=== PATIENT | male | born 1950 | race Caucasian/White ===

== ENCOUNTER 2017-11-13 10:04 | Day surgery (SDC) | payer OTHER ==
[2017-11-13 10:20] LABS: Protime INR 0.98
[2017-11-13 10:23] LABS: Absolute Lymphocytes (CBC) 0.8 K/uL (0.7-4.9); Absolute Monocytes 0.5 K/uL (0.1-1.3); Basophils % 0.8 % (0-1.3); Eosinophils % 3.2 % (0-4.4); Hematocrit 32.7 % (39.6-49.0); Lymphocytes % 12.8 % (15.3-44.8); MCH 30.3 pg (27.0-35.0); MCV 91.4 fL (80-100); Monocytes % 7.4 % (3.3-12.3); RBC Red Blood Cell Count 3.58 M/uL (4.33-5.43)
[2017-11-13] MEDS ORDERED: NA CHLORIDE 0.9% 1,000 ML ONE (10:32)
--- NOTE | 2017-11-13 10:47 | RAD REPORT ---
EXAM DESCRIPTION: RAD - Chest Pa And Lat (2 Views) - 11/13/2017 10:03 am CLINICAL HISTORY: Preop chest, pending toe amputation, history of diabetes COMPARISON: January 2017 TECHNIQUE: PA and lateral views of the chest were obtained. FINDINGS: The lungs are mildly fibrotic as a baseline. No peripheral mass, infiltrate or failure fin ding. Heart size is normal and central vasculature is within normal limits. No pleural effusion or pneumothorax seen. Scattered bony degenerative changes are present. No acute or destructive bone pr ocess seen. No acute aortic finding seen. No free air under the diaphragm. Patient has a normal varia nt bowel interposition between the liver and right hemidiaphragm. IMPRESSION: Mild fibrotic pattern not substantially different from comparison imaging. No acute card iopulmonary process.
--- NOTE | 2017-11-13 12:27 | EKG ---
Test Date: 2017-11-13 Test Time: 09:40:21 Business Architect: SARAH MEASUREMENT RESULTS: Intervals: Rate: 74 IA: 156 QRSD: 74 QT: 390 QTc: 432 [place]: P: 33 IA: 156 QRS: 41 T: 45 INTERPRETIVE STATEMENTS: Normal sinus rhythm Normal ECG Compared to ECG 12/10/2015 06:52:06 No significant changes Electronically Signed On 11-13-17 12:25:50 CDT by Boni Frost
[2017-11-13] MEDS ORDERED: MIDAZOLAM HCL 2 MG/2 ML INJ ONE (12:37)
[2017-11-13] MEDS ORDERED: PROPOFOL 200 MG/20 ML VIAL IV ONE (12:37)
[2017-11-13] MEDS ORDERED: FENTANYL CITR 100 MCG/2 ML ONE (12:37)
[2017-11-13] MEDS ORDERED: BUPIVACAINE 0.5% PF 10 ML VIAL ONE (12:51)
[2017-11-13] MEDS ORDERED: LIDOCAINE 1% 20 ML MDV ONE (12:52)
[2017-11-13] MEDS ORDERED: NS 0.9% VIAL 10 ML ONE (13:13)
[2017-11-13] MEDS ORDERED: CEFAZOLIN SODIUM 1 GM/VIAL ONE (13:13)
[2017-11-13] MEDS ORDERED: ONDANSETRON HCL 40 MG/20 ML VIAL ONE (13:30)
[2017-11-13] MEDS ORDERED: EPHEDRINE SULF 50 MG/ML SYR ONE (13:30)
--- NOTE | 2017-11-13 13:31 | P.OP ---
Preoperative diagnosis: left second digit osteomyelitis Primary procedure: Left second digit amputation Anesthesia: mac with 7cc 1:1 1% lidocaine/ 0.5% marcaine plain Estimated blood loss: <20cc Specimen: toe Findings: open wound left second digit with exposure of the proximal phalanx Operative Technique: amputation of the left second digit at the 2nd mpj Complications: None Transferred to: Recovery Room Condition: Good
[2017-11-13] MEDS ORDERED: TRAMADOL HCL 50 MG TAB ONE (14:49)
[2017-11-13 15:19] VITALS: BP 155/77; TEMP 98; O2SAT 97
== END 2017-11-13 14:50 | disposition home or self-care (01) ==
LOC: OR 10:04
PROVIDERS: ATTEND Podiatrist Foot & Ankle Surgery
PROC: 0Y6S0Z0 Detachment at Left 2nd Toe, Complete, Open Approach (ICD-10-PCS; principal; 2017-11-13 12:00)
DX: E11.69 Type 2 diabetes mellitus with other specified complication (principal); M86.8X7 Other osteomyelitis, ankle and foot; E11.52 Type 2 diabetes mellitus with diabetic peripheral angiopathy with gangrene; I96 Gangrene, not elsewhere classified; I10 Essential (primary) hypertension
CPT/HCPCS: 28820; 36415; 71046; 82947; 82962 ×2; 85025; 85610; 85730; 88305; 88311; 93005; J0690; J2250; J2405; J3010; J7030

== ENCOUNTER 2019-04-28 03:26 | Inpatient (IN) | payer OTHER ==
[2019-04-28] MEDS ORDERED: NA CHLORIDE 0.9% 1,000 ML ONE ×2 (03:45→04:46)
[2019-04-28] MEDS ORDERED: INSULIN -REGULAR HUMAN 50 UNIT/0.5 ML ML ONE ×2 (03:45→04:45)
[2019-04-28 03:56] LABS: Absolute Lymphocytes (CBC) 0.6 K/uL (0.7-4.9); Basophils % 0.5 % (0-1.3); Hematocrit 28.6 % (39.6-49.0); Lymphocytes % 4.3 % (15.3-44.8); MPV 8.8 fL (7.6-11.3); RBC Red Blood Cell Count 2.78 M/uL (4.33-5.43)
[2019-04-28] MEDS ORDERED: ONDANSETRON 4 MG/2 ML VIAL ONE (04:04)
[2019-04-28 04:12] LABS: Albumin 3.5 g/dL (3.4-5.0); Bilirubin Direct 0.3 mg/dL (0-0.2); Bilirubin Total 0.8 mg/dL (0.2-1.0); Potassium 4.8 mmol/L (3.5-5.1)
[2019-04-28] MEDS ORDERED: PROMETHAZINE 25 MG/ML VIAL ONE (04:30)
[2019-04-28 04:40] LABS: Blood Morphology Comment NOT SEEN (NOT SEEN); Platelet Estimate ADEQ; Urine White Blood Cell Casts OK
[2019-04-28 04:40] LABS: Arterial Blood Carboxyhemoglob 1.9 % (0-1.5); Blood Gas Oxyhemoglobin 92.5 % (94-97); Blood O2 Saturation 95.3 % (92-98.5)
[2019-04-28] MEDS ORDERED: NA CHLORIDE 0.9% 100 ML IV ONE (04:46)
--- NOTE | 2019-04-28 05:05 | ER ---
Nurse's Notes [facility] Name: Scott Mederos Age: 69 yrs Sex: Male : 1950 Arrival Date: 04/28/2019 Time: 03:29 Bed 6 Private MD: Diagnosis: Other specified diabetes mellitus with ketoacidosis Presentation: 04/28 03:36 Presenting complaint: EMS states: pt found on floor at front door due to N/V. Blood ak1 sugar for EMS reads HIGH on the glucometer. pt awake and alert. EMS administered 4mg zofran IV and 400mL NS. pt stated he has shingles right now. Transition of care: patient was not received from another setting of care. Onset of symptoms was April 28, 2019. Risk Assessment: Do you want to hurt yourself or someone else? Patient reports no desire to harm self or others. Initial Sepsis Screen: Does the patient meet any 2 criteria? No. Patient's initial sepsis screen is negative. Does the patient have a suspected source of infection? No. Patient's initial sepsis screen is negative. Care prior to arrival: None. 03:36 Method Of Arrival: EMS: [facility] ak1 03:36 Acuity: LUIS 3 ak1 Triage Assessment: 03:40 General: Appears uncomfortable, slender, Behavior is calm, agitated. Pain: Denies pain. ak1 EENT: pt c/o he has shingles . Neuro: Level of Consciousness is awake, alert, obeys commands, Oriented to person, place, situation, Moves all extremities. Speech is normal. Cardiovascular: No deficits noted. Respiratory: Airway is patent Respiratory effort is even, unlabored, Respiratory pattern is regular. GI: Abdomen is flat, non-distended, Reports nausea, vomiting. : No signs and/or symptoms were reported regarding the genitourinary system. Derm: Reports shingles. Musculoskeletal: Range of motion: intact in all extremities. Musculoskeletal: Amputation of left first toe and left second toe. Historical: - Allergies: 03:40 Acyclovir; ak1 03:40 Demerol; ak1 03:40 meperidine; ak1 03:40 vancomycin; ak1 - Home Meds: 03:40 rosuvastatin Oral [Active]; Protonix Oral [Active]; Plavix Oral [Active]; midodrine ak1 Oral [Active]; levothyroxine oral [Active]; Colace Oral [Active]; Benadryl Oral [Active]; Novolog Sub-Q [Active]; - PMHx: 03:40 Diabetes - IDDM; GERD; High Cholesterol; Hypertension; Hypothyroidism; Neck/Throat ak1 Cancer; Renal Disease; - PSHx: 03:40 left great toe amputation; left first toe amputation; ak1 - Immunization history:: Adult Immunizations unknown. - Social history:: Smoking status: unknown. - Ebola Screening: : No symptoms or risks identified at this time. Screenin:46 Abuse screen: Denies threats or abuse. Denies injuries from another. Nutritional ak1 screening: No deficits noted. Tuberculosis screening: No symptoms or risk factors identified. Fall Risk None identified. Assessment: 03:46 Reassessment: Patient appears in no apparent distress at this time. No changes from ak1 previously documented assessment. no vomiting noted in ER6. Patient states symptoms have improved. 03:49 Reassessment: CBG result. HI mg/Dl ED provider aware. BMP specimen sent to laboratory.. rr5 04:04 Reassessment: left a message for Mrs. Ijeoma Mederos at [phone]. will attempt to [facility] contact again. 05:30 Reassessment: Dr. Alexis at bedside. ak1 06:23 Reassessment: Patient appears in no apparent distress at this time. No changes from ak1 previously documented assessment. Patient and/or family updated on plan of care and expected duration. Pain level reassessed. no vomiting noted while in ER6. pt informed of need to go to ICU. pt contacted and informed of pt ER visit and hospitalization . Patient states symptoms have improved. Vital Signs: 03:40 BP 116 / 69; Pulse 91; Resp 16; Temp 97.9; Pulse Ox 95% on R/A; Weight 74.84 kg (R); ak1 Height 6 ft. 0 in. (182.88 cm) (R); Pain 0/10; 05:03 BP 131 / 70; Pulse 88; Resp 16; Temp 97.9; Pulse Ox 95% on R/A; ak1 05:52 BP 123 / 63; Pulse 80; Resp 16; Pulse Ox 99% on R/A; ak1 06:24 BP 114 / 53; Pulse 81; Resp 16; Temp 98.1; Pulse Ox 99% on R/A; Pain 0/10; ak1 07:25 BP 118 / 60; Pulse 80; Resp 16; Pulse Ox 99% on R/A; sg 03:40 Body Mass Index 22.38 (74.84 kg, 182.88 cm) ak1 ED Course: 03:29 Patient arrived in ED. tw4 03:31 Delmer Jamison MD is Attending Physician. tw4 03:36 Marifer Wilhelm, RN is Primary Nurse. ak1 03:38 Triage completed. ak1 03:40 Arm band placed on Patient placed in an exam room, on a stretcher, on pulse oximetry, ak1 Patient notified of wait time. 03:46 Patient has correct armband on for positive identification. Placed in gown. Bed in low ak1 position. Call light in reach. Side rails up X2. Pulse ox on. NIBP on. Lights dimmed. Warm blanket given. 03:46 Maintain EMS IV. Dressing intact. Good blood return noted. Site clean \T\ dry. Gauge \T\ ak 1 site: 20g right AC. 04:15 Notified ED physician of a critical lab result(s). CO2 11, Glucose 692. ak1 05:02 Shannan Alexis MD is Hospitalizing Provider. tw4 05:03 No provider procedures requiring assistance completed. Patient admitted, IV remains in ak1 place. 07:28 Primary Nurse role handed off by Marifer Wilhelm, RN bd Administered Medications: 03:50 Drug: Insulin Regular Human 10 units {Co-Signature: ak1 (Marifer Wilhelm RN).} Route: IVP; rr5 Site: right antecubital; 05:01 Follow up: Response: No adverse reaction ak1 03:52 Drug: NS 0.9% 1000 ml Route: IV; Rate: 125 ml/hr; Site: right antecubital; rr5 04:31 Follow up: Rate change 1000 bolus ak1 05:42 Follow up: IV Status: Completed infusion ak1 04:06 Drug: Zofran 4 mg Route: IVP; Site: right antecubital; rr5 04:32 Follow up: Response: Nausea unchanged ak1 04:31 Drug: Phenergan 12.5 mg Route: IVP; Site: right antecubital; ak1 05:00 Follow up: Response: No adverse reaction; Nausea is decreased ak1 05:00 Drug: NS 0.9% 1000 ml Route: IV; Rate: 125 ml/hr; Site: right antecubital; ak1 05:01 Drug: Insulin Drip - (Insulin Regular Human 100 units, NS 0.9% 100 ml) {Co-Signature: ak1 rr5 (Liam Poe RN).} Route: IV; Rate: calculated rate; Site: right antecubital; Point of Care Testing: Blood Glucose: 03:40 Blood Glucose: High (>450 mg/dL); ak1 07:25 Blood Glucose: 360 mg/dL; hb Ranges: Outcome: 05:03 Decision to Hospitalize by Provider. 4 05:04 critical ak1 05:04 Instructed on the need for admit. 08:43 Admitted to ICU accompanied by nurse, accompanied by tech, via stretcher, room 7, with sg chart, Report called to ROSANNA Brown 08:59 Patient left the ED. bd Signatures: Cortney Barba Steven RN Marifer Parham RN RN ak1 Rosemary Parsons RN RN Delmer Jamison MD MD tw4 Liam Poe RN RN rr5 Marifer Wilhelm RN ak1 Liam Poe RN rr5
--- NOTE | 2019-04-28 05:05 | EDPHYS ---
Physician Documentation [facility] Name: Scott Mederos Age: 69 yrs Sex: Male : 1950 Arrival Date: 04/28/2019 Time: 03:29 Bed 6 Private MD: ED Physician Delmer Jamison HPI: 04/28 03:29 This 69 yrs old Male presents to ER via Unassigned with complaints of tw4 vomiting. 03:29 The patient presents to the emergency department with nausea, vomiting. Onset: The tw4 symptoms/episode began/occurred just prior to arrival. Possible causes: unknown. The symptoms are aggravated by nothing. The symptoms are alleviated by nothing. Associated signs and symptoms: The patient has no apparent associated signs or symptoms. Severity of symptoms: At their worst the symptoms were moderate in the emergency department the symptoms are unchanged. The patient has not experienced similar symptoms in the past. Historical: - Allergies: 03:40 Acyclovir; ak1 03:40 Demerol; ak1 03:40 meperidine; ak1 03:40 vancomycin; ak1 - Home Meds: 03:40 rosuvastatin Oral [Active]; Protonix Oral [Active]; Plavix Oral [Active]; midodrine ak1 Oral [Active]; levothyroxine oral [Active]; Colace Oral [Active]; Benadryl Oral [Active]; Novolog Sub-Q [Active]; - PMHx: 03:40 Diabetes - IDDM; GERD; High Cholesterol; Hypertension; Hypothyroidism; Neck/Throat ak1 Cancer; Renal Disease; - PSHx: 03:40 left great toe amputation; left first toe amputation; ak1 - Immunization history:: Adult Immunizations unknown. - Social history:: Smoking status: unknown. - Ebola Screening: : No symptoms or risks identified at this time. ROS: 03:29 Constitutional: Negative for fever, chills, and weight loss, Eyes: Negative for injury, tw4 pain, redness, and discharge, Cardiovascular: Negative for chest pain, palpitations, and edema, Respiratory: Negative for shortness of breath, cough, wheezing, and pleuritic chest pain. 03:29 Abdomen/GI: Positive for nausea and vomiting, nausea, vomiting, Negative for abdominal pain, diarrhea, constipation, abdominal cramps, abdominal distension, anorexia, black/tarry stool, rectal pain, rectal bleeding. Exam: 03:29 Constitutional: This is a well developed, well nourished patient who is awake, alert, tw4 and in no acute distress. Head/Face: Normocephalic, atraumatic. Chest/axilla: Normal chest wall appearance and motion. Nontender with no deformity. No lesions are appreciated. Cardiovascular: Regular rate and rhythm with a normal S1 and S2. No gallops, murmurs, or rubs. Normal PMI, no JVD. No pulse deficits. Respiratory: Lungs have equal breath sounds bilaterally, clear to auscultation and percussion. No rales, rhonchi or wheezes noted. No increased work of breathing, no retractions or nasal flaring. Abdomen/GI: Soft, non-tender, with normal bowel sounds. No distension or tympany. No guarding or rebound. No evidence of tenderness throughout. Back: No spinal tenderness. No costovertebral tenderness. Full range of motion. MS/ Extremity: Pulses equal, no cyanosis. Neurovascular intact. Full, normal range of motion. Neuro: Awake and alert, GCS 15, oriented to person, place, time, and situation. Cranial nerves II-XII grossly intact. Motor strength 5/5 in all extremities. Sensory grossly intact. Cerebellar exam normal. Normal gait. Vital Signs: 03:40 BP 116 / 69; Pulse 91; Resp 16; Temp 97.9; Pulse Ox 95% on R/A; Weight 74.84 kg (R); ak1 Height 6 ft. 0 in. (182.88 cm) (R); Pain 0/10; 05:03 BP 131 / 70; Pulse 88; Resp 16; Temp 97.9; Pulse Ox 95% on R/A; ak1 05:52 BP 123 / 63; Pulse 80; Resp 16; Pulse Ox 99% on R/A; ak1 06:24 BP 114 / 53; Pulse 81; Resp 16; Temp 98.1; Pulse Ox 99% on R/A; Pain 0/10; ak1 07:25 BP 118 / 60; Pulse 80; Resp 16; Pulse Ox 99% on R/A; sg 03:40 Body Mass Index 22.38 (74.84 kg, 182.88 cm) ak1 MDM: 03:31 Patient medically screened. tw 05:04 Differential diagnosis: Nonspecific abd pain, gastritis, cholecystitis, pancreatitis. tw4 Data reviewed: vital signs, nurses notes, old medical records, lab test result(s), CBC, white blood cell count, hemoglobin, hematocrit, platelets, electrolytes, sodium, potassium, chloride, serum bicarbonate, BUN, creatinine, hepatic panel. Data interpreted: Pulse oximetry: Interpretation: normal. Counseling: I had a detailed discussion with the patient and/or guardian regarding: the historical points, exam findings, and any diagnostic results supporting the discharge/admit diagnosis, the presence of at least one elevated blood pressure reading (>120/80) during this emergency department visit. Medication response: insulin bolus not improved will place on insulin drip. Physician consultation: Shannan Alexis MD regarding admission, and will see patient in ED. 04/28 03:33 Order name: Basic Metabolic Panel; Complete Time: 04:21 tw4 04/28 05:01 Interpretation: Normal except: NA 130; CL 89; CO2 11; GLUC 692; BUN 42; CRE 2.41. tw04/28 03:33 Order name: CBC with Diff; Complete Time: 05:01 tw4 04/28 05:01 Interpretation: Normal except: WBC 12.9; HGB 9.2; HCT 28.6; RBC 2.78; MCV 103.0; MCH tw4 33.3; LYM% 4.3; MARY% 90.3; NEUT A 11.7; LYMA 0.6. 04/28 03:33 Order name: Creatinine for Radiology; Complete Time: 04:21 tw4 04/28 05:02 Interpretation: Normal except: CRE 2.42; GFR 27. tw4 04/28 03:33 Order name: Hepatic Function; Complete Time: 04:21 tw4 04/28 05:02 Interpretation: Normal except: ALK 223; BILID 0.3; A/G 1.0. 4 04/28 03:33 Order name: Lipase; Complete Time: 04:21 tw4 04/28 05:02 Interpretation: Within normal limits: LIP 55. 04/28 03:39 Order name: Acetone, Serum 04/28 03:40 Order name: Acetone Level; Complete Time: 04:21 EDMA 04/28 05:02 Interpretation: Abnormal: ACET LARGE. 04/28 03:47 Order name: Glucose, Ancillary Testing; Complete Time: 04:21 EDMS 04/28 04:25 Order name: ABG; Complete Time: 05:01 rr5 04/28 04:41 Order name: CBC Smear Scan; Complete Time: 05:01 EDMS 04/28 04:55 Order name: Glucose rr5 04/28 05:10 Order name: Glucose, Ancillary Testing EDMS 04/28 06:13 Order name: Glucose, Ancillary Testing EDMS 04/28 06:26 Order name: Chem 7: at 0730. ak1 04/28 06:37 Order name: Acetone Level EDMS 04/28 06:37 Order name: Acetone Level EDMS 04/28 06:37 Order name: Acetone Level EDMS 04/28 06:37 Order name: Basic Metabolic Panel EDMS 04/28 06:37 Order name: Basic Metabolic Panel EDMS 04/28 06:37 Order name: Basic Metabolic Panel EDMS 04/28 06:38 Order name: Calcium Level EDMS 04/28 06:38 Order name: Calcium Level EDMS 04/28 06:38 Order name: Calcium Level EDMS 04/28 06:38 Order name: Calcium Level EDMS 04/28 06:38 Order name: CBC with Automated Diff EDMS 04/28 06:38 Order name: CBC with Automated Diff EDMS 04/28 06:38 Order name: CBC with Automated Diff EDMS 04/28 06:38 Order name: CBC with Automated Diff EDMS 04/28 06:38 Order name: Lipid Profile EDMS 04/28 06:38 Order name: Lipid Profile EDMS 04/28 03:33 Order name: IV Saline Lock; Complete Time: 03:40 tw4 04/28 03:33 Order name: Labs collected and sent; Complete Time: 03:40 tw4 04/28 06:37 Order name: CONS Pharmacy Consult EDMS 04/28 06:38 Order name: Magnesium EDMS 04/28 06:38 Order name: Magnesium EDMS 04/28 06:38 Order name: Magnesium EDMS 04/28 06:38 Order name: Magnesium EDMS 04/28 06:38 Order name: Phosphorus EDMS 04/28 06:38 Order name: Phosphorus EDMS 04/28 06:38 Order name: Phosphorus EDMS 04/28 06:38 Order name: Phosphorus EDMS 04/28 07:35 Order name: Glucose, Ancillary Testing EDMS Administered Medications: 03:50 Drug: Insulin Regular Human 10 units {Co-Signature: ak1 (Marifer Wilhelm RN).} Route: IVP; rr5 Site: right antecubital; 05:01 Follow up: Response: No adverse reaction ak1 03:52 Drug: NS 0.9% 1000 ml Route: IV; Rate: 125 ml/hr; Site: right antecubital; rr5 04:31 Follow up: Rate change 1000 bolus ak1 05:42 Follow up: IV Status: Completed infusion ak1 04:06 Drug: Zofran 4 mg Route: IVP; Site: right antecubital; rr5 04:32 Follow up: Response: Nausea unchanged ak1 04:31 Drug: Phenergan 12.5 mg Route: IVP; Site: right antecubital; ak1 05:00 Follow up: Response: No adverse reaction; Nausea is decreased ak1 05:00 Drug: NS 0.9% 1000 ml Route: IV; Rate: 125 ml/hr; Site: right antecubital; ak1 05:01 Drug: Insulin Drip - (Insulin Regular Human 100 units, NS 0.9% 100 ml) {Co-Signature: ak1 rr5 (Liam Poe RN).} Route: IV; Rate: calculated rate; Site: right antecubital; Point of Care Testing: Blood Glucose: 03:40 Blood Glucose: High (>450 mg/dL); ak1 07:25 Blood Glucose: 360 mg/dL; hb Ranges: Critical Glucose Levels:Adult <50 mg/dl or >400 mg/dl <40 mg/dl or >180 mg/dl Disposition: 04/28/19 05:03 Hospitalization ordered by Shannan Alexis for Inpatient Admission. Preliminary diagnosis is Other specified diabetes mellitus with ketoacidosis. - Bed requested for Intensive Care Unit. - Status is Inpatient Admission. bd - Condition is Stable. - Problem is new. - Symptoms have improved. UTI on Admission? No Critical care time excluding procedures: 05:02 Critical care time: Bedside Care: 20 minutes, Consultation: 5 minutes, 5 mintues: 5 tw4 minutes. Total time: 30 minutes Signatures: Dispatcher [employer] EDMS Cortney Barba Amber RN RN ak1 Marvin Johnson PA PA cp Wadley, Terrence MD MD tw4 Liam Poe, RN RN rr5 Marifer Wilhelm RN ak1 Liam Poe RN rr5 Corrections: (The following items were deleted from the chart) 05:04 05:03 Hospitalization Ordered by Shannan Alexis MD for Inpatient Admission. Preliminary tw4 diagnosis is Other specified diabetes mellitus with ketoacidosis. Bed requested for Telemetry/MedSurg (Inpatient). Status is Inpatient Admission. Condition is Stable. Problem is new. Symptoms have improved. UTI on Admission? No. tw4 07:16 05:04 04/28/2019 05:03 Hospitalization Ordered by Shannan Alexis MD for Inpatient bd Admission. Preliminary diagnosis is Other specified diabetes mellitus with ketoacidosis. Bed requested for Intensive Care Unit. Status is Inpatient Admission. Condition is Stable. Problem is new. Symptoms have improved. UTI on Admission? No. tw4 08:59 07:16 04/28/2019 05:03 Hospitalization Ordered by Shannan Alexis MD for Inpatient bd Admission. Preliminary diagnosis is Other specified diabetes mellitus with ketoacidosis. Bed requested for Intensive Care Unit. Status is Inpatient Admission. Condition is Stable. Problem is new. Symptoms have improved. UTI on Admission? No. bd
[2019-04-28] MEDS ORDERED: INSULIN -REGULAR HUMAN 100 UNIT in NA CHLORIDE 0.9% 100 ML IV SCH (06:45)
--- NOTE | 2019-04-28 07:24 | P.HP ---
Certification for Inpatient Patient admitted to: Inpatient With expected LOS: >2 Midnights Patient will require the following post-hospital care: None Practitioner: I am a practitioner with admitting privileges, knowledge of patient current condition, hospital course, and medical plan of care. Services: Services provided to patient in accordance with Admission requirements found in Title 42 Section 412.3 of the Code of Federal Regulations Patient History Date of Service: 04/28/19 Reason for admission: Diabetic ketoacidosis History of Present Illness: Patient is a 69-year-old gentleman who came to the hospital with intractable nausea and vomiting. Patient is a diabetic and he states he has been taking his insulin as scheduled. He came in with diabetic ketoacidosis. Patient was started on insulin drip. He was given IV fluids. Patient also appears to be very cachectic and he looks to have lost a lot of weight. He will be admitted to the hospital for treatment of his diabetic ketoacidosis. Allergies meperidine [From Demerol] Allergy (Unverified 11/13/17 09:16) Unknown acyclovir Adverse Reaction (Verified 11/13/17 09:16) acute renal injury vancomycin Adverse Reaction (Verified 11/13/17 09:16) acute kidney injury Home Medications: Acetaminophen [Tylenol] 325 mg PO DAILYPRN PRN 11/13/17 Clopidogrel Bisulfate [Plavix] 75 mg PO DAILY 11/13/17 Docusate [Colace Cap] 100 mg PO DAILY 11/13/17 Insulin Aspart [Novolog] 0 unit SQ DAILY 11/13/17 Insulin Degludec [Tresiba Flextouch U-100] 30 unit SQ DAILY 11/13/17 Lactulose [Cephulac] 20 gm PO BEDTIME 11/13/17 Linagliptin [Tradjenta] 5 mg PO DAILY 11/13/17 Mirtazapine 45 mg PO BEDTIME 11/13/17 Pantoprazole [Protonix Tab] 40 mg PO DAILY 11/13/17 Rosuvastatin [Crestor] 5 mg PO BEDTIME 11/13/17 Trazodone [Desyrel] 150 mg PO BEDTIME 11/13/17 - Past Medical/Surgical History Diabetic: Yes -: Hx Throat CA -: HTN -: Diabetes- IDDM -: GERD -: Hypothyroidism -: Hyperlipidemia -: Shingles -: shingles -: renal disease -: bilateral cataract removal -: amputation of left great toe Psychosocial/ Personal History: ; patient apparently struck gold on some land that he has between [place] and [place]. - Family History Father Medical History: Heart disease Mother Medical History: Hypertension Brother Medical History: Hypertension Sister Medical History: Hypertension, Stroke - Social History Smoking Status: Former smoker Alcohol use: No CD- Drugs: No Review of Systems 10-point ROS is otherwise unremarkable Physical Examination - Vital Signs Temperature: 98 F Blood Pressure: 140/80 Pulse: 80 Respirations: 18 Pulse Ox (%): 96 - Physical Exam General: Alert, In no apparent distress, Oriented x3, Cachectic HEENT: Atraumatic, PERRLA, Mucous membr. moist/pink, EOMI, Sclerae nonicteric Neck: Supple, 2+ carotid pulse no bruit, No LAD, Without JVD or thyroid abnormality Respiratory: Clear to auscultation bilaterally, Normal air movement Cardiovascular: Regular rate/rhythm, Normal S1 S2, No murmurs Gastrointestinal: Normal bowel sounds, Soft and benign, Non-distended, No tenderness Musculoskeletal: No clubbing, No swelling, No tenderness Integumentary: No rashes Neurological: Normal gait, Normal speech, Normal strength at 5/5 x4 extr, Normal tone, Sensation intact, Cranial nerves 3-12 intact, Normal affect Lymphatics: No axilla or inguinal lymphadenopathy - Studies Laboratory Data (last 24 hrs) 04/28/19 04:55: Glucose 520 H* 04/28/19 03:35: Creatinine 2.42 H 04/28/19 03:35: WBC 12.9 H, Hgb 9.2 L, Hct 28.6 L, Plt Count 283 04/28/19 03:35: Sodium 130 L, Potassium 4.8, BUN 42 H, Creatinine 2.41 H, Glucose 692 H*, Total Bilirubin 0.8, AST 17, ALT 31, Alkaline Phosphatase 223 H , Lipase 55 L Assessment & Plan - Problems (Diagnosis) (1) DKA (diabetic ketoacidoses) Current Visit: Yes Status: Acute - Plan 1. IV hydration 2. Insulin drip 3. Accu-Cheks q1h 4. Measure anion gap every 4 hrs 5. Resume diet once anion gap is closed and will resume long-acting insulin 6. Diabetic education 7. Long-acting insulin once patient able to tolerate diet and at that time will discontinue insulin drip after 1hr of starting long acting insulin Discharge Plan: Home Plan to discharge in: Greater than 2 days - Advance Directives Does patient have a Living Will: No Does patient have a Durable POA for Healthcare: No - Code Status/Comfort Care Code Status Assessed: Yes Code Status: Full Code Critical Care: No Time Spent Managing PTS Care (In Minutes): 50
[2019-04-28 08:00] LABS: BUN Blood Urea Nitrogen 39 mg/dL (7-18); Bicarbonate 21 mmol/L (21-32); Glucose Level 336 mg/dL (74-106); Potassium 4.1 mmol/L (3.5-5.1); Sodium Level 138 mmol/L (136-145)
[2019-04-28] MEDS: ONDANSETRON 4 MG/2 ML VIAL IV PRN (09:50)
[2019-04-28] MEDS: NACHLORIDE 0.45% 1,000 ML IV SCH ×3 (10:38→21:09)
[2019-04-28] MEDS: PANTOPRAZOLE 40MG TABLET PO SCH (10:39)
[2019-04-28] MEDS: CLOPIDOGREL 75 MG TABLET PO SCH (10:39)
[2019-04-28] MEDS: ENOXAPARIN 40 MG/0.4 ML SQ SCH (10:39)
[2019-04-28 11:20] VITALS: BMI 20.5
[2019-04-28 11:24] LABS: Urine Appearance CLEAR; Urine Blood TRACE (NEG); Urine Color YELLOW; Urine Glucose 3+ (NEG); Urine Protein TRACE (NEG); Urine Specific Gravity 1.025 (1.005-1.030); Urine Urobilinogen 0.2 mg/dL (0.2-1.0); Urine pH 5.5 (5.0-7.0)
[2019-04-28 11:34] LABS: Urine Bilirubin NEGATIVE (NEG); Urine Microscopic Reflex ORDER UMIC
[2019-04-28 12:36] LABS: Urine Amorphous Sediment 1+ /HPF (NONE SEEN); Urine Bacteria <20 /HPF (NONE SEEN); Urine Culture Reflex Order REFLEXED; Urine RBC <5 /HPF (NONE SEEN)
[2019-04-28 12:51] LABS: BUN Blood Urea Nitrogen 36 mg/dL (7-18); Bicarbonate 28 mmol/L (21-32); Glucose Level 201 mg/dL (74-106); Potassium 4.5 mmol/L (3.5-5.1); Sodium Level 140 mmol/L (136-145)
[2019-04-28] MEDS ORDERED: GLUCAGON 1 MG/VIAL IM PRN ×2 (13:08→16:26)
[2019-04-28] MEDS ORDERED: D50W 25 GM/50 ML SYRINGE IV PRN ×2 (13:08→16:26)
[2019-04-28] MEDS: GABAPENTIN 300 MG CAP PO SCH ×2 (13:27→21:00)
--- NOTE | 2019-04-28 15:33 | PN ---
Date of Progress Note: 04/28/2019 Subjective: The patient seen and examined. Chart reviewed and case discussed with RN. The patient still appears somewhat lethargic and dehydrated. Medications: List reviewed. Physical Examination: Vital Signs: Temperature 98, heart rate 80, blood pressure 140/80, respirations 18, O2 of 96% on katy m air. General: Awake, alert, oriented x2. Elderly male. CV: S1, S2. Regular rate and rhythm. Peripheral pulses present. Respiratory: Moving air well bilaterally. No wheezing or stridor. No use of accessory muscles. Gastrointestinal: Abdomen is soft, nontender, nondistended. Positive bowel sounds. Extremities: No clubbing, cyanosis, or edema. Neurologic: Nonfocal. Skin: No rashes. Normal skin turgor. Laboratory Data: Sodium 138, potassium 4.1, chloride 101, CO2 of 21, BUN 39, creatinine 2.14, glucos e 336, calcium 8.9. WBC 12.9, H and H 9.2 and 28.6, platelets 283, neutrophils 90%. Assessment: A 69-year-old male with: 1.Diabetic ketoacidosis. We will continue with IV insulin. Monitor serial BMPs q.4 hours. Anion g ap is still elevated at 16. Repeat BMP check at noon. Once gap is closed, we will switch to subcuta neous insulin and start on diabetic diet. 2.Acute on chronic kidney injury, stage 3. Creatinine is above baseline of 1.3. Patient will olivia nue with IV fluids and monitor. Slightly improved on repeat BMP. 3.Mixed hyperlipidemia. Continue statin. 4.History of cerebrovascular accident, on Plavix. 5.Essential hypertension, stable. 6.History of throat cancer. 7.Hypothyroidism. Continue Synthroid. 8.Anemia, likely anemia of chronic disease, has elevated MCV. We will check vitamin B12 and folate level. Plan: Continue monitoring in ICU setting. Likely discharge in the next 24-48 hours. /JERONIMO Voice ID: [id number] Report ID: [id number]
[2019-04-28] MEDS: INSULIN -REGULAR HUMAN 50 UNIT/0.5 ML ML SQ SCH ×2 (16:19→22:34)
[2019-04-28] MEDS ORDERED: INSULIN GLARGINE 100 UNITS/ML SQ ONE (16:26)
[2019-04-28] MEDS: ROSUVASTATIN 10 MG TAB PO SCH (21:00)
[2019-04-28] MEDS: TRAZODONE 150 MG TAB PO SCH (21:00)
[2019-04-28] MEDS: MIRTAZAPINE 15 MG TAB PO SCH (21:00)
[2019-04-28] MEDS ORDERED: FENTANYL CITR 100 MCG/2 ML IV PRN (21:50)
[2019-04-29] MEDS: NACHLORIDE 0.45% 1,000 ML IV SCH ×3 (05:34→21:20)
[2019-04-29 05:42] LABS: Absolute Lymphocytes (CBC) 0.6 K/uL (0.7-4.9); Basophils % 0.7 % (0-1.3); Hematocrit 28.7 % (39.6-49.0)
[2019-04-29 06:06] LABS: Folic Acid, (Folate) 3.1 ng/mL (3.1-17.5); Magnesium 2.3 mg/dL (1.8-2.4); Phosphorus 1.3 mg/dL (2.5-4.9)
[2019-04-29] MEDS: INSULIN -REGULAR HUMAN 50 UNIT/0.5 ML ML SQ SCH ×4 (07:30→21:00)
[2019-04-29] MEDS: TRESIBA FLEX TOUCH PEN SQ SCH (07:57)
[2019-04-29] MEDS: GABAPENTIN 300 MG CAP PO SCH ×3 (07:57→21:00)
[2019-04-29] MEDS ORDERED: HOME MED 1 EA UNK SQ SCH (09:00)
[2019-04-29] MEDS: CLOPIDOGREL 75 MG TABLET PO SCH (09:00)
[2019-04-29] MEDS: ENOXAPARIN 40 MG/0.4 ML SQ SCH (09:00)
[2019-04-29] MEDS: PANTOPRAZOLE 40MG TABLET PO SCH (09:00)
--- NOTE | 2019-04-29 11:28 | RAD REPORT ---
EXAM DESCRIPTION: RAD - Barium Swallow Modified - 04/29/2019 10:57 am CLINICAL HISTORY: Dysphagia COMPARISON: None. TECHNIQUE: The patient was given liquid, semi-solid and solid forms of barium. Lateral view fluorosc opic imaging was performed in conjunction with speech pathology service. FINDINGS: Cineloop acquisitions: 21 Fluoro time: 5 minutes 2 seconds laryngeal pentration : not cleared witl all consistencies aspiration: no cough with thin pharyngeal residue : vallecular , pyriform, posterior wall other: 1 sec swallow delay, osteophyte c6-c7 causing significant esophageal narrowing at ues , esopha geal stasis IMPRESSION: Modified barium swallow as summarized above and fully detailed on speech pathology repor t.
[2019-04-29 11:32] LABS: Potassium 4.3 mmol/L (3.5-5.1)
--- NOTE | 2019-04-29 13:19 | P.PN ---
Subjective Date of Service: 04/29/19 Chief Complaint: Diabetic ketoacidosis The patient reports no new complaint. States he is thirsty and wants to drink. Anion gap has closed. Patient has been transitioned from insulin drip to subcutaneous insulin. He failed bedside swallow evaluation yesterday. MBS was performed this morning and patient noted to have significant dysphagia. Noted history of throat cancer treated with radiation therapy. Speech therapy preliminary results severe dysphagia, and alternate form of feeding recommended. Physical Examination - Vital Signs Temperature: 97.6 F Blood Pressure: 144/64 Pulse: 75 Respirations: 13 Pulse Ox (%): 96 - Physical Exam General: Alert, In no apparent distress, Oriented x3 HEENT: Atraumatic, Mucous membr. moist/pink Neck: Supple Respiratory: Clear to auscultation bilaterally, Normal air movement Cardiovascular: No edema, Regular rate/rhythm, Normal S1 S2 Gastrointestinal: Normal bowel sounds, Hypoactive, Soft and benign, Non- distended, No tenderness Musculoskeletal: No erythema Integumentary: No rashes, No erythema Neurological: Normal speech, Normal strength at 5/5 x4 extr, Cranial nerves 3- 12 intact Assessment And Plan - Current Problems (Diagnosis) (1) DKA (diabetic ketoacidoses) Current Visit: Yes Status: Acute (2) Dysphagia Current Visit: Yes Status: Acute (3) Acute worsening of stage 3 chronic kidney disease Current Visit: Yes Status: Acute (4) History of CVA (cerebrovascular accident) Current Visit: Yes Status: Acute (5) History of throat cancer Current Visit: Yes Status: Acute (6) Anemia Onset Date: 11/19/15 Current Visit: No Status: Acute (7) Rapid atrial fibrillation Current Visit: Yes Status: Acute - Plan Insert NG tube for feeding and medications. Continue insulin sliding scale GI consult for alternate form of feeding pending speech therapy report. Cardiology input appreciated. Patient transition from amiodarone drip to oral amiodarone to be given via NGT. A K. I. resolved. Creatinine is now at baseline. Transfer to the medical floor Continue to monitor hemoglobin daily Hold Plavix for impending procedure.
[2019-04-29] MEDS: ONDANSETRON 4 MG/2 ML VIAL IV PRN ×2 (14:39→21:20)
[2019-04-29] MEDS: TRAZODONE 150 MG TAB PO SCH (21:00)
[2019-04-29] MEDS: MIRTAZAPINE 15 MG TAB PO SCH (21:00)
[2019-04-29] MEDS: ROSUVASTATIN 10 MG TAB PO SCH (21:00)
[2019-04-29] MEDS ORDERED: PANTOPRAZOLE 40 MG INJ IVP ONE (23:55)
[2019-04-29] MEDS ORDERED: SODIUM CHLORIDE 0.9% 10ML INJ IV PRN (23:56)
[2019-04-30] MEDS ORDERED: FLUCONAZOLE 200mg IVPB 200 MG/100 ML BAG IV ONE (02:44)
[2019-04-30] MEDS: FLUCONAZOLE 200mg IVPB 200 MG/100 ML BAG IV SCH ×2 (02:45→22:17)
[2019-04-30] MEDS: NACHLORIDE 0.45% 1,000 ML IV SCH ×4 (05:40→18:38)
[2019-04-30] MEDS: INSULIN -REGULAR HUMAN 50 UNIT/0.5 ML ML SQ SCH ×5 (05:41→22:18)
[2019-04-30 06:01] LABS: Absolute Lymphocytes (CBC) 0.7 K/uL (0.7-4.9); Basophils % 1.2 % (0-1.3); Hematocrit 33.3 % (39.6-49.0); Lymphocytes % 9.3 % (15.3-44.8); MPV 8.8 fL (7.6-11.3); RBC Red Blood Cell Count 3.48 M/uL (4.33-5.43)
[2019-04-30 06:07] LABS: Magnesium 1.9 mg/dL (1.8-2.4); Potassium 3.9 mmol/L (3.5-5.1)
[2019-04-30 07:03] LABS: Blood Morphology Comment NOT SEEN (NOT SEEN); Platelet Estimate ADEQ
[2019-04-30] MEDS ORDERED: GLUCERNA 1.5 CAL 1,000 ML BOT FT SCH (08:00)
[2019-04-30] MEDS: ENOXAPARIN 40 MG/0.4 ML SQ SCH (09:00)
[2019-04-30] MEDS: TRESIBA FLEX TOUCH PEN SQ SCH (09:00)
[2019-04-30] MEDS: PANTOPRAZOLE 40MG TABLET PO SCH (09:00)
[2019-04-30] MEDS: GABAPENTIN 300 MG CAP PO SCH ×3 (09:00→22:16)
[2019-04-30] MEDS ORDERED: LORazepam 2 MG/ML VIAL IV ONE (09:47)
[2019-04-30] MEDS: PANTOPRAZOLE 40 MG INJ IVP SCH ×2 (09:49→22:13)
[2019-04-30] MEDS ORDERED: GLUCERNA 1.5 CAL 1,000 ML BOT RTH SCH (10:00)
--- NOTE | 2019-04-30 14:49 | RAD REPORT ---
EXAM DESCRIPTION: MRI - Brain Wo Cont - 04/30/2019 2:25 pm CLINICAL HISTORY: dysphagia, transient alteration of awareness COMPARISON: MR brain November 2015 TECHNIQUE: Sagittal T1-weighted images were obtained along with axial PD, heavily T2-weighted and T2 -FLAIR images. Axial DWI and ADC mapping sequences were also obtained along with coronal heavily T2-w eighted images. FINDINGS: No intracranial hemorrhage, mass or acute infarction. There is no edema or shift of midlin e structures. No extra-axial fluid collections. Marquez-matter/white matter junction is preserved. Signa l voids are seen as a normal finding in the major intracranial vessels. Minimal diffusion signal in t he posterior left nacho midbrain junction not felt to be sufficient for CVA diagnosis. Patient does joya ve mild to moderate atrophy. Scattered chronic ischemic change seen in the cerebral white matter. No globe or orbital content abnormality. No sella or supra sella abnormality. No tonsillar ectopia. Mastoid air cells and paranasal sinuses are clear. Motion degradation is present on multiple sequences. IMPRESSION: No intracranial hemorrhage or mass. No acute infarction changes confirmed. Mild to moderate atrophy and scattered chronic ischemic changes noted in the cerebral white matter.
--- NOTE | 2019-04-30 16:36 | RAD REPORT ---
EXAM DESCRIPTION: Lanny Single View04/30/2019 4:05 pm CLINICAL HISTORY: cough COMPARISON: 2018 FINDINGS: The lungs appear clear of acute infiltrate. The heart is normal size IMPRESSION: No acute abnormalities displayed
--- NOTE | 2019-04-30 18:30 | P.PN ---
Subjective Date of Service: 04/30/19 Chief Complaint: Diabetic ketoacidosis Patient has no complaints today. His blood sugar readings have been within acceptable range. Patient noted to have severe dysphagia. Family reports this is a new finding and he was swallowing fine the day before hospitalization. He stated that not noted any aspiration or coughing with drinking or eating. Physical Examination - Vital Signs Temperature: 97.7 F Blood Pressure: 143/75 Pulse: 75 Respirations: 18 Pulse Ox (%): 99 - Physical Exam General: Alert, In no apparent distress, Oriented x3 HEENT: Mucous membr. moist/pink Neck: Supple, JVD not distended Respiratory: Clear to auscultation bilaterally, Normal air movement Cardiovascular: No edema, Normal pulses, Regular rate/rhythm, Normal S1 S2 Capillary refill: <2 Seconds Gastrointestinal: Normal bowel sounds, Soft and benign, Non-distended, No tenderness Musculoskeletal: No swelling, No erythema Integumentary: No rashes Neurological: Normal speech, Normal strength at 5/5 x4 extr, Cranial nerves 3- 12 intact Assessment And Plan - Current Problems (Diagnosis) (1) DKA (diabetic ketoacidoses) Current Visit: Yes Status: Acute (2) Dysphagia Current Visit: Yes Status: Acute (3) Acute worsening of stage 3 chronic kidney disease Current Visit: Yes Status: Acute (4) History of CVA (cerebrovascular accident) Current Visit: Yes Status: Acute (5) History of throat cancer Current Visit: Yes Status: Acute (6) Anemia Onset Date: 11/19/15 Current Visit: No Status: Acute - Plan Patient declined NG tube insertion today and requested swallow re-evaluation Case discussed with speech therapy. Chest x-ray obtained reports no acute disease, no aspiration pneumonitis. Trial of pureed diet with a plan to repeat MBS tomorrow. Hold GI consult for now. IV Diflucan A K. I. resolved. Creatinine is now at baseline. Continue to monitor hemoglobin daily Continue Plavix for now. Continue insulin sliding scale for glucose management. Hold insulin degludec.
[2019-04-30] MEDS: MIRTAZAPINE 15 MG TAB PO SCH (22:13)
[2019-04-30] MEDS: TRAZODONE 150 MG TAB PO SCH (22:16)
[2019-04-30] MEDS: ROSUVASTATIN 10 MG TAB PO SCH (22:16)
[2019-05-01] MEDS: NACHLORIDE 0.45% 1,000 ML IV SCH ×2 (02:31→08:20)
[2019-05-01 06:07] LABS: Basophils % 1.2 % (0-1.3); Hematocrit 31.3 % (39.6-49.0); Lymphocytes % 17.3 % (15.3-44.8); MPV 7.9 fL (7.6-11.3); RBC Red Blood Cell Count 3.29 M/uL (4.33-5.43)
[2019-05-01 06:13] LABS: Magnesium 2.1 mg/dL (1.8-2.4); Phosphorus 1.8 mg/dL (2.5-4.9); Potassium 3.6 mmol/L (3.5-5.1)
[2019-05-01] MEDS: INSULIN -REGULAR HUMAN 50 UNIT/0.5 ML ML SQ SCH ×2 (07:30→12:06)
[2019-05-01] MEDS ORDERED: POTASSIUM PHOS IN 0.9 % NACL 15 MMOL/250 ML BAG IV ONE (08:00)
[2019-05-01] MEDS: PANTOPRAZOLE 40 MG INJ IVP SCH (08:43)
[2019-05-01] MEDS: ENOXAPARIN 40 MG/0.4 ML SQ SCH (08:43)
[2019-05-01] MEDS: TRESIBA FLEX TOUCH PEN SQ SCH (08:43)
[2019-05-01] MEDS: GABAPENTIN 300 MG CAP PO SCH ×2 (08:44→14:00)
--- NOTE | 2019-05-01 11:19 | P.PN ---
Subjective Date of Service: 05/01/19 Chief Complaint: Diabetic ketoacidosis Patient is doing much better today. His blood sugar readings have been within acceptable range. He has tolerated pureed diet with known aspiration. Physical Examination - Vital Signs Temperature: 97.9 F Blood Pressure: 148/67 Pulse: 76 Respirations: 18 Pulse Ox (%): 98 - Physical Exam General: Alert, In no apparent distress, Oriented x3 HEENT: Mucous membr. moist/pink Neck: Supple, JVD not distended Respiratory: Clear to auscultation bilaterally, Normal air movement Cardiovascular: No edema, Regular rate/rhythm, Normal S1 S2 Capillary refill: <2 Seconds Gastrointestinal: Normal bowel sounds, Soft and benign, Non-distended, No ascites Musculoskeletal: No swelling, No erythema Integumentary: No rashes Neurological: Normal speech, Normal strength at 5/5 x4 extr, Cranial nerves 3- 12 intact Assessment And Plan - Current Problems (Diagnosis) (1) DKA (diabetic ketoacidoses) Current Visit: Yes Status: Acute (2) Dysphagia Current Visit: Yes Status: Acute (3) Acute worsening of stage 3 chronic kidney disease Current Visit: Yes Status: Acute (4) History of CVA (cerebrovascular accident) Current Visit: Yes Status: Acute (5) History of throat cancer Current Visit: Yes Status: Acute (6) Anemia Onset Date: 11/19/15 Current Visit: No Status: Acute - Plan Given the patient is not tolerating pureed diet easily and chest x-ray demonstrated no acute disease, no aspiration event, I recommended repeat MBS and diet advancement per advancement per MBS result. Hold GI consult for now. Continue IV Diflucan LORA resolved. Creatinine is now at baseline. Hemoglobin has been stable Continue Plavix for now. Continue insulin sliding scale for glucose management. Hold insulin degludec.
[2019-05-01 12:45] VITALS: O2SAT 97
[2019-05-01 14:12] VITALS: BP 133/63; TEMP 98
--- NOTE | 2019-05-01 14:42 | P.DS ---
Admission Date: 04/28/19 Discharge Date: 05/01/19 Disposition: ROUTINE DISCHARGE Discharge Condition: FAIR Reason for Admission: Diabetic ketoacidosis - Problems (1) DKA (diabetic ketoacidoses) Current Visit: Yes Status: Acute (2) Dysphagia Current Visit: Yes Status: Acute (3) Acute worsening of stage 3 chronic kidney disease Current Visit: Yes Status: Acute (4) History of CVA (cerebrovascular accident) Current Visit: Yes Status: Acute (5) History of throat cancer Current Visit: Yes Status: Acute (6) Anemia Onset Date: 11/19/15 Current Visit: No Status: Acute Brief History of Present Illness: 69-year-old gentleman with a history of diabetes [id number] presented to the emergency department with a complaint of intractable nausea and vomiting. In the ED patient blood sugar was elevated to 692, his blood was acidotic indicating DKA. Patient was started on insulin drip and admitted for further management. Hospital Course: Patient admitted to the ICU on insulin drip and IV hydration per DKA protocol. DKA resolved within 24 hrs, patient was transitioned to insulin sliding scale. His blood sugar readings were within acceptable range with the insulin sliding scale. He was subsequently transferred to the general medical floor where patient was noted to have dysphagia. He was seen by speech therapy, bedside swallow evaluation and MBS were done which reported severe oral pharyngeal dysphagia. It was difficult for patient and family to accept the diagnosis of dysphagia and requested for evaluation. Speech therapy re-evaluate it patient and placed on pureed diet and honey thickened liquids. Patient tolerated this diet modification. Speech therapy recommended follow up as an outpatient for repeat MBS as soon as possible. Patient's is deemed clinically stable for discharge. He has been counseled on this diet modification and advised to be compliant. Also discussed risk of aspiration if he is not compliant with his recommended diet modification. His home insulin regimen has been resumed on discharge. Vital Signs/Physical Exam: Temp Pulse Resp BP Pulse Ox 98 F 84 18 133/63 97 05/01/19 12:00 05/01/19 12:00 05/01/19 12:00 05/01/19 12:00 05/01/19 12:00 General: Alert, In no apparent distress, Oriented x3 HEENT: Mucous membr. moist/pink Neck: Supple Respiratory: Clear to auscultation bilaterally, Normal air movement Cardiovascular: No edema, Regular rate/rhythm, Normal S1 S2 Gastrointestinal: Normal bowel sounds, Soft and benign, Non-distended, No tenderness Musculoskeletal: No swelling Integumentary: No rashes Neurological: Normal speech Laboratory Data at Discharge: WBC 6.0 K/uL (4.3-10.9) D 05/01/19 05:15 Hgb 11.1 g/dL (13.6-17.9) L 05/01/19 05:15 Hct 31.3 % (39.6-49.0) L 05/01/19 05:15 Plt Count 212 K/uL (152-406) D 05/01/19 05:15 Sodium 135 mmol/L (136-145) L 05/01/19 05:15 Potassium 3.6 mmol/L (3.5-5.1) 05/01/19 05:15 BUN 17 mg/dL (7-18) 05/01/19 05:15 Creatinine 1.12 mg/dL (0.55-1.3) 05/01/19 05:15 Glucose 161 mg/dL (74-106) H 05/01/19 05:15 Phosphorus 1.8 mg/dL (2.5-4.9) L 05/01/19 05:15 Magnesium 2.1 mg/dL (1.8-2.4) 05/01/19 05:15 Total Bilirubin 0.8 mg/dL (0.2-1.0) 04/28/19 03:35 AST 17 U/L (15-37) 04/28/19 03:35 ALT 31 U/L (12-78) 04/28/19 03:35 Alkaline Phosphatase 223 U/L (45-117) H 04/28/19 03:35 Triglycerides 102 mg/dL (<150) 04/29/19 05:05 Cholesterol 165 mg/dL (<200) 04/29/19 05:05 HDL Cholesterol 69 mg/dL (40-60) H 04/29/19 05:05 Cholesterol/HDL Ratio 2.39 04/29/19 05:05 Lipase 55 U/L (73-393) L 04/28/19 03:35 Home Medications: Clopidogrel Bisulfate [Plavix*] 75 mg PO DAILY 11/13/17 Insulin Aspart [Novolog] 0 unit SQ DAILY 11/13/17 Insulin Degludec [Tresiba Flextouch U-100] 24 unit SQ DAILY 11/13/17 Linagliptin [Tradjenta] 5 mg PO DAILY 11/13/17 Mirtazapine 45 mg PO BEDTIME 11/13/17 Pantoprazole [Protonix Tab*] 40 mg PO DAILY 11/13/17 Trazodone [Desyrel*] 150 mg PO BEDTIME 11/13/17 Gabapentin 300 mg PO TID 04/28/19 Rosuvastatin [Crestor*] 5 mg PO BEDTIME #30 tab 05/01/19 New Medications: Rosuvastatin [Crestor*] 5 mg PO BEDTIME #30 tab Patient Discharge Instructions: Follow up with Speech Therapy within 2-3 days Diet: ADA, honey thickened liquids and pureed diet Activity: Ad sandi Time spent managing pt's care (in minutes): 42
--- OUTSIDE RECORDS SUMMARY | 2019-05-04 20:29 | XMS REPORT ---
:1950 [facility] Address [address] [place] [address] Dr. [address] [place] [id number] Care Team Providers Name Role Phone Unavailable Unavailable Unavailable Problems This patient has no known problems. Allergies, Adverse Reactions, Alerts This patient has no known allergies or adverse reactions. Medications This patient has no known medications.
== END 2019-05-01 17:03 | disposition home or self-care (01) | DRG 638 ==
LOC: ER 03:26 → ERHOLD 06:37 → 3RD-ICU 08:44 → 2ND 04-29 14:40
PROVIDERS: ADMIT Hospitalist; ATTEND Hospitalist
DX: E11.10 Type 2 diabetes mellitus with ketoacidosis without coma (principal); N17.9 Acute kidney failure, unspecified; I12.9 Hypertensive chronic kidney disease with stage 1 through stage 4 chronic kidney disease, or unspecified chronic kidney disease; E11.22 Type 2 diabetes mellitus with diabetic chronic kidney disease; E11.65 Type 2 diabetes mellitus with hyperglycemia; N18.3 Chronic kidney disease, stage 3 (moderate); E78.2 Mixed hyperlipidemia; Z86.73 Personal history of transient ischemic attack (TIA), and cerebral infarction without residual deficits; Z85.819 Personal history of malignant neoplasm of unspecified site of lip, oral cavity, and pharynx; E03.9 Hypothyroidism, unspecified; D63.1 Anemia in chronic kidney disease; R13.10 Dysphagia, unspecified; I48.91 Unspecified atrial fibrillation
CPT/HCPCS: 36415; 70551; 71045; 74230; 80048; 80061; 80076; 81003; 81015; 82010; 82310; 82607; 82746; 82805; 82947; 83690; 83735; 84100; 85025; 87086; 87088; 92526; 92610; 92611; 96361; 96374; 96375; 97110; 97112; 97116; 97161; 97530; 99285; C9113; J1450; J1650; J1815; J2405; J2550; J3010; J7030

== ENCOUNTER 2019-08-23 10:29 | Inpatient (IN) | payer OTHER ==
--- OUTSIDE RECORDS SUMMARY | 2019-08-23 10:31 | XMS REPORT ---
:1950 [facility] Address [address] [place] [address] Dr. Phillips [address] [place] [id number] Care Team Providers Name Role Phone Unavailable Unavailable Unavailable Problems This patient has no known problems. Allergies, Adverse Reactions, Alerts This patient has no known allergies or adverse reactions. Medications This patient has no known medications.
--- NOTE | 2019-08-23 11:04 | ER ---
Nurse's Notes [facility] Name: Scott Mederos Age: 69 yrs Sex: Male : 1950 Arrival Date: 08/23/2019 Time: 10:31 Bed 23 Private MD: Luz Cortez Diagnosis: Type 1 diabetes mellitus;Cellulitis and acute lymphangitis of other parts of limb-ascending lymphangitis;Fever, unspecified;Hypo-osmolality and hyponatremia Presentation: 10:40 Chief complaint: Patient states: "My toe is going to , its turning black like the aj1 one next to it did" State that he first noted his toe turning black "a couple months ago" States that he has an appointment with his underground roof bolter on August 31, states the toe started looking worse in the past could of weeks. Reports small amount of serosanguinous drainage from the toe, denies fever, but states that he has been feeling weaker than normal the past couple days. Coronavirus screen: The patient has NOT traveled to [place] in the past 14 days. Ebola Screen: Patient denies travel to an Ebola-affected area in the 21 days before illness onset. Initial Sepsis Screen: Does the patient meet any 2 criteria? No. Patient's initial sepsis screen is negative. Does the patient have a suspected source of infection? Yes: Skin breakdown/wound. Risk Assessment: Do you want to hurt yourself or someone else? Patient reports no desire to harm self or others. 10:40 Method Of Arrival: Wheelchair aj1 10:40 Acuity: LUIS 3 aj1 Triage Assessment: 10:46 General: Appears in no apparent distress. comfortable, Behavior is calm, cooperative, aj1 appropriate for age. Pain: Denies pain. Historical: - Allergies: 10:46 Acyclovir; aj1 10:46 Demerol; aj1 10:46 Meperidine; aj1 10:46 Vancomycin; aj1 - Home Meds: 10:46 Benadryl Oral [Active]; Colace Oral [Active]; levothyroxine oral [Active]; midodrine aj1 Oral [Active]; Novolog Sub-Q [Active]; Plavix Oral [Active]; Protonix Oral [Active]; rosuvastatin Oral [Active]; - PMHx: 10:46 Diabetes - IDDM; GERD; High Cholesterol; Hypertension; Hypothyroidism; Neck/Throat aj1 Cancer; Renal Disease; - Immunization history:: Adult Immunizations up to date. - Family history:: not pertinent. Screenin:47 Abuse screen: Denies threats or abuse. Denies injuries from another. Nutritional aj1 screening: No deficits noted. Tuberculosis screening: No symptoms or risk factors identified. 14:38 Fall Risk Fall in past 12 months (25 points). Secondary diagnosis (15 points) impaired aj1 mobility, IV access (20 points). Ambulatory Aid- None/Bed Rest/Nurse Assist (0 pts). Gait- Impaired (20 pts.). Mental Status- Overestimates/Forgets Limitations (15 pts.). Total Phoenix Fall Scale indicates High Risk Score (45 or more points). Fall prevention measures have been instituted. Side Rails Up X 2 Placed Close to Nursing Station Frequent Obs/Assessments Occuring Family Present and informed to notify staff if the need to leave the bedside As available patient and family educated on Fall Prevention Program and Strategies. Assessment: 10:47 General: Appears in no apparent distress. comfortable, Behavior is calm, cooperative, aj1 appropriate for age. Pain: Denies pain. Neuro: Level of Consciousness is awake, alert, obeys commands, Oriented to person, place, time, situation. Cardiovascular: Patient's skin is warm and dry. Respiratory: Airway is patent Respiratory effort is even, unlabored, Respiratory pattern is regular, symmetrical. GI: No signs and/or symptoms were reported involving the gastrointestinal system. : No signs and/or symptoms were reported regarding the genitourinary system. EENT: No signs and/or symptoms were reported regarding the EENT system. Derm: Wound noted left third toe. Musculoskeletal: No signs and/or symptoms reported regarding the musculoskeletal system. 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 Circulation, motion, and sensation intact. 11:56 Reassessment: Patient appears in no apparent distress at this time. No changes from aj1 previously documented assessment. Patient and/or family updated on plan of care and expected duration. Pain level reassessed. Patient is alert, oriented x 3, equal unlabored respirations, skin warm/dry/pink. 12:35 Reassessment: Patient appears in no apparent distress at this time. No changes from aj1 previously documented assessment. Patient and/or family updated on plan of care and expected duration. Pain level reassessed. Patient is alert, oriented x 3, equal unlabored respirations, skin warm/dry/pink. 13:35 Reassessment: Patient and/or family updated on plan of care and expected duration. Pain aj1 level reassessed. General: Appears in no apparent distress. comfortable, Behavior is calm, cooperative, appropriate for age. Pain: Denies pain. Neuro: Level of Consciousness is awake, alert, obeys commands, Oriented to person, place, time, situation. Cardiovascular: Patient's skin is warm and dry. Respiratory: Airway is patent Respiratory effort is even, unlabored, Respiratory pattern is regular, symmetrical. Derm: Skin is pale. Musculoskeletal: Circulation, motion, and sensation intact. 13:59 Reassessment: Attempted to call report to 2nd floor, receiving nurse Al is unable to aj1 take report at this time, will call back. 14:18 Reassessment: Patient appears in no apparent distress at this time. No changes from aj1 previously documented assessment. Patient and/or family updated on plan of care and expected duration. Pain level reassessed. Patient is alert, oriented x 3, equal unlabored respirations, skin warm/dry/pink. Vital Signs: 10:40 BP 148 / 82; Pulse 95; Resp 18; Temp 99.2; Pulse Ox 95% on R/A; Weight 72.57 kg (R); aj1 Height 6 ft. 0 in. (182.88 cm) (R); Pain 0/10; 11:56 BP 146 / 59; Pulse 87; Resp 18; Pulse Ox 96% on R/A; aj1 12:36 BP 159 / 61; Pulse 90; Resp 18; Pulse Ox 96% on R/A; aj1 13:30 BP 126 / 66; Pulse 79; Resp 18; Pulse Ox 97% on R/A; aj1 14:18 BP 143 / 75; Pulse 77; Resp 18; Pulse Ox 96% on R/A; aj1 14:37 BP 120 / 63; Pulse 75; Resp 18; Temp 99.6; Pulse Ox 94% on R/A; aj1 10:40 Body Mass Index 21.70 (72.57 kg, 182.88 cm) aj1 ED Course: 10:31 Patient arrived in ED. mr 10:32 Luz Cortez MD is Private Physician. mr 10:34 Marvin Ramos MD is Attending Physician. frankie 10:40 Amanda Ruiz RN is Primary Nurse. aj1 10:43 Triage completed. aj1 10:46 Arm band placed on. aj1 10:47 Patient has correct armband on for positive identification. Bed in low position. Call aj1 light in reach. Side rails up X 1. 10:49 No provider procedures requiring assistance completed. aj1 11:02 Ronak Nava DO is Hospitalizing Provider. frankie 11:53 Initial lab(s) drawn, by ga, sent to lab. Inserted saline lock: 22 gauge in right aj1 antecubital area, using aseptic technique. Blood collected. 11:59 XRAY Chest (1 view) In Process Unspecified. EDMS 11:59 Foot Left 3 View XRAY In Process Unspecified. EDMS 14:37 Report given to ROSANNA Melendez on 2nd floor. aj1 14:37 Patient admitted, IV remains in place. aj1 Administered Medications: 11:50 Drug: Zosyn 3.375 grams Route: IVPB; Infused Over: 60 mins; Site: right antecubital; aj1 12:45 Follow up: IV Status: Completed infusion; IV Intake: 100ml aj1 11:50 Drug: NS 0.9% 1000 ml Route: IV; Rate: 1 bolus; Site: right antecubital; aj1 14:40 Follow up: IV Status: Completed infusion; IV Intake: 1000ml aj1 12:00 Drug: Tetanus-Diphtheria Toxoid Adult 0.5 ml {Rural Route Carrier: [employer]. Exp: aj1 11/28/2020. Lot #: [id number]. } Route: IM; Site: right deltoid; 12:55 Follow up: Response: No adverse reaction aj1 12:55 Drug: Insulin Regular Human 10 units {Co-Signature: ginger (Arely Engle RN).} Route: aj1 Sub-Q; Site: right upper arm; 14:39 Follow up: Response: No adverse reaction aj1 12:56 Drug: Insulin Regular Human 10 units {Co-Signature: ginger (Arely Engle RN).} Route: aj1 IVP; Site: right antecubital; 14:39 Follow up: Response: No adverse reaction aj1 Intake: 12:45 IV: 100ml; Total: 100ml. aj1 14:40 IV: 1000ml; Total: 1100ml. aj1 Outcome: 11:03 Decision to Hospitalize by Provider. frankie 14:39 Admitted to Med/surg accompanied by tech. aj1 14:39 Condition: stable 14:39 Discharge instructions given to patient, family, Instructed on the need for admit, Demonstrated understanding of instructions. 15:09 Patient left the ED. aj1 Signatures: Dispatcher [employer] Amanda Weber RN RN aj1 Marvin Ramos MD MD cha Rivera, Mary mr Irene Williams RN iw Corrections: (The following items were deleted from the chart) 10: 10:40 Chief complaint: Patient states: "My toe is going to , its turning black like aj1 the one next to it did" State that he first noted his toe turning black "a couple months ago" States that he has an appointment with his underground roof bolter on August 31, states the toe started looking worse in the past could of weeks. Reports small amount of serosanguinous drainage from the toe, denies fever, but states that he has been feeling weaker than normal the past couple days aj1 10:49 10:47 Derm: Wound noted left second toe aj1 aj1 10:49 10:47 Musculoskeletal: No signs and/or symptoms reported regarding the musculoskeletal aj1 system. Circulation, motion, and sensation intact. aj1
--- NOTE | 2019-08-23 11:04 | EDPHYS ---
Physician Documentation [facility] Name: Scott Mederos Age: 69 yrs Sex: Male : 1950 Arrival Date: 08/23/2019 Time: 10:31 Bed 23 Private MD: Luz Cortez ED Physician Marvin Ramos HPI: 10:59 This 69 yrs old Male presents to ER via Wheelchair with complaints of frankie Infected Toe. 10:59 The patient presents with decreased range of motion, pain, swelling, tenderness. The frankie complaints affect the lateral aspect of left foot and dorsum of left foot. Context: The problem was sustained at home. Onset: The symptoms/episode began/occurred 1 week(s) ago. Modifying factors: The symptoms are alleviated by nothing. the symptoms are aggravated by movement. Associated signs and symptoms: Pertinent positives: fever, nausea, swelling, warmth. Severity of symptoms: At their worst the symptoms were mild, moderate, in the emergency department the symptoms. Historical: - Allergies: 10:46 Acyclovir; aj1 10:46 Demerol; aj1 10:46 Meperidine; aj1 10:46 Vancomycin; aj1 - Home Meds: 10:46 Benadryl Oral [Active]; Colace Oral [Active]; levothyroxine oral [Active]; midodrine aj1 Oral [Active]; Novolog Sub-Q [Active]; Plavix Oral [Active]; Protonix Oral [Active]; rosuvastatin Oral [Active]; - PMHx: 10:46 Diabetes - IDDM; GERD; High Cholesterol; Hypertension; Hypothyroidism; Neck/Throat aj1 Cancer; Renal Disease; - Immunization history:: Adult Immunizations up to date. - Family history:: not pertinent. ROS: 10:59 Constitutional: Negative for fever, chills, and weight loss, Eyes: Negative for injury, frankie pain, redness, and discharge, ENT: Negative for injury, pain, and discharge, Neck: Negative for injury, pain, and swelling, Cardiovascular: Negative for chest pain, palpitations, and edema, Respiratory: Negative for shortness of breath, cough, wheezing, and pleuritic chest pain, Abdomen/GI: Negative for abdominal pain, nausea, vomiting, diarrhea, and constipation, Back: Negative for injury and pain, : Negative for injury, bleeding, discharge, and swelling, Skin: Negative for injury, rash, and discoloration, Neuro: Negative for headache, weakness, numbness, tingling, and seizure, Psych: Negative for depression, anxiety, suicide ideation, homicidal ideation, and hallucinations, Allergy/Immunology: Negative for hives, rash, and allergies, Endocrine: Negative for neck swelling, polydipsia, polyuria, polyphagia, and marked weight changes, Hematologic/Lymphatic: Negative for swollen nodes, abnormal bleeding, and unusual bruising. 10:59 MS/extremity: Positive for decreased range of motion, pain, swelling, tenderness, of the lateral aspect of left toes, dorsum of left foot and left second toe. Exam: 10:59 Constitutional: This is a well developed, well nourished patient who is awake, alert, frankie and in no acute distress. Head/Face: Normocephalic, atraumatic. Eyes: Pupils equal round and reactive to light, extra-ocular motions intact. Lids and lashes normal. Conjunctiva and sclera are non-icteric and not injected. Cornea within normal limits. Periorbital areas with no swelling, redness, or edema. ENT: Nares patent. No nasal discharge, no septal abnormalities noted. Tympanic membranes are normal and external auditory canals are clear. Oropharynx with no redness, swelling, or masses, exudates, or evidence of obstruction, uvula midline. Mucous membranes moist. Neck: Trachea midline, no thyromegaly or masses palpated, and no cervical lymphadenopathy. Supple, full range of motion without nuchal rigidity, or vertebral point tenderness. No Meningismus. Chest/axilla: Normal chest wall appearance and motion. Nontender with no deformity. No lesions are appreciated. Cardiovascular: Regular rate and rhythm with a normal S1 and S2. No gallops, murmurs, or rubs. Normal PMI, no JVD. No pulse deficits. Respiratory: Lungs have equal breath sounds bilaterally, clear to auscultation and percussion. No rales, rhonchi or wheezes noted. No increased work of breathing, no retractions or nasal flaring. Abdomen/GI: Soft, non-tender, with normal bowel sounds. No distension or tympany. No guarding or rebound. No evidence of tenderness throughout. Back: No spinal tenderness. No costovertebral tenderness. Full range of motion. Male : Normal genitalia with no discharge or lesions. Neuro: Awake and alert, GCS 15, oriented to person, place, time, and situation. Cranial nerves II-XII grossly intact. Motor strength 5/5 in all extremities. Sensory grossly intact. Cerebellar exam normal. Normal gait. Psych: Awake, alert, with orientation to person, place and time. Behavior, mood, and affect are within normal limits. 10:59 Musculoskeletal/extremity: Extremities: ROM: no acute changes, Circulation is intact in all extremities. Sensation intact. DVT Exam: negative Homans' sign noted on exam, no appreciated bluish discoloration, pain, swelling, tenderness, erythema, increased warmth, that is moderate. Vital Signs: 10:40 BP 148 / 82; Pulse 95; Resp 18; Temp 99.2; Pulse Ox 95% on R/A; Weight 72.57 kg (R); aj1 Height 6 ft. 0 in. (182.88 cm) (R); Pain 0/10; 11:56 BP 146 / 59; Pulse 87; Resp 18; Pulse Ox 96% on R/A; aj1 12:36 BP 159 / 61; Pulse 90; Resp 18; Pulse Ox 96% on R/A; aj1 13:30 BP 126 / 66; Pulse 79; Resp 18; Pulse Ox 97% on R/A; aj1 14:18 BP 143 / 75; Pulse 77; Resp 18; Pulse Ox 96% on R/A; aj1 14:37 BP 120 / 63; Pulse 75; Resp 18; Temp 99.6; Pulse Ox 94% on R/A; aj1 10:40 Body Mass Index 21.70 (72.57 kg, 182.88 cm) aj1 MDM: 10:34 Patient medically screened. [facility] 11:02 Data reviewed: vital signs, nurses notes, lab test result(s), EKG, radiologic studies, frankie plain films. 10:58 Order name: Basic Metabolic Panel; Complete Time: 12:25 [facility] 10:58 Order name: CBC with Diff [facility] 10:58 Order name: LFT's; Complete Time: 12:25 [facility] 10:58 Order name: Magnesium; Complete Time: 12:25 [facility] 10:58 Order name: NT PRO-BNP; Complete Time: 12:25 [facility] 10:58 Order name: PT-INR; Complete Time: 12:25 [facility] 10:58 Order name: Troponin (emerg Dept Use Only); Complete Time: 12:25 [facility] 10:58 Order name: Sed Rate [facility] 10:58 Order name: Lactate; Complete Time: 12:25 [facility] 12:05 Order name: Procalcitonin [facility] 12:05 Order name: Blood Culture [facility] 12:49 Order name: CBC Smear Scan [facility] 13:35 Order name: Glucose [facility] 13:45 Order name: Glucose, Ancillary Testing [facility] 10:58 Order name: XRAY Chest (1 view); Complete Time: 12:25 [facility] 10:58 Order name: EKG; Complete Time: 10:59 [facility] 10:58 Order name: Cardiac monitoring; Complete Time: 11:52 [facility] 10:58 Order name: EKG - Nurse/Tech; Complete Time: 12:55 [facility] 10:58 Order name: IV Saline Lock; Complete Time: 11:53 [facility] 10:58 Order name: Labs collected and sent; Complete Time: 11:53 [facility] 10:58 Order name: O2 Per Protocol; Complete Time: 11:03 [facility] 10:58 Order name: O2 Sat Monitoring; Complete Time: 11:03 [facility] 10:58 Order name: Foot Left 3 View XRAY; Complete Time: 12:25 [facility] 10:58 Order name: Wound Care; Complete Time: 12:42 [facility] 14:29 Order name: Glucose Level EDSC Administered Medications: 11:50 Drug: Zosyn 3.375 grams Route: IVPB; Infused Over: 60 mins; Site: right antecubital; aj1 12:45 Follow up: IV Status: Completed infusion; IV Intake: 100ml aj1 11:50 Drug: NS 0.9% 1000 ml Route: IV; Rate: 1 bolus; Site: right antecubital; aj1 14:40 Follow up: IV Status: Completed infusion; IV Intake: 1000ml aj1 12:00 Drug: Tetanus-Diphtheria Toxoid Adult 0.5 ml {Cell Lead: [employer]. Exp: aj11/28/2020. Lot #: [id number]. } Route: IM; Site: right deltoid; 12:55 Follow up: Response: No adverse reaction aj 12:55 Drug: Insulin Regular Human 10 units {Co-Signature: ginger (Arely Engle RN).} Route: aj1 Sub-Q; Site: right upper arm; 14:39 Follow up: Response: No adverse reaction aj 12:56 Drug: Insulin Regular Human 10 units {Co-Signature: ginger (Arely Engle RN).} Route: aj1 IVP; Site: right antecubital; 14:39 Follow up: Response: No adverse reaction aj Disposition: 08/23/19 11:03 Hospitalization ordered by Ronak Nava for Inpatient Admission. Preliminary diagnosis are Type 1 diabetes mellitus, Cellulitis and acute lymphangitis of other parts of limb - ascending lymphangitis, Fever, unspecified, Hypo-osmolality and hyponatremia. - Bed requested for Telemetry/MedSurg (Inpatient). - Status is Inpatient Admission. aj1 - Condition is Stable. - Problem is new. - Symptoms have improved. Signatures: Dispatcher [employer] EDMS Amanda Ruiz RN RN aj1 Marvin Ramos MD MD cha Botello, Elizabeth eb Irene Williams RN iw Corrections: (The following items were deleted from the chart) 12:32 11:03 Hospitalization Ordered by Ronak Nava DO for Inpatient Admission. Preliminary [facility] diagnosis is Type 1 diabetes mellitus; Cellulitis and acute lymphangitis of other parts of limb - ascending lymphangitis; Fever, unspecified. Bed requested for Telemetry/MedSurg (Inpatient). Status is Inpatient Admission. Condition is Stable. Problem is new. Symptoms have improved. [facility] 12:43 12:32 08/23/2019 11:03 Hospitalization Ordered by Ronak Nava DO for Inpatient eb Admission. Preliminary diagnosis is Type 1 diabetes mellitus; Cellulitis and acute lymphangitis of other parts of limb - ascending lymphangitis; Fever, unspecified; Hypo-osmolality and hyponatremia. Bed requested for Telemetry/MedSurg (Inpatient). Status is Inpatient Admission. Condition is Stable. Problem is new. Symptoms have improved. [facility] 15:09 12:43 08/23/2019 11:03 Hospitalization Ordered by Ronak Nava DO for Inpatient aj1 Admission. Preliminary diagnosis is Type 1 diabetes mellitus; Cellulitis and acute lymphangitis of other parts of limb - ascending lymphangitis; Fever, unspecified; Hypo-osmolality and hyponatremia. Bed requested for Telemetry/MedSurg (Inpatient). Status is Inpatient Admission. Condition is Stable. Problem is new. Symptoms have improved. eb
[2019-08-23 12:00] LABS: Absolute Lymphocytes (CBC) 0.2 K/uL (0.7-4.9); Basophils % 1.2 % (0-1.3); Hematocrit 32.4 % (39.6-49.0); Lymphocytes % 2.1 % (15.3-44.8); MPV 8.1 fL (7.6-11.3)
[2019-08-23 12:01] LABS: Protime INR 0.98
--- NOTE | 2019-08-23 12:10 | P.HP ---
Certification for Inpatient Patient admitted to: Inpatient With expected LOS: >2 Midnights Patient will require the following post-hospital care: Senior Care Practitioner: I am a practitioner with admitting privileges, knowledge of patient current condition, hospital course, and medical plan of care. Services: Services provided to patient in accordance with Admission requirements found in Title 42 Section 412.3 of the Code of Federal Regulations Patient History Date of Service: 08/23/19 Primary Care Provider: Dr. Cortez Reason for admission: Left 3rd toe infection History of Present Illness: 69-year-old male with history of diabetes mellitus type 2, peripheral vascular disease, orthostatic hypotension on midodrine, hypothyroidism, and prior history of fall osteomyelitis. Patient presented to the hospital due to worsening left 3rd toe infection. Patient denies fever, chills. Patient has been doctoring with topical antibiotic. Patient usually sees Podiatry but it is been quite sometime since the last visit. Patient denies any fever, chills. patient denies any chest pain or shortness of breath. In the ER patient was evaluated. In the ER patient vital signs stable. CBC BMP pending at this time. On evaluation patient had dry necrotic inflammation to the left 3rd toe. This was very suspicious of osteomyelitis. X-ray pending. Patient admitted for further treatment. When I saw the patient ER, he appeared stable. Patient appears malnourished. at bedside. Patient with prior history of left 1st and 2nd amputation from osteomyelitis. Patient with peripheral vascular disease. reports he has had a stent to the left lower extremity. Allergies acyclovir Adverse Reaction (Verified 11/13/17 09:16) acute renal injury vancomycin Adverse Reaction (Verified 11/13/17 09:16) acute kidney injury Home medications list reviewed: Yes Home Medications: Clopidogrel Bisulfate [Plavix*] 75 mg PO DAILY 11/13/17 Insulin Aspart [Novolog] 0 unit SQ DAILY 11/13/17 Insulin Degludec [Tresiba Flextouch U-100] 24 unit SQ DAILY 11/13/17 Linagliptin [Tradjenta] 5 mg PO DAILY 11/13/17 Mirtazapine 45 mg PO BEDTIME 11/13/17 Pantoprazole [Protonix Tab*] 40 mg PO DAILY 11/13/17 Trazodone [Desyrel*] 150 mg PO BEDTIME 05/22/18 Gabapentin 300 mg PO TID 04/28/19 Rosuvastatin [Crestor*] 5 mg PO BEDTIME #30 tab 05/01/19 - Past Medical/Surgical History Diabetic: Yes -: Hx Throat CA -: HTN -: Diabetes mellitus type 2 [id number] -: GERD -: Hypothyroidism -: Hyperlipidemia -: Peripheral vascular disease -: History of osteomyelitis with amputation -: Chronic renal disease -: Former tobacco use -: bilateral cataract removal -: 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, 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 -: Arterial Stent to the left lower extremity Psychosocial/ Personal History: ; - Family History Father -: Heart disease Mother -: Hypertension Brother -: Hypertension Sister -: Hypertension, Stroke - Social History Smoking Status: Former smoker Alcohol use: No CD- Drugs: No Caffeine use: Yes Place of Residence: Home Review of Systems General: As per HPI Eyes: Unremarkable ENT: Unremarkable Respiratory: Unremarkable Cardiovascular: Unremarkable Gastrointestinal: Unremarkable Genitourinary: Unremarkable Musculoskeletal: As per HPI Integumentary: As per HPI (Patient also has erythema and chronic ulcer to the left 3rd digit of the hand. Left 3rd toe with necrosis and inflammation.) Neurological: Unremarkable Lymphatics: Unremarkable Physical Examination - Physical Exam General: Alert, In no apparent distress, Oriented x3, Cooperative HEENT: Atraumatic, Normocephalic, Other (Dry mucous membranes), EOMI Neck: Supple Respiratory: Clear to auscultation bilaterally, Normal air movement Cardiovascular: Normal pulses, Regular rate/rhythm Gastrointestinal: Normal bowel sounds, Soft and benign, Non-distended, No masses , No rebound, No guarding Musculoskeletal: Other (Necrosis, erythema and inflammation noted to the left 3rd toe. Suspicious for osteomyelitis/dry gangrene. Previous surgical amputation changes noted to the left 1st and 2nd digit.) Assessment and Plan - Advance Directives Does patient have a Living Will: No Does patient have a Durable POA for Healthcare: No
[2019-08-23] MEDS ORDERED: NA CHLORIDE 0.9% 1,000 ML ONE (12:12)
[2019-08-23] MEDS ORDERED: TETANUS & DIPHTHERIA TOX,ADULT 0.5 ML VIAL ONE (12:13)
[2019-08-23] MEDS ORDERED: PIPER/TAZO/NS 3.375gm 3.375 GM/100 ML BAG ONE (12:13)
--- NOTE | 2019-08-23 12:17 | RAD REPORT ---
EXAM DESCRIPTION: RAD - Foot Left 3 View - 08/23/2019 11:59 am CLINICAL HISTORY: PAIN COMPARISON: Foot Left 2 View dated 02/15/2017; Foot Left 3 View dated 01/08/2017 FINDINGS: Evidence of prior amputation of the first and second toe noted. Mild soft tissue swelling affects the third toe. Vascular calcification evident. There is no radiographic finding of osteomyeli tis seen at this time.
--- NOTE | 2019-08-23 12:17 | RAD REPORT ---
EXAM DESCRIPTION: RAD - Chest Single View - 08/23/2019 11:59 am CLINICAL HISTORY: COUGH Chest pain. COMPARISON: <Comparisons> FINDINGS: Portable technique limits examination quality. The lungs are grossly clear. The heart is normal in size. No displaced fractures. IMPRESSION: No acute intrathoracic process suspected.
[2019-08-23 12:18] LABS: ALT/SGPT 18 U/L (12-78); AST/SGOT 20 U/L (15-37); Albumin 3.1 g/dL (3.4-5.0); Alkaline Phosphatase 122 U/L (45-117); BUN Blood Urea Nitrogen 25 mg/dL (7-18); Bicarbonate 27 mmol/L (21-32); Bilirubin Direct 0.3 mg/dL (0-0.2); Bilirubin Total 0.6 mg/dL (0.2-1.0); Potassium 4.7 mmol/L (3.5-5.1); Sodium Level 124 mmol/L (136-145)
[2019-08-23 12:19] LABS: Glucose Level 532 mg/dL (74-106); Magnesium 1.8 mg/dL (1.8-2.4); NT PRO-BNP 2700 pg/mL (<125); Troponin (Emerg Dept Use Only) < 0.02 ng/mL (0.0-0.045)
--- NOTE | 2019-08-23 12:23 | P.HP ---
Certification for Inpatient Patient admitted to: Inpatient With expected LOS: >2 Midnights Patient will require the following post-hospital care: None Practitioner: I am a practitioner with admitting privileges, knowledge of patient current condition, hospital course, and medical plan of care. Services: Services provided to patient in accordance with Admission requirements found in Title 42 Section 412.3 of the Code of Federal Regulations Patient History Date of Service: 08/23/19 Primary Care Provider: Dr. Cortez Reason for admission: Left toe infection History of Present Illness: 69-year-old male with history of peripheral vascular disease, prior osteomyelitis, diabetes, orthostatics hypotension on midodrine and hypothyroidism. Patient presented to the emergency room with worsening left 3rd toe infection. Patient has been taking care of it by himself. He has been applying topical medication. It is not improved. Patient denies any fever, chills. No significant exudate noted to the area. Patient denies any chest pain, shortness of breath. 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 Patient with history of amputation of the 1st and 2nd digit on the left foot. In the ER vital signs stable. CBC, BMP pending. X-ray pain in his time. Evidence of severe left 3rd toe infection likely dry gangrene/osteomyelitis suspected. Patient admitted for admission and treatment. When I saw the patient ER, there was significant evidence of infection to the left 3rd toe. Suspect dry gangrene with osteomyelitis. Patient with history of diabetes and prior amputation. Patient stable at this time. Allergies acyclovir Adverse Reaction (Verified 11/13/17 09:16) acute renal injury vancomycin Adverse Reaction (Verified 11/13/17 09:16) acute kidney injury Home medications list reviewed: Yes Home Medications: Clopidogrel Bisulfate [Plavix*] 75 mg PO DAILY 11/13/17 Insulin Aspart [Novolog] 0 unit SQ DAILY 11/13/17 Insulin Degludec [Tresiba Flextouch U-100] 24 unit SQ DAILY 11/13/17 Linagliptin [Tradjenta] 5 mg PO DAILY 11/13/17 Mirtazapine 45 mg PO BEDTIME 11/13/17 Pantoprazole [Protonix Tab*] 40 mg PO DAILY 11/13/17 Trazodone [Desyrel*] 150 mg PO BEDTIME 05/22/18 Gabapentin 300 mg PO TID 04/28/19 Rosuvastatin [Crestor*] 5 mg PO BEDTIME #30 tab 05/01/19 - Past Medical/Surgical History Diabetic: Yes -: Hx Throat CA -: HTN -: Diabetes mellitus type 2 non-insulin dependent -: GERD -: Hypothyroidism -: Hyperlipidemia -: Peripheral vascular disease, prior arterial stent -: Former tobacco use -: Chronic renal disease -: bilateral cataract removal -: amputation of left great toe -: Arterial stent to the left lower extremity Psychosocial/ Personal History: - Family History Father -: Heart disease Mother -: Hypertension Brother -: Hypertension Sister -: Hypertension, Stroke - Social History Smoking Status: Former smoker Alcohol use: No CD- Drugs: No Caffeine use: Yes Place of Residence: Home Review of Systems General: As per HPI Eyes: Unremarkable ENT: Unremarkable Respiratory: Unremarkable Cardiovascular: Unremarkable Gastrointestinal: Unremarkable Genitourinary: Unremarkable Musculoskeletal: As per HPI Integumentary: As per HPI Neurological: Unremarkable Lymphatics: Unremarkable Physical Examination - Physical Exam General: Alert, In no apparent distress, Oriented x3, Cooperative HEENT: Atraumatic, Other (Dry mucous membranes), EOMI Neck: Supple Respiratory: Clear to auscultation bilaterally, Normal air movement Cardiovascular: Normal pulses, Regular rate/rhythm Gastrointestinal: Normal bowel sounds, Soft and benign, Non-distended, No tenderness, No masses, No rebound, No guarding Musculoskeletal: Other (Erythema, necrosis to the left 3rd toe. Suspect osteomyelitis/dry gangrene. Patient with prior history of left 1st and 2nd digits on the left foot.) Integumentary: Other (Paronychia noted to the left 3rd finger. Inflammation and chronic ulcer noted) Neurological: Normal speech, Normal strength at 5/5 x4 extr, Normal tone, Normal affect Lymphatics: No axilla or inguinal lymphadenopathy - Studies Laboratory Data (last 24 hrs) 08/23/19 11:50: PT 11.6, INR 0.98 08/23/19 11:50: WBC 10.9, Hgb 10.9 L, Hct 32.4 L, Plt Count 209 Assessment and Plan - Plan Impression: Left 3rd toe cellulitis suspect osteomyelitis/dry gangrene Peripheral vascular disease Diabetes mellitus type 2 non-insulin dependent Orthostatic hypotension on midodrine Chronic renal disease Hypothyroidism Plan: Left 3rd toe cellulitis suspect osteomyelitis/dry gangrene: Patient will be admitted for further evaluation and treatment. Await CBC, BMP, pro calcitonin. Will start IV cefepime as the patient is allergic to vancomycin. Will discuss with surgery. Anticipate need for amputation. Will keep the patient NPO up at midnight. Pharmacy to monitor adjust medication. Continue medication for pain. Will provide DVT prophylaxis. Case discussed with his recyclable products sorter and he is okay to have surgery further address and treat this. Patient with prior history of peripheral vascular disease and stent placement. Anticipate improvement over the next 3-5 days. Patient may require skilled placement. Peripheral vascular disease: Will hold Plavix in preparation for surgery. Will provide DVT prophylaxis. Diabetes mellitus type 2 non-insulin dependent: Will monitor Accu-Cheks. Will provide sliding scale. Will need to obtain home medication. Orthostatic hypotension on midodrine: Continue with midodrine to maintain blood pressure. Will start IV fluids. Chronic renal disease: Await lab findings. Patient appears dehydrated. Will start IV fluids per electrolyte protocol in place. Will consider nephrology consultation. Hypothyroidism: Need to obtain and restart home medication. Will check tsh. Discharge Plan: Other (retirement placement) Plan to discharge in: Greater than 2 days - Advance Directives Does patient have a Living Will: No Does patient have a Durable POA for Healthcare: No - Code Status/Comfort Care Code Status Assessed: Yes (Patient is full code) Time Spent Managing Pts Care (In Minutes): 55
[2019-08-23 12:48] LABS: Blood Morphology Comment NOT SEEN (NOT SEEN); Platelet Estimate ADEQ; Urine White Blood Cell Casts OK
[2019-08-23] MEDS ORDERED: INSULIN -REGULAR HUMAN 50 UNIT/0.5 ML ML ONE (12:52)
[2019-08-23] MEDS ORDERED: GABAPENTIN 300 MG CAP PO PRN (14:56)
[2019-08-23] MEDS ORDERED: GLUCAGON 1 MG/VIAL IM PRN (14:56)
[2019-08-23] MEDS ORDERED: ONDANSETRON 4 MG/2 ML VIAL IV PRN (14:56)
[2019-08-23] MEDS ORDERED: TRAMADOL HCL 50 MG TAB PO PRN (14:56)
[2019-08-23] MEDS ORDERED: D50W 25 GM/50 ML SYRINGE/VIAL IV PRN (14:56)
[2019-08-23] MEDS ORDERED: ACETAMINOPHEN 500 MG TAB PO PRN (14:56)
[2019-08-23] MEDS ORDERED: HYDROCODONE/APAP 7.5/325 MG TAB PO PRN (14:56)
[2019-08-23] MEDS ORDERED: TRAZODONE 50 MG TABLET PO PRN (14:56)
[2019-08-23 15:07] VITALS: BMI 22.3
[2019-08-23] MEDS: NA CHLORIDE 0.9% 1,000 ML IV SCH (15:36)
[2019-08-23] MEDS: INSULIN GLARGINE 100 UNITS/ML SQ SCH ×2 (15:37→20:48)
[2019-08-23] MEDS: ENOXAPARIN 40 MG/0.4 ML SQ SCH (15:37)
[2019-08-23] MEDS: MIDODRINE HCL 5 MG TABLET PO SCH ×2 (15:37→20:58)
--- NOTE | 2019-08-23 16:44 | CON ---
Date of Consultation: 08/23/2019 Brief History Of Present Illness: Patient is a 69-year-old male with a history of peripher al vascular disease; prior osteomyelitis; diabetes; orthostatic hypotension, on midodrine; with a his tory of hypothyroidism, who presents to the emergency room with worsening redness and discoloration o f the 3rd toe of the left foot. He has been taking care by Dr. Marti, who has been managing him and done previous amputations of the prior 2 toes of the same foot 1st toe and 2nd toe. Dr. Marti unfort unately is unavailable and [place] and as such, they have been con sulted to see the patient with the above-stated complaints. Past Medical History: Significant for throat cancer; hypertension; diabetes; GERD; hypothyroidism; h yperlipidemia; peripheral vascular disease, status post arterial stent; chronic renal disease; bilate ral cataract surgery. Past Surgical History: Includes arterial stent to the left lower extremity, amputation of left great toe, bilateral cataract surgery. Social History: He is a former smoker. Denies recreational drug use. Home Medications: Include Plavix, Tresiba, NovoLog, Tradjenta, mirtazapine, Protonix, Desyrel, gabap entin, Crestor. Family History: Reviewed and noncontributory. Allergies: TO ACYCLOVIR AND VANCOMYCIN. Review of Systems: Ten-point review of systems other than HPI, denies. Physical Examination: General: At the time of my examination, he is awake, alert, and oriented. Psychiatric: Appropriately conversive. HEENT: Normocephalic. Sclerae icteric. Mucous membranes are moist. Oropharynx clear. Neck: Supple. No JVD. Chest: Normal expansion and excursion. Cardiovascular: Regular rate and rhythm. Pulmonary: Clear to auscultation bilaterally. Abdomen: Soft. Extremities: Focused examination of the left lower extremity has 2 missing toes, #1 and 2 on the lef t foot and a 3rd dry gangrenous toe with cellulitic changes extending to the foot. This toe has open wounds and is weeping. Laboratory Exam: Currently, his laboratory exam reveals a white blood cell count 10.9, hemoglobin 10 .9, hematocrit 32.4, platelet count is 209, neutrophils are 92%. His PT 11.6, INR 0.98. Sodium is 1 24, potassium 4.7, chloride is 85, carbon dioxide 27, BUN 25, creatinine 1.8, glucose is 532. Lactic acid 1.6, total bilirubin 0.6, direct component 0.3, AST 20, ALT 18, alkaline phosphatase 122. ProB UNDERCOVER OPERATOR 2700. Procalcitonin is currently pending. He had imaging performed, which included a foot x-ray and a chest x-ray. Foot x-ray was officially read as evidence of prior amputation of the 1st and 2nd toes, mild soft tissue swelling affects the 3rd toe. Vascular calcifications evident. There are no radiographic findings of osteomyelitis seen at this time. Chest x-ray was officially read as no acu te intrathoracic process. Assessment And Plan: This is a 69-year-old male, who comes in with multiple medical problems as desc ribed and necrotic 3rd toe of the left foot. 1.IV fluid hydration. 2.Medical management. 3.Antibiotic coverage. 4.Electrolyte correction/correction of hyperglycemia prior to surgical intervention as such. 5.I have explained the risks, benefits, and alternatives of an amputation of the 3rd toe of this lef t foot including but not limited to bleeding, infection, damage to surrounding tissue, need further o peration and procedure. Patient agrees to proceed as indicated. Thank you for this interesting consult. TANESHA/JERONIMO Voice ID: [id number] Report ID: [id number]
[2019-08-23] MEDS: INSULIN -REGULAR HUMAN 50 UNIT/0.5 ML ML SQ SCH ×2 (16:57→20:48)
[2019-08-23] MEDS ORDERED: MAGNESIUM SULFATE 1 gm IVPB 1 GM/100 ML BAG IV ONE (18:00)
[2019-08-23 22:47] LABS: Potassium 3.7 mmol/L (3.5-5.1)
--- NOTE | 2019-08-24 00:21 | CON ---
Date of Consultation: 08/23/2019 Chief Complaint: Acute on chronic kidney injury. The patient has multiple medical problems including history of diabetes mellitus , peripheral vascular disease, hypertension, and chronic kidney disease stage 3. Patient presented to the hospital because of diabetic foot infection and gangrene. Patient has history of chronic kidney disease stage 3. On previous occasion, a routine blood work done showed elevated BUN, creatinine. Back in April 2019, BUN was up to 39 and creatinine level was 2.14. Subsequently, renal function has improved to baseline. Patient did not require dialysis. He has history of acute kidney injury back in April and subsequently a creatinine level improved to 1.12. On admission to the hospital today, creatinine is 1.89 and BUN is 25. The patient was found to have hyponatremia, sodium level 124, although blood glucose was up to 532. Patient has uncontrolled diabetes and was started on insulin. Hemoglobin A1c was checked serially in June was up to 10.9. Patient likely has diabetic kidney disease and stage 3 chronic kidney disease. Patient is a 69-year-old man with peripheral vascular disease, prior history of osteomyelitis, diabetes mellitus, diabetic foot infection, orthostatic hypotension on midodrine, hypothyroid. He presented to emergency room because of worsening of the left third toe infection. Patient was applying topical medication in area without any improvement. He denies fever, chills, and he denies significant discharge from the toe. Review of Systems: Constitutional: Denies fever, chills. Eyes: Denies vision changes. Ears, Nose, mouth and Throat: Denies sore throat, earache. Respiratory: Denies PND, orthopnea. Cardiovascular: Denies chest pain, palpitation. GI: Denies nausea, vomiting. : Denies dysuria, hematuria. Musculoskeletal: Denies muscle aches or joint swelling. All other systems reviewed and all are negative. Past Medical History: Diabetes mellitus, hypertension, hyperlipidemia, history of throat cancer, GERD, hypothyroidism, former tobacco usage, chronic renal disease stage 3, diabetic kidney disease, amputation of the left great toe, arterial stent to left lower extremity. Family History: Father with heart disease. Mother, hypertension. Brother, hypertension. Sister, hypertension and stroke. Social History: Denies tobacco, alcohol, or illicit drugs. Physical Examination: General: The patient is awake, alert, follows commands. Eyes: Anicteric sclerae, EOMI. Ears, Nose, mouth and Throat: Oral mucosa moist. No pallor. Neck: Supple. No bruits. Lungs: Diminished breath sounds at bases. Heart: S1, S2. No pericardial friction rub. Abdomen: Soft, benign, nontender. Extremities: Slight edema. No oozing Neurologic: no tremor CN intact Impression And Plan: 1. Acute kidney injury secondary to uncontrolled diabetes and mild volume depletion. Continue IV fluids for hydration. 2. Hyponatremia. Continue normal saline. The patient has volume depletion and uncontrolled diabetes. 3. Monitor potassium level closely. Adjust fluids accordingly. 4. Hypertension. Patient currently is on midodrine for blood pressure support. Monitor blood pressure and at this point, cannot take an inhibitor for diabetic kidney disease due to fact that there is ongoing acute kidney injury. 5. Gangrene. Patient will have a toe amputation if scheduled to have surgery tomorrow. JULIO CESAR/JERONIMO Voice ID: [id number] Report ID: [id number] MTDD
[2019-08-24 05:56] LABS: Absolute Lymphocytes (CBC) 0.7 K/uL (0.7-4.9); Basophils % 0.5 % (0-1.3); Hematocrit 28.2 % (39.6-49.0); Lymphocytes % 6.1 % (15.3-44.8); MPV 7.8 fL (7.6-11.3); RBC Red Blood Cell Count 3.03 M/uL (4.33-5.43)
--- NOTE | 2019-08-24 05:58 | EKG ---
Test Date: 2019-08-23 Test Time: 12:20:25 Negative Notcher: ELMAT MEASUREMENT RESULTS: Intervals: Rate: 84 ND: QRSD: 76 QT: 366 QTc: 432 [place]: P: 49 ND: QRS: 30 T: 24 INTERPRETIVE STATEMENTS: nsr...normal ecg Compared to ECG 11/13/2017 09:40:21 no chg Electronically Signed On 08-24-19 05:57:27 ROTATING EQUIPMENT SPECIALIST by Scout Arrieta
[2019-08-24 06:22] LABS: Magnesium 2.2 mg/dL (1.8-2.4); Potassium 3.5 mmol/L (3.5-5.1)
[2019-08-24 06:23] LABS: Thyroid Stimulating Hormone 7.11 uIU/mL (0.360-3.740)
[2019-08-24 06:46] LABS: Urine Appearance CLEAR; Urine Bilirubin NEGATIVE (NEG); Urine Blood NEGATIVE (NEG); Urine Color YELLOW; Urine Glucose 2+ (NEG); Urine Protein 1+ (NEG)
[2019-08-24] MEDS: INSULIN -REGULAR HUMAN 50 UNIT/0.5 ML ML SQ SCH ×4 (07:30→21:52)
[2019-08-24] MEDS: PANTOPRAZOLE 40MG TABLET PO SCH (07:30)
[2019-08-24 08:16] LABS: Urine Microscopic Reflex ORDER UMIC
[2019-08-24] MEDS: ENOXAPARIN 40 MG/0.4 ML SQ SCH (09:00)
[2019-08-24] MEDS: GABAPENTIN 300 MG CAP PO SCH ×3 (09:00→20:55)
[2019-08-24] MEDS: MIDODRINE HCL 5 MG TABLET PO SCH ×3 (09:00→20:56)
[2019-08-24 09:10] LABS: Urine Bacteria <20 /HPF (NONE SEEN); Urine RBC <5 /HPF (NONE SEEN)
[2019-08-24 09:11] LABS: Urine Culture Reflex Order NOT NEEDED
[2019-08-24] MEDS: ASPIRIN EC 81 MG TAB PO SCH (09:35)
[2019-08-24] MEDS: NA CHLORIDE 0.9% 1,000 ML IV SCH ×2 (10:15→21:51)
[2019-08-24] MEDS ORDERED: FENTANYL CITR 100 MCG/2 ML ONE (11:14)
[2019-08-24] MEDS ORDERED: propofoL 200 MG/20 ML VIAL IV ONE (11:14)
[2019-08-24] MEDS: BUPIVACA 0.5%/EPI 0.0005%/PF 30 ML VIAL ONE ×2 (11:35→11:37)
--- NOTE | 2019-08-24 12:02 | P.OP ---
Preoperative diagnosis: LEFT foot 3rd Toe Gangrene Postoperative diagnosis: LEFT foot 3rd Toe Gangrene Primary procedure: Amputation of LEFT foot 3rd Toe Anesthesia: MAC + Local Estimated blood loss: <3cc Specimen: Toe and tissue Findings: LEFT foot 3rd Toe Gangrene Complications: None Transferred to: Recovery Room Condition: Good
--- NOTE | 2019-08-24 14:05 | P.PN ---
Subjective Date of Service: 08/24/19 Primary Care Provider: Dr. Cortez Chief Complaint: Left toe infection Subjective: Other (Patient did well Overnite. Patient to have amputation today. ) Physical Examination - Vital Signs Temperature: 99 F Blood Pressure: 131/67 Pulse: 81 Respirations: 16 Pulse Ox (%): 91 - Physical Exam General: Alert, Cooperative HEENT: Atraumatic Neck: Supple Respiratory: Clear to auscultation bilaterally, Normal air movement Cardiovascular: Normal pulses, Regular rate/rhythm Gastrointestinal: Normal bowel sounds, Non-distended, No masses, No rebound, No guarding Integumentary: Other (No changes to left foot) Neurological: Normal speech, Normal strength at 5/5 x4 extr, Normal tone - Studies Medications List Reviewed: Yes Assessment & Plan Discharge Plan: Home Plan to discharge in: 48 Hours Physician Review Additional Text: Impression: Left 3rd toe cellulitis suspect osteomyelitis/dry gangrene Peripheral vascular disease Diabetes mellitus type 2 non-insulin dependent Orthostatic hypotension on midodrine Acute on Chronic renal disease Hypothyroidism Diabetic neuropathy Depression Plan: Left 3rd toe cellulitis suspect osteomyelitis/dry gangrene: Patient continues on IV cefepime. Case discussed with surgery. Amputation is planned today. Will provide medication for pain. Will continue with DVT prophylaxis after surgery. Patient with history of peripheral vascular disease and stent placement. Patient will require cardiology evaluation as an outpatient to further address. Anticipate discharge in the next 48 hr pending clinical improvement and surgical recommendations. Peripheral vascular disease: Will restart Plavix tomorrow. Continue DVT prophylaxis Diabetes mellitus type 2 non-insulin dependent: Will monitor Accu-Cheks. Will provide sliding scale. Will start basal insulin Orthostatic hypotension on midodrine: Continue with midodrine to maintain blood pressure. Continue IV fluids Acute on Chronic renal disease: Continue IV fluids. Renal function improved. Nephrology consulted. Hypothyroidism: Tsh and free T4 abnormal. Will increase thyroid medication. Diabetic neuropathy: Continue medication Depression: Continue medication Time Spent Managing Pts Care (In Minutes): 55
[2019-08-24] MEDS ORDERED: POTASSIUM CL SA 10 MEQ TAB PO ONE (15:00)
[2019-08-24] MEDS ORDERED: CEFEPIME/SWI 1gm 10 ML IVP SCH (15:30)
[2019-08-24] MEDS: CEFEPIME/SWI 1gm 10 ML IVP SCH ×2 (16:35→21:04)
--- NOTE | 2019-08-24 18:58 | OP ---
Date of Procedure: 08/24/2019 Surgeon: Arron Harris MD, Postoperative Diagnosis: Left foot third toe gangrene. Postoperative Diagnosis: Left foot third toe gangrene. Procedure Performed: Amputation of the third toe of the left foot. Anesthesia: MAC plus local with 0.5% Marcaine with epinephrine. Estimated Blood Loss: Less than 3 cc. Specimen: Toe and tissue. Findings: Third toe of the left foot gangrenous changes. Complications: None. Transferred to recovery room in good condition. Procedure In Detail: After informed consent was obtained, patient was brought to the operating room, prepped and draped in the usual sterile fashion. After adequate anesthesia achieved, a block was pe rformed in the area of the third toe of the left foot. I then created a flap based on the plantar ti ssue circumferentially cutting through the soft tissue of the third toe of the left foot with a 15-bl yasmin. At this point, I dissected down using electrocautery down to the level of the bone and pushing the tissues back with a periosteal elevator to the metatarsophalangeal joint. I then amputated the t hird toe to the metatarsophalangeal joint and removed additional debridement tissue, was sent off at this point to allow for a closure over the bone. I then irrigated the area copiously multiple times to completely clear. Electrocautery was used to achieve hemostasis easily in the area and the incisi on was closed using an interrupted 3-0 sutures and a combination of simple and vertical mattress sutu res. It was closed without tension and a sterile dressing was placed over the top. The patient tole rated the procedure without evidence of complication, transferred to PACU in good condition. All counts were correct at end of the case. TK/MODL Voice ID: [id number] Report ID: [id number]
[2019-08-24] MEDS: MIRTAZAPINE 15 MG TAB PO SCH (20:55)
[2019-08-24] MEDS: TRAZODONE 150 MG TAB PO SCH (20:56)
[2019-08-24] MEDS ORDERED: CEFEPIME 1 GM/VIAL IV SCH (21:00)
[2019-08-24] MEDS ORDERED: INSULIN GLARGINE 100 UNITS/ML SQ SCH (21:00)
--- NOTE | 2019-08-24 23:08 | RAD REPORT ---
EXAM DESCRIPTION: US - Renal Ultrasound-Complete - 08/24/2019 8:56 pm CLINICAL HISTORY: ckd/arf Flank pain COMPARISON: Abdomen Exam Limited dated 11/18/2015 FINDINGS: Both kidneys are normal in size, shape and echotexture. The right kidney measures 10.0 x 5.5 x 5.0 cm. No hydronephrosis, focal mass or perinephric fluid. The left kidney measures 9.7 x 5.6 x 4.9 cm. No hydronephrosis, focal mass or perinephric fluid. The urinary bladder is incompletely distended without gross abnormality seen. IMPRESSION: Unremarkable renal sonogram.
--- NOTE | 2019-08-24 23:27 | PN ---
Date of Progress Note: 08/24/2019 Chief Complaint: Acute on chronic kidney injury due to prerenal azotemia, triggered by renal hypoperfusion secondary to uncontrolled diabetes. History Of Present Illness: Patient presented to the hospital because of gangrene and diabetic foot infection. He underwent toe amputation. Patient has history of chronic kidney disease stage 3, baseline creatinine level 1.2. On arrival to the hospital, creatinine was 1.89, BUN 25. Patient had hyponatremia, sodium level was 124, although blood glucose was elevated up to 532. Patient was started on IV fluids for mild hydration and to control renal hypoperfusion to treat acute kidney injury. Renal function has improved today. Review of Systems: Denies PND, orthopnea. Physical Examination: Lungs: Clear to auscultation bilaterally. Heart: S1-S2. Abdomen: Soft, benign. Extremities: Minimal edema. Impression And Plan: 1. Acute on chronic kidney injury. Patient has history of orthostatic hypotension. He presented with volume depletion secondary to uncontrolled diabetes. Monitor blood pressure closely. Adjust midodrine as needed. 2. Hyponatremia. Sodium level 133. Glucose improved to 112. Continue normal saline. Monitor electrolytes. Plan is to check TSH level. 3. Diabetes mellitus with renal manifestation, chronic kidney disease stage 3. Avoid nephrotoxic medication. 4. Orthostatic hypotension. Monitor blood pressure closely. Adjust midodrine as needed. I spent total 36 min including 25 min to coordinate care plan. JULIO CESAR/JERONIMO Voice ID: [id number] Report ID: [id number] LINDSEY
[2019-08-25] MEDS: LIOTHYRONINE SOD 5 MCG TAB PO SCH (05:29)
[2019-08-25] MEDS: LEVOTHYROXINE SOD 0.075 MG TAB PO SCH (05:30)
[2019-08-25 05:53] LABS: Absolute Lymphocytes (CBC) 0.8 K/uL (0.7-4.9); Basophils % 0.9 % (0-1.3); Hematocrit 28.3 % (39.6-49.0); Lymphocytes % 8.8 % (15.3-44.8); MPV 7.7 fL (7.6-11.3); RBC Red Blood Cell Count 3.03 M/uL (4.33-5.43)
[2019-08-25] MEDS ORDERED: LEVOTHYROXINE SOD 0.05 MG TABLET PO SCH ×2 (06:00)
[2019-08-25 06:08] LABS: Magnesium 2.2 mg/dL (1.8-2.4); Potassium 3.8 mmol/L (3.5-5.1)
[2019-08-25] MEDS: INSULIN -REGULAR HUMAN 50 UNIT/0.5 ML ML SQ SCH ×4 (07:30→20:37)
[2019-08-25] MEDS: GABAPENTIN 300 MG CAP PO SCH ×3 (08:29→20:37)
[2019-08-25] MEDS: ENOXAPARIN 40 MG/0.4 ML SQ SCH (08:30)
[2019-08-25] MEDS: CEFEPIME/SWI 1gm 10 ML IVP SCH ×2 (08:30→20:36)
[2019-08-25] MEDS: ASPIRIN EC 81 MG TAB PO SCH (08:30)
[2019-08-25] MEDS: PANTOPRAZOLE 40MG TABLET PO SCH (08:30)
[2019-08-25] MEDS: MIDODRINE HCL 5 MG TABLET PO SCH ×3 (08:32→20:36)
[2019-08-25] MEDS ORDERED: POTASSIUM CL SA 10 MEQ TAB PO ONE (09:00)
--- NOTE | 2019-08-25 09:44 | P.PN ---
Subjective Date of Service: 08/25/19 Primary Care Provider: Dr. Cortez Chief Complaint: Left toe infection Subjective: Improving Physical Examination - Vital Signs Temperature: 97.8 F Blood Pressure: 105/56 Pulse: 72 Respirations: 16 Pulse Ox (%): 93 - Physical Exam General: Alert, In no apparent distress, Cooperative Integumentary: Other (amputation site is clean and dry with sutures in place) - Studies Medications List Reviewed: Yes Assessment And Plan - Current Problems (Diagnosis) (1) Gangrene of toe of left foot Current Visit: Yes Status: Acute Plan: s/p Amputation of 3rd Toe of LEFT foot - doing well - [address] Dr[address] Nava - follow up in 1-2 weeks for suture removal - daily dressing changes Physician Review Additional Text: Impression: Left 3rd toe cellulitis suspect osteomyelitis/dry gangrene Peripheral vascular disease Diabetes mellitus type 2 non-insulin dependent Orthostatic hypotension on midodrine Acute on Chronic renal disease Hypothyroidism Diabetic neuropathy Depression Plan: Left 3rd toe cellulitis suspect osteomyelitis/dry gangrene: Patient continues on IV cefepime. Case discussed with surgery. Amputation is planned today. Will provide medication for pain. Will continue with DVT prophylaxis after surgery. Patient with history of peripheral vascular disease and stent placement. Patient will require cardiology evaluation as an outpatient to further address. Anticipate discharge in the next 48 hr pending clinical improvement and surgical recommendations. Peripheral vascular disease: Will restart Plavix tomorrow. Continue DVT prophylaxis Diabetes mellitus type 2 non-insulin dependent: Will monitor Accu-Cheks. Will provide sliding scale. Will start basal insulin Orthostatic hypotension on midodrine: Continue with midodrine to maintain blood pressure. Continue IV fluids Acute on Chronic renal disease: Continue IV fluids. Renal function improved. Nephrology consulted. Hypothyroidism: Tsh and free T4 abnormal. Will increase thyroid medication. Diabetic neuropathy: Continue medication Depression: Continue medication
--- NOTE | 2019-08-25 15:59 | P.PN ---
Subjective Date of Service: 08/25/19 Primary Care Provider: Dr. Cortez Chief Complaint: Left toe infection Subjective: Other (Patient had amputation yesterday. Patient doing well.) Physical Examination - Vital Signs Temperature: 99 F Blood Pressure: 135/62 Pulse: 72 Respirations: 16 Pulse Ox (%): 94 - Physical Exam General: Alert, In no apparent distress HEENT: Atraumatic Neck: Supple Respiratory: Clear to auscultation bilaterally, Normal air movement Cardiovascular: Normal pulses, Regular rate/rhythm Gastrointestinal: Normal bowel sounds, Soft and benign, Non-distended Integumentary: Other (Bandaged left foot) Neurological: Normal speech, Normal strength at 5/5 x4 extr, Normal tone, Normal affect - Studies Medications List Reviewed: Yes Assessment & Plan Discharge Plan: Other (group home facility) Plan to discharge in: 24 Hours Physician Review Additional Text: Impression: Left 3rd toe cellulitis suspect osteomyelitis/dry gangrene status post amputation of 3rd toe Peripheral vascular disease Diabetes mellitus type 2 non-insulin dependent Orthostatic hypotension on midodrine Acute on Chronic renal disease Hypothyroidism Diabetic neuropathy Depression Plan: Left 3rd toe cellulitis suspect osteomyelitis/dry gangrene status post amputation of 3rd toe: Patient continues was IV antibiotic therapy. Case discussed with surgery. Patient has done well. Continue physical therapy. Discharge planning address with patient and . Will pursue skilled placement at discharge. Patient will require oral antibiotic therapy for 5 more days. Continue wound care per surgery. Anticipate discharge likely tomorrow to skilled facility. Peripheral vascular disease: Restart Plavix. Continue DVT prophylaxis Diabetes mellitus type 2 non-insulin dependent: Will monitor Accu-Cheks. Will provide sliding scale. Continue to adjust basal insulin Orthostatic hypotension on midodrine: Continue with midodrine to maintain blood pressure. Discontinue IV fluids Acute on Chronic renal disease: Discontinue IV fluids. Renal function improved. Nephrology consulted. Hypothyroidism: Medication adjusted Diabetic neuropathy: Continue medication Depression: Continue medication Time Spent Managing Pts Care (In Minutes): 55
[2019-08-25] MEDS: MIRTAZAPINE 15 MG TAB PO SCH (20:36)
[2019-08-25] MEDS: INSULIN GLARGINE 100 UNITS/ML SQ SCH (20:38)
[2019-08-25] MEDS: TRAZODONE 150 MG TAB PO SCH (21:45)
--- NOTE | 2019-08-25 23:02 | PN ---
Date of Progress Note: 08/25/2019 Chief Complaint: Acute on chronic kidney injury secondary to prerenal azotemia triggered by renal perfusion in the setting of uncontrolled diabetes. Subjective: Renal function has improved to baseline. Patient presented to the hospital because of diabetic foot infection with gangrene, underwent toe amputation. Review of Systems: Patient is feeling better. He denies PND or orthopnea. Physical Examination: Lungs: Clear to auscultation bilaterally. Heart: S1-S2. Abdomen: Soft, benign. Extremities: Dressing in place. Assessment And Plan: 1. Acute on chronic kidney injury. Patient has history of orthostatic hypotension. Patient presented with volume depletion. Continue midodrine as needed for blood pressure support. Monitor blood pressure closely. 2. Hyponatremia. Sodium level is improving gradually. Continue normal saline. 3. Plan is to monitor TSH. 4. Diabetes mellitus. Continue insulin. Avoid nephrotoxic medication. 5. Orthostatic hypotension. Continue midodrine. 6. Gangrene of the toe status post amputation. Continue antibiotics. I spent total 36 min including 25 min to coordinate care plan. JULIO CESAR/JERONIMO Voice ID: [id number] Report ID: [id number] LINDSEY
[2019-08-26 05:27] LABS: Absolute Lymphocytes (CBC) 0.7 K/uL (0.7-4.9); Basophils % 0.8 % (0-1.3); Hematocrit 27.3 % (39.6-49.0); Lymphocytes % 8.1 % (15.3-44.8); MPV 7.5 fL (7.6-11.3); RBC Red Blood Cell Count 2.89 M/uL (4.33-5.43)
[2019-08-26 05:42] LABS: Potassium 4.1 mmol/L (3.5-5.1)
[2019-08-26] MEDS: LIOTHYRONINE SOD 5 MCG TAB PO SCH (06:08)
[2019-08-26] MEDS: LEVOTHYROXINE SOD 0.075 MG TAB PO SCH (06:15)
[2019-08-26] MEDS: INSULIN -REGULAR HUMAN 50 UNIT/0.5 ML ML SQ SCH ×4 (07:30→20:58)
--- NOTE | 2019-08-26 09:09 | P.PN ---
Subjective Date of Service: 08/26/19 Primary Care Provider: Dr. Cortez Chief Complaint: Left toe infection Subjective: Improving, Doing well Physical Examination - Vital Signs Temperature: 98.1 F Blood Pressure: 101/51 Pulse: 72 Respirations: 16 Pulse Ox (%): 93 - Physical Exam General: Alert, In no apparent distress, Oriented x3, Cooperative HEENT: Atraumatic Neck: Supple Respiratory: Clear to auscultation bilaterally, Normal air movement Cardiovascular: Normal pulses, Regular rate/rhythm Gastrointestinal: Normal bowel sounds, Soft and benign, Non-distended Integumentary: Other (Bandage to left foot) Neurological: Normal speech, Normal strength at 5/5 x4 extr, Normal tone, Normal affect - Studies Medications List Reviewed: Yes Assessment & Plan Discharge Plan: Other (SNF) Plan to discharge in: 24 Hours Physician Review Additional Text: Impression: Left 3rd toe cellulitis suspect osteomyelitis/dry gangrene status post amputation of 3rd toe Peripheral vascular disease Diabetes mellitus type 2 non-insulin dependent Orthostatic hypotension on midodrine Acute on Chronic renal disease Hypothyroidism Diabetic neuropathy Depression Plan: Left 3rd toe cellulitis suspect osteomyelitis/dry gangrene status post amputation of 3rd toe: Patient continues on IV antibiotic therapy. Case discussed with surgery. Plan of care discussed with patient today and yesterday. Patient now agrees to go to a skilled facility continue rehabilitation. Will discuss with social work therapist. Continue with physical therapy and occupational therapy. Fall precautions in place. Patient will require antibiotic therapy for 5 more days. Will transition to oral medication. Anticipate discharge to skilled facility when ready. Peripheral vascular disease: Continue with medication. Continue DVT prophylaxis Diabetes mellitus type 2 non-insulin dependent: Will monitor Accu-Cheks. Will provide sliding scale. Continue to adjust basal insulin. Orthostatic hypotension on midodrine: Continue with midodrine to maintain blood pressure. IV fluids discontinued yesterday Acute on Chronic renal disease: IV fluids discontinued yesterday. Renal function improved. Nephrology consulted. Hypothyroidism: Medication adjusted Diabetic neuropathy: Continue medication Depression: Continue medication Time Spent Managing Pts Care (In Minutes): 55
[2019-08-26] MEDS: CEFEPIME/SWI 1gm 10 ML IVP SCH ×2 (09:17→20:57)
[2019-08-26] MEDS: MIDODRINE HCL 5 MG TABLET PO SCH ×3 (09:18→20:57)
[2019-08-26] MEDS: PANTOPRAZOLE 40MG TABLET PO SCH (09:18)
[2019-08-26] MEDS: ASPIRIN EC 81 MG TAB PO SCH (09:18)
[2019-08-26] MEDS: CLOPIDOGREL 75 MG TABLET PO SCH (09:18)
[2019-08-26] MEDS: GABAPENTIN 300 MG CAP PO SCH ×3 (09:20→20:57)
[2019-08-26] MEDS: ENOXAPARIN 40 MG/0.4 ML SQ SCH (09:21)
--- NOTE | 2019-08-26 15:03 | PN ---
Date of Progress Note: 08/26/2019 Subjective: The patient was admitted with acute kidney injury secondary to prerenal. Patient recove red very well. Physical Examination: Vital Signs: Blood pressure 101/51, pulse of 72, afebrile. Chest: Clear to auscultation. Heart: S1, S2. Systolic murmur. Abdomen: Soft, nontender. Extremities: Dressing on the foot. Current Medications: The patient on include Tylenol, hydrocodone, cefepime, Lovenox, gabapentin, ins ulin, levothyroxine, mirtazapine, midodrine, tramadol, trazodone. Laboratory Data: Sodium 140, potassium 4.1, bicarb 30, BUN 16, creatinine 1, calcium 8.4, magnesium 2. TSH of 7. Assessment And Plan: 1.Acute kidney injury secondary to prerenal, recovered, resolved. 2.Hypertension, currently hypo with orthostatic. We will continue midodrine. 3.Osteomyelitis, status post amputation. Continue current antibiotic. We will follow up with Radha lloyd. 4.Hypothyroidism. With still elevation on the TSH, levothyroxine has been adjusted. We will follow up with Primary. DAVID/JERONIMO Voice ID: [id number] Report ID: [id number]
[2019-08-26] MEDS: MIRTAZAPINE 15 MG TAB PO SCH (20:57)
[2019-08-26] MEDS: TRAZODONE 150 MG TAB PO SCH (20:57)
[2019-08-26] MEDS: INSULIN GLARGINE 100 UNITS/ML SQ SCH (20:58)
[2019-08-27 05:30] LABS: Absolute Lymphocytes (CBC) 0.8 K/uL (0.7-4.9); Basophils % 0.6 % (0-1.3); Hematocrit 28.2 % (39.6-49.0); MPV 7.5 fL (7.6-11.3); RBC Red Blood Cell Count 3.02 M/uL (4.33-5.43)
[2019-08-27 05:54] LABS: Potassium 4.3 mmol/L (3.5-5.1)
[2019-08-27] MEDS: LEVOTHYROXINE SOD 0.075 MG TAB PO SCH (06:19)
[2019-08-27] MEDS: LIOTHYRONINE SOD 5 MCG TAB PO SCH (06:19)
--- NOTE | 2019-08-27 07:23 | P.PN ---
Subjective Date of Service: 08/27/19 Primary Care Provider: Dr. Cortez Chief Complaint: Left toe infection Subjective: Improving, Doing well Physical Examination - Vital Signs Temperature: 98.5 F Blood Pressure: 145/65 Pulse: 70 Respirations: 16 Pulse Ox (%): 91 - Physical Exam General: Alert, In no apparent distress, Oriented x3, Cooperative HEENT: Atraumatic Neck: Supple Respiratory: Clear to auscultation bilaterally, Normal air movement Cardiovascular: Normal pulses, Regular rate/rhythm Integumentary: Other (Bandage to the left foot noted.) Neurological: Normal speech, Normal strength at 5/5 x4 extr, Normal tone, Normal affect - Studies Medications List Reviewed: Yes Assessment & Plan Discharge Plan: Other (snf facility) Plan to discharge in: 24 Hours Physician Review Additional Text: Impression: Left 3rd toe cellulitis suspect osteomyelitis/dry gangrene status post amputation of 3rd toe Peripheral vascular disease Diabetes mellitus type 2 non-insulin dependent Orthostatic hypotension on midodrine Acute on Chronic renal disease Hypothyroidism Diabetic neuropathy Depression Plan: Left 3rd toe cellulitis suspect osteomyelitis/dry gangrene status post amputation of 3rd toe: Patient has done well. Continue current wound care. Case discussed with surgery. Will discontinue IV antibiotic therapy. Will start on Augmentin for 5 more days. Continue to work with physical therapy. Patient agreeable to going to a skilled facility. Social work working on skilled placement. Anticipate discharge to skilled facility as early as today. Peripheral vascular disease: Continue with medication. Continue DVT prophylaxis Diabetes mellitus type 2 non-insulin dependent: Will monitor Accu-Cheks. Will provide sliding scale. Continue to adjust basal insulin. Orthostatic hypotension on midodrine: Continue with midodrine to maintain blood pressure. Acute on Chronic renal disease: Renal function improved. Nephrology Monitoring patient . Hypothyroidism: Medication adjusted Diabetic neuropathy: Continue medication Depression: Continue medication Time Spent Managing Pts Care (In Minutes): 55
[2019-08-27] MEDS: INSULIN -REGULAR HUMAN 50 UNIT/0.5 ML ML SQ SCH ×2 (07:30→12:00)
[2019-08-27] MEDS: GABAPENTIN 300 MG CAP PO SCH ×2 (08:17→14:28)
[2019-08-27] MEDS: ASPIRIN EC 81 MG TAB PO SCH (08:18)
[2019-08-27] MEDS: PANTOPRAZOLE 40MG TABLET PO SCH (08:18)
[2019-08-27] MEDS: CLOPIDOGREL 75 MG TABLET PO SCH (08:18)
[2019-08-27] MEDS: ENOXAPARIN 40 MG/0.4 ML SQ SCH (08:18)
[2019-08-27] MEDS: MIDODRINE HCL 5 MG TABLET PO SCH ×2 (08:18→14:27)
[2019-08-27] MEDS ORDERED: AMOX/K CLAV 500 MG TAB PO SCH (09:00)
[2019-08-27 09:51] VITALS: O2SAT 94
--- NOTE | 2019-08-27 13:38 | P.DS ---
Admission Date: 08/23/19 Discharge Date: 08/27/19 Primary Care Provider: Dr. Cortez Disposition: ROUTINE DISCHARGE Discharge Condition: GOOD Reason for Admission: Left toe infection Consultations: Surgery-Dr. Harris Procedures: Renal US: FINDINGS: Both kidneys are normal in size, shape and echotexture. The right kidney measures 10.0 x 5.5 x 5.0 cm. No hydronephrosis, focal mass or perinephric fluid. The left kidney measures 9.7 x 5.6 x 4.9 cm. No hydronephrosis, focal mass or perinephric fluid. The urinary bladder is incompletely distended without gross abnormality seen. IMPRESSION: Unremarkable renal sonogram. Foot Xray: FINDINGS: Evidence of prior amputation of the first and second toe noted. Mild soft tissue swelling affects the third toe. Vascular calcification evident. There is no radiographic finding of osteomyelitis seen at this time. Surgery: Left foot 3rd toe gangrene Amputation of left foot 3rd toe Medical Problem List: Left 3rd toe cellulitis/dry gangrene status post amputation of 3rd toe Chronic ulcer to the left 3rd finger Peripheral vascular disease Diabetes mellitus type 2 non-insulin dependent with hyperglycemia Orthostatic hypotension on midodrine Acute on Chronic renal disease Hypothyroidism Diabetic neuropathy Depression GERD Brief History of Present Illness: 69-year-old male with history of peripheral vascular disease, prior osteomyelitis, diabetes, orthostatics hypotension on midodrine and hypothyroidism. Patient presented to the emergency room with worsening left 3rd toe infection. Patient has been taking care of it by himself. He has been applying topical medication. It is not improved. Patient denies any fever, chills. No significant exudate noted to the area. Patient denies any chest pain, shortness of breath. It is been quite sometime since he has followed up with his groundhand. Patient with history of amputation of the 1st and 2nd digit on the left foot. In the ER vital signs stable. CBC, BMP pending. X-ray pain in his time. Evidence of severe left 3rd toe infection likely dry gangrene/osteomyelitis suspected. Patient admitted for admission and treatment. When I saw the patient ER, there was significant evidence of infection to the left 3rd toe. Suspect dry gangrene with osteomyelitis. Patient with history of diabetes and prior amputation. Patient stable at this time. Hospital Course: Patient presented with left 3rd toe cellulitis with dry gangrene. Patient was seen and evaluated by surgery. Surgical intervention was required. Patient had amputation of the left 3rd toe. Patient has done well since surgery. Patient received IV antibiotic therapy during the course of his stay. At discharge he will continue with Augmentin 500 mg twice daily for 5 more days. At discharge he will also continue with gabapentin 600 mg 3 times a day for pain. Patient has been evaluated for skilled placement. Patient has been approved. Patient will be discharged to skilled placement to continue his medical treatment and physical therapy. At discharge patient will continue with current wound care as per surgery. Recommend follow up with surgery at the wound Care Center within 1 week. Fall precautions in place. Patient also has a 3rd finger ulcer that appears chronic. This can be further addressed at wound care. Patient will continue with antibiotics as recommended above. Surgery recommends cardiovascular evaluation for severe PVD of the upper extremity. This could be done as an outpatient. Patient with known peripheral vascular disease. Patient has had stents to the left lower extremity in the past. At discharge he will continue with aspirin 81 mg daily and Plavix 75 mg daily. Patient with diabetes mellitus type 2 insulin dependent. A1c greater than 13.1. At discharge patient will continue with Tresiba 14 units daily and Tradjenta 5 mg daily. Recommend to maintain blood sugars less 140 fasting and less than 200 after meals. Further adjustment can be done by his PCP. Patient with hypothyroidism. Tsh slightly abnormal. At discharge medication has been adjusted. He will continue with levothyroxine 75 mcg daily and Cytomel 5 mcg daily. Recommendation is to recheck tsh and free T4 in 4 weeks to further adjust. This can be done with the help of his PCP. Patient with diabetic neuropathy. At discharge he will continue with Neurontin 600 mg 3 times a day. Patient may continue with folic acid daily. Patient with depression. At discharge he will continue with mirtazapine 45 mg at bedtime along with trazodone 150 mg at bedtime. Patient with GERD. At discharge he will continue with Protonix 40 mg daily. Vital Signs/Physical Exam: Temp Pulse Resp BP Pulse Ox 98.7 F 72 18 147/69 H 94 08/27/19 08:00 08/27/19 08:00 08/27/19 08:00 08/27/19 08:00 08/27/19 08:00 General: Alert, In no apparent distress, Oriented x3, Cooperative HEENT: Atraumatic Neck: Supple Respiratory: Clear to auscultation bilaterally, Normal air movement Cardiovascular: Normal pulses, Regular rate/rhythm Gastrointestinal: Normal bowel sounds, Soft and benign Musculoskeletal: Other (bandage to the left foot. Ulcer to the left 3 finger) Neurological: Normal speech, Normal strength at 5/5 x4 extr, Normal tone, Normal affect Laboratory Data at Discharge: WBC 7.0 K/uL (4.3-10.9) D 08/27/19 05:15 Hgb 9.4 g/dL (13.6-17.9) L 08/27/19 05:15 Hct 28.2 % (39.6-49.0) L 08/27/19 05:15 Plt Count 189 K/uL (152-406) 08/27/19 05:15 PT 11.6 SECONDS (9.5-12.5) 08/23/19 11:50 INR 0.98 08/23/19 11:50 Sodium 138 mmol/L (136-145) 08/27/19 05:15 Potassium 4.3 mmol/L (3.5-5.1) 08/27/19 05:15 BUN 15 mg/dL (7-18) 08/27/19 05:15 Creatinine 1.00 mg/dL (0.55-1.3) 08/27/19 05:15 Glucose 78 mg/dL (74-106) 08/27/19 05:15 Magnesium 2.0 mg/dL (1.8-2.4) 08/27/19 05:15 Total Bilirubin 0.6 mg/dL (0.2-1.0) 08/23/19 11:50 AST 20 U/L (15-37) 08/23/19 11:50 ALT 18 U/L (12-78) 08/23/19 11:50 Alkaline Phosphatase 122 U/L (45-117) H 08/23/19 11:50 Triglycerides 101 mg/dL (<150) 08/24/19 05:33 Cholesterol 161 mg/dL (<200) 08/24/19 05:33 HDL Cholesterol 48 mg/dL (40-60) 08/24/19 05:33 Cholesterol/HDL Ratio 3.35 08/24/19 05:33 Home Medications: Clopidogrel Bisulfate [Plavix*] 75 mg PO DAILY 11/13/17 Insulin Degludec [Tresiba Flextouch U-100] 14 unit SQ DAILY 11/13/17 Linagliptin [Tradjenta] 5 mg PO DAILY 11/13/17 Mirtazapine 45 mg PO BEDTIME 11/13/17 Pantoprazole [Protonix Tab*] 40 mg PO [id number] 11/13/17 Trazodone [Desyrel*] 150 mg PO BEDTIME 11/13/17 Gabapentin 600 mg PO TID 04/28/19 Insulin Aspart [Novolog] 0 unit SQ SEECOM 08/23/19 Liothyronine Sodium [Cytomel] 5 mcg PO [id number] 08/23/19 Midodrine HCl 10 mg PO TID 08/23/19 Amox/Clavulanate [Augmentin 500-125 mg Tab*] 500 mg PO BID #10 tab 08/27/19 Aspirin [Aspirin EC 81 MG] 81 mg PO DAILY #90 tablet. 08/27/19 Folic Acid 1 mg PO DAILY #90 tablet 08/27/19 Levothyroxine [Synthroid*] 0.075 mg PO [id number] #30 tab 08/27/19 New Medications: Amox/Clavulanate [Augmentin 500-125 mg Tab*] 500 mg PO BID #10 tab Aspirin [Aspirin EC 81 MG] 81 mg PO DAILY #90 tablet. Folic Acid 1 mg PO DAILY #90 tablet Levothyroxine [Synthroid*] 0.075 mg PO [id number] #30 tab Patient Discharge Instructions: 1. Patient be transferred to skilled facility to continue treatment and therapy. 2. Patient presented with left 3rd toe cellulitis with dry gangrene. Patient was seen and evaluated by surgery. Surgical intervention was required. Patient had amputation of the left 3rd toe. Patient has done well since surgery. Patient received IV antibiotic therapy during the course of his stay. At discharge he will continue with Augmentin 500 mg twice daily for 5 more days. At discharge he will also continue with gabapentin 600 mg 3 times a day for pain. Patient has been evaluated for skilled placement. Patient has been approved. Patient will be discharged to skilled placement to continue his medical treatment and physical therapy. At discharge patient will continue with current wound care as per surgery. Recommend follow up with surgery at the wound Care Center within [address] Fall precautions in place. 3. Patient also has a 3rd finger ulcer that appears chronic. This can be further addressed at wound care. Patient will continue with antibiotics as recommended above. Surgery recommends cardiovascular evaluation for severe PVD of the upper extremity. This could be done as an outpatient. 4. Patient with known peripheral vascular disease. Patient has had stents to the left lower extremity in the past. At discharge he will continue with aspirin 81 mg daily and Plavix 75 mg daily. 5. Patient with diabetes mellitus type 2 insulin dependent. A1c greater than 13.1. At discharge patient will continue with Tresiba 14 units daily and Tradjenta 5 mg daily. Recommend to maintain blood sugars less 140 fasting and less than 200 after meals. Further adjustment can be done by his PCP. 6. Patient with hypothyroidism. Tsh slightly abnormal. At discharge medication has been adjusted. He will continue with levothyroxine 75 mcg daily and Cytomel 5 mcg daily. Recommendation is to recheck tsh and free T4 in 4 weeks to further adjust. This can be done with the help of his PCP. 7. Patient with diabetic neuropathy. At discharge he will continue with Neurontin 600 mg 3 times a day. Patient may continue with folic acid daily. 8. Patient with depression. At discharge he will continue with mirtazapine 45 mg at bedtime along with trazodone 150 mg at bedtime. 9. Patient with GERD. At discharge he will continue with Protonix 40 mg daily. Diet: ADA Activity: Fall precautions Time spent managing pt's care (in minutes): 55
[2019-08-27 14:26] VITALS: BP 105/53; TEMP 98.4
--- NOTE | 2019-08-27 20:15 | PN ---
Date of Progress Note: 08/27/2019 Subjective: Patient was admitted with osteomyelitis and acute kidney injury. Patient is status post debridement, tolerated well. Objective: Vital Signs: Blood pressure 105/53, pulse of 78, afebrile. Chest: Clear to auscultation. Heart: S1, S2 regular. Abdomen: Soft, nontender. Extremities: Dressing on the foot. Laboratory Data: WBC 7, H and H 9.3/28.2. Sodium 138, potassium 4.3, bicarb 28, BUN 15, creatinine 1, calcium 8.7, magnesium 2. Medications: Current medications the patient is on include Augmentin, cefepime, Lovenox, insulin, le vothyroxine, midodrine, pantoprazole, tramadol. Assessment And Plan: 1.Acute kidney injury secondary to prerenal, recovered, resolved. 2.Hypertension, controlled, optimal. Continue current medication. 3.Osteomyelitis, status post debridement. Continue current antibiotic. We will follow up with the primary. 4.Deconditioning. Continue PT/OT. DAVID/JERONIMO Voice ID: [id number] Report ID: [id number]
== END 2019-08-27 14:59 | DRG 256 ==
LOC: ER 10:29 → ERHOLD 11:54 → 2ND 14:37
PROVIDERS: ADMIT Family Medicine; ATTEND Family Medicine
PROC: 0Y6U0Z0 Detachment at Left 3rd Toe, Complete, Open Approach (ICD-10-PCS; principal; 2019-08-24 10:30)
DX: E11.52 Type 2 diabetes mellitus with diabetic peripheral angiopathy with gangrene (principal); I96 Gangrene, not elsewhere classified; E87.1 Hypo-osmolality and hyponatremia; N17.9 Acute kidney failure, unspecified; M86.9 Osteomyelitis, unspecified; L03.032 Cellulitis of left toe; E11.65 Type 2 diabetes mellitus with hyperglycemia; L98.499 Non-pressure chronic ulcer of skin of other sites with unspecified severity; I95.1 Orthostatic hypotension; I12.9 Hypertensive chronic kidney disease with stage 1 through stage 4 chronic kidney disease, or unspecified chronic kidney disease; E11.22 Type 2 diabetes mellitus with diabetic chronic kidney disease; N18.3 Chronic kidney disease, stage 3 (moderate); E03.9 Hypothyroidism, unspecified; Z85.819 Personal history of malignant neoplasm of unspecified site of lip, oral cavity, and pharynx; E11.69 Type 2 diabetes mellitus with other specified complication; F32.9 Major depressive disorder, single episode, unspecified; K21.9 Gastro-esophageal reflux disease without esophagitis
CPT/HCPCS: 36415; 71045; 76770; 80048; 80061; 80076; 81003; 81015; 82947; 83036; 83605; 83735; 83880; 84145; 84439; 84443; 84484; 85025; 85610; 85652; 87040; 88304; 88311; 90471; 90714; 93005; 96361; 96365; 96372; 96375; 97161; 97530; 99285; J0692; J1650; J1815; J2543; J2704; J3010; J3475; J7030

== ENCOUNTER 2019-11-04 08:03 | Emergency (ER) | payer OTHER ==
--- OUTSIDE RECORDS SUMMARY | 2019-11-04 08:16 | XMS REPORT ---
:1950 Author Organization [facility] t Address [address] [place] [address] Dr. Phillips [address] [place] [id number] Care Team Providers Name Role Phone Unavailable Unavailable Unavailable Problems This patient has no known problems. Allergies, Adverse Reactions, Alerts This patient has no known allergies or adverse reactions. Medications This patient has no known medications.
[2019-11-04 09:20] LABS: Absolute Lymphocytes (CBC) 0.6 K/uL (0.7-4.9); Basophils % 1.5 % (0-1.3); Hematocrit 31.1 % (39.6-49.0); Lymphocytes % 8.3 % (15.3-44.8); MPV 8.7 fL (7.6-11.3)
[2019-11-04 09:21] LABS: Protime INR 0.88
[2019-11-04] MEDS ORDERED: INSULIN -REGULAR HUMAN 50 UNIT/0.5 ML ML ONE (09:21)
--- NOTE | 2019-11-04 09:23 | RAD REPORT ---
EXAM DESCRIPTION: CT - Head Brain Wo Cont - 11/04/2019 8:46 am CLINICAL HISTORY: Confused;Mental status change Headache, drowsiness COMPARISON: Head Brain Wo Cont dated 12/09/2015; Head Brain Wo Cont dated 11/29/2015 TECHNIQUE: All CT scans are performed using dose optimization technique as appropriate and may inclu de automated exposure control or mA/KV adjustment according to patient size. FINDINGS: No intracranial hemorrhage, hydrocephalus or extra-axial fluid collection.Mild generalized brain atrophy is present with mild periventricular and deep white matter chronic microvascular ische kulwinder changes.No areas of brain edema or evidence of midline shift. The paranasal sinuses and mastoids are clear. The calvarium is intact. IMPRESSION: No acute intracranial abnormality.
[2019-11-04 09:39] LABS: ALT/SGPT 13 U/L (12-78); AST/SGOT 8 U/L (15-37); Alkaline Phosphatase 124 U/L (45-117); BUN Blood Urea Nitrogen 42 mg/dL (7-18); Bicarbonate 19 mmol/L (21-32); Bilirubin Direct 0.1 mg/dL (0-0.2); Bilirubin Total 0.5 mg/dL (0.2-1.0); Magnesium 2.4 mg/dL (1.8-2.4); NT PRO-BNP 765 pg/mL (<125); Protein, Total 7.2 g/dL (6.4-8.2); Sodium Level 132 mmol/L (136-145); Troponin (Emerg Dept Use Only) < 0.02 ng/mL (0.0-0.045)
[2019-11-04 09:40] LABS: Glucose Level 457 mg/dL (74-106)
[2019-11-04 10:08] LABS: Blood Gas Oxyhemoglobin 93.2 % (94-97); Blood O2 Saturation 96.1 % (92-98.5)
--- NOTE | 2019-11-04 10:54 | ER ---
Nurse's Notes [facility] Name: Scott Mederos Age: 69 yrs Sex: Male : 1950 Arrival Date: 11/04/2019 Time: 08:05 Bed 8 Private MD: Diagnosis: Nausea;Type 1 diabetes mellitus;Unspecified kidney failure-chronic Presentation: 11/03 08:16 Chief complaint: EMS states: pt was confused this morning, pt thought it was night iw time, also has been nauseated since this morning, BS was reading high, EMS got a 545 reading, took insulin at 0630 this morning. Coronavirus screen: Proceed with normal triage. Patient denies a cough. Patient denies shortness of breath or difficulty breathing. Patient denies measured and/or subjective temperature greater than 100.4F prior to today's visit. Patient denies travel on a cruise ship or to a country the [facility] currently lists as an affected area. Patient denies contact with known and/or suspected case of COVID-19. Ebola Screen: Patient negative for fever greater than or equal to 101.5 degrees Fahrenheit, and additional compatible Ebola Virus Disease symptoms Patient denies exposure to infectious person. Patient denies travel to an Ebola-affected area in the 21 days before illness onset. No symptoms or risks identified at this time. Initial Sepsis Screen: Does the patient meet any 2 criteria? No. Patient's initial sepsis screen is negative. Does the patient have a suspected source of infection? No. Patient's initial sepsis screen is negative. Risk Assessment: Do you want to hurt yourself or someone else? Patient reports no desire to harm self or others. Onset of symptoms was November 04, 2019. 08:16 Method Of Arrival: EMS: [facility] iw 08:16 Acuity: LUIS 3 iw Historical: - Allergies: 08:20 Acyclovir; iw 08:20 Demerol; iw 08:20 Meperidine; iw 08:20 Vancomycin; iw - PMHx: 08:20 Diabetes - IDDM; GERD; High Cholesterol; Hypertension; Hypothyroidism; Neck/Throat iw Cancer; Renal Disease; - Immunization history:: Adult Immunizations up to date. - Social history:: Smoking status: Patient/guardian denies using tobacco, but has a distant history of tobacco abuse. Screenin:35 Abuse screen: Denies threats or abuse. Denies injuries from another. Nutritional iw screening: No deficits noted. Tuberculosis screening: No symptoms or risk factors identified. Fall Risk None identified. Assessment: 08:35 General: Appears in no apparent distress. Behavior is calm, cooperative. Pain: Denies iw pain. Neuro: Level of Consciousness is awake, alert, obeys commands, Oriented to person, place, time, situation, Moves all extremities. Cardiovascular: Patient's skin is warm and dry. Respiratory: Airway is patent Respiratory effort is even, unlabored, Respiratory pattern is regular, symmetrical. GI: Abdomen is flat, non-distended. GI: Reports nausea, Patient currently denies diarrhea, vomiting. : Denies burning with urination. Derm: Skin is intact, is healthy with good turgor. Musculoskeletal: Range of motion: intact in all extremities. 09:30 Reassessment: Patient appears in no apparent distress at this time. Patient and/or rb1 family updated on plan of care and expected duration. Pain level reassessed. Patient is alert, oriented x 3, equal unlabored respirations, skin warm/dry/pink. Patient denies pain at this time. 10:30 Reassessment: Patient appears in no apparent distress at this time. No changes from rb1 previously documented assessment. 11:28 Reassessment: Patient appears in no apparent distress at this time. Patient and/or rb1 family updated on plan of care and expected duration. Pain level reassessed. Patient is alert, oriented x 3, equal unlabored respirations, skin warm/dry/pink. 12:15 Reassessment: Patient appears in no apparent distress at this time. No changes from rb1 previously documented assessment. Vital Signs: 08:16 BP 105 / 68; Pulse 78; Resp 16 S; Temp 97.2; Pulse Ox 100% on R/A; Weight 70.31 kg; iw Height 6 ft. 0 in. (182.88 cm); Pain 0/10; 09:00 BP 124 / 70; Pulse 73; Resp 15; Pulse Ox 100% ; Pain 0/10; rb1 10:00 BP 108 / 62; Pulse 72; Resp 20; Pulse Ox 98% on R/A; rb1 11:00 BP 122 / 73; Pulse 70; Resp 12; Pulse Ox 97% on R/A; Pain 0/10; rb1 12:00 BP 124 / 66; Pulse 69; Resp 12; Pulse Ox 98% on R/A; rb1 08:16 Body Mass Index 21.02 (70.31 kg, 182.88 cm) iw NIH Stroke Scale Scores: 09:29 NIHSS Score: 0 frankie ED Course: 08:05 Patient arrived in ED. iw 08:07 Marvin Ramos MD is Attending Physician. frankie 08:19 Triage completed. iw 08:20 Arm band placed on. iw 08:34 Arely Engle, RN is Primary Nurse. iw 08:34 Maintain EMS IV. Dressing intact. Good blood return noted. Site clean \T\ dry. Gauge \T\ iw site: 20 RFA. 08:46 CT Head Brain wo Cont In Process Unspecified. EDMS 09:03 Patient has correct armband on for positive identification. Bed in low position. Call rb1 light in reach. Side rails up X 1. Pulse ox on. NIBP on. Warm blanket given. 09:35 XRAY Chest (1 view) In Process Unspecified. EDMS 10:24 Primary Nurse role handed off by Arely Engle, ROSANNA rb1 10:24 Carolann Garsia, RN is Primary Nurse. rb1 12:30 No provider procedures requiring assistance completed. IV discontinued, intact, rb1 bleeding controlled, No redness/swelling at site. Pressure dressing applied. Administered Medications: 08:37 Drug: NS 0.9% 1000 ml Route: IV; Rate: 1 bolus; Site: right forearm; iw 09:44 Follow up: IV Status: Completed infusion rb1 09:12 Not Given (Duplicate Order): Insulin Regular Human 10 units IVP once frankie 09:23 Drug: Insulin Regular Human 6 units {Co-Signature: iw (Arely Engle RN).} Route: IVP; rb1 Site: right forearm; 09:25 Follow up: Response: No adverse reaction; Blood sugar is lowered rb1 11:20 Drug: NS 0.9% 500 ml Route: IV; Rate: bolus; Site: left antecubital; aa5 12:00 Follow up: IV Status: Completed infusion rb1 11:59 Drug: LanTUS 35 units Route: Sub-Q; Site: abdomen; rb1 12:15 Follow up: Response: No adverse reaction rb1 Outcome: 10:53 Discharge ordered by . frankie 12:30 Patient left the ED. iw 12:30 Discharged to home via wheelchair. rb1 12:30 Condition: stable 12:30 Discharge instructions given to patient, Instructed on discharge instructions, follow up and referral plans. medication usage, Demonstrated understanding of instructions, follow-up care, medications, Prescriptions given X 1. NIH Stroke Scale - NIH Stroke Score Date: 11/04/2019 Time: 09:29 Total Score = 0 1a. Level of Consciousness (LOC) - 0(Alert) 1b. Level of Consciousness (LOC) (Year \T\ Age) - 0(Both) 1c. LOC Commands (Open \T\ Closes Eyes/Hydraulic Hammer Operator) - 0(Both) 2. Best Gaze (Lateral Gaze Paresis) - 0(Normal) 3. Visual Field Loss - 0(No visual loss) 4. Facial Palsy - 0(Normal) 5a. Left Arm: Motor (10-second hold) - 0(No drift) 5b. Right Arm: Motor (10-second hold) - 0(No drift) 6a. Left Leg: Motor (5-second hold - always test supine) - 0(No drift) 6b. Right Leg: Motor (5-second hold - always test supine) - 0(No drift) 7. Limb Ataxia (finger/nose \T\ heel/anders - test with eyes open) - 0(Absent) 8. Sensory Loss (pinprick arms/legs/face) - 0(Normal) 9. Best Language: Aphasia (description/naming/reading) - 0(No aphasia) 10. Dysarthria (speech clarity - read or repeat words) - 0(Normal) 11. Extinction and Inattention (visual/tactile/auditory/spatial/personal) - 0(No abnormality) Initials: frankie Signatures: Dispatcher [employer] EDMarvin Vera MD MD cha Williams, Irene, RN RN iw Barb Quinones RN RN aa5 Carolann Garsia RN RN rb1 Arely Engle RN iw
--- NOTE | 2019-11-04 10:54 | EDPHYS ---
Physician Documentation [facility] Name: Scott Mederos Age: 69 yrs Sex: Male : 1950 Arrival Date: 11/04/2019 Time: 08:05 Bed 8 Private MD: CHANDAN Physician Marvin Ramos HPI: 11/03 08:32 This 69 yrs old Male presents to ER via EMS with complaints of Nausea, High frankie Blood Sugar. 08:32 The patient presents to the emergency department with nausea. Onset: The frankie symptoms/episode began/occurred just prior to arrival, this morning. Possible causes: unknown. The symptoms are aggravated by nothing. Associated signs and symptoms: The patient has no apparent associated signs or symptoms. Severity of symptoms: At their worst the symptoms were moderate in the emergency department the symptoms have improved mildly. The patient has experienced similar episodes in the past, several times. Historical: - Allergies: 08:20 Acyclovir; iw 08:20 Demerol; iw 08:20 Meperidine; iw 08:20 Vancomycin; iw - PMHx: 08:20 Diabetes - IDDM; GERD; High Cholesterol; Hypertension; Hypothyroidism; Neck/Throat iw Cancer; Renal Disease; - Immunization history:: Adult Immunizations up to date. - Social history:: Smoking status: Patient/guardian denies using tobacco, but has a distant history of tobacco abuse. ROS: 08:33 Constitutional: Negative for fever, chills, and weight loss, Eyes: Negative for injury, frankie pain, redness, and discharge, ENT: Negative for injury, pain, and discharge, Neck: Negative for injury, pain, and swelling, Cardiovascular: Negative for chest pain, palpitations, and edema, Respiratory: Negative for shortness of breath, cough, wheezing, and pleuritic chest pain, Back: Negative for injury and pain, : Negative for injury, bleeding, discharge, and swelling, MS/Extremity: Negative for injury and deformity, Skin: Negative for injury, rash, and discoloration, Psych: Negative for depression, anxiety, suicide ideation, homicidal ideation, and hallucinations, Allergy/Immunology: Negative for hives, rash, and allergies, Endocrine: Negative for neck swelling, polydipsia, polyuria, polyphagia, and marked weight changes, Hematologic/Lymphatic: Negative for swollen nodes, abnormal bleeding, and unusual bruising. 08:33 Abdomen/GI: Positive for nausea. 08:33 Neuro: Positive for altered mental status, weakness, non focal. Exam: 08:33 Constitutional: This is a well developed, well nourished patient who is awake, alert, frankie and in no acute distress. Head/Face: Normocephalic, atraumatic. Eyes: Pupils equal round and reactive to light, extra-ocular motions intact. Lids and lashes normal. Conjunctiva and sclera are non-icteric and not injected. Cornea within normal limits. Periorbital areas with no swelling, redness, or edema. ENT: Nares patent. No nasal discharge, no septal abnormalities noted. Tympanic membranes are normal and external auditory canals are clear. Oropharynx with no redness, swelling, or masses, exudates, or evidence of obstruction, uvula midline. Mucous membranes moist. Neck: Trachea midline, no thyromegaly or masses palpated, and no cervical lymphadenopathy. Supple, full range of motion without nuchal rigidity, or vertebral point tenderness. No Meningismus. Chest/axilla: Normal chest wall appearance and motion. Nontender with no deformity. No lesions are appreciated. Cardiovascular: Regular rate and rhythm with a normal S1 and S2. No gallops, murmurs, or rubs. Normal PMI, no JVD. No pulse deficits. Respiratory: Lungs have equal breath sounds bilaterally, clear to auscultation and percussion. No rales, rhonchi or wheezes noted. No increased work of breathing, no retractions or nasal flaring. Abdomen/GI: Soft, non-tender, with normal bowel sounds. No distension or tympany. No guarding or rebound. No evidence of tenderness throughout. Back: No spinal tenderness. No costovertebral tenderness. Full range of motion. Male : Normal genitalia with no discharge or lesions. Skin: Warm, dry with normal turgor. Normal color with no rashes, no lesions, and no evidence of cellulitis. MS/ Extremity: Pulses equal, no cyanosis. Neurovascular intact. Full, normal range of motion. Neuro: Awake and alert, GCS 15, oriented to person, place, time, and situation. Cranial nerves II-XII grossly intact. Motor strength 5/5 in all extremities. Sensory grossly intact. Cerebellar exam normal. Normal gait. Psych: Awake, alert, with orientation to person, place and time. Behavior, mood, and affect are within normal limits. 08:33 Neck: External neck: is normal, no acute changes, ROM/movement: is normal, no acute changes, Meningeal signs: are not present, Kernig's sign is negative, Brudzinski's sign is negative. 09:10 ECG was reviewed by the Attending Physician. frankie Vital Signs: 08:16 BP 105 / 68; Pulse 78; Resp 16 S; Temp 97.2; Pulse Ox 100% on R/A; Weight 70.31 kg; iw Height 6 ft. 0 in. (182.88 cm); Pain 0/10; 09:00 BP 124 / 70; Pulse 73; Resp 15; Pulse Ox 100% ; Pain 0/10; rb1 10:00 BP 108 / 62; Pulse 72; Resp 20; Pulse Ox 98% on R/A; rb1 11:00 BP 122 / 73; Pulse 70; Resp 12; Pulse Ox 97% on R/A; Pain 0/10; rb1 12:00 BP 124 / 66; Pulse 69; Resp 12; Pulse Ox 98% on R/A; rb1 08:16 Body Mass Index 21.02 (70.31 kg, 182.88 cm) iw NIH Stroke Scale Scores: 09:29 NIHSS Score: 0 frankie MDM: 08:07 Patient medically screened. frankie 08:36 Differential diagnosis: viral gastroenteritis, gastroenteritis. Differential Diagnosis: frankie CVA, electrolyte abnormality, sepsis, TIA, UTI, volume depletion. 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 Test interpretation: by ED physician or midlevel provider: ECG, plain radiologic studies. Counseling: I had a detailed discussion with the patient and/or guardian regarding: the historical points, exam findings, and any diagnostic results supporting the discharge/admit diagnosis, lab results, radiology results, the need for further work-up and treatment in the hospital. 08:37 Data reviewed: vital signs, nurses notes, lab test result(s), EKG, radiologic studies, frankie CT scan, plain films. 10:47 ED course: pt stable, blood glucose better controlled, pt at his lab baseline, nausea frankie resolved, abdomen benign, will dc and arrange close follow up. 11/03 08:32 Order name: Basic Metabolic Panel; Complete Time: 09:47 [facility] 11/03 08:32 Order name: CBC with Diff; Complete Time: 09:30 [facility] 11/03 08:32 Order name: LFT's; Complete Time: 09:47 [facility] 11/03 08:32 Order name: Magnesium; Complete Time: 09:47 [facility] 11/03 08:32 Order name: NT PRO-BNP; Complete Time: 09:47 [facility] 11/03 08:32 Order name: PT-INR; Complete Time: 09:30 [facility] 11/03 08:32 Order name: Troponin (emerg Dept Use Only); Complete Time: 09:47 [facility] 11/03 08:32 Order name: XRAY Chest (1 view) [facility] 11/03 08:35 Order name: Lipase; Complete Time: 09:47 [facility] 11/03 09:01 Order name: Glucose, Ancillary Testing; Complete Time: 09:30 EDMS 11/03 09:22 Order name: Glucose, Ancillary Testing; Complete Time: 09:30 EDMS 11/03 09:48 Order name: ABG; Complete Time: 10:45 [facility] 11/03 11:51 Order name: Glucose, Ancillary Testing EDMS 11/03 12:17 Order name: Urine Dipstick--Ancillary (enter results) 11/03 08:32 Order name: EKG; Complete Time: 08:33 [facility] 11/03 08:32 Order name: Cardiac monitoring; Complete Time: 08:37 [facility] 11/03 08:32 Order name: EKG - Nurse/Tech [facility] 11/03 08:32 Order name: IV Saline Lock; Complete Time: 08:37 [facility] 11/03 08:32 Order name: Labs collected and sent; Complete Time: 08:37 [facility] 11/03 08:32 Order name: O2 Per Protocol; Complete Time: 08:37 [facility] 11/03 08:32 Order name: O2 Sat Monitoring; Complete Time: 08:37 [facility] 11/03 08:32 Order name: Urine Dipstick-Ancillary (obtain specimen); Complete Time: 17:07 [facility] 11/03 08:35 Order name: CT Head Brain wo Cont; Complete Time: 09:30 [facility] 11/03 09:48 Order name: Blood Glucose Level; Complete Time: 12:01 [facility] 11/03 10:20 Order name: ARTERIAL BLOOD GAS EDMS EC:10 Rate is 75 beats/min. Rhythm is regular. QRS [place] is Normal. NV interval is normal. QRS frankie interval is normal. QT interval is normal. No Q waves. T waves are Normal. No ST changes noted. Clinical impression: Normal ECG and No evidence of ischemia. Interpreted by me. Reviewed by me. Administered Medications: 08:37 Drug: NS 0.9% 1000 ml Route: IV; Rate: 1 bolus; Site: right forearm; iw 09:44 Follow up: IV Status: Completed infusion rb1 09:12 Not Given (Duplicate Order): Insulin Regular Human 10 units IVP once frankie 09:23 Drug: Insulin Regular Human 6 units {Co-Signature: iw (Arely Engle RN).} Route: IVP; rb1 Site: right forearm; 09:25 Follow up: Response: No adverse reaction; Blood sugar is lowered rb1 11:20 Drug: NS 0.9% 500 ml Route: IV; Rate: bolus; Site: left antecubital; aa5 12:00 Follow up: IV Status: Completed infusion rb1 11:59 Drug: LanTUS 35 units Route: Sub-Q; Site: abdomen; rb1 12:15 Follow up: Response: No adverse reaction rb1 Disposition: 11/04/19 10:53 Discharged to Home. Impression: Nausea, Type 1 diabetes mellitus, Unspecified kidney failure - chronic. - Condition is Stable. - Discharge Instructions: Type 1 Diabetes Mellitus, Diagnosis, Adult, Nausea and Vomiting, Adult, Nausea, Adult, Nausea and Vomiting, Adult, [id number], Diabetes Mellitus and Food, Type 1 Diabetes Mellitus, Self Care, Adult, Type 1 Diabetes Mellitus, Diagnosis, Adult, [id number], Type 1 Diabetes Mellitus, Self Care, Adult, [id number]. - Prescriptions for Zofran 4 mg Oral Tablet - take 1 tablet by ORAL route every 12 hours As needed; 20 tablet. - Medication Reconciliation Form, Thank You Letter, Antibiotic Education, Prescription Opioid Use form. - Follow up: Private Physician; When: 2 - 3 days; Reason: Recheck today's complaints, Continuance of care, Re-evaluation by your physician. - Problem is new. - Symptoms have improved. NIH Stroke Scale - NIH Stroke Score Date: 11/04/2019 Time: 09:29 Total Score = 0 1a. Level of Consciousness (LOC) - 0(Alert) 1b. Level of Consciousness (LOC) (Year \T\ Age) - 0(Both) 1c. LOC Commands (Open \T\ Closes Eyes/Acting Professor) - 0(Both) 2. Best Gaze (Lateral Gaze Paresis) - 0(Normal) 3. Visual Field Loss - 0(No visual loss) 4. Facial Palsy - 0(Normal) 5a. Left Arm: Motor (10-second hold) - 0(No drift) 5b. Right Arm: Motor (10-second hold) - 0(No drift) 6a. Left Leg: Motor (5-second hold - always test supine) - 0(No drift) 6b. Right Leg: Motor (5-second hold - always test supine) - 0(No drift) 7. Limb Ataxia (finger/nose \T\ heel/anders - test with eyes open) - 0(Absent) 8. Sensory Loss (pinprick arms/legs/face) - 0(Normal) 9. Best Language: Aphasia (description/naming/reading) - 0(No aphasia) 10. Dysarthria (speech clarity - read or repeat words) - 0(Normal) 11. Extinction and Inattention (visual/tactile/auditory/spatial/personal) - 0(No abnormality) Initials: frankie Signatures: Dispatcher [employer] EDMS Marvin Ramos MD MD cha Williams, Irene, RN RN iw Barb Quinones RN RN aa5 Carolann Garsia RN RN [facility] Arely Engle RN Corrections: (The following items were deleted from the chart) 12:30 10:53 11/04/2019 10:53 Discharged to Home. Impression: Nausea; Type 1 diabetes iw mellitus; Unspecified kidney failure - chronic. Condition is Stable. Discharge Instructions: Type 1 Diabetes Mellitus, Diagnosis, Adult, Nausea and Vomiting, Adult, Nausea, Adult, Nausea and Vomiting, Adult, [id number], Diabetes Mellitus and Food, Type 1 Diabetes Mellitus, Self Care, Adult, Type 1 Diabetes Mellitus, Diagnosis, Adult, [id number], Type 1 Diabetes Mellitus, Self Care, Adult, [id number]. Prescriptions for Zofran 4 mg Oral Tablet - take 1 tablet by ORAL route every 12 hours As needed; 20 tablet. and Forms are Medication Reconciliation Form, Thank You Letter, Antibiotic Education, Prescription Opioid Use. Follow up: Private Physician; When: 2 - 3 days; Reason: Recheck today's complaints, Continuance of care, Re-evaluation by your physician. Problem is new. Symptoms have improved. frankie
--- NOTE | 2019-11-04 10:55 | RAD REPORT ---
EXAM DESCRIPTION: RAD - Chest Single View - 11/04/2019 9:35 am CLINICAL HISTORY: COUGH Chest pain. COMPARISON: Chest Single View dated 08/23/2019; Chest Single View dated 04/30/2019; Chest Pa And Lat ( 2 Views) dated 11/13/2017; Chest Single View dated 02/14/2017 FINDINGS: Portable technique limits examination quality. The lungs are grossly clear. The heart is normal in size. No displaced fractures. IMPRESSION: No acute intrathoracic process suspected.
--- NOTE | 2019-11-04 11:13 | EKG ---
Test Date: 2019-11-04 Test Time: 08:58:24 Raker Buffing Wheel: MADISYN MEASUREMENT RESULTS: Intervals: Rate: 75 CO: 154 QRSD: 74 QT: 378 QTc: 422 [place]: P: 50 CO: 154 QRS: 58 T: 57 INTERPRETIVE STATEMENTS: Normal sinus rhythm Normal ECG Compared to ECG 08/23/2019 12:20:25 No significant changes Electronically Signed On 11-04-19 11:12:27 CDT by Scout Arrieta
[2019-11-04] MEDS ORDERED: NA CHLORIDE 0.9% 500 ML ONE (11:22)
[2019-11-04] MEDS ORDERED: INSULIN GLARGINE 100 UNITS/ML SQ ONE (12:05)
[2019-11-04 12:40] VITALS: BP 105/68; TEMP 97.2; O2SAT 100
[2019-11-04 13:03] LABS: Urine Blood TRACE (NEG); Urine Glucose 2+ (NEG); Urine Protein TRACE (NEG); Urine Specific Gravity 1.015 (1.005-1.030); Urine pH 5.5 (5.0-7.0)
== END 2019-11-04 12:30 | disposition home or self-care (01) ==
LOC: ER 08:03
DX: E10.22 Type 1 diabetes mellitus with diabetic chronic kidney disease (principal); I12.9 Hypertensive chronic kidney disease with stage 1 through stage 4 chronic kidney disease, or unspecified chronic kidney disease; N18.9 Chronic kidney disease, unspecified; Z85.89 Personal history of malignant neoplasm of other organs and systems; Z88.1 Allergy status to other antibiotic agents; Z88.3 Allergy status to other anti-infective agents; Z88.5 Allergy status to narcotic agent
CPT/HCPCS: 96361; 93005; 85025; 80048; 36415; 83735; 85610; 82947 ×3; 80076; 81003; 84484; 83690; 83880; 70450; 71045; 82805 ×2; 96372; 96374; 99284; J7040; J1815

== ENCOUNTER → 2019-11-06 | Day surgery (SDC) | payer OTHER ==
[~2019-11-06] MED LIST: ACETYLCYST 20% 4 ML VIAL IH ONE; ATROPINE SULF 1 MG/10 ML SYR IV ONE; D50W 25 GM/50 ML SYRINGE/VIAL IV PRN; FENTANYL CITR 100 MCG/2 ML ONE; GLUCAGON 1 MG/VIAL IM PRN; HEPA 1000U/500MLS 1,000 UNIT/500 ML BAG IV ONE; HEPARIN 5000 UNIT/ML 1 ML VIAL ONE; INSULIN -REGULAR HUMAN 50 UNIT/0.5 ML ML SQ SCH; MIDAZOLAM HCL 2 MG/2 ML INJ ONE; NA CHLORIDE 0.9% 500 ML ONE
--- OUTSIDE RECORDS SUMMARY | 2019-11-06 09:09 | XMS REPORT ---
:1950 Author Organization [facility] t Address [address] [place] [address] Dr. Phillips [address] [place] [id number] Care Team Providers Name Role Phone Unavailable Unavailable Unavailable Problems This patient has no known problems. Allergies, Adverse Reactions, Alerts This patient has no known allergies or adverse reactions. Medications This patient has no known medications. Procedures This patient has no known procedures. Results This patient has no known results.
[2019-11-06 16:08] VITALS: O2SAT 99
[2019-11-06 16:10] VITALS: BP 118/75; TEMP 97.4
--- NOTE | 2019-11-06 20:29 | OP ---
Surgeon: Scout Arrieta MD The patient admitted to the catheterization laboratory technician as an outpatient on 11/06/2019. Procedure: Selective bilateral carotid angiogram. Indication: Abnormal carotid Doppler as an outpatient CVD. The patient had come into my office and I did order a stress test on him before we did the carotid angiogram to make sure he does not need a catheterization either. His stress test was negative. He does have a creatinine of 2.15. He receiv ed Mucomyst before and he will receive Mucomyst after the procedure. The patient was prepped and bart ped in the routine sterile fashion. Given Versed for sedation. A 6-Gibraltarian sheath introduced in the right common femoral artery. Angiography there was normal. Angio-Seal was used to close the case. A JR4 catheter was advanced into the right common carotid artery and left common carotid artery. Ang iography there showed normal common carotid artery, mild to moderate plaquing in bilateral external c arotid artery. The internal carotid artery had only about 50% stenosis on both rhythm. These result s were much better than his previous studies have shown. The studies there were not invasive. The p atient tolerated the procedure well. There were no complications. Blood Loss: 5 mL. Postoperative Diagnosis: Moderate cardiovascular disease. Plan: Plan is for medical therapy. I will add statin to his regimen. Anesthesia: Total conscious sedation was 35 minutes. YENNI/JERONIMO Voice ID: [id number] Report ID: [id number]
== END | disposition home or self-care (01) ==
LOC: CCL 08:31
DX: I65.23 Occlusion and stenosis of bilateral carotid arteries (principal); I70.219 Atherosclerosis of native arteries of extremities with intermittent claudication, unspecified extremity; I11.0 Hypertensive heart disease with heart failure; I50.32 Chronic diastolic (congestive) heart failure; I35.9 Nonrheumatic aortic valve disorder, unspecified; I95.1 Orthostatic hypotension; E78.5 Hyperlipidemia, unspecified; E11.9 Type 2 diabetes mellitus without complications; G62.9 Polyneuropathy, unspecified; K21.9 Gastro-esophageal reflux disease without esophagitis; Z79.02 Long term (current) use of antithrombotics/antiplatelets; Z88.3 Allergy status to other anti-infective agents; Z88.8 Allergy status to other drugs, medicaments and biological substances
CPT/HCPCS: 36415; 82947 ×3; 85730; 36222; C1893; C1760; J2250; J3010; J7040; J1610; J1644

== ENCOUNTER 2019-11-07 14:02 | Emergency (ER) | payer OTHER ==
--- OUTSIDE RECORDS SUMMARY | 2019-11-07 14:11 | XMS REPORT ---
:1950 Author Organization [facility] t Address [address] [place] [address] Dr. Phillips [address] [place] [id number] Care Team Providers Name Role Phone Unavailable Unavailable Unavailable Problems This patient has no known problems. Allergies, Adverse Reactions, Alerts This patient has no known allergies or adverse reactions. Medications This patient has no known medications. Procedures This patient has no known procedures. Results This patient has no known results.
[2019-11-07] MEDS ORDERED: CLINDAMYCIN 600MG/D5W 600 MG/50 ML BAG IV ONE (15:23)
[2019-11-07 15:25] LABS: Absolute Lymphocytes (CBC) 0.6 K/uL (0.7-4.9); Hematocrit 32.7 % (39.6-49.0); Lymphocytes % 9.9 % (15.3-44.8); MPV 8.1 fL (7.6-11.3); RBC Red Blood Cell Count 3.46 M/uL (4.33-5.43)
[2019-11-07 15:41] LABS: Albumin 3.1 g/dL (3.4-5.0); Bilirubin Total 0.3 mg/dL (0.2-1.0); Potassium 4.9 mmol/L (3.5-5.1); Protein, Total 7.2 g/dL (6.4-8.2)
--- NOTE | 2019-11-07 15:57 | ER ---
Nurse's Notes [facility] Name: Scott Mederos Age: 69 yrs Sex: Male : 1950 Arrival Date: 11/07/2019 Time: 14:06 Bed 17 Private MD: Luz Cortez Diagnosis: Cellulitis and acute lymphangitis of finger and toe Presentation: 11/06 14:33 Chief complaint: Patient states: I have a wound in my ring finger on the L hand, been ca1 being treated at the wound center but it has gone purple now and they sent my here. Coronavirus screen: Proceed with normal triage. Patient denies a cough. Patient denies shortness of breath or difficulty breathing. Patient denies measured and/or subjective temperature greater than 100.4F prior to today's visit. Patient denies travel on a cruise ship or to a country the [facility] currently lists as an affected area. Patient denies contact with known and/or suspected case of COVID-19. Ebola Screen: Patient negative for fever greater than or equal to 101.5 degrees Fahrenheit, and additional compatible Ebola Virus Disease symptoms Patient denies exposure to infectious person. Patient denies travel to an Ebola-affected area in the 21 days before illness onset. No symptoms or risks identified at this time. Initial Sepsis Screen: Does the patient meet any 2 criteria? No. Patient's initial sepsis screen is negative. Does the patient have a suspected source of infection? No. Patient's initial sepsis screen is negative. Risk Assessment: Do you want to hurt yourself or someone else? Patient reports no desire to harm self or others. Onset of symptoms was November 07, 2019. 14:33 Method Of Arrival: Wheelchair ca1 14:33 Acuity: LUIS 3 ca1 Triage Assessment: 16:21 General: Appears in no apparent distress. Behavior is calm, cooperative. ll1 Historical: - Allergies: 14:36 Acyclovir; ca1 14:36 Demerol; ca1 14:36 Meperidine; ca1 14:36 Vancomycin; ca1 - PMHx: 14:36 Diabetes - IDDM; GERD; High Cholesterol; Hypertension; Hypothyroidism; Neck/Throat ca1 Cancer; Renal Disease; - Immunization history:: Adult Immunizations up to date. - Social history:: Smoking status: Patient denies any tobacco usage or history of. - Family history:: not pertinent. Screenin:21 Abuse screen: Denies threats or abuse. Nutritional screening: No deficits noted. ll1 Tuberculosis screening: No symptoms or risk factors identified. Fall Risk None identified. IV access (20 points). Ambulatory Aid- Crutches/Cane/Walker (15 pts). Gait- Weak (10 pts.). Total Phoenix Fall Scale indicates High Risk Score (45 or more points). Fall prevention measures have been instituted. Side Rails Up X 2 Frequent Obs/Assessments Occuring As available patient and family educated on Fall Prevention Program and Strategies. Assessment: 15:00 General: Appears in no apparent distress. Behavior is calm. Pain: Denies pain. Neuro: ll1 No deficits noted. Cardiovascular: No deficits noted. Respiratory: No deficits noted. Derm: Abscess located on left hand 4th digit chronic wound. Musculoskeletal: Reports pain in Left hand 4th digit pain redness/swelling. Chronic wound. 16:00 Reassessment: No changes from previously documented assessment. Patient and/or family ll1 updated on plan of care and expected duration. Pain level reassessed. Patient is alert, oriented x 3, equal unlabored respirations, skin warm/dry/pink. Vital Signs: 14:33 BP 105 / 49; Pulse 81; Resp 16 S; Temp 97.2(TE); Pulse Ox 95% on R/A; Weight 70.31 kg ca1 (R); Height 5 ft. 11 in. (180.34 cm) (R); Pain 2/10; 16:15 BP 140 / 80; Pulse 75; Resp 17; Pulse Ox 96% ; Pain 0/10; ll1 14:33 Body Mass Index 21.62 (70.31 kg, 180.34 cm) ca1 ED Course: 14:06 Patient arrived in ED. as 14:06 Luz Cortez MD is Private Physician. as 14:35 Triage completed. ca1 14:36 Arm band placed on right wrist. ca1 14:47 Luke Holden RN is Primary Nurse. ll1 15:00 Shannan Breen MD is Attending Physician. ma2 15:56 Lewis Su MD is Referral Physician. ma2 16:00 Inserted saline lock: 22 gauge in right antecubital area, using aseptic technique. ll1 Blood collected. 16:00 No provider procedures requiring assistance completed. ll1 16:10 Wound care: to chronic open wound to left hand 4th digit located on left hand 4th digit ll1 was dressed with Neosporin, band aid, tolerated well. Patient tolerated well. 16:15 IV discontinued, intact, bleeding controlled, No redness/swelling at site. Pressure ll1 dressing applied. 16:21 Patient has correct armband on for positive identification. Bed in low position. Call 1 light in reach. Side rails up X 1. Administered Medications: 15:34 Drug: Clindamycin 600 mg Route: IVPB; Infused Over: 30 mins; Site: right antecubital; ll1 16:05 Follow up: IV Status: Completed infusion; IV Intake: 50ml ll1 Intake: 16:05 IV: 50ml; Total: 50ml. 1 Outcome: 15:56 Discharge ordered by . ma2 16:18 Patient left the ED. 1 16:18 Discharged to home via wheelchair. 1 16:18 Condition: stable 16:18 Discharge instructions given to patient, Instructed on discharge instructions, follow up and referral plans. medication usage, wound care, Demonstrated understanding of instructions, follow-up care, medications, wound care, Prescriptions given X 2. Signatures: Nargis Su Mohammad, MD MD pa2 Sofi Quiroga RN RN ca1 Luke Holden RN RN 1 Corrections: (The following items were deleted from the chart) 19:10 16:22 Patient did not have IV access during this emergency room visit. 1 1 19:13 19:10 No provider procedures requiring assistance completed. 1 ll1
--- NOTE | 2019-11-07 15:57 | EDPHYS ---
Physician Documentation [facility] Name: Scott Mederos Age: 69 yrs Sex: Male : 1950 Arrival Date: 11/07/2019 Time: 14:06 Bed 17 Private MD: Luz Cortez ED Physician Shannan Breen HPI: 11/06 15:53 This 69 yrs old Male presents to ER via Wheelchair with complaints of Wound ma2 Check. 15:53 Patient presents to ED for recheck of: cellulitis. Progress: The patient reports ma2 increased. The patient has experienced similar episodes in the past. left index finger erythema in the setting of chronic wound, has no systematic symptoms . Historical: - Allergies: 14:36 Acyclovir; ca1 14:36 Demerol; ca1 14:36 Meperidine; ca1 14:36 Vancomycin; ca1 - PMHx: 14:36 Diabetes - IDDM; GERD; High Cholesterol; Hypertension; Hypothyroidism; Neck/Throat ca1 Cancer; Renal Disease; - Immunization history:: Adult Immunizations up to date. - Social history:: Smoking status: Patient denies any tobacco usage or history of. - Family history:: not pertinent. ROS: 15:53 Constitutional: Negative for fever, chills, and weight loss. ma2 15:53 All other systems are negative. Exam: 15:53 Constitutional: This is a well developed, well nourished patient who is awake, alert, ma2 and in no acute distress. Head/Face: Normocephalic, atraumatic. Eyes: Pupils equal round and reactive to light, extra-ocular motions intact. Lids and lashes normal. Conjunctiva and sclera are non-icteric and not injected. Cornea within normal limits. Periorbital areas with no swelling, redness, or edema. ENT: Nares patent. No nasal discharge, no septal abnormalities noted. Tympanic membranes are normal and external auditory canals are clear. Oropharynx with no redness, swelling, or masses, exudates, or evidence of obstruction, uvula midline. Mucous membranes moist. Neck: Trachea midline, no thyromegaly or masses palpated, and no cervical lymphadenopathy. Supple, full range of motion without nuchal rigidity, or vertebral point tenderness. No Meningismus. Chest/axilla: Normal chest wall appearance and motion. Nontender with no deformity. No lesions are appreciated. Cardiovascular: Regular rate and rhythm with a normal S1 and S2. No gallops, murmurs, or rubs. Normal PMI, no JVD. No pulse deficits. Respiratory: Lungs have equal breath sounds bilaterally, clear to auscultation and percussion. No rales, rhonchi or wheezes noted. No increased work of breathing, no retractions or nasal flaring. Abdomen/GI: Soft, non-tender, with normal bowel sounds. No distension or tympany. No guarding or rebound. No evidence of tenderness throughout. Back: No spinal tenderness. No costovertebral tenderness. Full range of motion. MS/ Extremity: left index finger with chronic wound 1x1 cm and induration around it. no abscess no signs of tenosynovitis or crepitations Pulses equal, no cyanosis. Neurovascular intact. Full, normal range of motion. Neuro: Awake and alert, GCS 15, oriented to person, place, time, and situation. Cranial nerves II-XII grossly intact. Motor strength 5/5 in all extremities. Sensory grossly intact. Cerebellar exam normal. Normal gait. Vital Signs: 14:33 BP 105 / 49; Pulse 81; Resp 16 S; Temp 97.2(TE); Pulse Ox 95% on R/A; Weight 70.31 kg ca1 (R); Height 5 ft. 11 in. (180.34 cm) (R); Pain 2/10; 16:15 BP 140 / 80; Pulse 75; Resp 17; Pulse Ox 96% ; Pain 0/10; ll1 14:33 Body Mass Index 21.62 (70.31 kg, 180.34 cm) ca1 MDM: 15:00 Patient medically screened. ma2 15:53 Differential diagnosis: cellulitis. Differential diagnosis: no abscess no tenosynovitis ma2 no gangrene. Data reviewed: vital signs, nurses notes. Counseling: I had a detailed discussion with the patient and/or guardian regarding: the historical points, exam findings, and any diagnostic results supporting the discharge/admit diagnosis, the presence of at least one elevated blood pressure reading (>120/80) during this emergency department visit, the need for outpatient follow up. 11/06 15:02 Order name: Lactate; Complete Time: 15:56 ma2 11/06 15:02 Order name: CBC with Diff; Complete Time: 15:56 ma2 11/06 15:02 Order name: CMP; Complete Time: 15:56 ma2 Administered Medications: 15:34 Drug: Clindamycin 600 mg Route: IVPB; Infused Over: 30 mins; Site: right antecubital; ll1 16:05 Follow up: IV Status: Completed infusion; IV Intake: 50ml ll1 Disposition: 11/07/19 15:56 Discharged to Home. Impression: Cellulitis and acute lymphangitis of finger and toe. - Condition is Stable. - Discharge Instructions: Cellulitis, Adult, [id number]. - Prescriptions for Clindamycin HCl 300 mg Oral Capsule - take 1 capsule by ORAL route every 6 hours for 10 days; 40 capsule. Bactrim DS 800- 160 mg Oral Tablet - take 1 tablet by ORAL route every 12 hours for 10 days; 20 tablet. - Medication Reconciliation Form, Thank You Letter, Antibiotic Education, Prescription Opioid Use form. - Follow up: Lewis Su; When: Tomorrow; Reason: Continuance of care. Signatures: Dispatcher [employer] EDMS Shannan Breen MD MD ma2 Sofi Quiroga RN RN ca1 Luke Holden RN RN ll1 Corrections: (The following items were deleted from the chart) 16:18 15:56 11/07/2019 15:56 Discharged to Home. Impression: Cellulitis and acute ll1 lymphangitis of finger and toe. Condition is Stable. Discharge Instructions: Cellulitis, Adult, [id number]. Prescriptions for Clindamycin HCl 300 mg Oral Capsule - take 1 capsule by ORAL route every 6 hours for 10 days; 40 capsule, Bactrim DS 800-160 mg Oral Tablet - take 1 tablet by ORAL route every 12 hours for 10 days; 20 tablet. and Forms are Medication Reconciliation Form, Thank You Letter, Antibiotic Education, Prescription Opioid Use. Follow up: Lewis Su; When: Tomorrow; Reason: Continuance of care. md2
[2019-11-07 16:43] VITALS: BP 105/49; TEMP 97.2; O2SAT 95
== END 2019-11-07 16:18 | disposition home or self-care (01) ==
LOC: ER 14:02
DX: L03.012 Cellulitis of left finger (principal); L03.032 Cellulitis of left toe; L03.022 Acute lymphangitis of left finger; L03.042 Acute lymphangitis of left toe; I12.9 Hypertensive chronic kidney disease with stage 1 through stage 4 chronic kidney disease, or unspecified chronic kidney disease; E11.22 Type 2 diabetes mellitus with diabetic chronic kidney disease; N18.9 Chronic kidney disease, unspecified; Z88.1 Allergy status to other antibiotic agents; Z88.3 Allergy status to other anti-infective agents; Z88.8 Allergy status to other drugs, medicaments and biological substances
CPT/HCPCS: 36415; 80053; 83605; 85025; 96365; 99284

== ENCOUNTER 2019-11-17 12:09 | Emergency (ER) | payer OTHER ==
--- OUTSIDE RECORDS SUMMARY | 2019-11-17 12:11 | XMS REPORT ---
:1950 Author Organization [facility] t Address [address] [place] [address] Dr. Phillips [address] [place] [id number] Care Team Providers Name Role Phone Unavailable Unavailable Unavailable Problems This patient has no known problems. Allergies, Adverse Reactions, Alerts This patient has no known allergies or adverse reactions. Medications This patient has no known medications. Procedures This patient has no known procedures. Results This patient has no known results.
[2019-11-17 13:43] LABS: Absolute Lymphocytes (CBC) 0.9 K/uL (0.7-4.9); Basophils % 1.1 % (0-1.3); Hematocrit 28.7 % (39.6-49.0); Lymphocytes % 11.5 % (15.3-44.8); MPV 7.3 fL (7.6-11.3)
[2019-11-17 14:00] LABS: Albumin 2.8 g/dL (3.4-5.0); Bilirubin Total 0.2 mg/dL (0.2-1.0); Potassium 4.6 mmol/L (3.5-5.1); Protein, Total 6.6 g/dL (6.4-8.2)
[2019-11-17 15:43] VITALS: TEMP 97.2
[2019-11-17 15:46] VITALS: BP 112/73; O2SAT 96
--- NOTE | 2019-11-24 12:19 | ER ---
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 liliane Su, reports pain and wound is getting worse. pt stated "I just want you to go ahead and cut it off already.". Coronavirus screen: Proceed with normal triage. Ebola Screen: No symptoms or risks identified at this time. Initial Sepsis Screen: Does the patient meet any 2 criteria? No. Patient's initial sepsis screen is negative. Does the patient have a suspected source of infection? No. Patient's initial sepsis screen is negative. Risk Assessment: Do you want to hurt yourself or someone else? Patient reports no desire to harm self or others. Onset of symptoms is unknown. 12:27 Method Of Arrival: Wheelchair hb 12:27 Acuity: LUIS 2 hb Historical: - Allergies: 12:34 Acyclovir; hb 12:34 Demerol; hb 12:34 Meperidine; hb 12:34 Vancomycin; hb - PMHx: 12:34 Diabetes - IDDM; High Cholesterol; GERD; Hypertension; hypotension; Hypothyroidism; hb Neck/Throat Cancer; Renal Disease; - Immunization history:: Adult Immunizations up to date. - Social history:: Smoking status: Patient denies any tobacco usage or history of. Screenin:34 Abuse screen: Denies threats or abuse. Denies injuries from another. Nutritional hb screening: No deficits noted. Tuberculosis screening: No symptoms or risk factors identified. Fall Risk None identified. Assessment: 12:34 Reassessment: [place] [phone]. hb 13:00 General: Appears in no apparent distress. comfortable, Behavior is calm, cooperative. iw Pain: Complains of pain in dorsal aspect of distal phalanx of left ring finger, dorsal aspect of middle phalanx of left ring finger, palmar aspect of distal phalanx of left ring finger, palmar aspect of middle phalanx of left ring finger and left ring fingernail. Neuro: Level of Consciousness is awake, alert, obeys commands, Oriented to person, place, time, situation. Cardiovascular: Patient's skin is warm and dry. Respiratory: Respiratory effort is even, unlabored, Respiratory pattern is regular, symmetrical. Derm: Wound noted dorsal aspect of distal phalanx of left ring finger, dorsal aspect of middle phalanx of left ring finger, palmar aspect of distal phalanx of left ring finger and palmar aspect of middle phalanx of left ring finger Wound is full thickness, chronic wound to left ring finger, has been seen by Dr. Hillman and Dr. Su for wound care, pt states he is tired of the pain and just wants the finger amputated. Musculoskeletal: Range of motion: intact in all extremities. 14:31 Reassessment: Patient appears in no apparent distress at this time. Patient and/or iw family updated on plan of care and expected duration. Pain level reassessed. Patient is alert, oriented x 3, equal unlabored respirations, skin warm/dry/pink. Vital Signs: 12:27 BP 70 / 47; Pulse 48; Resp 16; Temp 97.2; Pulse Ox 94% on R/A; Weight 70.31 kg; Height hb 6 ft. (182.88 cm); Pain 2/10; 12:49 BP 99 / 64; Pulse 76; Resp 16; Pulse Ox 94% on R/A; iw 14:34 BP 112 / 73; Pulse 63; Resp 16; Pulse Ox 96% on R/A; iw 12:27 Body Mass Index 21.02 (70.31 kg, 182.88 cm) hb ED Course: 12:10 Patient arrived in ED. ag5 12:11 Luz Cortez MD is Private Physician. ag5 12:33 Triage completed. hb 12:34 Arm band placed on. hb 12:37 Jerrod Mei NP is PHCP. pm1 12:37 Marlon Springer MD is Attending Physician. pm1 12:49 Arely Engle, ROSANNA is Primary Nurse. iw 13:30 Initial lab(s) drawn, by me, sent to lab. Inserted saline lock: 22 gauge in right iw forearm, using aseptic technique. 14:00 Patient has correct armband on for positive identification. iw 14:48 Lewis Su MD is Referral Physician. pm1 15:00 No provider procedures requiring assistance completed. iw 15:13 IV discontinued, intact, bleeding controlled, No redness/swelling at site. Pressure iw dressing applied. Administered Medications: No medications were administered Outcome: 14:49 Discharge ordered by . pm1 15:13 Discharged to home via wheelchair, with family. iw 15:13 Condition: good 15:13 Discharge instructions given to patient, Instructed on discharge instructions, follow up and referral plans. need to call Dr. Su at 0900 tomorrow and to keep his wound care appt, pt verbalized understanding Demonstrated understanding of instructions, follow-up care. 15:14 Patient left the ED. iw Signatures: Arely Engle RN RN iw Jerrod Mei, CLINICAL STATISTICS MANAGER CLINICAL STATISTICS MANAGER pm1 Rosemary Parsons RN RN Gracie Vickers ag5
--- NOTE | 2019-11-24 12:19 | EDPHYS ---
Physician Documentation [facility] Name: Scott Mederos Age: 69 yrs Sex: Male : 1950 Arrival Date: 11/17/2019 Time: 12:10 Bed 20 Private MD: Luz Cortez ED Physician Marlon Springer HPI: 11/16 13:14 This 69 yrs old Male presents to ER via Wheelchair with complaints of Finger pm1 Problem. 13:14 The patient or guardian reports pain, infection. The complaints affect the distal pm1 phalanx of left ring finger and middle phalanx of left ring finger. Context: resulted from gardening. Onset: The symptoms/episode began/occurred many months ago. Modifying factors: The symptoms are alleviated by nothing, the symptoms are aggravated by nothing. Associated signs and symptoms: Pertinent negatives: fever. Severity of symptoms: in the emergency department the symptoms are actually worse. The patient has been recently seen by a physician: Dr. Su 4 days ago and finger debrided. Historical: - Allergies: 12:34 Acyclovir; hb 12:34 Demerol; hb 12:34 Meperidine; hb 12:34 Vancomycin; hb - PMHx: 12:34 Diabetes - IDDM; High Cholesterol; GERD; Hypertension; hypotension; Hypothyroidism; hb Neck/Throat Cancer; Renal Disease; - Immunization history:: Adult Immunizations up to date. - Social history:: Smoking status: Patient denies any tobacco usage or history of. ROS: 13:14 Constitutional: Negative for fever, chills, and weight loss, Cardiovascular: Negative pm1 for chest pain, palpitations, and edema, Respiratory: Negative for shortness of breath, cough, wheezing, and pleuritic chest pain, Abdomen/GI: Negative for abdominal pain, nausea, vomiting, diarrhea, and constipation, Back: Negative for injury and pain. 13:14 Neuro: Negative for headache, weakness, numbness, tingling, and seizure. 13:14 MS/extremity: Positive for pain, of the left ring finger. 13:14 Skin: Positive for cellulitis, of the left ring finger. Exam: 13:14 Constitutional: This is a well developed, well nourished patient who is awake, alert, pm1 and in no acute distress. Head/Face: Normocephalic, atraumatic. 13:14 Cardiovascular: Exam negative for acute changes, Rate: normal, Rhythm: regular, Pulses: no pulse deficits are appreciated. 13:14 Respiratory: Exam negative for acute changes, respiratory distress, shortness of breath. 13:14 Abdomen/GI: Exam negative for acute changes, Inspection: abdomen appears normal, Palpation: abdomen is soft and non-tender, in all quadrants. 13:14 Musculoskeletal/extremity: Extremities: grossly normal except: mild cellulitis present to dorsal and palmar aspect of middle phalanx of left fourth finger and medial aspect of distal phalanx of left fourth finger. Vital Signs: 12:27 BP 70 / 47; Pulse 48; Resp 16; Temp 97.2; Pulse Ox 94% on R/A; Weight 70.31 kg; Height hb 6 ft. (182.88 cm); Pain 2/10; 12:49 BP 99 / 64; Pulse 76; Resp 16; Pulse Ox 94% on R/A; iw 14:34 BP 112 / 73; Pulse 63; Resp 16; Pulse Ox 96% on R/A; iw 12:27 Body Mass Index 21.02 (70.31 kg, 182.88 cm) hb MDM: 13:02 Patient medically screened. pm1 14:45 Physician consultation: Lewis Su MD was called at 14:40, was contacted at 14:40, pm1 regarding consult, patient's condition, and will see patient tomorrow at wound care center. Wants the patient to call his office tomorrow at 0900. Informed the patient of my discussion with Dr. Su. Instructed the patient to call Dr. Su office at 0900 tomorrow and keep his appointment at the wound care center tomorrow. 14:45 Counseling: I had a detailed discussion with the patient and/or guardian regarding: the pm1 historical points, exam findings, and any diagnostic results supporting the discharge/admit diagnosis, lab results, the need for outpatient follow up, with Dr. Su. 14:45 Data reviewed: vital signs. Data interpreted: Pulse oximetry: on room air is 96 %. pm1 Interpretation: normal. 11/16 13:12 Order name: CBC with Diff pm1 11/16 13:12 Order name: CMP pm1 11/16 13:12 Order name: Lactate; Complete Time: 14:18 pm1 11/16 13:12 Order name: IV Saline Lock; Complete Time: 13:50 pm1 Administered Medications: No medications were administered Disposition: 18:09 Co-signature as Attending Physician, Marlon Springer MD. rn Disposition: 11/17/19 14:49 Discharged to Home. 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 - Condition is Stable. - Discharge Instructions: Cellulitis, Adult. - Medication Reconciliation Form, Thank You Letter, Antibiotic Education, Prescription Opioid Use form. - Follow up: Lewis Su MD; When: Tomorrow; Reason: Recheck today's complaints, Continuance of care, Re-evaluation by your physician. - Problem is new. - Symptoms have improved. - Notes: Call the office of Dr. Su tomorrow at 9:00 AM [facility] Signatures: Dispatcher [employer] Arely Kingsley RN RN iw Marlon Springer MD MD rn Marinas, Patrick, NING RADIOLOGY RESIDENT pm1 Rosemary Parsons RN RN Corrections: (The following items were deleted from the chart) 14:50 14:49 11/17/2019 14:49 Discharged to Home. Impression: Cellulitis of left upper limb. pm1 Condition is Stable. Forms are Medication Reconciliation Form, Thank You Letter, Antibiotic Education, Prescription Opioid Use. Follow up: Lewis Su; When: Tomorrow; Reason: Recheck today's complaints, Continuance of care, Re-evaluation by your physician. Problem is new. Symptoms have improved. pm1 15:14 14:50 11/17/2019 14:49 Discharged to Home. 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 Condition is Stable. Forms are Medication Reconciliation Form, Thank You Letter, Antibiotic Education, Prescription Opioid Use. Follow up: Lewis Su; When: Tomorrow; Reason: Recheck today's complaints, Continuance of care, Re-evaluation by your physician. Problem is new. Symptoms have improved. pm1
== END 2019-11-17 15:14 | disposition home or self-care (01) ==
LOC: ER 12:09
DX: L03.012 Cellulitis of left finger (principal); S61.205A Unspecified open wound of left ring finger without damage to nail, initial encounter; E11.69 Type 2 diabetes mellitus with other specified complication; M86.9 Osteomyelitis, unspecified; I10 Essential (primary) hypertension; Y93.H2 Activity, gardening and landscaping; Z88.1 Allergy status to other antibiotic agents; Z88.5 Allergy status to narcotic agent; Z88.8 Allergy status to other drugs, medicaments and biological substances
CPT/HCPCS: 36415; 80053; 83605; 85025; 99283

== ENCOUNTER 2019-11-20 06:32 | Day surgery (SDC) | payer OTHER ==
--- OUTSIDE RECORDS SUMMARY | 2019-11-20 06:34 | XMS REPORT ---
:1950 Author Organization [facility] t Address [address] [place] [address] Dr. Phillips [address] [place] [id number] Care Team Providers Name Role Phone Unavailable Unavailable Unavailable Problems This patient has no known problems. Allergies, Adverse Reactions, Alerts This patient has no known allergies or adverse reactions. Medications This patient has no known medications. Procedures This patient has no known procedures. Results This patient has no known results.
[2019-11-20] MEDS ORDERED: NA CHLORIDE 0.9% 1,000 ML ONE (06:43)
[2019-11-20] MEDS ORDERED: FENTANYL CITR 100 MCG/2 ML ONE (07:16)
[2019-11-20] MEDS ORDERED: LIDOCAINE 2% MPF 5 ML VIAL ONE (07:16)
[2019-11-20] MEDS ORDERED: propofoL 200 MG/20 ML VIAL IV ONE (07:16)
[2019-11-20] MEDS ORDERED: MIDAZOLAM HCL 2 MG/2 ML INJ ONE (07:16)
[2019-11-20] MEDS: CIPROFLOXACIN 400mg IV 400 MG/200 ML BAG IV ONE ×3 (07:27→07:45)
[2019-11-20] MEDS ORDERED: KETOROLAC 30 MG/ML INJ ONE (07:52)
[2019-11-20] MEDS ORDERED: EPHEDRINE SULF 50 MG/ML VIAL ONE (07:56)
[2019-11-20] MEDS ORDERED: BUPIVACAINE 0.5% PF 10 ML VIAL ONE (08:00)
--- NOTE | 2019-11-20 08:31 | P.BOP ---
Preoperative diagnosis: trumatic wound to left 4th finger with gangrene, cellulitis, osteomyelitis Postoperative diagnosis: same Primary procedure: Amputation left 4th finger Estimated blood loss: <10cc Specimen: middle and distal phalanx Findings: as above Anesthesia: General Complications: None Transferred to: Recovery Room Condition: Good
[2019-11-20] MEDS ORDERED: INSULIN -REGULAR HUMAN 50 UNIT/0.5 ML ML ONE (08:59)
[2019-11-20] MEDS ORDERED: ONDANSETRON 4 MG/2 ML VIAL ONE (09:13)
[2019-11-20] MEDS ORDERED: CODEINE 30MG/APAP 300MG TAB ONE (09:52)
[2019-11-20 10:48] VITALS: BP 115/98; TEMP 97.6; O2SAT 99
--- NOTE | 2019-12-01 22:30 | OP ---
Date of Procedure: 11/20/2019 Surgeon: Lewis Su MD Preoperative Diagnosis: Traumatic wound of left 4th finger with gangrene, cellulitis, osteomyelitis including the mid and distal phalanx. Postoperative Diagnosis: Traumatic wound of left 4th finger with gangrene, cellulitis, osteomyelitis including the mid and distal phalanx. Procedure: Amputation of left 4th finger at the proximal interphalangeal joint. Specimen: Middle and distal phalanx. Anesthesia: General plus local. Indications: This is a case of a 69-year-old patient, that have an accident with the [employer], re quire antibiotics. [facility] He even has surgical debridement not to o long ago. He stated the pain is too much for him, he does not want to continue with the same treat ment. He does not want to continue with the antibiotics IV. He wants to remove his finger where the 2 areas are damaged. The benefits, alternatives, and risks of amputation of the finger fully explai celina, which include but are not limited to infection, bleeding, damage to adjacent structures, anesthe rodney complications, nonhealing wound, osteomyelitis, neuromas, seromas, CA, and even . He also u nderstands that this may not relieve his symptoms. He might need more than one surgical intervention . He still may have more proximal amputation, he wants me to leave the proximal phalanx their if pos sible since he knows it is not involved. Description Of Procedure: We proceeded to bring him to the operating room, placed in supine position . Anesthesia was done without complication. Left hand was prepped and draped in a sterile fashion. The block was done by the Anesthesiology Department for help plus if he has any pain. This bone is seen in the distal joint is open, you can see between the joint and so have destructive osteomyelitis of the mid and the distal phalanx. So, we made an incision proximal in the area of the proximal int erphalangeal joint. Incision was made in a way that at the end we can close that in a [facility]. The bone was disarticulated in the joint. The nerve was identified and pulled and allowed to re tract to diminish the chance of neuromas. Then, the tendon was also done using same technique. That gave us the viable tissue at this moment and looked like a viable tissue to close the area with a co mbination of a 3-0 nylon after profuse irrigation of the area. The bone proximally at least on clear visualization does not look destructive, so hopefully he can preserve his proximal phalanx as he wis hed. Hemostasis obtained. Patient tolerated the procedure well. Patient was sent to recovery room in stable condition. If he developed necrosis of the area or the area does not heal then he may have to have a ray amputation of that entire area all the way to the metatarsal region. He does not want that at that moment. Patient understands the importance of p.o. antibiotic that we are going to giv e, the importance of keeping the area nice and clean. Patient was sent to Recovery in stable conditi on. Sponge count and instrument counts were correct. Disposition: Home. Activity: As tolerated. No heavy lifting. Followup: Follow up in my office in 1 week. Call for appointment at [phone]. Keep area dry. We have to mention that at the end of the case, we did not close the incision completely, we put a Pe nrose over the area to allow to drain the area of the incision. That [place] will be removed in the next few days. The patient advised and the family advised about the Akbar present so that area to be left to close by secondary intention. SANDRA/JERONIMO Voice ID: [id number] Report ID: [id number]
== END 2019-11-20 10:25 | disposition home or self-care (01) ==
LOC: PRE 06:32
PROVIDERS: ATTEND Surgery
PROC: 0X6T0Z1 Detachment at Left Ring Finger, High, Open Approach (ICD-10-PCS; principal; 2019-11-20 07:30)
DX: S61.205A Unspecified open wound of left ring finger without damage to nail, initial encounter (principal); L03.818 Cellulitis of other sites; I96 Gangrene, not elsewhere classified; M86.9 Osteomyelitis, unspecified
CPT/HCPCS: 26951; 82947 ×2; 88305; 88311; J2704; J2250; J7030; J2405; J0744; J3010

== ENCOUNTER 2020-02-19 07:08 | Observation (INO) | payer OTHER ==
--- OUTSIDE RECORDS SUMMARY | 2020-02-19 07:10 | XMS REPORT | Continuity of Care Document ---
:1950 Author Organization [facility] t Address [address] [place] [address] Dr. Phillips [address] [place] [id number] Care Team Providers Name Role Phone Unavailable Unavailable Unavailable Problems This patient has no known problems. Allergies, Adverse Reactions, Alerts This patient has no known allergies or adverse reactions. Medications This patient has no known medications. Procedures This patient has no known procedures. Results This patient has no known results.
[2020-02-19 08:06] LABS: Absolute Lymphocytes (CBC) 1.1 K/uL (0.7-4.9); Basophils % 1.3 % (0-1.3); Hematocrit 33.4 % (39.6-49.0); Lymphocytes % 18.4 % (15.3-44.8); MPV 8.4 fL (7.6-11.3); RBC Red Blood Cell Count 3.66 M/uL (4.33-5.43)
[2020-02-19 08:21] LABS: Protime INR 0.89
[2020-02-19 08:31] LABS: ALT/SGPT 14 U/L (12-78); AST/SGOT 11 U/L (15-37); Albumin 3.6 g/dL (3.4-5.0); Alkaline Phosphatase 98 U/L (45-117); BUN Blood Urea Nitrogen 30 mg/dL (7-18); Bicarbonate 24 mmol/L (21-32); Bilirubin Direct 0.2 mg/dL (0-0.2); Bilirubin Total 0.3 mg/dL (0.2-1.0); Glucose Level 108 mg/dL (74-106); Lipase 87 U/L (73-393); Magnesium 2.5 mg/dL (1.8-2.4); Potassium 4.9 mmol/L (3.5-5.1); Protein, Total 7.4 g/dL (6.4-8.2); Sodium Level 139 mmol/L (136-145); Troponin (Emerg Dept Use Only) < 0.02 ng/mL (0.0-0.045)
[2020-02-19] MEDS ORDERED: NA CHLORIDE 0.9% 500 ML ONE (08:33)
--- NOTE | 2020-02-19 08:42 | EDPHYS ---
Physician Documentation [facility] Name: Scott Mederos Age: 69 yrs Sex: Male : 1950 Arrival Date: 02/19/2020 Time: 07:13 Bed 8 Private MD: ED Physician Marlon Springer HPI: 02/18 07:33 This 69 yrs old Male presents to ER via Unassigned with complaints of syncope.rn 07:33 The patient has experienced syncope. Onset: The symptoms/episode began/occurred today. rn Duration: This was a single episode. Associated injury: The patient did not suffer any apparent associated injury. Current symptoms: Currently, the patient is not experiencing any symptoms. The patient has experienced similar episodes in the past. Pt reports trying to use bathroom, needed to have bowel movement, went to bathroom, then passed out. Woke up with stool everywhere, made it to his room, called 911. Denies preceding chest pain/headache/abd pain/sob. No injuries. Reports feels generalized weakness. EMS reports initial BP 80s systolic. . Historical: - Allergies: 08:02 Acyclovir; jr10 08:02 Demerol; jr10 08:02 Meperidine; jr10 08:02 Vancomycin; jr10 - Home Meds: 08:02 Novolog Sub-Q [Active]; jr10 14:05 levothyroxine 75 mcg oral tab once daily [Active]; midodrine 10 mg oral tab 3 times per jr10 day [Active]; Plavix 75 mg oral tab once daily [Active]; Protonix 40 mg oral TbEC once daily [Active]; gabapentin 600 mg oral tab 3 times per day [Active]; ferrous sulfate 325 mg (65 mg iron) Oral tab daily [Active]; trazodone 150 mg Oral tab nightly [Active]; folic acid 1 mg Oral tab once daily [Active]; Tradjenta 5 mg oral tab once daily [Active]; mirtazapine 45 mg Oral tab once daily [Active]; liothyronine 5 mcg oral tab once daily [Active]; - PMHx: 08:02 Diabetes - IDDM; GERD; High Cholesterol; Hypertension; hypotension; Hypothyroidism; jr10 Neck/Throat Cancer; Renal Disease; - Immunization history:: Adult Immunizations up to date. - Social history:: Smoking status: unknown. - Family history:: not pertinent. - Hospitalizations: : No recent hospitalization is reported. ROS: 07:35 Constitutional: Negative for fever, chills, and weight loss, Eyes: Negative for injury, rn pain, redness, and discharge, Neck: Negative for injury, pain, and swelling, Cardiovascular: Negative for chest pain, palpitations, and edema, Respiratory: Negative for shortness of breath, cough, wheezing, and pleuritic chest pain, Abdomen/GI: Negative for abdominal pain, vomiting, diarrhea, and constipation, MS/Extremity: Negative for injury and deformity, Skin: Negative for injury, rash, and discoloration, Neuro: Negative for headache, numbness, tingling, and seizure. Exam: 07:35 Constitutional: Thin male, no acute distress, covered in feces Head/Face: rn Normocephalic, atraumatic. ENT: dry MM Cardiovascular: Regular rate and rhythm. No pulse deficits. Respiratory: No increased work of breathing, no retractions or nasal flaring. Abdomen/GI: soft, non-tender, non-distended Skin: Cool, dry MS/ Extremity: Pulses equal, no cyanosis. Neurovascular intact. Multiple digital amputations. Neuro: Awake and alert, GCS 15, slow speech but patient reports is normal and does not report any speech disturbance. Cranial nerves II-XII grossly intact. Motor strength 4/5 in all extremities. Slight tremor LUE, no drift. Sensory grossly intact. 08:31 ECG was reviewed by the Attending Physician. rn Vital Signs: 07:21 BP 111 / 64; Pulse 74; Resp 18; Temp 93.5(R); Pulse Ox 96% on R/A; Weight 70.31 kg; jr10 Height 5 ft. 11 in. (180.34 cm); Pain 0/10; 08:25 BP 113 / 61; Pulse 84; Resp 16; Temp 94.0(C); Pulse Ox 98% on R/A; Pain 0/10; jr10 09:18 BP 110 / 51; Pulse 63; Resp 17; Temp 94.3(C); Pulse Ox 96% ; Pain 0/10; jr10 10:15 BP 105 / 56; Pulse 63; Resp 16; Temp 95.0; Pulse Ox 98% on R/A; jr10 10:50 BP 103 / 50; Pulse 65; Resp 16; Temp 96.3(C); Pulse Ox 97% on R/A; Pain 0/10; jr10 11:48 BP 146 / 48; Pulse 69; Resp 16; Temp 97.2(C); Pulse Ox 95% ; Pain 0/10; jr10 13:00 BP 144 / 53; Pulse 69; Resp 16; Temp 97.2(C); Pulse Ox 99% ; jr10 14:00 BP 154 / 72; Pulse 70; Resp 20; Temp 97.1(C); Pulse Ox 99% ; jr10 15:00 BP 134 / 57; Pulse 68; Resp 20; Temp 97.1(C); Pulse Ox 99% ; jr10 07:21 Body Mass Index 21.62 (70.31 kg, 180.34 cm) 10 MDM: 07:24 Patient medically screened. rn 08:07 ED course: Pt does not recall what time he woke up to use bathroom, not sure how long rn he was down, given hypothermic, unable to figure out exact onset of syncope/symptoms. . 08:40 Differential Diagnosis: cardiac arrhythmia, cerebrovascular accident, idiopathic rn syncope, sepsis, transient ischemic attack, vasovagal episode. Data reviewed: vital signs, nurses notes, lab test result(s), EKG, radiologic studies, CT scan, and as a result, I will admit patient. Counseling: I had a detailed discussion with the patient and/or guardian regarding: the historical points, exam findings, and any diagnostic results supporting the discharge/admit diagnosis, lab results, radiology results, the need for further work-up and treatment in the hospital. Response to treatment: the patient's symptoms have mildly improved after treatment, and as a result, I will admit patient. Admission orders: after a detailed discussion of the patient's condition and case, the admit orders are written by me. 02/18 07:32 Order name: Basic Metabolic Panel; Complete Time: 08:39 rn 02/18 07:32 Order name: CBC with Diff; Complete Time: 08:39 rn 02/18 07:32 Order name: Hepatic Function; Complete Time: 08:39 rn 02/18 07:32 Order name: Lipase; Complete Time: 08:39 rn 02/18 07:32 Order name: Magnesium; Complete Time: 08:39 rn 02/18 07:32 Order name: Protime (+inr); Complete Time: 08:39 rn 02/18 07:32 Order name: Ptt, Activated; Complete Time: 08:39 rn 02/18 07:32 Order name: Troponin (emerg Dept Use Only); Complete Time: 08:39 rn 02/18 07:35 Order name: Lactate; Complete Time: 08:39 rn 02/18 07:35 Order name: Procalcitonin; Complete Time: 09:00 rn 02/18 07:35 Order name: Blood Culture Adult (2) rn 02/18 08:10 Order name: Glucose, Ancillary Testing; Complete Time: 08:39 EDMS 02/18 08:41 Order name: CK rn 02/18 09:29 Order name: Urine Dipstick--Ancillary (enter results) em1 02/18 09:52 Order name: Urinalysis EDMS 02/18 09:52 Order name: CBC with Automated Diff EDMS 02/18 09:52 Order name: CBC with Automated Diff EDMS 02/18 09:52 Order name: Comprehensive Metabolic Panel EDMS 02/18 09:52 Order name: Comprehensive Metabolic Panel EDMS 02/18 09:52 Order name: Lactate EDMS 02/18 09:52 Order name: Lactate EDMS 02/18 09:52 Order name: Magnesium EDMS 02/18 09:52 Order name: Magnesium EDMS 02/18 09:52 Order name: NT PRO-BNP EDMS 02/18 09:52 Order name: NT PRO-BNP EDMS 02/18 09:52 Order name: Phosphorus EDMS 02/18 09:52 Order name: Phosphorus EDMS 02/18 11:10 Order name: COVID-19 aa5 02/18 11:49 Order name: CORONAVIRUS EDMS 02/18 13:12 Order name: SARS-COV-2 RT PCR EDMS 02/18 07:32 Order name: CT Head Brain wo Cont; Complete Time: 09:00 rn 02/18 07:32 Order name: EKG; Complete Time: 07:32 rn 02/18 07:32 Order name: Cardiac monitoring; Complete Time: 08:11 rn 02/18 07:32 Order name: EKG - Nurse/Tech; Complete Time: 08:23 rn 02/18 07:32 Order name: IV Saline Lock; Complete Time: 08:11 rn 02/18 07:32 Order name: Labs collected and sent; Complete Time: 08:11 rn 02/18 07:32 Order name: NPO; Complete Time: 08:11 rn 02/18 07:32 Order name: O2 Per Protocol; Complete Time: 08:11 rn 02/18 07:32 Order name: O2 Sat Monitoring; Complete Time: 08:12 rn 02/18 07:32 Order name: Urine Dipstick-Ancillary (obtain specimen); Complete Time: 09:42 rn 02/18 07:32 Order name: CT Abd/Pelvis - Without Contrast; Complete Time: 09:00 rn 02/18 09:52 Order name: Heart Healthy EDMS 02/18 09:54 Order name: Echo with Doppler EDMS 02/18 09:54 Order name: EEG Request EDMS 02/18 09:54 Order name: MRA Neck Without Cont EDMS 02/18 13:24 Order name: Lactate Sepsis 2 HR Follow-up EDMS 02/18 15:07 Order name: US EDMS EC:31 Rate is 70 beats/min. Rhythm is regular. QRS [place] is Normal. ND interval is normal. QRS rn interval is normal. QT interval is normal. No Q waves. T waves are Normal. No ST changes noted. Clinical impression: NSR w/ Non-specific ST/T Changes. Interpreted by me. Reviewed by me. Administered Medications: 08:51 Drug: NS 0.9% 500 ml Route: IV; Rate: bolus; Site: left forearm; 10 09:17 Follow up: Response: No adverse reaction; IV Status: Completed infusion jr10 09:18 Drug: NS 0.9% 1000 ml {Note: fluids placed on fluid warmer to help with jr10 thermoregulation. Will continue to monitor temp .} Route: IV; Rate: 125 ml/hr; Site: left forearm; 14:06 Follow up: Response: No adverse reaction; IV Status: Infusion continued upon admission jr10 12:30 Drug: Gabapentin 600 mg Route: PO; jr10 14:06 Follow up: Response: No adverse reaction jr10 Disposition: 02/19/20 08:41 Hospitalization ordered by Shannan Alexis for Observation. Preliminary diagnosis are Syncope and collapse, Hypothermia. - Bed requested for Telemetry/MedSurg (observation). - Status is Observation. jr10 - Condition is Stable. - Problem is new. - Symptoms have improved. Signatures: Dispatcher [employer] EDBernarda Dumont RN RN dw Marlon Springer MD MD rn Rivera, Jessica, RN RN jr10 Corrections: (The following items were deleted from the chart) 08:31 07:35 Constitutional: Thin male, no acute distress, covered in feces Head/Face: rn Normocephalic, atraumatic. ENT: dry MM Cardiovascular: Regular rate and rhythm. No pulse deficits. Respiratory: No increased work of breathing, no retractions or nasal flaring. Abdomen/GI: soft, non-tender, non-distended Skin: Warm, dry MS/ Extremity: Pulses equal, no cyanosis. Neurovascular intact. Multiple digital amputations. Neuro: Awake and alert, GCS 15, slow speech but patient reports is normal and does not report any speech disturbance. Cranial nerves II-XII grossly intact. Motor strength 4/5 in all extremities. Slight tremor LUE, no drift. Sensory grossly intact. rn 14:05 08:02 Home Meds: Benadryl Oral; jr10 jr10 14:05 08:02 Home Meds: Colace Oral; jr10 jr10 14:05 08:02 Home Meds: levothyroxine oral; jr10 jr10 14:05 08:02 Home Meds: midodrine Oral; jr10 jr10 14:05 08:02 Home Meds: Plavix Oral; jr10 jr10 14:05 08:02 Home Meds: Protonix Oral; jr10 jr10 14:05 08:02 Home Meds: rosuvastatin Oral; jr10 jr10 14:34 08:41 Hospitalization Ordered by Shannan Alexis MD for Observation. Preliminary dw diagnosis is Syncope and collapse; Hypothermia. Bed requested for Telemetry/MedSurg (observation). Status is Observation. Condition is Stable. Problem is new. Symptoms have improved. rn 15:21 14:34 02/19/2020 08:41 Hospitalization Ordered by Shannan Alexis MD for Observation. jr10 Preliminary diagnosis is Syncope and collapse; Hypothermia. Bed requested for Telemetry/MedSurg (observation). Status is Observation. Condition is Stable. Problem is new. Symptoms have improved. dw
--- NOTE | 2020-02-19 08:42 | ER ---
Nurse's Notes [facility] Name: Scott Mederos Age: 69 yrs Sex: Male : 1950 Arrival Date: 02/19/2020 Time: 07:13 Bed 8 Private MD: Diagnosis: Syncope and collapse;Hypothermia Presentation: 02/18 07:21 Chief complaint: Patient states: Pt presents via EMS with reports of possible syncopal jr10 episode. States that he got up to the go to the bathroom to have a BM and states that he passed out and fell forward off the toilet. Pt has no hx of syncope or seizures in the past; denies any cp, sob. Coronavirus screen: Client denies travel out of the [place] in the last 14 days. At this time, the client does not indicate any symptoms associated with coronavirus-19. Ebola Screen: No symptoms or risks identified at this time. Initial Sepsis Screen: Does the patient meet any 2 criteria? Temp <36.0*C (96.8*F)) or > 38.3*C (100.9*F). No. Patient's initial sepsis screen is negative. Does the patient have a suspected source of infection? No. Patient's initial sepsis screen is negative. Risk Assessment: Do you want to hurt yourself or someone else? Patient reports no desire to harm self or others. Onset of symptoms was February 19, 2020. 07:21 Method Of Arrival: EMS jr10 07:21 Acuity: LUIS 2 jr10 Historical: - Allergies: 08:02 Acyclovir; jr10 08:02 Demerol; jr10 08:02 Meperidine; jr10 08:02 Vancomycin; jr10 - Home Meds: 08:02 Novolog Sub-Q [Active]; jr10 14:05 levothyroxine 75 mcg oral tab once daily [Active]; midodrine 10 mg oral tab 3 times per jr10 day [Active]; Plavix 75 mg oral tab once daily [Active]; Protonix 40 mg oral TbEC once daily [Active]; gabapentin 600 mg oral tab 3 times per day [Active]; ferrous sulfate 325 mg (65 mg iron) Oral tab daily [Active]; trazodone 150 mg Oral tab nightly [Active]; folic acid 1 mg Oral tab once daily [Active]; Tradjenta 5 mg oral tab once daily [Active]; mirtazapine 45 mg Oral tab once daily [Active]; liothyronine 5 mcg oral tab once daily [Active]; - PMHx: 08:02 Diabetes - IDDM; GERD; High Cholesterol; Hypertension; hypotension; Hypothyroidism; jr10 Neck/Throat Cancer; Renal Disease; - Immunization history:: Adult Immunizations up to date. - Social history:: Smoking status: unknown. - Family history:: not pertinent. - Hospitalizations: : No recent hospitalization is reported. Screenin:25 Abuse screen: Denies threats or abuse. Denies injuries from another. Nutritional jr10 screening: No deficits noted. Tuberculosis screening: No symptoms or risk factors identified. Fall Risk Fall in past 12 months (25 points). Secondary diagnosis (15 points) syncope. IV access (20 points). Ambulatory Aid- None/Bed Rest/Nurse Assist (0 pts). Gait- Weak (10 pts.). Mental Status- Overestimates/Forgets Limitations (15 pts.). Assessment: 07:25 General: Appears in no apparent distress. unkempt, pt covered in stool upon arrival. jr10 Behavior is appropriate for age. General:. Pain: Denies pain. Neuro: No deficits noted. Level of Consciousness is awake, alert, obeys commands, Oriented to person, place, time, situation, Appropriate for age Legal Technician are equal bilaterally Weakness Speech is normal, Facial symmetry appears normal, Pupils are PERRLA, Intact. Cardiovascular: Denies chest pain, shortness of breath, Pulses are all present. Edema is absent. Rhythm is sinus rhythm. Respiratory: No deficits noted. Airway is patent Respiratory effort is even, unlabored, Respiratory pattern is regular, symmetrical, Breath sounds are clear bilaterally. Denies cough, shortness of breath. GI: Abdomen is flat, non-distended, Last BM was February 19, 2020. Bowel sounds present X 4 quads. Abd is soft and non tender X 4 quads. Reports nausea, Patient currently denies diarrhea, vomiting. : No deficits noted. No signs and/or symptoms were reported regarding the genitourinary system. EENT: No deficits noted. No signs and/or symptoms were reported regarding the EENT system. Derm: Skin temperature is cool. 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 Range of motion: intact in all extremities. 09:00 Reassessment: Patient and/or family updated on plan of care and expected duration. Pain jr10 level reassessed. Patient is alert, oriented x 3, equal unlabored respirations, skin warm/dry/pink. 10:12 Reassessment: Pt family contact information [place] (): [phone] (cell). jr10 10:17 Reassessment: Patient and/or family updated on plan of care and expected duration. Pain jr10 level reassessed. Patient is alert, oriented x 3, equal unlabored respirations, skin warm/dry/pink. Patient states symptoms have improved. 11:00 Reassessment: Patient and/or family updated on plan of care and expected duration. Pain jr10 level reassessed. Patient is alert, oriented x 3, equal unlabored respirations, skin warm/dry/pink. Patient states feeling better. 12:00 Reassessment: Patient and/or family updated on plan of care and expected duration. Pain jr10 level reassessed. Patient is alert, oriented x 3, equal unlabored respirations, skin warm/dry/pink. 13:00 Reassessment: Patient and/or family updated on plan of care and expected duration. Pain jr10 level reassessed. Patient is alert, oriented x 3, equal unlabored respirations, skin warm/dry/pink. 14:00 Reassessment: Patient and/or family updated on plan of care and expected duration. Pain jr10 level reassessed. Patient is alert, oriented x 3, equal unlabored respirations, skin warm/dry/pink. Vital Signs: 07:21 BP 111 / 64; Pulse 74; Resp 18; Temp 93.5(R); Pulse Ox 96% on R/A; Weight 70.31 kg; jr10 Height 5 ft. 11 in. (180.34 cm); Pain 0/10; 08:25 BP 113 / 61; Pulse 84; Resp 16; Temp 94.0(C); Pulse Ox 98% on R/A; Pain 0/10; jr10 09:18 BP 110 / 51; Pulse 63; Resp 17; Temp 94.3(C); Pulse Ox 96% ; Pain 0/10; jr10 10:15 BP 105 / 56; Pulse 63; Resp 16; Temp 95.0; Pulse Ox 98% on R/A; jr10 10:50 BP 103 / 50; Pulse 65; Resp 16; Temp 96.3(C); Pulse Ox 97% on R/A; Pain 0/10; jr10 11:48 BP 146 / 48; Pulse 69; Resp 16; Temp 97.2(C); Pulse Ox 95% ; Pain 0/10; jr10 13:00 BP 144 / 53; Pulse 69; Resp 16; Temp 97.2(C); Pulse Ox 99% ; jr10 14:00 BP 154 / 72; Pulse 70; Resp 20; Temp 97.1(C); Pulse Ox 99% ; jr10 15:00 BP 134 / 57; Pulse 68; Resp 20; Temp 97.1(C); Pulse Ox 99% ; jr10 07:21 Body Mass Index 21.62 (70.31 kg, 180.34 cm) jr10 ED Course: 07:13 Patient arrived in ED. em1 07:20 Arm band placed on right wrist. jr10 07:21 Genesis Norris, ROSANNA is Primary Nurse. jr10 07:24 Marlon Springer MD is Attending Physician. rn 07:25 Patient has correct armband on for positive identification. Placed in gown. Bed in low jr10 position. Call light in reach. Side rails up X2. manager monitoring on. Pulse ox on. NIBP on. Notified ED physician of other pt noted to be hypothermic, initial temp 93.5 rectal. 07:25 Cleaned of incontinence. pt noted to be incontinent and covered in stool upon arrival; jr10 per EMS pt was laying in his own feces upon their arrival. 07:25 No provider procedures requiring assistance completed. jr10 07:25 Maintain EMS IV. Dressing intact. Good blood return noted. Site clean \T\ dry. Gauge \T\ jr 10 site: 22# left wrist. 07:28 Missed attempt(s): 20 gauge in left wrist. Bleeding controlled, band aid applied, aa5 catheter tip intact. 07:30 Inserted saline lock: 20 gauge in right forearm, using aseptic technique. Blood jr10 collected. IV is patent, is intact, with good blood return, Flushed. 07:30 Inserted saline lock: 22 gauge in left forearm, using aseptic technique. aa5 07:40 Thermoregulation: warm blanket given to patient. Ernestine blanket applied. jr10 07:45 Gilliam cath inserted, using sterile technique, 16 Fr., by mt, balloon inflated, to jr10 gravity drainage, urine specimen collected. returned clear yellow urine. Patient tolerated well. 08:01 Triage completed. jr10 08:14 CT Head Brain wo Cont In Process Unspecified. EDMS 08:14 CT Abd/Pelvis - Without Contrast In Process Unspecified. EDMS 08:40 Shannan Alexis MD is Hospitalizing Provider. rn 13:38 Patient admitted, IV remains in place. intact, No redness/swelling at site. jr10 Administered Medications: 08:51 Drug: NS 0.9% 500 ml Route: IV; Rate: bolus; Site: left forearm; jr10 09:17 Follow up: Response: No adverse reaction; IV Status: Completed infusion jr10 09:18 Drug: NS 0.9% 1000 ml {Note: fluids placed on fluid warmer to help with jr10 thermoregulation. Will continue to monitor temp .} Route: IV; Rate: 125 ml/hr; Site: left forearm; 14:06 Follow up: Response: No adverse reaction; IV Status: Infusion continued upon admission jr10 12:30 Drug: Gabapentin 600 mg Route: PO; jr10 14:06 Follow up: Response: No adverse reaction jr10 Output: 09:43 Urine: 30ml (Straight Cath); Total: 30ml. jr10 10:50 Urine: 275ml (Gilliam); Total: 305ml. jr10 Outcome: 08:41 Decision to Hospitalize by Provider. rn 13:37 Admitted to ER Hold. Please see [facility] for further documentation. jr10 13:37 Condition: stable 13:37 Instructed on the need for admit. 15:17 Admitted to Med/surg accompanied by tech, via stretcher, room 206, with chart, Report jr10 called to ROSANNA Melendez 15:17 Condition: improved 15:17 Instructed on the need for admit. 15:21 Patient left the ED. jr10 Signatures: Dispatcher [employer] EDMS Marlon Springer MD MD rn Martinez, Eric em1 Barb Quinones RN RN aa5 Genesis Norris RN RN jr10 Corrections: (The following items were deleted from the chart) 08:25 07:21 BP 111 / 64; Pulse 74bpm; Resp 18bpm; Pulse Ox 96% RA; Temp 93.5F; 70.31 kg; jr10 Height 5 ft. 11 in.; BMI: 21.6; Pain 0/10; 10 : 08:02 Home Meds: Benadryl Oral; 10 14: 08:02 Home Meds: Colace Oral; 10 : 08:02 Home Meds: levothyroxine oral; : 08:02 Home Meds: midodrine Oral; 10 14: 08:02 Home Meds: Plavix Oral; 10 14: 08:02 Home Meds: Protonix Oral; 14: 08:02 Home Meds: rosuvastatin Oral;
--- NOTE | 2020-02-19 08:48 | RAD REPORT ---
EXAM DESCRIPTION: CT - Head Brain Wo Cont - 02/19/2020 8:14 am CLINICAL HISTORY: Syncope COMPARISON: October 2019 TECHNIQUE: Computed axial tomography of the head was obtained. IV contrast was not requested. All CT scans are performed using dose optimization technique as appropriate and may include automated exposure control or mA/KV adjustment according to patient size. FINDINGS: An intracranial bleed is not seen . The ventricles are normal in caliber. No extra-axial fluid collection is noted. Mild low-density areas within periventricular, deep and subcortical white matter likely represent isc hemic changes secondary to small vessel disease. Fluid within the sinuses/ mastoids is not seen. IMPRESSION: No acute intracranial abnormality is seen. If patient's symptoms persist MRI of the bra in would be recommended.
--- NOTE | 2020-02-19 08:57 | RAD REPORT ---
EXAM DESCRIPTION: CT - Abdomen Pelvis Wo Contrast - 02/19/2020 8:14 am CLINICAL HISTORY: Abdominal pain /vomiting COMPARISON: 2015 TECHNIQUE: Computed axial tomography of the abdomen and pelvis was obtained. IV and oral contrast we re not requested. All CT scans are performed using dose optimization technique as appropriate and may include automated exposure control or mA/KV adjustment according to patient size. FINDINGS: The evaluation of solid organs, vessels and bowel is limited secondary to the lack of con trast administration. The liver, spleen, pancreas, adrenals and kidneys appear grossly normal. Large amount stool is present throughout the colon. A catheter is present bladder. There is no evidence of diverticulitis. Atherosclerotic disease IMPRESSION: Large amount stool within colon
[2020-02-19] MEDS ORDERED: NA CHLORIDE 0.9% 1,000 ML ONE (09:11)
[2020-02-19] MEDS ORDERED: ONDANSETRON 4 MG/2 ML VIAL IV PRN (09:49)
[2020-02-19] MEDS ORDERED: ACETAMINOPHEN 500 MG TAB PO PRN (09:49)
[2020-02-19 09:54] LABS: Urine Blood NEGATIVE (NEG); Urine Glucose NEGATIVE (NEG); Urine Protein NEGATIVE (NEG); Urine Specific Gravity 1.015 (1.005-1.030); Urine pH 6.5 (5.0-7.0)
[2020-02-19] MEDS ORDERED: D5W 1,000 ML IV SCH (10:00)
[2020-02-19 11:39] VITALS: BMI 21.6
[2020-02-19] MEDS ORDERED: GABAPENTIN 300 MG CAP ONE (12:35)
--- NOTE | 2020-02-19 13:21 | ECHO ---
HEIGHT: 5 ft 11 in WEIGHT: 155 lb 0 oz DATE OF STUDY: 02/19/[address]: Shannan Alexis MD 2-DIMENSIONAL: YES M.MODE: YES DOPPLER: YES COLOR FLOW: YES TDS: NO PORTABLE: NO DEFINITY: NO BUBBLE STUDY: NO DIAGNOSIS: SYNCOPE CARDIAC HISTORY: CATHERIZATION: SURGERY: PROSTHETIC VALVE: PACEMAKER: MEASUREMENTS (cm) DIASTOLIC (NORMALS) SYSTOLIC (NORMALS) IVSd 0.9 (0.6-1.2) LA Diam (1.9-4.0) LVEF 71% LVIDd 4.2 (3.5-5.7) LVIDs 2.5 (2.0-3.5) %FS 40% LVPWd 1.0 (0.6-1.2) Ao Diam 3.1 (2.0-3.7) 2 DIMENSIONAL ASSESSMENT: RIGHT ATRIUM: NORMAL LEFT ATRIUM: NORMAL RIGHT VENTRICLE: NORMAL LEFT VENTRICLE: NORMAL TRICUSPID VALVE: NORMAL MITRAL VALVE: NORMAL PULMONIC VALVE: NORMAL AORTIC VALVE: NORMAL PERICARDIAL EFFUSION: NONE AORTIC ROOT: NORMAL LEFT VENTRICULAR WALL MOTION: NORMAL DOPPLER/COLOR FLOW: NORMAL COMMENTS: NORMAL LEFT VENTRICULAR EJECTION FRACTION 55-60%. NORMAL WALL MOTION. MILD TRICUSPID REGURGITATION. TECHNOLOGIST: Ronald MAGANA
--- NOTE | 2020-02-19 15:06 | RAD REPORT ---
EXAM DESCRIPTION: - CP - 02/19/2020 2:49 pm CLINICAL HISTORY: Syncope Headache, drowsiness COMPARISON: Carotid Artery Bilateral dated 10/24/2019 TECHNIQUE: Real-time sonographic evaluation of both carotid systems was performed. Doppler interroga tion was performed with waveform tracing bilaterally. FINDINGS: Normal high resistance waveforms are noted in both external carotid arteries. The common c arotid arteries and internal carotid arteries show normal low resistance waveforms. Mild to moderate hard plaque is seen in both proximal internal carotid arteries and carotid bulbs. Vi sually, there is evidence of left carotid bulb stenosis estimated at 60-70% based on NASCET criteria with mild elevation of peak systolic velocity measurements on the left. No significant right-sided ca rotid stenosis. Antegrade flow seen in both vertebral arteries. IMPRESSION: Mild to moderate hard plaquing and intimal thickening is seen both proximal internal car otid arteries, slightly greater on the left. 60-70% stenosis is suspected proximal left internal carotid artery based on NASCET criteria.
[2020-02-19 16:54] VITALS: O2SAT 96
[2020-02-19] MEDS ORDERED: MIRTAZAPINE 15 MG TAB PO SCH (23:00)
[2020-02-19] MEDS: GABAPENTIN 300 MG CAP PO SCH (23:58)
[2020-02-20 04:13] LABS: Hematocrit 30.1 % (39.6-49.0); Lymphocytes % 12.6 % (15.3-44.8); MPV 8.5 fL (7.6-11.3); RBC Red Blood Cell Count 3.26 M/uL (4.33-5.43)
[2020-02-20 04:36] LABS: Albumin 3.3 g/dL (3.4-5.0); Bilirubin Total 0.4 mg/dL (0.2-1.0); Magnesium 2.2 mg/dL (1.8-2.4); Potassium 5.5 mmol/L (3.5-5.1); Protein, Total 6.7 g/dL (6.4-8.2)
[2020-02-20] MEDS: GABAPENTIN 300 MG CAP PO SCH ×2 (05:52→13:01)
[2020-02-20] MEDS ORDERED: LEVOTHYROXINE SOD 0.075 MG TAB PO SCH (06:00)
[2020-02-20] MEDS ORDERED: LIOTHYRONINE SOD 5 MCG TAB PO SCH (06:00)
[2020-02-20] MEDS ORDERED: PANTOPRAZOLE 40MG TABLET PO SCH (06:00)
[2020-02-20] MEDS ORDERED: INSULIN GLARGINE 100 UNITS/ML SQ ONE (08:29)
[2020-02-20] MEDS ORDERED: GLUCAGON 1 MG/VIAL IM PRN (08:29)
[2020-02-20] MEDS ORDERED: D50W 25 GM/50 ML SYRINGE/VIAL IV PRN (08:29)
[2020-02-20] MEDS ORDERED: CLOPIDOGREL 75 MG TABLET PO SCH (09:00)
[2020-02-20] MEDS ORDERED: ENOXAPARIN 40 MG/0.4 ML SQ SCH (09:00)
[2020-02-20] MEDS ORDERED: HYDROMORPHONE HCL 0.5 MG/0.5 ML INJ IV PRN (09:05)
[2020-02-20] MEDS ORDERED: AMITRIPTYLINE 50 MG TAB PO ONE (09:05)
[2020-02-20] MEDS: MIDODRINE HCL 5 MG TABLET PO SCH ×3 (09:20→16:09)
--- NOTE | 2020-02-20 10:13 | P.HP ---
Certification for Inpatient Patient admitted to: Inpatient With expected LOS: >2 Midnights Patient will require the following post-hospital care: None Practitioner: I am a practitioner with admitting privileges, knowledge of patient current condition, hospital course, and medical plan of care. Services: Services provided to patient in accordance with Admission requirements found in Title 42 Section 412.3 of the Code of Federal Regulations Patient History Date of Service: 02/19/20 Reason for admission: ACUTE RENAL INSUFFICIENCY; SYNCOPE AND COLLAPSE; SEIZURE DISORDER History of Present Illness: PATIENT IS A 69-YEAR-OLD GENTLEMAN WHO IS WELL KNOWN ME FROM PRIOR ADMISSIONS WHO COMES INTO THE HOSPITAL AFTER HAVING A SYNCOPAL EPISODE IN COLLAPSING. HE IS NOT REALLY ABLE TO REMEMBER WHAT EXACTLY HAPPENED TO HIM. HE HAS NOT HAD ANYTHING LIKE THIS HAPPEN IN QUITE A WHILE. HE IS NOT SURE IF HE HAD A SEIZURE BUT HE HAD INCONTINENCE STOOL AND URINE. HE WILL BE ADMITTED TO THE HOSPITAL FOR FURTHER EVALUATION. THE WAS ALSO CONCERN THAT HE WAS HYPOGLYCEMIC ON THE SCENE. BUT HIS BLOOD SUGARS HER STABLE AT THIS TIME. HE ALSO HAS ACUTE RENAL INSUFFICIENCY AND WILL BE ADMITTED TO THE HOSPITAL FOR HYDRATION. PATIENT BE ADMITTED FOR FURTHER WORKUP FOR MULTIPLE NUMEROUS MEDICAL ISSUES. Allergies acyclovir Adverse Reaction (Verified 11/19/19 16:49) acute renal injury meperidine Adverse Reaction (Verified 11/19/19 16:49) unable to recall reaction vancomycin Adverse Reaction (Verified 11/19/19 16:49) acute kidney injury Home Medications: Clopidogrel Bisulfate [Plavix] 75 mg PO DAILY 02/19/20 Ferrous Sulfate 325 mg PO DAILY 02/19/20 Folic Acid 1 mg PO DAILY 02/19/20 Gabapentin 1 tab PO TID 02/19/20 Levothyroxine [Synthroid] 75 mcg PO [id number] 02/19/20 Linagliptin [Tradjenta] 5 mg PO DAILY 02/19/20 Liothyronine Sodium [Cytomel] 5 mcg PO [id number] 02/19/20 Midodrine HCl 10 mg PO TID 02/19/20 Mirtazapine 45 mg PO BEDTIME 02/19/20 Pantoprazole [Protonix Tab*] 1 tab PO DAILY 02/19/20 Trazodone [Desyrel] 150 mg PO BEDTIME 02/19/20 Insulin Aspart [Novolog] 0 unit SQ AC 02/20/20 Insulin Degludec [Tresiba] 26 unit SQ DAILY WITH BREAKFAST 02/20/20 - Past Medical/Surgical History Has patient received pneumonia vaccine in the past: Yes Diabetic: Yes -: Hx Throat CA -: HTN -: Diabetes mellitus type 2 non-insulin dependent -: GERD -: Hypothyroidism -: Hyperlipidemia -: Peripheral vascular disease, prior arterial stent -: Former tobacco use -: Chronic renal disease -: Peripheral artery disease -: Shingles, trigeminal neuralgia -: Constipation -: bilateral cataract removal -: Toe amputation, Left Foot:2 -: Arterial stent to the left lower extremity -: Index Finger left hand, partial amputation Psychosocial/ Personal History: - Family History Father Medical History: Heart disease Mother Medical History: Hypertension Brother Medical History: Hypertension Sister Medical History: Hypertension, Stroke - Social History Smoking Status: Former smoker Alcohol use: No CD- Drugs: No Caffeine use: Yes Place of Residence: Home Review of Systems 10-point ROS is otherwise unremarkable Physical Examination - Vital Signs Temperature: 97.2 F Blood Pressure: 144/65 Pulse: 82 Respirations: 16 Pulse Ox (%): 97 - Physical Exam General: Alert, In no apparent distress, Oriented x3 HEENT: Atraumatic, PERRLA, Mucous membr. moist/pink, EOMI, Sclerae nonicteric Neck: Supple, 2+ carotid pulse no bruit, No LAD, Without JVD or thyroid abnormality Respiratory: Clear to auscultation bilaterally, Normal air movement Cardiovascular: Regular rate/rhythm, Normal S1 S2, Systolic murmur Gastrointestinal: Normal bowel sounds, Soft and benign, Non-distended, No tenderness Musculoskeletal: No clubbing, No swelling, No tenderness Integumentary: No rashes Neurological: Normal gait, Normal speech, Normal strength at 5/5 x4 extr, Normal tone, Sensation intact, Cranial nerves 3-12 intact, Normal affect Lymphatics: No axilla or inguinal lymphadenopathy Assessment & Plan - Problems (Diagnosis) (1) Syncope and collapse Current Visit: Yes Status: Acute (2) Seizure disorder Current Visit: Yes Status: Acute (3) Urinary and bowel incontinence Current Visit: Yes Status: Acute (4) Acute renal insufficiency Current Visit: Yes Status: Acute (5) Acute worsening of stage 3 chronic kidney disease Current Visit: No Status: Acute (6) Diabetes mellitus, type II, insulin dependent Onset Date: 11/01/15 Current Visit: No Status: Acute (7) Herpetic lesions of face Current Visit: No Status: Acute - Plan PLAN: 1. CAROTID DOPPLER AND ECHOCARDIOGRAM 2. MAY NEED MRI TO FURTHER EVALUATE CAROTID ARTERY 3. IV HYDRATION AND MONITOR RENAL FUNCTION 4. EEG 5. RENAL DOPPLER 6. MONITOR BLOOD SUGARS CLOSELY 7. GI AND DVT PROPHYLAXIS Discharge Plan: Home Plan to discharge in: Greater than 2 days - Advance Directives Does patient have a Living Will: No Does patient have a Durable POA for Healthcare: Yes - Code Status/Comfort Care Code Status Assessed: Yes Code Status: Full Code Critical Care: No Time Spent Managing PTS Care (In Minutes): 45
[2020-02-20] MEDS ORDERED: INSULIN 70/30 100 UNITS/ML SQ ONE (12:09)
--- NOTE | 2020-02-20 14:50 | EEG ---
CHART: [id number] TEST ID#: [id number] DATE OF STUDY: 02/19/2020 THE EEG WAS RECORDED PORTABLE IN THE EMERGENCY ROOM ON A 17 CHANNEL MACHINE. ELECTRODES WERE APPLIED IN THE USUAL MANNER USING THE INTERNATIONAL 10-20 SYSTEM. THE WAKING BACKGROUND RHYTHM IN THIS RECORD CONSISTS OF FAIRLY WELL DEVELOPED AND FAIRLY WELL ORGANIZED WAVES OF 8.5 HZ., MAXIMAL IN THE POSTERIOR HEAD REGIONS WHICH ATTENUATE NORMALLY WITH EYE OPENING. LOW-VOLTAGE 18-22 HZ ACTIVITY IS EXPRESSED IN THE FRONTAL REGIONS. THERE ARE NO FOCAL OR LATERALIZING FEATURES. NO EPILEPTIFORM ACTIVITY APPEARS. SLEEP OCCURRED NATURALLY. IN ADDITION NORMAL SLEEP PATTERNS ARE PRESENT. HYPERVENTILATION WAS NOT PERFORMED. PHOTIC STIMULATION PRODUCED NO DRIVING BILATERALLY. IMPRESSION: NORMAL EEG FOR THE AGE OF THE PATIENT IN [place], DROWSINESS AND SLEEP.
[2020-02-20 16:00] VITALS: BP 132/60; TEMP 97.1
--- NOTE | 2020-02-20 16:04 | P.DS ---
Discharge Date: 02/20/20 Disposition: ROUTINE DISCHARGE Discharge Condition: GOOD Reason for Admission: ACUTE RENAL INSUFFICIENCY; SYNCOPE AND COLLAPSE; SEIZURE DISORDER - Problems (1) Syncope and collapse Status: Acute (2) Seizure disorder Status: Acute (3) Urinary and bowel incontinence Status: Acute (4) Acute renal insufficiency Status: Acute (5) Acute worsening of stage 3 chronic kidney disease Status: Acute (6) Diabetes mellitus, type II, insulin dependent Onset Date: 11/01/15 Status: Acute (7) Herpetic lesions of face Status: Acute Brief History of Present Illness: PATIENT IS A 69-YEAR-OLD GENTLEMAN WHO IS WELL KNOWN ME FROM PRIOR ADMISSIONS WHO COMES INTO THE HOSPITAL AFTER HAVING A SYNCOPAL EPISODE IN COLLAPSING. HE IS NOT REALLY ABLE TO REMEMBER WHAT EXACTLY HAPPENED TO HIM. HE HAS NOT HAD ANYTHING LIKE THIS HAPPEN IN QUITE A WHILE. HE IS NOT SURE IF HE HAD A SEIZURE BUT HE HAD INCONTINENCE STOOL AND URINE. HE WILL BE ADMITTED TO THE HOSPITAL FOR FURTHER EVALUATION. THE WAS ALSO CONCERN THAT HE WAS HYPOGLYCEMIC ON THE SCENE. BUT HIS BLOOD SUGARS HER STABLE AT THIS TIME. HE ALSO HAS ACUTE RENAL INSUFFICIENCY AND WILL BE ADMITTED TO THE HOSPITAL FOR HYDRATION. PATIENT BE ADMITTED FOR FURTHER WORKUP FOR MULTIPLE NUMEROUS MEDICAL ISSUES. Hospital Course: PATIENT IS CLINICALLY DOING WELL. PATIENT IS FEELING BETTER. PATIENT'S SYMPTOMS HAVE IMPROVED. AT THIS TIME PATIENT IS STABLE FOR DISCHARGE WITH OUTPATIENT FOLLOW-UP. ECHOCARDIOGRAM AND CAROTID DOPPLER HAVE BEEN REVIEWED. PATIENT WILL NEED OUTPATIENT IMAGING STUDIES TO FURTHER EVALUATE CAROTIDS. RADIOLOGY DID NOT WANT TO DO MRA WHILE IN THE HOSPITAL. WE HAD ORDERED IT WITH A MAID HIS REPEAT A CAROTID DOPPLER WHICH WAS DONE A FEW MONTHS AGO. WE ADVISED THE PATIENT TO GET THIS DONE AN OUTPATIENT AND FOLLOW UP WITH CARDIOLOGY FOR POSSIBLE FURTHER INTERVENTION. AT THIS TIME, PATIENT IS STABLE FOR DISCHARGE HOME. Vital Signs/Physical Exam: Temp Pulse Resp BP Pulse Ox 97.1 F 72 16 132/60 98 02/20/20 15:59 02/20/20 15:59 02/20/20 15:59 02/20/20 15:59 02/20/20 15:59 General: Alert, In no apparent distress, Oriented x3 Laboratory Data at Discharge: WBC 8.2 K/uL (4.3-10.9) D 02/20/20 03:55 Hgb 9.9 g/dL (13.6-17.9) L 02/20/20 03:55 Hct 30.1 % (39.6-49.0) L 02/20/20 03:55 Plt Count 176 K/uL (152-406) D 02/20/20 03:55 PT 10.5 SECONDS (9.5-12.5) 02/19/20 07:55 INR 0.89 02/19/20 07:55 APTT 26.4 SECONDS (24.3-36.9) 02/19/20 07:55 Sodium 136 mmol/L (136-145) 02/20/20 03:55 Potassium 5.5 mmol/L (3.5-5.1) H 02/20/20 03:55 BUN 29 mg/dL (7-18) H 02/20/20 03:55 Creatinine 1.41 mg/dL (0.55-1.3) H 02/20/20 03:55 Glucose 308 mg/dL (74-106) H 02/20/20 03:55 Phosphorus 3.0 mg/dL (2.5-4.9) 02/20/20 03:55 Magnesium 2.2 mg/dL (1.8-2.4) 02/20/20 03:55 Total Bilirubin 0.4 mg/dL (0.2-1.0) 02/20/20 03:55 AST 12 U/L (15-37) L 02/20/20 03:55 ALT 16 U/L (12-78) 02/20/20 03:55 Alkaline Phosphatase 91 U/L (45-117) 02/20/20 03:55 Lipase 87 U/L (73-393) 02/19/20 07:55 Home Medications: Clopidogrel Bisulfate [Plavix] 75 mg PO DAILY 02/19/20 Ferrous Sulfate 325 mg PO DAILY 02/19/20 Folic Acid 1 mg PO DAILY 02/19/20 Gabapentin 1 tab PO TID 02/19/20 Levothyroxine [Synthroid*] 75 mcg PO [id number] 02/19/20 Linagliptin [Tradjenta] 5 mg PO DAILY 02/19/20 Liothyronine Sodium [Cytomel] 5 mcg PO [id number] 02/19/20 Midodrine HCl 10 mg PO TID 02/19/20 Mirtazapine 45 mg PO BEDTIME 08/27/20 Pantoprazole [Protonix Tab*] 1 tab PO DAILY 02/19/20 Trazodone [Desyrel*] 150 mg PO BEDTIME 02/19/20 Insulin Aspart [Novolog] 0 unit SQ AC 02/20/20 Insulin Degludec [Tresiba] 26 unit SQ DAILY WITH BREAKFAST 02/20/20 Patient Discharge Instructions: OK TO DC IV AND DC HOME. FOLLOW-UP WITH PRIMARY CARE PROVIDER IN 1-2 WEEKS. FOLLOW-UP WITH Neurology IN 1-2 WEEKS. RETURN TO THE ER IF symptoms worsen. CALL or TEXT DR. CHACON AT [phone] IF ANY QUESTIONS REGARDING HOSPITAL STAY. PLEASE CALL THE FLOOR AT [phone] IF ANY MEDICATION OR NURSING QUESTIONS. Diet: AHA Activity: Fall precautions Followup: Puneet Samuels MD [ASSOCIATE-ACTIVE - CAN ADMIT] - Time spent managing pt's care (in minutes): 25
[2020-02-20] MEDS ORDERED: INSULIN GLARGINE 100 UNITS/ML SQ SCH (17:00)
[2020-02-20] MEDS ORDERED: TRAZODONE 150 MG TAB PO SCH (21:00)
--- NOTE | 2020-02-21 05:50 | EKG ---
Test Date: 2020-02-19 Test Time: 08:27:16 Mission Support Specialist: SHALA MEASUREMENT RESULTS: Intervals: Rate: 70 NC: 170 QRSD: 66 QT: 390 QTc: 421 Bells: P: 63 NC: 170 QRS: 66 T: 67 INTERPRETIVE STATEMENTS: Normal sinus rhythm Low voltage QRS Borderline ECG Compared to ECG 11/11/2019 14:28:52 Low QRS voltage now present Myocardial infarct finding no longer present Electronically Signed On 02-21-20 05:45:42 CDT by Scout Arrieta
[2020-02-21] MEDS ORDERED: INSULIN GLARGINE 100 UNITS/ML SQ ONE (08:29)
== END 2020-02-20 17:01 | disposition home or self-care (01) ==
LOC: ER 07:08 → INTOOBSV 09:49 → ERHOLD 09:49 → 2ND 14:59
PROVIDERS: ADMIT Hospitalist; ATTEND Hospitalist
DX: R55 Syncope and collapse (principal); G40.909 Epilepsy, unspecified, not intractable, without status epilepticus; R15.9 Full incontinence of feces; R32 Unspecified urinary incontinence; E11.22 Type 2 diabetes mellitus with diabetic chronic kidney disease; N28.9 Disorder of kidney and ureter, unspecified; I12.9 Hypertensive chronic kidney disease with stage 1 through stage 4 chronic kidney disease, or unspecified chronic kidney disease; N18.3 Chronic kidney disease, stage 3 (moderate); B00.89 Other herpesviral infection; T68.XXXA Hypothermia, initial encounter; X58.XXXA Exposure to other specified factors, initial encounter; Z20.828 Contact with and (suspected) exposure to other viral communicable diseases; I65.23 Occlusion and stenosis of bilateral carotid arteries; I07.1 Rheumatic tricuspid insufficiency; E11.51 Type 2 diabetes mellitus with diabetic peripheral angiopathy without gangrene; K21.9 Gastro-esophageal reflux disease without esophagitis; E03.9 Hypothyroidism, unspecified; E78.5 Hyperlipidemia, unspecified; Z79.4 Long term (current) use of insulin; Z79.02 Long term (current) use of antithrombotics/antiplatelets; Z79.899 Other long term (current) drug therapy; Z87.891 Personal history of nicotine dependence
CPT/HCPCS: 96361; 95816; 93005; 93306; 87040 ×2; 85025 ×2; 80048; 36415; 83735 ×2; 82550; 84100; 85610; 82947 ×7; 80076; 83605 ×3; 85730; 81003; 84484; 83690; 80053; 84145; 83880; 70450; 74176; 93880; 51702; 96360; 99285; U0003; J1650; J7040; J7030; J2405; G0378 ×3; J1815

== ENCOUNTER 2020-04-30 12:50 | Inpatient (IN) | payer OTHER ==
--- OUTSIDE RECORDS SUMMARY | 2020-04-30 13:02 | XMS REPORT | Continuity of Care Document ---
:1950 Author Organization [facility] t Address [address] [place] [address] Dr. Phillips [address] [place] [id number] Care Team Providers Name Role Phone Unavailable Unavailable Unavailable Problems This patient has no known problems. Allergies, Adverse Reactions, Alerts This patient has no known allergies or adverse reactions. Medications This patient has no known medications. Procedures This patient has no known procedures. Results This patient has no known results.
[2020-04-30] MEDS ORDERED: INSULIN -REGULAR HUMAN 50 UNIT/0.5 ML ML ONE (13:30)
[2020-04-30 13:31] LABS: Protime INR 0.89
--- NOTE | 2020-04-30 13:38 | RAD REPORT ---
EXAM DESCRIPTION: CT - Head C Spine Mpr Wo Con - 04/30/2020 1:24 pm CLINICAL HISTORY: Head and neck injury status post fall. Head and neck pain. Syncope COMPARISON: None. TECHNIQUE: Computed axial tomography of the head and cervical spine was obtained. Sagittal and coronal reconstruction was performed. All CT scans are performed using dose optimization technique as appropriate and may include automated exposure control or mA/KV adjustment according to patient size. FINDINGS: Mild low-density areas within periventricular, deep and subcortical white matter likely is chemic changes secondary to small vessel disease An intracranial bleed is not seen. The ventricles are normal in caliber. An extra-axial fluid collect ion is not noted.Fluid within the visualized sinuses and mastoids is not seen A cervical fracture is not visualized. No dislocation is noted. Spondylosis involves the cervical spi ne. Mild posterior subluxation C2 5 on C6 with osteophytes subchondral sclerosis. IMPRESSION: No acute intracranial abnormality is seen. A cervical fracture is not visualized. If the patient continues to have symptoms to suggest intracra nial /spinal cord/ spinal canal pathology then MRI would be recommended
[2020-04-30 13:41] LABS: Absolute Lymphocytes (CBC) 0.2 K/uL (0.7-4.9); Basophils % 0.7 % (0-1.3); Hematocrit 31.7 % (39.6-49.0); Lymphocytes % 1.5 % (15.3-44.8); MPV 9.3 fL (7.6-11.3); RBC Red Blood Cell Count 3.22 M/uL (4.33-5.43)
[2020-04-30 14:02] LABS: Albumin 3.4 g/dL (3.4-5.0); Bilirubin Direct 0.2 mg/dL (0-0.2); Bilirubin Total 0.7 mg/dL (0.2-1.0); Protein, Total 7.3 g/dL (6.4-8.2); Troponin (Emerg Dept Use Only) 0.28 ng/mL (0.0-0.045)
--- NOTE | 2020-04-30 14:17 | RAD REPORT ---
EXAM DESCRIPTION: Lanny Single View04/30/2020 1:53 pm CLINICAL HISTORY: Hypertension/syncope COMPARISON: October 2019 FINDINGS: Mild bilateral pulmonary opacities are suspected The heart is normal size IMPRESSION: Mild bilateral pulmonary opacities may represent pneumonia, pneumonitis or lung nodules
[2020-04-30] MEDS ORDERED: GLUCAGON 1 MG/VIAL IM PRN (14:22)
[2020-04-30] MEDS ORDERED: D50W 25 GM/50 ML SYRINGE/VIAL IV PRN (14:22)
[2020-04-30] MEDS ORDERED: INSULIN -REGULAR HUMAN 100 UNIT in NA CHLORIDE 0.9% 100 ML IV SCH (14:30)
[2020-04-30] MEDS ORDERED: NA CHLORIDE 0.9% 1,000 ML ONE (14:33)
[2020-04-30] MEDS ORDERED: THIAMINE 200 MG/2 ML INJ ONE (14:33)
[2020-04-30] MEDS ORDERED: NACHLORIDE 0.45% 1,000 ML IV ONE ×3 (14:33→20:43)
[2020-04-30] MEDS ORDERED: SODIUM BICARB 50 MEQ/50ML VIAL ONE (14:34)
[2020-04-30 14:35] LABS: Arterial Blood Carboxyhemoglob 2.5 % (0-1.5); Blood Gas Oxyhemoglobin 94.2 % (94-97); Blood O2 Saturation 97.9 % (92-98.5)
[2020-04-30 14:36] LABS: Blood Morphology Comment NOT SEEN (NOT SEEN); Platelet Estimate ADEQ
--- NOTE | 2020-04-30 14:43 | EDPHYS ---
Physician Documentation [facility] Name: Scott Mederos Age: 70 yrs Sex: Male : 1950 Arrival Date: 04/30/2020 Time: 13:01 Bed 18 Private MD: ED Physician Henry Henriquez HPI: 04/30 14:16 This 70 yrs old Male presents to ER via EMS with complaints of Syncope, snw Dizziness, Vomiting. 14:16 The patient has experienced syncope, collapsed. Onset: The symptoms/episode snw began/occurred suddenly. Duration: This was a single episode. Context: occurred at home, occurred while the patient was standing, Just prior to the episode the patient experienced lightheadedness. Associated signs and symptoms: Pertinent positives: dizziness, vomiting. Current symptoms: polydipsia. The patient has experienced similar episodes in the past. It is unknown whether or not the patient has recently seen a physician. Historical: - Allergies: 13:04 Acyclovir; sv 13:04 Demerol; sv 13:04 Meperidine; sv 13:04 Vancomycin; sv - Home Meds: 13:21 gabapentin 600 mg Oral tab 3 times per day [Active]; Tradjenta 5 mg Oral tab once daily sv [Active]; Protonix 40 mg Oral TbEC once daily [Active]; trazodone 150 mg Oral tab nightly [Active]; Plavix 75 mg Oral tab once daily [Active]; folic acid 1 mg Oral tab once daily [Active]; midodrine 10 mg Oral tab 3 times per day [Active]; mirtazapine 45 mg Oral tab once daily [Active]; liothyronine 5 mcg Oral tab once daily [Active]; levothyroxine 75 mcg tab once daily [Active]; - PMHx: 13:04 Diabetes - IDDM; Neck/Throat Cancer; GERD; High Cholesterol; Hypertension; hypotension; sv Hypothyroidism; Renal Disease; - Immunization history:: Adult Immunizations unknown. - Social history:: Smoking status: Patient denies any tobacco usage or history of. ROS: 14:15 Constitutional: Negative for fever, chills, and weight loss, Eyes: Negative for injury, snw pain, redness, and discharge, ENT: Negative for injury, pain, and discharge, Neck: Negative for injury, pain, and swelling, Cardiovascular: Negative for chest pain, palpitations, and edema, Respiratory: Negative for shortness of breath, cough, wheezing, and pleuritic chest pain, Back: Negative for injury and pain, : Negative for injury, bleeding, discharge, and swelling, MS/Extremity: Negative for injury and deformity, Skin: Negative for injury, rash, and discoloration, Psych: Negative for depression, anxiety, suicide ideation, homicidal ideation, and hallucinations. 14:15 Abdomen/GI: Positive for vomiting, x3 and severe polydipsia. Exam: 14:04 Head/Face: Normocephalic, atraumatic. Eyes: Pupils equal round and reactive to light, snw extra-ocular motions intact. Lids and lashes normal. Conjunctiva and sclera are non-icteric and not injected. Cornea within normal limits. Periorbital areas with no swelling, redness, or edema. 14:04 Neck: Trachea midline, no thyromegaly or masses palpated, and no cervical lymphadenopathy. Supple, full range of motion without nuchal rigidity, or vertebral point tenderness. No Meningismus. Chest/axilla: Normal chest wall appearance and motion. Nontender with no deformity. No lesions are appreciated. 14:04 Respiratory: Lungs have equal breath sounds bilaterally, clear to auscultation and percussion. No rales, rhonchi or wheezes noted. No increased work of breathing, no retractions or nasal flaring. Abdomen/GI: Soft, non-tender, with normal bowel sounds. No distension or tympany. No guarding or rebound. No evidence of tenderness throughout. Back: No spinal tenderness. No costovertebral tenderness. Full range of motion. MS/ Extremity: Pulses equal, no cyanosis. Neurovascular intact. Full, normal range of motion. Neuro: Awake and alert, GCS 15, oriented to person, place, time, and situation. Cranial nerves II-XII grossly intact. Motor strength 5/5 in all extremities. Sensory grossly intact. Cerebellar exam normal. Normal gait. Psych: Awake, alert, with orientation to person, place and time. Behavior, mood, and affect are within normal limits. 14:04 Constitutional: The patient appears awake, listless, pale, uncomfortable. 14:04 ENT: External ear(s): Nose: Mouth: Lips: cracked, Oral mucosa: dry, noted to have obvious stomatitis, Posterior pharynx: without moisture, Voice: 14:04 Cardiovascular: Rate: tachycardic, Rhythm: regular, Pulses: no pulse deficits are appreciated, Heart sounds: normal, Edema: is not appreciated. 14:04 ECG was reviewed by the Attending Physician. 14:04 Skin: Appearance: Color: pale, Temperature: cool, Moisture: dry, petechiae, not noted, ecchymosis, not noted, scape to left medial leg, healing avulsion to left knee. 14:42 Special observations: the patient tolerates PO fluids, severe dehydration, chelitis. snw Vital Signs: 12:50 BP 122 / 75; Pulse 90; Resp 14; Temp 97; Pulse Ox 95% ; sv 13:00 BP 122 / 75; Pulse 93; Resp 14; Pulse Ox 99% ; sv 13:45 BP 82 / 56; Pulse 91; Resp 16; Pulse Ox 95% ; sv 15:00 BP 108 / 66; Pulse 91; Resp 25; Pulse Ox 100% ; sv 15:09 Weight 70 kg; sv 15:43 BP 151 / 69; Pulse 95; Resp 22; Pulse Ox 100% ; sv 16:00 BP 136 / 68; Pulse 86; Resp 23; Temp 97.2; Pulse Ox 100% ; sv 16:45 BP 100 / 48; Pulse 73; Resp 12; Pulse Ox 100% ; sv MDM: 13:46 Patient medically screened. snw 14:39 ECG was reviewed by the Attending Physician. Data reviewed: vital signs, nurses notes. snw Data interpreted: Pulse oximetry: on room air is 95 %. Interpretation: acceptable. Counseling: I had a detailed discussion with the patient and/or guardian regarding: the historical points, exam findings, and any diagnostic results supporting the discharge/admit diagnosis, lab results, radiology results, the need for further work-up and treatment in the hospital. Physician consultation: Shannan Alexis MD was called at 14:28, was contacted at 14:28, regarding admission, to the ICU. 04/30 13:05 Order name: Basic Metabolic Panel sv 04/30 13:05 Order name: CBC with Diff sv 04/30 13:05 Order name: LFT's sv 04/30 13:05 Order name: Magnesium; Complete Time: 14:12 sv 04/30 13:05 Order name: NT PRO-BNP; Complete Time: 14:12 sv 04/30 13:05 Order name: PT-INR; Complete Time: 13:48 sv 04/30 13:05 Order name: Troponin (emerg Dept Use Only); Complete Time: 14:12 sv 04/30 13:06 Order name: Basic Metabolic Panel; Complete Time: 14:12 EDMS 04/30 13:06 Order name: CBC with Automated Diff; Complete Time: 14:52 EDMS 04/30 13:06 Order name: Liver (Hepatic) Function; Complete Time: 14:12 EDMS 04/30 13:22 Order name: Glucose, Ancillary Testing; Complete Time: 13:30 EDMS 04/30 13:31 Order name: Blood Culture Adult (2) snw 04/30 13:46 Order name: Manual Differential; Complete Time: 14:52 EDMS 04/30 14:14 Order name: ABG; Complete Time: 14:57 eb 04/30 14:28 Order name: COVID-19 snw 04/30 15:15 Order name: Lactate; Complete Time: 16:03 sv 04/30 16:00 Order name: Urine Dipstick--Ancillary (enter results); Complete Time: 16:45 eb 04/30 16:05 Order name: Chem 7: at 1700; Complete Time: 16:48 snw 04/30 16:23 Order name: Glucose, Ancillary Testing; Complete Time: 16:24 EDMS 04/30 16:53 Order name: SARS-COV-2 RT PCR; Complete Time: 17:19 EDMS 04/30 17:01 Order name: Acetone Level EDIL 04/30 17:01 Order name: Acetone Level EDIL 04/30 17:01 Order name: Acetone Level EDMS 04/30 17:01 Order name: Acetone Level EDMS 04/30 17:01 Order name: Acetone Level EDMS 04/30 17:01 Order name: Basic Metabolic Panel EDMS 04/30 17:01 Order name: Basic Metabolic Panel EDMS 04/30 13:05 Order name: XRAY Chest (1 view); Complete Time: 14:21 sv 04/30 13:05 Order name: CT Head C Spine; Complete Time: 13:48 sv 04/30 17:01 Order name: Basic Metabolic Panel EDMS 04/30 17:01 Order name: Basic Metabolic Panel EDMS 04/30 17:01 Order name: Basic Metabolic Panel EDMS 04/30 17:01 Order name: Calcium Level EDMS 04/30 17:01 Order name: Calcium Level EDMS 04/30 17:01 Order name: Calcium Level EDMS 04/30 17:01 Order name: Calcium Level EDMS 04/30 17:01 Order name: CBC with Automated Diff EDMS 04/30 17:01 Order name: CBC with Automated Diff EDMS 04/30 17:01 Order name: CBC with Automated Diff EDMS 04/30 17:01 Order name: CBC with Automated Diff EDMS 04/30 17:01 Order name: Magnesium EDMS 04/30 17:01 Order name: Magnesium EDMS 04/30 17:01 Order name: Magnesium EDMS 04/30 17:01 Order name: Magnesium EDMS 04/30 17:01 Order name: Phosphorus EDMS 04/30 17:01 Order name: Phosphorus EDMS 04/30 17:01 Order name: Phosphorus EDMS 04/30 17:01 Order name: Phosphorus EDMS 04/30 13:05 Order name: EKG; Complete Time: 13:06 sv 04/30 13:05 Order name: Cardiac monitoring; Complete Time: 13:13 sv 04/30 13:05 Order name: EKG - Nurse/Tech; Complete Time: 13:46 sv 04/30 13:05 Order name: IV Saline Lock; Complete Time: 13:13 sv 04/30 13:05 Order name: Labs collected and sent; Complete Time: 13:13 sv 04/30 13:05 Order name: O2 Per Protocol; Complete Time: 13:13 sv 04/30 13:05 Order name: O2 Sat Monitoring; Complete Time: 13:13 sv 04/30 13:06 Order name: Blood Glucose Level; Complete Time: 13:14 sv 04/30 13:51 Order name: Misc. Order: obtain blood and urine cultures prior to abx; Complete Time: snw 15:55 04/30 17:00 Order name: CONS Pharmacy Consult EDMS Administered Medications: 13:38 Drug: Insulin Regular Human 10 units {Co-Signature: viviane (Jennyfer Alvarado RN).} Route: IVP; sv Site: right antecubital; 14:00 Follow up: Response: No adverse reaction sv 18:51 Follow up: Response: No adverse reaction; Blood sugar is lowered sv 15:11 Drug: NS 0.9% 1000 ml Route: IV; Rate: 1 bolus; Site: right forearm; sv 15:11 Follow up: Response: No adverse reaction; IV Status: Completed infusion; IV Intake: sv 1000ml 15:11 Drug: NS 0.45 % 1000 ml Route: IV; Rate: 200 ml/hr; Site: right forearm; sv 17:15 Follow up: Response: No adverse reaction; IV Status: Infusion continued upon admission sv 15:11 Drug: Thiamine 100 mg Route: IV; Rate: bolus; Site: right forearm; sv 15:11 Drug: Insulin Drip - (Insulin Regular Human 100 units, NS 0.9% 100 ml) {Co-Signature: sv ll1 (Luke Holden RN).} Route: IV; Rate: calculated rate; Site: right forearm; 17:08 Follow up: Response: No adverse reaction; Rate change 5 calculated rate sv 17:15 Follow up: Response: No adverse reaction; IV Status: Infusion continued upon admission sv 15:11 Drug: Sodium Bicarbonate 1 amp Route: IVP; Site: right forearm; sv 16:00 Follow up: Response: No adverse reaction sv 15:11 Drug: Sodium Bicarbonate 1 amp Route: IVP; Site: right forearm; sv 16:00 Follow up: Response: No adverse reaction sv 15:30 Drug: foLIC Acid 1 mg Route: IVPB; Site: right forearm; sv 15:31 Follow up: Response: No adverse reaction; IV Status: Completed infusion sv 15:30 Drug: Ativan 0.5 mg Route: IVP; Site: right forearm; sv 16:00 Follow up: Response: No adverse reaction sv 16:15 Drug: Rocephin 2 grams Route: IV; Rate: calculated rate; Site: right forearm; sv 16:20 Follow up: Response: No adverse reaction; IV Status: Completed infusion; IV Intake: 20mlsv 16:15 Drug: NS 0.45 % 1000 ml Route: IV; Rate: 200 ml/hr; Site: right forearm; sv 17:15 Follow up: Response: No adverse reaction; IV Status: Infusion continued upon admission sv Point of Care Testin:55 HIGH sv Ranges: Critical Glucose Levels:Adult <50 mg/dl or >400 mg/dl <40 mg/dl or >180 mg/dl Disposition: 04/30/20 14:42 Hospitalization ordered by Shannan Alexis for Inpatient Admission. Preliminary diagnosis are Syncope and collapse, Diabetes mellitus due to underlying condition with ketoacidosis without coma, LORA, Pneumonia, unspecified organism, Anemia in other chronic diseases classified elsewhere, Sepsis, unspecified organism. - Bed requested for Intensive Care Unit. - Status is Inpatient Admission. eb - Condition is Fair. - Problem is new. - Symptoms are unchanged. Addendum: 05/03/2020 08:26 Co-signature as Attending Physician, Henry Henriquez MD I agree with the assessment and k dr plan of care. Signatures: Dispatcher [employer] EDMS Mirella Alexander RN RN sv Henry Henriquez MD MD [facility] Saima Quintero, [facility] Alicia Harper RN ss Luke Holden RN ll1 Corrections: (The following items were deleted from the chart) 04/30 14:43 14:42 Hospitalization Ordered by Shannan Alexis MD for Inpatient Admission. Preliminary snw diagnosis is Syncope and collapse; Diabetes mellitus due to underlying condition with ketoacidosis without coma; LORA; Pneumonia, unspecified organism. Bed requested for Intensive Care Unit. Status is Inpatient Admission. Condition is Fair. Problem is new. Symptoms are unchanged. snw 14:56 14:43 04/30/2020 14:42 Hospitalization Ordered by Shannan Alexis MD for Inpatient snw Admission. Preliminary diagnosis is Syncope and collapse; Diabetes mellitus due to underlying condition with ketoacidosis without coma; LORA; Pneumonia, unspecified organism; Anemia in other chronic diseases classified elsewhere. Bed requested for Intensive Care Unit. Status is Inpatient Admission. Condition is Fair. Problem is new. Symptoms are unchanged. snw 15:44 14:29 CORONAVIRUS ordered. EDMS EDMS 15:55 14:03 Gilliam ordered. snw sv 16:31 16:15 BASIC METABOLIC PANEL+C.LAB.BRZ ordered. EDMS EDMS 17:33 14:56 04/30/2020 14:42 Hospitalization Ordered by Shannan Alexis MD for Inpatient eb Admission. Preliminary diagnosis is Syncope and collapse; Diabetes mellitus due to underlying condition with ketoacidosis without coma; LORA; Pneumonia, unspecified organism; Anemia in other chronic diseases classified elsewhere; Sepsis, unspecified organism. Bed requested for Intensive Care Unit. Status is Inpatient Admission. Condition is Fair. Problem is new. Symptoms are unchanged. snw
--- NOTE | 2020-04-30 14:43 | ER ---
Nurse's Notes [facility] Name: Scott Mederos Age: 70 yrs Sex: Male : 1950 Arrival Date: 04/30/2020 Time: 13:01 Bed 18 Private MD: Diagnosis: Syncope and collapse;Diabetes mellitus due to underlying condition with ketoacidosis without coma;LORA;Pneumonia, unspecified organism;Anemia in other chronic diseases classified elsewhere;Sepsis, unspecified organism Presentation: 04/30 12:50 Chief complaint: EMS states: pt was at home sitting down, stood up and then had a sv syncopal episode. Pt vomited twice afterwards, felt dizzy and weak. 90% RA, placed on O2 \T\ 2L per NC. BP 128/62 HR-93. 20G R AC, Zofran 4mg IVP and NS given. Coronavirus screen: Client denies travel out of the [place] in the last 14 days. At this time, the client does not indicate any symptoms associated with coronavirus-19. Ebola Screen: No symptoms or risks identified at this time. Initial Sepsis Screen: Does the patient meet any 2 criteria? No. Patient's initial sepsis screen is negative. Does the patient have a suspected source of infection? No. Patient's initial sepsis screen is negative. Risk Assessment: Do you want to hurt yourself or someone else? Patient reports no desire to harm self or others. Onset of symptoms was April 30, 2020. 12:50 Method Of Arrival: EMS: [facility] sv 12:50 Acuity: LUIS 2 sv Triage Assessment: 12:50 General: Appears in no apparent distress. comfortable, slender, Behavior is calm, sv cooperative, appropriate for age. Pain: Complains of pain in face. Neuro: Level of Consciousness is awake, alert, obeys commands, Oriented to person, place, time, situation, Moves all extremities. Full function Speech hoarse. Reports dizziness, a syncopal episode weakness. Cardiovascular: Patient's skin is warm and dry. Pulses are palpable in right radial artery and left radial artery Rhythm is sinus rhythm. Respiratory: Airway is patent Respiratory effort is even, unlabored, Respiratory pattern is regular, symmetrical. Derm: Skin is pale. Musculoskeletal: Range of motion: intact in all extremities. Injury Description: Abrasion sustained to top of head and left knee. Historical: - Allergies: 13:04 Acyclovir; sv 13:04 Demerol; sv 13:04 Meperidine; sv 13:04 Vancomycin; sv - Home Meds: 13:21 gabapentin 600 mg Oral tab 3 times per day [Active]; Tradjenta 5 mg Oral tab once daily sv [Active]; Protonix 40 mg Oral TbEC once daily [Active]; trazodone 150 mg Oral tab nightly [Active]; Plavix 75 mg Oral tab once daily [Active]; folic acid 1 mg Oral tab once daily [Active]; midodrine 10 mg Oral tab 3 times per day [Active]; mirtazapine 45 mg Oral tab once daily [Active]; liothyronine 5 mcg Oral tab once daily [Active]; levothyroxine 75 mcg tab once daily [Active]; - PMHx: 13:04 Diabetes - IDDM; Neck/Throat Cancer; GERD; High Cholesterol; Hypertension; hypotension; sv Hypothyroidism; Renal Disease; - Immunization history:: Adult Immunizations unknown. - Social history:: Smoking status: Patient denies any tobacco usage or history of. Screenin:55 Abuse screen: Denies threats or abuse. Denies injuries from another. Nutritional sv screening: No deficits noted. Tuberculosis screening: No symptoms or risk factors identified. Fall Risk No fall in past 12 months (0 pts). No secondary diagnosis (0 pts). IV access (20 points). Ambulatory Aid- None/Bed Rest/Nurse Assist (0 pts). Gait- Normal/Bed Rest/Wheelchair (0 pts) Mental Status- Oriented to own ability (0 pts). Total Phoenix Fall Scale indicates No Risk (0-24 pts). Assessment: 13:04 Reassessment: Informed Dr Henriquez of pt's reason for visit and s/s. Ok to get a cardiac sv workup started. 13:10 Reassessment: BS read HIGH on glucometer. Informed Dr Henriquez, medication order sv received. See AUG. 13:38 Reassessment: Pt back from CT. sv 15:11 Reassessment: Patient appears in no apparent distress at this time. No changes from sv previously documented assessment. Patient and/or family updated on plan of care and expected duration. Pain level reassessed. Patient is alert, oriented x 3, equal unlabored respirations, skin warm/dry/pink. 15:30 Reassessment: Patient appears in no apparent distress at this time. No changes from sv previously documented assessment. Patient and/or family updated on plan of care and expected duration. Pain level reassessed. Patient is alert, oriented x 3, equal unlabored respirations, skin warm/dry/pink. 16:15 Reassessment: Patient appears in no apparent distress at this time. Pt asleep at this sv time. 17:15 Reassessment: Patient appears in no apparent distress at this time. Patient and/or sv family updated on plan of care and expected duration. Pain level reassessed. Patient is alert, oriented x 3, equal unlabored respirations, skin warm/dry/pink. Vital Signs: 12:50 BP 122 / 75; Pulse 90; Resp 14; Temp 97; Pulse Ox 95% ; sv 13:00 BP 122 / 75; Pulse 93; Resp 14; Pulse Ox 99% ; sv 13:45 BP 82 / 56; Pulse 91; Resp 16; Pulse Ox 95% ; sv 15:00 BP 108 / 66; Pulse 91; Resp 25; Pulse Ox 100% ; sv 15:09 Weight 70 kg; sv 15:43 BP 151 / 69; Pulse 95; Resp 22; Pulse Ox 100% ; sv 16:00 BP 136 / 68; Pulse 86; Resp 23; Temp 97.2; Pulse Ox 100% ; sv 16:45 BP 100 / 48; Pulse 73; Resp 12; Pulse Ox 100% ; sv ED Course: 12:50 Maintain EMS IV. Dressing intact. Good blood return noted. Site clean \T\ dry. Gauge \T\ sv site: 20G R AC. 12:55 Patient has correct armband on for positive identification. Placed in gown. Bed in low sv position. Call light in reach. Side rails up X2. athletic monitor on. Pulse ox on. NIBP on. Door closed. Warm blanket given. Head of bed elevated. 13:01 Patient arrived in ED. sv 13:01 Mirella Alexander RN is Primary Nurse. sv 13:03 Triage completed. sv 13:05 Arm band placed on. sv 13:24 CT Head C Spine In Process Unspecified. EDMS 13:44 Saima Quintero FNP-C is [facility]. snw 13:44 Henry Henriquez MD is Attending Physician. snw 13:53 XRAY Chest (1 view) In Process Unspecified. EDMS 14:30 Inserted saline lock: 22 gauge in left hand, using aseptic technique. ,using aseptic sv technique. done by Scott data acquisition technician. 14:40 Shannan Alexis MD is Hospitalizing Provider. snw 15:10 Inserted saline lock: 20 gauge in right forearm, using aseptic technique. Blood sv collected. Flushed right forearm with 2 ml normal saline. 15:15 One-on-one care X 90 minutes. sv 15:15 Inserted saline lock: 22 gauge in right forearm, using aseptic technique. Flushed right sv forearm with 2 ml normal saline. 17:15 No provider procedures requiring assistance completed. Patient admitted, IV remains in sv place. intact. Administered Medications: 13:38 Drug: Insulin Regular Human 10 units {Co-Signature: ss (Jennyfer Alvarado RN).} Route: IVP; sv Site: right antecubital; 14:00 Follow up: Response: No adverse reaction sv 18:51 Follow up: Response: No adverse reaction; Blood sugar is lowered sv 15:11 Drug: NS 0.9% 1000 ml Route: IV; Rate: 1 bolus; Site: right forearm; sv 15:11 Follow up: Response: No adverse reaction; IV Status: Completed infusion; IV Intake: sv 1000ml 15:11 Drug: NS 0.45 % 1000 ml Route: IV; Rate: 200 ml/hr; Site: right forearm; sv 17:15 Follow up: Response: No adverse reaction; IV Status: Infusion continued upon admission sv 15:11 Drug: Thiamine 100 mg Route: IV; Rate: bolus; Site: right forearm; sv 15:11 Drug: Insulin Drip - (Insulin Regular Human 100 units, NS 0.9% 100 ml) {Co-Signature: sv ll1 (Luke Holden RN).} Route: IV; Rate: calculated rate; Site: right forearm; 17:08 Follow up: Response: No adverse reaction; Rate change 5 calculated rate sv 17:15 Follow up: Response: No adverse reaction; IV Status: Infusion continued upon admission sv 15:11 Drug: Sodium Bicarbonate 1 amp Route: IVP; Site: right forearm; sv 16:00 Follow up: Response: No adverse reaction sv 15:11 Drug: Sodium Bicarbonate 1 amp Route: IVP; Site: right forearm; sv 16:00 Follow up: Response: No adverse reaction sv 15:30 Drug: foLIC Acid 1 mg Route: IVPB; Site: right forearm; sv 15:31 Follow up: Response: No adverse reaction; IV Status: Completed infusion sv 15:30 Drug: Ativan 0.5 mg Route: IVP; Site: right forearm; sv 16:00 Follow up: Response: No adverse reaction sv 16:15 Drug: Rocephin 2 grams Route: IV; Rate: calculated rate; Site: right forearm; sv 16:20 Follow up: Response: No adverse reaction; IV Status: Completed infusion; IV Intake: 20mlsv 16:15 Drug: NS 0.45 % 1000 ml Route: IV; Rate: 200 ml/hr; Site: right forearm; sv 17:15 Follow up: Response: No adverse reaction; IV Status: Infusion continued upon admission sv Point of Care Testin:55 HIGH sv Ranges: Intake: 15:11 IV: 1000ml; Total: 1000ml. sv 16:20 IV: 20ml; Total: 1020ml. sv Outcome: 14:42 Decision to Hospitalize by Provider. snw 17:15 Admitted to ICU accompanied by nurse, via stretcher, room ER ICU Room 9, with chart, sv Report called to Candi MARTE 17:15 Condition: stable 17:15 Instructed on the need for admit. 17:33 Patient left the ED. eb Signatures: Dispatcher [employer] EDMS Mirella Alexander RN RN sv Waters, Shelly, [employer] Alicia Harper RN Luke Holden RN ll1 Corrections: (The following items were deleted from the chart) 17:07 16:00 BP 136 / 68; Pulse 86bpm; Resp 23bpm; Pulse Ox 100%; sv sv 17:41 14:55 Inserted saline lock: 22 gauge in left hand, using aseptic technique. ,using sv aseptic technique. done by [facility] sv 18:48 16:15 Reassessment: Patient appears in no apparent distress at this time. No changes sv from previously documented assessment. Patient and/or family updated on plan of care and expected duration. Pain level reassessed. Patient is alert, oriented x 3, equal unlabored respirations, skin warm/dry/pink. sv 18:51 14:00 Response: No adverse reaction sv sv
[2020-04-30] MEDS ORDERED: LORazepam 2 MG/ML VIAL ONE (15:36)
[2020-04-30] MEDS ORDERED: FOLIC ACID 5 MG/ML VIAL ONE (15:37)
[2020-04-30] MEDS ORDERED: CEFTRIAXONE/SWI 1gm 2 GM/20 ML SYR ONE (16:15)
[2020-04-30 16:41] LABS: Urine Blood 1+ (NEG); Urine Glucose 2+ (NEG); Urine Protein NEGATIVE (NEG); Urine Specific Gravity 1.015 (1.005-1.030)
[2020-04-30 16:45] LABS: Potassium 4.1 mmol/L (3.5-5.1)
[2020-04-30] MEDS ORDERED: ONDANSETRON 4 MG/2 ML VIAL IV PRN (16:57)
[2020-04-30] MEDS ORDERED: NACHLORIDE 0.45% 1,000 ML IV SCH (17:00)
[2020-04-30 18:13] VITALS: BMI 21.5
[2020-04-30 19:02] LABS: BUN Blood Urea Nitrogen 42 mg/dL (7-18); Bicarbonate 24 mmol/L (21-32); Glucose Level 344 mg/dL (74-106); Potassium 3.8 mmol/L (3.5-5.1); Sodium Level 139 mmol/L (136-145)
[2020-04-30] MEDS: PIPER/TAZO/NS 3.375gm 3.375 GM/100 ML BAG IV SCH (19:30)
[2020-04-30] MEDS: ENOXAPARIN 30 MG/0.3 ML SQ SCH (20:39)
[2020-04-30] MEDS ORDERED: GABAPENTIN 300 MG CAP ONE (20:42)
[2020-04-30] MEDS ORDERED: PIPER/TAZO/NS 3.375gm 3.375 GM/100 ML BAG ONE (20:43)
[2020-04-30] MEDS ORDERED: ENOXAPARIN 30 MG/0.3 ML SQ ONE (20:43)
[2020-04-30] MEDS ORDERED: HOME MED 1 EA UNK (Midodrine Hcl [Midodrine Hcl] 10 MG) PO SCH (21:00)
[2020-04-30] MEDS ORDERED: MIRTAZAPINE 15 MG TAB PO SCH (21:00)
[2020-04-30] MEDS: MIDODRINE HCL 5 MG TABLET PO SCH (21:00)
[2020-04-30] MEDS: GABAPENTIN 300 MG CAP PO SCH (21:00)
[2020-04-30] MEDS ORDERED: TRAZODONE 150 MG TAB PO SCH (21:00)
[2020-04-30] MEDS ORDERED: MIRTAZAPINE 30 MG PO SCH (21:00)
[2020-04-30] MEDS ORDERED: HOME MED 1 EA UNK (Gabapentin [Gabapentin] 1 TAB) PO SCH (21:00)
[2020-04-30] MEDS: D5 0.45 NS 1,000 ML IV SCH (23:00)
--- NOTE | 2020-04-30 23:00 | P.HP ---
Certification for Inpatient Patient admitted to: Inpatient With expected LOS: >2 Midnights Patient will require the following post-hospital care: None Practitioner: I am a practitioner with admitting privileges, knowledge of patient current condition, hospital course, and medical plan of care. Services: Services provided to patient in accordance with Admission requirements found in Title 42 Section 412.3 of the Code of Federal Regulations Patient History Date of Service: 04/30/20 Reason for admission: Diabetic ketoacidosis with bilateral lower lobe pneumonia History of Present Illness: Patient is a 70-year-old gentleman who came to the hospital with diabetic ketoacidosis. Patient has been having intractable nausea and vomiting. Patient has not been able to keep anything down. Patient has had abdominal pain as well. Patient came into the emergency room and blood sugars were greater than 800 and patient was severely acidotic. Patient was seen by ER nurse practitioner and given 2 amps of sodium bicarb. Patient was also worked up for infectious etiology and chest x-ray revealed bilateral pneumonia. COVID-19 testing was negative. At this time patient will be admitted to the intensive care unit for diabetic ketoacidosis and will correct acidosis and get blood sugar controlled with IV hydration and insulin drip. Continue with antibiotic therapy for the pneumonia. Anticipate hospitalization for 48-72 hours minimum. Hopefully we can get patient to improve over the course of the next 2-3 days. Allergies acyclovir Adverse Reaction (Verified 11/19/19 16:49) acute renal injury meperidine Adverse Reaction (Verified 11/19/19 16:49) unable to recall reaction vancomycin Adverse Reaction (Verified 11/19/19 16:49) acute kidney injury Home Medications: Clopidogrel Bisulfate [Plavix] 75 mg PO DAILY 02/19/20 Ferrous Sulfate 325 mg PO DAILY 02/19/20 Folic Acid 1 mg PO DAILY 02/19/20 Gabapentin 1 tab PO TID 02/19/20 Levothyroxine [Synthroid*] 75 mcg PO [id number] 02/19/20 Linagliptin [Tradjenta] 5 mg PO DAILY 02/19/20 Liothyronine Sodium [Cytomel] 5 mcg PO [id number] 02/19/20 Midodrine HCl 10 mg PO TID 02/19/20 Mirtazapine 45 mg PO BEDTIME 02/19/20 Pantoprazole [Protonix Tab*] 1 tab PO DAILY 02/19/20 Trazodone [Desyrel*] 150 mg PO BEDTIME 02/19/20 Insulin Aspart [Novolog] 0 unit SQ AC 02/20/20 Insulin Degludec [Tresiba] 26 unit SQ DAILY WITH BREAKFAST 02/20/20 - Past Medical/Surgical History Has patient received pneumonia vaccine in the past: Yes Diabetic: Yes -: Hx Throat CA -: HTN -: Diabetes mellitus type 2 non-insulin dependent -: GERD -: Hypothyroidism -: Hyperlipidemia -: Peripheral vascular disease, prior arterial stent -: Former tobacco use -: Chronic renal disease -: Peripheral artery disease -: Shingles, trigeminal neuralgia -: Constipation -: bilateral cataract removal -: Toe amputation, Left Foot:2 -: Arterial stent to the left lower extremity -: Index Finger left hand, partial amputation Psychosocial/ Personal History: - Family History Father Medical History: Heart disease Mother Medical History: Hypertension Brother Medical History: Hypertension Sister Medical History: Hypertension, Stroke - Social History Smoking Status: Former smoker Alcohol use: No CD- Drugs: No Caffeine use: Yes Place of Residence: Home Review of Systems 10-point ROS is otherwise unremarkable Physical Examination - Vital Signs Temperature: 97.8 F Blood Pressure: 99/58 Pulse: 65 Respirations: 17 Pulse Ox (%): 99 - Physical Exam General: Alert, In no apparent distress, Oriented x2, Confused HEENT: Atraumatic, PERRLA, Mucous membr. moist/pink, EOMI, Sclerae nonicteric Neck: Supple, 2+ carotid pulse no bruit, No LAD, Without JVD or thyroid abnormality Respiratory: Diminished, Expiratory wheezes Cardiovascular: Regular rate/rhythm, Normal S1 S2, Systolic murmur Gastrointestinal: Normal bowel sounds, Soft and benign, Non-distended, No masses, No rebound, No guarding, Tenderness Musculoskeletal: No clubbing, No swelling, No tenderness Integumentary: No rashes Neurological: Normal gait, Normal speech, Normal tone, Sensation intact, Cranial nerves 3-12 intact, Abnormal strength Lymphatics: No axilla or inguinal lymphadenopathy - Studies Laboratory Data (last 24 hrs) 04/30/20 16:15: Sodium 139, Potassium 4.1, BUN 45 H, Creatinine 2.63 H, Glucose 527 H* 04/30/20 16:14: Sodium Cancelled, Potassium Cancelled, BUN Cancelled, Creatinine Cancelled, Glucose Cancelled 04/30/20 13:10: PT 10.5, INR 0.89 04/30/20 13:10: WBC 14.4 H, Hgb 9.9 L, Hct 31.7 L, Plt Count 189 04/30/20 13:10: Sodium 133 L, Potassium 5.0, BUN 46 H, Creatinine 2.76 H, Glucose 814 H*, Magnesium 3.0 H D, Total Bilirubin 0.7, AST 10 L, ALT 15, Alkaline Phosphatase 156 H Assessment & Plan - Problems (Diagnosis) (1) Diabetic ketoacidosis Current Visit: Yes Status: Acute (2) Intractable nausea and vomiting Current Visit: Yes Status: Acute (3) Abdominal pain Current Visit: Yes Status: Acute (4) Pneumonia of both lower lobes Current Visit: Yes Status: Acute (5) Acute worsening of stage 3 chronic kidney disease Current Visit: No Status: Acute - Plan Plan: 1. Aggressive IV hydration 2. Insulin drip 3. Monitor electrolytes closely 4. Replace electrolytes as needed 5. Changed IV fluids once blood sugars are less than 250 6. Once anion gap is closed we will see if patient can tolerate a diet and if he does then we can give him his long-acting insulin and stop the insulin drip an hour later. Hydration we will depend on patient's volume status 7. Continue with IV antibiotics 8. Awaiting sputum and blood culture; procalcitonin level 9. Repeat chest x-ray in AM 10. Will order CT scan of the chest if pneumonia is not improving 11. Continue with nebs as needed 12. O2 per protocol 13. GI and DVT prophylaxis Discharge Plan: Home Plan to discharge in: Greater than 2 days - Advance Directives Does patient have a Living Will: No Does patient have a Durable POA for Healthcare: Yes - Code Status/Comfort Care Code Status Assessed: Yes Code Status: Full Code Critical Care: Yes Time Spent Managing PTS Care (In Minutes): 45
[2020-04-30] MEDS ORDERED: D5 0.45 NS 1,000 ML IV ONE (23:30)
[2020-05-01] MEDS: PIPER/TAZO/NS 3.375gm 3.375 GM/100 ML BAG IV SCH ×4 (00:30→17:40)
[2020-05-01] MEDS ORDERED: PIPER/TAZO/NS 3.375gm 3.375 GM/100 ML BAG ONE ×3 (01:23→13:44)
[2020-05-01 01:58] LABS: BUN Blood Urea Nitrogen 39 mg/dL (7-18); Bicarbonate 31 mmol/L (21-32); Glucose Level 204 mg/dL (74-106); Potassium 3.6 mmol/L (3.5-5.1); Sodium Level 141 mmol/L (136-145)
[2020-05-01 05:18] LABS: Absolute Lymphocytes (CBC) 0.4 K/uL (0.7-4.9); Basophils % 1.3 % (0-1.3); Hematocrit 28.4 % (39.6-49.0); Lymphocytes % 3.7 % (15.3-44.8); MPV 8.2 fL (7.6-11.3); RBC Red Blood Cell Count 3.17 M/uL (4.33-5.43)
[2020-05-01 05:35] LABS: BUN Blood Urea Nitrogen 33 mg/dL (7-18); Bicarbonate 31 mmol/L (21-32); Glucose Level 189 mg/dL (74-106); Magnesium 2.4 mg/dL (1.8-2.4); Potassium 3.4 mmol/L (3.5-5.1); Sodium Level 141 mmol/L (136-145)
[2020-05-01] MEDS: D5 0.45 NS 1,000 ML IV SCH (06:14)
[2020-05-01] MEDS ORDERED: GLUCAGON 1 MG/VIAL IM PRN ×2 (06:22)
[2020-05-01] MEDS ORDERED: D50W 25 GM/50 ML SYRINGE/VIAL IV PRN ×2 (06:22)
[2020-05-01] MEDS ORDERED: D5 0.45 NS 1,000 ML IV ONE (06:23)
[2020-05-01] MEDS: LEVOTHYROXINE SOD 0.075 MG TAB PO SCH (06:30)
[2020-05-01] MEDS ORDERED: D5 0.45 NS 1,000 ML IV SCH (07:00)
[2020-05-01] MEDS: PANTOPRAZOLE 40MG TABLET PO SCH (07:30)
[2020-05-01] MEDS: INSULIN -REGULAR HUMAN 50 UNIT/0.5 ML ML SQ SCH ×4 (07:30→20:43)
[2020-05-01] MEDS ORDERED: POTASSIUM PHOS 20 MEQ in NA CHLORIDE 0.9% 250 ML IV ONE (07:42)
[2020-05-01] MEDS ORDERED: POTASSIUM 25 MEQ EFFERV TAB PO ONE ×2 (08:05→19:38)
[2020-05-01] MEDS: INSULIN GLARGINE 100 UNITS/ML SQ SCH ×2 (08:26→09:00)
[2020-05-01] MEDS ORDERED: CLOPIDOGREL 75 MG TABLET ONE ×2 (08:36→09:08)
[2020-05-01] MEDS ORDERED: GABAPENTIN 300 MG CAP ONE (08:36)
[2020-05-01] MEDS ORDERED: PANTOPRAZOLE 40 MG INJ ONE (08:37)
[2020-05-01] MEDS ORDERED: POTASSIUM 25 MEQ EFFERV TAB ONE (08:37)
[2020-05-01] MEDS ORDERED: FOLIC ACID 1 MG TABLET ONE (08:37)
[2020-05-01] MEDS ORDERED: INSULIN GLARGINE 100 UNITS/ML SQ ONE (08:38)
[2020-05-01] MEDS: FOLIC ACID 1 MG TABLET PO SCH (08:52)
[2020-05-01] MEDS: GABAPENTIN 300 MG CAP PO SCH ×3 (08:52→20:42)
[2020-05-01] MEDS: CLOPIDOGREL 75 MG TABLET PO SCH (08:58)
[2020-05-01] MEDS: ENOXAPARIN 30 MG/0.3 ML SQ SCH (09:00)
[2020-05-01] MEDS: MIDODRINE HCL 5 MG TABLET PO SCH ×3 (09:32→20:42)
[2020-05-01] MEDS ORDERED: INSULIN -REGULAR HUMAN 50 UNIT/0.5 ML ML ONE (13:41)
[2020-05-02] MEDS: PIPER/TAZO/NS 3.375gm 3.375 GM/100 ML BAG IV SCH ×4 (00:18→16:27)
[2020-05-02] MEDS ORDERED: ACETAMINOPHEN 500 MG TAB PO PRN (04:56)
[2020-05-02] MEDS: LEVOTHYROXINE SOD 0.075 MG TAB PO SCH (05:04)
[2020-05-02 06:09] LABS: Absolute Lymphocytes (CBC) 0.6 K/uL (0.7-4.9); Basophils % 0.6 % (0-1.3); Hematocrit 27.8 % (39.6-49.0); Lymphocytes % 6.4 % (15.3-44.8); MPV 8.7 fL (7.6-11.3); RBC Red Blood Cell Count 3.06 M/uL (4.33-5.43)
[2020-05-02 06:21] LABS: Magnesium 2.2 mg/dL (1.8-2.4); Phosphorus 1.7 mg/dL (2.5-4.9); Potassium 3.4 mmol/L (3.5-5.1)
[2020-05-02] MEDS: INSULIN -REGULAR HUMAN 50 UNIT/0.5 ML ML SQ SCH ×4 (07:30→20:50)
[2020-05-02] MEDS: GABAPENTIN 300 MG CAP PO SCH ×4 (08:44→20:51)
[2020-05-02] MEDS: ENOXAPARIN 30 MG/0.3 ML SQ SCH (08:44)
[2020-05-02] MEDS: PANTOPRAZOLE 40MG TABLET PO SCH (08:45)
[2020-05-02] MEDS: MIDODRINE HCL 5 MG TABLET PO SCH ×3 (08:45→20:52)
[2020-05-02] MEDS: CLOPIDOGREL 75 MG TABLET PO SCH (08:46)
[2020-05-02] MEDS: FOLIC ACID 1 MG TABLET PO SCH (08:46)
[2020-05-02] MEDS: INSULIN GLARGINE 100 UNITS/ML SQ SCH (08:57)
[2020-05-02] MEDS: POTASS/SODIUM PHOSPHATE 1 PKT POWD.PACK PO SCH ×3 (08:57→11:17)
[2020-05-02] MEDS ORDERED: POTASSIUM CL SA 10 MEQ TAB PO ONE (09:00)
--- NOTE | 2020-05-02 12:27 | RAD REPORT ---
EXAM DESCRIPTION: RAD - Chest Single View - 05/02/2020 12:10 pm CLINICAL HISTORY: pneumonia Chest pain. COMPARISON: Chest Single View dated 04/30/2020; Chest Single View dated 11/11/2019; Chest Single View dated 11/04/2019; Chest Single View dated 08/23/2019 FINDINGS: Portable technique limits examination quality. Vague opacity is seen in the left mid lung, mildly improved since study. This is presumably infiltrat e. The lungs are otherwise clear. The heart is normal in size. No displaced fractures.
--- NOTE | 2020-05-02 13:53 | P.PN ---
Subjective Date of Service: 05/01/20 Patient is feeling better. Diabetic ketoacidosis corrected. Patient's pulmonary status is improving. Labs are stable. Anticipate discharge home within next 24-48 hr. Review of Systems 10-point ROS is otherwise unremarkable Physical Examination - Vital Signs Temperature: 98.2 F Blood Pressure: 170/80 Pulse: 81 Respirations: 18 Pulse Ox (%): 95 - Physical Exam General: Alert, In no apparent distress, Oriented x3 Respiratory: Clear to auscultation bilaterally, Normal air movement Cardiovascular: Regular rate/rhythm, Normal S1 S2, No murmurs Gastrointestinal: Normal bowel sounds, Soft and benign, Non-distended, No tenderness Musculoskeletal: No clubbing, No swelling, No tenderness Neurological: Sensation intact, Cranial nerves 3-12 intact - Studies Microbiology Data (last 24 hrs): 04/30/20 15:11 Blood - Blood Gram Stain - Final Medications List Reviewed: Yes Assessment & Plan - Problems (Diagnosis) (1) Diabetic ketoacidosis Current Visit: Yes Status: Acute (2) Intractable nausea and vomiting Current Visit: Yes Status: Acute (3) Abdominal pain Current Visit: Yes Status: Acute (4) Pneumonia of both lower lobes Current Visit: Yes Status: Acute (5) Acute worsening of stage 3 chronic kidney disease Current Visit: No Status: Acute - Plan Plan: 1. Hep-Lock IV 2. Continue monitoring electrolytes 3. Continue with IV antibiotic therapy 4. Check cardiac status with echocardiogram and monitor on telemetry 5. Repeat chest x-ray in AM 6. O2 per protocol 7. Continue with physical therapy 8. GI and DVT prophylaxis Discharge Plan: Home Plan to discharge in: Greater than 2 days - Advance Directives Does patient have a Living Will: No Does patient have a Durable POA for Healthcare: Yes - Code Status/Comfort Care Code Status: Full Code Critical Care: No Time Spent Managing PTS Care (In Minutes): 35
--- NOTE | 2020-05-02 14:03 | P.PN ---
Subjective Date of Service: 05/02/20 Patient has an episode of near syncope last night. The nurses were with the patient at that time. He almost passed out. Otherwise, patient is doing better today. Patient denied any chest pain. no arrhythmias on telemetry noted. Chest x-ray shows improvement. He denies any complaints at this time. He lives at home with his . He feels like he is ready to go home. Electrolytes are abnormal. Will recheck electrolytes, and anticipate discharge home either this evening or in the morning. Patient is a 70-year-old gentleman who came to the hospital with intractable nausea and vomiting. She was found to have diabetic ketoacidosis. He is admitted for correction of his DKA. He has been doing well however he has been feeling weak. He also had an episode of syncope. May need further cardiac monitoring. May be able to discharge over the next 24 hr. Review of Systems 10-point ROS is otherwise unremarkable Physical Examination - Vital Signs Temperature: 98.2 F Blood Pressure: 170/80 Pulse: 81 Respirations: 18 Pulse Ox (%): 95 - Physical Exam General: Alert, In no apparent distress, Oriented x3 Respiratory: Clear to auscultation bilaterally, Normal air movement Cardiovascular: Regular rate/rhythm, Normal S1 S2, No murmurs Gastrointestinal: Normal bowel sounds, Soft and benign, Non-distended, No tenderness Musculoskeletal: No clubbing, No swelling, No tenderness Neurological: Normal strength at 5/5 x4 extr, Sensation intact, Cranial nerves 3-12 intact - Studies Microbiology Data (last 24 hrs): 04/30/20 15:11 Blood - Blood Gram Stain - Final Medications List Reviewed: Yes Assessment & Plan - Problems (Diagnosis) (1) Diabetic ketoacidosis Current Visit: Yes Status: Acute (2) Intractable nausea and vomiting Current Visit: Yes Status: Acute (3) Abdominal pain Current Visit: Yes Status: Acute (4) Pneumonia of both lower lobes Current Visit: Yes Status: Acute (5) Acute worsening of stage 3 chronic kidney disease Current Visit: No Status: Acute - Plan Plan: Continue with plan of care as mentioned below: 1. Continue with workup for the near syncope. Echocardiogram and carotid Doppler were recently performed in January. Patient had 60-70% left carotid artery lesion. However, bilateral carotid angiogram revealed a 50% lesion. Echocardiogram was unremarkable. Patient follows with Dr. Baradhi as an outpatient. Will consult Cardiology for further recommendations. Mild elevation in troponin may be related to the renal clearance. Patient has been asymptomatic except for the near syncopal episode he had while he was urinating the night before. 2. Continue with out of bed and ambulate; will see how patient's strength is prior to discharging. 3. Continue with IV antibiotic therapy; repeat chest x-ray pending 4. Continue monitoring on telemetry. 5. O2 per protocol 6. GI and DVT prophylaxis Discharge Plan: Home Plan to discharge in: Greater than 2 days - Advance Directives Does patient have a Living Will: No Does patient have a Durable POA for Healthcare: Yes - Code Status/Comfort Care Code Status: Full Code Critical Care: No Time Spent Managing PTS Care (In Minutes): 30
[2020-05-02 15:42] LABS: Potassium 3.4 mmol/L (3.5-5.1); Troponin I 0.36 ng/mL (0.0-0.045)
[2020-05-02] MEDS ORDERED: POTASSIUM 25 MEQ EFFERV TAB PO ONE (16:50)
[2020-05-03] MEDS: PIPER/TAZO/NS 3.375gm 3.375 GM/100 ML BAG IV SCH ×3 (00:29→17:00)
[2020-05-03] MEDS ORDERED: POTASSIUM CL SA 10 MEQ TAB PO ONE (01:14)
[2020-05-03 04:19] LABS: Absolute Lymphocytes (CBC) 0.8 K/uL (0.7-4.9); Basophils % 0.8 % (0-1.3); Hematocrit 26.8 % (39.6-49.0); Lymphocytes % 8.2 % (15.3-44.8); MPV 8.2 fL (7.6-11.3); RBC Red Blood Cell Count 2.95 M/uL (4.33-5.43)
[2020-05-03 04:36] LABS: Magnesium 1.9 mg/dL (1.8-2.4); Phosphorus 1.4 mg/dL (2.5-4.9); Potassium 3.7 mmol/L (3.5-5.1)
[2020-05-03] MEDS: LEVOTHYROXINE SOD 0.075 MG TAB PO SCH (06:00)
[2020-05-03] MEDS: INSULIN -REGULAR HUMAN 50 UNIT/0.5 ML ML SQ SCH ×4 (07:30→21:00)
[2020-05-03 08:30] LABS: CKMB Creatine Kinase MB < 1.0 ng/mL (0.3-3.6)
[2020-05-03] MEDS: ENOXAPARIN 30 MG/0.3 ML SQ SCH (09:00)
[2020-05-03] MEDS: CLOPIDOGREL 75 MG TABLET PO SCH (09:00)
[2020-05-03] MEDS ORDERED: POTASSIUM PHOS IN 0.9 % NACL 15 MMOL/250 ML BAG IV ONE (09:00)
[2020-05-03] MEDS: PANTOPRAZOLE 40MG TABLET PO SCH (09:46)
[2020-05-03] MEDS: GABAPENTIN 300 MG CAP PO SCH ×3 (09:46→21:04)
[2020-05-03] MEDS: FOLIC ACID 1 MG TABLET PO SCH (09:46)
[2020-05-03] MEDS: MIDODRINE HCL 5 MG TABLET PO SCH ×3 (09:46→21:04)
[2020-05-03] MEDS: INSULIN GLARGINE 100 UNITS/ML SQ SCH (09:48)
--- NOTE | 2020-05-03 13:57 | P.PN ---
Subjective Date of Service: 05/03/20 Chief Complaint: Diabetic ketoacidosis with bilateral lower lobe pneumonia Subjective: Improving Physical Examination - Vital Signs Temperature: 98.4 F Blood Pressure: 100/57 Pulse: 88 Respirations: 18 Pulse Ox (%): 93 - Physical Exam General: Alert, In no apparent distress, Oriented x3, Cooperative HEENT: Atraumatic Neck: Supple Respiratory: Clear to auscultation bilaterally, Normal air movement Cardiovascular: Normal pulses, Regular rate/rhythm Gastrointestinal: Normal bowel sounds, Soft and benign, Non-distended, No gunjan s, No rebound, No guarding Neurological: Normal speech, Normal strength at 5/5 x4 extr, Normal tone, Normal affect - Studies Microbiology Data (last 24 hrs): 04/30/20 15:11 Blood - Blood Aerobic Blood Culture - Final No growth. 04/30/20 15:11 Blood - Blood Anaerobic Blood Culture - Final 04/30/20 15:11 Blood - Blood Gram Stain - Final Medications List Reviewed: Yes Assessment & Plan Discharge Plan: Home Plan to discharge in: 24 Hours Physician Review Additional Text: Impression: Nausea, vomiting secondary to diabetic ketoacidosis resolved Left lower lobe pneumonia Syncope with underlying orthostatic hypotension Carotid arterial disease Hypothyroidism GERD Diabetic neuropathy Plan: Nausea, vomiting secondary to diabetic ketoacidosis resolved: Continue with Lantus. Blood sugars appear stable. Will monitor closely. Patient have heart catheterization today to further evaluate his condition. Continue IV antibiotic therapy. Continue midodrine. Anticipate improvement over the next 24 hr. Left lower lobe pneumonia: Continue antibiotic therapy. Recheck chest x-ray tomorrow. Will transition to oral medication tomorrow. Syncope with underlying orthostatic hypotension: Etiology unknown. Will need to rule out CAD. Troponin slightly elevated. Obtain echocardiogram. Cardiology to perform heart catheterization to further evaluate. Continue midodrine. Carotid arterial disease: Continue monitor closely. Await Cardiology recommendation. Hypothyroidism: Continue medication. GERD: Continue medication Diabetic neuropathy: Continue medication Time Spent Managing Pts Care (In Minutes): 55
[2020-05-03] MEDS ORDERED: NA CHLORIDE 0.9% 500 ML ONE (14:31)
[2020-05-03] MEDS ORDERED: HEPA 1000U/500MLS 1,000 UNIT/500 ML BAG IV ONE (14:48)
[2020-05-03] MEDS ORDERED: HEPARIN 5000 UNIT/ML 1 ML VIAL ONE ×2 (14:48→14:49)
[2020-05-03] MEDS ORDERED: MIDAZOLAM HCL 2 MG/2 ML INJ ONE (14:48)
[2020-05-03] MEDS ORDERED: VERAPAMIL HCL 5 MG/2 ML VIAL IV ONE (14:48)
[2020-05-03] MEDS ORDERED: FENTANYL CITR 100 MCG/2 ML ONE (14:49)
[2020-05-03] MEDS ORDERED: ATROPINE SULF 1 MG/10 ML SYR IV ONE (14:49)
[2020-05-03] MEDS ORDERED: LIDOCAINE 1% MPF 30 ML VIAL ONE (15:48)
[2020-05-04] MEDS: PIPER/TAZO/NS 3.375gm 3.375 GM/100 ML BAG IV SCH ×3 (02:00→16:46)
--- NOTE | 2020-05-04 02:08 | OP ---
Date of Procedure: 05/01/2020 Surgeon: STEPHANY BRADSHAW Procedure Performed: Selective coronary angiogram. Indication: Unstable angina. Access: Failed right radial artery. A TR band was placed and then right femoral artery 6-[place]izen [place] shankar sed with manual pressure. Complications: None. Bleeding: Less than 10 mL. Description Of Procedure: After risks, benefits, and alternatives were explained to the patient, he agreed to the procedure and then signed informed consent. The patient was brought into the cardiac c atheterization laboratory, prepped and draped in usual sterile fashion. Then, we tried to access rig ht radial, however, could not pass the sheath through. A TR band was placed and then was switched to the groin access. Under the guidance of the ultrasound and fluoroscopy, right femoral artery was ac cessed and then a 6-Citizen [place] pinnacle sheath was placed. We used micropuncture kit to access the femor al artery. I then took a 6-[place]izen [place] JL-4 catheter into the aortic root over a J-wire, engaged left franchesca n, took standard views and exchanged for a 6-Citizen [place] JR4 catheter and engaged right coronary artery an d took standard views, and pulled the catheters and wires, and the sheath was removed and manual pres sure was applied. Findings: 1.Left main large with mild disease, 10% to 20%. 2.LAD is severely calcified with diffuse proximal to mid multiple tandem lesions that are at least 8 0% each. There are multiple diagonal branches that come off the LAD and they are severely diseased a s well and heavily calcified. 3.Left circumflex proximally has 40% and there is a large OM 1 branch that has an ostial to proximal 80% to 90% stenosis. 4.RCA proximal 60%, mid 80%, and distal 90% and heavily calcified vessel. Impression: Severe multivessel coronary artery disease. Plan: Refer for CT Surgery evaluation for CABG evaluation. /MARKL Voice ID: [id number] Report ID: [id number]
[2020-05-04 04:29] LABS: Magnesium 1.9 mg/dL (1.8-2.4); Phosphorus 2.2 mg/dL (2.5-4.9); Potassium 3.5 mmol/L (3.5-5.1)
[2020-05-04] MEDS: LEVOTHYROXINE SOD 0.075 MG TAB PO SCH (05:48)
[2020-05-04] MEDS: PANTOPRAZOLE 40MG TABLET PO SCH (06:41)
[2020-05-04] MEDS: INSULIN -REGULAR HUMAN 50 UNIT/0.5 ML ML SQ SCH ×6 (07:30→20:12)
[2020-05-04] MEDS: MIDODRINE HCL 5 MG TABLET PO SCH ×3 (09:00→20:11)
[2020-05-04] MEDS: CLOPIDOGREL 75 MG TABLET PO SCH (09:00)
[2020-05-04] MEDS ORDERED: POTASSIUM PHOS 10 MM in NA CHLORIDE 0.9% 250 ML IV ONE (09:00)
[2020-05-04] MEDS: GABAPENTIN 300 MG CAP PO SCH ×3 (09:00→20:11)
[2020-05-04] MEDS ORDERED: ENOXAPARIN 40 MG/0.4 ML SQ SCH (09:00)
[2020-05-04] MEDS ORDERED: POTASSIUM PHOS IN 0.9 % NACL 15 MMOL/250 ML BAG IV ONE (09:00)
[2020-05-04] MEDS: FOLIC ACID 1 MG TABLET PO SCH (09:00)
[2020-05-04] MEDS: INSULIN GLARGINE 100 UNITS/ML SQ SCH (09:01)
--- NOTE | 2020-05-04 11:59 | P.DS ---
Admission Date: 04/30/20 Discharge Date: 05/04/20 Primary Care Provider: Dr. Bacon Disposition: TRANSFER TO [facility] Discharge Condition: GOOD Reason for Admission: Diabetic ketoacidosis with bilateral lower lobe pneumonia Consultations: cardiology-Dr. Huang Vital Signs/Physical Exam: Temp Pulse Resp BP Pulse Ox 98.1 F 86 18 151/75 H 95 05/04/20 08:00 05/04/20 08:00 05/04/20 08:00 05/04/20 08:00 05/04/20 08:00 General: Alert, In no apparent distress, Oriented x3, Cooperative HEENT: Atraumatic Neck: Supple Respiratory: Clear to auscultation bilaterally, Normal air movement Cardiovascular: Normal pulses, Regular rate/rhythm Gastrointestinal: Normal bowel sounds, No tenderness, No masses, No rebound, No guarding Musculoskeletal: No erythema, No tenderness, No warmth Integumentary: No tenderness/swelling, No erythema, No warmth, No cyanosis Neurological: Normal speech, Normal strength at 5/5 x4 extr, Normal tone, Normal affect Laboratory Data at Discharge: WBC 9.5 K/uL (4.3-10.9) 05/03/20 03:30 Hgb 9.1 g/dL (13.6-17.9) L 05/03/20 03:30 Hct 26.8 % (39.6-49.0) L 05/03/20 03:30 Plt Count 140 K/uL (152-406) L 05/03/20 03:30 PT 10.5 SECONDS (9.5-12.5) 04/30/20 13:10 INR 0.89 04/30/20 13:10 Sodium 135 mmol/L (136-145) L 05/04/20 03:31 Potassium 3.5 mmol/L (3.5-5.1) 05/04/20 03:31 BUN 15 mg/dL (7-18) 05/04/20 03:31 Creatinine 1.15 mg/dL (0.55-1.3) 05/04/20 03:31 Glucose 214 mg/dL (74-106) H 05/04/20 03:31 Phosphorus 2.2 mg/dL (2.5-4.9) L D 05/04/20 03:31 Magnesium 1.9 mg/dL (1.8-2.4) 05/04/20 03:31 Total Bilirubin 0.7 mg/dL (0.2-1.0) 04/30/20 13:10 AST 10 U/L (15-37) L 04/30/20 13:10 ALT 15 U/L (12-78) 04/30/20 13:10 Alkaline Phosphatase 156 U/L (45-117) H 04/30/20 13:10 Troponin I 0.20 ng/mL (0.0-0.045) H 05/03/20 07:41 Home Medications: Clopidogrel Bisulfate [Plavix] 75 mg PO DAILY 02/19/20 Ferrous Sulfate 325 mg PO DAILY 02/19/20 Folic Acid 1 mg PO DAILY 02/19/20 Gabapentin 1 tab PO TID 02/19/20 Linagliptin [Tradjenta] 5 mg PO DAILY 02/19/20 Liothyronine Sodium [Cytomel] 5 mcg PO [id number] 02/19/20 Midodrine HCl 10 mg PO TID 02/19/20 Mirtazapine 45 mg PO BEDTIME 02/19/20 Pantoprazole [Protonix Tab*] 1 tab PO DAILY 02/19/20 Trazodone [Desyrel*] 150 mg PO BEDTIME 02/19/20 Insulin Aspart [Novolog] 0 unit SQ AC 02/20/20 Levothyroxine [Synthroid] 50 mcg PO [id number] 05/01/20 Linagliptin [Tradjenta] 5 mg PO DAILY 05/01/20 Patient Discharge Instructions: OK TO DC IV AND DC HOME. FOLLOW-UP WITH PRIMARY CARE PROVIDER IN 1-2 WEEKS. FOLLOW-UP WITH PULMONARY IN 1-2 WEEKS. RETURN TO THE ER IF symptoms worsens. CALL or TEXT DR. CHACON AT [phone] IF ANY QUESTIONS REGARDING HOSPITAL STAY. PLEASE CALL THE FLOOR AT [phone] IF ANY MEDICATION OR NURSING QUESTIONS. Diet: AHA Activity: Fall precautions Followup: NONE,NONE [Primary Care Provider] -
--- NOTE | 2020-05-04 13:00 | P.DS ---
Admission Date: 04/30/20 Discharge Date: 05/04/20 Primary Care Provider: Dr. Bacon Disposition: TRANSFER TO [facility] Discharge Condition: GOOD Reason for Admission: Diabetic ketoacidosis with bilateral lower lobe pneumonia Consultations: cardiology-Dr. Bradshaw Procedures: Heart cath: Date of Procedure: 05/01/2020 Surgeon: STEPHANY BRADSHAW Procedure Performed: Selective coronary angiogram. Indication: Unstable angina. Access: Failed right radial artery. A TR band was placed and then right femoral artery 6-[place] closed with manual pressure. Complications: None. Findings: 1. Left main large with mild disease, 10% to 20%. 2. LAD is severely calcified with diffuse proximal to mid multiple tandem lesions that are at least 80% each. There are multiple diagonal branches that come off the LAD and they are severely diseased as well and heavily calcified. 3. Left circumflex proximally has 40% and there is a large OM 1 branch that has an ostial to proximal 80% to 90% stenosis. 4. RCA proximal 60%, mid 80%, and distal 90% and heavily calcified vessel. Impression: Severe multivessel coronary artery disease. Plan: Refer for CT Surgery evaluation for CABG evaluation. Medical problem list: Nausea, vomiting secondary to diabetic ketoacidosis resolved Syncope and unstable angina status post heart catheterization showing significant multi vessel Coronary artery disease Left lobe pneumonia Syncope with underlying orthostatic hypotension Carotid arterial disease Hypothyroidism GERD Diabetic neuropathy Brief History of Present Illness: 70-year-old male with history of diabetes presented to emergency room with increased nausea and vomiting. Patient found to have diabetic ketoacidosis. The patient was admitted for further evaluation. Hospital Course: Patient presented with nausea, vomiting secondary to diabetic ketoacidosis. The patient with underlying history of diabetes. The patient was treated. Diabetic ketoacidosis resolved. Patient found to have elevated troponin. Patient also had syncopal episode. Unstable angina was suspected. Cardiology was consulted to further evaluate. Cardiology recommended heart catheterization to further evaluate. Heart catheterization showed severe multi-vessel Coronary artery disease. Left main large with mild disease at 10-20%; LAD severely calcified with diffuse proximal to mid multiple tandem lesions at least 80% each; Left circumflex proximally has 40% stenosis and there is a large OM 1 branch that has an ostial to proximal 80% to 90% stenosis, RCA proximal 60s percent, mid 80% and distal 90%. Cardiology spoke with CV surgery at [facility] for transfer to consider CABG. CV surgery has agreed. The patient will be transferred to [facility] to continue his care for CABG. At this time patient is currently stable. There was some consideration of left lobe pneumonia. Patient has been on IV Zosyn. This was discussed with the hospitalist who will continue his care. Patient with underlying carotid arterial disease, hypothyroidism, GERD and diabetic neuropathy. This remained stable. Continue current medication. The patient is stable for transfer to continue high-level care. Patient with history of orthostatic hypotension. Patient remains on midodrine. This was discussed in detail with the hospitalist. Vital Signs/Physical Exam: Temp Pulse Resp BP Pulse Ox 98.1 F 86 18 151/75 H 95 05/04/20 08:00 05/04/20 08:00 05/04/20 08:00 05/04/20 08:00 05/04/20 08:00 General: Alert, In no apparent distress, Oriented x3, Cooperative HEENT: Atraumatic Neck: Supple Respiratory: Clear to auscultation bilaterally, Normal air movement Cardiovascular: Normal pulses, Regular rate/rhythm Gastrointestinal: Normal bowel sounds, Soft and benign, Non-distended, No tenderness, No masses, No rebound, No guarding Integumentary: No tenderness/swelling, No erythema, No warmth, No cyanosis Neurological: Normal speech, Normal strength at 5/5 x4 extr, Normal tone, Normal affect Laboratory Data at Discharge: WBC 9.5 K/uL (4.3-10.9) 05/03/20 03:30 Hgb 9.1 g/dL (13.6-17.9) L 05/03/20 03:30 Hct 26.8 % (39.6-49.0) L 05/03/20 03:30 Plt Count 140 K/uL (152-406) L 05/03/20 03:30 PT 10.5 SECONDS (9.5-12.5) 04/30/20 13:10 INR 0.89 04/30/20 13:10 Sodium 135 mmol/L (136-145) L 05/04/20 03:31 Potassium 3.5 mmol/L (3.5-5.1) 05/04/20 03:31 BUN 15 mg/dL (7-18) 05/04/20 03:31 Creatinine 1.15 mg/dL (0.55-1.3) 05/04/20 03:31 Glucose 214 mg/dL (74-106) H 05/04/20 03:31 Phosphorus 2.2 mg/dL (2.5-4.9) L D 05/04/20 03:31 Magnesium 1.9 mg/dL (1.8-2.4) 05/04/20 03:31 Total Bilirubin 0.7 mg/dL (0.2-1.0) 04/30/20 13:10 AST 10 U/L (15-37) L 04/30/20 13:10 ALT 15 U/L (12-78) 04/30/20 13:10 Alkaline Phosphatase 156 U/L (45-117) H 04/30/20 13:10 Troponin I 0.20 ng/mL (0.0-0.045) H 05/03/20 07:41 Home Medications: Clopidogrel Bisulfate [Plavix] 75 mg PO DAILY 02/19/20 Ferrous Sulfate 325 mg PO DAILY 02/19/20 Folic Acid 1 mg PO DAILY 02/19/20 Gabapentin 1 tab PO TID 02/19/20 Linagliptin [Tradjenta] 5 mg PO DAILY 02/19/20 Liothyronine Sodium [Cytomel] 5 mcg PO WAART1SP 02/19/20 Midodrine HCl 10 mg PO TID 02/19/20 Mirtazapine 45 mg PO BEDTIME 02/19/20 Pantoprazole [Protonix Tab*] 1 tab PO DAILY 02/19/20 Trazodone [Desyrel*] 150 mg PO BEDTIME 02/19/20 Insulin Aspart [Novolog] 0 unit SQ AC 02/20/20 Levothyroxine [Synthroid] 50 mcg PO [id number] 05/01/20 Linagliptin [Tradjenta] 5 mg PO DAILY 05/01/20 Patient Discharge Instructions: Patient be transferred to [facility] for high-level care-CABG. Patient stable for transfer. Case discussed with hospitalist. Cardiology has spoken to CV surgery. Diet: AHA Activity: Fall precautions Followup: NONE,NONE [Primary Care Provider] - Time spent managing pt's care (in minutes): 55
[2020-05-04 20:13] VITALS: BP 129/69
[2020-05-04 20:47] VITALS: TEMP 97.8
[2020-05-04 21:47] VITALS: O2SAT 95
[2020-05-05] MEDS ORDERED: ASPIRIN EC 81 MG TAB PO SCH (09:00)
== END 2020-05-04 21:37 | disposition short-term general hospital (02) | DRG 637 ==
LOC: ER 12:50 → ERHOLD 16:57 → 2ND 05-01 14:33
PROVIDERS: ADMIT Hospitalist; ATTEND Family Medicine
PROC: 4A023N7 Measurement of Cardiac Sampling and Pressure, Left Heart, Percutaneous Approach (ICD-10-PCS; principal; 2020-05-01)
PROC: B2111ZZ Fluoroscopy of Multiple Coronary Arteries using Low Osmolar Contrast (ICD-10-PCS; 2020-05-01)
DX: E11.10 Type 2 diabetes mellitus with ketoacidosis without coma (principal); J18.9 Pneumonia, unspecified organism; I25.110 Atherosclerotic heart disease of native coronary artery with unstable angina pectoris; K21.9 Gastro-esophageal reflux disease without esophagitis; E78.5 Hyperlipidemia, unspecified; I95.1 Orthostatic hypotension; I65.29 Occlusion and stenosis of unspecified carotid artery; E03.9 Hypothyroidism, unspecified; I12.9 Hypertensive chronic kidney disease with stage 1 through stage 4 chronic kidney disease, or unspecified chronic kidney disease; N18.30 Chronic kidney disease, stage 3 unspecified; E11.22 Type 2 diabetes mellitus with diabetic chronic kidney disease; E11.51 Type 2 diabetes mellitus with diabetic peripheral angiopathy without gangrene; E11.40 Type 2 diabetes mellitus with diabetic neuropathy, unspecified; Z88.0 Allergy status to penicillin; Z88.5 Allergy status to narcotic agent; Z79.02 Long term (current) use of antithrombotics/antiplatelets; Z79.890 Hormone replacement therapy; Z79.899 Other long term (current) drug therapy; Z85.89 Personal history of malignant neoplasm of other organs and systems; Z79.4 Long term (current) use of insulin; Z89.422 Acquired absence of other left toe(s); Z89.022 Acquired absence of left finger(s); Z87.891 Personal history of nicotine dependence; Z20.828 Contact with and (suspected) exposure to other viral communicable diseases
CPT/HCPCS: 36415; 70450; 71045; 72125; 80048; 80076; 81003; 82010; 82553; 82805; 82947; 83036; 83605; 83735; 83880; 84100; 84132; 84484; 85025; 85610; 87040; 87205; 92610; 93005; 93454; 97161; 97530; 99285; C1893; C9113; J0696; J1644; J1650; J1815; J2250; J2543; J3010; J3411; J7030; J7040; J7050; J7799; U0003

== ENCOUNTER 2020-05-18 11:22 | Inpatient (IN) | payer OTHER ==
--- NOTE | 2020-05-18 11:01 | R.PREADM ---
PRE-ADMISSION SCREENING FORM SCREENING DATE AND TIME 05/17/2020 13:00 (WELLNESS INSTRUCTOR) ANTICIPATED REHAB ADMISSION DATE 05/19/2020 REFERRING FACILITY [facility] REFERRAL DATE AND TIME 05/17/2020 13:00 (WELLNESS INSTRUCTOR) REFERRAL ROOM# 1154 ACUTE ADMIT DATE 05/18/2020 Previous Rehabilitation(s): No. ACUTE GEOGRAPHIC INFORMATION SYSTEMS DIRECTOR/DC FRESCO ARTIST September ATTENDING PHYSICIAN МАРИНА BO REFERRING PHYSICIAN МАРИНА BO REHAB FACILITY [facility] CLINICAL LIAISON Alex Lilly PHYSICIAN REVIEWER Dr. Puneet Samuels M.D. MR# [id number] NAME KIARRA RUFFIN ADDRESS [address] [place] [address] PHONE [facility] [id number] DATE OF 1950 AGE 70 SSN# [id number] GENDER male MARITAL STATUS RACE unknown race ADMIT FROM 02 - [facility] PRE-HOSPITAL LIVING SETTING 01 - Home (private home/apt. board/care, assisted living, usp, transitional living) HOME TYPE AND DETAILS Type of home: single family house # of levels in the residence: 1 # of steps within the residence: 0 # of steps to enter the residence: 0 PRE-HOSPITAL LIVING WITH Family/Relatives FAMILY SUPPORT Yes PRIMARY FAMILY CONTACT NAME DIANNE RUFFIN PRIMARY FAMILY CONTACT PHONE PRIMARY FAMILY CONTACT RELATIONSHIP PHONE PRIMARY FAMILY CONTACT ON ADM.? no IS PRIMARY FAMILY CONTACT AUTH. REP.? no 1ST EMERGENCY CONTACT DIANNE RUFFIN 1ST CONTACT PHONE 1ST CONTACT RELATIONSHIP PHONE 1ST CONTACT ON ADM. no IS 1ST CONTACT AUTH. REP.? no PHONE 2ND CONTACT ON ADM.? no PATIENT EMPLOYMENT STATUS Retired (for age) PATIENT EMPLOYER No Employer PAYOR INFORMATION: 1ST PAYOR NAME MEDICARE 1ST PAYOR PHONE 1ST PAYOR INJURY/ILLNESS DUE TO ACCIDENT? No ANOTHER [employer] RESPONSIBLE? No PRIMARY REHAB/ACUTE DIAGNOSIS: MULTIVESSEL CAD ONSET DATE 05/04/2020 REHAB IMPAIRMENT CATEGORY (JACINTA): 14 Cardiac does NOT meet 60% rule PRIMARY DIAGNOSIS-RELATED SURGERIES: S/P ACB X4 BY DR. MCKEON 05/09/20 SUMMARY OF ACUTE HOSPITALIZATION: Pt. is a 70 yo Right-handed male of unknown race. On 05/04/2020 he was admitted to [facility] with diagnosis MULTIVESSEL CAD. His impairment category is Cardiac 09 - Cardiac Disorders (09). Pre-morbidly, Pt. was independent/mod-I in Safety Awareness, Balance, Endurance, and Self-Care; and h e had good Sphincter Control, Transfers Control, and Social Cognition. Currently, he has deficits of Endurance, Sphincter Control, Transfers Control, Balance, and Locomotio n. Pt. is now referred to [facility] for acute in-patient rehabilitation in order to maximize patient's functional independence in activities of daily living, strength, ROM, and mobi lity. PAST MEDICAL HISTORY DIABETES MELLITUS HLD HYPOTHYROIDISM JOINT PAIN MISSING L 1-3 TOES CHRONIC IMPAIRED SENSATION IN THE FEET HYPERTENSION HISTORY OF TOBACCO USE OF 20 YEARS PNEUMONIA PAST SURGICAL HISTORY: BTPASS,AORTO CORONARY SELMA/SVG ENDOSCOPIC VEIN HARVEST SAMSON MEDICATION ALLERGIES: No Known Drug Allergies (NKDA) ENVIRONMENTAL ALLERGIES: - Substance Allergies None Known - Other Allergies None Known CODE STATUS: Full code WEIGHT/HEIGHT/BMI: WEIGHT 159 lbs HEIGHT 5' 11" BMI 22.2 DIET: - Diet Type Regular - Diet - Solid Texture Regular - Diet - Liquid Texture Regular - Tube Feed N/A REVIEW OF SYSTEMS: - Gen Alert and awake Lying in bed No apparent distress Oriented to: person, time, and place - Vital Signs Temperature: 97 F SBP/DBP: 140/70 Pulse: 70 Resp: 18 Vital signs stable, afebrile - CVS RRR VITAL SIGNS Temperature: 97 F SBP/DBP: 140/70 Pulse: 70 Resp: 18 Vital signs stable, afebrile MEDICATIONS/TREATMENT: Other- See attached MAR (Medication Administration Record). CURRENT SPHINCTER CONTROL: Pre-hospital bladder status: unspecified # of bladder accidents in the last 7 days prior to screenin Pre-hospital bowel status: unspecified # of bowel accidents in the last 7 days prior to screenin Last Bowel Movement Date: 05/17/2020 CURRENT LOCOMOTION STATUS: distance walked 0 feet DETAILED CURRENT FUNCTIONAL STATUS: - Bladder accident frequency: Ind - No accidents in the past 7 days - Bowel accident frequency: Ind - No accidents in the past 7 days - Walking score based on distance walked: 0(N/A) - Wheelchair score based on distance traveled: 0(N/A) QI SCORES: - Self-Care A. Eating 03-Partial/moderate assistance B. Oral hygiene 03-Partial/moderate assistance C. Toileting hygiene 03-Partial/moderate assistance E. Shower/bathe self 03-Partial/moderate assistance F. Upper body dressing 03-Partial/moderate assistance G. Lower body dressing 03-Partial/moderate assistance H. Putting on/taking off footwear 88-Not attempted due to medical condition or safety concerns - Mobility A. Roll left and right 04-Supervision or touching assistance B. Sit to lying 03-Partial/moderate assistance C. Lying to sitting on side of bed 03-Partial/moderate assistance D. Sit to stand 03-Partial/moderate assistance E. Chair/qoa-rh-[id number] transfer 03-Partial/moderate assistance F. Toilet transfer 03-Partial/moderate assistance G. Car transfer 88-Not attempted due to medical condition or safety concerns I. Walk 10 feet 88-Not attempted due to medical condition or safety concerns J. Walk 50 feet with two turns 88-Not attempted due to medical condition or safety concerns K. Walk 150 feet 88-Not attempted due to medical condition or safety concerns L. Walking 10 feet on uneven surfaces 88-Not attempted due to medical condition or safety concerns M. 1 step (curb) 88-Not attempted due to medical condition or safety concerns N. 4 steps 88-Not attempted due to medical condition or safety concerns O. 12 steps 88-Not attempted due to medical condition or safety concerns P. Picking up object 88-Not attempted due to medical condition or safety concerns R. Wheel 50 feet with two turns 88-Not attempted due to medical condition or safety concerns S. Wheel 150 feet 88-Not attempted due to medical condition or safety concerns - Bladder and Bowel Bladder continence Bowel continence - Endurance Fair - Balance Fair - Safety Awareness Fair CURRENT FUNC. DEFICITS: Self-Care, Mobility, Endurance, Balance, and Safety Awareness HISTORY OF FALLS. HAS THE PATIENT HAD TWO OR MORE FALLS IN THE PAST YEAR OR ANY FALL WITH INJURY IN T HE PAST YEAR?: No THERAPY NOTES FROM ACUTE CARE: Attached. SPECIAL NEEDS: - Safety Concerns Skin breakdown precautions needed due to skin breakdown risk PATIENT NEEDS ACTIVE AND ONGOING THERAPEUTIC INTERVENTION OF MULTIPLE THERAPY DISCIPLINES, INCLUDING: - Dietary and Nutrition Adequate Nutrition. Nutritional Education. Nutritional Supplements. PATIENT NEEDS CLOSE MEDICAL SUPERVISION BY A REHABILITATION PHYSICIAN FOR: Coordination of Treatment Team PATIENT REQUIRES 24X7 REHAB NURSING FOR MEDICAL AND FUNCTIONAL MGT. OF THE FOLLOWING DEFICITS: Disease Management Medication Management Patient/Family Education Providing Safe Environment PATIENT REQUIRES INTENSIVE, COORDINATED INTERDISCIPLINARY APPROACH TO REHAB: Arranging Home Equipment/Services Discharge Planning Family Intervention/Training Supervisor Denture Department/Case Management PATIENT REHAB POTENTIAL: Александр RUFFIN is able and expected to receive 3 hours of individualized therapy daily on at least 5 of ev dwight 7 days Александр Huerta prognosis for significant practical improvement within a reasonable period of time appear s Good Expected level of measurable improvement will be of a practical value to Александр RUFFIN's functional capac ity or adaptations to impairments Has a viable Discharge Plan Medically appropriate; condition is sufficiently stable to participate in intensive rehab program DISCHARGE PLAN: - Estimated Length of Stay (days) 10. - Consensus on plan Discharge plan has been discussed with primary caregiver. Patient/Family is in agreement with the miquel n. Primary caregiver is in agreement with the plan. - Patient/Family Goals Return home independently. - Planned Living Setting Upon Discharge Home, to live with Family/Relatives. Transitional Living. RECOMMENDED CARE LEVEL: IRF RECOMMENDATION DETAILS: Recommended Admission to Comprehensive Rehabilitation Program to Increase Functional [place] SCREENER'S COMPLETENESS CONFIRMATION: - Screening Confirmation The patient data collection on this preadmission screening form is finished PHYSICIANS REVIEW AND ADMISSION DETERMINATION Admit - Based on my review of the Pre-Admission Screening results, in my medical judgment and experie nce, I concur with the findings and recommend admission to [facility], as this patient requires an IRF level of care. SIGNATURE PANEL: Delivery Helper - [electronically] signed by Alex Lilly on 05/18/2020 at 09:16 (WELLNESS INSTRUCTOR) Delivery Helper - [electronically] signed by Glenn Rosas PT on 05/18/2020 at 10:31 (WELLNESS INSTRUCTOR) Physician Reviewer - [electronically] signed by Dr. Puneet Samuels M.D. on 05/18/2020 at 11:00 (WELLNESS INSTRUCTOR )
--- OUTSIDE RECORDS SUMMARY | 2020-05-18 17:08 | XMS REPORT | Clinical Summary ---
:1950 Author Organization [facility] Address [address] [place] [address] Care Team Providers Name Role Phone Ancelmo Rony Simpson Unavailable Allergies Active Allergy Reactions Severity Noted Date Comments Acyclovir Analogues 05/04/2020 Meperidine 05/04/2020 Vancomycin Analogues 05/04/2020 Medications Medication Sig Dispensed Refills Start End Status Date Date gabapentin Take 300 mg by 0 Acti ve (NEURONTIN) 300 MG mouth 3 (three) capsule times daily. liothyronine Take 5 mcg by 0 Act abby (CYTOMEL) 5 MCG mouth daily. tablet midodrine Take 10 mg by 0 Active (PROAMATINE) 10 MG mouth 3 (three) tablet times daily. levothyroxine Take 50 mcg by 0 A ctive (SYNTHROID, mouth Every LEVOTHROID) 50 MCG morning on an tablet empty stomach. aspirin 81 MG EC Take 1 tablet (81 30 tablet 0 05/19/2005/19 Active tablet mg total) by mouth 20 021 daily. atorvastatin Take 1 tablet (80 30 tablet 0 05/18/202 Active (LIPITOR) 80 MG mg total) by mouth 20 021 tablet nightly. fludrocortisone Take 1 tablet (0.1 30 tablet 0 05/18/2005/182 Active (FLORINEF) 0.1 mg mg total) by mouth 20 021 tablet daily. HYDROcodone-acetami Take 2 tablets by 30 tablet 0 05/18/20 Active nophen (NORCO mouth every 4 20 020 5-325) 5-325 mg per (four) hours as tablet needed for up to 10 days. Max Daily Amount: 12 tablets insulin lispro Inject 6 Units 10 mL 0 05/18/20 Active (HumaLOG) 100 subcutaneously 3 20 021 unit/mL injection (three) times daily before meals. insulin glargine Inject 15 Units 1 Syringe 0 05/18/20 Active (LANTUS) 100 subcutaneously 20 unit/mL (3 mL) InPn nightly. ondansetron Take 1 tablet (4 20 tablet 0 05/18/20 A ctive (ZOFRAN-ODT) 4 MG mg total) by mouth 20 020 disintegrating every 6 (six) tablet hours as needed for up to 7 days. polyethylene glycol Take 17 g by mouth 14 each 0 05/18/20 1 Active (GLYCOLAX) 17 gram 2 (two) times 20 020 packet daily for 3 days. clopidogreL Take 75 mg by 0 Disc ontinued (PLAVIX) 75 mg mouth daily. 020 (S top Taking at tablet Discharge) Active Problems Problem Noted Date s/p ACB x4 by 05/09/20 05/09/2020 PAD (peripheral artery disease) 05/06/2020 Uncontrolled type 2 diabetes mellitus with hyperglycem ia 05/06/2020 Coronary artery disease 05/05/2020 Acute respiratory insufficiency Acute post-operative pain Hypothyroidism, unspecified type Encounters Date Type Specialty Care Team Description 05/09/2020 Surgery Rony Sharma BYPASS,AORTO CORONARY MD Gómez SELMA/SVG 05/09/2020 Anesthesia Event CreoDamon MD Powell, Thomas Ryan, MD 05/05/2020 Orders Only General Internal Medicine 05/05/2020 Travel 05/04/2020 - Hospital Encounter Cardiology QuickBettina nesbitt Coronary artery disease involving [place] heart without angina pectoris, unspecified vessel or lesion type; 05/18/2020 MD Zoya Type 2 diabetes mellitus without complic ation, with long-term current use of insulin ([facility]); Clayton Reeder, Pneumonia du e to infectious organism, unspecified laterality, unspecified part of lung; Uncontrolled type 2 diabetes mellitus wi th hyperglycemia ([facility]); Rony Sharma PAD (peripher al artery disease) ([facility]); MD Gómez Acute post-operative pain; JesúsJericho oswald Acute respir atory insufficiency; MD Jimmy Hypothyroidism, unspecified type; Chayo Garza S/P CABG x 4; MD [place] Orthostatic hyp otension; Hyponatremia; Dysautonomia (H CC); Impaired mobili ty and ADLs after 05/18/2019 Social History Tobacco Use Types Packs/Day Years Used Date Never Assessed Sex Assigned at Date Recorded Not on file COVID-19 Exposure Response Date Recorded In the last month, have you been in contact with No / Unsure 05/05/2020 12:18 AM PROFESSOR [employer]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 Last Filed Vital Signs Vital Sign Reading Time Taken Comments Blood Pressure 138/67 05/18/2020 2:37 PM [employer] Pulse 86 05/18/2020 2:37 PM [employer]MENT[employer] Temperature 36.2 C (97.2 F) 05/18/2020 2:37 PM [employer]MENT[employer] Respiratory Rate 18 05/18/2020 2:37 PM [employer]MENT[employer] Oxygen Saturation 95% 05/18/2020 2:37 PM [employer]MENT[employer] Inhaled Oxygen Concentration 21% 05/14/2020 9:00 PM [employer]ONMENT[employer] Weight 72.3 kg (159 lb 8 oz) 05/16/2020 6:39 AM [employer]ONMENTAL STUD[employer] Height 180.3 cm (5' 11") 05/04/2020 11:43 PM [employer]ONMENTAL [employer] Body Mass Index 22.25 05/04/2020 11:43 PM [employer]MENT[employer] Plan of Treatment Date Type Specialty Care Team Description 06/03/2020 Office Visit Cardiology Edith, Rony chambers MD [address] [facility] [address] [place] [address] [phone] Health Maintenance Due Date Last Done Comments COLON CANCER SCREENING COLONOSCOPY 1950 DIABETIC EYE EXAM 1959 DIABETIC FOOT EXAM 1959 URINE MICROALBUMIN 1959 PNEUMOCOCCAL 65+ YRS (1 of 1 - 2014 [id number]) MEDICARE ANNUAL WELLNESS (YEAR 2 or 03/26/2015 FIRST YEAR if no IPPE) INFLUENZA VACCINE (#1) 2020 HEMOGLOBIN A1C 08/07/2020 05/07/2020, 05/06/2020, 05/05/2020 Implants Implanted Type [facility] Therapist Device Identifier Shelf Model / Expiration Serial / Date Lot Material Bone Hemostasis 2.5g [id number] - [id number] IMPLANTS Laura [address] PRADHAN:BIOSCI [id number] 06/24/2024 [id number] / Implanted: Qty: 1 on 05/09/2020 by Rony Marcum MD at [facility] / [id number] W Material Bone Hemostasis 2.5g [id number] - [id number] IMPLANTS N/A : LORNE:BRANDON [id number] 06/24/2024 [id number] / Implanted: Qty: 1 on 05/09/2020 by Rony Marcum MD at [facility] Chest / [id number] W Procedures Procedure Name Priority Date/Time Associated Diagnosis Comme nts POCT-GLUCOSE METER Routine 05/18/2020 11:38 AM Re sults for this [employer] procedure are i n the results section. POCT-GLUCOSE METER Routine 05/18/2020 7:18 AM Re sults for this [employer] procedure are i n the results section. POCT-GLUCOSE METER Routine 05/18/2020 4:41 AM Re sults for this [employer] procedure are i n the results section. POCT-GLUCOSE METER Routine 05/17/2020 8:43 PM Re sults for this [employer] procedure are i n the results section. POCT-GLUCOSE METER Routine 05/17/2020 4:34 PM Re sults for this [employer] procedure are i n the results section. POCT-GLUCOSE METER Routine 05/17/2020 11:21 AM Re sults for this [employer] procedure are i n the results section. POCT-GLUCOSE METER Routine 05/17/2020 7:54 AM Re sults for this [employer] procedure are i n the results section. MAGNESIUM Routine 05/17/2020 4:56 AM Results for this [employer] procedure are i n the results section. CBC (HEMOGRAM ONLY) Routine 05/17/2020 4:56 AM R esults for this [employer]ONMENT[employer] procedure are i n the results section. BASIC METABOLIC Routine 05/17/2020 4:56 AM Resul ts for this PANEL (7) [employer] procedure are i n the results section. POCT-GLUCOSE METER Routine 05/16/2020 6:06 PM Re sults for this [employer] procedure are i n the results section. POCT-GLUCOSE METER Routine 05/16/2020 5:17 PM Re sults for this [employer] procedure are i n the results section. POCT-GLUCOSE METER Routine 05/16/2020 11:57 AM Re sults for this [employer] procedure are i n the results section. POCT-GLUCOSE METER Routine 05/16/2020 7:55 AM Re sults for this [employer] procedure are i n the results section. MAGNESIUM Routine 05/16/2020 6:16 AM Results for this [employer] procedure are i n the results section. CBC (HEMOGRAM ONLY) Routine 05/16/2020 6:16 AM R esults for this [employer] procedure are i n the results section. BASIC METABOLIC Routine 05/16/2020 6:16 AM Resul ts for this PANEL (7) [employer] procedure are i n the results section. POCT-GLUCOSE METER Routine 05/15/2020 9:13 PM Re sults for this [employer] procedure are i n the results section. POCT-GLUCOSE METER Routine 05/15/2020 4:59 PM Re sults for this [employer] procedure are i n the results section. MAGNESIUM Routine 05/15/2020 11:00 AM Results for this [employer] procedure are i n the results section. CBC (HEMOGRAM ONLY) Routine 05/15/2020 11:00 AM R esults for this [employer]ONMENT[employer] procedure are i n the results section. BASIC METABOLIC Routine 05/15/2020 11:00 AM Resul ts for this PANEL (7) [employer] procedure are i n the results section. POCT-GLUCOSE METER Routine 05/15/2020 7:28 AM Re sults for this [employer] procedure are i n the results section. POCT-GLUCOSE METER Routine 05/14/2020 9:56 PM Re sults for this [employer] procedure are i n the results section. POCT-GLUCOSE METER Routine 05/14/2020 3:49 PM Re sults for this [employer]ON[employer] procedure are i n the results section. XR CHEST 1 VIEW Routine 05/14/2020 2:49 PM Resul ts for this PORTABLE/BEDSIDE [employer] procedure a re in the results section. CBC (HEMOGRAM ONLY) STAT 05/14/2020 1:13 PM R esults for this [employer] procedure are i n the results section. POCT-GLUCOSE METER Routine 05/14/2020 12:38 PM Re sults for this [employer] procedure are i n the results section. BASIC METABOLIC Routine 05/14/2020 11:13 AM Resul ts for this PANEL (7) [employer] procedure are i n the results section. ECG 12-LEAD Routine 05/14/2020 10:34 AM [employer] Procedure Note - Interface, External Ris In - 05/15/2020 1:43 PM [employer]MENT[employer] Ventricular Rate 78 BPM Atrial Rate 78 BPM P-R Interval 152 ms QRS Duration 78 ms Q-T Interval 376 ms QTC Calculation(Bazett) 428 ms P [place] 22 degrees R [place] 35 degrees T [place] 11 degrees Normal sinus rhythm Septal infarct , age undeter mined Abnormal ECG When compared with ECG of 17:02, Significant changes have occ urred ECG 12-LEAD Routine 05/14/2020 10:34 Results for AM [employer] this procedure are in the results section. POCT-GLUCOSE METER Routine 05/14/2020 7:48 Resul ts for AM [employer] this procedure are in the results section. POCT-GLUCOSE METER Routine 05/13/2020 8:02 Resul ts for PM [employer] this procedure are in the results section. POCT-GLUCOSE METER Routine 05/13/2020 4:58 Resul ts for PM [employer] this procedure are in the results section. SARS-COV2/RT-PCR Routine 05/13/2020 4:46 Results for ([facility]) PM [employer]ONMENT[employer] this proce dure are in the results section. XR CHEST 1 VIEW Routine 05/13/2020 1:18 Results for PORTABLE/BEDSIDE PM [employer]MENT[employer] this proced ure are in the results section. POCT-GLUCOSE METER Routine 05/13/2020 12:33 Resul ts for PM [employer] this procedure are in the results section. POCT-GLUCOSE METER Routine 05/13/2020 7:42 Resul ts for AM [employer] this procedure are in the results section. POCT-GLUCOSE METER Routine 05/12/2020 8:52 Resul ts for PM [employer] this procedure are in the results section. OSMOLALITY, URINE Routine 05/12/2020 5:07 Result s for PM [employer] this procedure are in the results section. URINALYSIS W/ REFLEX Routine 05/12/2020 5:07 Res ults for URINE CULTURE PM [employer] this procedure are in the results section. CREATININE, RANDOM Routine 05/12/2020 5:07 Resul ts for URINE PM [employer] this procedure are in the results section. SODIUM, RANDOM URINE Routine 05/12/2020 5:07 Res ults for PM [employer] this procedure are in the results section. URINE CULTURE Routine 05/12/2020 5:07 Results fo r PM [employer]MENT[employer] this procedure are in the results section. POCT-GLUCOSE METER Routine 05/12/2020 5:02 Resul ts for PM [employer] this procedure are in the results section. POCT-GLUCOSE METER Routine 05/12/2020 12:25 Resul ts for PM [employer] this procedure are in the results section. COMPREHENSIVE STAT 05/12/2020 9:15 Results fo r METABOLIC PANEL AM [employer] this procedu re are in the results section. CBC (HEMOGRAM ONLY) STAT 05/12/2020 9:15 Resu lts for AM [employer]MENT[employer] this procedure are in the results section. CORTISOL Routine 05/12/2020 9:14 Results for AM [employer]MENT[employer] this procedure are in the results section. POCT-GLUCOSE METER Routine 05/12/2020 7:19 Resul ts for AM [employer] this procedure are in the results section. CALCIUM, IONIZED Routine 05/12/2020 4:41 Results for AM [employer] this procedure are in the results section. XR CHEST 1 VIEW Routine 05/12/2020 4:33 Results for PORTABLE/BEDSIDE AM [employer]ONMENT[employer]UDIES this proced ure are in the results section. POCT-GLUCOSE METER Routine 05/11/2020 9:18 Resul ts for PM [employer] this procedure are in the results section. POCT-GLUCOSE METER Routine 05/11/2020 5:41 Resul ts for PM [employer]MENT[employer] this procedure are in the results section. SARS-COV2/RT-PCR Routine 05/11/2020 4:14 Results for ([facility]) PM [employer]ONMENT[employer] this proce dure are in the results section. POCT-GLUCOSE METER Routine 05/11/2020 11:30 Resul ts for AM [employer]MENT[employer] this procedure are in the results section. XR CHEST 1 VIEW COOPER 05/11/2020 9:00 Results for PORTABLE/BEDSIDE AM [employer]ONMENT[employer] this proced ure are in the results section. POCT-GLUCOSE METER Routine 05/11/2020 8:45 Resul ts for AM [employer]MENT[employer] this procedure are in the results section. CALCIUM, IONIZED Routine 05/11/2020 4:44 Results for AM [employer]MENT[employer] this procedure are in the results section. CBC (HEMOGRAM ONLY) Routine 05/11/2020 4:44 Resu lts for AM [employer]ONMENT[employer]UD[employer] this procedure are in the results section. PHOSPHORUS Routine 05/11/2020 4:44 Results for AM [employer] this procedure are in the results section. MAGNESIUM Routine 05/11/2020 4:44 Results for AM [employer] this procedure are in the results section. BASIC METABOLIC Routine 05/11/2020 4:44 Results for PANEL (7) AM [employer] this procedure are in the results section. PREPARE RBC STAT 05/10/2020 11:54 Results for PM [employer] this procedure are in the results section. PREPARE PLASMA STAT 05/10/2020 11:54 Results f or PM [employer]MENT[employer] this procedure are in the results section. PREPARE RBC STAT 05/10/2020 11:54 Results for PM [employer] this procedure are in the results section. POCT-GLUCOSE METER Routine 05/10/2020 9:22 Resul ts for PM [employer] this procedure are in the results section. POCT-GLUCOSE METER Routine 05/10/2020 4:24 Resul ts for PM [employer] this procedure are in the results section. CALCIUM, IONIZED Routine 05/10/2020 2:39 Results for PM [employer] this procedure are in the results section. POCT-GLUCOSE METER Routine 05/10/2020 11:19 Resul ts for AM [employer]MENT[employer] this procedure are in the results section. PLATELET COUNT Routine 05/10/2020 8:06 Results f or AM [employer]ONMENT[employer] this procedure are in the results section. FIBRINOGEN Routine 05/10/2020 8:06 Results for AM [employer]ONMENT[employer] this procedure are in the results section. APTT Routine 05/10/2020 8:06 Results for AM [employer] this procedure are in the results section. PROTHROMBIN TIME/INR Routine 05/10/2020 8:06 Res ults for AM [employer]ONMENT[employer] this procedure are in the results section. POCT-GLUCOSE METER Routine 05/10/2020 8:05 Resul ts for AM [employer]ONMENT[employer] this procedure are in the results section. CBC W/PLT COUNT & Routine 05/10/2020 3:45 Result s for AUTO DIFFERENTIAL AM [employer]MENT[employer] this proce dure are in the results section. TYPE AND SCREEN, COOPER 05/10/2020 3:45 Results for AUTOMATED AM [employer]ONMENT[employer] this procedure are in the results section. BLOOD GAS, ARTERIAL Routine 05/10/2020 3:45 Resu lts for AM [employer]ONMENT[employer] this procedure are in the results section. CALCIUM, IONIZED Routine 05/10/2020 3:45 Results for AM [employer] this procedure are in the results section. PHOSPHORUS Routine 05/10/2020 3:45 Results for AM [employer]MENT[employer] this procedure are in the results section. MAGNESIUM Routine 05/10/2020 3:45 Results for AM [employer] this procedure are in the results section. CBC W/PLT COUNT & Routine 05/10/2020 3:45 Result s for AUTO DIFFERENTIAL AM [employer]ON[employer] this proce dure are in the results section. BASIC METABOLIC Routine 05/10/2020 3:45 Results for PANEL (7) AM [employer] this procedure are in the results section. XR CHEST 1 VIEW Routine 05/10/2020 1:12 Results for PORTABLE/BEDSIDE AM [employer] this proced ure are in the results section. CALCIUM, IONIZED STAT 05/09/2020 9:12 Results for PM [employer] this procedure are in the results section. PHOSPHORUS STAT 05/09/2020 9:12 Results for PM [employer] this procedure are in the results section. MAGNESIUM STAT 05/09/2020 9:12 Results for PM [employer] this procedure are in the results section. BASIC METABOLIC STAT 05/09/2020 9:12 Results for PANEL (7) PM [employer] this procedure are in the results section. HGB/HCT (H&H) - STAT STAT 05/09/2020 9:12 Res ults for LAB PM [employer] this procedure are in the results section. GLUCOSE-STAT LAB STAT 05/09/2020 9:12 Results for PM [employer] this procedure are in the results section. POTASSIUM-STAT LAB STAT 05/09/2020 9:12 Resul ts for PM [employer] this procedure are in the results section. SODIUM NA-STAT LAB STAT 05/09/2020 9:12 Resul ts for PM [employer] this procedure are in the results section. BLOOD GAS, ARTERIAL STAT 05/09/2020 9:12 Resu lts for PM [employer] this procedure are in the results section. BLOOD GAS, ARTERIAL STAT 05/09/2020 9:12 Resu lts for PM [employer] this procedure are in the results section. POCT-GLUCOSE METER Routine 05/09/2020 8:04 Resul ts for PM [employer] this procedure are in the results section. BLOOD GAS, ARTERIAL STAT 05/09/2020 7:01 Resu lts for PM [employer] this procedure are in the results section. POCT-GLUCOSE METER Routine 05/09/2020 6:47 Resul ts for PM [employer] this procedure are in the results section. POCT-GLUCOSE METER Routine 05/09/2020 4:25 Resul ts for PM [employer] this procedure are in the results section. XR CHEST 1 VIEW STAT 05/09/2020 3:46 Results for PORTABLE/BEDSIDE PM [employer] this proced ure are in the results section. CBC W/PLT COUNT & STAT 05/09/2020 3:32 Result s for AUTO DIFFERENTIAL PM [employer] this proce dure are in the results section. CBC W/PLT COUNT & STAT 05/09/2020 3:32 Result s for AUTO DIFFERENTIAL PM [employer] this proce dure are in the results section. LACTIC ACID, STAT 05/09/2020 3:30 Results for ARTERIAL PM [employer] this procedure are in the results section. OXYGEN SATURATION, STAT 05/09/2020 3:30 Resul ts for MEASURED PM [employer] this procedure are in the results section. PROTHROMBIN TIME/INR Routine 05/09/2020 3:30 Res ults for PM [employer] this procedure are in the results section. APTT Routine 05/09/2020 3:30 Results for PM [employer] this procedure are in the results section. PHOSPHORUS Routine 05/09/2020 3:30 Results for PM [employer] this procedure are in the results section. MAGNESIUM Routine 05/09/2020 3:30 Results for PM [employer] this procedure are in the results section. BLOOD GAS, ARTERIAL STAT 05/09/2020 3:30 Resu lts for PM [employer] this procedure are in the results section. BASIC METABOLIC STAT 05/09/2020 3:30 Results for PANEL (7) PM [employer] this procedure are in the results section. CALCIUM, IONIZED Routine 05/09/2020 3:29 Results for PM [employer] this procedure are in the results section. TRANSFUSE PLASMA Routine 05/09/2020 1:53 PM [employer]MENT[employer]IES TRANSFUSE Routine 05/09/2020 1:53 LEUKO-REDUCED RED PM [employer]ONMENT[employer]UDIES BLOOD CELLS POCT-ACT Routine 05/09/2020 1:41 Results for PM [employer] this procedure are in the results section. HGB/HCT (H&H) - STAT STAT 05/09/2020 1:34 Res ults for LAB PM [employer] this procedure are in the results section. GLUCOSE-STAT LAB STAT 05/09/2020 1:34 Results for PM [employer] this procedure are in the results section. POTASSIUM-STAT LAB STAT 05/09/2020 1:34 Resul ts for PM [employer] this procedure are in the results section. SODIUM NA-STAT LAB STAT 05/09/2020 1:34 Resul ts for PM [employer] this procedure are in the results section. BLOOD GAS, ARTERIAL STAT 05/09/2020 1:34 Resu lts for PM [employer] this procedure are in the results section. PLATELET COUNT STAT 05/09/2020 1:34 Results f or PM [employer] this procedure are in the results section. FIBRINOGEN STAT 05/09/2020 1:34 Results for PM [employer] this procedure are in the results section. PT/APTT STAT 05/09/2020 1:34 Results for PM [employer] this procedure are in the results section. BLOOD GAS, ARTERIAL STAT 05/09/2020 1:34 Resu lts for PM [employer] this procedure are in the results section. CBC W/PLT COUNT & Routine 05/09/2020 1:34 Result s for AUTO DIFFERENTIAL PM [employer] this proce dure are in the results section. CBC W/PLT COUNT & STAT Add-on 05/09/2020 1:34 Result s for AUTO DIFFERENTIAL PM [employer] this proce dure are in the results section. TRANSFUSE PLASMA Routine 05/09/2020 1:19 PM [employer] POCT-ACT Routine 05/09/2020 1:16 Results for PM [employer] this procedure are in the results section. HGB/HCT (H&H) - STAT STAT 05/09/2020 1:13 Res ults for LAB PM [employer] this procedure are in the results section. GLUCOSE-STAT LAB STAT 05/09/2020 1:13 Results for PM [employer] this procedure are in the results section. POTASSIUM-STAT LAB STAT 05/09/2020 1:13 Resul ts for PM [employer] this procedure are in the results section. SODIUM NA-STAT LAB STAT 05/09/2020 1:13 Resul ts for PM [employer] this procedure are in the results section. 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 POCT-ACT Routine 05/09/2020 12:50 Results for PM [employer]ONMENT[employer]IES this procedure are in the results section. HGB/HCT (H&H) - STAT STAT 05/09/2020 12:45 Res ults for LAB PM [employer] ENVIRONMENT[employer]UDIES this procedure are in the results section. GLUCOSE-STAT LAB STAT 05/09/2020 12:45 Results for PM [employer]ONMENT[employer]IES this procedure are in the results section. POTASSIUM-STAT LAB STAT 05/09/2020 12:45 Resul ts for PM [employer] ENVIRONMENT[employer]IES this procedure are in the results section. SODIUM NA-STAT LAB STAT 05/09/2020 12:45 Resul ts for PM [employer] ENVIRONMENTAL [employer]IES this procedure are in the results section. BLOOD GAS, ARTERIAL STAT 05/09/2020 12:45 Resu lts for PM [employer] EN[employer]ONMENT[employer]IES this procedure are in the results section. BLOOD GAS, ARTERIAL STAT 05/09/2020 12:45 Resu lts for PM [employer] ENVIRONMENTAL [employer]UDIES this procedure are in the results section. 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 BLOOD GAS, VENOUS STAT 05/09/2020 12:07 Result s for PM [employer] ENV[employer]ONMENT[employer]IES this procedure are in the results section. HGB/HCT (H&H) - STAT STAT 05/09/2020 12:07 Res ults for LAB PM [employer] ENVIRONMENTAL STUDIES this procedure are in the results section. GLUCOSE-STAT LAB STAT 05/09/2020 12:07 Results for PM [employer]ONMENTAL [employer]IES this procedure are in the results section. POTASSIUM-STAT LAB STAT 05/09/2020 12:07 Resul ts for PM [employer] ENVIRONMENTAL STUDIES this procedure are in the results section. SODIUM NA-STAT LAB STAT 05/09/2020 12:07 Resul ts for PM PROF[employer] OF ENVIRONMENTAL STUDIES this procedure are in the results section. BLOOD GAS, ARTERIAL STAT 05/09/2020 12:07 Resu lts for PM [employer] ENVIRONMENTAL [employer]UDIES this procedure are in the results section. BLOOD GAS, ARTERIAL STAT 05/09/2020 12:07 Resu lts for PM [employer] ENVIRONMENTAL STUDIES this procedure are in the results section. TRANSFUSE Routine 05/09/2020 12:03 LEUKO-REDUCED RED PM PROFESSOR OF ENVIRONMENTAL STUDIES BLOOD CELLS POCT-ACT Routine 05/09/2020 11:35 Results for AM PROF[employer] ENVIRONMENTAL STUDIES this procedure are in the results section. HGB/HCT (H&H) - STAT STAT 05/09/2020 10:40 Res ults for LAB AM [employer] ENVIRONMENTAL [employer]UDIES this procedure are in the results section. GLUCOSE-STAT LAB STAT 05/09/2020 10:40 Results for AM [employer] ENVIRONMENTAL [employer]UDIES this procedure are in the results section. POTASSIUM-STAT LAB STAT 05/09/2020 10:40 Resul ts for AM PROF[employer] ENVIRONMENTAL STUDIES this procedure are in the results section. SODIUM NA-STAT LAB STAT 05/09/2020 10:40 Resul ts for AM PROF[employer] ENVIRONMENTAL STUDIES this procedure are in the results section. BLOOD GAS, ARTERIAL STAT 05/09/2020 10:40 Resu lts for AM PROF[employer] ENVIRONMENTAL [employer]UDIES this procedure are in the results section. BLOOD GAS, ARTERIAL STAT 05/09/2020 10:40 Resu lts for AM PROF[employer] ENVIRONMENTAL STUDIES this procedure are in the results section. 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 PHOSPHORUS STAT Add-on 05/09/2020 8:22 AM PROFESSOR OF ENVIRONMENTAL STUDIES Resu lts for this procedure are i n the results section . MAGNESIUM STAT Add-on 05/09/2020 8:22 AM PROFESSOR OF ENVIRONMENTAL STUDIES Resu lts for this procedure are i n the results section . CBC W/PLT COUNT & AUTO Routine 05/09/2020 8:22 AM PROFESSOR OF ENVIRONMENTAL STUDIES Results for this DIFFERENTIAL procedure are i n the results section . BASIC METABOLIC PANEL (7) Routine 05/09/2020 8:22 AM PROFESSOR OF ENVIRONMENTAL STUDIES Results for this procedure are i n the results section . PLATELET AGGREGATION: AP Routine 05/09/2020 8:22 AM PROFESSOR OF ENVIRONMENTAL STUDIES Results for this FUNCTION SCREEN procedure ar e in the results section . POCT-GLUCOSE METER Routine 05/09/2020 7:20 AM PROFESSOR OF ENVIRONMENTAL STUDIES Results for this procedure are i n the results section . POCT-GLUCOSE METER Routine 05/08/2020 9:15 PM PROFESSOR OF ENVIRONMENTAL STUDIES Results for this procedure are i n the results section . POCT-GLUCOSE METER Routine 05/08/2020 3:54 PM PROFESSOR OF ENVIRONMENTAL STUDIES Results for this procedure are i n the results section . POCT-GLUCOSE METER Routine 05/08/2020 12:12 PM PROFESSOR OF ENVIRONMENTAL STUDIES Results for this procedure are i n the results section . CBC W/PLT COUNT & AUTO Routine 05/08/2020 11:40 AM PROFESSOR OF ENVIRONMENTAL STUDIES Results for this DIFFERENTIAL procedure are i n the results section . CBC W/PLT COUNT & AUTO Routine 05/08/2020 11:40 AM PROFESSOR OF ENVIRONMENTAL STUDIES Results for this DIFFERENTIAL procedure are i n the results section . BASIC METABOLIC PANEL (7) Routine 05/08/2020 11:40 AM PROFESSOR OF ENVIRONMENTAL STUDIES Results for this procedure are i n the results section . PLATELET AGGREGATION: Routine 05/08/2020 11:40 AM PROFESSOR OF ENVIRONMENTAL STUDIES Results for this FUNCTION SCREEN procedure ar e in the results section . POCT-GLUCOSE METER Routine 05/08/2020 8:11 AM PROFESSOR OF ENVIRONMENTAL STUDIES Results for this procedure are i n the results section . POCT-GLUCOSE METER Routine 05/07/2020 9:01 PM PROF[employer]OR OF ENVIRONMENTAL STUDIES Results for this procedure are i n the results section . HEMOGLOBIN A1C AP Routine 05/07/2020 6:17 PM PROFESSOR OF ENVIRONMENTAL STUDIES Re sults for this procedure are i n the results section . POCT-GLUCOSE METER Routine 05/07/2020 5:15 PM PROF[employer]OR OF ENVIRONMENTAL STUDIES Results for this procedure are i n the results section . ECG 12-LEAD Routine 05/07/2020 5:02 PM PROFESSOR [employer] ENVIRONMENTAL STUDIES Procedure Note - Interface, External Ris In - 05/10/2020 11:03 AM PROFESSOR OF ENVIRONMENTAL STUDIES Ventricular Rate 81 BPM Atrial Rate 81 BPM P-R Interval 148 ms QRS Duration 84 ms Q-T Interval 370 ms QTC Calculation(Bazett) 429 ms P [place] 30 degrees R [place] 24 degrees T [place] 18 degrees Sinus rhythm with occasional Premature ventricular complexes Otherwise normal ECG When compared with ECG of 18:39, No significant change was fo und ECG 12-LEAD Routine 05/07/2020 5:02 PM PROFESSOR OF ENVIRONMENTAL STUDIES Resu lts for this procedure are i n the results section . APTT Routine 05/07/2020 4:16 PM PROFESSOR OF ENVIRONMENTAL STUDIES Resu lts for this procedure are i n the results section . PROTHROMBIN TIME/INR Routine 05/07/2020 4:16 PM PROFESSOR [employer] ENVIRONMENTAL STUDIES Results for this procedure are i n the results section . POCT-GLUCOSE METER Routine 05/07/2020 12:38 PM PROFESSOR OF ENVIRONMENTAL STUDIES Results for this procedure are i n the results section . CBC W/PLT COUNT & AUTO Routine 05/07/2020 6:36 AM PROFESSOR OF ENVIRONMENTAL STUDIES Results for this DIFFERENTIAL procedure are i n the results section . LIPID PANEL Add-On 05/07/2020 6:36 AM PROFESSOR OF ENVIRONMENTAL STUDIES Resu lts for this procedure are i n the results section . CBC W/PLT COUNT & AUTO Routine 05/07/2020 6:36 AM PROFESSOR OF ENVIRONMENTAL STUDIES Results for this DIFFERENTIAL procedure are i n the results section . MAGNESIUM Routine 05/07/2020 6:36 AM PROFESSOR OF ENVIRONMENTAL STUDIES Resu lts for this procedure are i n the results section . BASIC METABOLIC PANEL (7) Routine 05/07/2020 6:36 AM PROFESSOR [employer] ENVIRONMENTAL STUDIES Results for this procedure are i n the results section . PLATELET AGGREGATION: Routine 05/07/2020 6:35 AM PROFESSOR OF ENVIRONMENTAL STUDIES Results for this FUNCTION SCREEN procedure ar e in the results section . C. DIFFICILE GDH TOXIN Routine 05/06/2020 9:48 PM PROFESSOR [employer] ENVIRONMENTAL STUDIES Results for this procedure are i n the results section . POCT-GLUCOSE METER Routine 05/06/2020 9:03 PM PROF[employer] ENVIRONMENTAL STUDIES Results for this procedure are i n the results section . ABORH, MANUAL STAT 05/06/2020 8:41 PM PROFESSOR OF ENVIRONMENTAL STUDIES Res ults for this procedure are i n the results section . SARS-COV2/RT-PCR ([facility] & Routine 05/06/2020 8:41 PM PROFESSOR OF ENVIRONMENTAL STUDIES Results for this REF LABS) procedure are i n the results section . POCT-GLUCOSE METER Routine 05/06/2020 6:13 PM PROFESSOR OF ENVIRONMENTAL STUDIES Results for this procedure are i n the results section . XR CHEST 2 VIEWS Routine 05/06/2020 5:14 PM PROFESSOR OF ENVIRONMENTAL STUDIES Results for this procedure are i n the results section . HC VENOUS DOPPLER EXT INGA STAT 05/06/2020 5:00 PM PROFESSOR OF ENVIRONMENTAL STUDIES Results for this procedure are i n the results section . HC CAROTID DOPPLER INGA STAT 05/06/2020 5:00 PM PROFESSOR OF ENVIRONMENTAL STUDIES Results for this procedure are i n the results section . HC ARTERIAL DOPPLER LEGS Routine 05/06/2020 5:00 PM PROFESSOR OF ENVIRONMENTAL STUDIES Results for this INGA procedure are i n the results section . HC ARTERIAL(NICOLE W Routine 05/06/2020 3:57 PM PROFESSOR OF ENVIRONMENTAL STUDIES Results for this DOPPLER)ONLY procedure are i n the results section . TYPE AND SCREEN, AUTOMATED Routine 05/06/2020 1:01 PM PROFESSOR [employer] ENVIRONMENTAL STUDIES Results for this procedure are i n the results section . HEMOGLOBIN A1C Routine 05/06/2020 1:01 PM PROFESSOR OF ENVIRONMENTAL STUDIES Re sults for this procedure are i n the results section . POCT-GLUCOSE METER Routine 05/06/2020 11:40 AM PROFESSOR OF ENVIRONMENTAL STUDIES Results for this procedure are i n the results section . POCT-GLUCOSE METER Routine 05/06/2020 8:47 AM PROFESSOR OF ENVIRONMENTAL STUDIES Results for this procedure are i n the results section . CBC W/PLT COUNT & AUTO Routine 05/06/2020 6:05 AM PROFESSOR OF ENVIRONMENTAL STUDIES Results for this DIFFERENTIAL procedure are i n the results section . CBC W/PLT COUNT & AUTO Routine 05/06/2020 6:05 AM PROFESSOR OF ENVIRONMENTAL STUDIES Results for this DIFFERENTIAL procedure are i n the results section . MAGNESIUM Routine 05/06/2020 6:05 AM PROFESSOR OF ENVIRONMENTAL STUDIES Resu lts for this procedure are i n the results section . BASIC METABOLIC PANEL (7) Routine 05/06/2020 6:05 AM PROFESSOR OF ENVIRONMENTAL STUDIES Results for this procedure are i n the results section . POCT-GLUCOSE METER Routine 05/05/2020 8:59 PM PROFESSOR [employer] ENVIRONMENTAL STUDIES Results for this procedure are i n the results section . PLATELET AGGREGATION: STAT 05/05/2020 8:42 PM PROFESSOR [employer] ENVIRONMENTAL STUDIES Results for this FUNCTION SCREEN procedure ar e in the results section . ECG 12-LEAD Routine 05/05/2020 6:39 PM PROFESSOR [employer] ENVIRONMENTAL STUDIES Procedure Note - Interface, External Ris In - 05/05/2020 8:46 PM PROFESSOR OF ENVIRONMENTAL STUDIES Ventricular Rate 78 BPM Atrial Rate 78 BPM P-R Interval 144 ms QRS Duration 78 ms Q-T Interval 360 ms QTC Calculation(Bazett) 410 ms P [place] 24 degrees R [place] 13 degrees T [place] 18 degrees Sinus rhythm with occasional Premature ventricular complexes Otherwise normal ECG No previous ECGs available ECG 12-LEAD Routine 05/05/2020 6:39 PM PROFESSOR OF ENVIRONMENTAL STUDIES Resu lts for this procedure are i n the results section . POCT-GLUCOSE METER Routine 05/05/2020 4:54 PM PROFESSOR [employer] ENVIRONMENTAL STUDIES Results for this procedure are i n the results section . 2D ECHO W/ DOPPLER COOPER 05/05/2020 1:16 PM PROFESSOR OF ENVIRONMENTAL STUDIES Results for this (CW/PW/COLOR) procedure are in the results section . POCT-GLUCOSE METER Routine 05/05/2020 11:57 AM PROFESSOR OF ENVIRONMENTAL STUDIES Results for this procedure are i n the results section . 2D ECHO W/ DOPPLER STAT 05/05/2020 11:33 AM PROFESSOR OF ENVIRONMENTAL STUDIES (CW/PW/COLOR) CBC W/PLT COUNT & AUTO Routine 05/05/2020 5:20 AM PROFESSOR OF ENVIRONMENTAL STUDIES Results for this DIFFERENTIAL procedure are i n the results section . CBC W/PLT COUNT & AUTO Routine 05/05/2020 5:20 AM PROFESSOR OF ENVIRONMENTAL STUDIES Results for this DIFFERENTIAL procedure are i n the results section . PROTHROMBIN TIME/INR Routine 05/05/2020 5:20 AM PROFESSOR OF ENVIRONMENTAL STUDIES Results for this procedure are i n the results section . HEMOGLOBIN A1C Routine 05/05/2020 5:20 AM PROFESSOR OF ENVIRONMENTAL STUDIES Re sults for this procedure are i n the results section . LIPID PANEL Routine 05/05/2020 5:20 AM PROFESSOR OF ENVIRONMENTAL STUDIES Resu lts for this procedure are i n the results section . MAGNESIUM Routine 05/05/2020 5:20 AM PROFESSOR OF ENVIRONMENTAL STUDIES Resu lts for this procedure are i n the results section . BASIC METABOLIC PANEL (7) Routine 05/05/2020 5:20 AM PROFESSOR [employer] ENVIRONMENTAL STUDIES Results for this procedure are i n the results section . after 05/18/2019 Results POC-Glucose meter (05/18/2020 11:38 AM PROFESSOR OF ENVIRONMENTAL STUDIES)Only the most recent of52 results within the time period is included. POC-Glucose Meter 236 (H) 70 - 110 mg/dL [facility] Comment: [facility] : TESTED AT [facility] [address] [address] CENTER : Vacuum Drum Drier Operator/Instantizer Operator ID = [id number] for KAVYAChang Raul ConnNieves Specimen Blood Performing Organization Address City/[facility]/Zipcode Phone Number [address] [address] CENTER CBC (Hemogram only) (05/17/2020 4:56 AM PROFESSOR OF ENVIRONMENTAL STUDIES)Only the most recent of6 results within the time period is included. Pathologist Sig nature WBC 7.0 3.5 - 10.5 K/L [facility] RBC 3.39 (L) 4.63 - 6.08 M/L [facility] Hemoglobin 10.4 (L) 13.7 - 17.5 GM/DL [facility] Hematocrit 32.3 (L) 40.1 - 51.0 % [facility] MCV 95.3 (H) 79.0 - 92.2 fL [facility] MCH 30.7 25.7 - 32.2 pg [facility] MCHC 32.2 (L) 32.3 - 36.5 GM/DL [facility] RDW 14.0 11.6 - 14.4 % [facility] Platelets 233 150 - 450 K/CU MM [facility] MPV 9.1 (L) 9.4 - 12.4 fL [facility] nRBC 0 0 - 0 /100 WBC [facility] Specimen Blood Performing Organization Address City/State/Zipcode Phone Number [address] [address] CENTER Magnesium (05/17/2020 4:56 AM PROFESSOR OF ENVIRONMENTAL STUDIES)Only the most recent of11 resultswithin the time period is included. Pathologist Sig nature Magnesium 1.8 1.6 - 2.6 mg/dL [facility] Specimen Blood Narrative Performed At Vacuum Drum Drier Operator ID - PIAYA L [facility] Performing Organization Address [facility]/Zipcode Phone Number [facility] [address] [place] [address] CENTER Basic Metabolic Panel (05/17/2020 4:56 AM PROFESSOR OF ENVIRONMENTAL STUDIES)Only the most recent of13 results within the time period is included. Sodium 135 (L) 136 - 145 meq/L [facility] Potassium 3.5 3.5 - 5.1 meq/L [facility] Chloride 97 (L) 98 - 107 meq/L [facility] CO2 31 (H) 22 - 29 meq/L [facility] BUN 16 7 - 21 mg/dL [facility] Creatinine 0.75 0.57 - 1.25 [facility] mg/dL [facility] Glucose 123 (H) 70 - 105 mg/dL [facility] Calcium 7.9 (L) 8.4 - 10.2 [facility] mg/dL [facility] EGFR 103Comment: mL/min/1.73 sq [facility] ESTIMATED GFR IS NOT [facility] ACCURATE [place] CREATININE CLEARANCE IN PREDICTING GLOMERULAR FILTRATION RATE. ESTIMATED GFR IS NOT APPLICABLE FOR DIALYSIS PATIENTS. Specimen Blood Narrative Performed At Vacuum Drum Drier Operator ID - PIALMITA L [facility] Performing Organization Address City/[facility]/Zipcode Phone Number [facility] [address] [place] [address] CENTER XR chest 1 view portable / bedside (05/14/2020 2:49 PM PROFESSOR OF ENVIRONMENTAL STUDIES)Only the most recent of6 resultswithin the time period is included. Specimen Narrative Performed At FINAL REPORT [facility] CLINICAL HISTORY: chest pain TECHNIQUE: 1 view of the chest. COMPARISON: 05/13/2020 IMPRESSION: There is no definitive evidence for pneu mothorax. Bilateral lower lung opacities have decreased. A small l eft pleural effusion appears decreased. The cardiomediastinal silhoue tte is magnified by technique with sternotomy wires. Signed: Elaine Boogie MD Report Verified Date/Time: 05/14/2020 15:49:04 Reading Location: [facility] [employer] y Reading Room Procedure Note Interface, External Ris In - 05/14/2020 3:51 PM PROFESSOR OF ENVIRONMENTAL STUDIES FINAL REPORT CLINICAL HISTORY: chest pain TECHNIQUE: 1 view of the chest. COMPARISON: 05/13/2020 IMPRESSION: There is no definitive evidence for pneu mothorax. Bilateral lower lung opacities have decreased. A small l eft pleural effusion appears decreased. The cardiomediastinal silhoue tte is magnified by technique with sternotomy wires. Signed: Elaine Boogie MD Report Verified Date/Time: 05/14/2020 1 5:49:04 Reading Location: [facility] Reading Room Performing Organization Address City/State/Zipcode Phone Number [facility] RIS ECG 12 lead (05/14/2020 10:34 AM PROFESSOR OF ENVIRONMENTAL STUDIES)Only the most recent of3 resultswithin the time period is included. Specimen Narrative Performed At Ventricular Rate 78 BPM [facility] Atrial Rate 78 BPM P-R Interval 152 ms QRS Duration 78 ms Q-T Interval 376 ms QTC Calculation(Bazett) 428 ms P [place] 22 degrees R [place] 35 degrees T [place] 11 degrees Normal sinus rhythm Low voltage QRS Abnormal ECG When compared with ECG of 07-MAY-2020 17 :02, Significant changes have occurred Confirmed by MD Guido Roberto ([id number]) on 04/26 4:15:12 PM Procedure Note Interface, External Ris In - 05/15/2020 4:15 PM PROFESSOR OF ENVIRONMENTAL STUDIES Ventricular Rate 78 BPM Atrial Rate 78 BPM P-R Interval 152 ms QRS Duration 78 ms Q-T Interval 376 ms QTC Calculation(Bazett) 428 ms P [place] 22 degrees R [place] 35 degrees T [place] 11 degrees Normal sinus rhythm Low voltage QRS Abnormal ECG When compared with ECG of 07-MAY-2020 17 :02, Significant changes have occurred Confirmed by MD Guido Roberto ([id number]) on 05/15/2020 4:15:12 PM Performing Organization Address City/State/Zipcode Phone Number GE MUSE SARS-CoV2/RT-PCR (Asymptomatic ONLY) (05/13/2020 4:46 PM PROFESSOR OF ENVIRONMENTAL STUDIES)Only the most recent of3 resultswithin the time period is included. SARS-COV2/RT-PCR Negative Not Detected, [facility] Negative, See [facility] external report CENTER for linked test SARS-COV-2 [facility] PERFORMING LAB [facility] Specimen Other - Nasopharyngeal wall structure (b mckenzie structure) Narrative Performed At Negative result for this test determines that [facility] SARS-CoV-2 RNA was not present in the specimen above the Limit of Detection (LOD). However, Negative results do not preclude SARS-CoV-2 infection and should not be used as the sole basis for treatment or patient management decisions. Negative results must be combined with clinical observations, patient history, and epidemiological information. A false negative result may occur if a specimen is improperly collected, transported or handled. A false negative result should be considered if patient's recent exposures or clinical presentation indicate that COVID-19 (SARS-CoV-2) is likely and diagnostic tests for other causes of illness are negative. Re-testing should be considered in cases of suspected false negatives. The limit of detection for this assay is 100 copies/mL. This SARS CoV-2 test is a real-time RT-PCR test intended for the qualitative detection of nucleic acid from SARS-CoV-2 in a nasopharyngeal swab specimen collected from individuals suspected of COVID-19 by their healthcare provider. This test has not been Food and Drug Administration (FDA) cleared or approved. This is a modified version of an approved Emergency Use Authorization (EUA) and is in the process of review by the FDA. Once authorized by the FDA, the issued EUA will be effective until the declaration that circumstances exist justifying the authorization of the emergency use of in vitro diagnostic tests for detection and/or diagnosis of COVID-19 is terminated under Section 564(b)(2) of the Act or the EUA is revoked under Section 564(g) of the Act. Testing was performed using the Bello SARS-CoV-2 assay. Fact Sheet for Healthcare Providers: https://www.molecular.bello/robyn/II_NJGE-FtI-4 _HCP_Fact_Sheet_51-576321.pdf Fact Sheet for Healthcare Patients: https://www.ShareHows.bello/robyn/XA_WKLG-AyP-7 _Patient_Fact_Sheet_EN_51-723654N6.pdf Performing Laboratory: [address] [address] Performing Organization Address City/State/Zipcode Phone Number [address] [address] CENTER Urinalysis w/Microscopic + Reflex to Culture (05/12/2020 5:07 PM PROFESSOR OF ENVIRONMENTAL STUDIES) Color, UA Yellow [facility] Clarity, UA Hazy [facility] Specific Bertha, 1.029 1.001 - 1.035 [facility] pH, UA 6.0 5.0 - 8.0 [facility] Protein, UA 30 mg/dL (A) Negative [facility] Glucose, UA >1000 mg/dL (A) Negative [facility] Ketones, UA 10 mg/dL (A) Negative [facility] Bilirubin, UA Negative Negative [facility] Blood, UA Negative Negative [facility] Nitrite, UA Negative Negative [facility] Leukocytes, UA Negative Negative [facility] Urobilinogen, UA 0.2 0.2 - 1.0 mg/dL [facility] RBC, UA 31 /HPF [facility] WBC, UA 11 /HPF [facility] Mucus Rare [facility] Yeast Many [facility] Specimen Source [facility] Specimen Urine - Urine specimen collection, clean catch (procedure) Narrative Performed At Vacuum Drum Drier Operator ID - [auto] [facility] Vacuum Drum Drier Operator ID - tech Performing Organization Address [facility] Phone Number [address] [address] [place] Sodium, random urine (05/12/2020 5:07 PM PROFESSOR OF ENVIRONMENTAL STUDIES) Pathologist Sig nature Sodium Urine 29 meq/L [facility] [place] Specimen Urine Narrative Performed At Reference Range: No Normals [facility] Vacuum Drum Drier Operator ID - BS Performing Organization Address [facility]/Zipcode Phone Number [address] [address] [place] Osmolality, urine (05/12/2020 5:07 PM PROFESSOR OF ENVIRONMENTAL STUDIES) Pathologist Sig nature Osmolality, Ur 744 50-1,200 mOsm/kg [facility] mOsm/kg [facility] Specimen Urine Performing Organization Address [facility] Phone Number [address] [address] [place] Creatinine, random urine (05/12/2020 5:07 PM PROFESSOR OF ENVIRONMENTAL STUDIES) Pathologist Sig nature Creatinine, Ur 119.5 mg/dL [facility] [place] Specimen Urine Narrative Performed At Reference Range: No Normals [facility] Vacuum Drum Drier Operator ID - BS Performing Organization Address [facility] Phone Number [address] [address] CENTER Urine culture (05/12/2020 5:07 PM PROFESSOR OF ENVIRONMENTAL STUDIES) Pathologist Sig nature Result >100,000 col/mL [facility] Vancomycin resistant [facility] Enterococcus faecium (A) Specimen Urine - Urine specimen collection, clean catch (procedure) Narrative Performed At 10-19,000 col/mL skin craig [facility] Organism Antibiotic Method Susceptibility Vancomycin resistant Ampicillin >=32: Resis tant Enterococcus faecium Vancomycin resistant Linezolid 2: Suscepti ble Enterococcus faecium Vancomycin resistant Nitrofurantoin 64: Resista nt Enterococcus faecium Vancomycin resistant Tetracycline >=16: Resis tant Enterococcus faecium Vancomycin resistant Vancomycin >=32: Resis tant Enterococcus faecium Vancomycin resistant Daptomycin 2.0 mcg/mL: Dose Dependent Enterococcus faecium Susceptible Performing Organization Address [facility]/State/Zipcode Phone Number [facility] [address] [place] [address] CENTER Comprehensive metabolic panel (05/12/2020 9:15 AM PROFESSOR OF ENVIRONMENTAL STUDIES) Protein, Total 5.4 (L) 6.0 - 8.3 [facility] gm/dL [facility] Albumin 2.8 (L) 3.5 - 5.0 [facility] g/dL [facility] Alkaline 91 40 - 150 U/L [facility] Phosphatase [facility] Total Bilirubin 0.7 0.2 - 1.2 [facility] mg/dL [facility] Sodium 129 (L) 136 - 145 [facility] meq/L [facility] Potassium 4.3 3.5 - 5.1 [facility] meq/L [facility] Chloride 93 (L) 98 - 107 [facility] meq/L [facility] CO2 26 22 - 29 meq/L [facility] BUN 18 7 - 21 mg/dL [facility] Creatinine 1.13 0.57 - 1.25 [facility] mg/dL [facility] Glucose 322 (H) 70 - 105 [facility] mg/dL [facility] Calcium 8.5 8.4 - 10.2 [facility] mg/dL [facility] AST 13 5 - 34 U/L [facility] ALT 14 6 - 55 U/L [facility] EGFR 64Comment: mL/min/1.73 [facility] ESTIMATED GFR IS sq m [facility] NOT ACCURATE [facility]ICAL [facility]ENTER CREATININE CLEARANCE IN PREDICTING GLOMERULAR FILTRATION RATE. ESTIMATED GFR IS NOT APPLICABLE FOR DIALYSIS PATIENTS. Specimen Blood Narrative Performed At Vacuum Drum Drier Operator ID - PATRICIA C [facility] Performing Organization Address City/State/Zipcode Phone Number [address] [address] CENTER Cortisol (05/12/2020 9:14 AM PROFESSOR OF ENVIRONMENTAL STUDIES) Pathologist Sig [facility] Cortisol, Total 16.9 3.7 - 19.4 ug/dL [facility] Specimen Blood Narrative Performed At Vacuum Drum Drier Operator ID - PATRICIA Parker [facility] Performing Organization Address City/State/Zipcode Phone Number [address] [address] CENTER Calcium, Ionized (05/12/2020 4:41 AM PROFESSOR OF ENVIRONMENTAL STUDIES)Only the most recent of6 resultswithin the time period is included. Pathologist Sig [facility] Calcium, Ion 1.09 (L) 1.12 - 1.27 mmol/L [facility] pH, Blood 7.41 [facility] Specimen Blood Narrative Performed At Check serum Ionized Calcium level after 4 [facility] hours after IV Calcium replacement. Performing Organization Address City/[facility] Phone Number [address] [address] CENTER Phosphorus (05/11/2020 4:44 AM PROFESSOR OF ENVIRONMENTAL STUDIES)Only the most recent of5 resultswithin the time period is included. Pathologist Sig nature Phosphorus 2.4 2.3 - 4.7 mg/dL [facility] Specimen Blood Narrative Performed At Vacuum Drum Drier Operator ID - FELICITAS [facility] Performing Organization Address City/[facility]/Zipcode Phone Number [address] [address] CENTER Prepare plasma (05/10/2020 11:54 PM PROFESSOR OF ENVIRONMENTAL STUDIES) Pathologist Sig nature Unit ABO A Pos SAFETRACE TX UNIT NUMBER [id number] SAFETRACE TX Status RETURNED FROM ISSUE SAFETRACE TX Blood Bank Product FFP SAFETRACE TX PRODUCT CODE [id number] SAFETRACE TX Unit ABO A Pos SAFETRACE TX UNIT NUMBER [id number] SAFETRACE TX Status RETURNED FROM ISSUE SAFETRACE TX Blood Bank Product FFP SAFETRACE TX PRODUCT CODE [id number] SAFETRACE TX Unit ABO A Pos SAFETRACE TX UNIT NUMBER [id number] SAFETRACE TX Status TX_TIMEINCHART SAFETRACE TX Blood Bank Product FFP SAFETRACE TX PRODUCT CODE [id number] SAFETRACE TX Unit ABO A Pos SAFETRACE TX UNIT NUMBER [id number] SAFETRACE TX Status TX_TIMEINCHART SAFETRACE TX Blood Bank Product FFP SAFETRACE TX PRODUCT CODE [id number] SAFETRACE TX Performing Organization Address [facility] Phone Number SAFETRACE TX Prepare RBC (05/10/2020 11:54 PM PROFESSOR OF ENVIRONMENTAL STUDIES)Only the most recent of2 resultswithin the time period is included. Pathologist Sig nature CROSSMATCH COMPATIBLE SAFETRACE TX Unit ABO A Pos SAFETRACE TX UNIT NUMBER [id number] SAFETRACE TX Status TX_TIMEINCHART SAFETRACE TX Blood Bank Product RED BLOOD CELLS SAFETRACE TX PRODUCT CODE [id number] SAFETRACE TX CROSSMATCH COMPATIBLE SAFETRACE TX Unit ABO A Pos SAFETRACE TX UNIT NUMBER [id number] SAFETRACE TX Status RETURNED FROM ISSUE SAFETRACE TX Blood Bank Product RED BLOOD CELLS SAFETRACE TX PRODUCT CODE [id number] SAFETRACE TX Performing Organization Address [facility] Phone Number SAFETRACE TX aPTT (05/10/2020 8:06 AM PROFESSOR OF ENVIRONMENTAL STUDIES)Only the most recent of3 resultswithin the time period is included. Pathologist Sig nature PTT 75.3 (H) 22.5 - 36.0 seconds [facility] CENTER Specimen Blood Performing Organization Address City/[facility] Phone Number [facility] [address] [place] [address] CENTER Prothromin time/INR (05/10/2020 8:06 AM PROFESSOR OF ENVIRONMENTAL STUDIES)Only the most recent of4 results within the time period is included. Pathologist Sig nature Protime 14.9 (H) 11.9 - 14.2 seconds [facility] INR 1.20 <=5.90 [facility] Specimen Blood Narrative Performed At Effective 11/20/2018: PT Reference Range [facility] Change New: 11.9-14.2 Previous: 11.7-14.7 RECOMMENDED COUMADIN/WARFARIN INR THERAPY RANGES STANDARD DOSE: 2.0-3.0 Includes: PROPHYLAXIS for venous thrombosis, systemic embolization; TREATMENT for venous thrombosis and/or pulmonary embolus. HIGH RISK: Target INR is 2.5-3.5 for patients wiht mechanical heart valves. Performing Organization Address City/[facility] Phone Number [address] [address] CENTER Fibrinogen (05/10/2020 8:06 AM PROFESSOR OF ENVIRONMENTAL STUDIES)Only the most recent of2 resultswithin the time period is included. Pathologist Sig nature Fibrinogen 427 225 - 434 mg/dl [facility] Specimen Blood Performing Organization Address [facility] Phone Number [address] [address] CENTER Platelet count (05/10/2020 8:06 AM PROFESSOR OF ENVIRONMENTAL STUDIES)Only the most recent of2 resultswithin the time period is included. Pathologist Sig nature Platelets 160 150 - 450 K/CU [facility] Specimen Blood Narrative Performed At Vacuum Drum Drier Operator ID - [id number] [facility] Vacuum Drum Drier Operator ID - [id number] Vacuum Drum Drier Operator ID - [id number] Performing Organization Address [facility] Phone Number [address] [address] CENTER Type and screen, automated (05/10/2020 3:45 AM PROFESSOR OF ENVIRONMENTAL STUDIES)Only the most recent of2 resultswithin the time period is included. Pathologist Sig nature ABO/RH AUTOMATED A POSITIVE [facility] Ab Scrn NEGATIVE [facility] Specimen Blood Performing Organization Address [facility] Phone Number [address] [place] [address] CBC with platelet count + automated diff (05/10/2020 3:45 AM PROFESSOR OF ENVIRONMENTAL STUDIES)Only the most recent of8 resultswithin the time period is included. Pathologist Sig nature WBC 11.1 (H) 3.5 - 10.5 [facility] K/L [facility] RBC 3.24 (L) 4.63 - 6.08 [facility] M/L [facility] Hemoglobin 10.1 (L) 13.7 - 17.5 [facility] GM/DL [facility] Hematocrit 28.8 (L) 40.1 - 51.0 % [facility] MCV 88.9 79.0 - 92.2 fL [facility] MCH 31.2 25.7 - 32.2 pg [facility] MCHC 35.1 32.3 - 36.5 [facility] GM/DL [facility] RDW 13.9 11.6 - 14.4 % [facility] Platelets 131 (L) 150 - 450 K/CU [facility] MPV 9.5 9.4 - 12.4 fL [facility] nRBC 0 0 - 0 /100 WBC [facility] % Neutros 86 % [facility] % Lymphs 7 % [facility] % Monos 7 % [facility] % Eos 0 % [facility] % Baso 0 % [facility] # Neutros 9.52 (H) 1.78 - 5.38 [facility] # Lymphs 0.72 (L) 1.32 - 3.57 [facility] # Monos 0.73 0.30 - 0.82 [facility] # Eos 0.03 (L) 0.04 - 0.54 [facility] K/L [facility] # Baso 0.04 0.01 - 0.08 [facility] K/L [facility] Immature 1 0 - 1 % [facility] Granulocytes-Relative [facility] Specimen Blood Performing Organization Address City/[facility] Phone Number [address] [address] [place] Blood gas, arterial (05/10/2020 3:45 AM PROFESSOR OF ENVIRONMENTAL STUDIES)Only the most recent of9 results within the time period is included. Pathologist Sig nature pH, Arterial 7.41 7.35 - 7.45 [facility] pCO2, Arterial 39 35 - 45 mm Hg [facility] pO2, Arterial 183 (H) 80 - 90 mm Hg [facility] O2 Sat, Arterial 99.3 (H) 96.0 - 97.0 % [facility] HCO3, Arterial 25 21 - 29 mmol/L [facility] Base Excess, Arterial 0.0 -2.0 - 3.0 [facility] mmol/L [facility] Patient Temperature 36.8 [facility] FIO2 36.0 [facility] Specimen Blood, Arterial Performing Organization Address City/[facility] Phone Number [address] [address] [place] Potassium-Stat Lab (05/09/2020 9:12 PM PROFESSOR OF ENVIRONMENTAL STUDIES)Only the most recent of6 results within the time period is included. Pathologist Sig nature Potassium 3.8 3.6 - 5.5 meq/L [facility] Specimen Blood, Arterial Performing Organization Address City/[facility]/Zipcode Phone Number [address] [address] [place] Sodium Na-Stat Lab (05/09/2020 9:12 PM PROFESSOR OF ENVIRONMENTAL STUDIES)Only the most recent of6 results within the time period is included. Pathologist Sig nature Sodium 135 (L) 136 - 145 meq/L [facility] Specimen Blood, Arterial Performing Organization Address [facility] Phone Number [address] [address] [place] Glucose-Stat Lab (05/09/2020 9:12 PM PROFESSOR OF ENVIRONMENTAL STUDIES)Only the most recent of6 resultswithin the time period is included. Pathologist Sig nature Glucose 108 70 - 110 mg/dL [facility] [place] Specimen Blood, Arterial Performing Organization Address [facility] Phone Number [address] [address] [place] HGB/HCT (H&H)-Stat Lab (05/09/2020 9:12 PM PROFESSOR OF ENVIRONMENTAL STUDIES)Only the most recent of6 resultswithin the time period is included. Pathologist Sig nature Hemoglobin 11.5 (L) 13.0 - 16.8 GM/DL [facility] Hematocrit 34.0 (L) 40.0 - 50.0 % [facility] Specimen Blood, Arterial Performing Organization Address [facility] Phone Number [address] [address] [place] Oxygen saturation, measured (05/09/2020 3:30 PM PROFESSOR OF ENVIRONMENTAL STUDIES) Pathologist Sig nature O2 Saturation (Measured) 64.4 % [facility] Specimen Blood Performing Organization Address [facility] Phone Number [address] [address] [place] Lactic Acid, Arterial (05/09/2020 3:30 PM PROFESSOR OF ENVIRONMENTAL STUDIES) Lactate, Art 0.7Comment: 0.5 - 2.2 [facility] slightly mmol/L [facility] hemolyzed [place] Specimen Blood, Arterial Narrative Performed At Vacuum Drum Drier Operator TOO - FELICITAS [facility] Performing Organization Address City/[facility]/Zipcode Phone Number [address] [address] CENTER Transfuse plasma (05/09/2020 1:53 PM PROFESSOR OF ENVIRONMENTAL STUDIES)Only the most recent of2 resultswithin the time period is included.Transfuse Leuko-Red RBC (05/09/2020 1:53 PM PROFESSOR OF ENVIRONMENTAL STUDIES) Only the most recent of4 resultswithin the time period is included.POC ACTIVATED CLOTTING TIME (05/09/2020 1:41 PM PROFESSOR OF ENVIRONMENTAL STUDIES)Only the most recent of5 resultswithin the time period is included. Activated Clotting 125 sec [facility] Comment: [facility] : 74-137 seconds, Baseline CENTER : TESTED AT [address], [address] : Vacuum Drum Drier Operator/Instantizer Operator ID = [id number] for SRINIVASAN SANDOVAL Specimen Blood Performing Organization Address [facility] Phone Number [address] [phone] CENTER PT/aPTT (05/09/2020 1:34 PM PROFESSOR OF ENVIRONMENTAL STUDIES) Pathologist Sig nature Protime 19.8 (H) 11.9 - 14.2 seconds [facility] INR 1.73 <=5.90 [facility] PTT 35.8 22.5 - 36.0 seconds [facility] Specimen Blood Narrative Performed At Effective 11/20/2018: PT Reference Range [facility] Change New: 11.9-14.2 Previous: 11.7-14.7 RECOMMENDED COUMADIN/WARFARIN INR THERAPY RANGES STANDARD DOSE: 2.0-3.0 Includes: PROPHYLAXIS for venous thrombosis, systemic embolization; TREATMENT for venous thrombosis and/or pulmonary embolus. HIGH RISK: Target INR is 2.5-3.5 for patients wiht mechanical heart valves. Performing Organization Address City/[facility]/Zipcode Phone Number [address] [address] CENTER Blood gas, venous (05/09/2020 12:07 PM PROFESSOR OF ENVIRONMENTAL STUDIES) Pathologist Sig nature pH, Blaze 7.33 7.32 - 7.42 [facility] pCO2, Blaze 45 41 - 51 mm Hg [facility] pO2, Blaze 48 (H) 25 - 40 mm Hg [facility] O2 Sat, Blaze 88.9 (H) 40.0 - 70.0 % [facility] HCO3, Blaze 24 21 - 29 mmol/L [facility] Base Excess, Blaze -2.6 (L) -2.0 - 3.0 [facility] mmol/L [facility] Patient Temperature 32.9 [facility] FIO2 60.0 [facility] Specimen Blood Performing Organization Address City/[facility] Phone Number [facility] [address] [place] [address] [place] Platelet Aggregation: Function Screen (05/09/2020 8:22 AM PROFESSOR OF ENVIRONMENTAL STUDIES)Only the most recent of4 resultswithin the time period is included. Pathologist: Ted Lynch MD [facility] (electronic [facility] signature) [facility] Platelets 275 150 - 430 [facility] K/CU [facility] ADP 68 62 - 100 % [facility] Platelet Rich Plasma 297 200 - 300 [facility] k/cu [facility] Plt. Function Screen Normal aggregation [facility] Interpretation results with ADP. [facility] No evidence of MEDICAL CENTER platelet dysfunction or P2Y12 inhibitor effect. Specimen Blood Narrative Performed At Platelet Function Screen results may be [facility] falsely low with platelet counts <75,000/cu mm. Performing Organization Address City/[facility]/Zipcode Phone Number [facility] [address] [place] [address] [place] Hemoglobin A1c (05/07/2020 6:17 PM PROFESSOR OF ENVIRONMENTAL STUDIES)Only the most recent of3 resultswithin the time period is included. Pathologist Sig nature Hemoglobin A1C 13.8 (H) 4.3 - 6.1 % [facility] Specimen Blood Performing Organization Address City/[facility]/Zipcode Phone Number [address] [phone] [place] Lipid panel (05/07/2020 6:36 AM PROFESSOR OF ENVIRONMENTAL STUDIES)Only the most recent of2 resultswithin the time period is included. Pathologist Sig nature Triglycerides 129 mg/dL [facility] Cholesterol 148 mg/dL [facility] [place] HDL 30 mg/dL [facility] [place] LDL Calculated 92 mg/dL [facility] [place] Specimen Blood Narrative Performed At Triglyceride Reference Range: [facility] Low Risk <150 Borderline 150-199 High Risk 200-499 Very High Risk >=500 Cholesterol Reference Range: Low Risk <200 Borderline 200-239 High Risk >240 HDL Cholesterol Reference Range: Low Risk >=60 High Risk <40 LDL Cholesterol Reference Range: Optimal <100 Near Optimal 100-129 Borderline 130-159 High 160-189 Very High >=190 Vacuum Drum Drier Operator ID - ADMIN Performing Organization Address [facility] Phone Number [address] [address] [place] Clostridium difficile [facility] Toxin (05/06/2020 9:48 PM PROFESSOR OF ENVIRONMENTAL STUDIES) C. Difficle Toxin Negative Negative [facility] C. Difficile G[facility] NegativeComment: No Negative [facility] Antigen indication of [facility] Clostridium CENTER difficile infection and no colonization. Discontinue enteric isolation and therapy. Specimen Stool - Feces (substance) Narrative Performed At Testing performed by [employer] [facility] Assay. For G[facility], published sensitivity of the assay is 98.7% compared to cytotoxicity testing. For Toxin AB, published sensitivity is 87.8% and specificity 99.4% compared to cytotoxicity testing. Verification of kit performance was done by the [facility] Microbiology Lab prior to clinical use. Performing Organization Address City/[facility] Phone Number [facility] [address] [place] [address] CENTER ABORH, manual (05/06/2020 8:41 PM PROFESSOR OF ENVIRONMENTAL STUDIES) Pathologist Sig nature ABO Grouping A [facility] [place] Rh Factor POS [facility] Specimen Blood Performing Organization Address City/State/Zipcode Phone Number [facility] [address] [place] [address] XR chest 2 views (05/06/2020 5:14 PM PROFESSOR OF ENVIRONMENTAL STUDIES) Specimen Narrative Performed At FINAL REPORT GE RIS RAD, CHEST, 2 VIEWS TECHNIQUE: Frontal and lateral views of the chest. INDICATION: pneumonia COMPARISON: None. FINDINGS: Lungs: Patchy nodular opacities in the l eft apex and left lower lobe. Streaky right suprahilar opacity, likely atelectasis/scar. Pleura: No pleural effusion or pneumotho rax. Heart and Mediastinum: Aortic knob calci fications, otherwise cardiomediastinal silhouette is within n ormal limits. Lines/Tubes: None. Soft Tissues and Bones: No acute osseous abnormality. IMPRESSION: Patchy nodular opacities in the left ape x and left lower lobe, concerning for multifocal pneumonia vers us solid lesions. Recommend follow-up PA and lateral chest radiograp hs after a course of treatment to ensure resolution or compar e with any recent outside prior exams. Signed: Luis Felipe Winters MD Report Verified Date/Time: 05/06/2020 23:11:10 Reading Location: [address] Reading Room Procedure Note Interface, External Ris In - 05/06/2020 11:13 PM PROFESSOR OF ENVIRONMENTAL STUDIES FINAL REPORT RAD, CHEST, 2 VIEWS TECHNIQUE: Frontal and lateral views of the chest. INDICATION: pneumonia COMPARISON: None. FINDINGS: Lungs: Patchy nodular opacities in the l eft apex and left lower lobe. Streaky right suprahilar opacity, likely atelectasis/scar. Pleura: No pleural effusion or pneumotho rax. Heart and Mediastinum: Aortic knob calci fications, otherwise cardiomediastinal silhouette is within n ormal limits. Lines/Tubes: None. Soft Tissues and Bones: No acute osseous abnormality. IMPRESSION: Patchy nodular opacities in the left ape x and left lower lobe, concerning for multifocal pneumonia vers us solid lesions. Recommend follow-up PA and lateral chest radiograp hs after a course of treatment to ensure resolution or compar e with any recent outside prior exams. Signed: Luis Felipe Winters MD Report Verified Date/Time: 05/06/2020 2 3:11:10 Reading Location: [facility] B1 [id number] [facility] Reading Room Performing Organization Address City/State/Zipcode Phone Number [employer] Vein Mapping Legs Bilateral (05/06/2020 5:00 PM PROFESSOR OF ENVIRONMENTAL STUDIES) Pathologist [facility] nature Ejection Fraction [facility] ECHO HEARTLAB MKCK ESSON CPACS Specimen Impressions Performed At Right Impression [facility] ECHO HEARTLAB MKCKESSON CPACS 1. There is no deep venous venous obstruction in the common femoral, profunda femoral, femoral, popliteal, posterior tibial or peroneal veins. 2. There is no superficial venous obstruction in the great saphenous vein. Left Impression 1. There is no deep venous obstruction in the common femoral, profunda femoral, femoral, popliteal, posterior tibial or peroneal veins. 2. There is no superficial venous obstruction in the great saphenous vein. Conclusions Summary Venous duplex imaging and compression of the bilateral lower extremities was performed. The veins were adequately visualized. The bilateral venous systems were patent and compressible with no evidence of thrombus. Superficial venous measurements are documented below. Signature Velocities are measured in cm/s ; Diameters are measured in cm LE Vein Mapping Superficial - Great Saphenous Vein Right Left + + + + + + + + !Location ! !Diameter !Depth ! !Diameter !Depth ! + + + + + + + + !Sapheno Femoral Junction ! !0.59 ! ! !0.47 ! ! + + + + + + + + !GSV High Thigh ! !0.21 ! ! !0.31 ! ! + + + + + + + + !GSV Mid Thigh ! !0.21 ! ! !0.24 ! ! + + + + + + + + !GSV Low Thigh ! !0.26 ! ! !0.22 ! ! + + + + + + + + !GSV Knee ! !0.24 ! ! !0.2 ! ! + + + + + + + + !GSV High Calf ! !0.17 ! ! !0.3 ! ! + + + + + + + + !GSV Mid Calf ! !0.16 ! ! !0.15 ! ! + + + + + + + + !GSV Low Calf ! !0.18 ! ! !0.15 ! ! + + + + + + + + !GSV Ankle ! !0.19 ! ! !0.2 ! ! + + + + + + + + Narrative Performed At PV LAB - Lower Extremities Vein Mapping [facility] ECHO HEARTLAB MKCKESSON [facility] Demographics Patient Name KIARRA MEDEROS Date of Study 05/06/2020 Age 70 Visit Number [id number] Gender Male Accession Number [id number] Date of 1950 Referring [facility] Room Number 1142 Physician Dining Services Manager Ame Engle, Interpreting Bettina Haas T Physician Procedure Type of Study: Veins: Lower Extremity Vein Mapping, VEIN MAPPING, LOWER EXTREMITY, BILATERAL. Indications for Study:Pre OP CABG. Patient Status:STAT. Study Location:Vascular Lab. Technical Quality:Adequate visualization . Risk Factors History of Disease + +--- -+ + !Diagnosis !Date!Comments ! + +--- -+ + !History/Risk Factors: ! !CAD, PAD, DM ! + +--- -+ + Procedure Note Interface, External Ris In - 05/07/2020 8:24 AM PROFESSOR OF ENVIRONMENTAL STUDIES PV LAB - Lower Extremities Vein Mapping Demographics Patient Name KIARRA MEDEROS Jarret e of Study 05/06/2020 Age 70 Visit Number [id number] Gen samia Male Accession Number [id number] Jarret e of 1950 Referring Clayton Merchant Caino Number 1142 Physician Dining Services Manager [facility] Bettina Haas, T Ozzie eid MD Procedure Type of Study: Veins: Lower Extremity Vein Mapping, VE IN MAPPING, LOWER EXTREMITY, BILATERAL. Indications for Study:Pre OP CABG. Patient Status:STAT. Study Location:Vascular Lab. Technical Quality:Adequate visualization . Risk Factors History of Disease + ------+----+ + !Diagnosis !Date!Comments ! + ------+----+ + !History/Risk Factors: ! !CAD, PAD, DM ! + ------+----+ + Impressions Right Impression 1. There is no deep venous venous obstru ction in the common femoral, profunda femoral, femoral, popliteal, po sterior tibial or peroneal veins. 2. There is no superficial venous obstru ction in the great saphenous vein. Left Impression 1. There is no deep venous obstruction i n the common femoral, profunda femoral, femoral, popliteal, posterior t ibial or peroneal veins. 2. There is no superficial venous obstru ction in the great saphenous vein. Conclusions Summary Venous duplex imaging and compression o f the bilateral lower extremities was performed. The veins were adequatel y visualized. The bilateral venous systems were patent and compressible wi th no evidence of thrombus. Superficial venous measurements are doc umented below. Signature Velocities are measured in cm/s ; Diamet ers are measured in cm LE Vein Mapping Superficial - Great Saphenous Vein Right Left + + + + + + + + !Location ! !Diameter !Depth ! !Diameter !Depth ! + + + + + + + + !Sapheno Femoral Junction ! !0.59 ! ! !0.47 ! ! + + + + + + + + !GSV High Thigh ! !0.21 ! ! !0.31 ! ! + + + + + + + + !GSV Mid Thigh ! !0.21 ! ! !0.24 ! ! + + + + + + + + !GSV Low Thigh ! !0.26 ! ! !0.22 ! ! + + + + + + + + !GSV Knee ! !0.24 ! ! !0.2 ! ! + + + + + + + + !GSV High Calf ! !0.17 ! ! !0.3 ! ! + + + + + + + + !GSV Mid Calf ! !0.16 ! ! !0.15 ! ! + + + + + + + + !GSV Low Calf ! !0.18 ! ! !0.15 ! ! + + + + + + + + !GSV Ankle ! !0.19 ! ! !0.2 ! ! + + + + + + + + Performing Organization Address City/State/Zipcode Phone Number [email or web address] Arterial doppler legs bilateral (05/06/2020 5:00 PM PROFESSOR OF ENVIRONMENTAL STUDIES) [facility] nature Ejection Fraction [facility] [employer] [facility] Specimen Impressions Performed At Right [facility] 1. The common femoral and poplitela arteries are patent with triphasic Doppler waveforms and calcified plaque t hroughout. 2. The profunda femoral and peroneal arteries are patent with biphasic Doppler waveforms and calcified plaque t hroughout. 3. The femoral, posterior tibial and anterior tibial arteries are patent with multiphasic Doppler waveforms and calcified plaque throughout. Left Impression 1. The common femoral, profunda femoral, femoral, popliteal and perneal arteries are patent with biphasic Doppler waveforms and calcified plaque throughout. 2. The posterior tibial and anterior tibial arteries are patent with multiphasic Doppler waveforms and calcified plaque throughout. 3. There are elevated velocities in the common femoral (251 cm/sec) and the proximal femoral (284 cm/sec) arteries. Conclusions Summary Arterial Doppler analysis was performed bilaterally. The arteries were adequately visualized. Doppler waveforms were triphasic, biphasic and multiphasic with calcified plaque throughout bilateral lower extremities. On the left, there were elevated velocities visualized in the common femoral (251 cm/sec) and femoral (284 cm/sec) arteries. Signature Velocities are measured in cm/s ; Diameters are measured in cm LE Duplex Measurements Right Left + + + + + + + + + + !Location ! !PSV !EDV !Waveform ! !PSV !EDV !Waveform ! + + + + + + + + + + !Mid Common Femoral ! !112 ! ! ! !244 ! ! ! + + + + + + + + + + !Prox PFA ! !95.1 ! ! ! !93.2 ! ! ! + + + + + + + + + + !Prox SFA ! !86.2 ! ! ! !269 ! ! ! + + + + + + + + + + !Mid SFA ! !62.5 ! ! ! !72.1 ! ! ! + + + + + + + + + + !Dist SFA ! !45.6 ! ! ! !53 ! ! ! + + + + + + + + + + !Prox Popliteal ! !56.6 ! ! ! !54.6 ! ! ! + + + + + + + + + + !Dist Popliteal ! !76.2 ! ! ! !63.9 ! ! ! + + + + + + + + + + !Prox ASSOCIATE PROFESSOR OF HISTORY ! !57.4 ! ! ! !33 ! ! ! + + + + + + + + + + !Mid ASSOCIATE PROFESSOR OF HISTORY ! !107 ! ! ! !31.4 ! ! ! + + + + + + + + + + !Dist ASSOCIATE PROFESSOR OF HISTORY ! !56.9 ! ! ! !29.1 ! ! ! + + + + + + + + + + !Prox TYLER ! !52.6 ! ! ! !87.4 ! ! ! + + + + + + + + + + !Mid TYLER ! !53.8 ! ! ! !62.7 ! ! ! + + + + + + + + + + !Dist TYLER ! !77 ! ! ! !112 ! ! ! + + + + + + + + + + !Prox Peroneal ! !36.7 ! ! ! !45.6 ! ! ! + + + + + + + + + + !Mid Peroneal ! !40.1 ! ! ! !87.4 ! ! ! + + + + + + + + + + !Dist Peroneal ! !39.7 ! ! ! !45.6 ! ! ! + + + + + + + + + + [facility] Duplex [facility] Demographics Patient Name KIARRA MEDEROS Date of Study 05/06/2020 Age 70 Visit Number [id number] Gender Male Accession Number [id number] Date of 1950 Referring [facility] Room Number 1142 Physician Joyce Dining Services Manager Ame Engle, Interpreting Bettina Haas T Physician Procedure Type of Study: Extremities Arteries: Lower Extremities Arterial Duplex, ARTERIAL DOPPLER LEGS, BILATERAL. Indications for Study:PVD and Claudicati on. Patient Status:Routine. Study Location:Vascular Lab. Technical Quality:Adequate visualization . Risk Factors History of Disease + +--- -+ + !Diagnosis !Date!Comments ! + +--- -+ + !History/Risk Factors: ! !CAD, PAD, DM ! + +--- -+ + Procedure Note Interface, External Ris In - 05/07/2020 8:23 AM PROFESSOR OF ENVIRONMENTAL STUDIES PV LAB - Lower Extremity Arterial Duplex Demographics Patient Name KIARRA MEDEROS Da te of Study 05/06/2020 Ag e 70 Visit Number [id number] Ge nder Male Accession Number [id number] Da te of 1950 Referring [facility] om Number 1142 Physician Joyce Dining Services Manager Ame Engle, In terpreting Bettina Haas RVT Ph ysician Procedure Type of Study: Extremities Arteries: Lower Extremities Arterial Duplex, ARTERIAL DOPPLER LEGS, BILATERAL. Indications for Study:PVD and Claudicati on. Patient Status:Routine. Study Location:Vascular Lab. Technical Quality:Adequate visualization . Risk Factors History of Disease + ------+----+ + !Diagnosis !Date!Comments ! + ------+----+ + !History/Risk Factors: ! !CAD, PAD, DM ! + ------+----+ + Impressions Right Impression 1. The common femoral and poplitela justin stephanie are patent with triphasic Doppler waveforms and calcified plaque t hroughout. 2. The profunda femoral and peroneal art eries are patent with biphasic Doppler waveforms and calcified plaque t hroughout. 3. The femoral, posterior tibial and ant erior tibial arteries are patent with multiphasic Doppler waveforms and c alcified plaque throughout. Left Impression 1. The common femoral, profunda femoral, femoral, popliteal and perneal arteries are patent with biphasic Dopple r waveforms and calcified plaque throughout. 2. The posterior tibial and anterior tib ial arteries are patent with multiphasic Doppler waveforms and calcif ied plaque throughout. 3. There are elevated velocities in the common femoral (251 cm/sec) and the proximal femoral (284 cm/sec) arteries. Conclusions Summary Arterial Doppler analysis was performed bilaterally. The arteries were adequately visualized. Doppler waveform s were triphasic, biphasic and multiphasic with calcified plaque throu ghout bilateral lower extremities. On the left, there were elevated veloci ties visualized in the common femoral (251 cm/sec) and femoral (284 c m/sec) arteries. Signature Velocities are measured in cm/s ; Diamet ers are measured in cm LE Duplex Measurements Right Left + + + + + + + + + + !Location ! !PSV !EDV !Waveform ! !PSV !EDV !Waveform ! + + + + + + + + + + !Mid Common Femoral ! !112 ! ! ! !244 ! ! ! + + + + + + + + + + !Prox PFA ! !95.1 ! ! ! !93.2 ! ! ! + + + + + + + + + + !Prox SFA ! !86.2 ! ! ! !269 ! ! ! + + + + + + + + + + !Mid SFA ! !62.5 ! ! ! !72.1 ! ! ! + + + + + + + + + + !Dist SFA ! !45.6 ! ! ! !53 ! ! ! + + + + + + + + + + !Prox Popliteal ! !56.6 ! ! ! !54.6 ! ! ! + + + + + + + + + + !Dist Popliteal ! !76.2 ! ! ! !63.9 ! ! ! + + + + + + + + + + !Prox ASSOCIATE PROFESSOR OF HISTORY ! !57.4 ! ! ! !33 ! ! ! + + + + + + + + + + !Mid ASSOCIATE PROFESSOR OF HISTORY ! !107 ! ! ! !31.4 ! ! ! + + + + + + + + + + !Dist ASSOCIATE PROFESSOR OF HISTORY ! !56.9 ! ! ! !29.1 ! ! ! + + + + + + + + + + !Prox TYLER ! !52.6 ! ! ! !87.4 ! ! ! + + + + + + + + + + !Mid TYLER ! !53.8 ! ! ! !62.7 ! ! ! + + + + + + + + + + !Dist TYLER ! !77 ! ! ! !112 ! ! ! + + + + + + + + + + !Prox Peroneal ! !36.7 ! ! ! !45.6 ! ! ! + + + + + + + + + + !Mid Peroneal ! !40.1 ! ! ! !87.4 ! ! ! + + + + + + + + + + !Dist Peroneal ! !39.7 ! ! ! !45.6 ! ! ! + + + + + + + + + + Performing Organization Address City/State/[facility] Phone Number [facility] Carotid doppler bilateral (05/06/2020 5:00 PM PROFESSOR OF ENVIRONMENTAL STUDIES) [facility] Sig nature Ejection Fraction [facility] Specimen Impressions Performed At Right Impression [facility] 1. There is <50% diameter reduction (approximately 38% by 2-D measurement) in the internal carotid artery with a peak velocity of 115 cm/sec and heterogeneous plaque. 2. There is non-occluding plaque in the external carotid artery. 3. There is non-occluding plaque in the common carotid artery. 4. The vertebral artery flow is antegrad e. 5. The subclavian artery is patent with a velocity of 86 cm/sec. Left Impression 1. There is <50% diameter reduction (approximately 43% by 2-D measurement) in the internal carotid artery with a peak velocity of 112 cm/sec and heterogeneous plaque. 2. There is non-occluding plaque in the external carotid artery. 3. There is non-occluding plaque in the common carotid artery. 4. The vertebral artery flow is antegrad e. 5. The subclavian artery is patent with a velocity of 142 cm/sec. Conclusions Summary Carotid duplex scanning and color flow imaging were performed bilaterally. The arteries were adequately visualized. The bilateral internal carotid arteries had <50% hemodynamically insignificant stenosis (approximately 38% by 2-D measurement on the right, approximately 43% by 2-D measurement on the left) with heterogeneous plaque. The vertebral artery flow was antegrade and normal bilaterally. The subclavian arteries were patent bilaterally where visualized. Signature Velocities are measured in cm/s ; Diameters are measured in cm Carotid Right Measurements + +---+---+-----+ +------ + + !Location !PSV!EDV!Angle!%Stenosis 2D!%Stenosis Doppler !Tortuosity ! + +---+---+-----+ +------ + + !Prox CCA !90 !12 !60 ! ! ! ! + +---+---+-----+ +------ + + !Dist CCA !58 !15 !60 ! ! ! ! + +---+---+-----+ +------ + + !Prox ICA !115!28 !60 ! ! ! ! + +---+---+-----+ +------ + + !Dist ICA !114!26 !60 ! ! ! ! + +---+---+-----+ +------ + + !Prox ECA !242!26 !60 ! ! ! ! + +---+---+-----+ +------ + + !Vertebral !86 !16 !60 ! ! ! ! + +---+---+-----+ +------ + + !Prox Subclavian!86 ! !60 ! ! ! ! + +---+---+-----+ +------ + + - Additional Measurements:ICAPSV/CCAPSV 1.98.ICAEDV/CCAEDV 2.33. Carotid Left Measurements + +---+---+-----+ +------ + + !Location !PSV!EDV!Angle!%Stenosis 2D!%Stenosis Doppler !Tortuosity ! + +---+---+-----+ +------ + + !Prox CCA !133!23 !60 ! ! ! ! + +---+---+-----+ +------ + + !Dist CCA !138!22 !60 ! ! ! ! + +---+---+-----+ +------ + + !Prox ICA !109!28 !60 ! ! ! ! + +---+---+-----+ +------ + + !Dist ICA !112!29 !54 ! ! ! ! + +---+---+-----+ +------ + + !Prox ECA !95 !14 !60 ! ! ! ! + +---+---+-----+ +------ + + !Vertebral !95 !23 !60 ! ! ! ! + +---+---+-----+ +------ + + !Prox Subclavian!142! !60 ! ! ! ! + +---+---+-----+ +------ + + - Additional Measurements:ICAPSV/CCAPSV 0.81.ICAEDV/CCAEDV 1.26. Narrative Performed At PV LAB - Carotid Duplex Study [facility]CHO [facility] Demographics Patient Name KIARRA MEDEROS Date of Study 05/06/2020 Age 70 Visit Number [id number] Gender Male Accession Number [id number] Date of 1950 Referring [facility] Room Number 1142 Physician Dining Services Manager Ame Engle, Interpreting Bettina Haas T Physician Procedure Type of Study: Cerebral: Carotid, CAROTID DOPPLER, INGA ATERAL. Indications for Study:Pre-op CABG. Patient Status:STAT. Study Location:Vascular Lab. Technical Quality:Adequate visualization . Risk Factors History of Disease + +--- -+ + !Diagnosis !Date!Comments ! + +--- -+ + !History/Risk Factors: ! !CAD, PAD, DM ! + +--- -+ + Procedure Note Interface, External Ris In - 05/07/2020 8:23 AM PROFESSOR OF ENVIRONMENTAL STUDIES PV LAB - Carotid Duplex Study Demographics Patient Name KIARRA MEDEROS Jarret e of Study 05/06/2020 Age 70 Visit Number [id number] Gen gracia Male Accession Number [id number] Jarret e of 1950 Referring Clayton Manojlaly Mcwilliams m Number 1142 Physician Dining Services Manager Ame Engle Int erpreting Bettina Haas, T Ozzie eid MD Procedure Type of Study: Cerebral: Carotid, CAROTID DOPPLER, INGA ATERAL. Indications for Study:Pre-op CABG. Patient Status:STAT. Study Location:Vascular Lab. Technical Quality:Adequate visualization . Risk Factors History of Disease + ------+----+ + !Diagnosis !Date!Comments ! + ------+----+ + !History/Risk Factors: ! !CAD, PAD, DM ! + ------+----+ + Impressions Right Impression 1. There is <50% diameter reduction (blake roximately 38% by 2-D measurement) in the internal carotid artery with a pe ak velocity of 115 cm/sec and heterogeneous plaque. 2. There is non-occluding plaque in the external carotid artery. 3. There is non-occluding plaque in the common carotid artery. 4. The vertebral artery flow is antegrad e. 5. The subclavian artery is patent with a velocity of 86 cm/sec. Left Impression 1. There is <50% diameter reduction (blake roximately 43% by 2-D measurement) in the internal carotid artery with a pe ak velocity of 112 cm/sec and heterogeneous plaque. 2. There is non-occluding plaque in the external carotid artery. 3. There is non-occluding plaque in the common carotid artery. 4. The vertebral artery flow is antegrad e. 5. The subclavian artery is patent with a velocity of 142 cm/sec. Conclusions Summary Carotid duplex scanning and color flow imaging were performed bilaterally. The arteries were adequately visualized . The bilateral internal carotid arteries had <50% hemodynamically insig nificant stenosis (approximately 38% by 2-D measurement on the right, ap proximately 43% by 2-D measurement on the left) with heterogeneous plaque. The vertebral artery flow was antegrade and normal bilaterally. The s ubclavian arteries were patent bilaterally where visualized. Signature Velocities are measured in cm/s ; Diamet ers are measured in cm Carotid Right Measurements + +---+---+-----+--------- ---+ + + !Location !PSV!EDV!Angle!%Stenosis 2D!%Stenosis Doppler !Tortuosity ! + +---+---+-----+--------- ---+ + + !Prox CCA !90 !12 !60 ! ! ! ! + +---+---+-----+--------- ---+ + + !Dist CCA !58 !15 !60 ! ! ! ! + +---+---+-----+--------- ---+ + + !Prox ICA !115!28 !60 ! ! ! ! + +---+---+-----+--------- ---+ + + !Dist ICA !114!26 !60 ! ! ! ! + +---+---+-----+--------- ---+ + + !Prox ECA !242!26 !60 ! ! ! ! + +---+---+-----+--------- ---+ + + !Vertebral !86 !16 !60 ! ! ! ! + +---+---+-----+--------- ---+ + + !Prox Subclavian!86 ! !60 ! ! ! ! + +---+---+-----+--------- ---+ + + - Additional Measurements:ICAPSV/CCAPS V 1.98.ICAEDV/CCAEDV 2.33. Carotid Left Measurements + +---+---+-----+--------- ---+ + + !Location !PSV!EDV!Angle!%Stenosis 2D!%Stenosis Doppler !Tortuosity ! + +---+---+-----+--------- ---+ + + !Prox CCA !133!23 !60 ! ! ! ! + +---+---+-----+--------- ---+ + + !Dist CCA !138!22 !60 ! ! ! ! + +---+---+-----+--------- ---+ + + !Prox ICA !109!28 !60 ! ! ! ! + +---+---+-----+--------- ---+ + + !Dist ICA !112!29 !54 ! ! ! ! + +---+---+-----+--------- ---+ + + !Prox ECA !95 !14 !60 ! ! ! ! + +---+---+-----+--------- ---+ + + !Vertebral !95 !23 !60 ! ! ! ! + +---+---+-----+--------- ---+ + + !Prox Subclavian!142! !60 ! ! ! ! + +---+---+-----+--------- ---+ + + - Additional Measurements:ICAPSV/CCAPS V 0.81.ICAEDV/CCAEDV 1.26. Performing Organization Address City/State/Zipcode Phone Number [facility] NICOLE's Only(Ankle/Brachial Index) (05/06/2020 3:57 PM PROFESSOR OF ENVIRONMENTAL STUDIES) [facility] nature Ejection Fraction [facility] ECHO HEARTLAB [facility] Specimen Impressions Performed At Right Impression [facility] 1. The posterior tibial and dorsalis pedis arteries are patent with monophasic Doppler waveforms. 2. The PT pressure is >255 mmHg with an NICOLE of non compressible and the DP pressure is >255 mmHg with an NICOLE of non compressible. 3. The great toe pressure is 58 mmHg with an abnormal TBI of 0.43. 4. The digits have adequate flow by PPG waveforms. Left Impression 1. The posterior tibial and dorsalis pedis arteries are patent with monophasic Doppler waveforms. 2. The PT pressure is 111 mmHg with an NICOLE of 0.82, in the mild obstruction range and the DP pressure is 192 mmHg with an NICOLE of 1.41, in the calcified range. 3. The first, second and third toes are been amputated. 4. The remaining digits have adequate flow by PPG waveforms. Conclusions Summary Arterial pressures and Doppler waveforms were performed bilaterally. Adequate Doppler waveforms were obtained. Doppler waveforms were monophasic bilaterally. The right NICOLE's were non compressible. The left NICOLE's were in the mild(PT) and calcified(DP) ranges. The toe pressure and TBI's was abnormal on the right. The right digits had adequate flow by PPG waveforms. The left first, second and third digits have been amputated. The remaining left digits had adequate flow by PPG waveforms. Signature Velocities are measured in cm/s ; Diameters are measured in cm Narrative Performed At PV LAB - Lower Extremity Arterial Proced ure [facility] Demographics Patient Name KIARRA MEDEROS Date of Study 05/06/2020 Age 70 Visit Number [id number] Gender Male Accession Number [id number] Date of 1950 Referring [facility] Room Number 1142 Physician Joyce Dining Services Manager Mariola Guzman [facility] Interpreting Physician CAPRI Zuluaga Procedure Type of Study: Extremities Arteries: Lower Extremity Arterial Procedure, ARTERIAL (NICOLE'S W/DOPPLER) ONLY. Indications for Study:PVD and Claudicati on. Patient Status:Routine. Study Location:Vascular Lab. Technical Quality:Adequate visualization . Risk Factors History of Disease + +--- -+ + !Diagnosis !Date!Comments ! + +--- -+ + !History/Risk Factors: ! !CAD, PAD, DM ! + +--- -+ + Procedure Note Interface, External Ris In - 05/07/2020 8:24 AM PROFESSOR OF ENVIRONMENTAL STUDIES PV LAB - Lower Extremity Arterial Procedure Demographics Patient Name KIARRA MEDEROS of Study 05/06/2020 Ag e 70 Visit Number [id number] Ge nder Male Accession Number [id number] Da te of 1950 Referring Cira Cain om Number 1142 Physician Joyce Dining Services Manager Mariola MCDONALDT In terpreting Bettina Haas, Ph ysician Procedure Type of Study: Extremities Arteries: Lower Extremity A rterial Procedure, ARTERIAL (NICOLE'S W/DOPPLER) ONLY. Indications for Study:PVD and Claudicati on. Patient Status:Routine. Study Location:Vascular Lab. Technical Quality:Adequate visualization . Risk Factors History of Disease + ------+----+ + !Diagnosis !Date!Comments ! + ------+----+ + !History/Risk Factors: ! !CAD, PAD, DM ! + ------+----+ + Impressions Right Impression 1. The posterior tibial and dorsalis ped is arteries are patent with monophasic Doppler waveforms. 2. The PT pressure is >255 mmHg with an NICOLE of non compressible and the DP pressure is >255 mmHg with an NICOLE of non compressible. 3. The great toe pressure is 58 mmHg wit h an abnormal TBI of 0.43. 4. The digits have adequate flow by PPG waveforms. Left Impression 1. The posterior tibial and dorsalis ped is arteries are patent with monophasic Doppler waveforms. 2. The PT pressure is 111 mmHg with an A BI of 0.82, in the mild obstruction range and the DP pressure is 192 mmHg wi th an NICOLE of 1.41, in the calcified range. 3. The first, second and third toes are been amputated. 4. The remaining digits have adequate fl ow by PPG waveforms. Conclusions Summary Arterial pressures and Doppler waveform s were performed bilaterally. Adequate Doppler waveforms were obtaine d. Doppler waveforms were monophasic bilaterally. The right NICOLE's were non compressible. The left NICOLE's were in the mild(PT) and calcifie d(DP) ranges. The toe pressure and TBI's was abnormal on the right. The ri ght digits had adequate flow by PPG waveforms. The left first, second and t hird digits have been amputated. The remaining left digits had adequate flow by PPG waveforms. Signature Velocities are measured in cm/s ; Diamet ers are measured in cm Performing Organization Address City/State/Zipcode Phone Number [facility] 2D Echo W/Doppler(CW/PW/Color) (05/05/2020 1:16 PM PROFESSOR OF ENVIRONMENTAL STUDIES) Pathologist Sig nature Ejection Fraction [facility] ECHO HEARTLAB [facility] CPACS Specimen Narrative Performed At Transthoracic Echocardiography Report (T TE) [facility] ECHO HEARTLAB [facility] Demographics Patient Name KIARRA MEDEROS Date of Study 05/05/2020 Gender Male Visit Number [id number] Race Unknown Room Number 1142 Number Date of 1950 Referring Physician Sriram Denis MD Age 70 year(s) Dining Services Manager Bina hernandez [employer] Rachel Dixon Interpreting Eldon Cole MD [place] Physician Procedure Type of Study TTE procedure:2DECHO W DOPPLER(CW/PW/COLOR) (STAT) Indications:Unexplained Pre-syncope/Sync ope. Clinical History DM, HTN, HLD, PAD HGB 9.7 HCT 29.7 % Height: 71 inches Weight: 86.18 kg (190 lbs) BSA: 2.06 m^2 BMI: 26.5 kg/m^2 HR: 79 bpm BP: 164/72 mmHg Summary 1. The left ventricle is chamber size (by vol index) is small and underfilled. Mild concentric LV hypertrophy. All of the LV segments are hyperkinetic . LVEF by Soto's method of disk assessment is increased (>70%). Grade 1 diastolic dysfunction (impaired relaxation and low-normal LA pressure). LA size is normal (16-34 ml/m2) . 2. The right ventricular chamber size and systolic function are within normal limits. RA cavity size is normal. Unable to estimate peak systolic PA pressure; inadequate TR velocity sig nal. 3. No significant valvular abnormalitie s. Previous Study No prior exam available for comparison. Signature Findings Left Ventricle The left ventricle is chamber size (by vol index) is s mall. Mild concentric LV hypertrophy. All of the LV segments are hyperkinetic . Global LV systolic function hyperdynamic . LVEF by Soto's method of disk assessment is increased (>70%) . The LVEF was measured using Soto's bi-plane method of disk . Grade 1 diastolic dysfunction (impaired relaxati on and low-normal LA pressure). Left Atrium LA size is normal (16-34 ml/m2) . Right Ventricle The right ventricular chamber size and systolic function are within normal limits. Right Atrium RA cavity size is normal . Aortic Valve Mild AoV cusp calcification. Mitral Valve Mild mitral annular calcification. Mild MV leaflet thickening. Tricuspid Valve TV structure is normal. Unable to estimate peak systolic PA pressure; inadequate TR velocity signal. Pulmonic Valve Normal PV structure and function. Aorta Aortic root size (SInus of Valsalva diameter) is norm al . Pericardium No significant pericardial effusion is visualized. An echo lucent space is noted consistent with prominent pericardial fat pad. IVC/SVC/PA/PV/Pleural The estimated RA pressure by IVC dynamics indeterminate . The inferior vena cava is not visualized. Chambers/Structures Left Atrium LA Volume: 46.41 ml LA Area: 17.58 cm^2 LA Vol. Index: 23 ml/m^2 Left Ventricle LVIDd: 4.18 cm LV Septum Diastolic: 1.34 cm LV PW Diastolic: 1.2 cm LVEDV Soto's:49.55 ml LVESV Soto's:14.39 ml LVEF Soto's: 71 % LVEDVI: 24 ml/m^2 LVESVI: 7 ml/m^2 LVOT Diameter: 2.41 cm Right Ventricle TAPSE: 2. 1 cm Aorta Ao Root S of Bailey.: 3.35 cm Doppler/Quantitative Measurements Mitral Valve MV Peak E-Wave: 0.51 m/s MV Peak A-Wave: 0.81 m/s E/A Ratio: 0.63 Peak Gradient: 1.03 mmHg Deceleration Time: 396.7 msec MV Cristian. Peak: Tissue Doppler E' Septal Velocity: 0.05 m/s E/E': 9.32 E' Lateral Velocity: 0.08 m/s Aortic Valve Peak Velocity: 1.49 m/s Mean Velocity: 1.11 m/s Peak Gradient: 8.87 mmHg Mean Gradient: 5.26 mmHg AV Area (continuity): 2.72 cm^2 Area (2D): 2.78 cm^2 AV VTI: 26.32 cm AV DVI: 0.6 LVOT Peak Velocity: 1.19 m/s Peak Gradient: 5.68 mmHg Mean Velocity: 0.78 m/s Mean Gradient: 2.71 mmHg LVOT Diameter: 2.41 cm LVOT VTI: 15.73 cm LVOT Area: 4.56 cm^2 LVOT SV:71.72 ml LVOT CO: 5.67 l/min LVOT CI: 2.75 l/min/m^2 Procedure Note Interface, External Ris In - 05/05/2020 11:00 PM PROFESSOR OF ENVIRONMENTAL STUDIES Transthoracic Echocardiography Report (TTE) Demographics Patient Name KIARRA MEDEROS Date of Study 05/05/2020 Gender Male Visit Number [id number] Race Unknown Room Num [place] [id number] Number Date of 1950 Referrin g Physician Sriram Denis MD Age 70 year(s) Sonograp her Bina Maggie Irish [employer] Bleacher Rachel N. Chau Cole MD [facility] n Procedure Type of Study TTE procedure:2DECHO W DOPPLE R(CW/PW/COLOR) (STAT) Indications:Unexplained Pre-syncope/Sync ope. Clinical History DM, HTN, HLD, PAD HGB 9.7 HCT 29.7 % Height: 71 inches Weight: 86.18 kg (190 lbs) BSA: 2.06 m^2 BMI: 26.5 kg/m^2 HR: 79 bpm BP: 164/72 mmHg Summary 1. The left ventricle is chamber size ( by vol index) is small and underfilled. Mild concentric LV hypertr ophy. All of the LV segments are hyperkinetic . LVEF by Soto's method of disk assessment is increased (>70%). Grade 1 diastolic dysfunction ( impaired relaxation and low-normal LA pressure). LA size is normal (16-34 ml/m2) . 2. The right ventricular chamber size a nd systolic function are within normal limits. RA cavity size is normal . Unable to estimate peak systolic PA pressure; inadequate TR velocity sig nal. 3. No significant valvular abnormalitie s. Previous Study No prior exam available for comparison. Signature Findings Left Ventricle The left ventric le is chamber size (by vol index) is small. Mild concentric LV hypertrophy. All of the LV se gments are hyperkinetic . Global LV systol ic function hyperdynamic . LVEF by Soto' s method of disk assessment is increased (>70%) . The LVEF was maranda sured using Soto's bi-plane method of disk . Grade 1 diastoli c dysfunction (impaired relaxation and low-normal L A pressure). Left Atrium LA size is dante l (16-34 ml/m2) . Right Ventricle The right ventri cular chamber size and systolic function are wit hin normal limits. Right Atrium RA cavity size i s normal . Aortic Valve Mild AoV cusp ca lcification. Mitral Valve Mild mitral nohemi lar calcification. Mild MV leaflet thickening. Tricuspid Valve TV structure is normal. Unable to estima te peak systolic PA pressure; inadequate TR ve locity signal. Pulmonic Valve Normal PV struct ure and function. Aorta Aortic root size (SInus of Valsalva diameter) is normal . Pericardium No significant p ericardial effusion is visualized. An echo lucent s pace is noted consistent with prominent perica rdial fat pad. IVC/SVC/PA/PV/Pleural The estimated RA pressure by IVC dynamics indeterminate . The inferior blaze a cava is not visualized. Chambers/Structures Left Atrium LA Volume: 46.41 ml LA Area: 17.58 cm^2 LA Vol. Index: 23 ml/m^2 Left Ventricle LVIDd: 4.18 cm LV Septum Diastolic: 1.34 cm LV PW Diastolic: 1.2 cm LVEDV Soto's:49.55 ml LVESV Soto's:14.39 ml LVEF Soto's: 71 % LVEDVI: 24 ml/m^2 LVESVI: 7 ml/m^2 LVOT Diameter: 2.41 cm Right Ventricle TAPSE: 2.1 cm Aorta Ao Root S of Bailey.: 3.35 cm Doppler/Quantitative Measurements Mitral Valve MV Peak E-Wave: 0.51 m/s M V Peak A-Wave: 0.81 m/s E /A Ratio: 0.63 P eak Gradient: 1.03 mmHg D eceleration Time: 396.7 msec MV Cristian. Peak: Tissue Doppler E' Septal Velocity: 0.05 m/s E /E': 9.32 E' Lateral Velocity: 0.08 m/s Aortic Valve Peak Velocity: 1.49 m/s Mean Velocity: 1.11 m/s Peak Gradient: 8.87 mmHg Mean Gradient: 5.26 mmHg AV Area (continuity): 2.72 cm^2 Area (2D): 2.78 cm^2 AV VTI: 26.32 cm AV DVI: 0.6 LVOT Peak Velocity: 1.19 m/s Pea k Gradient: 5.68 mmHg Mean Velocity: 0.78 m/s Maranda n Gradient: 2.71 mmHg LVOT Diameter: 2.41 cm LVO T VTI: 15.73 cm LVOT Area: 4.56 cm^2 LVO T SV:71.72 ml LVOT CO: 5.67 l/min LVO T CI: 2.75 l/min/m^2 Performing Organization Address [facility] after 05/18[facility]2019 Insurance Payer Benefit Plan / Subscriber ID Effective Dates Phone Addre ss Type Group MEDICARE MEDICARE A B [id number] 2014-Presen Medicare t [employer] - MGD CARE [employer] INDEMNITY [id number] 2020-Present Comm NON CONTR Advance Directives For more information, please contact: [phone] Code Status Date Activated Date Inactivated Comments Full Code 05/05/2020 12:07 AM This code status was determined by: Patient
--- OUTSIDE RECORDS SUMMARY | 2020-05-18 17:12 | XMS REPORT | Continuity of Care Document ---
:1950 Author Organization [facility] t Address [address] [place] [address] Care Team Providers Name Role Phone Zoya Quick MD Attending Clinician Merchant FAROOQ Attending Clinician Gómez Sharma MD Attending Clinician Jimmy Espinosa MD Attending Clinician Brooklyn Hinkle MD Attending Clinician Eugene Reeves MD Attending Clinician Kong Mendiola MD Attending Clinician ZOYA QUICK Attending Clinician Unavailable BROOKLYN HINKLE Admitting Clinician Unavailable Payers Payer Name Policy Type Policy Effective Date Expiration Date Sour ce Number MEDICAREMEDICARE A [id number] DYAN Noel [id number] 2013- 00:00:00 - Medical PresentMedicare Center AETNA - MGD CAREAETNA [id number] DYAN Verdin INDEMNITY NON 00:00:00 - Medical [id number] 2019-Pr Ce nter esentComm Problems Condition Condition Condition Status Onset Resolution Last Treating Co mments Source Name Details Category Date Date Treatment Clinician Date s/p ACB x4 s/p ACB x4 Disease Active 2019-[address] by by 07-09 Sadie - Dr.Livesay Ramos 00:00: Me dical 05/09/20 05/09/20 00 Center PAD PAD Disease Active 2019-[address] [facility] (periphera (periphera 12 Sahra kes - l artery l artery 00:00: Medica l disease) disease) 00 Center Uncontroll Uncontroll Disease Active 2019-[address] 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 [facility] - diabetes diabetes 00:00: Medica l mellitus mellitus 00 Center with with hyperglyce hyperglyce helena malik Coronary Coronary Disease Active 2019[facility] artery 11 [facility] - disease disease 00:00: Medical 00 Center Acute Acute Disease Active [facility] respirator respirator Sahra kes - y y Medical insufficie insufficie Ce nter ncy ncy Acute Acute Disease Active [facility] post-opera post-opera Sahra kes - tive pain tive pain [facility] Hypothyroi Hypothyroi Disease Active [facility] dism, dism, [facility] - unspecifie unspecifie Me dical d type d type Center Allergies, Adverse Reactions, Alerts Allergy Allergy Status Severity Reaction(s) Onset Inactive Treating Comm ents Source Name Type Date Date Clinician Acyclovi Propensi Active 2019-[address] r ty to 1-10 [facility] - Analogue adverse 00:00: Medical s reaction 00 Center s Meperidi Propensi Active 2019-[address] ne ty to 1-10 [facility] - adverse 00:00: Medical reaction 00 [facility] Vancomyc Propensi Active 2019-[address] in ty to 1-10 [facility] - Analogue adverse 00:00: Medical s reaction 00 [facility] Social History Social Habit Start Date Stop Date Quantity Comments Source Sex Assigned At [facility] Exposure to SARS-CoV-2 Not sure [facility] I [facility] (event) Center Medications Ordered Filled Start Stop Current Ordering Indication Dosage Frequency Signature Comments Components Source Medication Medication Date Date Medication? Clinician (SIG) Name Name gabapentin 2019-06 Yes 300mg [id number] Take [address] [address] (NEURONTIN) 1-24 [id number] mg by L ukes - 300 MG 15:43: 3D mouth 3 Medical capsule 43 (three) Center times daily. liothyronin 2019-06 Yes 5ug QD Take [address] [address] e (CYTOMEL) 1-24 by mouth Luke s - 5 MCG 15:43: daily. Medical tablet 43 [facility] midodrine 2019-06 Yes 10mg [id number] Take [address] [address] (PROAMATINE 24 [id number] by mouth 3 [facility] - ) 10 MG 15:43: 3D (three) Medical tablet 43 times Center daily. levothyroxi 2019-06 Yes 50ug Take [address] [facility] ne 1-24 mcg by [facility] - (SYNTHROID, 15:43: mouth Medic al LEVOTHROID) 43 Every Center 50 MCG morning on tablet an empty stomach. clopidogreL 2019-06- No 75mg QD Take [address] [address] (PLAVIX) 75 07-1824 by mouth Ana es - mg tablet 11:44: 00:00 daily. Medic al 58 :00 Center insulin 2019-06 Yes 15U QD Inject 15 [facility] glargine -24 Units [facility] - (LANTUS) 00:00: subcutaneo Med ical 100 unit/mL 00 usly Center (3 mL) InPn nightly. atorvastati 2019-06- Yes 80mg QD Take [address] n (LIPITOR) 07-18 tablet (80 L ukes - 80 MG 00:00: 23:59 mg total) Medica l tablet 00 :00 by mouth Center nightly. fludrocorti 2019-06- Yes .1mg QD Take [address] sone 07-18 tablet [facility] - (FLORINEF) 00:00: 23:59 (0.1 mg Med ical 0.1 mg 00 :00 total) by Center tablet mouth daily. insulin 2019-06- Yes 6U Inject 6 [facility] t lispro 07-18 Units [facility] - (HumaLOG) 00:00: 23:59 subcutaneo M edical 100 unit/mL 00 :00 usly 3 Center injection (three) times daily before meals. HYDROcodone 2019-06- Yes 2{tbl} Take [address] -acetaminop 07-18 12-04 tablets by L katy - hen (NORCO 00:00: 23:59 mouth Medic al 5-325) 00 :00 every 4 Center 5-325 mg (four) per tablet hours as needed for up to 10 days. Max Daily Amount: 12 tablets ondansetron 2019-06- Yes 4mg Take [address] [facility] (ZOFRAN-ODT 07-18 tablet (4 Sahra kes - ) 4 MG 00:00: 23:59 mg total) Medic al disintegrat 00 :00 by mouth Cent er ing tablet every 6 (six) hours as needed for up to 7 days. polyethylen 2019-06- 17g Q.5D Take [address] [facility] St e glycol 07-18 by mouth 2 [facility] - (GLYCOLAX) 00:00: 23:59 (two) Medic al 17 gram 00 :00 times Center packet daily for 3 days. Vital Signs Vital Name Observation Time Observation Value Comments Source Systolic blood 2020-05-18 14:37:00 138 mm[Hg] [facility] Diastolic blood 2020-05-18 14:37:00 67 mm[Hg] [facility] Heart rate 2020-05-18 14:37:00 86 /min [facility] Body temperature 2020-05-18 14:37:00 36.22 Sneha [facility] Respiratory rate 2020-05-18 14:37:00 18 /min [facility] Oxygen saturation in 2020-05-18 14:37:00 95 /min [facility] Arterial blood by Medical Ce nter Pulse oximetry Body weight 2020-05-16 06:39:00 72.349 kg [facility] BMI 2020-05-16 06:39:00 22.25 kg/m2 [facility] Body height 2020-05-04 23:43:00 180.3 cm [facility] Procedures Procedure Date / Time Performed Performing Clinician Miguel muller POCT-GLUCOSE METER 2020-05-18 11:38:00 Jericho Espinosa [facility] POCT-GLUCOSE METER 2020-05-18 07:18:00 [facility] POCT-GLUCOSE METER 2020-05-18 04:41:00 Jericho Espinosa [facility] POCT-GLUCOSE METER 2020-05-17 20:43:00 Jericho Espinosa [facility] POCT-GLUCOSE METER 2020-05-17 16:34:00 Jericho Espinosa [facility] POCT-GLUCOSE METER 2020-05-17 11:21:00 Jericho Espinosa [facility] POCT-GLUCOSE METER 2020-05-17 07:54:00 Jericho Espinosa [facility] BASIC METABOLIC PANEL (7) 2020-05-17 04:56:00 Jericho Espinosa [facility] CBC (HEMOGRAM ONLY) 2020-05-17 04:56:00 Jericho Espinosa [facility] MAGNESIUM 2020-05-17 04:56:00 Jericho Espinosa [facility] POCT-GLUCOSE METER 2020-05-16 18:06:00 Jericho Espinosa [facility] POCT-GLUCOSE METER 2020-05-16 17:17:00 Jericho Espinosa [facility] POCT-GLUCOSE METER 2020-05-16 11:57:00 Jesús Jericholubna Marquez [facility] POCT-GLUCOSE METER 2020-05-16 07:55:00 Jericho Espinosa [facility] BASIC METABOLIC PANEL (7) 2020-05-16 06:16:00 Jesús Jericholubna carnes [facility] CBC (HEMOGRAM ONLY) 2020-05-16 06:16:00 Jericho Espinosa [facility] MAGNESIUM 2020-05-16 06:16:00 Jericho Espinosa [facility] POCT-GLUCOSE METER 2020-05-15 21:13:00 Jericho Espinosa [facility] POCT-GLUCOSE METER 2020-05-15 16:59:00 Jericho Espinosa [facility] BASIC METABOLIC PANEL (7) 2020-05-15 11:00:00 Jesús Jericholubna carnes [facility] CBC (HEMOGRAM ONLY) 2020-05-15 11:00:00 Jericho Espinosa [facility] MAGNESIUM 2020-05-15 11:00:00 Jericho Espinosa [facility] POCT-GLUCOSE METER 2020-05-15 07:28:00 Jesús Jericholubna Marquez [facility] POCT-GLUCOSE METER 2020-05-14 21:56:00 [facility] POCT-GLUCOSE METER 2020-05-14 15:49:00 [facility] XR CHEST 1 VIEW 2020-05-14 14:49:00 [facility]/BEDSIDE [facility] CBC (HEMOGRAM ONLY) 2020-05-14 13:13:00 [facility] POCT-GLUCOSE METER 2020-05-14 12:38:00 [facility] BASIC METABOLIC PANEL (7) 2020-05-14 11:13:[address] [facility] ECG 12-LEAD 2020-05-14 10:34:15 Unknown, Hl7 Doctor [facility] POCT-GLUCOSE METER 2020-05-14 07:48:00 [facility] POCT-GLUCOSE METER 2020-05-13 20:02:00 [facility] POCT-GLUCOSE METER 2020-05-13 16:58:00 [facility] SARS-COV2/RT-PCR ([facility] & 2020-05-13 16:46:00 Josh Ellison [facility] REF LABS) [facility] XR CHEST 1 VIEW 2020-05-13 13:18:00 [facility] Jericholubna Marquez [facility] POCT-GLUCOSE METER 2020-05-13 12:33:00 [facility] POCT-GLUCOSE METER 2020-05-13 07:42:00 [facility] POCT-GLUCOSE METER 2020-05-12 20:52:00 [facility] URINE CULTURE 2020-05-12 17:07:00 [facility] SODIUM, RANDOM URINE 2020-05-12 17:07:00 [facility] CREATININE, RANDOM URINE 2020-05-12 17:07:00 [facility] Jericholubna riggins [facility] URINALYSIS W/ REFLEX 2020-05-12 17:07:00 [facility] I [facility] URINE CULTURE [facility] OSMOLALITY, URINE 2020-05-12 17:07:00 [facility] POCT-GLUCOSE METER 2020-05-12 17:02:00 [facility] Jericho [facility] POCT-GLUCOSE METER 2020-05-12 12:25:00 [facility] Jericholubna Marquez [facility] CBC (HEMOGRAM ONLY) 2020-05-12 09:15:00 [facility] Jericho [facility] COMPREHENSIVE METABOLIC 2020-05-12 09:15:00 [facility] CORTISOL 2020-05-12 09:14:00 Jayce Carranza [facility] POCT-GLUCOSE METER 2020-05-12 07:19:00 [facility] CALCIUM, IONIZED 2020-05-12 04:41:00 Celeste Cornelius [facility] XR CHEST 1 VIEW 2020-05-12 04:33:[address] [facility] St L es PORTABLE/BEDSIDE [facility] POCT-GLUCOSE METER 2020-05-11 21:18:00 [facility] POCT-GLUCOSE METER 2020-05-11 17:41:00 [facility] SARS-COV2/RT-PCR ([facility] & 2020-05-11 16:14:00 Agueda Mae [facility] - REF LABS) [facility] POCT-GLUCOSE METER 2020-05-11 11:30:00 [facility] XR CHEST 1 VIEW 2020-05-11 09:00:[address] [facility] St L ukes - PORTABLE/BEDSIDE [facility] POCT-GLUCOSE METER 2020-05-11 08:45:00 [facility] BASIC METABOLIC PANEL (7) 2020-05-11 04:44:00 Josh Ellison [facility] MAGNESIUM 2020-05-11 04:44:00 Terra, [facility] PHOSPHORUS 2020-05-11 04:44:00 [facility] CBC (HEMOGRAM ONLY) 2020-05-11 04:44:00 [facility] CALCI[facility], IONIZED 2020-05-11 04:44:00 Celeste Cornelius [facility] PREPARE PLASMA 2020-05-10 23:54:00 Edith [facility] PREPARE RBC 2020-05-10 23:54:00 Edith [facility] POCT-GLUCOSE METER 2020-05-10 21:22:00 Edith [facility] POCT-GLUCOSE METER 2020-05-10 16:24:00 Edith [facility] CALCIUM, IONIZED 2020-05-10 14:39:00 Celeste Cornelius [facility] POCT-GLUCOSE METER 2020-05-10 11:19:00 Edith [facility] PROTHROMBIN TIME/INR 2020-05-10 08:06:00 Julio Mcintyre [facility] APTT 2020-05-10 08:06:00 Julio Mcintyre [facility] FIBRINOGEN 2020-05-10 08:06:00 Julio Mcintyre [facility] PLATELET COUNT 2020-05-10 08:06:00 Julio Mcintyre [facility] POCT-GLUCOSE METER 2020-05-10 08:05:00 Edith [facility] BASIC METABOLIC PANEL (7) 2020-05-10 03:45:00 Clayton Reeder CH, I [facility] MAGNESIUM 2020-05-10 03:45:00 Terra [facility] PHOSPHORUS 2020-05-10 03:45:00 [facility] CALCIUM, IONIZED 2020-05-10 03:45:00 [place] BLOOD [facility], ARTERIAL 2020-05-10 03:45:00 Adryan Usen [facility] I [facility] TYPE AND SCREEN, 2020-05-10 03:45:00 [facility] AUTOMATED [facility] CBC W/PLT COUNT & AUTO 2020-05-10 03:45:00 [facility] DIFFERENTIAL [facility] XR CHEST 1 VIEW 2020-05-10 01:12:00 [facility] BLOOD GAS, ARTERIAL 2020-05-09 21:12:00 Celeste Cornelius [facility] SODIUM NA-STAT LAB 2020-05-09 21:12:00 [facility] POTASSIUM-STAT LAB 2020-05-09 21:12:00 Adryan Usen [facility] GLUCOSE-STAT LAB 2020-05-09 21:12:00 Adryan Usen [facility] HGB/HCT (H&H) - STAT LAB 2020-05-09 21:12:00 Adryan Usenavinn [facility] BASIC METABOLIC PANEL (7) 2020-05-09 21:12:00 Celeste Cornelius Ther ganesh [facility] MAGNESIUM 2020-05-09 21:12:00 Adryan Usenavinn [facility] PHOSPHORUS 2020-05-09 21:12:00 Adryan Usenavinn [facility] CALCIUM, IONIZED 2020-05-09 21:12:00 [place] POCT-GLUCOSE METER 2020-05-09 20:04:00 [facility] BLOOD GAS, ARTERIAL 2020-05-09 19:01:00 Janet Lamar [facility] POCT-GLUCOSE METER 2020-05-09 18:47:00 Clayton Reeder [facility] POCT-GLUCOSE METER 2020-05-09 16:25:00 Clayton Reeder [facility] XR CHEST 1 VIEW 2020-05-09 15:46:00 Chilango Angel [facility] PORTABLE/BEDSIDE Medical [facility] CBC W/PLT COUNT & AUTO 2020-05-09 15:32:00 Chilango Angel [facility] BASIC METABOLIC PANEL (7) 2020-05-09 15:30:00 Faheem Morales [facility] BLOOD GAS, ARTERIAL 2020-05-09 15:30:00 Faheem Morales [facility] MAGNESIUM 2020-05-09 15:30:00 Chilango Angel [facility] PHOSPHORUS 2020-05-09 15:30:00 Chilango Angel [facility] APTT 2020-05-09 15:30:00 Chilango Angelbrooklynprincess [facility] PROTHROMBIN TIME/INR 2020-05-09 15:30:00 Chilango Angel [facility] OXYGEN SATURATION, 2020-05-09 15:30:00 Chilango Angel [facility] LACTIC ACID, ARTERIAL 2020-05-09 15:30:00 Chilango Angel [facility] CALCIUM, IONIZED 2020-05-09 15:29:00 Chilango Angel [facility] TRANSFUSE PLASMA 2020-05-09 13:53:44 Damon Reeves [facility] TRANSFUSE LEUKO-REDUCED 2020-05-09 13:53:28 Damon Reeves [facility] RED BLOOD CELLS [facility] POCT-ACT 2020-05-09 13:41:00 Clayton Reeder [facility] PT/APTT 2020-05-09 13:34:52 Damon Reeves [facility] FIBRINOGEN 2020-05-09 13:34:52 Damon Reeves [facility] PLATELET COUNT 2020-05-09 13:34:52 Damon Reeves [facility] BLOOD GAS, ARTERIAL 2020-05-09 13:34:52 Damon Reeves [facility] SODIUM NA-STAT LAB 2020-05-09 13:34:52 Damon Reeves [facility] POTASSIUM-STAT LAB 2020-05-09 13:34:52 Damon Reeves [facility] GLUCOSE-STAT LAB 2020-05-09 13:34:52 Damon Reeves [facility] HGB/HCT (H&H) - STAT LAB 2020-05-09 13:34:52 Damon Reeves Perfec to [facility] CBC W/PLT COUNT & AUTO 2020-05-09 13:34:00 Faheem Morales [facility] TRANSFUSE PLASMA 2020-05-09 13:19:27 JerzyDamon francisco [facility] POCT-ACT 2020-05-09 13:16:00 Clayton Reeder [facility] BLOOD GAS, ARTERIAL 2020-05-09 13:13:55 Edith [facility] SODIUM NA-STAT LAB 2020-05-09 13:13:55 Edith [facility] POTASSIUM-STAT LAB 2020-05-09 13:13:55 Edith [facility] GLUCOSE-STAT LAB 2020-05-09 13:13:55 Edith [facility] HGB/HCT (H&H) - STAT LAB 2020-05-09 13:13:55 Edith [facility] POCT-ACT 2020-05-09 12:50:[address] [facility] BLOOD GAS, ARTERIAL 2020-05-09 12:45:36 Edith [facility] SODIUM NA-STAT LAB 2020-05-09 12:45:36 Edith [facility] POTASSIUM-STAT LAB 2020-05-09 12:45:36 Edith [facility] GLUCOSE-STAT LAB 2020-05-09 12:45:36 Edith [facility] HGB/HCT (H&H) - STAT LAB 2020-05-09 12:45:36 Edith [facility] TRANSFUSE LEUKO-REDUCED 2020-05-09 12:29:32 Damon Reeves [facility] POCT-ACT 2020-05-09 12:11:00 Merchant Clayton [facility] BLOOD GAS, VENOUS 2020-05-09 12:07:08 Edith [facility] BLOOD GAS, ARTERIAL 2020-05-09 12:07:02 Edith [facility] SODIUM NA-STAT LAB 2020-05-09 12:07:02 Edith [facility] POTASSIUM-STAT LAB 2020-05-09 12:07:02 Edith [facility] GLUCOSE-STAT LAB 2020-05-09 12:07:02 Edith [facility] HGB/HCT (H&H) - STAT LAB 2020-05-09 12:07:02 Edith [facility] TRANSFUSE LEUKO-REDUCED 2020-05-09 12:03:12 Damon Reeves [facility] POCT-ACT 2020-05-09 11:35:00 Manojt, Clayton [facility] BLOOD GAS, ARTERIAL 2020-05-09 10:40:19 Damon Reeves [facility] SODIUM NA-STAT LAB 2020-05-09 10:40:19 Damon Reeves [facility] POTASSIUM-STAT LAB 2020-05-09 10:40:19 Damon Reeves [facility] GLUCOSE-STAT LAB 2020-05-09 10:40:19 Damon Reeves [facility] HGB/HCT (H&H) - STAT LAB 2020-05-09 10:40:19 Damon Reeves Perfec to [facility] TRANSFUSE LEUKO-REDUCED 2020-05-09 10:36:34 Damon Reeves Perfect o [facility] RED BLOOD CELLS [facility] BYPASS,AORTO CORONARY 2020-05-09 09:04:00 EdithMy carnes [facility] SELMA/SVG [facility] ENDOSCOPIC HARVEST,VEIN 2020-05-09 09:04:00 EdithMy [facility] SAMSON 2020-05-09 09:04:00 Edith [facility] PLATELET AGGREGATION: 2020-05-09 08:22:00 Blane Gallardoseng [facility] FUNCTION SCREEN [facility] BASIC METABOLIC PANEL (7) 2020-05-09 08:22:00 [facility] MAGNESIUM 2020-05-09 08:22:00 Faheem Morales [facility] PHOSPHORUS 2020-05-09 08:22:00 Evelyne Moralesaham [facility] CBC W/PLT COUNT & AUTO 2020-05-09 08:22:00 [facility] S [facility] POCT-GLUCOSE METER 2020-05-09 07:20:00 [facility] POCT-GLUCOSE METER 2020-05-08 21:15:00 [facility] POCT-GLUCOSE METER 2020-05-08 15:54:00 [facility] POCT-GLUCOSE METER 2020-05-08 12:12:00 [facility] PLATELET AGGREGATION: 2020-05-08 11:40:00 Mariana Gallardo [facility] FUNCTION SCREEN [facility] BASIC METABOLIC PANEL (7) 2020-05-08 11:40:00 [facility] CBC W/PLT COUNT & AUTO 2020-05-08 11:40:00 [facility] POCT-GLUCOSE METER 2020-05-08 08:11:00 [facility] POCT-GLUCOSE METER 2020-05-07 21:01:00 [facility] HEMOGLOBIN A1C 2020-05-07 18:17:00 Darshana [facility] POCT-GLUCOSE METER 2020-05-07 17:15:00 [facility] ECG 12-LEAD 2020-05-07 17:02:29 Unknown, Hl7 Doctor [facility] PROTHROMBIN TIME/INR 2020-05-07 16:16:00 Darshana, [facility] APTT 2020-05-07 16:16:00 Darshana, [facility] POCT-GLUCOSE METER 2020-05-07 12:38:00 [facility] BASIC METABOLIC PANEL (7) 2020-05-07 06:36:00 Raul Magaña [facility] MAGNESIUM 2020-05-07 06:36:00 Raul Magaña [facility] LIPID PANEL 2020-05-07 06:36:00 Darshana [facility] CBC W/PLT COUNT & AUTO 2020-05-07 06:36:00 [facility] PLATELET AGGREGATION: 2020-05-07 06:35:00 Mariana Gallardo [facility] FUNCTION [facility] C. DIFFICILE GDH TOXIN 2020-05-06 21:48:00 [facility] POCT-GLUCOSE METER 2020-05-06 21:03:00 [facility] SARS-COV2/RT-PCR ([facility] & 2020-05-06 20:41:00 Josh Ellison [facility] - REF LABS) Medical [facility] ABORH, MANUAL 2020-05-06 20:41:00 Nadege Biswas [facility] POCT-GLUCOSE METER 2020-05-06 18:13:00 [facility] XR CHEST 2 VIEWS 2020-05-06 17:14:00 My Sharma [facility] HC ARTERIAL DOPPLER LEGS 2020-05-06 17:00:00 Sriram Denis [facility] I [facility] - INGA [facility] HC CAROTID DOPPLER INGA 2020-05-06 17:00:00 Jaswant Baconmaria r Arnold [facility] HC VENOUS DOPPLER EXT INGA 2020-05-06 17:00:00 Jaswant Baconmaria r stover [facility] HC ARTERIAL(NICOLE W 2020-05-06 15:57:00 Sriram Denis [facility] - DOPPLER)ONLY [facility] HEMOGLOBIN A1C 2020-05-06 13:01:00 Edith [facility] TYPE AND SCREEN, 2020-05-06 13:01:[address] [facility] POCT-GLUCOSE METER 2020-05-06 11:40:00 Merchant [facility] POCT-GLUCOSE METER 2020-05-06 08:47:00 [facility] BASIC METABOLIC PANEL (7) 2020-05-06 06:05:00 Raul Magaña [facility] MAGNESIUM 2020-05-06 06:05:00 Raul Magaña [facility] CBC W/PLT COUNT & AUTO 2020-05-06 06:05:00 [facility] Clayton [facility] POCT-GLUCOSE METER 2020-05-05 20:59:00 [facility] PLATELET AGGREGATION: 2020-05-05 20:42:00 Sriram Denis [facility] - FUNCTION SCREEN [facility] ECG 12-LEAD 2020-05-05 18:39:47 Unknown, Hl7 Doctor [facility] POCT-GLUCOSE METER 2020-05-05 16:54:00 Merchant [facility] 2D ECHO W/ DOPPLER 2020-05-05 13:16:31 Raul Magaña [facility] (CW/PW/COLOR) [facility] POCT-GLUCOSE METER 2020-05-05 11:57:00 Clayton Reeder [facility] 2D ECHO W/ DOPPLER 2020-05-05 11:33:[address] [facility] - (CW/PW/COLOR) [facility] BASIC METABOLIC PANEL (7) 2020-05-05 05:20:00 Raul Magaña [facility] MAGNESIUM 2020-05-05 05:20:00 Gómez, Raul Dent [facility] LIPID PANEL 2020-05-05 05:20:00 Magaña, Raul Dent [facility] HEMOGLOBIN A1C 2020-05-05 05:20:00 Gómez, Raul Dent [facility] PROTHROMBIN TIME/INR 2020-05-05 05:20:00 Gómez, Raul [place] [facility] W/PLT COUNT & AUTO 2020-05-05 05:20:00 Raul Magaña [facility] DIFFERENTIAL [facility] Plan of Care Planned Activity Planned Date Details Comments Source Future Scheduled 2020-08-[address] [facility] - Test 00:00:00 measurement Medical Center (procedure) [code = 88782928] Future Scheduled 2020-02-24 INFLUENZA VACCINE (#1) [facility] 00:[facility]:00 [code = INFLUENZA Medical Ce nter VACCINE (#1)] Future Scheduled 2015-03-[address] [facility] - Test 00:00:00 WELLNESS (YEAR 2 or Medical Center FIRST YEAR if no IPPE) [code = MEDICARE ANNUAL WELLNESS (YEAR 2 or FIRST YEAR if no IPPE)] Future Scheduled 2014 PNEUMOCOCCAL 65+ YRS [facility] - Test 00:00:00 (1 of 1 - Medical Center HUTD74_Btuvedz PCV13) [code = PNEUMOCOCCAL 65+ YRS (1 of 1 - [id number] PCV13)] Future Scheduled [address] DIABETIC EYE EXAM [facility] - Test 00:00:00 [code = DIABETIC EYE Medical Center EXAM] Future Scheduled [address] - Test 00:00:00 examination Medical Center (regime/therapy) [code = 222243580] Future Scheduled 1959 Urine screening for [facility] - Test 00:00:00 protein (procedure) Medical Center [code = 701562640] Future Scheduled [address] [facility] - Test 00:00:00 [facility] colon (procedure) [code = 997722781] Medication 2020-05-19 aspirin [address] [facility] - 00:00:00 tablet [code = 365235] [facility] Results Test Description Test Time Test Comments Results Result Comments Source POC-Glucose meter 2020-05-18 11:50:00 Test Item Value Reference Range Interpretation Comme nts POC-Glucose Meter (test code = 236 mg/dL 70-110 H : TESTED AT [facility] [address], [facility] 30: Pest Control Service Sales Agent/Techni josephine ID = [id number] for Huan GONZALEZ Lab Interpretation (test code = Abnormal 09057-1) [facility] [id number] 11:50:00 Test Item Value Reference Range Interpretation Comments POC-GLUCOSE METER 236 mg/dL 70-110 H : TESTED A T [facility] [address] (BEAKER) (test code = [place], [facility]8) [address]: Pest Control Service Sales Agent/Techni josephine ID = [id number] for Raul DAVILA POCT-GLUCOSE [id number] 08:12:00 Test Item Value Reference Range Interpretation Comments POC-GLUCOSE METER 82 mg/dL 70-110 : TESTED A T [facility] [address] (BEAKER) (test code = [place], [facility]) [address]: Pest Control Service Sales Agent/Techni josephine ID = [id number] for RICARDO CONNOLLY POCT-GLUCOSE [id number] 07:30:00 Test Item Value Reference Range Interpretation Comments POC-GLUCOSE METER 156 mg/dL 70-110 H : TESTED A T [facility] [address] (BEAKER) (test code = [place], 153) [address]: Pest Control Service Sales Agent/Techni josephine ID = [id number] for TATIANNA REDDY POCT-GLUCOSE [id number] 00:04:00 Test Item Value Reference Range Interpretation Comments POC-GLUCOSE METER 104 mg/dL 70-110 : TESTED A T [facility] [address] (BEAKER) (test code = [place], 1538) [address]: Pest Control Service Sales Agent/Techni josephine ID = [id number] for TAO HUDSON POCT-GLUCOSE [id number] 16:45:00 Test Item Value Reference Range Interpretation Comments POC-GLUCOSE METER 161 mg/dL 70-110 H : TESTED A T [facility] [address] (BEAKER) (test code = [place], 1538) [address]: Pest Control Service Sales Agent/Techni josephine ID = [id number] for ERNESTO-CARTER, S FLACOKARA POCT-GLUCOSE [id number] 12:54:00 Test Item Value Reference Range Interpretation Comments POC-GLUCOSE METER 160 mg/dL 70-110 H : TESTED A T [facility] [address] (BEAKER) (test code = [place], 1538) [address]: Pest Control Service Sales Agent/Techni josephine ID = [id number] for ERNESTO-CARTER, S HIKARA POCT-GLUCOSE [id number] 12:54:00 Test Item Value Reference Range Interpretation Comments POC-GLUCOSE METER 103 mg/dL 70-110 : TESTED A T [facility] [address] (BEAKER) (test code = [place], 1538) [address]: Pest Control Service Sales Agent/Techni josephine ID = [id number] for ERNESTO-CARTER, S HIKARA Basic Metabolic [id number] 05:59:00 Test Item Value Reference Range Interpretation Comments Sodium (test code = 135 meq/L 136-145 L 2951-2) Potassium (test code = 3.5 meq/L 3.5-5.1 2823-3) Chloride (test code = 97 meq/L 98-107 L 2075-0) CO2 (test code = 31 meq/L 22-29 H 8-9) BUN (test code = 16 mg/dL 7-21 3094-0) Creatinine (test code 0.75 mg/dL 0.57-1.25 = 2160-0) Glucose (test code = 123 mg/dL 70-105 H 2345-7) Calcium (test code = 7.9 mg/dL 8.4-10.2 L 72447-4) EGFR (test code = 103 mL/min/1.73 sq m [facility] [address]-5) NOT ACCURATE CREATININE CLEARANCE IN PREDICTING GLOMERULAR FILTRATION RATE . ESTIMATED GFR I S NOT APPLICABLE FOR DIALYSIS PATIENTS. BARRON (test code = BARRON) Pest Control Service Sales Agent ID - SUE L Lab Interpretation Abnormal (test code = 55364-7) [facility]2020-11-23 05:59:00 Test Item Value Reference Range Interpretation Comments Magnesium (test code = 1.8 mg/dL 1.6-2.6 65627-2) BARRON (test code = BARRON) Pest Control Service Sales Agent ID - SUE L Lab Interpretation (test Normal code = 42447-0) [facility]2020-11-23 05:59:00 Test Item Value Reference Range Interpretation Comments MAGNESIUM (BEAKER) (test code = 1.8 mg/dL 1.6-2.6 627) Pest Control Service Sales Agent ID - SUE LBASIC METABOLIC [id number] 05:59:00 Test Item Value Reference Range Interpretation Comments SODIUM (BEAKER) 135 meq/L 136-145 L (test code = 381) POTASSIUM (BEAKER) 3.5 meq/L 3.5-5.1 (test code = 379) CHLORIDE (BEAKER) 97 meq/L 98-107 L (test code = 382) CO2 (BEAKER) (test 31 meq/L 22-29 H code = 355) BLOOD UREA NITROGEN 16 mg/dL 7-21 (BEAKER) (test code = 354) CREATININE (BEAKER) 0.75 mg/dL 0.57-1.25 (test code = 358) GLUCOSE RANDOM 123 mg/dL 70-105 H (BEAKER) (test code = 652) CALCIUM (BEAKER) 7.9 mg/dL 8.4-10.2 L (test code = 697) EGFR (BEAKER) (test 103 mL/min/1.73 ESTIM ATED GFR IS code = 1092) sq m NOT ACCURATE CREATININE CLEARANCE IN PREDICTING GLOMERULAR FILTRATION RATE . ESTIMATED GFR I S NOT APPLICABLE FOR DIALYSIS PATIEN TS. Pest Control Service Sales Agent ID - LATASHAAYA LCBC (Hemogram only)2020-05-17 05:38:00 Test Item Value Reference Range Interpretation Comments WBC (test code = 6690-2) 7.0 3.5- 10.5 K/L RBC (test code = 789-8) 3.39 4.63- 6.08 M/L L MCHC (test code = 786-4) 32.2 32.3- 36.5 GM/DL L Hematocrit (test code = 4544-3) 32.3 % 40.1-51 L MCV (test code = 787-2) 95.3 fL 79-92.2 H MCH (test code = 785-6) 30.7 pg 25.7-32.2 RDW (test code = 788-0) 14.0 % 11.6-14.4 Platelets (test code = 777-3) 233 150- 450 K/CU MM MPV (test code = 87122-2) 9.1 fL 9.4-12.4 L nRBC (test code = 413) 0 0- 0 /100 WBC Lab Interpretation (test code = Abnormal 01703-8) [facility] (HEMOGRAM ONLY)2020-05-17 05:38:00 Test Item Value Reference Range Interpretation Comments WHITE BLOOD CELL COUNT (BEAKER) 7.0 K/ L 3.5-10.5 (test code = 775) RED BLOOD CELL COUNT (BEAKER) 3.39 M/ L 4.63-6.08 L (test code = 761) HEMOGLOBIN (BEAKER) (test code = 10.4 GM/DL 13.7-17.5 L 410) HEMATOCRIT (BEAKER) (test code = 32.3 % 40.1-51.0 L 411) MEAN CORPUSCULAR VOLUME (BEAKER) 95.3 fL 79.0-92.2 H (test code = 753) MEAN CORPUSCULAR HEMOGLOBIN 30.7 pg 25.7-32.2 (BEAKER) (test code = 751) MEAN CORPUSCULAR HEMOGLOBIN CONC 32.2 GM/DL 32.3-36.5 L (BEAKER) (test code = 752) RED CELL DISTRIBUTION WIDTH 14.0 % 11.6-14.4 (BEAKER) (test code = 412) PLATELET COUNT (BEAKER) (test 233 K/CU MM 150-450 code = 756) MEAN PLATELET VOLUME (BEAKER) 9.1 fL 9.4-12.4 L (test code = 754) NUCLEATED RED BLOOD CELLS 0 /100 WBC 0-0 (BEAKER) (test code = 413) POCT-GLUCOSE [id number] 18:18:00 Test Item Value Reference Range Interpretation Comments POC-GLUCOSE METER 97 mg/dL 70-110 : TESTED A T [facility] [address] (BEAKER) (test code = [place] [facility], 1538) [address]: Pest Control Service Sales Agent/Techni josephine ID = [id number] for GABE LEE POCT-GLUCOSE [id number] 17:29:00 Test Item Value Reference Range Interpretation Comments POC-GLUCOSE METER 66 mg/dL 70-110 L : Notified RN/MD: TESTED (BEAKER) ([facility] = [facility] [address] 1538) [facility], 770 30: Pest Control Service Sales Agent/Techni josephine ID = [id number] for GABE LEE POCT-GLUCOSE [id number] 12:11:00 Test Item Value Reference Range Interpretation Comments POC-GLUCOSE METER 124 mg/dL 70-110 H : TESTED A T [facility] [address] (BEAKER) (test code = [place], 1538) [address]: Pest Control Service Sales Agent/Techni josephine ID = [id number] for GABE MILLS POCT-GLUCOSE [id number] 08:07:00 Test Item Value Reference Range Interpretation Comments POC-GLUCOSE METER 141 mg/dL 70-110 H : TESTED A T [facility] [address] (BEAKER) (test code = [place], 1538) [address]: Pest Control Service Sales Agent/Techni josephine ID = [id number] for GABE MILLS BASIC METABOLIC [id number] 06:56:00 Test Item Value Reference Range Interpretation Comments SODIUM (BEAKER) 134 meq/L 136-145 L (test code = 381) POTASSIUM (BEAKER) 3.8 meq/L 3.5-5.1 (test code = 379) CHLORIDE (BEAKER) 98 meq/L 98-107 (test code = 382) CO2 (BEAKER) (test 31 meq/L 22-29 H code = 355) BLOOD UREA NITROGEN 19 mg/dL 7-21 (BEAKER) (test code = 354) CREATININE (BEAKER) 0.83 mg/dL 0.57-1.25 (test code = 358) GLUCOSE RANDOM 140 mg/dL 70-105 H (BEAKER) (test code = 652) CALCIUM (BEAKER) 8.1 mg/dL 8.4-10.2 L (test code = 697) EGFR (BEAKER) (test 91 mL/min/1.73 ESTIMA HARMONY GFR IS code = 1092) sq m NOT ACCURATE CREATININE CLEARANCE IN PREDICTING GLOMERULAR FILTRATION RATE . ESTIMATED GFR I S NOT APPLICABLE FOR DIALYSIS PATIEN TS. Pest Control Service Sales Agent ID - SUE [id number] 06:56:00 Test Item Value Reference Range Interpretation Comments MAGNESIUM (BEAKER) (test code = 1.8 mg/dL 1.6-2.6 627) Pest Control Service Sales Agent ID - SUE LCBC (HEMOGRAM ONLY)2020-05-16 06:35:00 Test Item Value Reference Range Interpretation Comments WHITE BLOOD CELL COUNT (BEAKER) 8.3 K/ L 3.5-10.5 (test code = 775) RED BLOOD CELL COUNT (BEAKER) 3.30 M/ L 4.63-6.08 L (test code = 761) HEMOGLOBIN (BEAKER) (test code = 10.2 GM/DL 13.7-17.5 L 410) HEMATOCRIT (BEAKER) (test code = 30.5 % 40.1-51.0 L 411) MEAN CORPUSCULAR VOLUME (BEAKER) 92.4 fL 79.0-92.2 H (test code = 753) MEAN CORPUSCULAR HEMOGLOBIN 30.9 pg 25.7-32.2 (BEAKER) (test code = 751) MEAN CORPUSCULAR HEMOGLOBIN CONC 33.4 GM/DL 32.3-36.5 (BEAKER) (test code = 752) RED CELL DISTRIBUTION WIDTH 13.7 % 11.6-14.4 (BEAKER) (test code = 412) PLATELET COUNT (BEAKER) (test 265 K/CU MM 150-450 code = 756) MEAN PLATELET VOLUME (BEAKER) 9.2 fL 9.4-12.4 L (test code = 754) NUCLEATED RED BLOOD CELLS 0 /100 WBC 0-0 (BEAKER) (test code = 413) POCT-GLUCOSE [id number] 21:25:00 Test Item Value Reference Range Interpretation Comments POC-GLUCOSE METER 253 mg/dL 70-110 H : TESTED A T [facility] 6720 (BEAKER) (test code = [place], 1538) [address]: Pest Control Service Sales Agent/Techni josephine ID = [id number] for ROSS GUTHRIE POCT-GLUCOSE [id number] 17:11:00 Test Item Value Reference Range Interpretation Comments POC-GLUCOSE METER 310 mg/dL 70-110 H : TESTED A T [facility] 6720 (BEAKER) (test code = WAQ[place] [facility], 1538) 07492: Pest Control Service Sales Agent/Techni josephine ID = [id number] for Lindsay Cid ECG 12 [id number] 16:15:17Interface, External Ris In - 05/15/2020 4:15 PM CSTVentricular Rate 78 BPMAtrial Rate 78 BPMP-R Interval 152 msQRS Duration 78 msQ-T Interval 376 msQTC Calculation(Bazett) 428 msP [place] 22 degreesR [place] 35 degreesT [place] 11 degreesNormal sinus rhythmLow voltage QRSAbnormal ECGWhen compared with ECG of 07-MAY-2020 17:02,Significant changes have occurredConfirmed by MD Guido Roberto ([id number]) on 05/15/2020 4:15:12 PM [facility] [place] [id number] 11:51:00 Test Item Value Reference Range Interpretation Comments SODIUM (BEAKER) 135 meq/L 136-145 L (test code = 381) POTASSIUM (BEAKER) 4.2 meq/L 3.5-5.1 (test code = 379) CHLORIDE (BEAKER) 96 meq/L 98-107 L (test code = 382) CO2 (BEAKER) (test 32 meq/L 22-29 H code = 355) BLOOD UREA NITROGEN 19 mg/dL 7-21 (BEAKER) (test code = 354) CREATININE (BEAKER) 1.02 mg/dL 0.57-1.25 (test code = 358) GLUCOSE RANDOM 367 mg/dL 70-105 H (BEAKER) (test code = 652) CALCIUM (BEAKER) 8.1 mg/dL 8.4-10.2 L (test code = 697) EGFR (BEAKER) (test 72 mL/min/1.73 ESTIMA HARMONY GFR IS code = 1092) sq m NOT ACCURATE CREATININE CLEARANCE IN PREDICTING GLOMERULAR FILTRATION RATE . ESTIMATED GFR I S NOT APPLICABLE FOR DIALYSIS PATIEN TS. Pest Control Service Sales Agent ID - PATRICIA [id number] 11:51:00 Test Item Value Reference Range Interpretation Comments MAGNESIUM (BEAKER) (test code = 1.7 mg/dL 1.6-2.6 627) Pest Control Service Sales Agent ID - PATRICIA CCBC (HEMOGRAM ONLY)2020-05-15 11:26:00 Test Item Value Reference Range Interpretation Comments WHITE BLOOD CELL COUNT (BEAKER) 8.4 K/ L 3.5-10.5 (test code = 775) RED BLOOD CELL COUNT (BEAKER) 3.29 M/ L 4.63-6.08 L (test code = 761) HEMOGLOBIN (BEAKER) (test code = 10.3 GM/DL 13.7-17.5 L 410) HEMATOCRIT (BEAKER) (test code = 31.2 % 40.1-51.0 L 411) MEAN CORPUSCULAR VOLUME (BEAKER) 94.8 fL 79.0-92.2 H (test code = 753) MEAN CORPUSCULAR HEMOGLOBIN 31.3 pg 25.7-32.2 (BEAKER) (test code = 751) MEAN CORPUSCULAR HEMOGLOBIN CONC 33.0 GM/DL 32.3-36.5 (BEAKER) (test code = 752) RED CELL DISTRIBUTION WIDTH 13.8 % 11.6-14.4 (BEAKER) (test code = 412) PLATELET COUNT (BEAKER) (test 225 K/CU MM 150-450 code = 756) MEAN PLATELET VOLUME (BEAKER) 9.2 fL 9.4-12.4 L (test code = 754) NUCLEATED RED BLOOD CELLS 0 /100 WBC 0-0 (BEAKER) (test code = 413) POCT-GLUCOSE [id number] 07:40:00 Test Item Value Reference Range Interpretation Comments POC-GLUCOSE METER 223 mg/dL 70-110 H : TESTED A T [facility] 6720 (BEAKER) (test code = [place], 1538) 259[address]: Pest Control Service Sales Agent/Techni josephine ID = [id number] for Lindsay Cid POCT-GLUCOSE [id number] 22:08:00 Test Item Value Reference Range Interpretation Comments POC-GLUCOSE METER 148 mg/dL 70-110 H : TESTED A T [facility] 6720 (BEAKER) (test code = [place], 1538) 40605: Pest Control Service Sales Agent/Techni josephine ID = [id number] for Debbie Flynn SARS-CoV2/RT-PCR (Asymptomatic ONLY)2020-05-14 16:01:00 Test Item Value Reference Range Interpretation Comments SARS-COV2/RT-PCR Negative Not Detected, (test code = Negative, See 48702-3) external report for linked test SARS-COV-2 [facility] PERFORMING LAB (test code = 64128-0) BARRON (test code = Negative result for this BARRON) test determines that SARS-CoV-2 RNA was not present in the [...] the Act. Testing was performed using the [employer] SARS-CoV-2 assay. Fact Sheet for Healthcare Providers:https://www.[facility].[place]ello/robyn/RT_SA NI-LtI-7_BGK_Uqyr_Pjgay_ 51-610461.pdf Fact Sheet for Healthcare Patients:https://www.[facility].[place]/robyn/RT_SAR Z-FtP-2_Rywsfvm_Dhfd_Zsm et_EN_51-308994W4.pdf Performing Laboratory:[facility] [place] [address] [facility] [id number] 16:01:00 Test Item Value Reference Range Interpretation Comments POC-GLUCOSE METER 189 mg/dL 70-110 H : TESTED A T [facility] 6720 (DELFINA) (test code = [place] [facility], 1538) 284[address]: Pest Control Service Sales Agent/Techni josephine ID = [id number] for Lindsay Cid SARS-COV2/RT-PCR ([facility])2020-05-14 16:01:00 Test Item Value Reference Range Interpretation Comments SARS-COV2/RT-PCR (test Negative Not Detected, Negative, code = 1527275) See external report for linked test SARS-COV-2 PERFORMING LAB [facility] (test code = 9105835) Negative result for this test determines that SARS-CoV-2 RNA was not present in the specimen above the Limit of Detection (LOD). However, Negative results do not preclude SARS-CoV-2 infection and should not be used as the sole basis for treatment or patient management decisions. Negative results mustbe combined with clinical observations, patient history, and epidemiological information. A false negative result may occur if a specimen is improperly collected, transported or handled. A false negative result should be considered if patient's recent exposures or clinical presentation indicate that COVID-19 (SARS-CoV-2) is likely and diagnostic tests for other causes of illness are negative. Re-testing should be considered in cases of suspected false negatives.The limit of detection for this assay is 100 copies/mL.This SARS CoV-2 test is a real-time RT-PCR test intended for the qualitative detection of nucleic acid from SARS-CoV-2 in a nasopharyngeal swab specimen collected from individuals susp ected of COVID-19 by their healthcare provider.This test has not been Food and Drug [...] is revoked under Section 564(g) of the Act.Testing was performed using the [employer] SARS-CoV-2 assay.Fact Sheet for Healthcare Providers:https://www.[employer].bello/robyn/ NN_KELU-FtF-7_WMI_Zkrr_Vwbvu_38-864571.pdfFact Sheet for Healthcare Patients:https://www.[employer]/robyn/HM_QVIF-OqA-0_Gyztujx_Pnfz_Wrzag_EA_07-382992O5.pdfPerforming Laboratory:[facility] [place] [address] RAD, CHEST, 1 VIEW, NON [id number] 15:49:00Reason for exam:->chest painShould this be performed at the bedside?->Yes [facility] : 1950 Sex: MFINAL REPORT CLINICAL HISTORY: chest pain TECHNIQUE: 1 view of the chest. COMPARISON: 05/13/2020 IMPRESSION: There is no definitive evidence for pneumothorax. Bilateral lower lung opacities have decreased. A small left pleural effusion appears decreased. The cardiomediastinal silhouette is magnified by technique with sternotomy wires. Signed: Elaine Beck MDReport Verified Date/Time: 05/14/2020 15:49:04 Reading Location: [facility] Radiology Reading Room XR chest 1 view portable / [id number] 15:49:00 Interface, External Ris In - 05/14/2020 3:51 PM CSTFINAL REPORT CLINICAL HISTORY: chest pain TECHNIQUE: 1 view of the chest. COMPARISON: 05/13/2020 IMPRESSION: There is no definitive evidence for pneumothorax. Bilateral lower lung opacities have decreased. A small left pleuraleffusion appears decreased. The cardiomediastinal silhouette is magnified by technique with sternotomy wires. Signed: Elaine Beck MDReport Verified Date/Time: 05/14/2020 15:49:04 Reading Location: [facility] Radiology Reading Room [facility] (HEMOGRAM ONLY)2020-05-14 13:33:00 Test Item Value Reference Range Interpretation Comments WHITE BLOOD CELL COUNT (BEAKER) 11.1 K/ L 3.5-10.5 H (test code = 775) RED BLOOD CELL COUNT (BEAKER) 3.41 M/ L 4.63-6.08 L (test code = 761) HEMOGLOBIN (BEAKER) (test code = 10.6 GM/DL 13.7-17.5 L 410) HEMATOCRIT (BEAKER) (test code = 31.9 % 40.1-51.0 L 411) MEAN CORPUSCULAR VOLUME (BEAKER) 93.5 fL 79.0-92.2 H (test code = 753) MEAN CORPUSCULAR HEMOGLOBIN 31.1 pg 25.7-32.2 (BEAKER) (test code = 751) MEAN CORPUSCULAR HEMOGLOBIN CONC 33.2 GM/DL 32.3-36.5 (BEAKER) (test code = 752) RED CELL DISTRIBUTION WIDTH 13.9 % 11.6-14.4 (BEAKER) (test code = 412) PLATELET COUNT (BEAKER) (test 282 K/CU MM 150-450 code = 756) MEAN PLATELET VOLUME (BEAKER) 9.4 fL 9.4-12.4 (test code = 754) NUCLEATED RED BLOOD CELLS 0 /100 WBC 0-0 (BEAKER) (test code = 413) POCT-GLUCOSE [id number] 12:50:00 Test Item Value Reference Range Interpretation Comments POC-GLUCOSE METER 179 mg/dL 70-110 H : TESTED A T [facility] 6720 (BEAKER) (test code = [place], 1538) [address]: Pest Control Service Sales Agent/Techni josephine ID = [id number] for Palak, Lindsay BASIC METABOLIC [id number] 11:45:00 Test Item Value Reference Range Interpretation Comments SODIUM (BEAKER) 134 meq/L 136-145 L (test code = 381) POTASSIUM (BEAKER) 4.0 meq/L 3.5-5.1 (test code = 379) CHLORIDE (BEAKER) 98 meq/L 98-107 (test code = 382) CO2 (BEAKER) (test 30 meq/L 22-29 H code = 355) BLOOD UREA NITROGEN 16 mg/dL 7-21 (BEAKER) (test code = 354) CREATININE (BEAKER) 0.88 mg/dL 0.57-1.25 (test code = 358) GLUCOSE RANDOM 207 mg/dL 70-105 H (BEAKER) (test code = 652) CALCIUM (BEAKER) 8.0 mg/dL 8.4-10.2 L (test code = 697) EGFR (BEAKER) (test 85 mL/min/1.73 ESTIMA HARMONY GFR IS code = 1092) sq m NOT ACCURATE CREATININE CLEARANCE IN PREDICTING GLOMERULAR FILTRATION RATE . ESTIMATED GFR I S NOT APPLICABLE FOR DIALYSIS PATIEN TS. Pest Control Service Sales Agent ID - PAZDIOMEDESGPOCT-GLUCOSE [id number] 08:00:00 Test Item Value Reference Range Interpretation Comments POC-GLUCOSE METER 211 mg/dL 70-110 H : TESTED A T [facility] 6720 (BEAKER) (test code = [place], 1538) [address]: Pest Control Service Sales Agent/Techni josephine ID = [id number] for Palak, Lindsay POCT-GLUCOSE [id number] 20:13:00 Test Item Value Reference Range Interpretation Comments POC-GLUCOSE METER 181 mg/dL 70-110 H : TESTED A T [facility] 6720 (BEAKER) (test code = [place], 1538) [address]: Pest Control Service Sales Agent/Techni josephine ID = [id number] for Re yes, Sairy POCT-GLUCOSE [id number] 17:11:00 Test Item Value Reference Range Interpretation Comments POC-GLUCOSE METER 247 mg/dL 70-110 H : [facility] ([place]) (test code = WAQ[place] [facility], 1538) [address]: Pest Control Service Sales Agent/Techni josephine ID = [id number] for OR PHEY, JOSE MANUEL RAD, CHEST, 1 VIEW, NON [id number] 14:31:00Reason for exam:- >HypoxiaShould this be performed at the bedside?->Yes [facility] : 1950 Sex: MFINAL REPORT CLINICAL HISTORY: Hypoxia TECHNIQUE: 1 view of the chest. COMPARISON: 05/12/2020 IMPRESSION: There is a trace left apical pneumothorax. Left greater than rightlower lung opacities are again seen along with a small left pleural effusion. The cardiomediastinal silhouette is magnified by technique with sternotomy wires. Signed: Elaine Beckort Verified Date/Time: 05/13/2020 14:31:31 Reading Location: [facility] Radiology Reading Room POCT-GLUCOSE [id number] 12:44:00 Test Item Value Reference Range Interpretation Comments POC-GLUCOSE METER 350 mg/dL 70-110 H : TESTED A T [facility] 6720 (DELFINA) (test code = [place], 1538) [address]: Pest Control Service Sales Agent/Techni josephine ID = [id number] for OR PHEY, JOSE MANUEL POCT-GLUCOSE [id number] 07:56:00 Test Item Value Reference Range Interpretation Comments POC-GLUCOSE METER 218 mg/dL 70-110 H : TESTED A T [facility] 6720 (BEAKER) (test code = WAQAS Baldwin [facility], 1538) 47626: Pest Control Service Sales Agent/Techni josephine ID = [id number] for OR JOSE MANUEL VELASCO POCT-GLUCOSE [id number] 21:04:00 Test Item Value Reference Range Interpretation Comments POC-GLUCOSE METER 262 mg/dL 70-110 H : TESTED A T [facility] 6720 (BEAKER) (test code = WAQAS Baldwin [facility], 1538) 33908: Pest Control Service Sales Agent/Techni josephine ID = [id number] for Re yes, Sairy Creatinine, random [id number] 17:27:00 Test Item Value Reference Range Interpretation Comments Creatinine, Ur 119.5 mg/dL (test code = 2161-8) BARRON (test code = Reference Range: No BARRON) NormalsOperator ID - [facility] [id number] 17:27:00 Test Item Value Reference Range Interpretation Comments Sodium Urine (test 29 meq/L code = 2955-3) BARRON (test code = Reference Range: No BARRON) NormalsOperator ID - [facility]OM [id number] 17:27:00 Test Item Value Reference Range Interpretation Comments CREATININE URINE (BEAKER) (test 119.5 mg/dL code = 375) Reference Range: No NormalsOperator ID - BSSODIUM, RANDOM [id number] 17:27:00 Test Item Value Reference Range Interpretation Comments SODIUM URINE (BEAKER) (test code = 29 meq/L 243) Reference Range: No NormalsOperator ID - BSUrinalysis w/Microscopic + Reflex to [id number] 17:22:00 Test Item Value Reference Range Interpretation Comments Color, UA (test code = Yellow 5778-6) Clarity, UA (test code = Hazy 5767-9) Specific [place], UA (test 1.029 1.001-1.035 code = 5811-5) pH, UA (test code = 6.0 5.0-8.0 5803-2) Protein, UA (test code = 30 mg/dL Negative A 87654-9) Glucose, UA (test code = >1000 mg/dL Negative A 365) Ketones, UA (test code = 10 mg/dL Negative A 2514-8) Bilirubin, UA (test code = Negative Negative 60581-6) Blood, UA (test code = Negative Negative 02956-0) Nitrite, UA (test code = Negative Negative 5802-4) Leukocytes, UA (test code Negative Negative = 5799-2) Urobilinogen, UA (test 0.2 mg/dL 0.2-1 code = 30591-4) RBC, UA (test code = 31 /HPF 11094-2) WBC, UA (test code = 11 /HPF 5821-4) Mucus (test code = 8247-9) Rare Yeast (test code = Many 98514-5) Specimen Source (test code = 2795) BARRON (test code = BARRON) P[employer] Service Sales Agent ID - [auto]Pest Control Service Sales Agent ID - tech Lab Interpretation (test Abnormal code = 75485-0) [facility] URINE [id number] 17:22:00 Test Item Value Reference Range Interpretation Comments COLOR (BEAKER) (test code = 470) Yellow CLARITY (BEAKER) (test code = Hazy 469) SPECIFIC GRAVITY UA (BEAKER) 1.029 1.001-1.035 (test code = 468) PH UA (BEAKER) (test code = 467) 6.0 5.0-8.0 PROTEIN UA (BEAKER) (test code = 30 mg/dL Negative A 464) GLUCOSE UA (BEAKER) (test code = >1000 mg/dL Negative A 365) KETONES UA (BEAKER) (test code = 10 mg/dL Negative A 371) BILIRUBIN UA (BEAKER) (test code Negative Negative = 462) BLOOD UA (BEAKER) (test code = Negative Negative 461) NITRITE UA (BEAKER) (test code = Negative Negative 465) LEUKOCYTE ESTERASE UA (BEAKER) Negative Negative (test code = 466) UROBILINOGEN UA (BEAKER) (test 0.2 mg/dL 0.2-1.0 code = 463) RBC UA (BEAKER) (test code = 519) 31 /HPF WBC UA (BEAKER) (test code = 520) 11 /HPF MUCUS (BEAKER) (test code = 1574) Rare YEAST (BEAKER) (test code = 1585) Many SOURCE(BEAKER) (test code = 2795) P[employer] Control Service Sales Agent ID - [auto]Pest Control Service Sales Agent ID - techOsmolality, [id number] 17:20:00 Test Item Value Reference Range Interpretation Comments Osmolality, Ur (test code = 744 50-1,200 mOsm/kg mOsm/kg 2695-5) Lab Interpretation (test code Normal = 21686-6) [facility] HospitalOSMOLALITY, [id number] 17:20:00 Test Item Value Reference Range Interpretation Comments OSMOLALITY URINE (BEAKER) (test 744 mOsm/kg 50-1,200 mOsm/kg code = 614) POCT-GLUCOSE [id number] 17:14:00 Test Item Value Reference Range Interpretation Comments POC-GLUCOSE METER 272 mg/dL 70-110 H : TESTED A T [facility] 6720 (BEAKER) (test code = [facility] Denny [facility], 1538) [address]: Pest Control Service Sales Agent/Techni josephine ID = [id number] for OR KRISTA JOSE MANUEL POCT-GLUCOSE [id number] 12:37:00 Test Item Value Reference Range Interpretation Comments POC-GLUCOSE METER 341 mg/dL 70-110 H : TESTED A T [facility] (BEAKER) (test code = [place], 1538) [address]: Pest Control Service Sales Agent/Techni josephine ID = [id number] for OR JOSE MANUEL VELASCO SARS-COV2/RT-PCR ([facility])2020-05-12 11:22:00 Test Item Value Reference Range Interpretation Comments SARS-COV2/RT-PCR (test Negative Not Detected, Negative, code = 0128719) See external report for linked test SARS-COV-2 PERFORMING LAB [facility] (test code = 9061452) Negative result for this test determines that SARS-CoV-2 RNA was not present in the specimen above the Limit of Detection (LOD). However, Negative results do not preclude SARS-CoV-2 infection and should not be used as the sole basis for treatment or patient management decisions. Negative results mustbe combined with clinical observations, patient history, and epidemiological information. A false negative result may occur if a specimen is improperly collected, transported or handled. A false negative result should be considered if patient's recent exposures or clinical presentation indicate that COVID-19 (SARS-CoV-2) is likely and diagnostic tests for other causes of illness are negative. Re-testing should be considered in cases of suspected false negatives.The limit of detection for this assay is 800 copies/mL.This SARS CoV-2 test is a real-time RT-PCR test intended for the qualitative detection of nucleic acid from SARS-CoV-2 in a nasopharyngeal swab specimen collected from individuals suspected of COVID-19 by their healthcare provider.This test has not been Food and Drug [...] is revoked under Section 564(g) of the Act.Fact Sheet for Healthcare Providers:https://www.[employer]/sites/default/files/product/documents/Fact_Shee x_SF_Owwbeqpwa_Bcrx_VXHB-HdQ-1.pdfFact Sheet for Healthcare Patients:https://www.[employer]/sites/default/files/product/ documents/Yhfm_Yaaov_Vlohvcyj_Czdi_YHIQ-AuJ-1.pdfPerforming Laboratory:[facility], [place] [address]QOM, CHEST, 1 VIEW, NON [id number] 10:47:00Reason for exam:->s/p ACBShould this be performed at the bedside?->Yes [facility] : 1950 Sex: MFINAL REPORT CLINICAL HISTORY: s/p ACB TECHNIQUE: 1 view of the chest. COMPARISON: 05/11/2020 IMPRESSION: Left lung base pleural parenchymal opacity is unchanged. There are mildly increased lung markings elsewhere. The cardiomediastinal silhouette is magnified by technique with sternotomy wires. Signed: Elaine Beck MDReport Verified Date/Time: 05/12/2020 10:47:12 Reading Location: [facility] Radiology Reading Room Electronically signed by: ELAINE BECK M.D.on 05/12/2020 10:47 AMComprehensive metabolic panel 2020-05-12 10:24:00 Test Item Value Reference Range Interpretation Comments Protein, Total (test 5.4 6.0- 8.3 gm/dL L code = 2885-2) Albumin (test code = 2.8 g/dL 3.5-5 L 56131-7) Alkaline Phosphatase 91 U/L 40-150 (test code = 6768-6) Total Bilirubin (test 0.7 mg/dL 0.2-1.2 code = 1975-2) Sodium (test code = 129 meq/L 136-145 L 2951-2) Potassium (test code = 4.3 meq/L 3.5-5.1 2823-3) Chloride (test code = 93 meq/L 98-107 L 2075-0) CO2 (test code = 26 meq/L 22-29 2028-9) BUN (test code = 18 mg/dL 7-21 3094-0) Creatinine (test code 1.13 mg/dL 0.57-1.25 = 2160-0) Glucose (test code = 322 mg/dL 70-105 H 2345-7) Calcium (test code = 8.5 mg/dL 8.4-10.2 69566-3) AST (test code = 13 U/L 5-34 1920-8) ALT (test code = 14 U/L 6-55 1742-6) EGFR (test code = 64 mL/min/1.73 [place] [address]-9) NOT ACCURATE CREATININE CLEARANCE IN PREDICTING GLOMERULAR FILTRATION RATE . ESTIMATED GFR I S NOT APPLICABLE FOR DIALYSIS PATIENTS. BARRON (test code = BARRON) Pest Control Service Sales Agent ID - PATRICIA C Lab Interpretation Abnormal (test code = 17852-2) [facility] HospitalCOMPREHENSIVE METABOLIC [id number] 10:24:00 Test Item Value Reference Range Interpretation Comments TOTAL PROTEIN 5.4 gm/dL 6.0-8.3 L (BEAKER) (test code = 770) ALBUMIN (BEAKER) 2.8 g/dL 3.5-5.0 L (test code = 1145) ALKALINE PHOSPHATASE 91 U/L 40-150 (BEAKER) (test code = 346) BILIRUBIN TOTAL 0.7 mg/dL 0.2-1.2 (BEAKER) (test code = 377) SODIUM (BEAKER) (test 129 meq/L 136-145 L code = 381) POTASSIUM (BEAKER) 4.3 meq/L 3.5-5.1 (test code = 379) CHLORIDE (BEAKER) 93 meq/L 98-107 L (test code = 382) CO2 (BEAKER) (test 26 meq/L 22-29 code = 355) BLOOD UREA NITROGEN 18 mg/dL 7-21 (BEAKER) (test code = 354) CREATININE (BEAKER) 1.13 mg/dL 0.57-1.25 (test code = 358) GLUCOSE RANDOM 322 mg/dL 70-105 H (BEAKER) (test code = 652) CALCIUM (BEAKER) 8.5 mg/dL 8.4-10.2 (test code = 697) AST (SGOT) (BEAKER) 13 U/L 5-34 (test code = 353) ALT (SGPT) (BEAKER) 14 U/L 6-55 (test code = 347) EGFR (BEAKER) (test 64 mL/min/1.73 ESTIMA HARMONY GFR IS code = 1092) sq m NOT ACCURATE CREATININE CLEARANCE IN PREDICTING GLOMERULAR FILTRATION RATE . ESTIMATED GFR I S NOT APPLICABLE FOR DIALYSIS PATIEN TS. Pest Control Service Sales Agent ID - JUN KDonfgxjo9699-07-00 10:13:00 Test Item Value Reference Range Interpretation Comments Cortisol, Total (test code 16.9 ug/dL 3.7-19.4 = 2755) BARRON (test code = BARRON) Pest Control Service Sales Agent ID - PATRICIA C Lab Interpretation (test Normal code = 09989-6) [facility] HospitalCORTISOL2020-11-18 10:13:00 Test Item Value Reference Range Interpretation Comments CORTISOL, TOTAL (BEAKER) (test 16.9 ug/dL 3.7-19.4 code = 2755) Pest Control Service Sales Agent ID - PATRICIA CCBC (HEMOGRAM ONLY)2020-05-12 09:43:00 Test Item Value Reference Range Interpretation Comments WHITE BLOOD CELL COUNT (BEAKER) 16.0 K/ L 3.5-10.5 H (test code = 775) RED BLOOD CELL COUNT (BEAKER) 3.46 M/ L 4.63-6.08 L (test code = 761) HEMOGLOBIN (BEAKER) (test code = 10.8 GM/DL 13.7-17.5 L 410) HEMATOCRIT (BEAKER) (test code = 32.1 % 40.1-51.0 L 411) MEAN CORPUSCULAR VOLUME (BEAKER) 92.8 fL 79.0-92.2 H (test code = 753) MEAN CORPUSCULAR HEMOGLOBIN 31.2 pg 25.7-32.2 (BEAKER) (test code = 751) MEAN CORPUSCULAR HEMOGLOBIN CONC 33.6 GM/DL 32.3-36.5 (BEAKER) (test code = 752) RED CELL DISTRIBUTION WIDTH 14.3 % 11.6-14.4 (BEAKER) (test code = 412) PLATELET COUNT (BEAKER) (test 213 K/CU MM 150-450 code = 756) MEAN PLATELET VOLUME (BEAKER) 9.7 fL 9.4-12.4 (test code = 754) NUCLEATED RED BLOOD CELLS 0 /100 WBC 0-0 (BEAKER) (test code = 413) POCT-GLUCOSE [id number] 07:33:00 Test Item Value Reference Range Interpretation Comments POC-GLUCOSE METER 282 mg/dL 70-110 H : TESTED A T [facility] 6720 (BEAKER) (test code = [place], 1538) [address]: Pest Control Service Sales Agent/Techni josephine ID = [id number] for OR JOSE MANUEL VELASCO Calcium, [id number] 05:09:00 Test Item Value Reference Range Interpretation Comments Calcium, Ion (test code = 1.09 mmol/L 1.12-1.27 L 1993-08) pH, Blood (test code = 7.41 62747-1) BARRON (test code = BARRON) Check serum Ionized Calcium level after 4 hours after IV Calcium replacement. Lab Interpretation (test Abnormal code = 74437-5) [facility] HospitalCALCIUM, [id number] 05:09:00 Test Item Value Reference Range Interpretation Comments CALCIUM IONIZED (BEAKER) (test 1.09 mmol/L 1.12-1.27 L code = 698) PH, BLOOD (BEAKER) (test code = 7.41 1810) Check serum Ionized Calcium level after 4 hours after IV Calcium replacement. POCT-GLUCOSE [id number] 21:31:00 Test Item Value Reference Range Interpretation Comments POC-GLUCOSE METER 330 mg/dL 70-110 H : TESTED A T [facility] 6720 (BEAKER) (test code = [facility] Denny [facility], 1538) [address]: Pest Control Service Sales Agent/Techni josephine ID = [id number] for IBRAHIMA LUIZ ROSS POCT-GLUCOSE [id number] 17:53:00 Test Item Value Reference Range Interpretation Comments POC-GLUCOSE METER 279 mg/dL 70-110 H : TESTED A T [facility] 6720 (BEAKER) (test code = [place], 1538) [address]: Pest Control Service Sales Agent/Techni josephine ID = [id number] for Lindsay Cid RAD, CHEST, 1 VIEW, NON [id number] 13:06:00Reason for exam:->post-chest tube removalShould this be performed at the bedside?->Yes [facility] : 1950 Sex: MFINAL REPORT CLINICAL HISTORY: post-chest tube removal TECHNIQUE: 1 view of the chest. COMPARISON: 05/10/2020 IMPRESSION: The supporting lines and tubes have been removed. There is no pneumothorax. Left lower lung pleural parenchymal opacity has decreased. There is no focal right lung consolidation. The cardiomediastinal silhouette is magnified by technique with sternotomy wires. Signed: Elaine Beck MDReport Verified Date/Time: 05/11/2020 13:06:14 Reading Location: [facility] Radiology Reading Room 01:06 PMPOCT-GLUCOSE METER 2020-05-11 12:37:00 Test Item Value Reference Range Interpretation Comments POC-GLUCOSE METER 291 mg/dL 70-110 H : TESTED A T [facility] 6720 (BEAKER) (test code = [facility] [employer] [facility], 1538) 00656: Pest Control Service Sales Agent/Techni josephine ID = [id number] for Mindy Winkler mra POCT-GLUCOSE [id number] 12:37:00 Test Item Value Reference Range Interpretation Comments POC-GLUCOSE METER 257 mg/dL 70-110 H : TESTED A T [facility] 6720 (BEAKER) (test code = [facility] [employer] [facility], 1538) [address]: Pest Control Service Sales Agent/Techni josephine ID = [id number] for HALLIE CARLOS ENRIQUEGABE BARRAZA BASIC METABOLIC [id number] 06:27:00 Test Item Value Reference Range Interpretation Comments SODIUM (BEAKER) 135 meq/L 136-145 L (test code = 381) POTASSIUM (BEAKER) 4.1 meq/L 3.5-5.1 (test code = 379) CHLORIDE (BEAKER) 99 meq/L 98-107 (test code = 382) CO2 (BEAKER) (test 25 meq/L 22-29 code = 355) BLOOD UREA NITROGEN 17 mg/dL 7-21 (BEAKER) (test code = 354) CREATININE (BEAKER) 1.10 mg/dL 0.57-1.25 (test code = 358) GLUCOSE RANDOM 262 mg/dL 70-105 H (BEAKER) (test code = 652) CALCIUM (BEAKER) 7.9 mg/dL 8.4-10.2 L (test code = 697) EGFR (BEAKER) (test 66 mL/min/1.73 ESTIMA HARMONY GFR IS code = 1092) sq m NOT ACCURATE CREATININE CLEARANCE IN PREDICTING GLOMERULAR FILTRATION RATE . ESTIMATED GFR I S NOT APPLICABLE FOR DIALYSIS PATIEN TS. Pest Control Service Sales Agent ID - ASURUMvviprfgib0839-69-29 06:22:00 Test Item Value Reference Range Interpretation Comments Phosphorus (test code = 2.4 mg/dL 2.3-4.7 2777-1) BARRON (test code = BARRON) Pest Control Service Sales Agent ID - EDASI Lab Interpretation (test Normal code = 35825-9) [facility] HospitalMAGNESIUM2020-11-17 06:22:00 Test Item Value Reference Range Interpretation Comments MAGNESIUM (BEAKER) (test code = 2.2 mg/dL 1.6-2.6 627) Pest Control Service Sales Agent ID - [id number] 06:22:00 Test Item Value Reference Range Interpretation Comments PHOSPHORUS (BEAKER) (test code = 2.4 mg/dL 2.3-4.7 604) Pest Control Service Sales Agent ID - EDASICALCIUM, [id number] 05:51:00 Test Item Value Reference Range Interpretation Comments CALCIUM IONIZED (BEAKER) (test 1.10 mmol/L 1.12-1.27 L code = 698) PH, BLOOD (BEAKER) (test code = 7.34 1810) Check serum Ionized Calcium level after 4 hours after IV Calcium replacement.CBC (HEMOGRAM ONLY)2020-05-11 05:44:00 Test Item Value Reference Range Interpretation Comments WHITE BLOOD CELL COUNT 12.7 K/ L 3.5-10.5 H (BEAKER) (test code = 775) RED BLOOD CELL COUNT 3.21 M/ L 4.63-6.08 L (BEAKER) (test code = 761) HEMOGLOBIN (BEAKER) 9.9 GM/DL 13.7-17.5 L (test code = 410) HEMATOCRIT (BEAKER) 30.0 % 40.1-51.0 L (test code = 411) MEAN CORPUSCULAR 93.5 fL 79.0-92.2 H Discordant MCV VOLUME (BEAKER) (test result compared to code = 753) previous result ; clinical correl ation required. MEAN CORPUSCULAR 30.8 pg 25.7-32.2 HEMOGLOBIN (BEAKER) (test code = 751) MEAN CORPUSCULAR 33.0 GM/DL 32.3-36.5 HEMOGLOBIN CONC (BEAKER) (test code = 752) RED CELL DISTRIBUTION 14.5 % 11.6-14.4 H WIDTH (BEAKER) (test code = 412) PLATELET COUNT 133 K/CU MM 150-450 L (BEAKER) (test code = 756) MEAN PLATELET VOLUME 10.4 fL 9.4-12.4 (BEAKER) (test code = 754) NUCLEATED RED BLOOD 0 /100 WBC 0-0 CELLS (BEAKER) (test code = 413) Prepare [id number] 23:54:00 Test Item Value Reference Range Interpretation Comments CROSSMATCH (test code = COMPATIBLE 4) Unit ABO (test code = A Pos 1818013) UNIT NUMBER (test code = [id number] 934-0) Status (test code = RETURNED FROM ISSUE 6802560) Blood Bank Product (test RED BLOOD CELLS code = 2263) PRODUCT CODE (test code = Z5805K29 933-2) [facility] HospitalPrepare [id number] 23:54:00 Test Item Value Reference Range Interpretation Comments Unit ABO (test code = 5201607) A Pos UNIT NUMBER (test code = [id number] 934-0) Status (test code = 0947152) TX_TIMEINCHART Blood Bank Product (test code FFP = 2263) PRODUCT CODE (test code = D4551R43 933-2) [facility] HospitalPOCT-GLUCOSE [id number] 21:34:00 Test Item Value Reference Range Interpretation Comments POC-GLUCOSE METER 190 mg/dL 70-110 H : TESTED A T [facility] 6720 (BEAKER) (test code = [place], 1538) [address]: Pest Control Service Sales Agent/Techni josephine ID = [id number] for RO LUIZ, ROSS POCT-GLUCOSE [id number] 16:44:00 Test Item Value Reference Range Interpretation Comments POC-GLUCOSE METER 129 mg/dL 70-110 H : TESTED A T [facility] 6720 (BEAKER) (test code = [place], 1538) [address]85[address]: Pest Control Service Sales Agent/Techni josephine ID = [id number] for Ro binson, Sara CALCIUM, [id number] 14:52:00 Test Item Value Reference Range Interpretation Comments CALCIUM IONIZED (BEAKER) (test 1.11 mmol/L 1.12-1.27 L code = 698) PH, BLOOD (BEAKER) (test code = 7.35 1810) POCT-GLUCOSE [id number] 12:03:00 Test Item Value Reference Range Interpretation Comments POC-GLUCOSE METER 205 mg/dL 70-110 H : TESTED A T [facility] 6720 (BEAKER) (test code = [facility] [place], 1538) [address]: Pest Control Service Sales Agent/Techni josephine ID = [id number] for Sara Herring Platelet Aggregation: Function [id number] 10:23:00 Test Item Value Reference Range Interpretation Comments Pathologist: (test code Ted Lynch MD = 2622) (electronic signature) Platelets (test code = 275 150- 430 K/CU MM 2656) ADP (test code = 68 % 62-100 80775-4) Platelet Rich Plasma 297 200- 300 k/cu mm (test code = 2134) Plt. Function Screen Normal aggregation Interpretation (test results with ADP. code = 4655) No evidence of platelet dysfunction or P2Y12 inhibitor effect. BARRON (test code = BARRON) Platelet Function Screen results may be falsely low with platelet counts<75,000/cu mm. [facility] HospitalPLATELET AGGREGATION: FUNCTION [id number] 10:23:00 Test Item Value Reference Range Interpretation Comments [id number] Ted Lynch MD (BEAKER) (test code = (electronic 2622) signature) PLATELET COUNT AGG 275 K/CU MM 150-430 (BEAKER) (test code = 2656) ADP (BEAKER) (test code 68 % 62-100 = 4654) PLATELET RICH 297 k/cu mm 200-300 PLASMA(BEAKER) (test code = 2134) PLATELET FUNCTION SCREEN Normal aggregation INTERPRETATION (BEAKER) results with ADP. No (test code = 4655) evidence of platelet dysfunction or P2Y12 inhibitor effect. Platelet Function Screen results may be falsely low with platelet counts<75,000/cu mm.Platelet [id number] 09:01:00 Test Item Value Reference Range Interpretation Comments Platelets (test code = 160 150- 450 K/CU MM 777-3) BARRON (test code = BARRON) Pest Control Service Sales Agent ID - [id number] ID - [id number] ID - [id number] Lab Interpretation (test Normal code = 75806-6) [facility] HospitalPLATELET [id number] 09:01:00 Test Item Value Reference Range Interpretation Comments PLATELET COUNT (BEAKER) (test 160 K/CU MM 150-450 code = 756) Pest Control Service Sales Agent ID - [id number] ID - 6000Operator ID - [id number] 08:44:00 Test Item Value Reference Range Interpretation Comments PTT (test code = 45967-7) 75.3 22.5- 36.0 seconds H Lab Interpretation (test code = Abnormal 74498-7) [facility] HospitalAPTT2020-11-16 08:44:00 Test Item Value Reference Range Interpretation Comments PARTIAL THROMBOPLASTIN TIME 75.3 seconds 22.5-36.0 H (BEAKER) (test code = 760) [id number] 08:42:00 Test Item Value Reference Range Interpretation Comments Fibrinogen (test code = 3255-7) 427 mg/dl 225-434 Lab Interpretation (test code = Normal 43585-9) [facility] HospitalFIBRINOGEN2020-11-16 08:42:00 Test Item Value Reference Range Interpretation Comments FIBRINOGEN LEVEL (BEAKER) (test 427 mg/dl 225-434 code = 658) Prothromin time/[id number] 08:41:00 Test Item Value Reference Range Interpretation Comments Protime (test code = 14.9 11.9- 14.2 H 5902-2) seconds INR (test code = 1.20 <=5.90 6301-6) BARRON (test code = BARRON) Effective 11/20/2018: PT Reference Range ChangeNew: 11.9-14.2 Previous: 11.7-14.7 RECOMMENDED COUMADIN/WARFARIN INR THERAPY RANGESSTANDARD DOSE: 2.0-3.0 Includes: PROPHYLAXIS for venous thrombosis, systemic embolization; TREATMENT for venous thrombosis and/or pulmonary embolus.HIGH RISK: Target INR is 2.5-3.5 for patients wiht mechanical heart valves. Lab Interpretation Abnormal (test code = 51187-5) [facility] HospitalPROTHROMBIN TIME/[id number] 08:41:00 Test Item Value Reference Range Interpretation Comments PROTIME (BEAKER) (test code = 14.9 seconds 11.9-14.2 H 759) INR (BEAKER) (test code = 370) 1.20 <=5.90 Effective 11/20/2018: PT Reference Range ChangeNew: 11.9-14.2 Previous: 11.7- 14.7RECOMMENDED COUMADIN/WARFARIN INR THERAPY RANGESSTANDARD DOSE: 2.0-3.0 Includes: PROPHYLAXIS for venous thrombosis, systemic embolization; TREATMENT for venous thrombosis and/or pulmonary embolus.HIGH RISK: Target INR is2.5-3.5 for patients wiht mechanical heart valves.POCT-GLUCOSE [id number] 08:19:00 Test Item Value Reference Range Interpretation Comments POC-GLUCOSE METER 183 mg/dL 70-110 H : TESTED A T [facility] 6720 (BEAKER) (test code = [place], 1538) 84[address]: Pest Control Service Sales Agent/Techni josephine ID = [id number] for Ro mikaelaon, Sara Type and screen, [id number] 04:51:00 Test Item Value Reference Range Interpretation Comments ABO/RH AUTOMATED (BEAKER) (test A POSITIVE code = 2260) Ab Scrn (test code = 890-4) NEGATIVE [facility] [id number] 04:49:00 Test Item Value Reference Range Interpretation Comments SODIUM (BEAKER) 139 meq/L 136-145 (test code = 381) POTASSIUM (BEAKER) 4.0 meq/L 3.5-5.1 (test code = 379) CHLORIDE (BEAKER) 102 meq/L 98-107 (test code = 382) CO2 (BEAKER) (test 23 meq/L 22-29 code = 355) BLOOD UREA NITROGEN 12 mg/dL 7-21 (BEAKER) (test code = 354) CREATININE (BEAKER) 0.83 mg/dL 0.57-1.25 (test code = 358) GLUCOSE RANDOM 166 mg/dL 70-105 H (BEAKER) (test code = 652) CALCIUM (BEAKER) 7.5 mg/dL 8.4-10.2 L (test code = 697) EGFR (BEAKER) (test 91 mL/min/1.73 ESTIMA HARMONY GFR IS code = 1092) sq m NOT ACCURATE CREATININE CLEARANCE IN PREDICTING GLOMERULAR FILTRATION RATE . ESTIMATED GFR I S NOT APPLICABLE FOR DIALYSIS PATIEN TS. Pest Control Service Sales Agent ID - [id number] 04:44:00 Test Item Value Reference Range Interpretation Comments MAGNESIUM (BEAKER) (test code = 2.3 mg/dL 1.6-2.6 627) Pest Control Service Sales Agent ID - [id number] 04:44:00 Test Item Value Reference Range Interpretation Comments PHOSPHORUS (BEAKER) (test code = 2.8 mg/dL 2.3-4.7 604) Pest Control Service Sales Agent ID - EDASICALCIUM, [id number] 04:25:00 Test Item Value Reference Range Interpretation Comments CALCIUM IONIZED (BEAKER) (test 1.02 mmol/L 1.12-1.27 L code = 698) PH, BLOOD (BEAKER) (test code = 7.41 1810) Check serum Ionized Calcium level after 4 hours after IV Calcium replacement.Check serum Ionized Calcium level after 4 hours after IV Calcium replacement.CBC with platelet count + automated [id number] 04:23:00 Test Item Value Reference Range Interpretation Comments WBC (test code = 6690-2) 11.1 3.5- 10.5 K/L H RBC (test code = 789-8) 3.24 4.63- 6.08 M/L L MCHC (test code = 786-4) 35.1 32.3- 36.5 GM/DL L Hematocrit (test code = 4544-3) 28.8 % 40.1-51 L MCV (test code = 787-2) 88.9 fL 79-92.2 MCH (test code = 785-6) 31.2 pg 25.7-32.2 RDW (test code = 788-0) 13.9 % 11.6-14.4 Platelets (test code = 777-3) 131 150- 450 K/CU MM L MPV (test code = 70234-7) 9.5 fL 9.4-12.4 nRBC (test code = 413) 0 0- 0 /100 WBC % Neutros (test code = 429) 86 % % Lymphs (test code = 430) 7 % % Monos (test code = 431) 7 % % Eos (test code = 432) 0 % % Baso (test code = 437) 0 % # Neutros (test code = 670) 9.52 1.78- 5.38 K/L H # Lymphs (test code = 414) 0.72 1.32- 3.57 K/L L # Monos (test code = 415) 0.73 0.30- 0.82 K/L # Eos (test code = 416) 0.03 0.04- 0.54 K/L L # Baso (test code = 417) 0.04 0.01- 0.08 K/L Immature Granulocytes-Relative 1 % 0-1 (test code = 2801) Lab Interpretation (test code = Abnormal 95269-3) [facility] W/PLT COUNT & AUTO [id number] 04:23:00 Test Item Value Reference Range Interpretation Comments WHITE BLOOD CELL COUNT (BEAKER) 11.1 K/ L 3.5-10.5 H (test code = 775) RED BLOOD CELL COUNT (BEAKER) 3.24 M/ L 4.63-6.08 L (test code = 761) HEMOGLOBIN (BEAKER) (test code = 10.1 GM/DL 13.7-17.5 L 410) HEMATOCRIT (BEAKER) (test code = 28.8 % 40.1-51.0 L 411) MEAN CORPUSCULAR VOLUME (BEAKER) 88.9 fL 79.0-92.2 (test code = 753) MEAN CORPUSCULAR HEMOGLOBIN 31.2 pg 25.7-32.2 (BEAKER) (test code = 751) MEAN CORPUSCULAR HEMOGLOBIN CONC 35.1 GM/DL 32.3-36.5 (BEAKER) (test code = 752) RED CELL DISTRIBUTION WIDTH 13.9 % 11.6-14.4 (BEAKER) (test code = 412) PLATELET COUNT (BEAKER) (test 131 K/CU MM 150-450 L code = 756) MEAN PLATELET VOLUME (BEAKER) 9.5 fL 9.4-12.4 (test code = 754) NUCLEATED RED BLOOD CELLS 0 /100 WBC 0-0 (BEAKER) (test code = 413) NEUTROPHILS RELATIVE PERCENT 86 % (BEAKER) (test code = 429) LYMPHOCYTES RELATIVE PERCENT 7 % (BEAKER) (test code = 430) MONOCYTES RELATIVE PERCENT 7 % (BEAKER) (test code = 431) EOSINOPHILS RELATIVE PERCENT 0 % (BEAKER) (test code = 432) BASOPHILS RELATIVE PERCENT 0 % (BEAKER) (test code = 437) NEUTROPHILS ABSOLUTE COUNT 9.52 K/ L 1.78-5.38 H (BEAKER) (test code = 670) LYMPHOCYTES ABSOLUTE COUNT 0.72 K/ L 1.32-3.57 L (BEAKER) (test code = 414) MONOCYTES ABSOLUTE COUNT (BEAKER) 0.73 K/ L 0.30-0.82 (test code = 415) EOSINOPHILS ABSOLUTE COUNT 0.03 K/ L 0.04-0.54 L (BEAKER) (test code = 416) BASOPHILS ABSOLUTE COUNT (BEAKER) 0.04 K/ L 0.01-0.08 (test code = 417) IMMATURE GRANULOCYTES-RELATIVE 1 % 0-1 PERCENT (BEAKER) (test code = 2801) Blood gas, [id number] 04:22:00 Test Item Value Reference Range Interpretation Comments pH, Arterial (test code = 2744-1) 7.41 7.35-7.45 pCO2, Arterial (test code = 39 35- 45 mm Hg 2018-8) pO2, Arterial (test code = 2703-7) 183 80- 90 mm Hg H O2 Sat, Arterial (test code = 99.3 % 96-97 H 8-6) HCO3, Arterial (test code = 25 mmol/L 21-29 1959-4) Base Excess, Arterial (test code = 0.0 mmol/L -2-3 1925-7) Patient Temperature (test code = 36.8 8310-5) FIO2 (test code = 1819) 36 Lab Interpretation (test code = Abnormal 54974-0) [facility] [id number] 04:22:00 Test Item Value Reference Range Interpretation Comments PH ARTERIAL (BEAKER) (test code = 7.41 7.35-7.45 383) PCO2 ARTERIAL (BEAKER) (test code 39 mm Hg 35-45 = 384) PO2 ARTERIAL (BEAKER) (test code = 183 mm Hg 80-90 H 385) O2 SATURATION ARTERIAL (BEAKER) 99.3 % 96.0-97.0 H (test code = 386) HCO3 ARTERIAL (BEAKER) (test code 25 mmol/L 21-29 = 388) BASE EXCESS ARTERIAL (BEAKER) 0.0 mmol/L -2.0-3.0 (test code = 387) PATIENT TEMPERATURE (BEAKER) (test 36.8 code = 1818) FIO2 (BEAKER) (test code = 1819) 36.0 RAD, CHEST, 1 VIEW, NON [id number] 01:32:00Reason for exam:->s/p ACBShould this be performed at the bedside?->Yes [facility] : 1950 Sex: MFINAL REPORT Chest one view. Clinical history: s/p ACB Comparison: Chest radiograph 05/09/2020. Technique: A single frontal view of the chest was obtained. Findings: Therehas been interval removal of endotracheal and feeding tubes. Other support lines and tubes are in satisfactory positions.The patient is status post median sternotomy and CABG. There are airspace opacities in the left lung base which may represent atelectasis and/or pneumonia. A small left pleural effusion may be present. There is no pulmonary edema or pneumothorax.The cardiomediastinal contours are stable. Signed: Ja Hickey MDReport Verified Date/Time: 05/10/2020 01:32:03 [id number] 21:38:00 Test Item Value Reference Range Interpretation Comments MAGNESIUM (BEAKER) 2.5 mg/dL 1.6-2.6 Specimen slightly (test code = 627) hemolyzed [employer] Service Sales Agent ID - [id number] 21:38:00 Test Item Value Reference Range Interpretation Comments PHOSPHORUS (BEAKER) 3.1 mg/dL 2.3-4.7 Specimen slightly (test code = 604) hemolyzed P[employer] Service Sales Agent ID - EDASIBASIC METABOLIC [id number] 21:38:00 Test Item Value Reference Range Interpretation Comments SODIUM (BEAKER) 137 meq/L 136-145 (test code = 381) POTASSIUM (BEAKER) 4.2 meq/L 3.5-5.1 Specimen slightly (test code = 379) hemolyzed CHLORIDE (BEAKER) 101 meq/L 98-107 (test code = 382) CO2 (BEAKER) (test 26 meq/L 22-29 code = 355) BLOOD UREA NITROGEN 13 mg/dL 7-21 (BEAKER) (test code = 354) CREATININE (BEAKER) 0.83 mg/dL 0.57-1.25 Specimen slightly (test code = 358) hemolyzed GLUCOSE RANDOM 111 mg/dL 70-105 H (BEAKER) (test code = 652) CALCIUM (BEAKER) 7.6 mg/dL 8.4-10.2 L (test code = 697) EGFR (BEAKER) (test 91 mL/min/1.73 ESTIMA HARMONY GFR IS code = 1092) sq m NOT ACCURATE CREATININE CLEARANCE IN PREDICTING GLOMERULAR FILTRATION RATE . ESTIMATED GFR I S NOT APPLICABLE FOR DIALYSIS PATIEN TS. P[employer] Service Sales Agent ID - EDASIBLOOD GAS, [id number] 21:20:00 Test Item Value Reference Range Interpretation Comments PH ARTERIAL (BEAKER) 7.43 7.35-7.45 (test code = 383) PCO2 ARTERIAL (BEAKER) 43 mm Hg 35-45 (test code = 384) PO2 ARTERIAL (BEAKER) 143 mm Hg 80-90 H This i s a corrected (test code = 385) result. Pr evious result was 144 mm Hg on 05/09/2020 a t 2117 [employer] O2 SATURATION ARTERIAL 98.9 % 96.0-97.0 H (BEAKER) (test code = 386) HCO3 ARTERIAL (BEAKER) 28 mmol/L 21-29 (test code = 388) BASE EXCESS ARTERIAL 3.1 mmol/L -2.0-3.0 H (BEAKER) (test code = 387) PATIENT TEMPERATURE 36.8 This is a corrected (BEAKER) (test code = result . Previous 1817) result was 37.0 on 05/09/2020 at 2 117 [employer] FIO2 (BEAKER) (test 36.0 This is a corrected code = 1819) result. Previou s result was 100. 0 on 05/09/2020 at 2 117 [employer] HGB/HCT (H&H)-Stat [id number] 21:17:00 Test Item Value Reference Range Interpretation Comments Hemoglobin (test code = 786-4) 11.5 13.0- 16.8 GM/DL L Hematocrit (test code = 4544-3) 34.0 % 40-50 L Lab Interpretation (test code = Abnormal 40048-2) [facility] ([facility] - STAT [id number] 21:17:00 Test Item Value Reference Range Interpretation Comments HEMOGLOBIN (BEAKER) (test code = 11.5 GM/DL 13.0-16.8 L 410) HEMATOCRIT (BEAKER) (test code = 34.0 % 40.0-50.0 L 411) CALCIUM, [id number] 21:17:00 Test Item Value Reference Range Interpretation Comments CALCIUM IONIZED (BEAKER) (test 1.01 mmol/L 1.12-1.27 L code = 698) PH, BLOOD (BEAKER) (test code = 7.43 1810) Glucose-Stat [id number] 21:16:00 Test Item Value Reference Range Interpretation Comments Glucose (test code = 2345-7) 108 mg/dL 70-110 Lab Interpretation (test code = Normal 74294-0) [facility] [id number] 21:16:00 Test Item Value Reference Range Interpretation Comments Sodium (test code = 2951-2) 135 meq/L 136-145 L Lab Interpretation (test code = Abnormal 11384-2) [facility]assium-Stat [id number] 21:16:00 Test Item Value Reference Range Interpretation Comments Potassium (test code = 2823-3) 3.8 meq/L 3.6-5.5 Lab Interpretation (test code = Normal 50811-9) [facility]GLU[facility]SE-STAT [id number] 21:16:00 Test Item Value Reference Range Interpretation Comments GLUCOSE RANDOM (BEAKER) (test code 108 mg/dL 70-110 = 652) SODIUM NA-STAT [id number] 21:16:00 Test Item Value Reference Range Interpretation Comments SODIUM (BEAKER) (test code = 381) 135 meq/L 136-145 L POTASSIUM-STAT [id number] 21:16:00 Test Item Value Reference Range Interpretation Comments POTASSIUM (BEAKER) (test code = 3.8 meq/L 3.6-5.5 379) POCT-GLUCOSE [id number] 20:20:00 Test Item Value Reference Range Interpretation Comments POC-GLUCOSE METER 88 mg/dL 70-110 : TESTED A T [facility] 67 (BANNER) (test code = WAQAS [place] [facility], 1538) [address]: Pest Control Service Sales Agent/Techni josephine ID = [id number] for TORSTEN JUÁREZ BLOOD GAS, [id number] 19:23:00 Test Item Value Reference Range Interpretation Comments PH ARTERIAL (BEAKER) (test code = 7.54 7.35-7.45 H 383) PCO2 ARTERIAL (BEAKER) (test code 32 mm Hg 35-45 L = 384) PO2 ARTERIAL (BEAKER) (test code = 157 mm Hg 80-90 H 385) O2 SATURATION ARTERIAL (BEAKER) 99.3 % 96.0-97.0 H (test code = 386) HCO3 ARTERIAL (BEAKER) (test code 27 mmol/L 21-29 = 388) BASE EXCESS ARTERIAL (BEAKER) 4.0 mmol/L -2.0-3.0 H (test code = 387) PATIENT TEMPERATURE (BEAKER) (test 35.8 code = 1818) FIO2 (BEAKER) (test code = 1819) 40.0 POCT-GLUCOSE [id number] 18:59:00 Test Item Value Reference Range Interpretation Comments POC-GLUCOSE METER 134 mg/dL 70-110 H : Notified RN/MD: (BANNER) (test code = TESTED AT [facility] 6720 1538) [facility], [address]: Pest Control Service Sales Agent/Techni josephine ID = [id number] for STUART ACEVES POCT-GLUCOSE [id number] 16:41:00 Test Item Value Reference Range Interpretation Comments POC-GLUCOSE METER 211 mg/dL 70-110 H : TESTED A T [facility] 6720 (BEAKER) (test code = [place], 1538) [address]: Pest Control Service Sales Agent/Techni josephine ID = [id number] for STUART ACEVES BASIC METABOLIC [id number] 16:12:00 Test Item Value Reference Range Interpretation Comments SODIUM (BEAKER) 136 meq/L 136-145 (test code = 381) POTASSIUM (BEAKER) 3.5 meq/L 3.5-5.1 (test code = 379) CHLORIDE (BEAKER) 101 meq/L 98-107 (test code = 382) CO2 (BEAKER) (test 27 meq/L 22-29 code = 355) BLOOD UREA NITROGEN 13 mg/dL 7-21 (BEAKER) (test code = 354) CREATININE (BEAKER) 0.75 mg/dL 0.57-1.25 (test code = 358) GLUCOSE RANDOM 232 mg/dL 70-105 H (BEAKER) (test code = 652) CALCIUM (BEAKER) 7.8 mg/dL 8.4-10.2 L (test code = 697) EGFR (BEAKER) (test 103 mL/min/1.73 ESTIM ATED GFR IS code = 1092) sq m NOT ACCURATE CREATININE CLEARANCE IN PREDICTING GLOMERULAR FILTRATION RATE . ESTIMATED GFR I S NOT APPLICABLE FOR DIALYSIS PATIEN TS. Pest Control Service Sales Agent ID - FELICITASRAD, CHEST, 1 VIEW, NON [id number] 16:11:00while patient is intubated or has chest tubes.Reason for exam:->Status post CV SurgeryShould thisbe performed at the bedside?->Yes [facility] 1950 Sex: MFINAL REPORT AP view of the chest dated 05/09/2020 COMPARISON: 2019 CLINICAL INFORMATION: Status post CV Surgery Comment: Patient is status post sternotomy. Heart is normal in size. Subsegmental atelectasis is seen in the left lower lobe. The rest of the lungsare clear. Endotracheal tube, mediastinal tube, nasogastric tube, right IJ centimeters catheter, andright chest tube present. No pneumothorax is seen. Signed: My Patrickeport Verified Date/Time:05/09/2020 16:11:13 Reading Location: [facility] C013Y CT Body Reading Room [id number] 16:02:00 Test Item Value Reference Range Interpretation Comments MAGNESIUM (BEAKER) (test code = 1.7 mg/dL 1.6-2.6 627) P[employer] Service Sales Agent ID - [id number] 16:02:00 Test Item Value Reference Range Interpretation Comments PHOSPHORUS (BEAKER) (test code = 1.7 mg/dL 2.3-4.7 L 604) P[employer] Service Sales Agent ID - EDASILactic Acid, [id number] 15:57:00 Test Item Value Reference Range Interpretation Comments Lactate, Art (test 0.7 mmol/L 0.5-2.2 Specimen code = 2874) slightly hemolyzed BARRON (test code = BARRON) P[employer] Control Service Sales Agent ID - EDASI Lab Interpretation Normal (test code = 24771-2) [facility] HospitalAPTT[facility] 15:57:00 Test Item Value Reference Range Interpretation Comments PARTIAL THROMBOPLASTIN TIME 67.0 seconds 22.5-36.0 H (BEAKER) (test code = 760) LACTIC ACID, [id number] 15:57:00 Test Item Value Reference Range Interpretation Comments LACTATE BLOOD 0.7 mmol/L 0.5-2.2 Specimen sligh tly ARTERIAL (2) (BEAKER) hemoly zed (test code = 2874) P[employer] Service Sales Agent ID - EDASIPROTHROMBIN TIME/[id number] 15:56:00 Test Item Value Reference Range Interpretation Comments PROTIME (BEAKER) (test code = 17.1 seconds 11.9-14.2 H 759) INR (BEAKER) (test code = 370) 1.43 <=5.90 Effective 11/20/2018: PT Reference Range ChangeNew: 11.9-14.2 Previous: 11.7- 14.7RECOMMENDED COUMADIN/WARFARIN INR THERAPY RANGESSTANDARD DOSE: 2.0-3.0 Includes: PROPHYLAXIS for venous thrombosis, systemic embolization; TREATMENT for venous thrombosis and/or pulmonary embolus.HIGH RISK: Target INR is2.5-3.5 for patients wiht mechanical heart valves.CBC W/PLT COUNT & AUTO [id number] 15:42:00 Test Item Value Reference Range Interpretation Comments WHITE BLOOD CELL COUNT (BEAKER) 10.8 K/ L 3.5-10.5 H (test code = 775) RED BLOOD CELL COUNT (BEAKER) 3.38 M/ L 4.63-6.08 L (test code = 761) HEMOGLOBIN (BEAKER) (test code = 10.3 GM/DL 13.7-17.5 L 410) HEMATOCRIT (BEAKER) (test code = 30.0 % 40.1-51.0 L 411) MEAN CORPUSCULAR VOLUME (BEAKER) 88.8 fL 79.0-92.2 (test code = 753) MEAN CORPUSCULAR HEMOGLOBIN 30.5 pg 25.7-32.2 (BEAKER) (test code = 751) MEAN CORPUSCULAR HEMOGLOBIN CONC 34.3 GM/DL 32.3-36.5 (BEAKER) (test code = 752) RED CELL DISTRIBUTION WIDTH 12.9 % 11.6-14.4 (BEAKER) (test code = 412) PLATELET COUNT (BEAKER) (test 146 K/CU MM 150-450 L code = 756) MEAN PLATELET VOLUME (BEAKER) 8.7 fL 9.4-12.4 L (test code = 754) NUCLEATED RED BLOOD CELLS 0 /100 WBC 0-0 (BEAKER) (test code = 413) NEUTROPHILS RELATIVE PERCENT 87 % (BEAKER) (test code = 429) LYMPHOCYTES RELATIVE PERCENT 6 % (BEAKER) (test code = 430) MONOCYTES RELATIVE PERCENT 4 % (BEAKER) (test code = 431) EOSINOPHILS RELATIVE PERCENT 2 % (BEAKER) (test code = 432) BASOPHILS RELATIVE PERCENT 0 % (BEAKER) (test code = 437) NEUTROPHILS ABSOLUTE COUNT 9.42 K/ L 1.78-5.38 H (BEAKER) (test code = 670) LYMPHOCYTES ABSOLUTE COUNT 0.69 K/ L 1.32-3.57 L (BEAKER) (test code = 414) MONOCYTES ABSOLUTE COUNT (BEAKER) 0.38 K/ L 0.30-0.82 (test code = 415) EOSINOPHILS ABSOLUTE COUNT 0.18 K/ L 0.04-0.54 (BEAKER) (test code = 416) BASOPHILS ABSOLUTE COUNT (BEAKER) 0.03 K/ L 0.01-0.08 (test code = 417) IMMATURE GRANULOCYTES-RELATIVE 1 % 0-1 PERCENT (BEAKER) (test code = 2801) BLOOD GAS, [id number] 15:38:00 Test Item Value Reference Range Interpretation Comments PH ARTERIAL (BEAKER) (test code = 7.59 7.35-7.45 H 383) PCO2 ARTERIAL (BEAKER) (test code 26 mm Hg 35-45 L = 384) PO2 ARTERIAL (BEAKER) (test code = 84 mm Hg 80-90 385) O2 SATURATION ARTERIAL (BEAKER) 98.2 % 96.0-97.0 H (test code = 386) HCO3 ARTERIAL (BEAKER) (test code 25 mmol/L 21-29 = 388) BASE EXCESS ARTERIAL (BEAKER) 3.4 mmol/L -2.0-3.0 H (test code = 387) PATIENT TEMPERATURE (BEAKER) (test 34.1 code = 1818) FIO2 (BEAKER) (test code = 1819) 50.0 CALCIUM, [id number] 15:38:00 Test Item Value Reference Range Interpretation Comments CALCIUM IONIZED (BEAKER) (test 1.04 mmol/L 1.12-1.27 L code = 698) PH, BLOOD (BEAKER) (test code = 7.59 1810) Oxygen saturation, [id number] 15:37:00 Test Item Value Reference Range Interpretation Comments O2 Saturation (Measured) (test code = 64.4 % 66945-5) [facility] HospitalOXYGEN SATURATION, [id number] 15:37:00 Test Item Value Reference Range Interpretation Comments O2 SATURATION (MEASURED) (BEAKER) 64.4 % (test code = 1455) CBC W/PLT COUNT & AUTO [id number] 15:33:00 Test Item Value Reference Range Interpretation Comments WHITE BLOOD CELL COUNT (BEAKER) 9.2 K/ L 3.5-10.5 (test code = 775) RED BLOOD CELL COUNT (BEAKER) 2.68 M/ L 4.63-6.08 L (test code = 761) HEMOGLOBIN (BEAKER) (test code = 8.5 GM/DL 13.7-17.5 L 410) HEMATOCRIT (BEAKER) (test code = 24.3 % 40.1-51.0 L 411) MEAN CORPUSCULAR VOLUME (BEAKER) 90.7 fL 79.0-92.2 (test code = 753) MEAN CORPUSCULAR HEMOGLOBIN 31.7 pg 25.7-32.2 (BEAKER) (test code = 751) MEAN CORPUSCULAR HEMOGLOBIN CONC 35.0 GM/DL 32.3-36.5 (BEAKER) (test code = 752) RED CELL DISTRIBUTION WIDTH 13.1 % 11.6-14.4 (BEAKER) (test code = 412) PLATELET COUNT (BEAKER) (test 100 K/CU MM 150-450 L code = 756) MEAN PLATELET VOLUME (BEAKER) 9.4 fL 9.4-12.4 (test code = 754) NUCLEATED RED BLOOD CELLS 0 /100 WBC 0-0 (BEAKER) (test code = 413) NEUTROPHILS RELATIVE PERCENT 87 % (BEAKER) (test code = 429) LYMPHOCYTES RELATIVE PERCENT 8 % (BEAKER) (test code = 430) MONOCYTES RELATIVE PERCENT 2 % (BEAKER) (test code = 431) EOSINOPHILS RELATIVE PERCENT 2 % (BEAKER) (test code = 432) BASOPHILS RELATIVE PERCENT 0 % (BEAKER) (test code = 437) NEUTROPHILS ABSOLUTE COUNT 7.99 K/ L 1.78-5.38 H (BEAKER) (test code = 670) LYMPHOCYTES ABSOLUTE COUNT 0.69 K/ L 1.32-3.57 L (BEAKER) (test code = 414) MONOCYTES ABSOLUTE COUNT (BEAKER) 0.21 K/ L 0.30-0.82 L (test code = 415) EOSINOPHILS ABSOLUTE COUNT 0.14 K/ L 0.04-0.54 (BEAKER) (test code = 416) BASOPHILS ABSOLUTE COUNT (BEAKER) 0.03 K/ L 0.01-0.08 (test code = 417) IMMATURE GRANULOCYTES-RELATIVE 1 % 0-1 PERCENT (BEAKER) (test code = 2801) [id number] 14:50:00 Test Item Value Reference Range Interpretation Comments MAGNESIUM (BEAKER) (test code = 1.9 mg/dL 1.6-2.6 627) [employer] Service Sales Agent ID - [id number] 14:50:00 Test Item Value Reference Range Interpretation Comments PHOSPHORUS (BEAKER) (test code = 2.4 mg/dL 2.3-4.7 604) Pest Control Service Sales Agent ID - EDASIPOC ACTIVATED CLOTTING [id number] 14:42:00 Test Item Value Reference Range Interpretation Comments Activated Clotting Time 125 sec : 74 -137 seconds, (test code = 441) Baseline: TESTED AT [address], [facility] 30: Pest Control Service Sales Agent/Techni josephine ID = [id number] for LORI, EDWAR N [facility] HospitalPOCT-[id number] 14:42:00 Test Item Value Reference Range Interpretation Comments ACTIVATED CLOTTING TIME 125 sec : 74 -137 seconds, (BEAKER) (test code = Baseli ne: TESTED AT 441) [address], [address]: Pest Control Service Sales Agent/Techni josephine ID = [id number] for LORI, EDWAR N [id number] 14:42:00 Test Item Value Reference Range Interpretation Comments ACTIVATED CLOTTING TIME 466 sec : 74 -137 seconds, (BEAKER) (test code = Baseli ne: TESTED AT 441) [address], [address]: P[employer] Service Sales Agent/Techni josephine ID = [id number] for YOUNGMARY ANN, EDWAR N [id number] 14:42:00 Test Item Value Reference Range Interpretation Comments ACTIVATED CLOTTING TIME 593 sec : 74 -137 seconds, (BEAKER) (test code = Baseli ne: TESTED AT 441) [address], [address]: P[employer] Service Sales Agent/Techni jsoephine ID = [id number] for YOUNGMARY ANN, EDWAR N [id number] 14:42:00 Test Item Value Reference Range Interpretation Comments ACTIVATED CLOTTING TIME 577 sec : 74 -137 seconds, (BEAKER) (test code = Baseli ne: TESTED AT 441) [facility] [address] [facility], [address]: Pest Control Service Sales Agent/Techni josephine ID = [id number] for EDWAR SANDOVAL [id number] 14:41:00 Test Item Value Reference Range Interpretation Comments ACTIVATED CLOTTING TIME 538 sec : 74 -137 seconds, (BEAKER) (test code = Ember ne: TESTED AT 441) [facility] [address] [facility], [address]: Pest Control Service Sales Agent/Techni josephine ID = [id number] for EDWAR SANDOVAL [id number] 14:02:00 Test Item Value Reference Range Interpretation Comments Protime (test code = 19.8 11.9- 14.2 H 5902-2) seconds INR (test code = 1.73 <=5.90 6301-6) PTT (test code = 35.8 22.5- 36.0 65770-6) seconds BARRON (test code = BARRON) Effective 11/20/2018: PT Reference Range ChangeNew: 11.9-14.2 Previous: 11.7-14.7 RECOMMENDED COUMADIN/WARFARIN INR THERAPY RANGESSTANDARD DOSE: 2.0-3.0 Includes: PROPHYLAXIS for venous thrombosis, systemic embolization; TREATMENT for venous thrombosis and/or pulmonary embolus.HIGH RISK: Target INR is 2.5-3.5 for patients wiht mechanical heart valves. Lab Interpretation Abnormal (test code = 20056-2) [facility] [id number] 14:02:00 Test Item Value Reference Range Interpretation Comments FIBRINOGEN LEVEL (BEAKER) (test 317 mg/dl 225-434 code = 658) [id number] 14:02:00 Test Item Value Reference Range Interpretation Comments PROTIME (BEAKER) (test code = 19.8 seconds 11.9-14.2 H 759) INR (BEAKER) (test code = 370) 1.73 <=5.90 PARTIAL THROMBOPLASTIN TIME 35.8 seconds 22.5-36.0 (BEAKER) (test code = 760) Effective 11/20/2018: PT Reference Range ChangeNew: 11.9-14.2 Previous: 11.7- 14.7RECOMMENDED COUMADIN/WARFARIN INR THERAPY RANGESSTANDARD DOSE: 2.0-3.0 Includes: PROPHYLAXIS for venous thrombosis, systemic embolization; TREATMENT for venous thrombosis and/or pulmonary embolus.HIGH RISK: Target INR is2.5-3.5 for patients wiht mechanical heart valves.PLATELET [id number] 13:59:00 Test Item Value Reference Range Interpretation Comments PLATELET COUNT (BEAKER) (test code 94 K/CU MM 150-450 L = 756) P[employer] Service Sales Agent ID - [id number] GAS, [id number] 13:47:00 Test Item Value Reference Range Interpretation Comments PH ARTERIAL (BEAKER) (test code = 7.56 7.35-7.45 H 383) PCO2 ARTERIAL (BEAKER) (test code 28 mm Hg 35-45 L = 384) PO2 ARTERIAL (BEAKER) (test code = 291 mm Hg 80-90 H 385) O2 SATURATION ARTERIAL (BEAKER) 99.8 % 96.0-97.0 H (test code = 386) HCO3 ARTERIAL (BEAKER) (test code 25 mmol/L 21-29 = 388) BASE EXCESS ARTERIAL (BEAKER) 2.3 mmol/L -2.0-3.0 (test code = 387) PATIENT TEMPERATURE (BEAKER) (test 35.3 code = 1818) FIO2 (BEAKER) (test code = 1819) 100.0 SODIUM NA-STAT [id number] 13:47:00 Test Item Value Reference Range Interpretation Comments SODIUM (BEAKER) (test code = 381) 131 meq/L 136-145 L GLUCOSE-STAT [id number] 13:47:00 Test Item Value Reference Range Interpretation Comments GLUCOSE RANDOM (BEAKER) (test code 258 mg/dL 70-110 H = 652) HGB/HCT (H&H) - STAT [id number] 13:47:00 Test Item Value Reference Range Interpretation Comments HEMOGLOBIN (BEAKER) (test code = 8.8 GM/DL 13.0-16.8 L 410) HEMATOCRIT (BEAKER) (test code = 26.0 % 40.0-50.0 L 411) POTASSIUM-STAT [id number] 13:46:00 Test Item Value Reference Range Interpretation Comments POTASSIUM (BEAKER) (test code = 4.3 meq/L 3.6-5.5 379) POTASSIUM-STAT [id number] 13:17:00 Test Item Value Reference Range Interpretation Comments POTASSIUM (BEAKER) (test code = 4.7 meq/L 3.6-5.5 379) BLOOD GAS, [id number] 13:17:00 Test Item Value Reference Range Interpretation Comments PH ARTERIAL (BEAKER) (test code = 7.46 7.35-7.45 H 383) PCO2 ARTERIAL (BEAKER) (test code 37 mm Hg 35-45 = 384) PO2 ARTERIAL (BEAKER) (test code = 312 mm Hg 80-90 H 385) O2 SATURATION ARTERIAL (BEAKER) 99.7 % 96.0-97.0 H (test code = 386) HCO3 ARTERIAL (BEAKER) (test code 26 mmol/L 21-29 = 388) BASE EXCESS ARTERIAL (BEAKER) 2.1 mmol/L -2.0-3.0 (test code = 387) PATIENT TEMPERATURE (BEAKER) (test 36.1 code = 1818) FIO2 (BEAKER) (test code = 1819) 60.0 SODIUM NA-STAT [id number] 13:17:00 Test Item Value Reference Range Interpretation Comments SODIUM (BEAKER) (test code = 381) 132 meq/L 136-145 L GLUCOSE-STAT [id number] 13:17:00 Test Item Value Reference Range Interpretation Comments GLUCOSE RANDOM (BEAKER) (test code 266 mg/dL 70-110 H = 652) HGB/HCT (H&H) - STAT [id number] 13:17:00 Test Item Value Reference Range Interpretation Comments HEMOGLOBIN (BEAKER) (test code = 9.1 GM/DL 13.0-16.8 L 410) HEMATOCRIT (BEAKER) (test code = 27.0 % 40.0-50.0 L 411) GLUCOSE-STAT [id number] 12:55:00 Test Item Value Reference Range Interpretation Comments GLUCOSE RANDOM (BEAKER) (test code 266 mg/dL 70-110 H = 652) SODIUM NA-STAT [id number] 12:55:00 Test Item Value Reference Range Interpretation Comments SODIUM (BEAKER) (test code = 381) 127 meq/L 136-145 L HGB/HCT (H&H) - STAT [id number] 12:55:00 Test Item Value Reference Range Interpretation Comments HEMOGLOBIN (BEAKER) (test code = 9.2 GM/DL 13.0-16.8 L 410) HEMATOCRIT (BEAKER) (test code = 27.0 % 40.0-50.0 L 411) BLOOD GAS, [id number] 12:55:00 Test Item Value Reference Range Interpretation Comments PH ARTERIAL (BEAKER) (test code = 7.51 7.35-7.45 H 383) PCO2 ARTERIAL (BEAKER) (test code 32 mm Hg 35-45 L = 384) PO2 ARTERIAL (BEAKER) (test code = 243 mm Hg 80-90 H 385) O2 SATURATION ARTERIAL (BEAKER) 99.6 % 96.0-97.0 H (test code = 386) HCO3 ARTERIAL (BEAKER) (test code 26 mmol/L 21-29 = 388) BASE EXCESS ARTERIAL (BEAKER) 1.5 mmol/L -2.0-3.0 (test code = 387) PATIENT TEMPERATURE (BEAKER) (test 31.8 code = 1818) FIO2 (BEAKER) (test code = 1819) 50.0 POTASSIUM-STAT [id number] 12:54:00 Test Item Value Reference Range Interpretation Comments POTASSIUM (BEAKER) (test code = 5.2 meq/L 3.6-5.5 379) Blood gas, [id number] 12:14:00 Test Item Value Reference Range Interpretation Comments pH, Blaze (test code = 2746-6) 7.33 7.32-7.42 pCO2, Blaze (test code = 755) 45 41- 51 mm Hg pO2, Blaze (test code = 2705-2) 48 25- 40 mm Hg H O2 Sat, Blaze (test code = 2711-0) 88.9 % 40-70 H HCO3, Blaze (test code = 34260-5) 24 mmol/L 21-29 Base Excess, Blaze (test code = -2.6 mmol/L -2-3 L 1927-3) Patient Temperature (test code = 32.9 8310-5) FIO2 (test code = 1819) 60 Lab Interpretation (test code = Abnormal 44340-0) [id number] 12:14:00 Test Item Value Reference Range Interpretation Comments PH VENOUS (BEAKER) (test code = 7.33 7.32-7.42 701) PCO2 VENOUS (BEAKER) (test code = 45 mm Hg 41-51 755) PO2 VENOUS (BEAKER) (test code = 48 mm Hg 25-40 H 702) O2 SATURATION VENOUS (BEAKER) 88.9 % 40.0-70.0 H (test code = 703) HCO3 VENOUS (BEAKER) (test code = 24 mmol/L 21-29 705) BASE EXCESS VENOUS (BEAKER) (test -2.6 mmol/L -2.0-3.0 L code = 704) PATIENT TEMPERATURE (BEAKER) 32.9 (test code = 1818) FIO2 (BEAKER) (test code = 1819) 60.0 BLOOD GAS, [id number] 12:14:00 Test Item Value Reference Range Interpretation Comments PH ARTERIAL (BEAKER) (test code = 7.33 7.35-7.45 L 383) PCO2 ARTERIAL (BEAKER) (test code 42 mm Hg 35-45 = 384) PO2 ARTERIAL (BEAKER) (test code 393 mm Hg 80-90 H = 385) O2 SATURATION ARTERIAL (BEAKER) 99.8 % 96.0-97.0 H (test code = 386) HCO3 ARTERIAL (BEAKER) (test code 23 mmol/L 21-29 = 388) BASE EXCESS ARTERIAL (BEAKER) -3.7 mmol/L -2.0-3.0 L (test code = 387) PATIENT TEMPERATURE (BEAKER) 32.9 (test code = 1818) FIO2 (BEAKER) (test code = 1819) 60.0 SODIUM NA-STAT [id number] 12:14:00 Test Item Value Reference Range Interpretation Comments SODIUM (BEAKER) (test code = 381) 131 meq/L 136-145 L GLUCOSE-STAT [id number] 12:14:00 Test Item Value Reference Range Interpretation Comments GLUCOSE RANDOM (BEAKER) (test code 257 mg/dL 70-110 H = 652) HGB/HCT (H&H) - STAT [id number] 12:14:00 Test Item Value Reference Range Interpretation Comments HEMOGLOBIN (BEAKER) (test code = 8.0 GM/DL 13.0-16.8 L 410) HEMATOCRIT (BEAKER) (test code = 24.0 % 40.0-50.0 L 411) POTASSIUM-STAT [id number] 12:13:00 Test Item Value Reference Range Interpretation Comments POTASSIUM (BEAKER) (test code = 4.7 meq/L 3.6-5.5 379) BLOOD GAS, [id number] 10:48:00 Test Item Value Reference Range Interpretation Comments PH ARTERIAL (BEAKER) (test code = 7.49 7.35-7.45 H 383) PCO2 ARTERIAL (BEAKER) (test code 35 mm Hg 35-45 = 384) PO2 ARTERIAL (BEAKER) (test code = 374 mm Hg 80-90 H 385) O2 SATURATION ARTERIAL (BEAKER) 99.8 % 96.0-97.0 H (test code = 386) HCO3 ARTERIAL (BEAKER) (test code 27 mmol/L 21-29 = 388) BASE EXCESS ARTERIAL (BEAKER) 2.6 mmol/L -2.0-3.0 (test code = 387) PATIENT TEMPERATURE (BEAKER) (test 35.4 code = 1818) FIO2 (BEAKER) (test code = 1819) 100.0 SODIUM NA-STAT [id number] 10:48:00 Test Item Value Reference Range Interpretation Comments SODIUM (BEAKER) (test code = 381) 132 meq/L 136-145 L GLUCOSE-STAT [id number] 10:48:00 Test Item Value Reference Range Interpretation Comments GLUCOSE RANDOM (BEAKER) (test code 203 mg/dL 70-110 H = 652) HGB/HCT (H&H) - STAT [id number] 10:48:00 Test Item Value Reference Range Interpretation Comments HEMOGLOBIN (BEAKER) (test code = 9.0 GM/DL 13.0-16.8 L 410) HEMATOCRIT (BEAKER) (test code = 26.0 % 40.0-50.0 L 411) POTASSIUM-STAT [id number] 10:47:00 Test Item Value Reference Range Interpretation Comments POTASSIUM (BEAKER) (test code = 3.5 meq/L 3.6-5.5 L 379) CBC W/PLT COUNT & AUTO [id number] 08:57:00 Test Item Value Reference Range Interpretation Comments WHITE BLOOD CELL COUNT (BEAKER) 5.3 K/ L 3.5-10.5 (test code = 775) RED BLOOD CELL COUNT (BEAKER) 3.00 M/ L 4.63-6.08 L (test code = 761) HEMOGLOBIN (BEAKER) (test code = 9.1 GM/DL 13.7-17.5 L 410) HEMATOCRIT (BEAKER) (test code = 27.3 % 40.1-51.0 L 411) MEAN CORPUSCULAR VOLUME (BEAKER) 91.0 fL 79.0-92.2 (test code = 753) MEAN CORPUSCULAR HEMOGLOBIN 30.3 pg 25.7-32.2 (BEAKER) (test code = 751) MEAN CORPUSCULAR HEMOGLOBIN CONC 33.3 GM/DL 32.3-36.5 (BEAKER) (test code = 752) RED CELL DISTRIBUTION WIDTH 13.2 % 11.6-14.4 (BEAKER) (test code = 412) PLATELET COUNT (BEAKER) (test 275 K/CU MM 150-450 code = 756) MEAN PLATELET VOLUME (BEAKER) 9.3 fL 9.4-12.4 L (test code = 754) NUCLEATED RED BLOOD CELLS 0 /100 WBC 0-0 (BEAKER) (test code = 413) NEUTROPHILS RELATIVE PERCENT 67 % (BEAKER) (test code = 429) LYMPHOCYTES RELATIVE PERCENT 18 % (BEAKER) (test code = 430) MONOCYTES RELATIVE PERCENT 9 % (BEAKER) (test code = 431) EOSINOPHILS RELATIVE PERCENT 5 % (BEAKER) (test code = 432) BASOPHILS RELATIVE PERCENT 1 % (BEAKER) (test code = 437) NEUTROPHILS ABSOLUTE COUNT 3.56 K/ L 1.78-5.38 (BEAKER) (test code = 670) LYMPHOCYTES ABSOLUTE COUNT 0.95 K/ L 1.32-3.57 L (BEAKER) (test code = 414) MONOCYTES ABSOLUTE COUNT (BEAKER) 0.49 K/ L 0.30-0.82 (test code = 415) EOSINOPHILS ABSOLUTE COUNT 0.26 K/ L 0.04-0.54 (BEAKER) (test code = 416) BASOPHILS ABSOLUTE COUNT (BEAKER) 0.04 K/ L 0.01-0.08 (test code = 417) IMMATURE GRANULOCYTES-RELATIVE 1 % 0-1 PERCENT (BEAKER) (test code = 2801) BASIC METABOLIC [id number] 08:52:00 Test Item Value Reference Range Interpretation Comments SODIUM (BEAKER) 133 meq/L 136-145 L (test code = 381) POTASSIUM (BEAKER) 4.0 meq/L 3.5-5.1 (test code = 379) CHLORIDE (BEAKER) 95 meq/L 98-107 L (test code = 382) CO2 (BEAKER) (test 27 meq/L 22-29 code = 355) BLOOD UREA NITROGEN 12 mg/dL 7-21 (BEAKER) (test code = 354) CREATININE (BEAKER) 1.03 mg/dL 0.57-1.25 (test code = 358) GLUCOSE RANDOM 219 mg/dL 70-105 H (BEAKER) (test code = 652) CALCIUM (BEAKER) 9.0 mg/dL 8.4-10.2 (test code = 697) EGFR (BEAKER) (test 71 mL/min/1.73 ESTIMA HARMONY GFR IS code = 1092) sq m NOT ACCURATE CREATININE CLEARANCE IN PREDICTING GLOMERULAR FILTRATION RATE . ESTIMATED GFR I S NOT APPLICABLE FOR DIALYSIS PATIEN TS. [employer] Service Sales Agent ID - EDASIPOCT-GLUCOSE [id number] 07:58:00 Test Item Value Reference Range Interpretation Comments POC-GLUCOSE METER 230 mg/dL 70-110 H : TESTED A T [facility] (BEAKER) (test code = [place], 1538) [address]: P[employer] Service Sales Agent/Techni josephine ID = [id number] for OR JOSE MANUEL VELASCO PLATELET AGGREGATION: FUNCTION [id number] 06:17:00 Test Item Value Reference Range Interpretation Comments [id number] Nadege Biswas MD (BEAKER) (test code = (electronic 2622) signature) PLATELET COUNT AGG 202 K/CU MM 150-450 (BEAKER) (test code = 0568) ADP (BEAKER) (test code 63 % 62-100 = 6520) PLATELET RICH 271 k/cu mm 200-300 PLASMA(BEAKER) (test code = 0702) PLATELET FUNCTION SCREEN Normal aggregation INTERPRETATION (BEAKER) results with ADP. No (test code = 8574) evidence of platelet dysfunction or P2Y12 inhibitor effect. Platelet Function Screen results may be falsely low with platelet counts<75,000/cu mm.P[employer] Control Service Sales Agent ID- [id number]-GLUCOSE [id number] 21:26:00 Test Item Value Reference Range Interpretation Comments POC-GLUCOSE METER 270 mg/dL 70-110 H : TESTED A T [facility] 6720 (BEAKER) (test code = [place], 1538) [address]: P[employer] Service Sales Agent/Techni josephine ID = [id number] for Re yes, Sairy POCT-GLUCOSE [id number] 16:06:00 Test Item Value Reference Range Interpretation Comments POC-GLUCOSE METER 253 mg/dL 70-110 H : TESTED A T [facility] 6720 (BEAKER) (test code = [place], 1538) [address]: P[employer] Service Sales Agent/Techni josephine ID = [id number] for Palak, Lindsay POCT-GLUCOSE [id number] 12:24:00 Test Item Value Reference Range Interpretation Comments POC-GLUCOSE METER 183 mg/dL 70-110 H : TESTED A T [facility] 6720 (BEAKER) (test code = [place], 1538) [address]: P[employer] Service Sales Agent/Techni josephine ID = [id number] for Palak, Lindsay BASIC METABOLIC [id number] 12:17:00 Test Item Value Reference Range Interpretation Comments SODIUM (BEAKER) 135 meq/L 136-145 L (test code = 381) POTASSIUM (BEAKER) 4.0 meq/L 3.5-5.1 (test code = 379) CHLORIDE (BEAKER) 95 meq/L 98-107 L (test code = 382) CO2 (BEAKER) (test 31 meq/L 22-29 H code = 355) BLOOD UREA NITROGEN 10 mg/dL 7-21 (BEAKER) (test code = 354) CREATININE (BEAKER) 1.07 mg/dL 0.57-1.25 (test code = 358) GLUCOSE RANDOM 203 mg/dL 70-105 H (BEAKER) (test code = 652) CALCIUM (BEAKER) 9.3 mg/dL 8.4-10.2 (test code = 697) EGFR (BEAKER) (test 68 mL/min/1.73 ESTIMA HARMONY GFR IS code = 1092) sq m NOT ACCURATE CREATININE CLEARANCE IN PREDICTING GLOMERULAR FILTRATION RATE . ESTIMATED GFR I S NOT APPLICABLE FOR DIALYSIS PATIEN TS. P[employer] Service Sales Agent ID - DAVID FCBC W/PLT COUNT & AUTO [id number] 11:55:00 Test Item Value Reference Range Interpretation Comments WHITE BLOOD CELL COUNT (BEAKER) 4.9 K/ L 3.5-10.5 (test code = 775) RED BLOOD CELL COUNT (BEAKER) 2.80 M/ L 4.63-6.08 L (test code = 761) HEMOGLOBIN (BEAKER) (test code = 8.5 GM/DL 13.7-17.5 L 410) HEMATOCRIT (BEAKER) (test code = 25.9 % 40.1-51.0 L 411) MEAN CORPUSCULAR VOLUME (BEAKER) 92.5 fL 79.0-92.2 H (test code = 753) MEAN CORPUSCULAR HEMOGLOBIN 30.4 pg 25.7-32.2 (BEAKER) (test code = 751) MEAN CORPUSCULAR HEMOGLOBIN CONC 32.8 GM/DL 32.3-36.5 (BEAKER) (test code = 752) RED CELL DISTRIBUTION WIDTH 12.9 % 11.6-14.4 (BEAKER) (test code = 412) PLATELET COUNT (BEAKER) (test 204 K/CU MM 150-450 code = 756) MEAN PLATELET VOLUME (BEAKER) 9.2 fL 9.4-12.4 L (test code = 754) NUCLEATED RED BLOOD CELLS 0 /100 WBC 0-0 (BEAKER) (test code = 413) NEUTROPHILS RELATIVE PERCENT 66 % (BEAKER) (test code = 429) LYMPHOCYTES RELATIVE PERCENT 17 % (BEAKER) (test code = 430) MONOCYTES RELATIVE PERCENT 11 % (BEAKER) (test code = 431) EOSINOPHILS RELATIVE PERCENT 6 % (BEAKER) (test code = 432) BASOPHILS RELATIVE PERCENT 0 % (BEAKER) (test code = 437) NEUTROPHILS ABSOLUTE COUNT 3.21 K/ L 1.78-5.38 (BEAKER) (test code = 670) LYMPHOCYTES ABSOLUTE COUNT 0.82 K/ L 1.32-3.57 L (BEAKER) (test code = 414) MONOCYTES ABSOLUTE COUNT (BEAKER) 0.53 K/ L 0.30-0.82 (test code = 415) EOSINOPHILS ABSOLUTE COUNT 0.27 K/ L 0.04-0.54 (BEAKER) (test code = 416) BASOPHILS ABSOLUTE COUNT (BEAKER) 0.02 K/ L 0.01-0.08 (test code = 417) IMMATURE GRANULOCYTES-RELATIVE 1 % 0-1 PERCENT (BEAKER) (test code = 2801) Hemoglobin [id number] 08:36:00 Test Item Value Reference Range Interpretation Comments Hemoglobin A1C (test code = 4548-4) 13.8 % 4.3-6.1 H Lab Interpretation (test code = Abnormal 44900-3) [facility] [id number] 08:36:00 Test Item Value Reference Range Interpretation Comments HEMOGLOBIN A1C (BEAKER) (test code = 13.8 % 4.3-6.1 H 368) POCT-GLUCOSE [id number] 08:24:00 Test Item Value Reference Range Interpretation Comments POC-GLUCOSE METER 176 mg/dL 70-110 H : TESTED A T [facility] 6720 (BEAKER) (test code = [place], 1538) [address]: P[employer] Service Sales Agent/Techni josephine ID = [id number] for Palak, Lindsay POCT-GLUCOSE [id number] 21:13:00 Test Item Value Reference Range Interpretation Comments POC-GLUCOSE METER 300 mg/dL 70-110 H : TESTED A T [facility] 6720 (BEAKER) (test code = [place], 1538) [address]: P[employer] Control Service Sales Agent/Techni josephine ID = [id number] for Re yes, Sairy POCT-GLUCOSE [id number] 17:34:00 Test Item Value Reference Range Interpretation Comments POC-GLUCOSE METER 279 mg/dL 70-110 H : TESTED A T [facility] 6720 (BEAKER) (test code = [place], 1538) [address]: P[employer] Service Sales Agent/Techni josephine ID = [id number] for OR BEATRIZNabeel, JOSE MANUEL [id number] 16:35:00 Test Item Value Reference Range Interpretation Comments PARTIAL THROMBOPLASTIN TIME 30.4 seconds 22.5-36.0 (BEAKER) (test code = 760) PROTHROMBIN [id number] 16:34:00 Test Item Value Reference Range Interpretation Comments PROTIME (BEAKER) (test code = 13.8 seconds 11.9-14.2 759) INR (BEAKER) (test code = 370) 1.09 <=5.90 Effective 11/20/2018: PT Reference Range ChangeNew: 11.9-14.2 Previous: 11.7- 14.7RECOMMENDED COUMADIN/WARFARIN INR THERAPY RANGESSTANDARD DOSE: 2.0-3.0 Includes: PROPHYLAXIS for venous thrombosis, systemic embolization; TREATMENT for venous thrombosis and/or pulmonary embolus.HIGH RISK: Target INR is2.5-3.5 for patients wiht mechanical heart valves.Lipid [id number] 16:11:00 Test Item Value Reference Range Interpretation Comments Triglycerides (test 129 mg/dL code = 2571-8) Cholesterol (test code 148 mg/dL = 3-3) HDL (test code = 30 mg/dL 2084-9) LDL Calculated (test 92 mg/dL code = 99582-9) BARRON (test code = BARRON) Triglyceride Reference Range: Low Risk <150 Borderline 150-199 High Risk 200-499 Very High Risk >=500 Cholesterol Reference Range: Low Risk <200 Borderline 200-239 High Risk >240 HDL Cholesterol Reference Range: Low Risk >=60 High Risk <40 LDL Cholesterol Reference Range: Optimal <100 Near Optimal 100-129 Borderline 130-159 High 160-189 Very High >=190 Pest Control Service Sales Agent ID - ADMIN [facility] HospitalLIPID [id number] 16:11:00 Test Item Value Reference Range Interpretation Comments TRIGLYCERIDES (BEAKER) (test code = 129 mg/dL 540) CHOLESTEROL (BEAKER) (test code = 148 mg/dL 631) HDL CHOLESTEROL (BEAKER) (test code 30 mg/dL = 976) LDL CHOLESTEROL CALCULATED (BEAKER) 92 mg/dL (test code = 633) Triglyceride Reference Range: Low Risk <150 Borderline 150-199 High Risk 200-499 Very High Risk >=500Cholesterol Reference Range: Low Risk <200 Borderline 200-239 High Risk >240HDL Cholesterol Reference Range: Low Risk >=60 High Risk <40LDL Cholesterol Reference Range: Optimal <100 Near Optimal 100-129 Borderline 130-159 High 160-189 Very High >=190 Pest Control Service Sales Agent ID - ADMINPOCT-GLUCOSE [id number] 12:53:00 Test Item Value Reference Range Interpretation Comments POC-GLUCOSE METER 129 mg/dL 70-110 H : TESTED A T [facility] (BEAKER) (test code = [place], 1538) [address]: Pest Control Service Sales Agent/Techni josephine ID = [id number] for OR JOSE MANUEL VELASCO BASIC METABOLIC [id number] 10:42:00 Test Item Value Reference Range Interpretation Comments SODIUM (BEAKER) 135 meq/L 136-145 L (test code = 381) POTASSIUM (BEAKER) 3.5 meq/L 3.5-5.1 (test code = 379) CHLORIDE (BEAKER) 99 meq/L 98-107 (test code = 382) CO2 (BEAKER) (test 28 meq/L 22-29 code = 355) BLOOD UREA NITROGEN 10 mg/dL 7-21 (BEAKER) (test code = 354) CREATININE (BEAKER) 0.97 mg/dL 0.57-1.25 (test code = 358) GLUCOSE RANDOM 164 mg/dL 70-105 H (BEAKER) (test code = 652) CALCIUM (BEAKER) 8.6 mg/dL 8.4-10.2 (test code = 697) EGFR (BEAKER) (test 76 mL/min/1.73 ESTIMA HARMONY GFR IS code = 1092) sq m NOT ACCURATE CREATININE CLEARANCE IN PREDICTING GLOMERULAR FILTRATION RATE . ESTIMATED GFR I S NOT APPLICABLE FOR DIALYSIS PATIEN TS. P[employer] Service Sales Agent ID - PATRICIA [id number] 10:42:00 Test Item Value Reference Range Interpretation Comments MAGNESIUM (BEAKER) (test code = 1.9 mg/dL 1.6-2.6 627) Pest Control Service Sales Agent ID - PATRICIA CPLATELET AGGREGATION: FUNCTION [id number] 10:06:00 Test Item Value Reference Range Interpretation Comments [id number] Ted Lynch MD (BEAKER) (test code = (electronic 2622) signature) PLATELET COUNT AGG 156 K/CU MM 150-450 (BEAKER) (test code = 8776) ADP (BEAKER) (test code 54 % 62-100 L = 4654) PLATELET RICH 228 k/cu mm 200-300 PLASMA(BEAKER) (test code = 2134) PLATELET FUNCTION SCREEN Decreased aggregation INTERPRETATION (BEAKER) with ADP which (test code = 4387) indicates platelet dysfunction that may be due to medication effect, uremia, or other platelet function disorders. Clinical correlation is required. Platelet Function Screen results may be falsely low with platelet counts<75,000/cu mm.Pest Control Service Sales Agent ID- [id number]'s Only(Ankle/Brachial Index) 2020-05-07 08:24:13Ejection [facility] ECHO HEARTLAB MKCKESSON CPACSRight Impression1. The posterior tibial and dorsalis pedis arteries are patent withmonophasic Doppler waveforms.2. The PT pressure is >255 mmHg with an NICOLE of non compressible and the DPpressure is >255 mmHg with an NICOLE of non compressible.3. The great toe pressure is 58 mmHg with an abnormal TBI of 0.43.4. The digits have adequate flow by PPG waveforms.Left Impression1. The posterior tibial and dorsalis pedis arteries are patent withmonophasic Doppler waveforms.2. The PT pressure is 111 mmHg with an NICOLE of 0.82, in the mild obstructionrange and the DP pressure is 192 mmHg with an NICOLE of 1.41, in the calcifiedrange.3. The first, second and third toes are been amputated.4. The remaining digits have adequate flow by [...] by PPG waveforms. The left first, second andthird digits have been amputated. The remaining left digits had adequate flow by PPG waveforms. Signature Velocities are measured in cm/s ; Diameters are measured in cm Interface,External Ris In - 05/07/2020 8:24 AM CSTPV LAB - Lower Extremity Arterial Procedure Demographics Patient Name KIARRA RUFFIN Date of Study 05/06/2020 Age 70 Visit Number [id number] Gender Male Accession Number [id number] Date of 1950 Referring Denis Sriram Room Number 1142 Physician Joyce Quiller Hand Mariola Guzman T Interpreting Bettina Haas Physician ProcedureType of Study: Extremities Arteries: Lower Extremity Arterial Procedure, ARTERIAL (NICOLE'S W/DOPPLER) ONLY. Indications for Study:PVD and Claudication.Patient Status:Routine.Study Location:Vascular Lab.Technical Quality:Adequate visualization.Risk FactorsHistory of Disease+ +----+ +!Diagnosis !Date!Comments !+ +----+ +!Hist ory/Risk Factors: ! !CAD, PAD, DM !+ +---- + +ImpressionsRight Impression1. The posterior tibial and dorsalis pedis arteries are patent withmonophasic Doppler waveforms.2. The PT pressure is >255 mmHg with an NICOLE of noncompressible and the DPpressure is >255 mmHg with an NICOLE of non compressible.3. The great toe pressure is 58 mmHg with an abnormal TBI of 0.43.4. The digits have adequate flow by PPG waveforms.Left Impression1. The posterior tibial and dorsalis pedis arteries are patent withmonophasic Doppler waveforms.2. The PT pressure is 111 mmHg with an NICOLE of 0.82, in the mild obstructionrange and the DP pressure is 192 mmHg with an NICOLE of 1.41, in the calcifiedrange.3. The first, second and third toes are be en amputated.4. The remaining digits have adequate flow by [...] had adequate flow by PPG waveforms. Signature --------- Velocities are measured in cm/s ; Diameters are measured in [facility] Legs [id number] 08:23:53[facility] MKCKESSON CPACSRight Impression1. There is no deep venous venousobstruction in the common femoral,profunda femoral, femoral, popliteal, posterior tibial or peronealveins.2. There is no superficial venous obstruction in the great saphenous vein.Left Impression1. There is no deep venous obstruction in the common femoral, profundafemoral, femoral, popliteal, posterior tibial or peroneal veins.2. There is no superficial venous obstruction in the great saphenous vein. Conclusions Summary Venous duplex imaging and compression of the bilateral lower extremities wasperformed. The veins were adequately visualized. The bilateral venous systems were patent and compressible with no evidence of thrombus. Superficial venous measurements are documented below. Signature Velocities are measured in cm/s ; Diameters are measured in cm LE Vein MappingSuperficial - Great Saphenous Vein Right Left + + + + + + + + !Location ! !Diameter !Depth ! !Diameter !Depth ! + + + + + + + + !Sapheno Femoral Junction ! !0.59 ! ! !0.47 ! ! + + + + + + + +!GSV High Thigh ! !0.21 ! ! !0.31 ! ! +------ + + + + + + + !GSV Mid Thigh ! !0.21 ! ! !0.24 ! ! + + + + + + + + !GSV Low Thigh ! !0.26 ! ! !0.22 ! ! + + + + + +----- + + !GSV Knee ! !0.24 ! [...] + + + + !GSV Ankle ! !0.19! ! !0.2 ! ! +--- + + + + + + + Interface, External Ris In - 05/07/2020 8:24 AM CSTPV LAB - Lower Extremities Vein Mapping Demographics Patient Name KIARRA RUFFIN Date of Study 05/06/2020 Age 70 Visit Number [id number] Gender Male Date of 1950 Referring Clayton Reeder Room Number 1142 Physician Quiller Hand Ame Engle, Interpreting Bettina Haas T Physician ProcedureType of Study: Veins: Lower Extremity Vein Mapping, VEIN MAPPING, LOWER EXTREMITY, BILATERAL. Indications for Study:Pre OP CABG.Patient Stat us:STAT.Study Location:Vascular Lab.Technical Quality:Adequate visualization.Risk FactorsHistory of D isease+ +----+ -+!Diagnosis !Date!Comments !+ --+----+ +!History/Risk Factors: ! !CAD, PAD, DM !+ +----+ +Imp ressionsRight Impression1. There is no deep venous venous obstruction in the common femoral,profunda femoral, femoral, popliteal, posterior tibial or peroneal veins.2. There is no superficial venous obstruction in the great saphenous vein.Left Impression1. There is no deep venous obstruction in the common femoral, profundafemoral, femoral, popliteal, posterior tibial or peroneal veins.2. There is no superficial venous obstruction in the great saphenous vein. Conclusions Summary Venous duplex imaging and compression of the bilateral lower extremities was performed. The veins were adequately visualized. The bilateral venous systems were patent and compressible with no evidence of thrombus. Superficial venous measurements are documented below. Signature -- Velocities are measured in cm/s ; Diameters are measured in cmLE Vein Mapping Superficial - Great Saphenous Vein Right Left + + + + + + + + !Location ! !Diameter !Depth ! !Diameter !Depth ! + + + + + + + + !Sapheno Femoral Junction ! !0.59 ! ! !0.47 ! ! + + + + + + + + !GSV High Thigh ! !0.21 ! ! !0.31 ! ! + + +-- + + + + + !GSV Mid [...] ! ! + + + + + +------- + + !GSV Low Calf ! !0.18 ! ! !0.15 ! ! + + + + + + + + !GSV Ankle ! !0.19 ! ! !0.2 ! ! + + + + + + + +[facility] HospitalArterial doppler legs [id number] 08:23:35Ejection [facility] ECHO HEARTLAB MKCKESSON CPACSRight Impression1. The common femoral and poplitela arteries are patent with triphasicDoppler waveforms and calcified plaque throughout.2. The profunda femoral and peroneal arteries are patent with biphasicDoppler waveforms and calcified plaque throughout.3. The femoral, posterior tibial and anterior tibial arteries are patentwith multiphasic Doppler waveforms and calcified plaque throughout.Left Impression1. The common femoral, profunda femoral, femoral, popliteal and pernealarteries are patent with biphasic Doppler waveforms and calcified plaquethroughout.2. The posterior tibial and anterior tibial arteries are patent withmultiphasic Doppler waveforms and calcified plaque throughout.3. There are elevated velocities in the common femoral (251 cm/sec) and theproximal femoral (284 cm/sec) arteries. Conclusions Summary Arterial Doppler analysiswas performed bilaterally. The arteries were adequately visualized. Doppler waveforms were triphasic, biphasic and multiphasic with calcified plaque throughout bilateral lower extremities. On the left,there were elevated velocities visualized in the common femoral (251 cm/sec) and femoral (284 cm/sec) arteries. Signature Velocities are measured in cm/s ; Diameters are measured in cm LE Duplex Measurements Right Left + + + + + + +------- + + + !Location ! !PSV !EDV [...] + + !Prox Popliteal ! !56.6 ! !! !54.6 ! ! ! + + + + + + +---- + + + !Dist Popliteal ! !76.2 ! ! ! !63.9 ! ! ! + + + + + + + + + + !Prox EDUCATIONAL ASSISTANT ! !57.4 ! ! ! !33 ! ! ! + + + + + + + + + + !Mid EDUCATIONAL ASSISTANT ! !107 ! ! ! !31.4 ! ! ! + + + ---------+ + + + + + + !Dist EDUCATIONAL ASSISTANT ! !56.9 ! ! ! !29.1 ! [...] ! + + + + + + +- + + + !Prox Peroneal ! !36.7 ! ! ! !45.6 ! ! ! + + + + + + + + + + !Mid Peroneal ! !40.1 ! ! ! !87.4 ! ! ! + + + + + + + + + + !Dist Peroneal ! !39.7 ! ! ! !45.6 ! ! ! + + +------- + + + + + + + Interface, External Ris In - 05/07/2020 8:23 AM [facility] - Lower Extremity Arterial Duplex Demographics Patient Name KIARRA RUFFIN Date of Study 05/06/2020 Age 70 Visit Number [id number] Gender Male Accession Number [id number] Date of 1950 [facility] Room Number 1142 Physician Joyce Quiller Hand Ame Engle, Interpreting Bettina Haas T Physician ProcedureType of Study: Extremities Arteries: Lower Extremities Arterial Duplex, ARTERIAL DOPPLER LEGS, BILATERAL. Indications for Study:PVD and Claudication.Patient Status:Routine.Study Location:Vascular Lab.Technical Quality:Adequate visualization.Risk FactorsHistory of Disease+ +----+ +!Diagnosis !Date!Comments !+ +----+ --+!History/Risk Factors: ! !CAD, PAD, DM !+ +----+ +ImpressionsRight Impression1. The common femoral and poplitela arteries are patent with triphasicDoppler waveforms and calcified plaque throughout.2. The profunda femoral and peroneal arteries are patent with biphasicDoppler waveforms and calcifiedplaque throughout.3. The femoral, posterior tibial and anterior tibial arteries are patentwith multiphasic Doppler waveforms and calcified plaque throughout.Left Impression1. The common femoral, profunda femoral, femoral, popliteal and pernealarteries are patent with biphasic Doppler waveforms and calcified plaquethroughout.2. The posterior tibial and anterior tibial arteries are patent withmultiphasic Doppler waveforms and calcified plaque throughout.3. There are elevated velocities in the common femoral (251 cm/sec) and theproximal femoral (284 cm/sec) arteries. Conclusions Summary Arterial Doppler analysis was performed bilaterally. The arteries were adequately visualized. Doppler waveforms were triphasic, biphasic and multiphasic with calcified plaque throughout bilateral lower extremities.On the left, there were elevated velocities visualized in the common femoral (251 cm/sec) and femoral (284 cm/sec) arteries. Signature Velocities are measured in cm/s ; Diameters are measured in cmLE Duplex Measurements Right Left + + + + + + + + + + !Location ! !PSV !EDV !Waveform ! !PSV !EDV !Waveform ! + + + + + + + ---------+ + + !Mid Common Femoral ! !112 ! ! ! !244 ! ! ! + + + + + + + + + + !Prox PFA ! !95.1 ! ! ! !93.2 ! ! ! + + +-- + + + + + + + [...] ! + + + + + + +------- + + + !Prox EDUCATIONAL ASSISTANT ! !57.4 ! ! ! !33 ! ! ! + + + + + + + + + + !Mid EDUCATIONAL ASSISTANT ! !107 ! ! ! !31.4 ! ! ! + + + + + + + + + + !Dist EDUCATIONAL ASSISTANT ! !56.9 ! ! ! !29.1 ! [...] + + !Prox Peroneal ! !36.7 ! !! !45.6 ! ! ! + + + + + + +---- + + + !Mid Peroneal ! !40.1 ! ! ! !87.4 ! ! ! + + + + + + + + + + !Dist Peroneal ! !39.7 ! ! ! !45.6 ! ! ! + + + + + + + + + +[facility] HospitalCarot[facility] doppler [id number] 08:23:10[facility] E[facility] HEART[facility] MKCKESSON CPACSRight Impression1. There is <50% diameter reduc tion (approximately 38% by 2-D measurement)in the internal carotid artery with a peak velocity of 115 cm/sec andheterogeneous plaque.2. There is non-occluding plaque in the external carotid artery.3. There is non-occluding plaque in the common carotid artery.4. The vertebral artery flow is antegrade.5. The subclavian artery is patent with a velocity of 86 cm/sec.Left Impression1. There is <50% diameter reduction (approximately 43% by 2-D measurement)in the internal carotid artery with a peak velocity of 112 cm/sec andheterogeneous plaque.2. There is non-occluding plaque in the external carotid artery.3. There is non-occluding plaque in the common carotid artery.4. The vertebral artery flow is antegrade.5. The subclavian artery is patent with a [...] arteries were patent bilaterally where visualized. Signature Velocitiesare measured in cm/s ; Diameters are measured in cm Carotid Right Measurements+ +---+-- -+-----+ + + +!Location !PSV!EDV!Angle!%Stenosis 2D!%Stenosis Doppler !Tortuosity !+ +---+---+-----+ + + --+!Prox CCA !90 !12 !60 ! ! ! !+ +---+- --+-----+ + + +!Dist CCA !58 !15 !60 ! ! ! !+ +---+---+-----+ + +--------- ---+!Prox ICA !115!28 !60 ! ! ! !+ +---+ ---+-----+ + + +!Dist ICA !114!26 !60 ! ! ! !+ +---+---+-----+ + +-------- ----+!Prox ECA !242!26 !60 ! ! ! !+ +--- +---+-----+ + + +!Vertebral !86 !16 !60 ! ! ! !+ +---+---+-----+ + +------- -----+!Prox Subclavian!86 ! !60 ! ! ! !+ +---+---+-----+ + + + - Additional Measurements:ICAPSV/CCAPSV 1.98.ICAEDV/CCAEDV 2.33. Carotid Left Measurements+ +---+---+-----+ +-------- + +!Location !PSV!EDV!Angle!%Stenosis 2D!%Stenosis Doppler !Tortuosity !+ +---+---+-----+ + + +!Prox CCA !133!23 !60 ! ! ! !+ +---+---+-----+ +------- + +!Dist CCA !138!22 !60 ! ! ! ! + +---+---+-----+ + + +!Pro x ICA !109!28 !60 ! ! ! !+ +---+---+-----+ +------ + +!Dist ICA !112!29 !54 ! ! ! !+ +---+---+-----+ + + +!Pr ox ECA !95 !14!60 ! ! ! !+ +---+---+-----+ +----- + +!Vertebral !95 !23 !60 ! ! ! !+ +---+---+-----+ + + +!Pr ox Subclavian!142! !60 ! ! ! !+ +---+---+-----+ + + + - Additional Measurements:ICAPSV/CCAPSV 0.81.ICAEDV/CCAEDV 1.26. Interface, External Ris In - 05/07/2020 8:23 AM CSTPV LAB - Carotid Duplex Study Demographics Patient Name KIARRA RUFFIN Date of Study 05/06/2020 Age 70 Visit Number [id number] Gender Male Accession Number [id number] Date of 1950 Referring Clayton Reeder Room Number 1142 Physician Quiller Hand Ame Engle, Interpreting Bettina Haas T Physician ProcedureType of Study: Cerebral: Carotid, CAROTID DOPPLER, BILATERAL. Indications for Study:Pre-op CABG.Patient Status:STAT.Study Location:Vascular Lab.Technical Quality:Adequate visualization.Risk FactorsHistory of Disease+ +----+ +!Diagnosis !Date!Comments !+ +----+ +!Hi story/Risk Factors: ! !CAD, PAD, DM !+ +----+ +ImpressionsRight Impression1. There is <50% diameter reduction (approximately 38% by 2-D measurement)in the internal carotid artery with a peak velocity of 115 cm/sec andheterogeneous plaque.2. There is non-occluding plaque in the external carotid artery.3. There is non-occluding plaque in the common carotid artery.4. The vertebral artery flow is antegrade.5. The subclavian artery is patent with a velocity of 86 cm/sec.Left Impression1. There is <50% diameter reduction (approximately 43% by 2-D measurement)in the internal carotid artery with a peak velocity of 112 cm/sec andheterogeneous plaque.2. There is non-occluding plaque in the external carotid artery.3. There is non-occluding plaque in the common carotid artery.4. The vertebral artery flow is antegrade.5. The subclavian artery is patent with a [...] in cm/s ; Diameters are measured in cmCarotid Right Measurements+ +- --+---+-----+ + + +!Location !PSV!EDV!Angle!%Stenosis 2D!%Stenosis Doppler !Tortuosity !+ +---+---+-----+ + +----- -------+!Prox CCA !90 !12 !60 ! ! ! !+ + ---+---+-----+ + + +!Dist CCA !58 !15 !60 ! ! ! !+ +---+---+-----+ + +---- --------+!Prox ICA !115!28 !60 ! ! ! !+ +---+---+-----+ + + +!Dist ICA !114!26 !60 ! ! ! !+ +---+---+-----+ + +--- ---------+!Prox ECA !242!26 !60 ! ! ! !+ -+---+---+-----+ + + +!Vertebral !86 !16 !60 ! ! ! !+ +---+---+-----+ + +-- +!Prox Subclavian!86 ! !60 ! ! ! !+ --+---+---+-----+ + + + - Additional Measurements:ICAPSV/CCAPSV 1.98.ICAEDV/CCAEDV 2.33.Carotid Left Measurements+ +---+---+-----+ +----- + +!Location !PSV!EDV!Angle!%Stenosis 2D!%Stenosis Doppler !Tortuosity !+ +---+---+-----+ + + +!Pr ox CCA !133!23 !60 ! ! ! !+ +---+---+-----+ +---- + +!Dist CCA !138!22 !60 ! ! ! !+ +---+---+-----+ + + +!Pr ox ICA !109!28 !60 ! ! ! !+ +---+---+-----+ +--- + +!Dist ICA !112!29 !54 ! ! ! !+ +---+---+-----+ + + +!Pr ox ECA !95 !14 !60 ! ! ! !+ +---+---+-----+ +-- + +!Vertebral !95 !23 !60 ! ! ! !+ +---+---+-----+ + + +!Pr ox Subclavian!142! !60 ! ! ! !+ +---+---+-----+ + + + - Additional Measurements:ICAPSV/CCAPSV 0.81.ICAEDV/CCAEDV 1.26.[facility] CenterClostridium difficile GDH [id number] 08:20:00 Test Item Value Reference Range Interpretation Comments C. Difficle Toxin Negative Negative (test code = 2696198434) C. Difficile GDH Negative Negative No indicati on of Antigen (test code = Clostri dium 3271440185) difficile infection and n o colonization. Discontinue enteric isolati on and therapy. BARRON (test code = Testing performed BARRON) by Alere Rapid Cassette Assay. For GDH, published sensitivity of the assay is 98.7% compared to cytotoxicity testing. For Toxin AB, published sensitivity is 87.8% and specificity 99.4% compared to cytotoxicity testing.Verificati on of kit performance was done by the [facility] Microbiology Lab prior to clinical use. Lab Interpretation Normal (test code = 72198-3) [facility]. DIFFICILE GDH [id number] 08:20:00 Test Item Value Reference Range Interpretation Comments CDT TOXIN (test code Negative Negative = [id number]) CDT GDH ANTIGEN (test Negative Negative No ind ication of code = [id number]) Clostridi um difficile infection and n o colonization. Discontinue ent luis felipe isolation and t herapy. Testing performed by Alere Rapid Cassette Assay. For GDH, published sensitivity of the assay is 98.7% compared to cytotoxicity testing. For Toxin AB, published sensitivity is 87.8% and specificity 99.4% compared to cytotoxicity testing.Verification of kit performance was done by the [facility] Microbiology Lab prior to clinical use.CBC W/PLT COUNT & AUTO [id number] 06:51:00 Test Item Value Reference Range Interpretation Comments WHITE BLOOD CELL COUNT (BEAKER) 4.3 K/ L 3.5-10.5 (test code = 775) RED BLOOD CELL COUNT (BEAKER) 2.75 M/ L 4.63-6.08 L (test code = 761) HEMOGLOBIN (BEAKER) (test code = 8.4 GM/DL 13.7-17.5 L 410) HEMATOCRIT (BEAKER) (test code = 25.1 % 40.1-51.0 L 411) MEAN CORPUSCULAR VOLUME (BEAKER) 91.3 fL 79.0-92.2 (test code = 753) MEAN CORPUSCULAR HEMOGLOBIN 30.5 pg 25.7-32.2 (BEAKER) (test code = 751) MEAN CORPUSCULAR HEMOGLOBIN CONC 33.5 GM/DL 32.3-36.5 (BEAKER) (test code = 752) RED CELL DISTRIBUTION WIDTH 12.9 % 11.6-14.4 (BEAKER) (test code = 412) PLATELET COUNT (BEAKER) (test 163 K/CU MM 150-450 code = 756) MEAN PLATELET VOLUME (BEAKER) 9.1 fL 9.4-12.4 L (test code = 754) NUCLEATED RED BLOOD CELLS 0 /100 WBC 0-0 (BEAKER) (test code = 413) NEUTROPHILS RELATIVE PERCENT 61 % (BEAKER) (test code = 429) LYMPHOCYTES RELATIVE PERCENT 18 % (BEAKER) (test code = 430) MONOCYTES RELATIVE PERCENT 15 % (BEAKER) (test code = 431) EOSINOPHILS RELATIVE PERCENT 6 % (BEAKER) (test code = 432) BASOPHILS RELATIVE PERCENT 1 % (BEAKER) (test code = 437) NEUTROPHILS ABSOLUTE COUNT 2.63 K/ L 1.78-5.38 (BEAKER) (test code = 670) LYMPHOCYTES ABSOLUTE COUNT 0.76 K/ L 1.32-3.57 L (BEAKER) (test code = 414) MONOCYTES ABSOLUTE COUNT (BEAKER) 0.64 K/ L 0.30-0.82 (test code = 415) EOSINOPHILS ABSOLUTE COUNT 0.24 K/ L 0.04-0.54 (BEAKER) (test code = 416) BASOPHILS ABSOLUTE COUNT (BEAKER) 0.03 K/ L 0.01-0.08 (test code = 417) IMMATURE GRANULOCYTES-RELATIVE 1 % 0-1 PERCENT (BEAKER) (test code = 2801) RAD, CHEST, 2 [id number] 23:11:00Reason for exam:->pneumoniaShould this be performed at the bedside?->No [facility] : 1950 Sex: MFINAL REPORT RAD, CHEST, 2 VIEWS TECHNIQUE: Frontal and lateral views ofthe chest. INDICATION: pneumonia COMPARISON: None. FINDINGS: Lungs: Patchy nodular opacities in theleft apex and left lower lobe. Streaky right suprahilar opacity, likely atelectasis/scar. Pleura: Nopleural effusion or pneumothorax. Heart and Mediastinum: Aortic knob calcifications, otherwise cardiomediastinal silhouette is within normal limits. Lines/Tubes: None. Soft Tissues and Bones: No acute osseous abnormality. IMPRESSION:Patchy nodular opacities in the left apex and left lower lobe, concerning for multifocal pneumonia versus solid lesions. Recommend follow-up PA and lateral chest radiographs after a course of treatment to ensure resolution or compare with any recent outside prior exams. Signed: Luis Felipe Sanches Verified Date/Time: 05/06/2020 23:11:10 Reading Location: [address] Reading Room XR chest 2 [id number] 23:11:00 Interface, External Ris In - 05/06/2020 11:13 PM CSTFINAL REPORT RAD, CHEST, 2 VIEWS TECHNIQUE: Frontal and lateral views of the chest. INDICATION: pneumonia COMPARISON: None. FINDINGS: Lungs: Patchy nodular opacities in the left apex and left lower lobe. Streaky right suprahilar opacity, likely atelectasis/scar. Pleura: No pleural effusion or pneumothorax. Heart and Mediastinum: Aortic knob calcifications, otherwise cardiomediastinal silhouette is within normal limits. Lines/Tubes: None. Soft Tissues and Bones: No acute osseous abnormality. IMPRESSION:Patchy nodular opacities in the left apex and left lower lobe, concerning for multifocal pneumonia versus solid lesions. Recommend follow-up PA and lateral chest radiographs after a course of treatment to ensure resolutionor compare with any recent outside prior exams. Signed: Luis Felipe Sanchesepbety Verified Date/Time: 05/06/2020 23:11:10 Reading Location: [facility] B1 C013T Transitional Reading Room [facility] SARS-COV2/RT-PCR ([facility])2020-05-06 22:20:00 Test Item Value Reference Range Interpretation Comments SARS-COV2/RT-PCR (test code Negative Not Detected, Negative, = [id number]) See external report for linked test SARS-COV-2 PERFORMING LAB [facility] (test code = 7567728) Negative results do not preclude SARS-CoV-2 infection and should not be used as the sole basis for patient management decisions. Negative results must be combined with clinical observations, patient history, and epidemiological information. A false negative result may occur if a specimen is improperly collected, transported or handled.The limit of detection for this assay is 250 copies/mL.This SARS CoV-2 test is a rapid, real-time RT-PCR test intended for the qualitative detection of nucleic acid from SARS-CoV-2 in a nasopharyngeal swab specimen collected from individuals suspected of COVID-19 by their healthcare provider.This test has not been Food and Drug Administration (FDA) cleared or approved and has been authorized by FDA under an Emergency Use Authorization (EUA). This EUA will be effective until the declaration that circumstances exist justifying the authorization of the emergency use of in vitro diagnostic tests for detection and/or diagnosis of COVID-19 is terminated under Section 564(b)(2) of the Act or the EUA is revoked under Section 564(g) of the Act.Fact Sheet for Healthcare Pro viders:https://www.[employer]/Documents/Xpert%20Xpress%20SARS%20CoV-2/Fact%20Sh eets/302-5682%72ZLQP-CJC-2%20HEALTHCARE%20PROVIDERS%20FACT%20SHEET.pdfFact Sheet for Healthcare Patients:https://www.[employer]/Documents/Xpert%20Xpress%20SARS%20CoV-2/Fact%20Sheets/3023801%20SARS-COV -2%20PATIENT%20FACT%20SHEET.pdfPerforming Laboratory:[facility], [place] [address]POIY-EVEXRCL [id number] 21:15:00 Test Item Value Reference Range Interpretation Comments POC-GLUCOSE METER 326 mg/dL 70-110 H : TESTED A T [facility] 6720 (BEAKER) (test code = [place], 1538) [address]: Pest Control Service Sales Agent/Techni josephine ID = [id number] for ROSS GUTHRIE, [id number] 21:11:00 Test Item Value Reference Range Interpretation Comments ABO Grouping (test code = 2588) A Rh Factor (test code = 2589) POS [facility]PO[facility] [id number] 18:25:00 Test Item Value Reference Range Interpretation Comments POC-GLUCOSE METER 212 mg/dL 70-110 H : TESTED A T [facility] 6720 (BEAKER) (test code = [place], 1538) 85135: Pest Control Service Sales Agent/Techni josephine ID = [id number] for GABE MILLS HEMOGLOBIN [id number] 14:50:00 Test Item Value Reference Range Interpretation Comments HEMOGLOBIN A1C (BANNER) (test code = 13.8 % 4.3-6.1 H 368) POCT-GLUCOSE [id number] 11:52:00 Test Item Value Reference Range Interpretation Comments POC-GLUCOSE METER 231 mg/dL 70-110 H : TESTED A T [facility] 6720 (BEAKER) (test code = [place], 1538) 70443: Pest Control Service Sales Agent/Techni josephine ID = [id number] for GABE MILLS PLATELET AGGREGATION: FUNCTION [id number] 11:25:00 Test Item Value Reference Range Interpretation Comments [id number] Nadege Biswas MD (BEAKER) (test code = (electronic 2622) signature) PLATELET COUNT AGG 147 K/CU MM 150-450 L (BEAKER) (test code = 1866) ADP (BEAKER) (test code 42 % 62-100 L = 7934) PLATELET RICH 170 k/cu mm 200-300 L PLASMA(BEAKER) (test code = 3014) PLATELET FUNCTION SCREEN Decreased aggregation INTERPRETATION (BEAKER) with ADP which (test code = 2033) indicates platelet dysfunction that may be due to medication effect, uremia, or other platelet function disorders. Clinical correlation is required. Platelet Function Screen results may be falsely low with platelet counts<75,000/cu mm.Pest Control Service Sales Agent ID- [id number]-GLUCOSE [id number] 09:00:00 Test Item Value Reference Range Interpretation Comments POC-GLUCOSE METER 162 mg/dL 70-110 H : [facility] (BEAKER) (test code = [place], 1538) [address]: Pest Control Service Sales Agent/Techni josephine ID = [id number] for GABE MILLS BASIC METABOLIC [id number] 07:13:00 Test Item Value Reference Range Interpretation Comments SODIUM (BEAKER) 138 meq/L 136-145 (test code = 381) POTASSIUM (BEAKER) 3.7 meq/L 3.5-5.1 (test code = 379) CHLORIDE (BEAKER) 99 meq/L 98-107 (test code = 382) CO2 (BEAKER) (test 33 meq/L 22-29 H code = 355) BLOOD UREA NITROGEN 13 mg/dL 7-21 (BEAKER) (test code = 354) CREATININE (BEAKER) 1.20 mg/dL 0.57-1.25 (test code = 358) GLUCOSE RANDOM 180 mg/dL 70-105 H (BEAKER) (test code = 652) CALCIUM (BEAKER) 8.9 mg/dL 8.4-10.2 (test code = 697) EGFR (BEAKER) (test 60 mL/min/1.73 ESTIMA HARMONY GFR IS code = 1092) sq m NOT ACCURATE CREATININE CLEARANCE IN PREDICTING GLOMERULAR FILTRATION RATE . ESTIMATED GFR I S NOT APPLICABLE FOR DIALYSIS PATIEN TS. Pest Control Service Sales Agent ID - LEVI [id number] 07:13:00 Test Item Value Reference Range Interpretation Comments MAGNESIUM (BEAKER) (test code = 1.8 mg/dL 1.6-2.6 627) Pest Control Service Sales Agent ID - LEVI MCBC W/PLT COUNT & AUTO [id number] 06:25:00 Test Item Value Reference Range Interpretation Comments WHITE BLOOD CELL COUNT (BEAKER) 4.7 K/ L 3.5-10.5 (test code = 775) RED BLOOD CELL COUNT (BEAKER) 2.89 M/ L 4.63-6.08 L (test code = 761) HEMOGLOBIN (BEAKER) (test code = 8.9 GM/DL 13.7-17.5 L 410) HEMATOCRIT (BEAKER) (test code = 27.2 % 40.1-51.0 L 411) MEAN CORPUSCULAR VOLUME (BEAKER) 94.1 fL 79.0-92.2 H (test code = 753) MEAN CORPUSCULAR HEMOGLOBIN 30.8 pg 25.7-32.2 (BEAKER) (test code = 751) MEAN CORPUSCULAR HEMOGLOBIN CONC 32.7 GM/DL 32.3-36.5 (BEAKER) (test code = 752) RED CELL DISTRIBUTION WIDTH 13.0 % 11.6-14.4 (BEAKER) (test code = 412) PLATELET COUNT (BEAKER) (test 139 K/CU MM 150-450 L code = 756) MEAN PLATELET VOLUME (BEAKER) 9.4 fL 9.4-12.4 (test code = 754) NUCLEATED RED BLOOD CELLS 0 /100 WBC 0-0 (BEAKER) (test code = 413) NEUTROPHILS RELATIVE PERCENT 68 % (BEAKER) (test code = 429) LYMPHOCYTES RELATIVE PERCENT 14 % (BEAKER) (test code = 430) MONOCYTES RELATIVE PERCENT 11 % (BEAKER) (test code = 431) EOSINOPHILS RELATIVE PERCENT 6 % (BEAKER) (test code = 432) BASOPHILS RELATIVE PERCENT 1 % (BEAKER) (test code = 437) NEUTROPHILS ABSOLUTE COUNT 3.19 K/ L 1.78-5.38 (BEAKER) (test code = 670) LYMPHOCYTES ABSOLUTE COUNT 0.67 K/ L 1.32-3.57 L (BEAKER) (test code = 414) MONOCYTES ABSOLUTE COUNT (BEAKER) 0.53 K/ L 0.30-0.82 (test code = 415) EOSINOPHILS ABSOLUTE COUNT 0.26 K/ L 0.04-0.54 (BEAKER) (test code = 416) BASOPHILS ABSOLUTE COUNT (BEAKER) 0.03 K/ L 0.01-0.08 (test code = 417) IMMATURE GRANULOCYTES-RELATIVE 0 % 0-1 PERCENT (BEAKER) (test code = 2801) 2D Echo W/Doppler(CW/PW/Color)2020-05-05 23:00:50Ejection [facility] ECHO HEARTLAB MKCKESSON CPACSInterface, External Ris In - 05/05/2020 11:00 PM C STTransthoracic Echocardiography Report (TTE) Demographics Patient Name KIARRA RUFFIN Date of Study 05/05/2020 Gender Male Visit Number [id number] Race Unknown Room Number 1142 Number Date of 1950 Referring Physician Sriram Denis MD Age 70 year(s) Quiller Hand Bina 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 The left ventricle is chamber size (by vol index) is small and underfilled. Mild concentric LV hypertrophy. All of the LV segments are hyperkinetic . LVEF by Soto's method of disk assessment is increased (&g t;70%). Grade 1 diastolic dysfunction (impaired relaxation and low-normal LA pressure). LA size is normal (16-34 ml/m2) . 2. The right ventricular chamber size and systolic function are within normal limits. RA cavity size is normal. Unable to estimate peak systolic PA pressure; inadequate TR velocity signal. 3. No significant valvular abnormalities. Previous Study No prior exam available for comparison. Signature Findings Left Ventricle The left ventricle is chamber size (by vol index) is small. Mild concentric LV hypertrophy. All of the LV segments are hyperkinetic . Global LV systolic function hyperdynamic . LVEF by Soto's method of disk assessment is increased (>70%) . The LVEF was measured using Soto's bi- plane method of disk . Grade 1 diastolic dysfunction (impaired relaxation and low-normal LA pressure). Left Atrium LA [...] diameter) is normal . Pericardium No significant pericardial effusion is [...] S of Bailey.: 3.35 cm Doppler/Quantitative Measurements MitralValve MV Peak E-Wave: 0.51 m/s MV Peak [...] LVOT CO: 5.67 l/min LVOT CI: 2.75 l/min/m^2[facility]PO[facility] [id number] 21:11:00 Test Item Value Reference Range Interpretation Comments POC-GLUCOSE METER 223 mg/dL 70-110 H : TESTED A T [facility] 6720 (BEAKER) (test code = [place], 1538) 66621: Pest Control Service Sales Agent/Techni josephine ID = [id number] for SORIN NOBLES POCT-GLUCOSE [id number] 17:06:00 Test Item Value Reference Range Interpretation Comments POC-GLUCOSE METER 248 mg/dL 70-110 H : TESTED A T [facility] 6720 (BEAKER) (test code = [place], 1538) 14584: Pest Control Service Sales Agent/Techni josephine ID = [id number] for GABE MILLS POCT-GLUCOSE [id number] 12:10:00 Test Item Value Reference Range Interpretation Comments POC-GLUCOSE METER 113 mg/dL 70-110 H : TESTED A T [facility] 6720 (BEAKER) (test code = [place], 1538) 93992: Pest Control Service Sales Agent/Techni josephine ID = [id number] for GABE MILLS HEMOGLOBIN [id number] 10:27:00 Test Item Value Reference Range Interpretation Comments HEMOGLOBIN A1C (BEAKER) (test code = 14.2 % 4.3-6.1 H 368) BASIC METABOLIC [id number] 06:21:00 Test Item Value Reference Range Interpretation Comments SODIUM (BEAKER) 133 meq/L 136-145 L (test code = 381) POTASSIUM (BEAKER) 3.3 meq/L 3.5-5.1 L (test code = 379) CHLORIDE (BEAKER) 98 meq/L 98-107 (test code = 382) CO2 (BEAKER) (test 26 meq/L 22-29 code = 355) BLOOD UREA NITROGEN 16 mg/dL 7-21 (BEAKER) (test code = 354) CREATININE (BEAKER) 1.22 mg/dL 0.57-1.25 (test code = 358) GLUCOSE RANDOM 168 mg/dL 70-105 H (BEAKER) (test code = 652) CALCIUM (BEAKER) 8.6 mg/dL 8.4-10.2 (test code = 697) EGFR (BEAKER) (test 59 mL/min/1.73 ESTIMA HARMONY GFR IS code = 1092) sq m NOT ACCURATE CREATININE CLEARANCE IN PREDICTING GLOMERULAR FILTRATION RATE . ESTIMATED GFR I S NOT APPLICABLE FOR DIALYSIS PATIEN TS. Pest Control Service Sales Agent ID - [id number] 06:21:00 Test Item Value Reference Range Interpretation Comments MAGNESIUM (BEAKER) (test code = 1.7 mg/dL 1.6-2.6 627) Pest Control Service Sales Agent ID - BSLIPID [id number] 06:21:00 Test Item Value Reference Range Interpretation Comments TRIGLYCERIDES (BEAKER) (test code = 144 mg/dL 540) CHOLESTEROL (BEAKER) (test code = 170 mg/dL 631) HDL CHOLESTEROL (BEAKER) (test code 33 mg/dL = 976) LDL CHOLESTEROL CALCULATED (BEAKER) 108 mg/dL (test code = 633) Triglyceride Reference Range: Low Risk <150 Borderline 150-199 High Risk 200-499 Very High Risk >=500Cholesterol Reference Range: Low Risk <200 Borderline 200-239 High Risk >240HDL Cholesterol Reference Range: Low Risk >=60 High Risk <40LDL Cholesterol Reference Range: Optimal <100 Near Optimal 100-129 Borderline 130-159 High 160-189 Very High >=190 Pest Control Service Sales Agent ID - BSCBC W/PLT COUNT & AUTO [id number] 06:00:00 Test Item Value Reference Range Interpretation Comments WHITE BLOOD CELL COUNT (BEAKER) 5.2 K/ L 3.5-10.5 (test code = 775) RED BLOOD CELL COUNT (BEAKER) 3.22 M/ L 4.63-6.08 L (test code = 761) HEMOGLOBIN (BEAKER) (test code = 9.7 GM/DL 13.7-17.5 L 410) HEMATOCRIT (BEAKER) (test code = 29.7 % 40.1-51.0 L 411) MEAN CORPUSCULAR VOLUME (BEAKER) 92.2 fL 79.0-92.2 (test code = 753) MEAN CORPUSCULAR HEMOGLOBIN 30.1 pg 25.7-32.2 (BEAKER) (test code = 751) MEAN CORPUSCULAR HEMOGLOBIN CONC 32.7 GM/DL 32.3-36.5 (BEAKER) (test code = 752) RED CELL DISTRIBUTION WIDTH 12.9 % 11.6-14.4 (BEAKER) (test code = 412) PLATELET COUNT (BEAKER) (test 124 K/CU MM 150-450 L code = 756) MEAN PLATELET VOLUME (BEAKER) 9.6 fL 9.4-12.4 (test code = 754) NUCLEATED RED BLOOD CELLS 0 /100 WBC 0-0 (BEAKER) (test code = 413) NEUTROPHILS RELATIVE PERCENT 71 % (BEAKER) (test code = 429) LYMPHOCYTES RELATIVE PERCENT 15 % (BEAKER) (test code = 430) MONOCYTES RELATIVE PERCENT 9 % (BEAKER) (test code = 431) EOSINOPHILS RELATIVE PERCENT 4 % (BEAKER) (test code = 432) BASOPHILS RELATIVE PERCENT 0 % (BEAKER) (test code = 437) NEUTROPHILS ABSOLUTE COUNT 3.74 K/ L 1.78-5.38 (BEAKER) (test code = 670) LYMPHOCYTES ABSOLUTE COUNT 0.77 K/ L 1.32-3.57 L (BEAKER) (test code = 414) MONOCYTES ABSOLUTE COUNT (BEAKER) 0.48 K/ L 0.30-0.82 (test code = 415) EOSINOPHILS ABSOLUTE COUNT 0.21 K/ L 0.04-0.54 (BEAKER) (test code = 416) BASOPHILS ABSOLUTE COUNT (BEAKER) 0.02 K/ L 0.01-0.08 (test code = 417) IMMATURE GRANULOCYTES-RELATIVE 0 % 0-1 PERCENT (BEAKER) (test code = 2801) PROTHROMBIN [id number] 05:50:00 Test Item Value Reference Range Interpretation Comments PROTIME (BEAKER) (test code = 15.0 seconds 11.9-14.2 H 759) INR (BEAKER) (test code = 370) 1.21 <=5.90 Effective 11/20/2018: PT Reference Range ChangeNew: 11.9-14.2 Previous: 11.7- 14.7RECOMMENDED COUMADIN/WARFARIN INR THERAPY RANGESSTANDARD DOSE: 2.0-3.0 Includes: PROPHYLAXIS for venous thrombosis, systemic embolization; TREATMENT for venous thrombosis and/or pulmonary embolus.HIGH RISK: Target INR is2.5-3.5 for patients wiht mechanical heart valves.
[2020-05-18] MEDS ORDERED: GLUCAGON 1 MG/VIAL IM PRN (18:58)
[2020-05-18] MEDS ORDERED: ONDANSETRON 4 MG (ODT) TAB PO PRN (18:58)
[2020-05-18] MEDS ORDERED: D50W 25 GM/50 ML SYRINGE IV PRN (18:58)
[2020-05-18] MEDS ORDERED: DOCUSATE NA/SENNA CONC 1 TAB PO PRN (19:27)
[2020-05-18] MEDS: ATORVASTATIN 80 MG TAB PO SCH (20:08)
[2020-05-18] MEDS: HYDROCODONE/APAP 5/325 MG TAB PO PRN (20:08)
[2020-05-18] MEDS: GABAPENTIN 300 MG CAP PO SCH (20:08)
[2020-05-18] MEDS: MELATONIN 3 MG TABLET PO SCH (20:09)
[2020-05-18 20:46] LABS: Urine Appearance CLOUDY; Urine Bilirubin NEGATIVE (NEG); Urine Blood TRACE (NEG); Urine Color YELLOW; Urine Glucose 3+ (NEG); Urine Protein 1+ (NEG); Urine Specific Gravity 1.025 (1.005-1.030)
[2020-05-18 20:58] LABS: Urine Bacteria 20-50 /HPF (NONE SEEN); Urine RBC <5 /HPF (NONE SEEN); Urine Yeast FEW (NONE SEEN); Urine Yeast with Hyphae PRESENT
[2020-05-18] MEDS ORDERED: INSULIN GLARGINE 100 UNITS/ML SQ SCH (21:00)
[2020-05-19] MEDS: HYDROCODONE/APAP 5/325 MG TAB PO PRN ×2 (06:03→23:48)
[2020-05-19 07:05] LABS: Magnesium 1.9 mg/dL (1.8-2.4); Potassium 4.6 mmol/L (3.5-5.1); Prealbumin 8.1 mg/dL (20-40)
[2020-05-19 07:20] LABS: Absolute Lymphocytes (CBC) 0.9 K/uL (0.7-4.9); Basophils % 1.5 % (0-1.3); Hematocrit 31.5 % (39.6-49.0); Lymphocytes % 11.4 % (15.3-44.8); MPV 7.4 fL (7.6-11.3); RBC Red Blood Cell Count 3.42 M/uL (4.33-5.43)
[2020-05-19] MEDS: ASPIRIN 81 MG CHEWABLE TABLET PO SCH (07:21)
[2020-05-19] MEDS: GABAPENTIN 300 MG CAP PO SCH ×3 (07:21→19:31)
[2020-05-19] MEDS: FLUDROCORTISONE 0.1 MG TAB PO SCH (07:22)
[2020-05-19] MEDS: POLYETHYL GLY 3350 17 GM/DOSE PO SCH (07:25)
[2020-05-19] MEDS: MIDODRINE HCL 5 MG TABLET PO SCH ×3 (07:25→17:05)
[2020-05-19] MEDS: LEVOTHYROXINE SOD 0.05 MG TABLET PO SCH (07:26)
[2020-05-19] MEDS: LIOTHYRONINE SOD 5 MCG TAB PO SCH (07:31)
[2020-05-19] MEDS: ENOXAPARIN 40 MG/0.4 ML SQ SCH (08:00)
[2020-05-19] MEDS: INSULIN LISPRO 100 UNIT/1 ML SQ SCH ×3 (08:00→17:13)
[2020-05-19] MEDS ORDERED: PNEUMOCOCCAL VACCINE 0.5 ML IMVAC ONE (09:00)
[2020-05-19] MEDS ORDERED: D50W 25 GM/50 ML SYRINGE IV PRN (10:45)
[2020-05-19] MEDS ORDERED: GLUCAGON 1 MG/VIAL IM PRN (10:45)
[2020-05-19] MEDS ORDERED: TRIAMCINOLONE ACET 0.1% CREAM 80 GM TOP PRN (10:46)
[2020-05-19] MEDS: INSULIN -REGULAR HUMAN 50 UNIT/0.5 ML ML SQ SCH ×3 (12:23→19:31)
[2020-05-19] MEDS ORDERED: NA CHLORIDE 0.9% 1,000 ML IV SCH (14:00)
[2020-05-19] MEDS: BISACODYL 10 MG RECTAL SUPP PR PRN (14:48)
--- NOTE | 2020-05-19 15:27 | R.HP ---
HISTORY AND PHYSICAL FACILITY: [facility] ENCOUNTER DATE AND TIME: 05/19/2020 15:17 (SECURITY ANALYST) MR#: [id number] NAME KIARRA RUFFIN ADDRESS: [address] [place] [address]: [place] [id number] PHONE: DATE OF : 1950 AGE: 70 SSN# [id number] GENDER: Male DEXTERITY Right-handed MARITAL STATUS RACE Unknown race PRE-HOSPITAL LIVING SETTING 01 - Home (private home/apt. board/care, assisted living, senior living, transitional living) PRE-HOSPITAL LIVING WITH Family/Relatives ENCOUNTER PHYSICIAN: Dr. Puneet Samuels M.D. REFERRING DOCTOR: МАРИНА BO DATE OF ADMISSION: 05/18/2020 17:05 (SECURITY ANALYST) REFERRING FACILITY [facility] HOME TYPE AND DETAILS: Type of home: single family house # of levels in the residence: 1 # of steps within the residence: 0 # of steps to enter the residence: 0 ONSET DATE: 05/04/2020 PRIMARY DIAGNOSIS-RELATED SURGERIES: S/P ACB X4 BY DR. MCKEON 05/09/20 HISTORY OF PRESENT ILLNESS (HPI): Pt. is a 70 yo Right-handed male of unknown race. On 05/04/2020 he was admitted to [facility] with diagnosis MULTIVESSEL CAD. His impairment category is Cardiac 09 - Cardiac Disorders (09). Pre-morbidly, Pt. was independent/mod-I in Safety Awareness, Balance, Endurance, and Self-Care; and h e had good Sphincter Control, Transfers Control, and Social Cognition. Currently, he has deficits of Endurance, Sphincter Control, Transfers Control, Balance, and Locomotio n. Pt. is now referred to [facility] for acute in-patient rehabilitation in order to maximize patient's functional independence in activities of daily living, strength, ROM, and mobi lity. MEDICATION ALLERGIES: No Known Drug Allergies (NKDA) ENVIRONMENTAL ALLERGIES: - Substance Allergies None Known - Other Allergies None Known PAST MEDICAL HISTORY: DIABETES MELLITUS HLD HYPOTHYROIDISM JOINT PAIN MISSING L 1-3 TOES CHRONIC IMPAIRED SENSATION IN THE FEET HYPERTENSION HISTORY OF TOBACCO USE OF 20 YEARS PNEUMONIA PAST SURGICAL HISTORY: BTPASS,AORTO CORONARY SELMA/SVG ENDOSCOPIC VEIN HARVEST SAMSON SOCIAL HISTORY: - Home Living Family/Relatives REVIEW OF SYSTEMS: - Gen No Chills Fatigue No Fever - Eyes No Double Vision No itchiness - ENMT No Difficulty Swallowing - CVS Chest Discomfort No Chest Pain Fatigue No Weight Gain - Resp No Cough No Shortness of Breath - GI Continent No Abdominal Pain Constipation No Diarrhea - Continent No Kidney Pain No Painful Urination No Urinary Urgency - MSK No Joint Pain Muscle Cramps Stiffness - Skin No Itching No Rash No Suspicious Lesions - Neuro Coordination Difficulty No Difficulty with Concentration No Memory Loss No Seizures Weakness - Psych No Anxiety No Depression No HIV Exposure No Persistent Infections No Seasonal Allergies - Endo No Cold/Heat Intolerance No Excessive Hunger No Excessive Thirst No Excessive Urination PHYSICAL EXAM - Gen Alert and awake Lying in bed No apparent distress Oriented to: person, time, and place - Skin No breakdown Normacephalic - Eyes No abnormalities - ENMT No abnormalities - Neck No abnormalities - CVS RRR - Chest Mildly decreased breath sounds bilaterally. - Resp No wheezing - Abd + bowel sounds - GI Soft Deferred - No abnormalities - Ext Mild bilateral lower extremity edema. - MSK 4+/5 weakness in both lower extremities. - Neuro 4/5 strength bilaterally lower extremities. - OTHER He has marked orthostatic hypotension and uses am abdominal binder with thigh high HARMONY hose. VITAL SIGNS Temperature: 97.9 F SBP/DBP: 158/86 Pulse: 85 Resp: 16 NURSING: - Shower allowing shower ACTIVITIES OOB only with supervision QI SCORES: - Self-Care A. Eating 03-Partial/moderate assistance B. Oral hygiene 03-Partial/moderate assistance C. Toileting hygiene 03-Partial/moderate assistance E. Shower/bathe self 03-Partial/moderate assistance F. Upper body dressing 03-Partial/moderate assistance G. Lower body dressing 03-Partial/moderate assistance H. Putting on/taking off footwear 88-Not attempted due to medical condition or safety concerns - Mobility A. Roll left and right 04-Supervision or touching assistance B. Sit to lying 03-Partial/moderate assistance C. Lying to sitting on side of bed 03-Partial/moderate assistance D. Sit to stand 03-Partial/moderate assistance E. Chair/ajz-az-qgliq transfer 03-Partial/moderate assistance F. Toilet transfer 03-Partial/moderate assistance G. Car transfer 88-Not attempted due to medical condition or safety concerns I. Walk 10 feet 88-Not attempted due to medical condition or safety concerns J. Walk 50 feet with two turns 88-Not attempted due to medical condition or safety concerns K. Walk 150 feet 88-Not attempted due to medical condition or safety concerns L. Walking 10 feet on uneven surfaces 88-Not attempted due to medical condition or safety concerns M. 1 step (curb) 88-Not attempted due to medical condition or safety concerns N. 4 steps 88-Not attempted due to medical condition or safety concerns O. 12 steps 88-Not attempted due to medical condition or safety concerns P. Picking up object 88-Not attempted due to medical condition or safety concerns R. Wheel 50 feet with two turns 88-Not attempted due to medical condition or safety concerns S. Wheel 150 feet 88-Not attempted due to medical condition or safety concerns - Bladder and Bowel Bladder continence Bowel continence - Endurance Fair - Balance Fair - Safety Awareness Fair CURRENT FUNC. DEFICITS: Self-Care, Mobility, Endurance, Balance, and Safety Awareness MEDICATIONS: - Other See attached MAR (Medication Administration Record) ASSESSMENT: Pt. is a 70 yo Right-handed male of unknown race.On 05/04/[address] [facility] wi th diagnosis MULTIVESSEL CAD.His impairment category is Cardiac 09 - Cardiac Disorders (09).Pre-morb idly, Pt. was independent/mod-I in Safety Awareness, Balance, Endurance, and Self-Care; and he had go od Sphincter Control, Transfers Control, and Social Cognition.Currently, he has deficits of Endurance , Sphincter Control, Transfers Control, Balance, and Locomotion.Pt. is now referred to [facility] for acute in-patient rehabilitation in order to maximize patient's functional ind ependence in activities of daily living, strength, ROM, and mobility.- Rehab Goal REHAB PLAN: - Physical Therapy Gait dysfunction - to improve, our physical therapists will perform initial evaluation of pt's status upon admission and devise an individualized program for Gait Training, and Wheel Chair mobility Inability to transfer - to improve, our physical therapists will perform initial evaluation of pt's s tatus upon admission and devise an individualized program for Bed mobility Need for home safety evaluation - to improve, our physical therapists will perform initial evaluation of pt's status upon admission and devise an individualized program for Home Evaluation Need in caregiver upon discharge - to improve, our physical therapists will perform initial evaluatio n of pt's status upon admission and devise an individualized program for Caregiver Training New precaution - to improve, our physical therapists will perform initial evaluation of pt's status u reilly admission and devise an individualized program for Patient precaution education Edema - to improve, our physical therapists will perform initial evaluation of pt's status upon admi ssion and devise an individualized program for Elevation Training, and Lymphedema Therapy Poor balance - to improve, our physical therapists will perform initial evaluation of pt's status upo n admission and devise an individualized program for Balance Training Poor endurance - to improve, our physical therapists will perform initial evaluation of pt's status u reilly admission and devise an individualized program for Endurance Training Weakness - to improve, our physical therapists will perform initial evaluation of pt's status upon ad mission and devise an individualized program for Aquatic Therapy, Neuromuscular Reeducation, and Stre ngthening Achieving independence - to improve, our physical therapists will perform initial evaluation of pt's status upon admission and devise an individualized program for Community Reintegration Activities - Occupational Therapy Need for client care representative - to improve, our occupation therapists will perform initial evaluation of pt's s tatus upon admission and devise an individualized program for Caregiver Training Weakness - to improve, our occupation therapists will perform initial evaluation of pt's status upon admission and devise an individualized program for Aquatic Therapy, Balance, Endurance, UE ROM, and U E strengthening MEDICAL PLAN: - Diet Type Start Regular - Diet - Liquid Texture Start Regular - Tube Feed Start N/A - Other See attached MAR (Medication Administration Record) - Diet - Solid Texture Regular - Shower shower DISCHARGE PLAN: - Estimated Length of Stay (days) 10. - Consensus on plan Discharge plan has been discussed with primary caregiver. Patient/Family is in agreement with the miquel n. Primary caregiver is in agreement with the plan. - Patient/Family Goals Return home independently. - Planned Living Setting Upon Discharge Home, to live with Family/Relatives. Transitional Living. SIGNATURE PANEL: (SECURITY ANALYST)
--- NOTE | 2020-05-19 15:29 | PAPE ---
POST ADMISSION PHYSICIAN EVALUATION PATIENT: [facility] MR# [id number] REFERRING DOCTOR МАРИНА BO EVALUATION DATE AND TIME 05/19/2020 15:27 (COSMETOLOGY EDUCATOR) NAME KIARRA RUFFIN DATE OF 1950 AGE 70 PHONE SSN# [id number] GENDER male EVALUATING PHYSICIAN Dr. Puneet Samuels M.D. ADMISSION DIAGNOSIS: MULTIVESSEL CAD ONSET DATE 05/04/2020 POST-ADMISSION FUNCTIONAL/MEDICAL STATUS: - Bladder Same accident frequency: Ind - No accidents in the past 7 days - Bowel Same accident frequency: Ind - No accidents in the past 7 days - Walking Same score based on distance walked: 0(N/A) - Wheelchair Same score based on distance traveled: 0(N/A) STATUS CHANGE EVALUATION: No change in Functional or Medical Status is identified compared with Pre-Admission screening. PATIENT NEEDS CLOSE MEDICAL SUPERVISION BY A REHABILITATION PHYSICIAN FOR: Coordination of Treatment Team PATIENT REQUIRES 24X7 REHAB NURSING FOR MEDICAL AND FUNCTIONAL MGT. OF THE FOLLOWING DEFICITS: Disease Management Medication Management Patient/Family Education Providing Safe Environment PATIENT REQUIRES INTENSIVE, COORDINATED INTERDISCIPLINARY APPROACH TO REHAB: Arranging Home Equipment/Services Discharge Planning Family Intervention/Training Manager Pacu/Case Management LIST OF IDENTIFIED AND POTENTIAL PROBLEMS: Alteration in leisure activities Bladder, Incontinence Bowel, Incontinence Infection, Actual or Potential Mobility Impaired Pain, Alteration in Comfort Self Care Deficit Skin Integrity, Actual or Potential Urinary Tract Infection (UTI), Actual or Potential PATIENT COULD BE AT RISK FOR COMPLICATIONS FROM ADVERSE MEDICAL CONDITIONS DUE TO HIS/HER COMORBIDITI ES AND THE RIGORS OF THE INTENSIVE REHABILLITATION PROGRAM. METHODS OR INTERVENTIONS TO AVOID COMPLIC ATIONS INCLUDE: - Infection Clinical staff to assess and manage the signs and symptoms of infection including fever, redness, war mth, etc. - Urinary Tract Infection - Falls Patient will be evaluated for Fall Precautions and will be placed on Fall Precautions as indicated pe r protocol. - Skin Breakdown Nursing will assess skin daily using assessment tool and will place on Skin Breakdown Precautions as indicated per protocol. - Pain Clinical staff may employ non-medication methods such as massage, distraction, decrease stimulus, etc . as needed. Clinical staff will assess patient's pain level every shift per protocol to assess and e nsure pain management effectiveness. Medications will be given and the pain level re-assessed. PRELIMINARY PLAN OF CARE: - Physical Therapy Patient needs Physical Therapy for a daily minimum of 1.5 hours at least 5 out of 7 days, to improve: Mobility, Strengthening, Transfers, Stretching, ROM, Endurance, Ability to manage stairs, Gait, and Balance. - Speech Therapy Patient needs Speech Therapy for a daily minimum of 0.5 hours at least 5 out of 7 days, to improve: S wallowing, Cognition, Language Skills, and Compensatory Strategies. - Rehabilitation Nursing Patient requires 24x7 Rehabilitation Nursing for: Pain Issues, Identifying and preventing risk factor s, Monitoring and reporting current medical conditions, Assisting with ambulation and transfer, Saniya ting with all ADL-s, Teaching patients about disease process and medications, Family teaching, Provid ing safe environment, Bowel and Bladder Issues, Skin Integrity, and Medication Management. Patient needs Manager Pacu and/or Case Management for: Discharge Planning, Arranging Home Equipmen t or Services, and Family Interventions. - Dietary and Nutrition Services Patient needs Dietary and Nutrition Services for: Adequate Nutrition, Nutritional Supplements, and Nu tritional Education. - Occupational Therapy Patient needs Occupational Therapy for a daily minimum of 1.5 hours at least 5 out of 7 days, to impr ove Activities of Daily Living, including: Eating, Grooming, Bathing, Dressing, Toileting, Toilet Tra nsfers, Community Reintegration, Higher functional activities, Adaptive Equipment, Splinting, Househo ld Tasks, and Other activities as determined. QI SCORES: - Self-Care A. Eating 03-Partial/moderate assistance B. Oral hygiene 03-Partial/moderate assistance C. Toileting hygiene 03-Partial/moderate assistance E. Shower/bathe self 03-Partial/moderate assistance F. Upper body dressing 03-Partial/moderate assistance G. Lower body dressing 03-Partial/moderate assistance H. Putting on/taking off footwear 88-Not attempted due to medical condition or safety concerns - Mobility A. Roll left and right 04-Supervision or touching assistance B. Sit to lying 03-Partial/moderate assistance C. Lying to sitting on side of bed 03-Partial/moderate assistance D. Sit to stand 03-Partial/moderate assistance E. Chair/tcz-nm-ndlso transfer 03-Partial/moderate assistance F. Toilet transfer 03-Partial/moderate assistance G. Car transfer 88-Not attempted due to medical condition or safety concerns I. Walk 10 feet 88-Not attempted due to medical condition or safety concerns J. Walk 50 feet with two turns 88-Not attempted due to medical condition or safety concerns K. Walk 150 feet 88-Not attempted due to medical condition or safety concerns L. Walking 10 feet on uneven surfaces 88-Not attempted due to medical condition or safety concerns M. 1 step (curb) 88-Not attempted due to medical condition or safety concerns N. 4 steps 88-Not attempted due to medical condition or safety concerns O. 12 steps 88-Not attempted due to medical condition or safety concerns P. Picking up object 88-Not attempted due to medical condition or safety concerns R. Wheel 50 feet with two turns 88-Not attempted due to medical condition or safety concerns S. Wheel 150 feet 88-Not attempted due to medical condition or safety concerns - Bladder and Bowel Bladder continence Bowel continence - Endurance Fair - Balance Fair - Safety Awareness Fair POTENTIAL FUNCTIONAL GOALS FOR PATIENT TO ACHIEVE BY DISCHARGE: - Safety Precaution Patient will remain free from falls or injury at time of discharge. - Bed Mobility Patient will perform bed mobility at 4-Donnell level of assistance. - Transfers Patient will complete transfers from bed to chair at 4-Donnell level of assistance. - Mobility Patient will ambulate 150 ft with 4-Donnell level of assistance with RW. PATIENT REHAB POTENTIAL Александр RUFFIN is able and expected to receive 3 hours of individualized therapy daily on at least 5 of dwight 7 days Александр RUFFIN's prognosis for significant practical improvement within a reasonable period of time appear s Good Expected level of measurable improvement will be of a practical value to Александр RUFFIN's functional capac ity or adaptations to impairments Has a viable Discharge Plan Medically appropriate; condition is sufficiently stable to participate in intensive rehab program DISCHARGE PLAN: - Estimated Length of Stay (days) 10. - Consensus on plan Discharge plan has been discussed with primary caregiver. Patient/Family is in agreement with the miquel n. Primary caregiver is in agreement with the plan. - Patient/Family Goals Return home independently. - Planned Living Setting Upon Discharge Home, to live with Family/Relatives. Transitional Living. CONCLUSION ON REHABILITATION NECESSITY: I have evaluated patient's pre-admission functional status and, comparing it to the patient's post-ad mission functional status now, I conclude that the pre-admission assessment was accurate. Patient's c ondition on admission supports the medical necessity of admission to IR[facility]. It is safe to proceed with patient's therapy program. SIGNATURE PANEL: (COSMETOLOGY EDUCATOR)
[2020-05-19] MEDS: SODIUM CHLORIDE 1 GM TAB PO SCH (17:05)
[2020-05-19] MEDS: JUVEN PACKET PO SCH (19:27)
[2020-05-19] MEDS: MELATONIN 3 MG TABLET PO SCH (19:31)
[2020-05-19] MEDS: ATORVASTATIN 80 MG TAB PO SCH (19:31)
[2020-05-19] MEDS: INSULIN GLARGINE 100 UNITS/ML SQ SCH (19:38)
[2020-05-19] MEDS: DOCUSATE NA/SENNA CONC 1 TAB PO SCH (19:38)
[2020-05-20] MEDS: HYDROCODONE/APAP 5/325 MG TAB PO PRN (04:04)
[2020-05-20 06:20] LABS: Basophils % 1.4 % (0-1.3); Hematocrit 29.8 % (39.6-49.0); Lymphocytes % 16.4 % (15.3-44.8); MPV 7.4 fL (7.6-11.3); RBC Red Blood Cell Count 3.24 M/uL (4.33-5.43)
[2020-05-20] MEDS: LIOTHYRONINE SOD 5 MCG TAB PO SCH (06:35)
[2020-05-20] MEDS: ENOXAPARIN 40 MG/0.4 ML SQ SCH (06:35)
[2020-05-20] MEDS: LEVOTHYROXINE SOD 0.05 MG TABLET PO SCH (06:35)
[2020-05-20 06:43] LABS: BUN Blood Urea Nitrogen 16 mg/dL (7-18); Bicarbonate 31 mmol/L (21-32); Glucose Level 183 mg/dL (74-106); Magnesium 1.9 mg/dL (1.8-2.4); Potassium 4.3 mmol/L (3.5-5.1); Sodium Level 138 mmol/L (136-145)
[2020-05-20] MEDS: POLYETHYL GLY 3350 17 GM/DOSE PO SCH (08:00)
[2020-05-20] MEDS: JUVEN PACKET PO SCH ×2 (08:00→20:00)
[2020-05-20] MEDS: SODIUM CHLORIDE 1 GM TAB PO SCH ×2 (08:06→17:07)
[2020-05-20] MEDS: FLUDROCORTISONE 0.1 MG TAB PO SCH (08:07)
[2020-05-20] MEDS: MIDODRINE HCL 5 MG TABLET PO SCH ×3 (08:07→17:07)
[2020-05-20] MEDS: GABAPENTIN 300 MG CAP PO SCH ×3 (08:07→20:11)
[2020-05-20] MEDS: ASPIRIN 81 MG CHEWABLE TABLET PO SCH (08:07)
[2020-05-20] MEDS: INSULIN LISPRO 100 UNIT/1 ML SQ SCH ×3 (08:11→17:06)
[2020-05-20] MEDS: INSULIN -REGULAR HUMAN 50 UNIT/0.5 ML ML SQ SCH ×4 (08:12→20:11)
[2020-05-20] MEDS ORDERED: ACETAMINOPHEN 500 MG TAB ONE (09:40)
[2020-05-20] MEDS: TRIAMCINOLONE ACET 0.1% CREAM 80 GM TOP SCH (20:00)
[2020-05-20] MEDS: MELATONIN 3 MG TABLET PO SCH (20:11)
[2020-05-20] MEDS: DOCUSATE NA/SENNA CONC 1 TAB PO SCH (20:11)
[2020-05-20] MEDS: ATORVASTATIN 80 MG TAB PO SCH (20:11)
[2020-05-20] MEDS: INSULIN GLARGINE 100 UNITS/ML SQ SCH (20:12)
[2020-05-21] MEDS: LEVOTHYROXINE SOD 0.05 MG TABLET PO SCH (06:55)
[2020-05-21] MEDS: LIOTHYRONINE SOD 5 MCG TAB PO SCH (06:55)
[2020-05-21] MEDS: SODIUM CHLORIDE 1 GM TAB PO SCH ×2 (07:32→17:21)
[2020-05-21] MEDS: MIDODRINE HCL 5 MG TABLET PO SCH ×3 (07:32→17:21)
[2020-05-21] MEDS: GABAPENTIN 300 MG CAP PO SCH ×3 (07:33→20:04)
[2020-05-21] MEDS: ACETAMINOPHEN 500 MG TAB PO PRN (07:33)
[2020-05-21] MEDS: FLUDROCORTISONE 0.1 MG TAB PO SCH ×2 (07:33→10:52)
[2020-05-21] MEDS: ASPIRIN 81 MG CHEWABLE TABLET PO SCH (07:33)
[2020-05-21] MEDS: INSULIN -REGULAR HUMAN 50 UNIT/0.5 ML ML SQ SCH ×4 (07:36→20:05)
[2020-05-21] MEDS: INSULIN LISPRO 100 UNIT/1 ML SQ SCH ×3 (07:36→17:52)
[2020-05-21] MEDS: JUVEN PACKET PO SCH (07:37)
[2020-05-21] MEDS: POLYETHYL GLY 3350 17 GM/DOSE PO SCH (07:37)
[2020-05-21] MEDS: ENOXAPARIN 40 MG/0.4 ML SQ SCH (07:42)
--- NOTE | 2020-05-21 09:52 | P.RH.PN ---
Estimated Length of Stay: 15 Expected Discharge Date: 05/12/20 Discharge Disposition Plan: Home Family Support: Yes Longterm Goal: Mobility, Transfers, Self Care Vital Signs: Last Vital Signs Temp 97.7 F 05/21/20 07:21 Pulse 80 05/21/20 07:21 Resp 16 05/21/20 07:21 BP 153/73 H 05/21/20 07:21 Pulse Ox 95 05/21/20 07:21 Laboratory: Laboratory Last Values WBC 6.3 K/uL (4.3-10.9) D 05/20/20 05:59 RBC 3.24 M/uL (4.33-5.43) L 05/20/20 05:59 Hgb 10.4 g/dL (13.6-17.9) L 05/20/20 05:59 Hct 29.8 % (39.6-49.0) L 05/20/20 05:59 MCV 92.0 fL (80-100) 05/20/20 05:59 MCH 32.0 pg (27.0-35.0) 05/20/20 05:59 MCHC 34.8 g/dL (32.0-36.0) 05/20/20 05:59 RDW 14.5 % (12.1-15.2) 05/20/20 05:59 Plt Count 269 K/uL (152-406) 05/20/20 05:59 MPV 7.4 fL (7.6-11.3) L 05/20/20 05:59 Neutrophils % 70.3 % (41.7-73.7) 05/20/20 05:59 Lymphocytes % 16.4 % (15.3-44.8) 05/20/20 05:59 Monocytes % 9.1 % (3.3-12.3) 05/20/20 05:59 Eosinophils % 2.8 % (0-4.4) 05/20/20 05:59 Basophils % 1.4 % (0-1.3) H 05/20/20 05:59 Absolute Neutrophils 4.5 K/uL (1.8-8.0) 05/20/20 05:59 Absolute Lymphocytes 1.0 K/uL (0.7-4.9) 05/20/20 05:59 Absolute Monocytes 0.6 K/uL (0.1-1.3) 05/20/20 05:59 Absolute Eosinophils 0.2 K/uL (0-0.5) 05/20/20 05:59 Absolute Basophils 0.1 K/uL (0-0.5) 05/20/20 05:59 Sodium 138 mmol/L (136-145) 05/20/20 05:59 Potassium 4.3 mmol/L (3.5-5.1) 05/20/20 05:59 Chloride 102 mmol/L (98-107) 05/20/20 05:59 Carbon Dioxide 31 mmol/L (21-32) 05/20/20 05:59 BUN 16 mg/dL (7-18) 05/20/20 05:59 Creatinine 0.77 mg/dL (0.55-1.3) 05/20/20 05:59 Estimated GFR > 90 mL/min (=/>90) 05/20/20 05:59 Glucose 183 mg/dL (74-106) H 05/20/20 05:59 POC Glucose 230 mg/dL (65-120) H 05/21/20 06:49 Calcium 8.2 mg/dL (8.5-10.1) L 05/20/20 05:59 Magnesium 1.9 mg/dL (1.8-2.4) 05/20/20 05:59 Albumin 2.0 g/dL (3.4-5.0) L 05/20/20 05:59 Prealbumin 8.0 mg/dL (20-40) L 05/20/20 05:59 Urine Color Yellow 05/18/20 20:10 Urine Appearance Cloudy 05/18/20 20:10 Urine pH 7.0 (5.0-7.0) 05/18/20 20:10 Ur Specific [place] 1.025 (1.005-1.030) 05/18/20 20:10 Glucose (UA)(Auto) 3+ (NEG) H 05/18/20 20:10 Urine Ketones Negative (NEG) 05/18/20 20:10 Urine Blood Trace (NEG) H 05/18/20 20:10 Urine Nitrite Negative (NEG) 05/18/20 20:10 Urine Bilirubin Negative (NEG) 05/18/20 20:10 Urine Urobilinogen 1.0 mg/dL (0.2-1.0) 05/18/20 20:10 Ur Leukocyte Esterase 2+ (NEG) H 05/18/20 20:10 Urine RBC <5 /HPF (NONE SEEN) 05/18/20 20:10 Urine WBC >50 /HPF (<5) H 05/18/20 20:10 Ur Squamous Epith Cells WOOD GOUGER 05/18/20 20:10 Urine Bacteria 20-50 /HPF (NONE SEEN) H 05/18/20 20:10 Urine Yeast Few (NONE SEEN) 05/18/20 20:10 Ur Yeast w Hyphae Present 05/18/20 20:10 Urine Yeast (Budding) Present (NONE SEEN) H 05/18/20 20:10 Urine Culture Reflexed Not needed 05/18/20 20:10 Urine Total Protein 1+ (NEG) H 05/18/20 20:10 SARS-CoV-2 RNA (RT-PCR) Negative (NEGATIVE) 05/18/20 18:15 Weight: 163 lb 3.2 oz Wound Present: No Closed Surgical Incision Present: Yes Negative Pressure Wound Therapy Present: No Physician Update: He has significant autonomic dysfunction which is not helped by high dosage midodrin. He will require a reclining wheelchair for long term care social worker use. Will contact cardiology for help. Functional Improvement: pt severely limited by hypotension. Summary: Patient's care plan and long term care social worker goals have been reviewed and revised as necessary. Please see the Rehabilitation Signature page for all necessary signatures.
[2020-05-21] MEDS: TRIAMCINOLONE ACET 0.1% CREAM 80 GM TOP SCH ×2 (12:21→20:30)
[2020-05-21] MEDS: DOCUSATE NA/SENNA CONC 1 TAB PO SCH (20:04)
[2020-05-21] MEDS: ATORVASTATIN 80 MG TAB PO SCH (20:04)
[2020-05-21] MEDS: MELATONIN 3 MG TABLET PO SCH (20:04)
[2020-05-21] MEDS: HYDROCODONE/APAP 5/325 MG TAB PO PRN (20:04)
[2020-05-21] MEDS: INSULIN GLARGINE 100 UNITS/ML SQ SCH (20:05)
[2020-05-22 05:42] VITALS: BMI 22.5
[2020-05-22] MEDS: HYDROCODONE/APAP 5/325 MG TAB PO PRN ×3 (06:44→21:16)
[2020-05-22] MEDS: LIOTHYRONINE SOD 5 MCG TAB PO SCH (06:45)
[2020-05-22] MEDS: LEVOTHYROXINE SOD 0.05 MG TABLET PO SCH (06:45)
[2020-05-22] MEDS: ENOXAPARIN 40 MG/0.4 ML SQ SCH (07:28)
[2020-05-22] MEDS: TRIAMCINOLONE ACET 0.1% CREAM 80 GM TOP SCH ×2 (07:28→20:00)
[2020-05-22] MEDS: INSULIN LISPRO 100 UNIT/1 ML SQ SCH ×3 (08:29→16:50)
[2020-05-22] MEDS: POLYETHYL GLY 3350 17 GM/DOSE PO SCH (08:30)
[2020-05-22] MEDS: SODIUM CHLORIDE 1 GM TAB PO SCH ×2 (08:30→16:50)
[2020-05-22] MEDS: INSULIN -REGULAR HUMAN 50 UNIT/0.5 ML ML SQ SCH ×4 (08:30→21:00)
[2020-05-22] MEDS: FLUDROCORTISONE 0.1 MG TAB PO SCH (08:31)
[2020-05-22] MEDS: ASPIRIN 81 MG CHEWABLE TABLET PO SCH (08:31)
[2020-05-22] MEDS: GABAPENTIN 300 MG CAP PO SCH ×3 (08:31→21:17)
[2020-05-22] MEDS: MIDODRINE HCL 5 MG TABLET PO SCH ×3 (08:31→16:50)
[2020-05-22] MEDS: BISACODYL 10 MG RECTAL SUPP PR PRN (13:32)
[2020-05-22] MEDS ORDERED: LACTULOSE 20 GM/30 ML UCUP PO PRN (14:51)
[2020-05-22] MEDS ORDERED: MAGNESIUM CITRATE 300 ML BOT PO PRN (14:51)
[2020-05-22] MEDS: INSULIN GLARGINE 100 UNITS/ML SQ SCH (21:00)
--- NOTE | 2020-05-22 21:04 | R.PN ---
PROGRESS NOTES ENCOUNTER DATE AND TIME: 05/22/2020 20:56 (CONVERTING TECHNICIAN) NAME KIARRA RUFFIN DATE OF : 1950 DATE OF ADMISSION: 05/18/2020 17:05 (CONVERTING TECHNICIAN) MULTIVESSEL CADCHIEF COMPLAINT: Debility and multivessel cardiac disease. SUBJECTIVE: Pt denied any depression. Pt denied any Shortness of Breath. He has significant autonomic dysfunction with SBP lying at 150-170, sitting SBP 90s and standing SBP 80s. However, he self propelled a wheelchair 100' with moderate assistance. WBC 6.3, Hgb 10.4, glucose 89 to 199. UA appears positive for UTI with >100,000 CFU. Sensitivities pe nding. Will start cranberry and push fluids. VITAL SIGNS Temperature: 97.0 F SBP/DBP: 106/63 Pulse: 82 Resp: 16 MEDICATION ALLERGIES: No Known Drug Allergies (NKDA) ENVIRONMENTAL ALLERGIES: - Substance Allergies None Known - Other Allergies None Known NURSING: - Shower allowing shower ACTIVITIES OOB only with supervision THERAPIES: - Dietary and Nutrition Adequate Nutrition. Nutritional Education. Nutritional Supplements. PHYSICAL EXAM - Gen Alert and awake Lying in bed No apparent distress Oriented to: person, time, and place - Skin No breakdown Normacephalic - Eyes No abnormalities - ENMT No abnormalities - Neck No abnormalities - CVS RRR - Chest Mildly decreased breath sounds bilaterally. - Resp No wheezing - Abd + bowel sounds - GI Soft Deferred - No abnormalities - Ext Mild bilateral lower extremity edema. - MSK 4+/5 weakness in both lower extremities. - Neuro 4/5 strength bilaterally lower extremities. - OTHER He has marked orthostatic hypotension and uses am abdominal binder with thigh high HARMONY hose. ASSESSMENT: Pt. is a 70 yo Right-handed male of unknown race.On 05/04/2020 he was admitted to [facility] diagnosis MULTIVESSEL CAD.His impairment category is Cardiac 09 - Cardiac Disorders ().Pre-morb idly, Pt. was independent/mod-I in Safety Awareness, Balance, Endurance, and Self-Care; and he had go od Sphincter Control, Transfers Control, and Social Cognition.Currently, he has deficits of Endurance , Sphincter Control, Transfers Control, Balance, and Locomotion.Pt. is now referred to [facility] for acute in-patient rehabilitation in order to maximize patient's functional ind ependence in activities of daily living, strength, ROM, and mobility.MDM/PLAN: - Physical Therapy Gait dysfunction - to improve, our physical therapists will perform initial evaluation of pt's statu s upon admission and devise an individualized program for Gait Training, and Wheel Chair mobility Inability to transfer - to improve, our physical therapists will perform initial evaluation of pt's status upon admission and devise an individualized program for Bed mobility Need for home safety evaluation - to improve, our physical therapists will perform initial evaluatio n of pt's status upon admission and devise an individualized program for Home Evaluation Need in caregiver upon discharge - to improve, our physical therapists will perform initial evaluati on of pt's status upon admission and devise an individualized program for Caregiver Training New precaution - to improve, our physical therapists will perform initial evaluation of pt's status upon admission and devise an individualized program for Patient precaution education Edema - to improve, our physical therapists will perform initial evaluation of pt's status upon admis georgette and devise an individualized program for Elevation Training, and Lymphedema Therapy Poor balance - to improve, our physical therapists will perform initial evaluation of pt's status up on admission and devise an individualized program for Balance Training Poor endurance - to improve, our physical therapists will perform initial evaluation of pt's status upon admission and devise an individualized program for Endurance Training Weakness - to improve, our physical therapists will perform initial evaluation of pt's status upon a dmission and devise an individualized program for Aquatic Therapy, Neuromuscular Reeducation, and Str engthening Achieving independence - to improve, our physical therapists will perform initial evaluation of pt's status upon admission and devise an individualized program for Community Reintegration Activities - Occupational Therapy Need for critical care transport nurse - to improve, our occupation therapists will perform initial evaluation of pt's status upon admission and devise an individualized program for Caregiver Training Weakness - to improve, our occupation therapists will perform initial evaluation of pt's status upon admission and devise an individualized program for Aquatic Therapy, Balance, Endurance, UE ROM, and UE strengthening - Other See attached MAR (Medication Administration Record) - Diet Type Continue Regular - Diet - Liquid Texture Continue Regular - Tube Feed Continue N/A - Diet - Solid Texture Continue Regular - Shower allowing shower FUNCTIONAL STATUS: UPDATED AT WEEKLY TEAM CONFERENCE - Bladder Same accident frequency: 7-Ind - No accidents in the past 7 days - Bowel Same accident frequency: 7-Ind - No accidents in the past 7 days - Walking Same score based on distance walked: 0(N/A) - Wheelchair Same score based on distance traveled: 0(N/A) FUNCTIONAL STATUS: - Self-Care A. Eating Don B. Grooming Don C. Bathing modA D. Dressing - Upper Donnell E. Dressing - Lower modA F. Toileting modA - Sphincter Control G. Bladder control sup H. Bowel control Don - Transfers Control I. Bed/Chair/Wheelchair modA J. Toilet modA K. Tub/Shower modA - Locomotion L. Walk/Wheelchair (B) modA M. Stairs ADNO - Communication N. Comprehension (B) Don O. Expression (B) Ind - Social Cognition P. Social Interaction Ind Q. Problem Solving sup R. Memory Don - Endurance Fair - Balance Poor - Safety Awareness Fair QI SCORES: - Self-Care A. Eating 03-Partial/moderate assistance B. Oral hygiene 03-Partial/moderate assistance C. Toileting hygiene 03-Partial/moderate assistance E. Shower/bathe self 03-Partial/moderate assistance F. Upper body dressing 03-Partial/moderate assistance G. Lower body dressing 03-Partial/moderate assistance H. Putting on/taking off footwear 88-Not attempted due to medical condition or safety concerns - Mobility A. Roll left and right 04-Supervision or touching assistance B. Sit to lying 03-Partial/moderate assistance C. Lying to sitting on side of bed 03-Partial/moderate assistance D. Sit to stand 03-Partial/moderate assistance E. Chair/zmf-dh-rbvhe transfer 03-Partial/moderate assistance F. Toilet transfer 03-Partial/moderate assistance G. Car transfer 88-Not attempted due to medical condition or safety concerns I. Walk 10 feet 88-Not attempted due to medical condition or safety concerns J. Walk 50 feet with two turns 88-Not attempted due to medical condition or safety concerns K. Walk 150 feet 88-Not attempted due to medical condition or safety concerns L. Walking 10 feet on uneven surfaces 88-Not attempted due to medical condition or safety concerns M. 1 step (curb) 88-Not attempted due to medical condition or safety concerns N. 4 steps 88-Not attempted due to medical condition or safety concerns O. 12 steps 88-Not attempted due to medical condition or safety concerns P. Picking up object 88-Not attempted due to medical condition or safety concerns R. Wheel 50 feet with two turns 88-Not attempted due to medical condition or safety concerns S. Wheel 150 feet 88-Not attempted due to medical condition or safety concerns - Bladder and Bowel Bladder continence Bowel continence - Endurance Fair - Balance Fair - Safety Awareness Fair CURRENT [facility]. DEFICITS: Self-Care, Mobility, Endurance, Balance, and Safety Awareness SIGNATURE PANEL: (CONVERTING TECHNICIAN)
[2020-05-22] MEDS: DOCUSATE NA/SENNA CONC 1 TAB PO SCH (21:16)
[2020-05-22] MEDS: CRANBERRY FRUIT EXTRACT 200 MG CAP PO SCH (21:16)
[2020-05-22] MEDS: ATORVASTATIN 80 MG TAB PO SCH (21:17)
[2020-05-22] MEDS: MELATONIN 3 MG TABLET PO SCH (21:17)
[2020-05-23] MEDS: HYDROCODONE/APAP 5/325 MG TAB PO PRN ×2 (00:22→04:03)
[2020-05-23] MEDS ORDERED: MORPHINE 2 MG/ML SYR IV ONE (03:37)
[2020-05-23] MEDS: GABAPENTIN 300 MG CAP PO SCH ×2 (03:39→09:00)
[2020-05-23] MEDS: LEVOTHYROXINE SOD 0.05 MG TABLET PO SCH (07:00)
[2020-05-23] MEDS: LIOTHYRONINE SOD 5 MCG TAB PO SCH (07:00)
[2020-05-23] MEDS: ENOXAPARIN 40 MG/0.4 ML SQ SCH ×2 (08:00→09:00)
[2020-05-23] MEDS: POLYETHYL GLY 3350 17 GM/DOSE PO SCH (08:00)
[2020-05-23] MEDS: ASPIRIN 81 MG CHEWABLE TABLET PO SCH (09:01)
[2020-05-23] MEDS: FLUDROCORTISONE 0.1 MG TAB PO SCH (09:02)
[2020-05-23] MEDS: SODIUM CHLORIDE 1 GM TAB PO SCH ×2 (09:02→16:31)
[2020-05-23] MEDS: MIDODRINE HCL 5 MG TABLET PO SCH ×3 (09:02→16:31)
[2020-05-23] MEDS: CRANBERRY FRUIT EXTRACT 200 MG CAP PO SCH ×2 (09:02→20:03)
[2020-05-23] MEDS: INSULIN -REGULAR HUMAN 50 UNIT/0.5 ML ML SQ SCH ×4 (09:03→20:08)
[2020-05-23] MEDS: INSULIN LISPRO 100 UNIT/1 ML SQ SCH ×3 (09:04→17:20)
[2020-05-23] MEDS: TRIAMCINOLONE ACET 0.1% CREAM 80 GM TOP SCH ×2 (09:04→20:00)
[2020-05-23] MEDS: GABAPENTIN 400 MG CAP PO SCH ×2 (10:32→20:03)
[2020-05-23] MEDS: APIXABAN 2.5 MG TABLET PO SCH ×2 (10:32→20:05)
[2020-05-23] MEDS: NYSTATIN PWDR 100000 UNIT/GM TOP SCH (20:00)
[2020-05-23] MEDS: DOCUSATE NA/SENNA CONC 1 TAB PO SCH (20:03)
[2020-05-23] MEDS: ATORVASTATIN 80 MG TAB PO SCH (20:03)
[2020-05-23] MEDS: MELATONIN 3 MG TABLET PO SCH (20:03)
[2020-05-23] MEDS: INSULIN GLARGINE 100 UNITS/ML SQ SCH (20:07)
[2020-05-24] MEDS: INSULIN -REGULAR HUMAN 50 UNIT/0.5 ML ML SQ SCH ×4 (07:30→21:00)
[2020-05-24] MEDS: INSULIN LISPRO 100 UNIT/1 ML SQ SCH ×3 (08:00→16:51)
[2020-05-24] MEDS: POLYETHYL GLY 3350 17 GM/DOSE PO SCH (08:00)
[2020-05-24] MEDS: GABAPENTIN 400 MG CAP PO SCH ×2 (08:20→21:03)
[2020-05-24] MEDS: MIDODRINE HCL 5 MG TABLET PO SCH ×3 (08:20→16:50)
[2020-05-24] MEDS: APIXABAN 2.5 MG TABLET PO SCH ×2 (08:20→21:02)
[2020-05-24] MEDS: LIOTHYRONINE SOD 5 MCG TAB PO SCH (08:20)
[2020-05-24] MEDS: SODIUM CHLORIDE 1 GM TAB PO SCH ×2 (08:20→16:50)
[2020-05-24] MEDS: FLUDROCORTISONE 0.1 MG TAB PO SCH (08:21)
[2020-05-24] MEDS: CRANBERRY FRUIT EXTRACT 200 MG CAP PO SCH ×2 (08:21→21:02)
[2020-05-24] MEDS: ASPIRIN 81 MG CHEWABLE TABLET PO SCH (08:22)
[2020-05-24] MEDS: NYSTATIN PWDR 100000 UNIT/GM TOP SCH ×2 (08:26→21:02)
[2020-05-24] MEDS: LEVOTHYROXINE SOD 0.05 MG TABLET PO SCH (08:26)
[2020-05-24] MEDS: TRIAMCINOLONE ACET 0.1% CREAM 80 GM TOP SCH ×2 (08:26→21:02)
--- NOTE | 2020-05-24 18:01 | R.PN ---
PROGRESS NOTES ENCOUNTER DATE AND TIME: 05/24/2020 17:56 (COLLEGE ARCHIVIST) NAME KIARRA RUFFIN DATE OF : 1950 DATE OF ADMISSION: 05/18/2020 17:05 (COLLEGE ARCHIVIST) MULTIVESSEL CADCHIEF COMPLAINT: Debility and multivessel cardiac disease. SUBJECTIVE: Pt denied any depression. Pt denied any Shortness of Breath. He has significant autonomic dysfunction with SBP lying at 150-170, sitting SBP 90s and standing SBP 80s. However, he self propelled a wheelchair 100' with moderate assistance. WBC 6.3, Hgb 10.4, glucose 152 to 212. UA appears positive for UTI with >100,000 CFU. Sensitivities s how mixed craig and 2 + yeast. Cranberry pills and push fluids. VITAL SIGNS Temperature: 98.8 F SBP/DBP: 163/72 Pulse: 78 Resp: 16 MEDICATION ALLERGIES: No Known Drug Allergies (NKDA) ENVIRONMENTAL ALLERGIES: - Substance Allergies None Known - Other Allergies None Known NURSING: - Shower allowing shower ACTIVITIES OOB only with supervision THERAPIES: - Dietary and Nutrition Adequate Nutrition. Nutritional Education. Nutritional Supplements. PHYSICAL EXAM - Gen Alert and awake Lying in bed No apparent distress Oriented to: person, time, and place - Skin No breakdown Normacephalic - Eyes No abnormalities - ENMT No abnormalities - Neck No abnormalities - CVS RRR - Chest Mildly decreased breath sounds bilaterally. - Resp No wheezing - Abd + bowel sounds - GI Soft Deferred - No abnormalities - Ext Mild bilateral lower extremity edema. - MSK 4+/5 weakness in both lower extremities. - Neuro 4/5 strength bilaterally lower extremities. - OTHER He has marked orthostatic hypotension and uses am abdominal binder with thigh high HARMONY hose. ASSESSMENT: Pt. is a 70 yo Right-handed male of unknown race.On 05/04/[address] [facility] wi th diagnosis MULTIVESSEL CAD.His impairment category is Cardiac 09 - Cardiac Disorders ().Pre-morb idly, Pt. was independent/mod-I in Safety Awareness, Balance, Endurance, and Self-Care; and he had go od Sphincter Control, Transfers Control, and Social Cognition.Currently, he has deficits of Endurance , Sphincter Control, Transfers Control, Balance, and Locomotion.Pt. is now referred to [facility] for acute in-patient rehabilitation in order to maximize patient's functional ind ependence in activities of daily living, strength, ROM, and mobility.MDM/PLAN: - Physical Therapy Gait dysfunction - to improve, our physical therapists will perform initial evaluation of pt's statu s upon admission and devise an individualized program for Gait Training, and Wheel Chair mobility Inability to transfer - to improve, our physical therapists will perform initial evaluation of pt's status upon admission and devise an individualized program for Bed mobility Need for home safety evaluation - to improve, our physical therapists will perform initial evaluatio n of pt's status upon admission and devise an individualized program for Home Evaluation Need in caregiver upon discharge - to improve, our physical therapists will perform initial evaluati on of pt's status upon admission and devise an individualized program for Caregiver Training New precaution - to improve, our physical therapists will perform initial evaluation of pt's status upon admission and devise an individualized program for Patient precaution education Edema - to improve, our physical therapists will perform initial evaluation of pt's status upon admi ssion and devise an individualized program for Elevation Training, and Lymphedema Therapy Poor balance - to improve, our physical therapists will perform initial evaluation of pt's status up on admission and devise an individualized program for Balance Training Poor endurance - to improve, our physical therapists will perform initial evaluation of pt's status upon admission and devise an individualized program for Endurance Training Weakness - to improve, our physical therapists will perform initial evaluation of pt's status upon a dmission and devise an individualized program for Aquatic Therapy, Neuromuscular Reeducation, and Str engthening Achieving independence - to improve, our physical therapists will perform initial evaluation of pt's status upon admission and devise an individualized program for Community Reintegration Activities - Occupational Therapy Need for care professionals - to improve, our occupation therapists will perform initial evaluation of pt's status upon admission and devise an individualized program for Caregiver Training Weakness - to improve, our occupation therapists will perform initial evaluation of pt's status upon admission and devise an individualized program for Aquatic Therapy, Balance, Endurance, UE ROM, and UE strengthening - Other See attached MAR (Medication Administration Record) - Diet Type Continue Regular - Diet - Liquid Texture Continue Regular - Tube Feed Continue N/A - Diet - Solid Texture Continue Regular - Shower allowing shower FUNCTIONAL STATUS: UPDATED AT WEEKLY TEAM CONFERENCE - Bladder Same accident frequency: 7-Ind - No accidents in the past 7 days - Bowel Same accident frequency: 7-Ind - No accidents in the past 7 days - Walking Same score based on distance walked: 0(N/A) - Wheelchair Same score based on distance traveled: 0(N/A) FUNCTIONAL STATUS: - Self-Care A. Eating Don B. Grooming Don C. Bathing modA D. Dressing - Upper Donnell E. Dressing - Lower modA F. Toileting modA - Sphincter Control G. Bladder control sup H. Bowel control Don - Transfers Control I. Bed/Chair/Wheelchair modA J. Toilet modA K. Tub/Shower modA - Locomotion L. Walk/Wheelchair (B) modA M. Stairs ADNO - Communication N. Comprehension (B) Don O. Expression (B) Ind - Social Cognition P. Social Interaction Ind Q. Problem Solving sup R. Memory Don - Endurance Fair - Balance Poor - Safety Awareness Fair QI SCORES: - Self-Care A. Eating 03-Partial/moderate assistance B. Oral hygiene 03-Partial/moderate assistance C. Toileting hygiene 03-Partial/moderate assistance E. Shower/bathe self 03-Partial/moderate assistance F. Upper body dressing 03-Partial/moderate assistance G. Lower body dressing 03-Partial/moderate assistance H. Putting on/taking off footwear 88-Not attempted due to medical condition or safety concerns - Mobility A. Roll left and right 04-Supervision or touching assistance B. Sit to lying 03-Partial/moderate assistance C. Lying to sitting on side of bed 03-Partial/moderate assistance D. Sit to stand 03-Partial/moderate assistance E. Chair/tcw-wh-aaewl transfer 03-Partial/moderate assistance F. Toilet transfer 03-Partial/moderate assistance G. Car transfer 88-Not attempted due to medical condition or safety concerns I. Walk 10 feet 88-Not attempted due to medical condition or safety concerns J. Walk 50 feet with two turns 88-Not attempted due to medical condition or safety concerns K. Walk 150 feet 88-Not attempted due to medical condition or safety concerns L. Walking 10 feet on uneven surfaces 88-Not attempted due to medical condition or safety concerns M. 1 step (curb) 88-Not attempted due to medical condition or safety concerns N. 4 steps 88-Not attempted due to medical condition or safety concerns O. 12 steps 88-Not attempted due to medical condition or safety concerns P. Picking up object 88-Not attempted due to medical condition or safety concerns R. Wheel 50 feet with two turns 88-Not attempted due to medical condition or safety concerns S. Wheel 150 feet 88-Not attempted due to medical condition or safety concerns - Bladder and Bowel Bladder continence Bowel continence - Endurance Fair - Balance Fair - Safety Awareness Fair CURRENT [facility]. DEFICITS: Self-Care, Mobility, Endurance, Balance, and Safety Awareness SIGNATURE PANEL: (COLLEGE ARCHIVIST)
[2020-05-24] MEDS: DOCUSATE NA/SENNA CONC 1 TAB PO SCH ×2 (21:00→21:04)
[2020-05-24] MEDS: MELATONIN 3 MG TABLET PO SCH ×2 (21:00→21:04)
[2020-05-24] MEDS: INSULIN GLARGINE 100 UNITS/ML SQ SCH (21:03)
[2020-05-24] MEDS: ATORVASTATIN 80 MG TAB PO SCH (21:03)
--- NOTE | 2020-05-25 02:16 | FAST ---
[employer] FORM SHIFT START DATE/TIME: 05/24/2020 19:00 (QUAHOGGER) SHIFT END DATE/TIME: 05/25/2020 07:00 (QUAHOGGER) NAME KIARRA RUFFIN DATE OF : 1950 DATE OF ADMISSION: 05/18/2020 17:05 (QUAHOGGER) PHONE: AGE: 70 N# [id number] GENDER: Male ENCOUNTER PHYSICIAN: Dr. Puneet Samuels M.D. ADMISSION DIAGNOSIS: - Cardiac 09 - Cardiac Disorders () MULTIVESSEL CAD. EATING: Not assessed/no information CODE: - ORAL HYGIENE: Not assessed/no information CODE: - TOILETING HYGIENE: TOILETING HYGIENE - STEP 1: Does the patient complete the activity by him/herself with no assistance (physical, verbal/nonverbal cueing, setup/clean-up)? No. TOILETING HYGIENE - STEP 2: Does the patient need only setup/clean-up assistance from one helper? No. TOILETING HYGIENE - STEP 3: Does the patient need only verbal/nonverbal cueing or touching/steadying/contact guard assistance fro m one helper? Yes. 1. [id number] ADMISSION PERFORMANCE: Supervision or touching assistance CODE: 04 BATHING: Not assessed/no information CODE: - DRESSING - UPPER BODY: Not assessed/no information CODE: - DRESSING - LOWER BODY: Not assessed/no information CODE: - PUTTING ON/TAKING OFF FOOTWEAR: Not assessed/no information CODE: - ROLL LEFT AND RIGHT: ROLL LEFT AND RIGHT - STEP 1: Does the patient complete the activity by him/herself with no assistance (physical, verbal/nonverbal cueing, setup/clean-up)? No. ROLL LEFT AND RIGHT - STEP 2: Does the patient need only setup/clean-up assistance from one helper? No. ROLL LEFT AND RIGHT - STEP 3: Does the patient need only verbal/nonverbal cueing or touching/steadying/contact guard assistance fro m one helper? Yes. 1. [id number] ADMISSION PERFORMANCE: Supervision or touching assistance CODE: 04 SIT TO LYING: Not assessed/no information CODE: - LYING TO SITTING: Not assessed/no information CODE: - SIT TO STAND: Not assessed/no information CODE: - TRANSFERS: BED, CHAIR: Not assessed/no information CODE: - TRANSFER TOILET: Not assessed/no information CODE: - TRANSFERS: CAR: Not assessed/no information CODE: - WALK 10 FEET: Not assessed/no information CODE: - 1 STEP (CURB): Not assessed/no information CODE: - PICKING UP OBJECT: Not assessed/no information CODE: - DOES THE PATIENT USE A WHEELCHAIR/SCOOTER? CODE: EXPR WHEEL 50 FEET WITH TWO TURNS: Not assessed/no information CODE: - INDICATE THE TYPE OF WHEELCHAIR/SCOOTER USED: CODE: EXPR WHEEL 150 FEET: Not assessed/no information CODE: - INDICATE THE TYPE OF WHEELCHAIR/SCOOTER USED: CODE: EXPR BLADDER AND BOWEL: H350. BLADDER CONTINENCE (3-DAY ASSESSMENT PERIOD): Always continent (no documented incontinence) CODE: 0 H400. BOWEL CONTINENCE (3-DAY ASSESSMENT PERIOD): Always continent CODE: 0
[2020-05-25] MEDS: CRANBERRY FRUIT EXTRACT 200 MG CAP PO SCH ×2 (07:23→20:33)
[2020-05-25] MEDS: ASPIRIN 81 MG CHEWABLE TABLET PO SCH (07:23)
[2020-05-25] MEDS: APIXABAN 2.5 MG TABLET PO SCH ×2 (07:23→20:33)
[2020-05-25] MEDS: LIOTHYRONINE SOD 5 MCG TAB PO SCH (07:23)
[2020-05-25] MEDS: GABAPENTIN 400 MG CAP PO SCH ×2 (07:23→20:33)
[2020-05-25] MEDS: MIDODRINE HCL 5 MG TABLET PO SCH ×3 (07:24→17:40)
[2020-05-25] MEDS: TRIAMCINOLONE ACET 0.1% CREAM 80 GM TOP SCH ×2 (07:24→20:35)
[2020-05-25] MEDS: NYSTATIN PWDR 100000 UNIT/GM TOP SCH ×3 (07:24→20:35)
[2020-05-25] MEDS: POLYETHYL GLY 3350 17 GM/DOSE PO SCH (07:24)
[2020-05-25] MEDS: FLUDROCORTISONE 0.1 MG TAB PO SCH (07:24)
[2020-05-25] MEDS: SODIUM CHLORIDE 1 GM TAB PO SCH ×2 (07:24→17:40)
[2020-05-25] MEDS: LEVOTHYROXINE SOD 0.05 MG TABLET PO SCH (07:24)
[2020-05-25] MEDS: INSULIN -REGULAR HUMAN 50 UNIT/0.5 ML ML SQ SCH ×4 (07:30→20:36)
[2020-05-25] MEDS: INSULIN LISPRO 100 UNIT/1 ML SQ SCH ×3 (08:35→17:39)
--- NOTE | 2020-05-25 10:56 | P.PN ---
Mr. Mederos is admitted to the inpatient rehabilitation unit with syncope related to severe autonomic dysfunction and debility. His systolic blood pressures in the recumbent position often run in the 140s to 160s, while in a seated position his systolic blood pressures drop to the 90s. After standing and ambulating 10- 15 steps, his systolic blood pressures may drop to the 70s. He is frequently symptomatic after going from a recumbent to sitting and standing position and is a high fall risk. Mitigation efforts such using a thigh-high HARMONY hose and an abdominal binder along with midodrine and Florinef provide partial symptomatic relief. However, he would benefit significantly from a high back reclining wheelchair to help him assume a more recumbent position while mobilizing.
--- NOTE | 2020-05-25 16:23 | FAST ---
[employer] FORM SHIFT START DATE/TIME: 05/25/2020 07:00 (MEDICAL BILLING SPECIALIST) SHIFT END DATE/TIME: 05/25/2020 19:00 (MEDICAL BILLING SPECIALIST) NAME KAIRRA RUFFIN DATE OF : 1950 DATE OF ADMISSION: 05/18/2020 17:05 (MEDICAL BILLING SPECIALIST) PHONE: AGE: 70 N# [id number] GENDER: Male ENCOUNTER PHYSICIAN: Dr. Puneet Samuels M.D. ADMISSION DIAGNOSIS: - Cardiac 09 - Cardiac Disorders () MULTIVESSEL CAD. EATING: EATING - STEP 1: Does the patient complete the activity by him/herself with no assistance (physical, verbal/nonverbal cueing, setup/clean-up)? No. EATING - STEP 2: Does the patient need only setup/clean-up assistance from one helper? Yes. 1. [id number] ADMISSION PERFORMANCE: Setup or clean-up assistance CODE: 05 ORAL HYGIENE: ORAL HYGIENE - STEP 1: Does the patient complete the activity by him/herself with no assistance (physical, verbal/nonverbal cueing, setup/clean-up)? No. ORAL HYGIENE - STEP 2: Does the patient need only setup/clean-up assistance from one helper? Yes. 1. [id number] ADMISSION PERFORMANCE: Setup or clean-up assistance CODE: 05 TOILETING HYGIENE: TOILETING HYGIENE - STEP 1: Does the patient complete the activity by him/herself with no assistance (physical, verbal/nonverbal cueing, setup/clean-up)? No. TOILETING HYGIENE - STEP 2: Does the patient need only setup/clean-up assistance from one helper? Yes. 1. [id number] ADMISSION PERFORMANCE: Setup or clean-up assistance CODE: 05 BATHING: Not assessed/no information CODE: - DRESSING - UPPER BODY: DRESSING - UPPER BODY - STEP 1: Does the patient complete the activity by him/herself with no assistance (physical, verbal/nonverbal cueing, setup/clean-up)? No. DRESSING - UPPER BODY - STEP 2: Does the patient need only setup/clean-up assistance from one helper? No. DRESSING - UPPER BODY - STEP 3: Does the patient need only verbal/nonverbal cueing or touching/steadying/contact guard assistance fro m one helper? Yes. 1. [id number] ADMISSION PERFORMANCE: Supervision or touching assistance CODE: 04 DRESSING - LOWER BODY: DRESSING - LOWER BODY - STEP 1: Does the patient complete the activity by him/herself with no assistance (physical, verbal/nonverbal cueing, setup/clean-up)? No. DRESSING - LOWER BODY - STEP 2: Does the patient need only setup/clean-up assistance from one helper? No. DRESSING - LOWER BODY - STEP 3: Does the patient need only verbal/nonverbal cueing or touching/steadying/contact guard assistance fro m one helper? No. DRESSING - LOWER BODY - STEP 4: Does the patient need physical assistance - for example lifting or trunk support from one helper - wi th the helper providing less than half of the effort? Yes. 1. [id number] ADMISSION PERFORMANCE: Partial/moderate assistance CODE: 03 PUTTING ON/TAKING OFF FOOTWEAR: FOOTWEAR - STEP 1: Does the patient complete the activity by him/herself with no assistance (physical, verbal/nonverbal cueing, setup/clean-up)? No. FOOTWEAR - STEP 2: Does the patient need only setup/clean-up assistance from one helper? No. FOOTWEAR - STEP 3: Does the patient need only verbal/nonverbal cueing or touching/steadying/contact guard assistance fro m one helper? Yes. 1. [id number] ADMISSION PERFORMANCE: Supervision or touching assistance CODE: 04 ROLL LEFT AND RIGHT: ROLL LEFT AND RIGHT - STEP 1: Does the patient complete the activity by him/herself with no assistance (physical, verbal/nonverbal cueing, setup/clean-up)? No. ROLL LEFT AND RIGHT - STEP 2: Does the patient need only setup/clean-up assistance from one helper? No. ROLL LEFT AND RIGHT - STEP 3: Does the patient need only verbal/nonverbal cueing or touching/steadying/contact guard assistance fro m one helper? Yes. 1. [id number] ADMISSION PERFORMANCE: Supervision or touching assistance CODE: 04 SIT TO LYING: SIT TO LYING - STEP 1: Does the patient complete the activity by him/herself with no assistance (physical, verbal/nonverbal cueing, setup/clean-up)? No. SIT TO LYING - STEP 2: Does the patient need only setup/clean-up assistance from one helper? No. SIT TO LYING - STEP 3: Does the patient need only verbal/nonverbal cueing or touching/steadying/contact guard assistance fro m one helper? Yes. 1. [id number] ADMISSION PERFORMANCE: Supervision or touching assistance CODE: 04 LYING TO SITTING: LYING TO SITTING ON SIDE OF BED - STEP 1: Does the patient complete the activity by him/herself with no assistance (physical, verbal/nonverbal cueing, setup/clean-up)? No. LYING TO SITTING ON SIDE OF BED - STEP 2: Does the patient need only setup/clean-up assistance from one helper? No. LYING TO SITTING ON SIDE OF BED - STEP 3: Does the patient need only verbal/nonverbal cueing or touching/steadying/contact guard assistance fro m one helper? Yes. 1. [id number] ADMISSION PERFORMANCE: Supervision or touching assistance CODE: 04 SIT TO STAND: SIT TO STAND - STEP 1: Does the patient complete the activity by him/herself with no assistance (physical, verbal/nonverbal cueing, setup/clean-up)? No. SIT TO STAND - STEP 2: Does the patient need only setup/clean-up assistance from one helper? No. SIT TO STAND - STEP 3: Does the patient need only verbal/nonverbal cueing or touching/steadying/contact guard assistance fro m one helper? Yes. 1. [id number] ADMISSION PERFORMANCE: Supervision or touching assistance CODE: 04 TRANSFERS: BED, CHAIR: CHAIR/[id number] TRANSFER - STEP 1: Does the patient complete the activity by him/herself with no assistance (physical, verbal/nonverbal cueing, setup/clean-up)? No. CHAIR/[id number] TRANSFER - STEP 2: Does the patient need only setup/clean-up assistance from one helper? No. CHAIR/[id number] TRANSFER - STEP 3: Does the patient need only verbal/nonverbal cueing or touching/steadying/contact guard assistance fro m one helper? Yes. 1. [id number] ADMISSION PERFORMANCE: Supervision or touching assistance CODE: 04 TRANSFER TOILET: TOILET TRANSFER - STEP 1: Does the patient complete the activity by him/herself with no assistance (physical, verbal/nonverbal cueing, setup/clean-up)? No. TOILET TRANSFER - STEP 2: Does the patient need only setup/clean-up assistance from one helper? No. TOILET TRANSFER - STEP 3: Does the patient need only verbal/nonverbal cueing or touching/steadying/contact guard assistance fro m one helper? Yes. 1. [id number] ADMISSION PERFORMANCE: Supervision or touching assistance CODE: 04 TRANSFERS: CAR: Not assessed/no information CODE: - WALK 10 FEET: Not assessed/no information CODE: - 1 STEP (CURB): Not assessed/no information CODE: - PICKING UP OBJECT: Not assessed/no information CODE: - DOES THE PATIENT USE A WHEELCHAIR/SCOOTER? Q1. DOES THE PATIENT USE A WHEELCHAIR/SCOOTER?: Yes CODE: 1 WHEEL 50 FEET WITH TWO TURNS: WHEEL 50 FEET WITH TWO TURNS - STEP 1: Does the patient complete the activity by him/herself with no assistance (physical, verbal/nonverbal cueing, setup/clean-up)? No. WHEEL 50 FEET WITH TWO TURNS - STEP 2: Does the patient need only setup/clean-up assistance from one helper? No. WHEEL 50 FEET WITH TWO TURNS - STEP 3: Does the patient need only verbal/nonverbal cueing or touching/steadying/contact guard assistance fro m one helper? Yes. 1. [id number] ADMISSION PERFORMANCE: Supervision or touching assistance CODE: 04 INDICATE THE TYPE OF WHEELCHAIR/SCOOTER USED: RR1. INDICATE THE TYPE OF WHEELCHAIR/SCOOTER USED.: Manual CODE: 1 WHEEL 150 FEET: Not assessed/no information CODE: - INDICATE THE TYPE OF WHEELCHAIR/SCOOTER USED: SS1. INDICATE THE TYPE OF WHEELCHAIR/SCOOTER USED.: Manual CODE: 1 BLADDER AND BOWEL: H350. BLADDER CONTINENCE (3-DAY ASSESSMENT PERIOD): Always continent (no documented incontinence) CODE: 0 H400. BOWEL CONTINENCE (3-DAY ASSESSMENT PERIOD): Always continent CODE: 0 SIGNATURE PANEL: The following modified sections: 1. [id number] Admission Performance, 1. [id number] Admission Performance, 1. QS3456D Admission Performance, 1. LP2892m Admission Performance, 1. KE9415i Admission Performance, 1. KN1803h Admission Performance, 1. JX3108k Admission Performance, 1. HJ1070R Admission Performance , 1. [id number] Admission Performance, 1. DW6734A Admission Performance, 1. DN0187H Admission Performanc e, 1. EY3894B Admission Performance, 1. WS6161X Admission Performance, Q1. Does the patient use a whe elchair/scooter?, 1. [id number] Admission Performance, RR1. Indicate the type of wheelchair/scooter used ., Code, SS1. Indicate the type of wheelchair/scooter used., H350. Bladder Continence (3-day assessme nt period), H400. Bowel Continence (3-day assessment period) were [electronically] signed by Dylan LedesmaNJared on SunMay 25 2020 16:22:33 GMT-0600 (Central Standard Time)
[2020-05-25] MEDS ORDERED: INSULIN LISPRO 100 UNIT/1 ML ONE (17:51)
[2020-05-25] MEDS: DOCUSATE NA/SENNA CONC 1 TAB PO SCH (20:33)
[2020-05-25] MEDS: ATORVASTATIN 80 MG TAB PO SCH (20:34)
[2020-05-25] MEDS: MELATONIN 3 MG TABLET PO SCH (20:35)
[2020-05-25] MEDS: INSULIN GLARGINE 100 UNITS/ML SQ SCH (20:35)
[2020-05-26] MEDS: LEVOTHYROXINE SOD 0.05 MG TABLET PO SCH (06:34)
[2020-05-26] MEDS: LIOTHYRONINE SOD 5 MCG TAB PO SCH (06:34)
[2020-05-26] MEDS: INSULIN -REGULAR HUMAN 50 UNIT/0.5 ML ML SQ SCH ×4 (07:42→20:19)
[2020-05-26] MEDS: MIDODRINE HCL 5 MG TABLET PO SCH ×3 (07:42→16:44)
[2020-05-26] MEDS: INSULIN LISPRO 100 UNIT/1 ML SQ SCH ×3 (07:43→17:16)
[2020-05-26] MEDS: APIXABAN 2.5 MG TABLET PO SCH ×2 (07:44→20:19)
[2020-05-26] MEDS: ASPIRIN 81 MG CHEWABLE TABLET PO SCH (07:44)
[2020-05-26] MEDS: CRANBERRY FRUIT EXTRACT 200 MG CAP PO SCH ×2 (07:44→20:18)
[2020-05-26] MEDS: SODIUM CHLORIDE 1 GM TAB PO SCH ×2 (07:44→16:44)
[2020-05-26] MEDS: FLUDROCORTISONE 0.1 MG TAB PO SCH (07:44)
[2020-05-26] MEDS: GABAPENTIN 400 MG CAP PO SCH ×2 (07:44→20:18)
[2020-05-26] MEDS: HYDROCODONE/APAP 5/325 MG TAB PO PRN ×2 (07:45→16:43)
[2020-05-26] MEDS: POLYETHYL GLY 3350 17 GM/DOSE PO SCH ×2 (07:45→08:00)
[2020-05-26] MEDS: NYSTATIN PWDR 100000 UNIT/GM TOP SCH ×3 (08:00→20:00)
[2020-05-26] MEDS: TRIAMCINOLONE ACET 0.1% CREAM 80 GM TOP SCH ×2 (09:27→20:00)
--- NOTE | 2020-05-26 17:59 | R.PN ---
PROGRESS NOTES ENCOUNTER DATE AND TIME: 05/26/2020 17:51 (HORSE TREKKING GUIDE) NAME KIARRA RUFFIN DATE OF : 1950 DATE OF ADMISSION: 05/18/2020 17:05 (HORSE TREKKING GUIDE) MULTIVESSEL CADCHIEF COMPLAINT: Debility and multivessel cardiac disease. SUBJECTIVE: Pt denied any depression. Pt denied any Shortness of Breath. He has significant autonomic dysfunction with SBP lying at 150-170, sitting SBP 90s and standing SBP 80s. WBC 6.3, Hgb 10.4, glucose 187 to 241. Will increase Lisopro to 7 units tid. UA appears positive for UTI with >100,000 CFU. Sensitivities show mixed craig and 2 + yeast. Cranberry pills and push fluids. Ambulated 500' with standby assistance using a rolling walker. However, his blood pressure dropped to 79/49, pulse 79. Abdominal binder and thigh high HARMONY hose were applied. VITAL SIGNS Temperature: 97.9 F SBP/DBP: 158/77 Pulse: 82 Resp: 15 MEDICATION ALLERGIES: No Known Drug Allergies (NKDA) ENVIRONMENTAL ALLERGIES: - Substance Allergies None Known - Other Allergies None Known NURSING: - Shower allowing shower ACTIVITIES OOB only with supervision THERAPIES: - Dietary and Nutrition Adequate Nutrition. Nutritional Education. Nutritional Supplements. PHYSICAL EXAM - Gen Alert and awake Lying in bed No apparent distress Oriented to: person, time, and place - Skin No breakdown Normacephalic - Eyes No abnormalities - ENMT No abnormalities - Neck No abnormalities - CVS RRR - Chest Mildly decreased breath sounds bilaterally. - Resp No wheezing - Abd + bowel sounds - GI Soft Deferred - No abnormalities - Ext Mild bilateral lower extremity edema. - MSK 4+/5 weakness in both lower extremities. - Neuro 4/5 strength bilaterally lower extremities. - OTHER He has marked orthostatic hypotension and uses am abdominal binder with thigh high HARMONY hose. ASSESSMENT: Pt. is a 70 yo Right-handed male of unknown race.On 05/04/2020 he was [address] to [facility] wi th diagnosis MULTIVESSEL CAD.His impairment category is Cardiac 09 - Cardiac Disorders (09).Pre-morb idly, Pt. was independent/mod-I in Safety Awareness, Balance, Endurance, and Self-Care; and he had go od Sphincter Control, Transfers Control, and Social Cognition.Currently, he has deficits of Endurance , Sphincter Control, Transfers Control, Balance, and Locomotion.Pt. is now referred to [facility] for acute in-patient rehabilitation in order to maximize patient's functional ind ependence in activities of daily living, strength, ROM, and mobility.MDM/PLAN: - Physical Therapy Gait dysfunction - to improve, our physical therapists will perform initial evaluation of pt's statu s upon admission and devise an individualized program for Gait Training, and Wheel Chair mobility Inability to transfer - to improve, our physical therapists will perform initial evaluation of pt's status upon admission and devise an individualized program for Bed mobility Need for home safety evaluation - to improve, our physical therapists will perform initial evaluatio n of pt's status upon admission and devise an individualized program for Home Evaluation Need in caregiver upon discharge - to improve, our physical therapists will perform initial evaluati on of pt's status upon admission and devise an individualized program for Caregiver Training New precaution - to improve, our physical therapists will perform initial evaluation of pt's status upon admission and devise an individualized program for Patient precaution education Edema - to improve, our physical therapists will perform initial evaluation of pt's status upon admi ssion and devise an individualized program for Elevation Training, and Lymphedema Therapy Poor balance - to improve, our physical therapists will perform initial evaluation of pt's status up on admission and devise an individualized program for Balance Training Poor endurance - to improve, our physical therapists will perform initial evaluation of pt's status upon admission and devise an individualized program for Endurance Training Weakness - to improve, our physical therapists will perform initial evaluation of pt's status upon a dmission and devise an individualized program for Aquatic Therapy, Neuromuscular Reeducation, and Str engthening Achieving independence - to improve, our physical therapists will perform initial evaluation of pt's status upon admission and devise an individualized program for Community Reintegration Activities - Occupational Therapy Need for career services manager - to improve, our occupation therapists will perform initial evaluation of pt's status upon admission and devise an individualized program for Caregiver Training Weakness - to improve, our occupation therapists will perform initial evaluation of pt's status upon admission and devise an individualized program for Aquatic Therapy, Balance, Endurance, UE ROM, and UE strengthening - Other See attached MAR (Medication Administration Record) - Diet Type Continue Regular - Diet - Liquid Texture Continue Regular - Tube Feed Continue N/A - Diet - Solid Texture Continue Regular - Shower allowing shower FUNCTIONAL STATUS: UPDATED AT WEEKLY TEAM CONFERENCE - Bladder Same accident frequency: 7-Ind - No accidents in the past 7 days - Bowel Same accident frequency: 7-Ind - No accidents in the past 7 days - Walking Same score based on distance walked: 0(N/A) - Wheelchair Same score based on distance traveled: 0(N/A) FUNCTIONAL STATUS: - Self-Care A. Eating Don B. Grooming Don C. Bathing modA D. Dressing - Upper Donnell E. Dressing - Lower modA F. Toileting modA - Sphincter Control G. Bladder control sup H. Bowel control Don - Transfers Control I. Bed/Chair/Wheelchair modA J. Toilet modA K. Tub/Shower modA - Locomotion L. Walk/Wheelchair (B) modA M. Stairs ADNO - Communication N. Comprehension (B) Don O. Expression (B) Ind - Social Cognition P. Social Interaction Ind Q. Problem Solving sup R. Memory Don - Endurance Fair - Balance Poor - Safety Awareness Fair QI SCORES: - Self-Care A. Eating 03-Partial/moderate assistance B. Oral hygiene 03-Partial/moderate assistance C. Toileting hygiene 03-Partial/moderate assistance E. Shower/bathe self 03-Partial/moderate assistance F. Upper body dressing 03-Partial/moderate assistance G. Lower body dressing 03-Partial/moderate assistance H. Putting on/taking off footwear 88-Not attempted due to medical condition or safety concerns - Mobility A. Roll left and right 04-Supervision or touching assistance B. Sit to lying 03-Partial/moderate assistance C. Lying to sitting on side of bed 03-Partial/moderate assistance D. Sit to stand 03-Partial/moderate assistance E. Chair/ypt-ju-revcm transfer 03-Partial/moderate assistance F. Toilet transfer 03-Partial/moderate assistance G. Car transfer 88-Not attempted due to medical condition or safety concerns I. Walk 10 feet 88-Not attempted due to medical condition or safety concerns J. Walk 50 feet with two turns 88-Not attempted due to medical condition or safety concerns K. Walk 150 feet 88-Not attempted due to medical condition or safety concerns L. Walking 10 feet on uneven surfaces 88-Not attempted due to medical condition or safety concerns M. 1 step (curb) 88-Not attempted due to medical condition or safety concerns N. 4 steps 88-Not attempted due to medical condition or safety concerns O. 12 steps 88-Not attempted due to medical condition or safety concerns P. Picking up object 88-Not attempted due to medical condition or safety concerns R. Wheel 50 feet with two turns 88-Not attempted due to medical condition or safety concerns S. Wheel 150 feet 88-Not attempted due to medical condition or safety concerns - Bladder and Bowel Bladder continence Bowel continence - Endurance Fair - Balance Fair - Safety Awareness Fair CURRENT [facility]. DEFICITS: Self-Care, Mobility, Endurance, Balance, and Safety Awareness SIGNATURE PANEL: (HORSE TREKKING GUIDE)
[2020-05-26] MEDS: DOCUSATE NA/SENNA CONC 1 TAB PO SCH (20:17)
[2020-05-26] MEDS: INSULIN GLARGINE 100 UNITS/ML SQ SCH (20:17)
[2020-05-26] MEDS: ATORVASTATIN 80 MG TAB PO SCH (20:18)
[2020-05-26] MEDS: MELATONIN 3 MG TABLET PO SCH (20:18)
[2020-05-27 06:44] LABS: Absolute Lymphocytes (CBC) 1.2 K/uL (0.7-4.9); Basophils % 1.2 % (0-1.3); Hematocrit 34.3 % (39.6-49.0); Lymphocytes % 14.6 % (15.3-44.8); MPV 7.1 fL (7.6-11.3); RBC Red Blood Cell Count 3.67 M/uL (4.33-5.43)
[2020-05-27 07:03] LABS: Albumin 2.6 g/dL (3.4-5.0); Magnesium 2.3 mg/dL (1.8-2.4); Potassium 3.9 mmol/L (3.5-5.1); Prealbumin 13.8 mg/dL (20-40)
[2020-05-27] MEDS: GABAPENTIN 400 MG CAP PO SCH ×2 (07:34→20:17)
[2020-05-27] MEDS: SODIUM CHLORIDE 1 GM TAB PO SCH ×2 (07:34→17:42)
[2020-05-27] MEDS: FLUDROCORTISONE 0.1 MG TAB PO SCH (07:34)
[2020-05-27] MEDS: LEVOTHYROXINE SOD 0.05 MG TABLET PO SCH (07:35)
[2020-05-27] MEDS: ASPIRIN 81 MG CHEWABLE TABLET PO SCH (07:35)
[2020-05-27] MEDS: APIXABAN 2.5 MG TABLET PO SCH ×2 (07:35→20:18)
[2020-05-27] MEDS: LIOTHYRONINE SOD 5 MCG TAB PO SCH (07:35)
[2020-05-27] MEDS: POLYETHYL GLY 3350 17 GM/DOSE PO SCH ×2 (07:36→08:00)
[2020-05-27] MEDS: INSULIN -REGULAR HUMAN 50 UNIT/0.5 ML ML SQ SCH ×4 (07:36→20:19)
[2020-05-27] MEDS: MIDODRINE HCL 5 MG TABLET PO SCH ×3 (07:36→17:42)
[2020-05-27] MEDS: CRANBERRY FRUIT EXTRACT 200 MG CAP PO SCH ×2 (07:36→20:17)
[2020-05-27] MEDS: TRIAMCINOLONE ACET 0.1% CREAM 80 GM TOP SCH ×2 (07:37→20:00)
[2020-05-27] MEDS: INSULIN LISPRO 100 UNIT/1 ML SQ SCH ×4 (07:37→17:40)
[2020-05-27] MEDS: NYSTATIN PWDR 100000 UNIT/GM TOP SCH ×2 (07:38→20:00)
--- NOTE | 2020-05-27 08:13 | CON ---
Date of Consultation: 05/25/2020 Reason For Consultation: Coronary artery disease, status post recent bypass surgery and rehab now. Consultation was for management of CAD. History Of Present Illness: Mr. Mederos is a 70-year-old white male who was recently sent to [facility] after the catheterization showing severe coronary artery disease. This was done on 05/17/2020. He u nderwent a coronary artery bypass surgery and did fairly well. He was transferred for cardiac rehab. Allergies: TO ACYCLOVIR, DEMEROL, AND VANCOMYCIN. Medications: Include Eliquis, aspirin, Lipitor, insulin, levothyroxine, midodrine. Past Medical History: Positive for paroxysmal atrial fibrillation, coronary artery disease, status p ost CABG, dyslipidemia, orthostatic hypotension, diabetes, and hypothyroidism. Review of Systems: Negative. Social History: Negative. Family History: Noncontributory. Medications listed earlier. Physical Examination: Vital Signs: His blood pressure when I saw him was 160/80, pulse is 80, temperature is 97.3, respira tory rate is 16, O2 saturation on room air was 96%. HEENT: Negative. Neck: Supple without any bruit, lymphadenopathy, JVD, or thyromegaly. Chest: Clear to auscultation and percussion. Cardiac: Revealed a regular rhythm and rate. No murmurs, gallops, or rubs. Abdomen: Benign. Extremities: Revealed no clubbing, cyanosis, or edema. Diagnostic Data: EKG showed normal rhythm. Chest x-ray showed no acute changes. His creatinine was 0.95 with a potassium of 3.9. His glucose was elevated at 175. Hemoglobin was adequate. Impression And Plan: 1.Coronary artery disease, status post coronary artery bypass surgery. Patient is on aspirin. He i s on Eliquis. He is on Lipitor. He does not tolerate beta-khloe, because of occasional orthostati c hypotension. He is on midodrine. His blood pressure is a little elevated. We should watch his sa lt intake and consider low-dose beta khloe if it persist. 2.History of atrial fibrillation, on Eliquis. 3.Dyslipidemia. 4.Neuropathy. 5.Diabetes. 6.Hypothyroidism. The patient is getting an excellent care in the rehab unit. He is already being ambulatory, is feeli ng great. No specific complaint. No edema. I am comfortable with his present regimen. I will cont inue to follow him on an as-needed basis. YENNI/JERONIMO Voice ID: [id number] Report ID: [id number]
[2020-05-27] MEDS: DOCUSATE NA/SENNA CONC 1 TAB PO SCH (20:17)
[2020-05-27] MEDS: ATORVASTATIN 80 MG TAB PO SCH (20:17)
[2020-05-27] MEDS: INSULIN GLARGINE 100 UNITS/ML SQ SCH (20:18)
[2020-05-27] MEDS: MELATONIN 3 MG TABLET PO SCH (20:18)
[2020-05-28] MEDS: LIOTHYRONINE SOD 5 MCG TAB PO SCH (06:20)
[2020-05-28] MEDS: LEVOTHYROXINE SOD 0.05 MG TABLET PO SCH (06:20)
[2020-05-28] MEDS: HYDROCODONE/APAP 5/325 MG TAB PO PRN ×3 (07:06→16:36)
[2020-05-28] MEDS: INSULIN -REGULAR HUMAN 50 UNIT/0.5 ML ML SQ SCH ×4 (07:12→20:04)
[2020-05-28] MEDS: POLYETHYL GLY 3350 17 GM/DOSE PO SCH (07:27)
[2020-05-28] MEDS: INSULIN LISPRO 100 UNIT/1 ML SQ SCH ×3 (07:29→16:32)
[2020-05-28] MEDS: ASPIRIN 81 MG CHEWABLE TABLET PO SCH (07:30)
[2020-05-28] MEDS: FLUDROCORTISONE 0.1 MG TAB PO SCH (07:30)
[2020-05-28] MEDS: APIXABAN 2.5 MG TABLET PO SCH ×2 (07:30→20:03)
[2020-05-28] MEDS: GABAPENTIN 400 MG CAP PO SCH ×2 (07:30→20:02)
[2020-05-28] MEDS: SODIUM CHLORIDE 1 GM TAB PO SCH ×2 (07:30→16:33)
[2020-05-28] MEDS: MIDODRINE HCL 5 MG TABLET PO SCH ×3 (07:30→16:33)
[2020-05-28] MEDS: CRANBERRY FRUIT EXTRACT 200 MG CAP PO SCH ×2 (07:30→20:03)
[2020-05-28] MEDS: NYSTATIN PWDR 100000 UNIT/GM TOP SCH ×2 (08:00→20:00)
--- NOTE | 2020-05-28 09:51 | P.RH.PN ---
Estimated Length of Stay: 13 Expected Discharge Date: 05/31/20 Discharge Disposition Plan: Home Family Support: Yes Snf Goal: Mobility, Transfers, Self Care Vital Signs: Last Vital Signs Temp 97.1 F 05/28/20 07:53 Pulse 69 05/28/20 07:53 Resp 16 05/28/20 08:06 BP 145/95 H 05/28/20 07:53 Pulse Ox 98 05/28/20 08:06 Laboratory: Laboratory Last Values WBC 8.2 K/uL (4.3-10.9) D 05/27/20 06:22 RBC 3.67 M/uL (4.33-5.43) L 05/27/20 06:22 Hgb 11.9 g/dL (13.6-17.9) L 05/27/20 06:22 Hct 34.3 % (39.6-49.0) L D 05/27/20 06:22 MCV 93.5 fL (80-100) 05/27/20 06:22 MCH 32.3 pg (27.0-35.0) 05/27/20 06:22 MCHC 34.5 g/dL (32.0-36.0) 05/27/20 06:22 RDW 17.1 % (12.1-15.2) H D 05/27/20 06:22 Plt Count 356 K/uL (152-406) D 05/27/20 06:22 MPV 7.1 fL (7.6-11.3) L 05/27/20 06:22 Neutrophils % 74.9 % (41.7-73.7) H 05/27/20 06:22 Lymphocytes % 14.6 % (15.3-44.8) L 05/27/20 06:22 Monocytes % 5.6 % (3.3-12.3) 05/27/20 06:22 Eosinophils % 3.7 % (0-4.4) 05/27/20 06:22 Basophils % 1.2 % (0-1.3) 05/27/20 06:22 Absolute Neutrophils 6.2 K/uL (1.8-8.0) 05/27/20 06:22 Absolute Lymphocytes 1.2 K/uL (0.7-4.9) 05/27/20 06:22 Absolute Monocytes 0.5 K/uL (0.1-1.3) 05/27/20 06:22 Absolute Eosinophils 0.3 K/uL (0-0.5) 05/27/20 06:22 Absolute Basophils 0.1 K/uL (0-0.5) 05/27/20 06:22 Sodium 140 mmol/L (136-145) 05/27/20 06:22 Potassium 3.9 mmol/L (3.5-5.1) 05/27/20 06:22 Chloride 101 mmol/L (98-107) 05/27/20 06:22 Carbon Dioxide 35 mmol/L (21-32) H 05/27/20 06:22 BUN 20 mg/dL (7-18) H 05/27/20 06:22 Creatinine 0.95 mg/dL (0.55-1.3) 05/27/20 06:22 Estimated GFR 78 mL/min (=/>90) L 05/27/20 06:22 Glucose 201 mg/dL (74-106) H 05/27/20 06:22 POC Glucose 181 mg/dL (65-120) H 05/28/20 07:06 Calcium 9.2 mg/dL (8.5-10.1) D 05/27/20 06:22 Magnesium 2.3 mg/dL (1.8-2.4) 05/27/20 06:22 Albumin 2.6 g/dL (3.4-5.0) L 05/27/20 06:22 Prealbumin 13.8 mg/dL (20-40) L 05/27/20 06:22 Urine Color Yellow 05/18/20 20:10 Urine Appearance Cloudy 05/18/20 20:10 Urine pH 7.0 (5.0-7.0) 05/18/20 20:10 Ur Specific Hickman 1.025 (1.005-1.030) 05/18/20 20:10 Glucose (UA)(Auto) 3+ (NEG) H 05/18/20 20:10 Urine Ketones Negative (NEG) 05/18/20 20:10 Urine Blood Trace (NEG) H 05/18/20 20:10 Urine Nitrite Negative (NEG) 05/18/20 20:10 Urine Bilirubin Negative (NEG) 05/18/20 20:10 Urine Urobilinogen 1.0 mg/dL (0.2-1.0) 05/18/20 20:10 Ur Leukocyte Esterase 2+ (NEG) H 05/18/20 20:10 Urine RBC <5 /HPF (NONE SEEN) 05/18/20 20:10 Urine WBC >50 /HPF (<5) H 05/18/20 20:10 Ur Squamous Epith Cells FIELD MAP TECHNICIAN 05/18/20 20:10 Urine Bacteria 20-50 /HPF (NONE SEEN) H 05/18/20 20:10 Urine Yeast Few (NONE SEEN) 05/18/20 20:10 Ur Yeast w Hyphae Present 05/18/20 20:10 Urine Yeast (Budding) Present (NONE SEEN) H 05/18/20 20:10 Urine Culture Reflexed Not needed 05/18/20 20:10 Urine Total Protein 1+ (NEG) H 05/18/20 20:10 SARS-CoV-2 RNA (RT-PCR) Negative (NEGATIVE) 05/18/20 18:15 Weight: 161 lb 12.8 oz Wound Present: No Closed Surgical Incision Present: Yes Negative Pressure Wound Therapy Present: No Physician Update: He is making fair overall progress but still has significant orthostatic hypotension despite midodrine and florinef. He can walk about 100' before having to stop. He has more time with therapy. Functional Improvement: pt has demonstrated progress with ability to tolerate OOB activity and perform functional activity; however, he continues to struggle with hypotension for all OOB activity and is symptomatic. Training regarding self monitoring of symptoms has been provided. pt will require a tall back reclining w/c due to hypotension and significant fall/ safety risk issues. Summary: Patient's care plan and group home goals have been reviewed and revised as necessary. Please see the Rehabilitation Signature page for all necessary signatures.
[2020-05-28] MEDS: TRIAMCINOLONE ACET 0.1% CREAM 80 GM TOP SCH ×2 (11:31→20:00)
[2020-05-28] MEDS: DOCUSATE NA/SENNA CONC 1 TAB PO SCH (20:02)
[2020-05-28] MEDS: MELATONIN 3 MG TABLET PO SCH (20:03)
[2020-05-28] MEDS: ATORVASTATIN 80 MG TAB PO SCH (20:04)
[2020-05-28] MEDS: INSULIN GLARGINE 100 UNITS/ML SQ SCH (20:05)
[2020-05-29] MEDS: LEVOTHYROXINE SOD 0.05 MG TABLET PO SCH (07:19)
[2020-05-29] MEDS: LIOTHYRONINE SOD 5 MCG TAB PO SCH (07:19)
[2020-05-29] MEDS: NYSTATIN PWDR 100000 UNIT/GM TOP SCH ×2 (08:00→19:51)
[2020-05-29] MEDS: POLYETHYL GLY 3350 17 GM/DOSE PO SCH (08:00)
[2020-05-29] MEDS: INSULIN -REGULAR HUMAN 50 UNIT/0.5 ML ML SQ SCH ×4 (08:16→20:12)
[2020-05-29] MEDS: INSULIN LISPRO 100 UNIT/1 ML SQ SCH ×3 (08:16→16:47)
[2020-05-29] MEDS: GABAPENTIN 400 MG CAP PO SCH ×2 (08:17→19:51)
[2020-05-29] MEDS: APIXABAN 2.5 MG TABLET PO SCH ×2 (08:18→19:50)
[2020-05-29] MEDS: ASPIRIN 81 MG CHEWABLE TABLET PO SCH (08:18)
[2020-05-29] MEDS: CRANBERRY FRUIT EXTRACT 200 MG CAP PO SCH ×2 (08:18→19:50)
[2020-05-29] MEDS: MIDODRINE HCL 5 MG TABLET PO SCH ×3 (08:18→17:15)
[2020-05-29] MEDS: SODIUM CHLORIDE 1 GM TAB PO SCH ×2 (08:18→17:15)
[2020-05-29] MEDS: ACETAMINOPHEN 500 MG TAB PO PRN (08:20)
[2020-05-29] MEDS: FLUDROCORTISONE 0.1 MG TAB PO SCH (08:20)
[2020-05-29] MEDS: TRIAMCINOLONE ACET 0.1% CREAM 80 GM TOP SCH ×3 (08:25→20:00)
[2020-05-29] MEDS: DOCUSATE NA/SENNA CONC 1 TAB PO SCH (19:51)
[2020-05-29] MEDS: MELATONIN 3 MG TABLET PO SCH (19:51)
[2020-05-29] MEDS: ATORVASTATIN 80 MG TAB PO SCH (19:51)
[2020-05-29] MEDS: INSULIN GLARGINE 100 UNITS/ML SQ SCH ×2 (19:51→20:13)
[2020-05-29] MEDS: HYDROCODONE/APAP 5/325 MG TAB PO PRN (21:48)
[2020-05-30 07:12] VITALS: BP 158/75; TEMP 98.3
[2020-05-30] MEDS: LIOTHYRONINE SOD 5 MCG TAB PO SCH (07:15)
[2020-05-30] MEDS: LEVOTHYROXINE SOD 0.05 MG TABLET PO SCH (07:15)
[2020-05-30] MEDS: NYSTATIN PWDR 100000 UNIT/GM TOP SCH (08:00)
[2020-05-30] MEDS: POLYETHYL GLY 3350 17 GM/DOSE PO SCH (08:00)
[2020-05-30] MEDS: INSULIN LISPRO 100 UNIT/1 ML SQ SCH ×2 (08:29→12:00)
[2020-05-30] MEDS: INSULIN -REGULAR HUMAN 50 UNIT/0.5 ML ML SQ SCH ×2 (08:29→11:30)
[2020-05-30] MEDS: CRANBERRY FRUIT EXTRACT 200 MG CAP PO SCH (08:30)
[2020-05-30] MEDS: GABAPENTIN 400 MG CAP PO SCH (08:30)
[2020-05-30] MEDS: SODIUM CHLORIDE 1 GM TAB PO SCH (08:31)
[2020-05-30] MEDS: ASPIRIN 81 MG CHEWABLE TABLET PO SCH (08:31)
[2020-05-30] MEDS: MIDODRINE HCL 5 MG TABLET PO SCH ×2 (08:32→12:00)
[2020-05-30] MEDS: APIXABAN 2.5 MG TABLET PO SCH (08:32)
[2020-05-30] MEDS: TRIAMCINOLONE ACET 0.1% CREAM 80 GM TOP SCH (08:32)
[2020-05-30] MEDS: FLUDROCORTISONE 0.1 MG TAB PO SCH (08:32)
--- NOTE | 2020-06-17 14:19 | R.DS ---
DISCHARGE SUMMARY FACILITY [facility] MR# [id number] NAME KIARRA RUFFIN ADDRESS [address] [place] [address] [address]IP [phone] PHONE DATE OF 1950 AGE 70 SSN# [id number] GENDER Male DEXTERITY Right-handed MARITAL STATUS RACE Unknown race ENCOUNTER PHYSICIAN Dr. Puneet Samuels M.D. REFERRING DOCTOR МАРИНА BO REFERRING FACILITY [facility] DISCHARGE DIAGNOSIS: - Cardiac 09 - Cardiac Disorders () MULTIVESSEL CAD. 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 NURSING: - Shower allowing shower ACTIVITIES OOB only with supervision THERAPIES: - Dietary and Nutrition Adequate Nutrition Nutritional Education Nutritional Supplements HISTORY OF PRESENT ILLNESS: Pt. is a 70 yo Right-handed male of unknown race.On 05/04/2020 he was admitted to [facility] wi th diagnosis MULTIVESSEL CAD.His impairment category is Cardiac 09 - Cardiac Disorders ().Pre-morb idly, Pt. was independent/mod-I in Safety Awareness, Balance, Endurance, and Self-Care; and he had go od Sphincter Control, Transfers Control, and Social Cognition.Currently, he has deficits of Endurance , Sphincter Control, Transfers Control, Balance, and Locomotion.Pt. is now referred to [facility] for acute in-patient rehabilitation in order to maximize patient's functional ind ependence in activities of daily living, strength, ROM, and mobility.- Rehab Goal HOSPITAL COURSE: DIET - LIQUID TEXTURE: On 05/17/2020 Pt was upgraded to Regular Diet - Liquid Texture. DIET - SOLID TEXTURE: On 05/17/2020 Pt was upgraded to Regular Diet - Solid Texture. DIET TYPE: On 05/17/2020 Pt was upgraded to Regular Diet Type. TUBE FEED: On 05/17/2020 Pt was changed to N/A Tube Feed. DISCHARGE PHYSICAL EXAM - Gen Alert and awake Lying in bed No apparent distress Oriented to: person, time, and place - Skin No breakdown Normacephalic - Eyes No abnormalities - ENMT No abnormalities - Neck No abnormalities - CVS RRR - Chest Mildly decreased breath sounds bilaterally. - Resp No wheezing - Abd + bowel sounds - GI Soft Deferred - No abnormalities - Ext Mild bilateral lower extremity edema. - MSK 4+/5 weakness in both lower extremities. - Neuro 4/5 strength bilaterally lower extremities. - OTHER He has marked orthostatic hypotension and uses am abdominal binder with thigh high HARMONY hose. FUNCTIONAL STATUS: - Self-Care A. Eating 6-Don B. Grooming 6-Don C. Bathing 5-sup D. Dressing - Upper 6-Don E. Dressing - Lower 6-Don F. Toileting 6-Don - Sphincter Control G. Bladder control 6-Don H. Bowel control 6-Don - Transfers Control I. Bed/Chair/Wheelchair 6-Don J. Toilet 6-Don K. Tub/Shower 6-Don - Locomotion L. Walk/Wheelchair (B) 5-sup M. Stairs 0-ADNO - Communication N. Comprehension (B) 6-Don O. Expression (B) 7-Ind - Social Cognition P. Social Interaction 7-Ind Q. Problem Solving 5-sup R. Memory 6-Don - Endurance Fair - Balance Fair - Safety Awareness Fair QI SCORES: - Self-Care A. Eating 03-Partial/moderate assistance B. Oral hygiene 03-Partial/moderate assistance C. Toileting hygiene 03-Partial/moderate assistance E. Shower/bathe self 03-Partial/moderate assistance F. Upper body dressing 03-Partial/moderate assistance G. Lower body dressing 03-Partial/moderate assistance H. Putting on/taking off footwear 88-Not attempted due to medical condition or safety concerns - Mobility A. Roll left and right 04-Supervision or touching assistance B. Sit to lying 03-Partial/moderate assistance C. Lying to sitting on side of bed 03-Partial/moderate assistance D. Sit to stand 03-Partial/moderate assistance E. Chair/oni-no-hcxwi transfer 03-Partial/moderate assistance F. Toilet transfer 03-Partial/moderate assistance G. Car transfer 88-Not attempted due to medical condition or safety concerns I. Walk 10 feet 88-Not attempted due to medical condition or safety concerns J. Walk 50 feet with two turns 88-Not attempted due to medical condition or safety concerns K. Walk 150 feet 88-Not attempted due to medical condition or safety concerns L. Walking 10 feet on uneven surfaces 88-Not attempted due to medical condition or safety concerns M. 1 step (curb) 88-Not attempted due to medical condition or safety concerns N. 4 steps 88-Not attempted due to medical condition or safety concerns O. 12 steps 88-Not attempted due to medical condition or safety concerns P. Picking up object 88-Not attempted due to medical condition or safety concerns R. Wheel 50 feet with two turns 88-Not attempted due to medical condition or safety concerns S. Wheel 150 feet 88-Not attempted due to medical condition or safety concerns - Bladder and Bowel Bladder continence Bowel continence - Endurance Fair - Balance Fair - Safety Awareness Fair DISCHARGE INSTRUCTIONS: - N/A Eliquis 2.5 mg twice daily, Aspirin 81 mg daily. DISCHARGE PLAN, FOLLOW UP CARE PROVISIONS: - Estimated Length of Stay (days) 10. - Consensus on plan Discharge plan has been discussed with primary caregiver. Patient/Family is in agreement with the miquel n. Primary caregiver is in agreement with the plan. - Patient/Family Goals Return home independently. - Planned Living Setting Upon Discharge Home, to live with Family/Relatives. Transitional Living. SIGNATURE PANEL: (COURT SECURITY OFFICER)
== END 2020-05-30 12:00 | disposition home health service (06) | DRG 303 ==
LOC: 5TH 17:05
PROVIDERS: ADMIT Psychiatry & Neurology Neurology with Special Qualifications in Child Neurology; ATTEND Psychiatry & Neurology Neurology with Special Qualifications in Child Neurology
DX: I25.10 Atherosclerotic heart disease of native coronary artery without angina pectoris (principal); I95.1 Orthostatic hypotension; E11.40 Type 2 diabetes mellitus with diabetic neuropathy, unspecified; E03.9 Hypothyroidism, unspecified; I48.91 Unspecified atrial fibrillation; E78.5 Hyperlipidemia, unspecified; R53.81 Other malaise; Z95.1 Presence of aortocoronary bypass graft; Z88.5 Allergy status to narcotic agent; Z88.1 Allergy status to other antibiotic agents; Z88.8 Allergy status to other drugs, medicaments and biological substances; Z79.82 Long term (current) use of aspirin; Z79.01 Long term (current) use of anticoagulants; Z79.890 Hormone replacement therapy; Z79.4 Long term (current) use of insulin; Z79.899 Other long term (current) drug therapy; Z20.828 Contact with and (suspected) exposure to other viral communicable diseases
CPT/HCPCS: 36415; 80048; 81001; 82040; 82947; 83735; 84134; 85025; 87086; 87088; 97110; 97112; 97116; 97161; 97530; 97535; 97542; J1650; J1815; J2270; J7030; U0002; U0003

== ENCOUNTER 2020-08-22 09:38 | Emergency (ER) | payer OTHER ==
--- OUTSIDE RECORDS SUMMARY | 2020-08-22 09:48 | XMS REPORT | Continuity of Care Document ---
:1950 Author Organization [facility] t Address [address] [place] [address] [address]. [address] [place] [address] Care Team Providers Name Role Phone Theresa MARTE Attending Clinician Ynes FAROOQ, Zoya Attending Clinician Merchant FAROOQ Attending Clinician Gómez Sharma MD Attending Clinician Jimmy Espinosa MD Attending Clinician Brooklyn Hinkle MD Attending Clinician Eugene Reeves MD Attending Clinician Kong Mendiola MD Attending Clinician ZOYA DEGROOT Attending Clinician Unavailable BROOKLYN HINKLE Admitting Clinician Unavailable Payers Payer Name Policy Type Policy Effective Date Expiration Date Sour ce Number MEDICAREMEDICARE A [id number] DYAN Noel [id number] 2013- 00:00:00 - Medical PresentMedicare Center AETNA - MGD CAREAETNA [id number] 2020 DYAN Verdin INDEMNITY NON 00:00:00 - Medical [id number] 2019-Pr Ce nter esentComm Problems Condition Condition Condition Status Onset Resolution Last Treating Co mments Source Name Details Category Date Date Treatment Clinician Date s/p ACB x4 s/p ACB x4 Disease Active 2019-[address] by by 07-09 Sadie - Dr.Livesay Ramos 00:00: Me dical 05/09/20 05/09/20 00 Center PAD PAD Disease Active 2019-[address] [facility] (periphera (periphera -12 Sahra kes - l artery l artery 00:00: Medica l disease) disease) 00 Center Uncontroll Uncontroll Disease Active 2019-[address] ed type 2 ed type 2 07-06 [facility] - diabetes diabetes 00:00: Medica l mellitus mellitus 00 Center with with hyperglyce hyperglyce helena helena Coronary Coronary Disease Active 2019-06 [facility] [...] ents Source Name Type Date Date Clinician Vancomyc Propensi Active 2019-[address] in ty to 1-10 [facility] - Analogue adverse 00:00: Medical s reaction 00 Center s Acyclovi Propensi Active 2019-[address] r ty to 1-10 [facility] - Analogue adverse 00:00: Medical s reaction 00 Center s Meperidi Propensi Active 2019-[address] ne ty to 1-10 [facility] - adverse 00:00: Medical reaction 00 [place] s Social History Social Habit Start Date Stop Date Quantity Comments Source Sex Assigned At [facility] Medications Ordered Filled Start Stop Current Ordering Indication Dosage Frequency Signature Comments Components Source Medication Medication Date Date Medication? Clinician (SIG) Name Name aspirin 81 2019-06- No 81mg QD Take [address] MG EC - 11-25 tablet (81 [facility] - tablet 00:00: 23:59 mg total) Medic al 00 :00 by mouth Center daily. gabapentin 2019-06 Yes 300mg [id number] Take [address] (NEURONTIN) 1-24 [id number] mg by L ukes - 300 MG 15:43: 3D mouth 3 Medical capsule 43 (three) Center times daily. liothyronin 2019-06 Yes 5ug QD Take [address] e (CYTOMEL) 1-24 by mouth Luke s - 5 MCG 15:43: daily. Medical tablet 43 Center midodrine 2019-06 Yes 10mg Q.[id number] Take [address] (PROAMATINE 1-24 [id number] by mouth 3 [facility] - ) 10 MG 15:43: 3D (three) Medical tablet 43 times Center daily. levothyroxi 2019-06 Yes 50ug Take [address] [facility] ne 1-24 mcg by [facility]ukes - (SYNTHROID, 15:43: mouth Medic al LEVOTHROID) 43 Every Center 50 MCG morning on tablet an empty stomach. clopidogreL 2019-06- No 75mg QD Take [address] (PLAVIX) 75 07-18 11-24 by mouth Ana es - mg tablet 11:44: 00:00 daily. Medic al 58 :00 Center insulin 2019-06 Yes 15U QD Inject 15 [facility] glargine 1-24 Units [facility] - (LANTUS) 00:00: subcutaneo Med ical 100 unit/mL 00 usly Center (3 mL) InPn nightly. atorvastati 2019-06- No 80mg QD Take [address] n (LIPITOR) 07-18-24 tablet (80 L ukes - 80 MG 00:00: 23:59 mg total) Medica l tablet 00 :00 by mouth Center nightly. fludrocorti 2019-06- No .1mg QD Take [address] sone 07-18-24 tablet [facility] - (FLORINEF) 00:00: 23:59 (0.1 mg Med ical 0.1 mg 00 :00 total) by Center tablet mouth daily. insulin 2019-06- No 6U Inject 6 [facility] t lispro -24 11-24 Units [facility] - (HumaLOG) 00:00: 23:59 subcutaneo M edical 100 unit/mL 00 :00 usly 3 Center injection (three) times daily before meals. HYDROcodone 2019-06- No 2{tbl} Take [address] -acetaminop 1-24 12-04 tablets by L ukes - hen (NORCO 00:00: 23:59 mouth Medic al 5-325) 00 :00 every 4 Center 5-325 mg (four) per tablet hours as needed for up to 10 days. Max Daily Amount: 12 tablets ondansetron 2019-06 4mg Take [address] [facility] (ZOFRAN-ODT 07-18 tablet (4 Sahra kes - ) 4 MG 00:00: 23:59 mg total) Medic al disintegrat 00 :00 by mouth Cent er ing tablet every 6 (six) hours as needed for up to 7 days. polyethylen 2019-06 17g Q.5D Take [address] [facility] e glycol 07-18 by mouth 2 Luke s - (GLYCOLAX) 00:00: 23:59 (two) Medic al 17 gram 00 :00 times Center packet daily for 3 days. Vital Signs Vital Name Observation Time Observation Value Comments Source Heart rate 2020-05-18 14:37:00 86 /min [facility] Body temperature 2020-05-18 14:37:00 36.22 Sneha [facility] Respiratory rate 2020-05-18 14:37:00 18 /min [facility] Oxygen saturation in 2020-05-18 14:37:00 95 /min [facility] Arterial blood by Medical Ce nter Pulse oximetry Systolic blood 2020-05-18 14:37:00 138 mm[Hg] [facility] Diastolic blood 2020-05-18 14:37:00 67 mm[Hg] [facility] Body weight 2020-05-16 06:39:00 72.349 kg [facility] BMI 2020-05-16 06:39:00 22.25 kg/m2 [facility] Body height 2020-05-04 23:43:00 180.3 cm [facility] Procedures Procedure Date / Time Performed Performing Clinician Miguel muller POCT-GLUCOSE METER 2020-05-18 11:38:00 Jericho Espinosa [facility] POCT-GLUCOSE METER 2020-05-18 07:18:00 Jericho Espinosa [facility] POCT-GLUCOSE METER 2020-05-18 04:41:00 Jericho Espinosa [facility] POCT-GLUCOSE METER 2020-05-17 20:43:00 Jericho Espinosa [facility] POCT-GLUCOSE METER 2020-05-17 16:34:00 Jericho Espinosa [facility] POCT-GLUCOSE METER 2020-05-17 11:21:00 Jericho Espinosa [facility] POCT-GLUCOSE METER 2020-05-17 07:54:00 Jericho Espinosa [facility] BASIC METABOLIC PANEL (7) 2020-05-17 04:56:00 Jesús [facility] CBC (HEMOGRAM ONLY) 2020-05-17 04:56:00 Jericho Espinosa [facility] MAGNESIUM 2020-05-17 04:56:00 Jericho Espinosa [facility] POCT-GLUCOSE METER 2020-05-16 18:06:00 Jesús Jericholubna Marquez [facility] POCT-GLUCOSE METER 2020-05-16 17:17:00 Jericho Espinosa [facility] POCT-GLUCOSE METER 2020-05-16 11:57:00 Jesús Jericholubna Marquez [facility] POCT-GLUCOSE METER 2020-05-16 07:55:00 Jericho Espinosa [facility] BASIC METABOLIC PANEL (7) 2020-05-16 06:16:00 Jesús [facility] CBC (HEMOGRAM ONLY) 2020-05-16 06:16:00 Jericho Espinosa [facility] MAGNESIUM 2020-05-16 06:16:00 Jericho Espinosa [facility] POCT-GLUCOSE METER 2020-05-15 21:13:00 Jericho Espinosa [facility] POCT-GLUCOSE METER 2020-05-15 16:59:00 Jesús Jericholubna Marquez [facility] BASIC METABOLIC PANEL (7) 2020-05-15 11:00:00 Jesús [facility] CBC (HEMOGRAM ONLY) 2020-05-15 11:00:00 Jesús, Jericholubna Marquez [facility] MAGNESIUM 2020-05-15 11:00:00 [facility] POCT-GLUCOSE METER 2020-05-15 07:28:00 [facility] POCT-GLUCOSE METER 2020-05-14 21:56:00 [facility] POCT-GLUCOSE METER 2020-05-14 15:49:00 [facility] XR CHEST 1 VIEW 2020-05-14 14:49:00 [facility] PORTABLE/BEDSIDE [facility] CBC (HEMOGRAM ONLY) 2020-05-14 13:13:00 [facility] POCT-GLUCOSE METER 2020-05-14 12:38:00 [facility] BASIC METABOLIC PANEL (7) 2020-05-14 11:13:00 My Sharma CH, I [facility] ECG 12-LEAD 2020-05-14 10:34:15 [facility] POCT-GLUCOSE METER 2020-05-14 07:48:00 [facility] POCT-GLUCOSE METER 2020-05-13 20:02:00 [facility] POCT-GLUCOSE METER 2020-05-13 16:58:00 [facility] SARS-COV2/RT-PCR ([facility] & 2020-05-13 16:46:00 Josh Ellison [facility] REF [facility] XR CHEST 1 VIEW 2020-05-13 13:18:00 [facility] PORTABLE/[facility] POCT-GLUCOSE METER 2020-05-13 12:33:00 [facility] POCT-GLUCOSE METER 2020-05-13 07:42:00 [facility] POCT-GLUCOSE METER 2020-05-12 20:52:00 [facility] URINE CULTURE 2020-05-12 17:07:00 [facility] SODIUM, RANDOM URINE 2020-05-12 17:07:00 [facility] Jericholubna Marquez [facility] CREATININE, RANDOM URINE 2020-05-12 17:07:00 [facility] Jericholubna riggins [facility] URINALYSIS W/ REFLEX 2020-05-12 17:07:00 [facility] URINE CULTURE [facility] OSMOLALITY, URINE 2020-05-12 17:07:00 [facility] Jericho [facility] POCT-GLUCOSE METER 2020-05-12 17:02:00 [facility] POCT-GLUCOSE METER 2020-05-12 12:25:00 [facility] Marquez [facility] CBC (HEMOGRAM ONLY) 2020-05-12 09:15:00 [facility] COMPREHENSIVE METABOLIC 2020-05-12 09:15:00 [facility] CORTISOL 2020-05-12 09:14:00 Jayce Carranza [facility] POCT-GLUCOSE METER 2020-05-12 07:19:00 [facility] CALCIUM, IONIZED 2020-05-12 04:41:00 Celeste Cornelius [facility] XR CHEST 1 VIEW 2020-05-12 04:33:00 Josh Ellison [facility] PORTABLE/BEDSIDE [facility] POCT-GLUCOSE METER 2020-05-11 21:18:00 [facility] POCT-GLUCOSE METER 2020-05-11 17:41:00 [facility] SARS-COV2/RT-PCR ([facility] & 2020-05-11 16:14:00 Agueda Mae [facility] - REF LABS) [facility] POCT-GLUCOSE METER 2020-05-11 11:30:00 [facility] XR CHEST 1 VIEW 2020-05-11 09:00:00 Lisa Gilliland [facility] - PORTABLE/BEDSIDE [facility] POCT-GLUCOSE METER 2020-05-11 08:45:00 Clayton Reeder [facility] BASIC METABOLIC PANEL (7) 2020-05-11 04:44:00 Terra Josh otto [facility] MAGNESIUM 2020-05-11 04:44:00 Terra Blissfield Néstor [facility] PHOSPHORUS 2020-05-11 04:44:00 Terra [facility] CBC (HEMOGRAM ONLY) 2020-05-11 04:44:00 Terra [facility] CALCIUM, IONIZED 2020-05-11 04:44:00 Celeste Cornelius [facility] PREPARE RBC 2020-05-10 23:54:00 [facility] PREPARE PLASMA 2020-05-10 23:54:00 [facility] POCT-GLUCOSE METER 2020-05-10 21:22:00 [facility] POCT-GLUCOSE METER 2020-05-10 16:24:00 [facility] CALCIUM, IONIZED 2020-05-10 14:39:00 Celeste Cornelius [facility] POCT-GLUCOSE METER 2020-05-10 11:19:00 Edith, [facility] PROTHROMBIN TIME/INR 2020-05-10 08:06:00 Julio Mcintyre [facility] APTT 2020-05-10 08:06:00 Julio Mcintyre [facility] FIBRINOGEN 2020-05-10 08:06:00 Julio Mcintyre [facility] PLATELET COUNT 2020-05-10 08:06:00 Julio Mcintyre [facility] POCT-GLUCOSE METER 2020-05-10 08:05:00 Edith, [facility] BASIC METABOLIC PANEL (7) 2020-05-10 03:45:00 Merchant, Clayton [facility] CBC W/PLT COUNT & AUTO 2020-05-10 03:45:00 Clayton Reeder [facility] MAGNESIUM 2020-05-10 03:45:00 Terra [facility] PHOSPHORUS 2020-05-10 03:45:00 [facility]CI[facility], [facility]ED 2020-05-10 03:45:00 [facility]LO[facility], ARTERIAL 2020-05-10 03:45:00 Oren Corneliusn [facility] TYPE AND SCREEN, 2020-05-10 03:45:00 Celeste Cornelius [facility] XR CHEST 1 VIEW 2020-05-10 01:12[facility] BLOOD GAS, ARTERIAL 2020-05-09 21:12:00 [facility] SODIUM NA-STAT LAB 2020-05-09 21:12:00 Oren Corneliusn [facility] POTASSIUM-STAT LAB 2020-05-09 21:12:00 Oren Corneliusn [facility] GLUCOSE-STAT LAB 2020-05-09 21:12:00 Celeste Cornelius [facility] HGB/HCT (H&H) - STAT LAB 2020-05-09 21:12:00 Celeste Cornelius There [facility] BASIC METABOLIC PANEL (7) 2020-05-09 21:12:00 Celeste Cornelius Ther ganesh [facility] MAGNESIUM 2020-05-09 21:12:00 [facility] PHOSPHORUS 2020-05-09 21:12:00 Celeste Cornelius [facility] CALCIUM, IONIZED 2020-05-09 21:12:00 Celeste Cornelius [facility] POCT-GLUCOSE METER 2020-05-09 20:04:00 Manojt, [facility] BLOOD GAS, ARTERIAL 2020-05-09 19:01:00 Janet Lamar [facility] POCT-GLUCOSE METER 2020-05-09 18:47:00 [facility] POCT-GLUCOSE METER 2020-05-09 16:25:00 [facility] XR CHEST 1 VIEW 2020-05-09 15:46:00 Chilango Angel [facility] PORTABLE/BEDSIDE [facility] CBC W/PLT COUNT & AUTO 2020-05-09 15:32:00 Chilango Angel [facility] BASIC METABOLIC PANEL (7) 2020-05-09 15:30:00 Faheem Morales [facility] BLOOD GAS, ARTERIAL 2020-05-09 15:30:00 Faheem Morales [facility] MAGNESIUM 2020-05-09 15:30:00 Chilango Angel [facility] PHOSPHORUS 2020-05-09 15:30:00 Chilango Angel [facility] APTT 2020-05-09 15:30:00 Chilango Angel [facility] PROTHROMBIN TIME/INR 2020-05-09 15:30:00 Chilango Angel [facility] OXYGEN SATURATION, 2020-05-09 15:30:[address] [facility] LACTIC ACID, ARTERIAL 2020-05-09 15:30:00 Chilango Angel [facility] CALCIUM, IONIZED 2020-05-09 15:29:00 Chilango Angel [facility] TRANSFUSE PLASMA 2020-05-09 13:53:44 Damon Reeves [facility] TRANSFUSE LEUKO-REDUCED 2020-05-09 13:53:28 Damon Reeves [facility] RED BLOOD CELLS [facility] POCT-ACT 2020-05-09 13:41:00 Clayton Reeder [facility] BLOOD GAS, ARTERIAL 2020-05-09 13:34:52 Damon Reeves [facility] PT/APTT 2020-05-09 13:34:52 Damon Reeves [facility] FIBRINOGEN 2020-05-09 13:34:52 Damon Reeves [facility] PLATELET COUNT 2020-05-09 13:34:52 Damon Reeves [facility] SODIUM NA-STAT LAB 2020-05-09 13:34:52 Damon Reeves [facility] POTASSIUM-STAT LAB 2020-05-09 13:34:52 Damon Reeves [facility] GLUCOSE-STAT LAB 2020-05-09 13:34:52 Damon Reeves [facility] HGB/HCT (H&H) - STAT LAB 2020-05-09 13:34:52 Damon Reeves [facility] CBC W/PLT COUNT & AUTO 2020-05-09 13:34:00 Faheem Morales [facility] TRANSFUSE PLASMA 2020-05-09 13:19:27 Damon Reeves [facility] POCT-ACT 2020-05-09 13:16:00 [facility] BLOOD GAS, ARTERIAL 2020-05-09 13:13:55 [facility] SODIUM NA-STAT LAB 2020-05-09 13:13:55 [facility] POT[facility] 2020-05-09 13:13:55 Edith [facility] GLUCOSE-STAT LAB 2020-05-09 13:13:55 [facility] - STAT LAB 2020-05-09 13:13:55 Edith [facility] POCT-ACT 2020-05-09 12:50:00 [facility] BLOOD GAS, ARTERIAL 2020-05-09 12:45:36 [facility] SODIUM NA-STAT LAB 2020-05-09 12:45:36 Edith [facility] POTASSIUM-STAT LAB 2020-05-09 12:45:36 Edith [facility] GLUCOSE-STAT LAB 2020-05-09 12:45:[address] [facility] HGB/HCT (H&H) - STAT LAB 2020-05-09 12:45:36 Edith [facility] TRANSFUSE LEUKO-REDUCED 2020-05-09 12:29:[address] [facility] POCT-ACT 2020-05-09 12:11:00 Manojt [facility] BLOOD GAS, VENOUS 2020-05-09 12:07:08 Edith [facility] BLOOD GAS, ARTERIAL 2020-05-09 12:07:02 [facility]raKael [facility] SODIUM NA-STAT LAB 2020-05-09 12:07:02 Edith [facility] POTASSIUM-STAT LAB 2020-05-09 12:07:02 Edith [facility] GLUCOSE-STAT LAB 2020-05-09 12:07:[address] [facility] HGB/HCT (H&H) - STAT LAB 2020-05-09 12:07:02 Edith [facility] TRANSFUSE LEUKO-REDUCED 2020-05-09 12:03:12 Damon Reeves [facility] RED [facility] POCT-ACT 2020-05-09 11:35:00 Merchant, Clayton [facility] BLOOD GAS, ARTERIAL 2020-05-09 10:40:19 Damon Reeves [facility] SODIUM NA-STAT LAB 2020-05-09 10:40:19 Damon Reeves [facility] POTASSIUM-STAT LAB 2020-05-09 10:40:19 Damon Reeves [facility] GLUCOSE-STAT LAB 2020-05-09 10:40:19 Damon Reeves [facility] HGB/HCT (H&H) - STAT LAB 2020-05-09 10:40:19 Damon Reeves [facility] TRANSFUSE LEUKO-REDUCED 2020-05-09 10:36:34 Damon Reeves [facility] RED BLOOD CELLS [facility] BYPASS,AORTO CORONARY 2020-05-09 09:04:00 Edith [facility] SELMA/SVG [facility] ENDOSCOPIC HARVEST,VEIN 2020-05-09 09:04:00 Edith [facility] SAMSON 2020-05-09 09:04:00 [facility] PLATELET AGGREGATION: 2020-05-09 08:22:00 [facility] FUNCTION SCREEN [facility] BASIC METABOLIC PANEL (7) 2020-05-09 08:22:00 Merchant [facility] CBC W/PLT COUNT & AUTO 2020-05-09 08:22:00 [facility] MAGNESIUM 2020-05-09 08:22:00 Faheem Morales [facility] PHOSPHORUS 2020-05-09 08:22:00 Faheem Morales [facility] POCT-GLUCOSE METER 2020-05-09 07:20:00 [facility] POCT-GLUCOSE METER 2020-05-08 21:15:00 [facility] POCT-GLUCOSE METER 2020-05-08 15:54:00 [facility] POCT-GLUCOSE METER 2020-05-08 12:12:00 [facility] PLATELET AGGREGATION: 2020-05-08 11:40:00 [facility] FUNCTION SCREEN [facility] BASIC METABOLIC PANEL (7) 2020-05-08 11:40:00 [facility] CBC W/PLT COUNT & AUTO 2020-05-08 11:40:00 Merchant [facility] POCT-GLUCOSE METER 2020-05-08 08:11:00 Merchant [facility] POCT-GLUCOSE METER 2020-05-07 21:01:00 [facility] HEMOGLOBIN A1C 2020-05-07 18:17:00 [facility] POCT-GLUCOSE METER 2020-05-07 17:15:00 [facility] ECG 12-LEAD 2020-05-07 17:02:29 [facility] PROTHROMBIN TIME/INR 2020-05-07 16:16:00 [facility] APTT 2020-05-07 16:16:00 [facility] POCT-GLUCOSE METER 2020-05-07 12:38:00 [facility] BASIC METABOLIC PANEL (7) 2020-05-07 06:36:00 Raul Mag[facility] MAGNESIUM 2020-05-07 06:36:00 Raul [facility] CBC W/PLT COUNT & AUTO 2020-05-07 06:36:00 [facility] LIPID PANEL 2020-05-07 06:36:00 [facility] PLATELET AGGREGATION: 2020-05-07 06:35:00 Mariana Gallardo [facility] FUNCTION SCREEN [facility] C. DIFFICILE GDH TOXIN 2020-05-06 21:48:00 [facility] POCT-GLUCOSE METER 2020-05-06 21:03:00 [facility] SARS-COV2/RT-PCR ([facility] & 2020-05-06 20:41:00 Josh Ellison [facility] - REF LABS) Medical Center ABORH, MANUAL 2020-05-06 20:41:00 Nadege Biswas [facility] POCT-GLUCOSE METER 2020-05-06 18:13:00 Clayton Reeder [facility] XR CHEST 2 VIEWS 2020-05-06 17:14:[address] [facility] ARTERIAL DOPPLER LEGS 2020-05-06 17:00:00 Sriram Denis CH I [facility] - INGA [facility] HC CAROTID DOPPLER INGA 2020-05-06 17:00:00 Gregory Bacon [facility] HC VENOUS DOPPLER EXT INGA 2020-05-06 17:00:00 Gregory Bacon [facility] HC ARTERIAL(NICOLE W 2020-05-06 15:57:00 Sriram Denis [facility] - DOPPLER)ONLY [facility] HEMOGLOBIN A1C 2020-05-06 13:01:00 [facility] TYPE AND SCREEN, 2020-05-06 13:01:00 Mariana Gallardo [facility] POCT-GLUCOSE METER 2020-05-06 11:40:00 [facility] POCT-GLUCOSE METER 2020-05-06 08:47:00 [facility] BASIC METABOLIC PANEL (7) 2020-05-06 06:05:00 Raul Magaña [facility] MAGNESIUM 2020-05-06 06:05:00 Raul [facility] CBC W/PLT COUNT & AUTO 2020-05-06 06:05:00 [facility] POCT-GLUCOSE METER 2020-05-05 20:59:00 Merchant [facility] PLATELET AGGREGATION: 2020-05-05 20:42:00 Sriram Denis [facility] - FUNCTION SCREEN [facility] ECG 12-LEAD 2020-05-05 18:39:47 Sriram Denis [facility] - [facility] POCT-GLUCOSE METER 2020-05-05 16:54:00 Clayton Reeder [facility] 2D ECHO W/ DOPPLER 2020-05-05 13:16:31 Raul Magaña [facility] (CW/PW/COLOR) [facility] POCT-GLUCOSE METER 2020-05-05 11:57:00 Clayton Reeder [facility] 2D ECHO W/ DOPPLER 2020-05-05 11:33:22 Sriram Denis [facility] - (CW/PW/COLOR) [facility] BASIC METABOLIC PANEL (7) 2020-05-05 05:20:00 aRul Magaña [facility] MAGNESIUM 2020-05-05 05:20:00 Raul Magaña [facility] LIPID PANEL 2020-05-05 05:20:00 Raul Magaña [facility] HEMOGLOBIN A1C 2020-05-05 05:20:00 Raul Magaña [facility] PROTHROMBIN TIME/INR 2020-05-05 05:20:00 Raul Magaña [facility] I [facility] CBC W/PLT COUNT & AUTO 2020-05-05 05:20:00 Raul Magaña [facility] VASCULAR DIAGRAM -SCAN 2020-05-04 00:00:00 ProviderMuna [facility] Plan of Care Planned Activity Planned Date Details Comments Source Future Scheduled 2020-08-[address] [facility] - Test 00:00:00 [facility] Center (procedure) [code = 31336707] Future Scheduled 2020-06-[address] [facility] - Test 00:00:00 (12+) [code = Medical Center DEPRESSION SCREENING (12+)] Future Scheduled 2020-02-24 INFLUENZA VACCINE (#1) C [...] 00:00:00 (1 of 1 - Medical Center [id number] PCV13) [code = PNEUMOCOCCAL 65+ YRS (1 of 1 - [id number] PCV13)] Future Scheduled 1999 SHINGLES VACCINES ([address] [facility] - Test 00:00:00 of 2) [code = SHINGLES Medic al Center VACCINES (1 of 2)] Future Scheduled 1968 DTAP/TDAP/TD VACCINES [facility] - Test 00:00:00 (1 - Tdap) [code = Medical C enter DTAP/TDAP/TD VACCINES (1 - Tdap)] Future Scheduled 1967 HEPATITIS C [facility]00 [code = [facility]ITIS C [facility] SCREENING] Future Scheduled [address] EYE EXAM [facility] 00:00:00 [code = DIABETIC EYE [facility] EXAM] Future Scheduled [address] [facility] (regime/therapy) [code = 606936964] Future Scheduled 1959 Urine screening for [facility] - Test 00:00:00 protein (procedure) Medical Center [code = 168781189] Future Scheduled [address] [facility] 00[facility] colon (procedure) [code = 242588385] Results Test Description Test Time Test Comments Results Result Sourc e Comments VASCULAR DIAGRAM 2020-05-24 [facility] an [facility] 13:12:38 unspecified - Medical provider. Center POC-Glucose meter 2020-05-18 11:50:00 Test Item Value Reference Range Interpretation Comme nts POC-Glucose Meter (test code = 236 mg/dL 70-110 H : TESTED AT [facility] 67[address] [facility] 5866) [facility], [facility] 30: Contact And Service Clerks Supervisor/Techni josephine ID = [id number] for Huan GONZALEZ Lab Interpretation (test code = Abnormal 35423-4) [facility] [id number] 11:50:00 Test Item Value Reference Range Interpretation Comments POC-GLUCOSE METER 236 mg/dL 70-110 H : [facility] 6720 (BEAKER) (test code = [facility], [facility]) [address]: Contact And Service Clerks Supervisor/Techni josephine ID = [id number] for NIETORARaul POCT-GLUCOSE [id number] 08:12:00 Test Item Value Reference Range Interpretation Comments POC-GLUCOSE METER 82 mg/dL 70-110 : TESTED A T [facility] 6720 (BEAKER) (test code = [facility], [facility]) 27956: Contact And Service Clerks Supervisor/Techni josephine ID = [id number] for RICARDO CONNOLLY POCT-GLUCOSE [id number] 07:30:00 Test Item Value Reference Range Interpretation Comments POC-GLUCOSE METER 156 mg/dL 70-110 H : TESTED A T [facility] 6720 (BEAKER) (test code = [facility], [facility]) 76373: Contact And Service Clerks Supervisor/Techni josephine ID = [id number] for TATIANNA REDDY POCT-GLUCOSE [id number] 00:04:00 Test Item Value Reference Range Interpretation Comments POC-GLUCOSE METER 104 mg/dL 70-110 : TESTED A T [facility] 6720 (BEAKER) (test code = [facility], [facility]) 10261: Contact And Service Clerks Supervisor/Techni joesphine ID = [id number] for TAO HUDSON POCT-GLUCOSE [id number] 16:45:00 Test Item Value Reference Range Interpretation Comments POC-GLUCOSE METER 161 mg/dL 70-110 H : TESTED A T [facility] 6720 (BEAKER) (test code = [facility], [facility]) 10384: Contact And Service Clerks Supervisor/Techni josephine ID = [id number] for ERNESTO-CARTER, S HIKARA POCT-GLUCOSE [id number] 12:54:00 Test Item Value Reference Range Interpretation Comments POC-GLUCOSE METER 160 mg/dL 70-110 H : TESTED A T [facility] 6720 (BEAKER) (test code = [facility], [facility]) 35340: Contact And Service Clerks Supervisor/Techni josephine ID = [id number] for ERNESTO-CARTER, S HIKARA POCT-GLUCOSE [id number] 12:54:00 Test Item Value Reference Range Interpretation Comments POC-GLUCOSE METER 103 mg/dL 70-110 : TESTED A T [facility] 6720 (BEAKER) (test code = [facility] [place], 1538) [address]: Contact And Service Clerks Supervisor/Techni josephine ID = [id number] for Adam WHEAT Basic Metabolic [id number] 05:59:00 Test Item Value Reference Range Interpretation Comments Sodium (test code = 135 meq/L 136-145 L 2951-2) Potassium (test code = 3.5 meq/L 3.5-5.1 2823-3) Chloride (test code = 97 meq/L 98-107 L 2075-0) CO2 (test code = 31 meq/L 22-29 H 2028-9) BUN (test code = 16 mg/dL 7-21 3094-0) Creatinine (test code 0.75 mg/dL 0.57-1.25 = 2160-0) Glucose (test code = 123 mg/dL 70-105 H 2345-7) Calcium (test code = 7.9 mg/dL 8.4-10.2 L 36085-0) EGFR (test code = 103 mL/min/1.73 sq m [place] [address]-5) NOT ACCURATE CREATININE CLEARANCE IN PREDICTING GLOMERULAR FILTRATION RATE . ESTIMATED GFR I S NOT APPLICABLE FOR DIALYSIS PATIENTS. BARRON (test code = BARRON) Contact And Service Clerks Supervisor ID - SUE L Lab Interpretation Abnormal (test code = 75756-2) [facility]2020-11-23 05:59:00 Test Item Value Reference Range Interpretation Comments Magnesium (test code = 1.8 mg/dL 1.6-2.6 21533-7) BARRON (test code = BARRON) Contact And Service Clerks Supervisor ID - SUE L Lab Interpretation (test Normal code = 47291-9) [facility]2020-11-23 05:59:00 Test Item Value Reference Range Interpretation Comments MAGNESIUM (BEAKER) (test code = 1.8 mg/dL 1.6-2.6 627) Contact And Service Clerks Supervisor ID - SUE BOSSASIC METABOLIC [id number] 05:59:00 Test Item Value Reference Range Interpretation [...] S NOT APPLICABLE FOR DIALYSIS PATIEN TS. Contact And Service Clerks Supervisor ID - PIAYA LCBC (Hemogram only)2020-05-17 05:38:00 Test Item Value Reference Range Interpretation Comments WBC (test code = 6690-2) 7.0 See_Comment [A utomated message] The system ITelagen generated this result transmitted ref erence range: 3.5 - 10 .5 K/L. The refe rence range was not u sed to interpret this result as normal/abnor mal. RBC (test code = 789-8) 3.39 See_Comment L [Au tomated message] The system ITelagen generated this result transmitted ref erence range: 4.63 - 6 .08 M/L. The refe rence range was not u sed to interpret this result as normal/abnor mal. MCHC (test code = 786-4) 32.2 See_Comment L [A utomated message] The system ITelagen generated this result transmitted ref erence range: 32.3 - 3 6.5 GM/DL. The refe rence range was not u sed to interpret this result as normal/abnor mal. Hematocrit (test code = 32.3 % 40.1-51 L 4544-3) MCV (test code = 787-2) 95.3 fL 79-92.2 H MCH (test code = 785-6) 30.7 pg 25.7-32.2 RDW (test code = 788-0) 14.0 % 11.6-14.4 Platelets (test code = 233 See_Comment [Aut omated message] 777-3) The system ITelagen generated this result transmitted ref erence range: 150 - 45 0 K/CU MM. The referen ce range was not u sed to interpret this result as normal/abnor mal. MPV (test code = 9.1 fL 9.4-12.4 L 02112-4) nRBC (test code = 413) 0 See_Comment [Aut omated message] The system ITelagen generated this result transmitted ref erence range: 0 - 0 /1 00 WBC. The refere nce range was not u sed to interpret this result as normal/abnor mal. Lab Interpretation (test Abnormal code = 54766-9) [facility] (HEMOGRAM ONLY)2020-05-17 05:38:00 Test Item Value Reference [...] 0-0 (BEAKER) (test code = 413) POCT-GLUCOSE [id number] 18:18:00 Test Item Value Reference Range Interpretation Comments POC-GLUCOSE METER 97 mg/dL 70-110 : TESTED A T [facility] 6720 (BEAKER) (test code = [facility] Denny [facility], 1538) [address]: Contact And Service Clerks Supervisor/Techni josephine ID = [id number] for GABE LEE POCT-GLUCOSE [id number] 17:29:00 Test Item Value Reference Range Interpretation Comments POC-GLUCOSE METER 66 mg/dL 70-110 L : Notified RN/MD: TESTED (BEAKER) (test code = AT [facility] 67[address] [facility] 1538) [facility], 770 30: Contact And Service Clerks Supervisor/Techni josephine ID = [id number] for GABE LEE POCT-GLUCOSE [id number] 12:11:00 Test Item Value Reference Range Interpretation Comments POC-GLUCOSE METER 124 mg/dL 70-110 H : TESTED A T [facility] 6720 (BEAKER) (test code = [facility] Denny [facility], 1538) 26957: Contact And Service Clerks Supervisor/Techni josephine ID = [id number] for GABE MILLS POCT-GLUCOSE [id number] 08:07:00 Test Item Value Reference Range Interpretation Comments POC-GLUCOSE METER 141 mg/dL 70-110 H : TESTED A T [facility] 6720 (BEAKER) (test code = [facility], 1538) 89952: Contact And Service Clerks Supervisor/Techni josephine ID = [id number] for GABE MILLS BASIC METABOLIC [id number] 06:56:00 Test Item Value Reference Range Interpretation [...] 697) EGFR (BEAKER) (test 91 mL/min/1.73 ESTIMA LESLIE GFR IS code = 1092) sq m NOT ACCURATE CREATININE CLEARANCE IN PREDICTING GLOMERULAR FILTRATION RATE . ESTIMATED GFR I S NOT APPLICABLE FOR DIALYSIS PATIEN TS. Contact And Service Clerks Supervisor ID - SUE [id number] 06:56:00 Test Item Value Reference Range Interpretation Comments MAGNESIUM (BEAKER) (test code = 1.8 mg/dL 1.6-2.6 627) Contact And Service Clerks Supervisor ID Marian ROGERS LCBC (HEMOGRAM ONLY)2020-05-16 06:35:00 Test Item Value [...] 0-0 (BEAKER) (test code = 413) POCT-GLUCOSE [id number] 21:25:00 Test Item Value Reference Range Interpretation Comments POC-GLUCOSE METER 253 mg/dL 70-110 H : TESTED A T [facility] 6720 (BEAKER) (test code = [facility], 1538) 15[address]: Contact And Service Clerks Supervisor/Techni josephine ID = [id number] for RO LUIZ, ROSS POCT-GLUCOSE [id number] 17:11:00 Test Item Value Reference Range Interpretation Comments POC-GLUCOSE METER 310 mg/dL 70-110 H : TESTED A T [facility] 6720 (BEAKER) (test code = [facility] [place], 1538) [address]: Contact And Service Clerks Supervisor/Techni josephine ID = [id number] for Lindsay Cid ECG 12 [id number] 16:15:17Interface, External Ris In - 05/15/2020 4:15 PM CSTVentricular Rate 78 BPMAtrial Rate 78 BPMP-R Interval 152 msQRS Duration 78 msQ-T Interval 376 msQTC Calculation(Bazett) 428 msP [place] 22 degreesR [place] 35 degreesT [place] 11 degreesNormal sinus rhythmLow voltage QRSAbnormal ECGWhen compared with ECG of 07-MAY-2020 17:02,Significant changes have occurredConfirmed by MD Guido Roberto ([id number]) on 05/15/2020 4:15:12 PM [facility] METABOLIC [id number] 11:51:00 Test Item Value Reference Range Interpretation [...] 697) EGFR (BEAKER) (test 72 mL/min/1.73 ESTIMA LESLIE GFR IS code = 1092) sq m NOT ACCURATE CREATININE CLEARANCE IN PREDICTING GLOMERULAR FILTRATION RATE . ESTIMATED GFR I S NOT APPLICABLE FOR DIALYSIS PATIEN TS. Contact And Service Clerks Supervisor ID - PATRICIA [id number] 11:51:00 Test Item Value Reference Range Interpretation Comments MAGNESIUM (BEAKER) (test code = 1.7 mg/dL 1.6-2.6 627) Contact And Service Clerks Supervisor ID - PATRICIA CCBC (HEMOGRAM ONLY)2020-05-15 11:26:00 [...] 0-0 (BEAKER) (test code = 413) POCT-GLUCOSE [id number] 07:40:00 Test Item Value Reference Range Interpretation Comments POC-GLUCOSE METER 223 mg/dL 70-110 H : TESTED A T [facility] 6720 (BEAKER) (test code = [facility], 1538) [address]36: Contact And Service Clerks Supervisor/Techni josephine ID = [id number] for PalakGenetLindsay POCT-GLUCOSE [id number] 22:08:00 Test Item Value Reference Range Interpretation Comments POC-GLUCOSE METER 148 mg/dL 70-110 H : TESTED A T [facility] 6720 (BEAKER) (test code = [facility], 1538) 765[address]: Contact And Service Clerks Supervisor/Techni josephine ID = [id number] for Le rma, Debbie SARS-CoV2/RT-PCR (Asymptomatic ONLY)2020-05-14 16:01:00 Test Item Value Reference Range Interpretation Comments SARS-COV2/RT-PCR Negative Not Detected, (test code = Negative, See 32956-3) external report for linked test SARS-COV-2 [facility] PERFORMING LAB (test code = 47026-7) BARRON (test code = Negative result for [...] the Act. Testing was performed using the [employer] SARS-CoV-2 assay. Fact Sheet for Healthcare Providers:https://www.rosa short.bello/robyn/RT_SA VY-CfE-7_XIF_Vbyd_Zrvbk_ 51-668845.pdf Fact Sheet for Healthcare Patients:https://www.padmini Tradersmail.comchey.[employer]/robyn/RT_SAR V-VkR-6_Ybgxgck_Jafj_Fpr et_EN_51-947600I8.pdf Performing Laboratory:[facility] [place] [address] [facility] HospitalPO[facility]SE [id number] 16:01:00 Test Item Value Reference Range Interpretation Comments POC-GLUCOSE METER 189 mg/dL 70-110 H : TESTED A T [facility] 6720 (DELFINA) (test code = [facility], 1538) 47263: Contact And Service Clerks Supervisor/Techni josephine ID = [id number] for Lindsay Cid SARS-COV2/RT-PCR ([facility])2020-05-14 16:01:00 Test Item Value Reference Range Interpretation Comments SARS-COV2/RT-PCR (test Negative Not Detected, Negative, code = 2267443) See external report for linked test SARS-COV-2 PERFORMING LAB [facility] (test code = 4591595) Negative result for this test determines that [...] the Bello SARS-CoV-2 assay.Fact Sheet for Healthcare Providers:https://www.TastemakerX.bello/robyn/ XM_ZDDX-LgM-0_USG_Fzhu_Fbyoq_78-727228.pdfFact Sheet for Healthcare Patients:https://www.TastemakerX.IdeaSquares froilan/robyn/BK_DIFN-VjL-7_Cnkkedn_Beds_Tgeia_QI_94-902379Y6.pdfPerforming Laboratory:[facility] [place] [address] RAD, CHEST, 1 VIEW, NON [id number] 15:49:00Reason for exam:->chest painShould this be performed at the bedside?->Yes [facility] : 1950 Sex: MFINAL REPORT CLINICAL HISTORY: chest pain TECHNIQUE: 1 view of the chest. COMPARISON: 05/13/2020 IMPRESSION: There is no definitive evidence for pneumothorax. Bilateral lower lung opacities have decreased. A small left pleural effusion appears decreased. The cardiomediastinal silhouette is magnified by technique with sternotomy wires. Signed: Elaine Beckeport Verified Date/Time: 05/14/2020 15:49:04 Reading Location: [facility] Radiology Reading Room XR chest 1 view portable / [id number] 15:49:00 Interface, External Ris In - 05/14/2020 3:51 PM CSTFINAL REPORT CLINICAL HISTORY: chest pain TECHNIQUE: 1 view of the chest. COMPARISON: 05/13/2020 IMPRESSION: There is no definitive evidence for pneumothorax. Bilateral lower lung opacities have decreased. A small left pleuraleffusion appears decreased. The cardiomediastinal silhouette is magnified by technique with sternotomy wires. Signed: Elaine Beck MDReport Verified Date/Time: 05/14/2020 15:49:04 Reading Location: [facility] Radiology Reading Room [facility] (HEMOGRAM ONLY)2020-05-14 13:33:00 Test Item Value Reference [...] 0-0 (BEAKER) (test code = 413) POCT-GLUCOSE [id number] 12:50:00 Test Item Value Reference Range Interpretation Comments POC-GLUCOSE METER 179 mg/dL 70-110 H : TESTED A T [facility] 6720 (BEAKER) (test code = [facility], 1538) [address]110[address]: Contact And Service Clerks Supervisor/Techni josephine ID = [id number] for Palak, Lindsay BASIC METABOLIC [id number] 11:45:00 Test Item Value Reference Range Interpretation [...] 697) EGFR (BEAKER) (test 85 mL/min/1.73 ESTIMA LESLIE GFR IS code = 1092) sq m NOT ACCURATE CREATININE CLEARANCE IN PREDICTING GLOMERULAR FILTRATION RATE . ESTIMATED GFR I S NOT APPLICABLE FOR DIALYSIS PATIEN TS. Contact And Service Clerks Supervisor ID - PAZIANGPOCT-GLUCOSE [id number] 08:00:00 Test Item Value Reference Range Interpretation Comments POC-GLUCOSE METER 211 mg/dL 70-110 H : TESTED A T [facility] 6720 (BEAKER) (test code = [facility], 1538) 00643: Contact And Service Clerks Supervisor/Techni josephine ID = [id number] for Palak, Lindsay POCT-GLUCOSE [id number] 20:13:00 Test Item Value Reference Range Interpretation Comments POC-GLUCOSE METER 181 mg/dL 70-110 H : TESTED A T [facility] 6720 (BEAKER) (test code = [facility], 1538) 37942: Contact And Service Clerks Supervisor/Techni josephine ID = [id number] for Re yes, Sairy POCT-GLUCOSE [id number] 17:11:00 Test Item Value Reference Range Interpretation Comments POC-GLUCOSE METER 247 mg/dL 70-110 H : TESTED A T [facility] 6720 (DELFINA) (test code = [facility], 1538) 80462: Contact And Service Clerks Supervisor/Techni josephine ID = [id number] for OR JOSE MANUEL VELASCO RAD, CHEST, 1 VIEW, NON [id number] 14:31:00Reason for exam:- >HypoxiaShould this be performed at the bedside?->Yes [facility] : 1950 Sex: MFINAL REPORT CLINICAL HISTORY: Hypoxia TECHNIQUE: 1 view of the chest. COMPARISON: 05/12/2020 IMPRESSION: There is a trace left apical pneumothorax. Left greater than rightlower lung opacities are again seen along with a small left pleural effusion. The cardiomediastinal silhouette is magnified by technique with sternotomy wires. Signed: Elaine Beckort Verified Date/Time: 05/13/2020 14:31:31 Reading Location: [facility] Radiology Reading Room POCT-GLUCOSE [id number] 12:44:00 Test Item Value Reference Range Interpretation Comments POC-GLUCOSE METER 350 mg/dL 70-110 H : TESTED A T [facility] 6720 (BEJAGRUTI) (test code = [facility] [place], 1538) 28732: Contact And Service Clerks Supervisor/Techni josephine ID = [id number] for OR KRISTA, JOSE MANUEL POCT-GLUCOSE [id number] 07:56:00 Test Item Value Reference Range Interpretation Comments POC-GLUCOSE METER 218 mg/dL 70-110 H : TESTED A T [facility] 6720 (DELFINA) (test code = [facility], 1538) 33795: Contact And Service Clerks Supervisor/Techni josephine ID = [id number] for OR JOSE MANUEL VELASCO POCT-GLUCOSE [id number] 21:04:00 Test Item Value Reference Range Interpretation Comments POC-GLUCOSE METER 262 mg/dL 70-110 H : TESTED A T [facility] 6720 (BEJAGRUTI) (test code = [facility], 1538) 14535: Contact And Service Clerks Supervisor/Techni josephine ID = [id number] for Re yes, Sairy Creatinine, random [id number] 17:27:00 Test Item Value Reference Range Interpretation Comments Creatinine, Ur 119.5 mg/dL (test code = 2161-8) BARRON (test code = Reference Range: No BARRON) NormalsOperator ID - BS [facility] Gardensodium, random [id number] 17:27:00 Test Item Value Reference Range Interpretation Comments Sodium Urine (test 29 meq/L code = 2955-3) BARRON (test code = Reference Range: No BARRON) NormalsOperator ID - BS [facility] HospitalCREATININE, RANDOM [id number] 17:27:00 Test Item Value Reference Range Interpretation Comments CREATININE URINE (BEAKER) (test 119.5 mg/dL code = 375) Reference Range: No NormalsOperator ID - BSSODIUM, RANDOM [id number] 17:27:00 Test Item Value Reference Range Interpretation Comments SODIUM URINE (BEAKER) (test code = 29 meq/L 243) Reference Range: No NormalsOperator ID - BSUrinalysis w/Microscopic + Reflex to [id number] 17:22:00 Test Item Value Reference Range Interpretation Comments Color, UA (test code Yellow = 5778-6) Clarity, UA (test Hazy code = 5767-9) Specific [place], UA 1.029 1.001-1.035 (test code = 5811-5) pH, UA (test code = 6.0 5.0-8.0 5803-2) Protein, UA (test 30 mg/dL Negative A code = 59093-1) Glucose, UA (test >1000 mg/dL Negative A code = 365) Ketones, UA (test 10 mg/dL Negative A code = 2514-8) Bilirubin, UA (test Negative Negative code = 12050-3) Blood, UA (test code Negative Negative = 98130-4) Nitrite, UA (test Negative Negative code = 5802-4) Leukocytes, UA (test Negative Negative code = 5799-2) Urobilinogen, UA 0.2 mg/dL 0.2-1 (test code = 24739-6) RBC, UA (test code = 31 See_Comment [Autom ated 96170-5) message] The system which generated this result transmit leslie reference range : /HPF. The reference range was not used to interpret this result as normal/abnormal . WBC, UA (test code = 11 See_Comment [Autom ated 5821-4) message] The system which generated this result transmit leslie reference range : /HPF. The reference range was not used to interpret this result as normal/abnormal . Mucus (test code = Rare 8247-9) Yeast (test code = Many 30121-0) Specimen Source (test code = 2795) BARRON (test code = BARRON) Contact And Service Clerks Supervisor ID - [auto]Contact And Service Clerks Supervisor ID - tech Lab Interpretation Abnormal (test code = 63835-8) [facility]UR[facility] W/ REFLEX URINE [id number] 17:22:00 Test Item Value Reference Range Interpretation [...] 1585) Many SOURCE(BEAKER) (test code = 2795) Contact And Service Clerks Supervisor ID - [auto]Contact And Service Clerks Supervisor ID - techOsmolality, [id number] 17:20:00 Test Item Value Reference Range Interpretation Comments Osmolality, Ur (test code 744 See_Comment [ Automated message] = 2695-5) The system ITelagen generated this result transmitted ref erence range: 50-1,200 mOsm/kg mOsm/kg . The reference range was not used to int erpret this result as normal/abnormal . Lab Interpretation (test Normal code = 56654-6) [facility] HospitalOSMOLALITY, [id number] 17:20:00 Test Item Value Reference Range Interpretation Comments OSMOLALITY URINE (BEAKER) (test 744 mOsm/kg 50-1,200 mOsm/kg code = 614) POCT-GLUCOSE [id number] 17:14:00 Test Item Value Reference Range Interpretation Comments POC-GLUCOSE METER 272 mg/dL 70-110 H : TESTED A T [facility] 6720 (BEAKER) (test code = [facility], 1538) 22146: Contact And Service Clerks Supervisor/Techni josephine ID = [id number] for OR PHEY, JOSE MANUEL POCT-GLUCOSE [id number] 12:37:00 Test Item Value Reference Range Interpretation Comments POC-GLUCOSE METER 341 mg/dL 70-110 H : TESTED A T [facility] 6720 (BEAKER) (test code = [facility], 1538) 67240: Contact And Service Clerks Supervisor/Techni josephine ID = [id number] for OR PHEY, JOSE MANUEL SARS-COV2/RT-PCR ([facility])2020-05-12 11:22:00 Test Item Value Reference Range Interpretation Comments SARS-COV2/RT-PCR (test Negative Not Detected, Negative, code = 8758367) See external report for linked test SARS-COV-2 [facility] (test code = 2660408) Negative result for this test determines that [...] 564(g) of the Act.Fact Sheet for Healthcare Providers:https://www.[employer].StudyApps/sites/default/files/product/documents/Fact_Shee o_CL_Fgpgpsaic_Tjss_AGMB-LaS-2.pdfFact Sheet for Healthcare Patients:https://www.[employer].StudyApps/sites/default/files/product/ documents/Chnr_Zokml_Yubbvigl_Wibi_ITTK-TiP-8.pdfPerforming Laboratory:[facility], [place] [address]NAD, CHEST, 1 VIEW, NON [id number] 10:47:00Reason for exam:->s/p ACBShould this be performed at the bedside?->Yes [facility]ENTER[facility] KI[facility]RA RUFF[facility] : 1950 Sex: MFINAL REPORT CLINICAL HISTORY: s/p ACB TECHNIQUE: 1 view of the chest. COMPARISON: 05/11/2020 IMPRESSION: Left lung base pleural parenchymal opacity is unchanged. There are mildly increased lung markings elsewhere. The cardiomediastinal silhouette is magnified by technique with sternotomy wires. Signed: Elaine Beck MDReport Verified Date/Time: 05/12/2020 10:47:12 Reading Location: [facility] Radiology Reading Room Electronically signed by: ELAINE BECK M.D.on 05/12/2020 10:47 AMComprehensive metabolic panel 2020-05-12 10:24:00 Test Item Value Reference Range Interpretation Comments Protein, Total (test 5.4 See_Comment L [Autom ated code = 2885-2) message] The system which generated this result transmit leslie reference range : 6.0 - 8.3 gm/dL . The reference range was not u sed to interpret th is result as normal/abnormal . Albumin (test code = 2.8 g/dL 3.5-5 L 15240-3) Alkaline Phosphatase 91 U/L 40-150 (test code = 6768-6) Total Bilirubin (test 0.7 mg/dL 0.2-1.2 code = 1975-2) Sodium (test code = 129 meq/L 136-145 L 2951-2) Potassium (test code 4.3 meq/L 3.5-5.1 = 2823-3) Chloride (test code = 93 meq/L 98-107 L 2075-0) CO2 (test code = 26 meq/L 22-29 2027-9) BUN (test code = 18 mg/dL 7- 3094-0) Creatinine (test code 1.13 mg/dL 0.57-1.25 = 2160-0) Glucose (test code = 322 mg/dL 70-105 H 2345-7) Calcium (test code = 8.5 mg/dL 8.4-10.2 49187-1) AST (test code = 13 U/L 5-34 1920-8) ALT (test code = 14 U/L 6-55 1742-6) EGFR (test code = 64 mL/min/1.73 [place] [address]-0) NOT ACCURATE CREATININE CLEARANCE IN PREDICTING GLOMERULAR FILTRATION RATE . ESTIMATED GFR I S NOT APPLICABLE FOR DIALYSIS PATIEN TS. MART (test code = BARRON) Contact And Service Clerks Supervisor ID - PATRICIA C Lab Interpretation Abnormal (test code = 75464-5) [facility]COM[facility] [id number] 10:24:00 Test Item Value Reference Range Interpretation [...] 347) EGFR (BEAKER) (test 64 mL/min/1.73 ESTIMA LESLIE GFR IS code = 1092) sq m NOT ACCURATE CREATININE CLEARANCE IN PREDICTING GLOMERULAR FILTRATION RATE . ESTIMATED GFR I S NOT APPLICABLE FOR DIALYSIS PATIEN TS. Contact And Service Clerks Supervisor ID - PATRICIA [id number] 10:13:00 Test Item Value Reference Range Interpretation Comments Cortisol, Total (test code 16.9 ug/dL 3.7-19.4 = 2755) BARRON (test code = BARRON) Contact And Service Clerks Supervisor ID - PATRICIA C Lab Interpretation (test Normal code = 52310-6) [facility] HospitalCORTISOL2020-11-18 10:13:00 Test Item Value Reference Range Interpretation Comments CORTISOL, TOTAL (BEAKER) (test 16.9 ug/dL 3.7-19.4 code = 2755) Contact And Service Clerks Supervisor ID - PATRICIA CCBC (HEMOGRAM ONLY)2020-05-12 09:43:00 [...] 0-0 (BEAKER) (test code = 413) POCT-GLUCOSE [id number] 07:33:00 Test Item Value Reference Range Interpretation Comments POC-GLUCOSE METER 282 mg/dL 70-110 H : TESTED A T [facility] 6720 (BEAKER) (test code = [facility], 153) [address]151: Contact And Service Clerks Supervisor/Techni josephine ID = [id number] for OR JOSE MANUEL VELASCO Calcium, [id number] 05:09:00 Test Item Value Reference Range Interpretation Comments Calcium, Ion (test code = 1.09 mmol/L 1.12-1.27 L 1993-08) pH, Blood (test code = 7.41 34752-2) BARRON (test code = BARRON) Check serum Ionized Calcium level after 4 hours after IV Calcium replacement. Lab Interpretation (test Abnormal code = 75985-4) [facility] HospitalCALCIUM, [id number] 05:09:00 Test Item Value Reference Range Interpretation Comments CALCIUM IONIZED (BEAKER) (test 1.09 mmol/L 1.12-1.27 L code = 698) PH, BLOOD (BEAKER) (test code = 7.41 1810) Check serum Ionized Calcium level after 4 hours after IV Calcium replacement. POCT-GLUCOSE [id number] 21:31:00 Test Item Value Reference Range Interpretation Comments POC-GLUCOSE METER 330 mg/dL 70-110 H : TESTED A T [facility] 6720 (BEAKER) (test code = [facility], 153) 62375: Contact And Service Clerks Supervisor/Techni josephine ID = [id number] for CARLOTA GUTHRIEO POCT-GLUCOSE [id number] 17:53:00 Test Item Value Reference Range Interpretation Comments POC-GLUCOSE METER 279 mg/dL 70-110 H : TESTED A T [facility] 6720 (BEAKER) (test code = [facility], 153) 21990: Contact And Service Clerks Supervisor/Techni josephine ID = [id number] for Lindsay Cid RAD, CHEST, 1 VIEW, NON [id number] 13:06:00Reason for exam:->post-chest tube removalShould this be performed at the bedside?->Yes [facility] : 1950 Sex: [...] MDReport Verified Date/Time: 05/11/2020 13:06:14 Reading Location: [facility] Radiology Reading Room 01:06 PMPOCT-GLUCOSE METER 2020-05-11 12:37:00 Test Item Value Reference Range Interpretation Comments POC-GLUCOSE METER 291 mg/dL 70-110 H : TESTED A T [facility] 6720 (BEAKER) (test code = [facility], 1538) 98678: Contact And Service Clerks Supervisor/Techni josephine ID = [id number] for Mindy Winkler mra POCT-GLUCOSE [id number] 12:37:00 Test Item Value Reference Range Interpretation Comments POC-GLUCOSE METER 257 mg/dL 70-110 H : TESTED A T [facility] 6720 (BEAKER) (test code = [facility], 1538) 16703: Contact And Service Clerks Supervisor/Techni josephine ID = [id number] for GENET ZELAYA GABE BASIC METABOLIC [id number] 06:27:00 Test Item Value Reference Range Interpretation [...] 697) EGFR (BEAKER) (test 66 mL/min/1.73 ESTIMA LESLIE GFR IS code = 1092) sq m NOT ACCURATE CREATININE CLEARANCE IN PREDICTING GLOMERULAR FILTRATION RATE . ESTIMATED GFR I S NOT APPLICABLE FOR DIALYSIS PATIEN TS. Contact And Service Clerks Supervisor ID - CBOWWRhysdyjbcy8217-13-65 06:22:00 Test Item Value Reference Range Interpretation Comments Phosphorus (test code = 2.4 mg/dL 2.3-4.7 2777-1) BARRON (test code = BARRON) Contact And Service Clerks Supervisor ID - EDASI Lab Interpretation (test Normal code = 58206-1) [facility] HospitalMAGNESIUM2020-11-17 06:22:00 Test Item Value Reference Range Interpretation Comments MAGNESIUM (BEAKER) (test code = 2.2 mg/dL 1.6-2.6 627) Contact And Service Clerks Supervisor ID - [id number] 06:22:00 Test Item Value Reference Range Interpretation Comments PHOSPHORUS (BEAKER) (test code = 2.4 mg/dL 2.3-4.7 604) Contact And Service Clerks Supervisor ID - EDASICALCIUM, [id number] 05:51:00 Test Item Value Reference Range Interpretation [...] CELLS (BEAKER) (test code = 413) Prepare [id number] 23:54:00 Test Item Value Reference Range Interpretation Comments CROSSMATCH (test code = COMPATIBLE 2264) Unit ABO (test code = A Pos 2371267) UNIT NUMBER (test code = [id number] 934-0) Status (test code = RETURNED FROM ISSUE 5462598) Blood Bank Product (test RED BLOOD CELLS code = 2263) PRODUCT CODE (test code = U6349H31 933-2) [facility] HospitalPrepare [id number] 23:54:00 Test Item Value Reference Range Interpretation Comments Unit ABO (test code = 5954407) A Pos UNIT NUMBER (test code = [id number] 934-0) Status (test code = 2599328) TX_TIMEINCHART Blood Bank Product (test code FFP = 2263) PRODUCT CODE (test code = P4726U38 933-2) [facility] HospitalPOCT-GLUCOSE [id number] 21:34:00 Test Item Value Reference Range Interpretation Comments POC-GLUCOSE METER 190 mg/dL 70-110 H : TESTED A T [facility] 6720 (BEAKER) (test code = [facility], 1538) 38933: Contact And Service Clerks Supervisor/Techni josephine ID = [id number] for ROSS GUTHRIE POCT-GLUCOSE [id number] 16:44:00 Test Item Value Reference Range Interpretation Comments POC-GLUCOSE METER 129 mg/dL 70-110 H : TESTED A T [facility] 6720 (BEAKER) (test code = [facility], 1538) 11991: Contact And Service Clerks Supervisor/Techni josephine ID = [id number] for Sara Herring CALCIUM, [id number] 14:52:00 Test Item Value Reference Range Interpretation Comments CALCIUM IONIZED (BEAKER) (test 1.11 mmol/L 1.12-1.27 L code = 698) PH, BLOOD (BEAKER) (test code = 7.35 1810) POCT-GLUCOSE [id number] 12:03:00 Test Item Value Reference Range Interpretation Comments POC-GLUCOSE METER 205 mg/dL 70-110 H : TESTED A T [facility] 6720 (BEAKER) (test code = [facility], 153) 18913: Contact And Service Clerks Supervisor/Techni josephine ID = [id number] for Sara Herring Platelet Aggregation: Function [id number] 10:23:00 Test Item Value Reference Range Interpretation Comments Pathologist: (test Ted Lynch MD code = 2622) (electronic signature) Platelets (test code 275 See_Comment [Autom ated = 1696) message] The system which generated this result transmitted reference range : 150 - 430 K/CU MM. The referen ce range was not used to interpr et this result as normal/abnormal . ADP (test code = 68 % 62-100 16389-9) Platelet Rich Plasma 297 See_Comment [Autom ated (test code = 2134) message] The system which generated this result transmitted reference range : 200 - 300 k/cu mm. The referen ce range was not used to interpr et this result as normal/abnormal . Plt. Function Screen Normal Interpretation (test aggregation code = 4655) results with ADP. No evidence of platelet dysfunction or P2Y12 inhibitor effect. BARRON (test code = BARRON) Platelet Function Screen results may be falsely low with platelet counts<75,000/cu mm. [facility] HospitalPLATELET AGGREGATION: FUNCTION [id number] 10:23:00 Test Item Value Reference Range Interpretation Comments [id number] Ted Lynch MD (BEAKER) (test code = [...] be falsely low with platelet counts<75,000/cu mm.Platelet [id number] 09:01:00 Test Item Value Reference Range Interpretation Comments Platelets (test code 160 See_Comment [Autom ated = 777-3) message] The system which generated this result transmit leslie reference range : 150 - 450 K/CU MM. The reference range was not u sed to interpret th is result as normal/abnormal . BARRON (test code = BARRON) Contact And Service Clerks Supervisor ID - [id number] ID - [id number] ID - [id number] Lab Interpretation Normal (test code = 57990-7) [facility] HospitalPLATELET [id number] 09:01:00 Test Item Value Reference Range Interpretation Comments PLATELET COUNT (BEAKER) (test 160 K/CU MM 150-450 code = 756) Contact And Service Clerks Supervisor ID - [id number] ID - [id number] ID - [id number] 08:44:00 Test Item Value Reference Range Interpretation Comments PTT (test code = 75.3 See_Comment H [Automated message] 25547-5) The system [employer] generated this result transmitted ref erence range: 22.5 - 3 6.0 seconds. The reference range was not used to int erpret this result as normal/abnormal . Lab Interpretation (test Abnormal code = 77203-5) [facility] HospitalAPTT2020-11-16 08:44:00 Test Item Value Reference Range Interpretation Comments PARTIAL THROMBOPLASTIN TIME 75.3 seconds 22.5-36.0 H (BEAKER) (test code = 760) [id number] 08:42:00 Test Item Value Reference Range Interpretation Comments Fibrinogen (test code = 3255-7) 427 mg/dl 225-434 Lab Interpretation (test code = Normal 31399-9) [facility] HospitalFIBRINOGEN2020-11-16 08:42:00 Test Item Value Reference Range Interpretation Comments FIBRINOGEN LEVEL (BEAKER) (test 427 mg/dl 225-434 code = 658) Prothromin time/[id number] 08:41:00 Test Item Value Reference Interpretation Comments Range Protime (test code = 14.9 See_Comment H [Autom ated 5902-2) message] The system which generated this result transmitted reference range : 11.9 - 14.2 seconds. The reference range was not used to interpret this result as normal/abnormal . INR (test code = 1.20 See_Comment [Automated 6301-6) message] The system which generated this result transmitted reference range : <=5.90. The reference range was not used to interpret this result as normal/abnormal . BARRON (test code = Effective 11/20/2018: BARRON) PT Reference Range ChangeNew: 11.9-14.2 Previous: 11.7-14.7 RECOMMENDED COUMADIN/WARFARIN INR THERAPY RANGESSTANDARD DOSE: 2.0-3.0 Includes: PROPHYLAXIS for venous thrombosis, systemic embolization; TREATMENT for venous thrombosis and/or pulmonary embolus.HIGH RISK: Target INR is 2.5-3.5 for patients wiht mechanical heart valves. Lab Interpretation Abnormal (test code = 81915-6) [facility] HospitalPROTHROMBIN TIME/[id number] 08:41:00 Test Item Value Reference Range Interpretation [...] is2.5-3.5 for patients wiht mechanical heart valves.POCT-GLUCOSE [id number] 08:19:00 Test Item Value Reference Range Interpretation Comments POC-GLUCOSE METER 183 mg/dL 70-110 H : TESTED A T [facility] 6720 (BEAKER) (test code = [facility], 1538) 80155: Contact And Service Clerks Supervisor/Techni josephine ID = [id number] for Ro binson, Sara Type and screen, [id number] 04:51:00 Test Item Value Reference Range Interpretation Comments ABO/RH AUTOMATED (BEAKER) (test A POSITIVE code = 2260) Ab Scrn (test code = 890-4) NEGATIVE [facility] METABOLIC [id number] 04:49:00 Test Item Value Reference Range Interpretation [...] 697) EGFR (BEAKER) (test 91 mL/min/1.73 ESTIMA LESLIE GFR IS code = 1092) sq m NOT ACCURATE CREATININE CLEARANCE IN PREDICTING GLOMERULAR FILTRATION RATE . ESTIMATED GFR I S NOT APPLICABLE FOR DIALYSIS PATIEN TS. Contact And Service Clerks Supervisor ID - [id number] 04:44:00 Test Item Value Reference Range Interpretation Comments MAGNESIUM (BEAKER) (test code = 2.3 mg/dL 1.6-2.6 627) Contact And Service Clerks Supervisor ID - [id number] 04:44:00 Test Item Value Reference Range Interpretation Comments PHOSPHORUS (BEAKER) (test code = 2.8 mg/dL 2.3-4.7 604) Contact And Service Clerks Supervisor ID - EDASICALCIUM, [id number] 04:25:00 Test Item Value Reference Range Interpretation Comments CALCIUM IONIZED (BEAKER) (test 1.02 mmol/L 1.12-1.27 L code = 698) PH, BLOOD (BEAKER) (test code = 7.41 1810) Check serum Ionized Calcium level after 4 hours after IV Calcium replacement.Check serum Ionized Calcium level after 4 hours after IV Calcium replacement.CBC with platelet count + automated [id number] 04:23:00 Test Item Value Reference Range Interpretation Comments WBC (test code = 6690-2) 11.1 See_Comment H [A utomated message] The system [employer] generated this result transmitted ref erence range: 3.5 - 10 .5 K/L. The refe rence range was not u sed to interpret this result as normal/abnor mal. RBC (test code = 789-8) 3.24 See_Comment L [Au tomated message] The system [employer] generated this result transmitted ref erence range: 4.63 - 6 .08 M/L. The refe rence range was not u sed to interpret this result as normal/abnor mal. MCHC (test code = 786-4) 35.1 See_Comment L [A utomated message] The system [employer] generated this result transmitted ref erence range: 32.3 - 3 6.5 GM/DL. The refe rence range was not u sed to interpret this result as normal/abnor mal. Hematocrit (test code = 28.8 % 40.1-51 L 4544-3) MCV (test code = 787-2) 88.9 fL 79-92.2 MCH (test code = 785-6) 31.2 pg 25.7-32.2 RDW (test code = 788-0) 13.9 % 11.6-14.4 Platelets (test code = 131 See_Comment L [Aut omated message] 777-3) The system [employer] generated this result transmitted ref erence range: 150 - 45 0 K/CU MM. The referen ce range was not u sed to interpret this result as normal/abnor mal. MPV (test code = 9.5 fL 9.4-12.4 47533-4) nRBC (test code = 413) 0 See_Comment [Aut omated message] The system [employer] generated this result transmitted ref erence range: 0 - 0 /1 00 WBC. The refere nce range was not u sed to interpret this result as normal/abnor mal. % Neutros (test code = 86 % 429) % Lymphs (test code = 7 % 430) % Monos (test code = 7 % 431) % Eos (test code = 432) 0 % % Baso (test code = 437) 0 % # Neutros (test code = 9.52 See_Comment H [Aut omated message] 670) The system [employer] generated this result transmitted ref erence range: 1.78 - 5 .38 K/L. The refe rence range was not u sed to interpret this result as normal/abnor mal. # Lymphs (test code = 0.72 See_Comment L [Auto mated message] 414) The system [employer] generated this result transmitted ref erence range: 1.32 - 3 .57 K/L. The refe rence range was not u sed to interpret this result as normal/abnor mal. # Monos (test code = 0.73 See_Comment [Autom ated message] 415) The system [employer] generated this result transmitted ref erence range: 0.30 - 0 .82 K/L. The refe rence range was not u sed to interpret this result as normal/abnor mal. # Eos (test code = 416) 0.03 See_Comment L [Au tomated message] The system [employer] generated this result transmitted ref erence range: 0.04 - 0 .54 K/L. The refe rence range was not u sed to interpret this result as normal/abnor mal. # Baso (test code = 417) 0.04 See_Comment [A utomated message] The system [employer] generated this result transmitted ref erence range: 0.01 - 0 .08 K/L. The refe rence range was not u sed to interpret this result as normal/abnor mal. Immature 1 % 0-1 Granulocytes-Relative (test code = 2801) Lab Interpretation (test Abnormal code = 25734-8) [facility] W/PLT COUNT & AUTO [id number] 04:23:00 Test Item Value Reference Range Interpretation [...] (BEAKER) (test code = 2801) Blood gas, [id number] 04:22:00 Test Item Value Reference Range Interpretation Comments pH, Arterial (test code 7.41 7.35-7.45 = 2744-1) pCO2, Arterial (test 39 See_Comment [Autom ated message] code = 2019-8) [facility] transmit leslie reference range : 35 - 45 mm Hg. The reference range was not used to interpret this result as normal/abnormal . pO2, Arterial (test 183 See_Comment H [Automa leslie message] code = 2703-7) [facility] result transmit leslie reference range : 80 - 90 mm Hg. The reference range was not used to interpret this result as normal/abnormal . O2 Sat, Arterial (test 99.3 % 96-97 H code = 2708-6) HCO3, Arterial (test 25 mmol/L 21-29 code = 1960-4) Base Excess, Arterial 0.0 mmol/L -2-3 (test code = 1925-7) Patient Temperature 36.8 (test code = 8310-5) FIO2 (test code = 1819) 36 Lab Interpretation Abnormal (test code = 49309-9) [facility] HospitalBLOOD GAS, [id number] 04:22:00 Test Item Value Reference Range Interpretation [...] 1819) 36.0 RAD, CHEST, 1 VIEW, NON [id number] 01:32:00Reason for exam:->s/p ACBShould this be performed at the bedside?->Yes [facility] : 1950 Sex: MFINAL REPORT [...] Ja Hickey MDReport Verified Date/Time: 05/10/2020 01:32:03 [id number] 21:38:00 Test Item Value Reference Range Interpretation Comments MAGNESIUM (BEAKER) 2.5 mg/dL 1.6-2.6 Specimen slightly (test code = 627) hemolyzed Contact And Service Clerks Supervisor ID - [id number] 21:38:00 Test Item Value Reference Range Interpretation Comments PHOSPHORUS (BEAKER) 3.1 mg/dL 2.3-4.7 Specimen slightly (test code = 604) hemolyzed Contact And Service Clerks Supervisor ID - EDASIBASIC METABOLIC [id number] 21:38:00 Test Item Value Reference Range Interpretation [...] 697) EGFR (BEAKER) (test 91 mL/min/1.73 ESTIMA LESLIE GFR IS code = 1092) sq m NOT ACCURATE CREATININE CLEARANCE IN PREDICTING GLOMERULAR FILTRATION RATE . ESTIMATED GFR I S NOT APPLICABLE FOR DIALYSIS PATIEN TS. Contact And Service Clerks Supervisor ID - EDASIBLOOD GAS, [id number] 21:20:00 Test Item Value Reference Range Interpretation Comments PH ARTERIAL (BEAKER) 7.43 7.35-7.45 (test code = 383) PCO2 ARTERIAL (BEAKER) 43 mm Hg 35-45 (test code = 384) PO2 ARTERIAL (BEAKER) 143 mm Hg 80-90 H This i s a corrected (test code = 385) result. Pr evious result was 144 mm Hg on 05/09/2020 a t 2[address] [employer] O2 SATURATION ARTERIAL 98.9 % 96.0-97.0 H (BEAKER) (test code = 386) HCO3 ARTERIAL (BEAKER) 28 mmol/L 21-29 (test code = 388) BASE EXCESS ARTERIAL 3.1 mmol/L -2.0-3.0 H (BEAKER) (test code = 387) PATIENT TEMPERATURE 36.8 This is a corrected (BEAKER) (test code = result . Previous 1817) result was 37.0 on 05/09/2020 at 2 [address] [employer] FIO2 (BEAKER) (test 36.0 This is a corrected code = 1819) result. Previou s result was 100. 0 on 05/09/2020 at 2 117 [employer] HGB/HCT (H&H)-Stat [id number] 21:17:00 Test Item Value Reference Range Interpretation Comments Hemoglobin (test code = 11.5 See_Comment L [Au tomated message] 786-4) The system [employer] generated this result transmitted ref erence range: 13.0 - 1 6.8 GM/DL. The refe rence range was not u sed to interpret this result as normal/abnor mal. Hematocrit (test code = 34.0 % 40-50 L 4544-3) Lab Interpretation (test Abnormal code = 70383-1) [facility] ([facility] - STAT [id number] 21:17:00 Test Item Value Reference Range Interpretation Comments HEMOGLOBIN (BEAKER) (test code = 11.5 GM/DL 13.0-16.8 L 410) HEMATOCRIT (BEAKER) (test code = 34.0 % 40.0-50.0 L 411) CALCIUM, [id number] 21:17:00 Test Item Value Reference Range Interpretation Comments CALCIUM IONIZED (BEAKER) (test 1.01 mmol/L 1.12-1.27 L code = 698) PH, BLOOD (BEAKER) (test code = 7.43 1810) Glucose-Stat [id number] 21:16:00 Test Item Value Reference Range Interpretation Comments Glucose (test code = 2345-7) 108 mg/dL 70-110 Lab Interpretation (test code = Normal 88516-8) [facility] [id number] 21:16:00 Test Item Value Reference Range Interpretation Comments Sodium (test code = 2951-2) 135 meq/L 136-145 L Lab Interpretation (test code = Abnormal 18082-3) [facility] HospitalPotassium-Stat [id number] 21:16:00 Test Item Value Reference Range Interpretation Comments Potassium (test code = 2823-3) 3.8 meq/L 3.6-5.5 Lab Interpretation (test code = Normal 34124-8) [facility] HospitalGLUCOSE-STAT [id number] 21:16:00 Test Item Value Reference Range Interpretation Comments GLUCOSE RANDOM (BEAKER) (test code 108 mg/dL 70-110 = 652) SODIUM NA-STAT [id number] 21:16:00 Test Item Value Reference Range Interpretation Comments SODIUM (BEAKER) (test code = 381) 135 meq/L 136-145 L POTASSIUM-STAT [id number] 21:16:00 Test Item Value Reference Range Interpretation Comments POTASSIUM (BEAKER) (test code = 3.8 meq/L 3.6-5.5 379) POCT-GLUCOSE [id number] 20:20:00 Test Item Value Reference Range Interpretation Comments POC-GLUCOSE METER 88 mg/dL 70-110 : TESTED A T [facility] 6720 (BEAKER) (test code = [facility], 153) [address]60: Contact And Service Clerks Supervisor/Techni josephine ID = [id number] for FRANCK ENMODEG BLOOD GAS, [id number] 19:23:00 Test Item Value Reference Range Interpretation [...] (BEAKER) (test code = 1819) 40.0 POCT-GLUCOSE [id number] 18:59:00 Test Item Value Reference Range Interpretation Comments POC-GLUCOSE METER 134 mg/dL 70-110 H : Notified RN/MD: (BEAKER) (test code = TESTED AT [facility] 6720 1538) [facility], [address]: Contact And Service Clerks Supervisor/Techni josephine ID = [id number] for STUART ACEVES POCT-GLUCOSE [id number] 16:41:00 Test Item Value Reference Range Interpretation Comments POC-GLUCOSE METER 211 mg/dL 70-110 H [facility] (test code = [facility], 153) [address]: Contact And Service Clerks Supervisor/Techni josephine ID = [id number] for STUART ACEVES BASIC METABOLIC [id number] 16:12:00 Test Item Value Reference Range Interpretation [...] S NOT APPLICABLE FOR DIALYSIS PATIEN TS. Contact And Service Clerks Supervisor ID - EDASIRAD, CHEST, 1 VIEW, NON [id number] 16:11:00while patient is intubated or has chest tubes.Reason for exam:->Status post CV SurgeryShould thisbe performed at the bedside?->Yes [facility] : 1950 Sex: [...] present. No pneumothorax is seen. Signed: My Patrick Verified Date/Time:05/09/2020 16:11:13 Reading Location: [facility] C013Y CT Body Reading Room [id number] 16:02:00 Test Item Value Reference Range Interpretation Comments MAGNESIUM (BEAKER) (test code = 1.7 mg/dL 1.6-2.6 627) Contact And Service Clerks Supervisor ID - [id number] 16:02:00 Test Item Value Reference Range Interpretation Comments PHOSPHORUS (BEAKER) (test code = 1.7 mg/dL 2.3-4.7 L 604) Contact And Service Clerks Supervisor ID - EDASILactic Acid, [id number] 15:57:00 Test Item Value Reference Range Interpretation Comments Lactate, Art (test 0.7 mmol/L 0.5-2.2 Specimen code = 2874) slightly hemolyzed BARRON (test code = BARRON) Contact And Service Clerks Supervisor ID - EDASI Lab Interpretation Normal (test code = 39732-2) [facility]APTT[facility] 15:57:00 Test Item Value Reference Range Interpretation Comments PARTIAL THROMBOPLASTIN TIME 67.0 seconds 22.5-36.0 H (BEAKER) (test code = 760) LACTIC ACID, [id number] 15:57:00 Test Item Value Reference Range Interpretation Comments LACTATE BLOOD 0.7 mmol/L 0.5-2.2 Specimen sligh tly ARTERIAL (2) (BEAKER) hemoly zed (test code = 2874) Contact And Service Clerks Supervisor ID - EDASIPROTHROMBIN TIME/[id number] 15:56:00 Test Item Value Reference Range Interpretation [...] mechanical heart valves.CBC W/PLT COUNT & AUTO [id number] 15:42:00 Test Item Value Reference Range Interpretation [...] (BEAKER) (test code = 2801) BLOOD GAS, [id number] 15:38:00 Test Item Value Reference Range Interpretation [...] (BEAKER) (test code = 1819) 50.0 CALCIUM, [id number] 15:38:00 Test Item Value Reference Range Interpretation Comments CALCIUM IONIZED (BEAKER) (test 1.04 mmol/L 1.12-1.27 L code = 698) PH, BLOOD (BEAKER) (test code = 7.59 1810) Oxygen saturation, [id number] 15:37:00 Test Item Value Reference Range Interpretation Comments O2 Saturation (Measured) (test code = 64.4 % 80496-1) [facility] HospitalOXYGEN SATURATION, [id number] 15:37:00 Test Item Value Reference Range Interpretation Comments O2 SATURATION (MEASURED) (BEAKER) 64.4 % (test code = 1455) CBC W/PLT COUNT & AUTO [id number] 15:33:00 Test Item Value Reference Range Interpretation [...] % 0-1 PERCENT (BEAKER) (test code = 8761) [id number] 14:50:00 Test Item Value Reference Range Interpretation Comments MAGNESIUM (BEAKER) (test code = 1.9 mg/dL 1.6-2.6 627) Contact And Service Clerks Supervisor ID - [id number] 14:50:00 Test Item Value Reference Range Interpretation Comments PHOSPHORUS (BEAKER) (test code = 2.4 mg/dL 2.3-4.7 604) Contact And Service Clerks Supervisor ID - EDASIPOC ACTIVATED CLOTTING [id number] 14:42:00 Test Item Value Reference Range Interpretation Comments Activated Clotting Time 125 sec : 74 -137 seconds, (test code = 441) Baseline: TESTED AT [address], [facility] 30: Contact And Service Clerks Supervisor/Techni josephine ID = [id number] for EDWAR SANDOVAL N [facility] [id number]-[id number] 14:42:00 Test Item Value Reference Range Interpretation Comments ACTIVATED CLOTTING TIME 125 sec : 74 -137 seconds, (BEAKER) (test code = Baseli ne: TESTED AT 441) [address], [address]70 30: Contact And Service Clerks Supervisor/Techni josephine ID = [id number] for LORI, EDWAR N [id number] 14:42:00 Test Item Value Reference Range Interpretation Comments ACTIVATED CLOTTING TIME 466 sec : 74 -137 seconds, (BEAKER) (test code = Baseli ne: TESTED AT 441) [address], [address]70 30: Contact And Service Clerks Supervisor/Techni josephine ID = [id number] for LORI, EDWAR N [id number] 14:42:00 Test Item Value Reference Range Interpretation Comments ACTIVATED CLOTTING TIME 593 sec : 74 -137 seconds, (BEAKER) (test code = Baseli ne: TESTED AT 441) [address], [address]70 30: Contact And Service Clerks Supervisor/Techni josephine ID = [id number] for LORI, EDWAR N [id number] 14:42:00 Test Item Value Reference Range Interpretation Comments ACTIVATED CLOTTING TIME 577 sec : 74 -137 seconds, (BEAKER) (test code = Baseli ne: TESTED AT 441) [address], [address]70 30: Contact And Service Clerks Supervisor/Techni josephine ID = [id number] for EDWAR SANDOVAL [id number] 14:41:00 Test Item Value Reference Range Interpretation Comments ACTIVATED CLOTTING TIME 538 sec : 74 -137 seconds, (BEAKER) (test code = Baseli ne: TESTED AT 441) [facility] [address] [facility], 770 30: Contact And Service Clerks Supervisor/Techni josephine ID = [id number] for EDWAR SANDOVAL [id number] 14:02:00 Test Item Value Reference Interpretation Comments Range Protime (test code = 19.8 See_Comment H [Autom ated 5902-2) message] The system which generated this result transmitted reference range : 11.9 - 14.2 seconds. The reference range was not used to interpret this result as normal/abnormal . INR (test code = 1.73 See_Comment [Automated 0771-6) message] The system which generated this result transmitted reference range : <=5.90. The reference range was not used to interpret this result as normal/abnormal . PTT (test code = 35.8 See_Comment [Automated 66913-4) message] The system which generated this result transmitted reference range : 22.5 - 36.0 seconds. The reference range was not used to interpret this result as normal/abnormal . BARRON (test code = Effective 11/20/2018: BARRON) PT Reference Range ChangeNew: 11.9-14.2 Previous: 11.7-14.7 RECOMMENDED COUMADIN/WARFARIN INR THERAPY RANGESSTANDARD DOSE: 2.0-3.0 Includes: PROPHYLAXIS for venous thrombosis, systemic embolization; TREATMENT for venous thrombosis and/or pulmonary embolus.HIGH RISK: Target INR is 2.5-3.5 for patients wiht mechanical heart valves. Lab Interpretation Abnormal (test code = 72324-6) [facility] HospitalFIBRINOGEN2020-11-15 14:02:00 Test Item Value Reference Range Interpretation Comments FIBRINOGEN LEVEL (BEAKER) (test 317 mg/dl 225-434 code = 658) [id number] 14:02:00 Test Item Value Reference Range Interpretation [...] is2.5-3.5 for patients wiht mechanical heart valves.PLATELET [id number] 13:59:00 Test Item Value Reference Range Interpretation Comments PLATELET COUNT (BEAKER) (test code 94 K/CU MM 150-450 L = 756) Contact And Service Clerks Supervisor ID - [id number] GAS, [id number] 13:47:00 Test Item Value Reference Range Interpretation [...] (test code = 1819) 100.0 SODIUM NA-STAT [id number] 13:47:00 Test Item Value Reference Range Interpretation Comments SODIUM (BEAKER) (test code = 381) 131 meq/L 136-145 L GLUCOSE-STAT [id number] 13:47:00 Test Item Value Reference Range Interpretation Comments GLUCOSE RANDOM (BEAKER) (test code 258 mg/dL 70-110 H = 652) HGB/HCT (H&H) - STAT [id number] 13:47:00 Test Item Value Reference Range Interpretation Comments HEMOGLOBIN (BEAKER) (test code = 8.8 GM/DL 13.0-16.8 L 410) HEMATOCRIT (BEAKER) (test code = 26.0 % 40.0-50.0 L 411) POTASSIUM-STAT [id number] 13:46:00 Test Item Value Reference Range Interpretation Comments POTASSIUM (BEAKER) (test code = 4.3 meq/L 3.6-5.5 379) HGB/HCT (H&H) - STAT [id number] 13:17:00 Test Item Value Reference Range Interpretation Comments HEMOGLOBIN (BEAKER) (test code = 9.1 GM/DL 13.0-16.8 L 410) HEMATOCRIT (BEAKER) (test code = 27.0 % 40.0-50.0 L 411) POTASSIUM-STAT [id number] 13:17:00 Test Item Value Reference Range Interpretation Comments POTASSIUM (BEAKER) (test code = 4.7 meq/L 3.6-5.5 379) BLOOD GAS, [id number] 13:17:00 Test Item Value Reference Range Interpretation [...] (test code = 1819) 60.0 SODIUM NA-STAT [id number] 13:17:00 Test Item Value Reference Range Interpretation Comments SODIUM (BEAKER) (test code = 381) 132 meq/L 136-145 L GLUCOSE-STAT [id number] 13:17:00 Test Item Value Reference Range Interpretation Comments GLUCOSE RANDOM (BEAKER) (test code 266 mg/dL 70-110 H = 652) GLUCOSE-STAT [id number] 12:55:00 Test Item Value Reference Range Interpretation Comments GLUCOSE RANDOM (BEAKER) (test code 266 mg/dL 70-110 H = 652) SODIUM NA-STAT [id number] 12:55:00 Test Item Value Reference Range Interpretation Comments SODIUM (BEAKER) (test code = 381) 127 meq/L 136-145 L HGB/HCT (H&H) - STAT [id number] 12:55:00 Test Item Value Reference Range Interpretation Comments HEMOGLOBIN (BEAKER) (test code = 9.2 GM/DL 13.0-16.8 L 410) HEMATOCRIT (BEAKER) (test code = 27.0 % 40.0-50.0 L 411) BLOOD GAS, [id number] 12:55:00 Test Item Value Reference Range Interpretation [...] (BEAKER) (test code = 1819) 50.0 POTASSIUM-STAT [id number] 12:54:00 Test Item Value Reference Range Interpretation Comments POTASSIUM (BEAKER) (test code = 5.2 meq/L 3.6-5.5 379) Blood gas, [id number] 12:14:00 Test Item Value Reference Range Interpretation Comments pH, Blaze (test code = 7.33 7.32-7.42 2746-6) pCO2, Blaze (test code = 45 See_Comment [Aut omated 755) message] The sy stem which generated this result transmitted reference range : 41 - 51 mm Hg. The reference range was not used to interpret this result as normal/abnormal . pO2, Blaze (test code = 48 See_Comment H [Auto mated 5975-2) message] The sy stem which generated this result transmitted reference range : 25 - 40 mm Hg. The reference range was not used to interpret this result as normal/abnormal . O2 Sat, Blaze (test code 88.9 % 40-70 H = 2711-0) HCO3, Blaze (test code = 24 mmol/L 21-29 16534-5) Base Excess, Blaze (test -2.6 mmol/L -2-3 L code = 1927-3) Patient Temperature 32.9 (test code = 8310-5) FIO2 (test code = 1819) 60 Lab Interpretation Abnormal (test code = 07688-4) [facility] HospitalBLOOD GAS, [id number] 12:14:00 Test Item Value Reference Range Interpretation [...] (test code = 1819) 60.0 BLOOD GAS, [id number] 12:14:00 Test Item Value Reference Range Interpretation [...] (test code = 1819) 60.0 SODIUM NA-STAT [id number] 12:14:00 Test Item Value Reference Range Interpretation Comments SODIUM (BEAKER) (test code = 381) 131 meq/L 136-145 L GLUCOSE-STAT [id number] 12:14:00 Test Item Value Reference Range Interpretation Comments GLUCOSE RANDOM (BEAKER) (test code 257 mg/dL 70-110 H = 652) HGB/HCT (H&H) - STAT [id number] 12:14:00 Test Item Value Reference Range Interpretation Comments HEMOGLOBIN (BEAKER) (test code = 8.0 GM/DL 13.0-16.8 L 410) HEMATOCRIT (BEAKER) (test code = 24.0 % 40.0-50.0 L 411) POTASSIUM-STAT [id number] 12:13:00 Test Item Value Reference Range Interpretation Comments POTASSIUM (BEAKER) (test code = 4.7 meq/L 3.6-5.5 379) BLOOD GAS, [id number] 10:48:00 Test Item Value Reference Range Interpretation [...] (test code = 1819) 100.0 SODIUM NA-STAT [id number] 10:48:00 Test Item Value Reference Range Interpretation Comments SODIUM (BEAKER) (test code = 381) 132 meq/L 136-145 L GLUCOSE-STAT [id number] 10:48:00 Test Item Value Reference Range Interpretation Comments GLUCOSE RANDOM (BEAKER) (test code 203 mg/dL 70-110 H = 652) HGB/HCT (H&H) - STAT [id number] 10:48:00 Test Item Value Reference Range Interpretation Comments HEMOGLOBIN (BEAKER) (test code = 9.0 GM/DL 13.0-16.8 L 410) HEMATOCRIT (BEAKER) (test code = 26.0 % 40.0-50.0 L 411) POTASSIUM-STAT [id number] 10:47:00 Test Item Value Reference Range Interpretation Comments POTASSIUM (BEAKER) (test code = 3.5 meq/L 3.6-5.5 L 379) CBC W/PLT COUNT & AUTO [id number] 08:57:00 Test Item Value Reference Range Interpretation [...] (BEAKER) (test code = 2801) BASIC METABOLIC [id number] 08:52:00 Test Item Value Reference Range Interpretation [...] 697) EGFR (BEAKER) (test 71 mL/min/1.73 ESTIMA LESLIE GFR IS code = 1092) sq m NOT ACCURATE CREATININE CLEARANCE IN PREDICTING GLOMERULAR FILTRATION RATE . ESTIMATED GFR I S NOT APPLICABLE FOR DIALYSIS PATIEN TS. Contact And Service Clerks Supervisor ID - EDASIPOCT-GLUCOSE [id number] 07:58:00 Test Item Value Reference Range Interpretation Comments POC-GLUCOSE METER 230 mg/dL 70-110 H : TESTED A T [facility] 67[address] (BEAKER) (test code = [place], 1538) [address]: Contact And Service Clerks Supervisor/Techni josepihne ID = [id number] for OR JOSE MANUEL VELASCO PLATELET AGGREGATION: FUNCTION [id number] 06:17:00 Test Item Value Reference Range Interpretation Comments [id number] Nadege Biswas MD (BEAKER) (test code = (electronic 0272) signature) PLATELET COUNT AGG 202 K/CU MM 150-450 (BEAKER) (test code = 2656) ADP (BEAKER) (test code 63 % 62-100 = 3344) PLATELET RICH 271 k/cu mm 200-300 PLASMA(BEAKER) (test code = 2137) PLATELET FUNCTION SCREEN Normal aggregation INTERPRETATION (BEAKER) results with ADP. No (test code = 4651) evidence of platelet dysfunction or P2Y12 inhibitor effect. Platelet Function Screen results may be falsely low with platelet counts<75,000/cu mm.Contact And Service Clerks Supervisor ID- 6000POCT-GLUCOSE [id number] 21:26:00 Test Item Value Reference Range Interpretation Comments POC-GLUCOSE METER 270 mg/dL 70-110 H : TESTED A T [facility] 6720 (BEAKER) (test code = [facility], 153) [address]: Contact And Service Clerks Supervisor/Techni josephine ID = [id number] for Danica Hutchins POCT-GLUCOSE [id number] 16:06:00 Test Item Value Reference Range Interpretation Comments POC-GLUCOSE METER 253 mg/dL 70-110 H : TESTED A T [facility] 6720 (BEAKER) (test code = [facility], 1538) [address]: Contact And Service Clerks Supervisor/Techni josephine ID = [id number] for Palak, Lindsay POCT-GLUCOSE [id number] 12:24:00 Test Item Value Reference Range Interpretation Comments POC-GLUCOSE METER 183 mg/dL 70-110 H : TESTED A T [facility] 6720 (BEAKER) (test code = [facility], 153) [address]: Contact And Service Clerks Supervisor/Techni josephine ID = [id number] for Palak, Lindsay BASIC METABOLIC [id number] 12:17:00 Test Item Value Reference Range Interpretation [...] 697) EGFR (BEAKER) (test 68 mL/min/1.73 ESTIMA LESLIE GFR IS code = 1092) sq m NOT ACCURATE CREATININE CLEARANCE IN PREDICTING GLOMERULAR FILTRATION RATE . ESTIMATED GFR I S NOT APPLICABLE FOR DIALYSIS PATIEN TS. Contact And Service Clerks Supervisor ID - DAVID FCBC W/PLT COUNT & AUTO [id number] 11:55:00 Test Item Value Reference Range Interpretation [...] PERCENT (BEAKER) (test code = 2801) Hemoglobin [id number] 08:36:00 Test Item Value Reference Range Interpretation Comments Hemoglobin A1C (test code = 4548-4) 13.8 % 4.3-6.1 H Lab Interpretation (test code = Abnormal 67884-7) [facility] HospitalHEMOGLOBIN [id number] 08:36:00 Test Item Value Reference Range Interpretation Comments HEMOGLOBIN A1C (BEAKER) (test code = 13.8 % 4.3-6.1 H 368) POCT-GLUCOSE [id number] 08:24:00 Test Item Value Reference Range Interpretation Comments POC-GLUCOSE METER 176 mg/dL 70-110 H : TESTED A T [facility] 6720 (BEAKER) (test code = [facility], 153) [address]: Contact And Service Clerks Supervisor/Techni josephine ID = [id number] for Palak, Lindsay POCT-GLUCOSE [id number] 21:13:00 Test Item Value Reference Range Interpretation Comments POC-GLUCOSE METER 300 mg/dL 70-110 H : TESTED A T [facility] 6720 (BEAKER) (test code = [facility], 1538) [address]: Contact And Service Clerks Supervisor/Techni josephine ID = [id number] for Re yes, Sairy POCT-GLUCOSE [id number] 17:34:00 Test Item Value Reference Range Interpretation Comments POC-GLUCOSE METER 279 mg/dL 70-110 H : TESTED A T [facility] 6720 (BEAKER) (test code = [facility], 1538) [address]: Contact And Service Clerks Supervisor/Techni josephine ID = [id number] for OR JOSE MANUEL VELASCO [id number] 16:35:00 Test Item Value Reference Range Interpretation Comments PARTIAL THROMBOPLASTIN TIME 30.4 seconds 22.5-36.0 (BEAKER) (test code = 760) PROTHROMBIN TIME/[id number] 16:34:00 Test Item Value Reference Range Interpretation [...] is2.5-3.5 for patients wiht mechanical heart valves.Lipid [id number] 16:11:00 Test Item Value Reference Range Interpretation Comments Triglycerides (test 129 mg/dL code = 2571-8) Cholesterol (test code 148 mg/dL = 2093-3) HDL (test code = 30 mg/dL 2084-9) LDL Calculated (test 92 mg/dL code = 89249-7) BARRON (test code = BARRON) Triglyceride Reference Range: Low Risk <150 Borderline 150-199 High Risk 200-499 Very High Risk >=500 Cholesterol Reference Range: Low Risk <200 Borderline 200-239 High Risk >240 HDL Cholesterol Reference Range: Low Risk >=60 High Risk <40 LDL Cholesterol Reference Range: Optimal <100 Near Optimal 100-129 Borderline 130-159 High 160-189 Very High >=190 Contact And Service Clerks Supervisor ID - ADMIN [facility] HospitalLIPID [id number] 16:11:00 Test Item Value Reference Range Interpretation [...] Borderline 130-159 High 160-189 Very High >=190 Contact And Service Clerks Supervisor ID - ADMINPOCT-GLUCOSE [id number] 12:53:00 Test Item Value Reference Range Interpretation Comments POC-GLUCOSE METER 129 mg/dL 70-110 H : TESTED A T [facility] 6720 (BEAKER) (test code = [address], 1538) [address]: Contact And Service Clerks Supervisor/Techni josephine ID = [id number] for OR JOSE MANUEL VELASCO BASIC METABOLIC [id number] 10:42:00 Test Item Value Reference Range Interpretation [...] 697) EGFR (BEAKER) (test 76 mL/min/1.73 ESTIMA LESLIE GFR IS code = 1092) sq m NOT ACCURATE CREATININE CLEARANCE IN PREDICTING GLOMERULAR FILTRATION RATE . ESTIMATED GFR I S NOT APPLICABLE FOR DIALYSIS PATIEN TS. Contact And Service Clerks Supervisor ID - PATRICIA [id number] 10:42:00 Test Item Value Reference Range Interpretation Comments MAGNESIUM (BEAKER) (test code = 1.9 mg/dL 1.6-2.6 627) Contact And Service Clerks Supervisor ID - PATRICIA CPLATELET AGGREGATION: FUNCTION [id number] 10:06:00 Test Item Value Reference Range Interpretation Comments [id number] Ted Lynch MD (BEAKER) (test code = (electronic 5382) signature) PLATELET COUNT AGG 156 K/CU MM 150-450 (BEAKER) (test code = 2656) ADP (BEAKER) (test code 54 % 62-100 L = 4654) PLATELET RICH 228 k/cu mm 200-300 PLASMA(BEAKER) (test code = 2134) PLATELET FUNCTION SCREEN Decreased aggregation INTERPRETATION (BEAKER) with ADP which (test code = 4655) indicates platelet dysfunction that may be due to medication effect, uremia, or other platelet function disorders. Clinical correlation is required. Platelet Function Screen results may be falsely low with platelet counts<75,000/cu mm.Contact And Service Clerks Supervisor ID- [id number]'s Only(Ankle/Brachial Index) 2020-05-07 08:24:13Ejection [facility] ECHO HEARTLAB MKCKESSON CPACSRight Impression1. The posterior [...] of Study 05/06/2020 Age 70 Visit Number [id number] Gender Male Accession Number [id number] Date of 1950 Referring [facility] Room Number 1142 Physician Joyce Culinary Assistant Mariola Guzman [facility] Interpreting Physician CAPRI Zuluaga ProcedureType of Study: Extremities Arteries: Lower Extremity [...] in cm/s ; Diameters are measured in [facility] Center[facility]in Mapping Legs [id number] 08:23:53Ejection [facility] ECHO HEARTLAB MKCKESSON CPACSRight Impression1. There is [...] of Study 05/06/2020 Age 70 Visit Number [id number] Gender [facility] 1950 [facility] Physician Culinary Assistant Ame Engle, Interpreting Bettina Haas T Physician [...] + + + + + + + +[facility] HospitalArterial doppler legs [id number] 08:23:35[facility] MKCKESSON CPACSRight Impression1. The common [...] + + + + + + !Prox FLUE CLEANER ! !57.4 ! ! ! !33 ! ! ! + + + + + + + + + + !Mid FLUE CLEANER ! !107 ! ! ! !31.4 ! ! ! + + + ---------+ + + + + + + !Dist FLUE CLEANER ! !56.9 ! ! ! !29.1 ! [...] of Study 05/06/2020 Age 70 Visit Number [id number] Gender Male Accession Number [id number] Date of 1950 [facility] Room Number 1142 Physician Joyce Culinary Assistant Ame Engle, Interpreting Bettina Haas T Physician [...] + + +------- + + + !Prox FLUE CLEANER ! !57.4 ! ! ! !33 ! ! ! + + + + + + + + + + !Mid FLUE CLEANER ! !107 ! ! ! !31.4 ! ! ! + + + + + + + + + + !Dist FLUE CLEANER ! !56.9 ! ! ! !29.1 ! [...] + + + + + + + +[facility] HospitalCarotid doppler [id number] 08:23:10Ejection [facility] ECHO HEARTLAB MKCKESSON CPACSRight Impression1. There is [...] of Study 05/06/2020 Age 70 Visit Number [id number] Gender Male Accession Number [id number] Date of 1950 Referring Clayton Reeder Room Number 1142 Physician Culinary Assistant Ame Engle, Interpreting Bettina Haas T Physician [...] + + + - Additional Measurements:ICAPSV/CCAPSV 0.81.ICAEDV/CCAEDV 1.26.[facility] HospitalClostridium difficile GDH [id number] 08:20:00 Test Item Value Reference Range Interpretation Comments C. Difficle Toxin Negative Negative (test code = 3898093884) C. Difficile GDH Negative Negative No indicati on of Antigen (test code = Clostri dium 3884193969) difficile infection and n o colonization. Discontinue enteric isolati on and therapy. BARRON (test code = Testing performed BARRON) by Alere Rapid Cassette Assay. For GDH, published sensitivity of the assay is 98.7% compared to cytotoxicity testing. For Toxin AB, published sensitivity is 87.8% and specificity 99.4% compared to cytotoxicity testing.Verificati on of kit performance was done by the [facility] Microbiology Lab prior to clinical use. Lab Interpretation Normal (test code = 93636-7) [facility] HospitalC. DIFFICILE GDH [id number] 08:20:00 Test Item Value Reference Range Interpretation Comments CDT TOXIN (test code Negative Negative = 5870597880) CDT GDH ANTIGEN (test Negative Negative No ind ication of code = 3623682445) Clostridi um difficile infection and n o colonization. Discontinue ent luis felipe isolation and t herapy. Testing performed by Alere Rapid Cassette Assay. For GDH, published sensitivity of the assay is 98.7% compared to cytotoxicity testing. For Toxin AB, published sensitivity is 87.8% and specificity 99.4% compared to cytotoxicity testing.Verification of kit performance was done by the [facility] Microbiology Lab prior to clinical use.CBC W/PLT COUNT & AUTO [id number] 06:51:00 Test Item Value Reference Range Interpretation [...] (test code = 2801) RAD, CHEST, 2 [id number] 23:11:00Reason for exam:->pneumoniaShould this be performed at the bedside?->No [facility] KIARRA RUFFIN : 1950 Sex: MFINAL REPORT RAD, CHEST, [...] outside prior exams. Signed: Luis Felipe Sanches MDRepun[facility] Verified Date/Time: 05/06/2020 23:11:10 Reading Location: [address] Reading Room XR chest 2 [id number] 23:11:00 Interface, External Ris In - 05/06/2020 [...] Sanches Verified Date/Time: 05/06/2020 23:11:10 Reading Location: [facility] B1 C013T Transitional Reading Room [facility] SARS-COV2/RT-PCR ([facility])2020-05-06 22:20:00 Test Item Value Reference Range Interpretation Comments SARS-COV2/RT-PCR (test code Negative Not Detected, Negative, = 9361249) See external report for linked test SARS-COV-2 PERFORMING LAB [facility] (test code = 7759292) Negative results do not preclude SARS-CoV-2 infection [...] of the Act.Fact Sheet for Healthcare Pro viders:https://www.MetaJure.StudyApps/Documents/Xpert%20Xpress%20SARS%20CoV-2/Fact%20Sh eets/302-3802%69WDYT-KSQ-8%20HEALTHCARE%20PROVIDERS%20FACT%20SHEET.pdfFact Sheet for Healthcare Patients:https://www.[employer].StudyApps/Documents/Xpert%20Xpress%20SARS%20CoV-2/Fact%20Sheets/302-3801%20SARS-COV -2%20PATIENT%20FACT%20SHEET.pdfPerforming Laboratory:[facility] [facility] [place], [place] [address]NOBO-FACMHTJ [id number] 21:15:00 Test Item Value Reference Range Interpretation Comments POC-GLUCOSE METER 326 mg/dL 70-110 H : TESTED A T [facility] 6720 (BEAKER) (test code = [facility], 1538) [address]: Contact And Service Clerks Supervisor/Techni josephine ID = [id number] for ROSS GUTHRIE, [id number] 21:11:00 Test Item Value Reference Range Interpretation Comments ABO Grouping (test code = 2588) A Rh Factor (test code = 2589) [facility] [id number] 18:25:00 Test Item Value Reference Range Interpretation Comments POC-GLUCOSE METER 212 mg/dL 70-110 H : TESTED A T [facility] 6720 (BEAKER) (test code = [facility], 153) [address]: Contact And Service Clerks Supervisor/Techni josephine ID = [id number] for GABE MILLS HEMOGLOBIN [id number] 14:50:00 Test Item Value Reference Range Interpretation Comments HEMOGLOBIN A1C (BEAKER) (test code = 13.8 % 4.3-6.1 H 368) POCT-GLUCOSE [id number] 11:52:00 Test Item Value Reference Range Interpretation Comments POC-GLUCOSE METER 231 mg/dL 70-110 H : TESTED A T [facility] 6720 (BEAKER) (test code = [facility], 153) 236[address]: Contact And Service Clerks Supervisor/Techni josephine ID = [id number] for GABE MILLS PLATELET AGGREGATION: FUNCTION [id number] 11:25:00 Test Item Value Reference Range Interpretation Comments [id number] Nadege Biswas MD (BEAKER) (test code = (electronic 2622) signature) PLATELET COUNT AGG 147 K/CU MM 150-450 L (BEAKER) (test code = 2656) ADP (BEAKER) (test code 42 % 62-100 L = 4654) PLATELET RICH 170 k/cu mm 200-300 L PLASMA(BEAKER) (test code = 2134) PLATELET FUNCTION SCREEN Decreased aggregation INTERPRETATION (BEAKER) with ADP which (test code = 4815) indicates platelet dysfunction that may be due to medication effect, uremia, or other platelet function disorders. Clinical correlation is required. Platelet Function Screen results may be falsely low with platelet counts<75,000/cu mm.Contact And Service Clerks Supervisor ID- 6000POCT-GLUCOSE [id number] 09:00:00 Test Item Value Reference Range Interpretation Comments POC-GLUCOSE METER 162 mg/dL 70-110 H : TESTED A T [facility] 6720 (BEAKER) (test code = [place], 1538) [address]: Contact And Service Clerks Supervisor/Techni josephine ID = [id number] for GABE MILLS BASIC METABOLIC [id number] 07:13:00 Test Item Value Reference Range Interpretation [...] 697) EGFR (BEAKER) (test 60 mL/min/1.73 ESTIMA LESLIE GFR IS code = 1092) sq m NOT ACCURATE CREATININE CLEARANCE IN PREDICTING GLOMERULAR FILTRATION RATE . ESTIMATED GFR I S NOT APPLICABLE FOR DIALYSIS PATIEN TS. Contact And Service Clerks Supervisor ID - LEVI [id number] 07:13:00 Test Item Value Reference Range Interpretation Comments MAGNESIUM (BEAKER) (test code = 1.8 mg/dL 1.6-2.6 627) Contact And Service Clerks Supervisor TOO SIMS [facility]BC W/PLT COUNT & AUTO [id number] 06:25:00 Test Item Value Reference Range Interpretation [...] code = 2801) 2D Echo W/Doppler(CW/PW/Color)2020-05-05 23:00:50Ejection FractionSLEH ECHO HEARTLAB MKCKESSON CPACSInterface, External Ris In - 05/05/2020 11:00 PM C STTransthoracic Echocardiography Report (TTE) Demographics Patient Name KIARRA RUFFIN Date of Study 05/05/2020 Gender Male Visit Number [id number] Race Unknown Room Number 1142 Number Date of 1950 Referring Physician Sriram Denis MD Age 70 year(s) Culinary Assistant Bina Serrano Radiology Transporter Rachel Dixon Interpreting MD Gavin Holder Physician Procedure Type of Study TTE procedure:2DECHO [...] CO: 5.67 l/min LVOT CI: 2.75 l/min/m^2[facility] [id number] 21:11:00 Test Item Value Reference Range Interpretation Comments POC-GLUCOSE METER 223 mg/dL 70-110 H : TESTED A T [facility] 6720 (Websand) (test code = [facility] [employer] [facility], 153) [id number]: Contact And Service Clerks Supervisor/Techni josephine ID = [id number] for SORIN NOBLES POCT-GLUCOSE [id number] 17:06:00 Test Item Value Reference Range Interpretation Comments POC-GLUCOSE METER 248 mg/dL 70-110 H : TESTED A T [facility] 6720 (Websand) (test code = [employer] [facility], 153) 42216: Contact And Service Clerks Supervisor/Techni josephine ID = [id number] for GENET MONACOGABE BARRAZA POCT-GLUCOSE [id number] 12:10:00 Test Item Value Reference Range Interpretation Comments POC-GLUCOSE METER 113 mg/dL 70-110 H : TESTED A T [facility] 6720 (Websand) (test code = [facility] [employer] [facility], 1538) 07707: Contact And Service Clerks Supervisor/Techni josephine ID = [id number] for GABE MILLS HEMOGLOBIN [id number] 10:27:00 Test Item Value Reference Range Interpretation Comments HEMOGLOBIN A1C (BEAKER) (test code = 14.2 % 4.3-6.1 H 368) BASIC METABOLIC [id number] 06:21:00 Test Item Value Reference Range Interpretation [...] 697) EGFR (BEAKER) (test 59 mL/min/1.73 ESTIMA LESLIE GFR IS code = 1092) sq m NOT ACCURATE CREATININE CLEARANCE IN PREDICTING GLOMERULAR FILTRATION RATE . ESTIMATED GFR I S NOT APPLICABLE FOR DIALYSIS PATIEN TS. Contact And Service Clerks Supervisor ID - [id number] 06:21:00 Test Item Value Reference Range Interpretation Comments MAGNESIUM (BEAKER) (test code = 1.7 mg/dL 1.6-2.6 627) Contact And Service Clerks Supervisor ID - BSLIPID [id number] 06:21:00 Test Item Value Reference Range Interpretation [...] Borderline 130-159 High 160-189 Very High >=190 Contact And Service Clerks Supervisor ID - BSCBC W/PLT COUNT & AUTO [id number] 06:00:00 Test Item Value Reference Range Interpretation [...] PERCENT (BEAKER) (test code = 2801) PROTHROMBIN [id number] 05:50:00 Test Item Value Reference Range Interpretation [...]
[2020-08-22] MEDS ORDERED: TETANUS & DIPHTHERIA TOX,ADULT 0.5 ML VIAL ONE (10:37)
[2020-08-22] MEDS ORDERED: HYDROCODONE/APAP 5/325 MG TAB ONE (10:37)
--- NOTE | 2020-08-22 10:43 | RAD REPORT ---
EXAM DESCRIPTION: RAD - Hand Right 3 View - 08/22/2020 10:26 am CLINICAL HISTORY: Right hand pain status post injury FINDINGS: Mildly to moderately displaced fracture involves the mid aspect of second proximal phalanx . There is marked angulation present at the fracture site. No dislocation
[2020-08-22] MEDS ORDERED: CEFAZOLIN SODIUM 1 GM/VIAL ONE (11:04)
[2020-08-22] MEDS ORDERED: WATER FOR INJ,STERILE 10 ML ONE (11:04)
--- NOTE | 2020-08-22 11:14 | EDPHYS ---
Physician Documentation [facility] Name: Scott Mederos Age: 70 yrs Sex: Male : 1950 Arrival Date: 08/22/2020 Time: 09:40 Bed 6 Private MD: ED Physician Marvin Ramos HPI: 08/22 09:58 This 70 yrs old Male presents to ER via Ambulatory with complaints of Finger pm1 Injury. 09:58 The patient or guardian reports pain. The complaints affect the right index finger. pm1 Context: resulted from tripped while walking. Onset: The symptoms/episode began/occurred just prior to arrival. Modifying factors: The symptoms are alleviated by holding still, the symptoms are aggravated by movement. Associated signs and symptoms: Pertinent negatives: cyanosis distally, decreased sensation distally, numbness distally, tingling distally. Severity of symptoms: in the emergency department the symptoms are unchanged. The patient has not experienced similar symptoms in the past. Patient denies headache, LOC, n/v, neck pain. Historical: - Allergies: 09:57 Acyclovir; ss 09:57 Demerol; ss 09:57 Meperidine; ss 09:57 Vancomycin; ss - PMHx: 09:57 Diabetes - IDDM; GERD; hypotension; Hypertension; High Cholesterol; Hypothyroidism; ss Neck/Throat Cancer; Renal Disease; - Immunization history:: Adult Immunizations up to date. - Social history:: Smoking status: Patient denies any tobacco usage or history of. ROS: 09:58 Constitutional: Negative for fever, chills, and weight loss, Neck: Negative for injury, pm1 pain, and swelling, Cardiovascular: Negative for chest pain, palpitations, and edema, Respiratory: Negative for shortness of breath, cough, wheezing, and pleuritic chest pain, Abdomen/GI: Negative for abdominal pain, nausea, vomiting, diarrhea, and constipation, Back: Negative for injury and pain. 09:58 Neuro: Negative for headache, weakness, numbness, tingling, and seizure. 09:58 MS/extremity: Positive for injury or acute deformity, pain, of the right index finger. 09:58 Skin: Positive for abrasion(s), of the face and right index finger. Exam: 09:58 Constitutional: This is a well developed, well nourished patient who is awake, alert, pm1 and in no acute distress. Head/Face: Normocephalic, atraumatic. 09:58 Head/face: Patient would not allow. 09:58 Eyes: Patient would not allow. 09:58 Neck: patient would not allow. 09:58 Musculoskeletal/extremity: Extremities: grossly normal except: noted in the dorsal aspect of proximal phalanx of right index finger: abrasion, deformity, puncture, There is no evidence of laceration, Circulation is intact in all extremities. the right index finger Sensation intact. 09:58 Neuro: Exam negative for acute changes, Orientation: is normal, Mentation: is normal, Motor: is normal, moves all fours. Vital Signs: 09:55 Pulse 78; Resp 18; Temp 98.0(TE); Pulse Ox 95% ; Weight 70.31 kg; Height 5 ft. 11 in. ss (180.34 cm); Pain 4/10; 11:18 BP 109 / 57; ll1 09:55 Body Mass Index 21.62 (70.31 kg, 180.34 cm) Procedures: 11:07 Splinting: Splint applied to right index finger using finger splint, applied by myself. pm1 Examined by me, post splint application: neurovascular intact, 2+ distal pulses palpable, brisk capillary refill noted, Patient tolerated well, second finger puncture wound on dorsal aspect of proximal phalanx cleansed with Hibiclens and rinsed copiously with NS. . MDM: 09:50 Patient medically screened. pm1 09:54 Refusal of service: The patient/guardian displays adequate decision making capability pm1 and despite a detailed discussion of alternatives, benefits, risks, and consequences refuses: CT Scan, Patient with dried blood on lateral aspect of his right eyebrow. The patient refused further evaluation of his face, head and neck. Would not take of his hat. Patient said he does not mind a little blood and just wants his finger evaluated. He does not want a CT of his head or neck. 10:57 Physician consultation: Dr Ramos consulted with Dr Terry who will see the patient pm1 in the office on Sunday. 11:07 Data reviewed: vital signs. Data interpreted: Pulse oximetry: on room air is 95 %. pm1 Interpretation: normal. 11:07 Counseling: I had a detailed discussion with the patient and/or guardian regarding: the pm1 historical points, exam findings, and any diagnostic results supporting the discharge/admit diagnosis, radiology results, the need for outpatient follow up, for definitive care, a hand specialist, call her office tomorrow to set up appointment on Sunday, to return to the emergency department if symptoms worsen or persist or if there are any questions or concerns that arise at home. 08/22 09:53 Order name: Hand Right 3 View XRAY; Complete Time: 10:57 pm1 08/22 10:58 Order name: Hand Right 3 View XRAY; Complete Time: 11:48 pm1 08/22 10:42 Order name: Splint - Finger; Complete Time: 11:19 pm1 Administered Medications: 10:23 Drug: [place] 5 mg-325 mg 1 tabs Route: PO; ll1 11:58 Follow up: Response: No adverse reaction; Pain is decreased; RASS: Alert and Calm (0) ll1 10:23 Not Given (UTD): Tetanus-Diphtheria Toxoid Adult 0.5 ml IM once ll1 11:15 Drug: Ancef 1 grams Route: IM; Site: left gluteus; ll1 11:57 Follow up: Response: No adverse reaction ll1 Disposition: 08/23 06:16 Co-signature as Attending Physician, Marvin Ramos MD I agree with the assessment and frankie plan of care. Disposition: 08/22/20 11:13 Discharged to Home. Impression: Displaced fracture of proximal phalanx of right index finger. - Condition is Stable. - Discharge Instructions: Cast or Splint Care, Adult, Finger Fracture. - Prescriptions for Keflex 500 mg Oral Capsule - take 1 capsule by ORAL route every 6 hours for 10 days; 40 capsule. Tylenol- Codeine #3 300-30 mg Oral Tablet - take 2 tablets by ORAL route every 4-6 hours As needed; 20 tablet. - Medication Reconciliation Form, Thank You Letter, Antibiotic Education, Prescription Opioid Use form. - Follow up: Pepito Dunlap MD; When: Other; Reason: Wound Recheck, If symptoms return, Recheck today's complaints, Continuance of care, Re-evaluation by your physician. - Problem is new. - Symptoms have improved. - Notes: Call Dr. Terry's officetomorrow morning to schedule a time on Sunday - 08/24/2020to be evaluated and treated. [facility] Mena Terry MD [address] [facility] [address] Offuce Number: [phone] Signatures: Dispatcher [employer] EDMS Marvin Ramos MD MD cha Smirch, Shelby, RN RN ss Jerrod Mei, SENIOR COMMERCIAL LOAN OFFICER SENIOR COMMERCIAL LOAN OFFICER pm1 Gui, Jeimy kj1 Luke Holden RN RN ll1 Corrections: (The following items were deleted from the chart) 08/22 11:57 11:13 08/22/2020 11:13 Discharged to Home. Impression: Displaced fracture of proximal kj1 phalanx of right index finger. Condition is Stable. Forms are Medication Reconciliation Form, Thank You Letter, Antibiotic Education, Prescription Opioid Use. Follow up: Pepito Dunlap; When: Other; Reason: Wound Recheck, If symptoms return, Recheck today's complaints, Continuance of care, Re-evaluation by your physician. Problem is new. Symptoms have improved. pm1
--- NOTE | 2020-08-22 11:14 | ER ---
Nurse's Notes [facility] Name: Scott Mederos Age: 70 yrs Sex: Male : 1950 Arrival Date: 08/22/2020 Time: 09:40 Bed 6 Private MD: Diagnosis: Displaced fracture of proximal phalanx of right index finger Presentation: 08/22 09:55 Chief complaint: Patient states: pain and deformity to R index finger after a fall ss thirty minutes ago. Coronavirus screen: Client denies travel out of the [place] in the last 14 days. Ebola Screen: Patient denies exposure to infectious person. Patient denies travel to an Ebola-affected area in the 21 days before illness onset. Initial Sepsis Screen: Does the patient meet any 2 criteria? No. Patient's initial sepsis screen is negative. Does the patient have a suspected source of infection? No. Patient's initial sepsis screen is negative. Risk Assessment: Do you want to hurt yourself or someone else? Patient reports no desire to harm self or others. Onset of symptoms was August 22, 2020. 09:55 Method Of Arrival: Ambulatory ss 09:55 Acuity: LUIS 4 ss Triage Assessment: 10:16 General: Appears uncomfortable. Injury Description: Abrasion Bruise. ll1 Historical: - Allergies: 09:57 Acyclovir; ss 09:57 Demerol; ss 09:57 Meperidine; ss 09:57 Vancomycin; ss - PMHx: 09:57 Diabetes - IDDM; GERD; hypotension; Hypertension; High Cholesterol; Hypothyroidism; ss Neck/Throat Cancer; Renal Disease; - Immunization history:: Adult Immunizations up to date. - Social history:: Smoking status: Patient denies any tobacco usage or history of. Screenin:15 Abuse screen: Denies threats or abuse. Nutritional screening: No deficits noted. ll1 Tuberculosis screening: No symptoms or risk factors identified. Fall Risk Fall in past 12 months (25 points). Ambulatory Aid- Crutches/Cane/Walker (15 pts). Gait- Weak (10 pts.). Total Phoenix Fall Scale indicates High Risk Score (45 or more points). Fall prevention measures have been instituted. Side Rails Up X 2 Placed Close to Nursing Station Frequent Obs/Assessments Occuring As available patient and family educated on Fall Prevention Program and Strategies. Assessment: 10:13 General: Appears in no apparent distress. Behavior is calm, cooperative, appropriate ll1 for age. Pain: Complains of pain in R hand Pain Quality of pain is described as aching, Pain began 1 hour ago. Aggravated by increased activity. Derm: Skin is pink, warm \T\ dry. Wound noted skin tear to R hand and 4th digit Reports skin tear to top of hand and 4th digit. Musculoskeletal: Circulation, motion, and sensation intact. Capillary refill < 3 seconds, Tenderness present in R hand 4th digit Reports pain in R hand. Vital Signs: 09:55 Pulse 78; Resp 18; Temp 98.0(TE); Pulse Ox 95% ; Weight 70.31 kg; Height 5 ft. 11 in. ss (180.34 cm); Pain 4/10; 11:18 BP 109 / 57; ll1 09:55 Body Mass Index 21.62 (70.31 kg, 180.34 cm) ED Course: 09:40 Patient arrived in ED. ds1 09:48 Jerrod Mei NP is PHCP. pm1 09:48 Marvin Ramos MD is Attending Physician. pm1 09:56 Triage completed. ss 09:57 Arm band placed on left wrist. ss 10:12 Luke Holden, ROSANNA is Primary Nurse. ll1 10:15 Patient has correct armband on for positive identification. Bed in low position. Call ll1 light in reach. Side rails up X 1. Cardiac monitoring not applicable on this patient. 10:26 Hand Right 3 View XRAY In Process Unspecified. EDMS 11:11 Pepito Dunlap MD is Referral Physician. pm1 11:20 Hand Right 3 View XRAY In Process Unspecified. EDMS 11:57 No provider procedures requiring assistance completed. Patient did not have IV access ll1 during this emergency room visit. Administered Medications: 10:23 Drug: [place] 5 mg-325 mg 1 tabs Route: PO; ll1 11:58 Follow up: Response: No adverse reaction; Pain is decreased; RASS: Alert and Calm (0) ll1 10:23 Not Given (UTD): Tetanus-Diphtheria Toxoid Adult 0.5 ml IM once ll1 11:15 Drug: Ancef 1 grams Route: IM; Site: left gluteus; ll1 11:57 Follow up: Response: No adverse reaction ll1 Outcome: 11:13 Discharge ordered by . pm1 11:57 Patient left the ED. kj1 Signatures: Dispatcher [employer] EDMS Sandra Gallagher ds1 Jennyfer Alvarado RN RN ss Jerrod Mei, COLLAR FUSER COLLAR FUSER pm1 Jeimy Messer kj1 Luke Holden RN RN ll1
--- NOTE | 2020-08-22 11:45 | RAD REPORT ---
EXAM DESCRIPTION: RAD - Hand Right 3 View - 08/22/2020 11:19 am CLINICAL HISTORY: Right hand pain status post injury FINDINGS: A splint immobilizes the previously described fracture second proximal phalanx. There is better alignment of the fracture fragments with less angulation.
[2020-08-22 12:17] VITALS: TEMP 98; O2SAT 95
[2020-08-22 12:18] VITALS: BP 109/57
== END 2020-08-22 11:57 | disposition home or self-care (01) ==
LOC: ER 09:38
PROC: 2W3JX1Z Immobilization of Right Finger using Splint (ICD-10-PCS; principal; 2020-08-22)
DX: S62.610A Displaced fracture of proximal phalanx of right index finger, initial encounter for closed fracture (principal); W01.0XXA Fall on same level from slipping, tripping and stumbling without subsequent striking against object, initial encounter; Y93.01 Activity, walking, marching and hiking; Y92.9 Unspecified place or not applicable; Z23 Encounter for immunization; Z88.1 Allergy status to other antibiotic agents; Z88.3 Allergy status to other anti-infective agents; Z88.5 Allergy status to narcotic agent; Z88.8 Allergy status to other drugs, medicaments and biological substances; I10 Essential (primary) hypertension
CPT/HCPCS: 73130 ×2; 90714; 96372; 99283; 29130; J0690

== ENCOUNTER 2020-08-30 07:28 | Day surgery (SDC) | payer OTHER ==
[2020-08-27 09:20] LABS: Absolute Lymphocytes (CBC) 0.9 K/uL (0.7-4.9); Basophils % 0.8 % (0-1.3); Hematocrit 30.7 % (39.6-49.0); Lymphocytes % 7.8 % (15.3-44.8); MPV 8.2 fL (7.6-11.3); RBC Red Blood Cell Count 3.34 M/uL (4.33-5.43)
[2020-08-27 09:24] LABS: Potassium 4.7 mmol/L (3.5-5.1)
--- NOTE | 2020-08-27 10:12 | RAD REPORT ---
EXAM DESCRIPTION: RAD - Chest Pa And Lat (2 Views) - 08/27/2020 9:04 am CLINICAL HISTORY: PREOP, pending surgery on the right second digit COMPARISON: Portable chest April 2020 TECHNIQUE: Frontal and lateral views of the chest were obtained. FINDINGS: The lungs are only slightly underinflated. Left lung field is clear. Interstitial and alve olar opacities are present in the lateral right upper lobe with peribronchial thickening seen. There may be questionable cystic or cavitary change in the right upper lobe as well. This cavitary finding is less definitive. No central mediastinal or hilar mass lesion evident. Trachea is midline. Sternotomy wires are in miquel ce since prior imaging. Heart size is normal and central vasculature is within normal limits. No ple ural effusion or pneumothorax seen. No acute bony finding noted. No aortic abnormality. IMPRESSION: Mild to moderate right upper lobe pneumonia changes are evident on this examination with no respiratory symptoms noted in the provided history. Correlation is needed with clinical presentation.
[2020-08-30] MEDS ORDERED: NA CHLORIDE 0.9% 1,000 ML ONE (08:04)
[2020-08-30] MEDS ORDERED: CEFAZOLIN/SWI 2gm 2 GM/20 ML SYR ONE (08:04)
[2020-08-30] MEDS ORDERED: propofoL 200 MG/20 ML VIAL IV ONE (08:27)
[2020-08-30] MEDS ORDERED: FENTANYL CITR 100 MCG/2 ML ONE (08:27)
[2020-08-30] MEDS ORDERED: dexAMETHasone 4 MG/ML VIAL ONE (08:28)
[2020-08-30] MEDS ORDERED: ONDANSETRON 4 MG/2 ML VIAL ONE (08:28)
[2020-08-30] MEDS ORDERED: KETOROLAC 30 MG/ML INJ ONE (08:28)
[2020-08-30] MEDS ORDERED: LIDOCAINE 2% MPF 5 ML VIAL ONE (08:28)
[2020-08-30] MEDS ORDERED: BUPIVACA 0.25%/EPI 0.0005% MDV 50 ML VIAL ONE (09:09)
[2020-08-30] MEDS ORDERED: NS 0.9% VIAL 10 ML ONE (09:31)
[2020-08-30] MEDS ORDERED: Phenylephrine HCl 10 MG/ML 1 ML VIAL ONE (09:31)
--- NOTE | 2020-08-30 10:12 | RAD REPORT ---
EXAM DESCRIPTION: RAD - Hand Right 2 View - 08/30/2020 10:02 am FINDINGS: Multiple portable C-arm views were obtained numbering 146 during fluoroscopic assisted fra cture fixation and hardware placement. Fluoro time was 3.8 minutes. Cumulative dose was 6.20 mGy.
[2020-08-30 10:25] VITALS: O2SAT 98
[2020-08-30] MEDS ORDERED: HYDROCODONE/APAP 5/325 MG TAB ONE (11:16)
[2020-08-30 12:56] VITALS: BP 141/78; TEMP 97.4
--- NOTE | 2020-08-30 15:04 | OP ---
Date of Procedure: 08/30/2020 Surgeon: MEHREEN BYERS Preoperative Diagnosis: Fracture of right index finger proximal phalanx. (S62.6210D) Postoperative Diagnosis: Fracture of right index finger proximal phalanx. (84686) Procedure: Closed reduction percutaneous pinning of right index finger proximal phalanx fracture. Anesthesia: General with local block. Iv Fluid: 800. Estimated Blood Loss: Minimal. Urine Output: Not recorded. Findings: Two 0.035 inch cross K-wires were placed through the fracture site with subsequent stabili zation. No digital overlap on digital cascade was noted at the end of the case. Indications: Scott Mederos is a 70-year-old right hand dominant male who sustained a fall approximat ameya 1 week prior resulting in a transverse facture of his right index finger proximal phalanx. He wa s treated with closed reduction in the operating room and splinted and subsequently sent to al for fo llowup. His fracture was unstable based on imaging and exam. Thus we discussed different options fo r reduction. He had history of cardiac disease and was on anticoagulation. We discussed open versus closed options to reduce his fracture and based on his clinical picture of medical comorbidities we ultimately chose closed reduction and percutaneous pinning to achieve our goals. We discussed the ri sks and benefits including bleeding and infection, injuries to surrounding structures, malunion, nonu nion, pin site infection and need for additional procedure. After thorough discussion of the risks a nd benefits, the patient was deemed an appropriate surgical candidate. Procedure In Detail: After written consent, the patient was brought into the operating room. Pressu re points were padded. SCDs were turned on. Preoperative IV antibiotics were given. The patient wa s then placed under general anesthesia. A time-out was then performed. Arm was abducted and table t urned to 90 degrees. An upper extremity tourniquet was then placed. His hand was cleaned with alcoh ol and then it was prepped and draped in the usual fashion. First, fluoroscopy was used to visualize d the fracture, which was transverse across the shaft, unstable in nature. There were some small com minuted segments. After this all Esmarch was used to exsanguinate the arm and tourniquet was inflate d to 250 mmHg. After this two 0.035 inch K-wires were placed distally from the head of the proximal phalanx bilaterally down through the shaft. After this was confirmed via the fluoroscopy, the fractu re was reduced and pins driven down into the ontralateral shafts and exceeding the cortex for additio nal stabilization. Adequate reduction was confirmed on fluoroscopy and this was printed for the william t. After this digital block was performed with 0.25% Marcaine with epinephrine. After this the yissel ent was cleaned and dried. Pins were cut short and pining caps were placed and Xeroform was placed a round the pin bases and at the proximal phalanx wound. Then he was placed into a volar based splint in neutral position including his index and middle finger. The tourniquet was then subsequently take n down. The patient tolerated the procedure well. All instrument counts and laparotomy pads were co unted for by at the end of the procedure. JULIO CESAR/JERONIMO Voice ID: [id number] Report ID: [id number]
== END 2020-08-30 11:20 | disposition home health service (06) ==
LOC: OR 07:28
PROVIDERS: ATTEND Plastic Surgery
PROC: 0PST34Z Reposition Right Finger Phalanx with Internal Fixation Device, Percutaneous Approach (ICD-10-PCS; principal; 2020-08-30 08:30)
DX: S62.610A Displaced fracture of proximal phalanx of right index finger, initial encounter for closed fracture (principal); E11.9 Type 2 diabetes mellitus without complications; I10 Essential (primary) hypertension; Z20.822 Contact with and (suspected) exposure to COVID-19
CPT/HCPCS: 93005; 85025; 80048; 36415; 82947 ×2; 71046; 73120; 26727; U0003; J2704; J2370; J3010; J0690; J7030; J2405; J1100

== ENCOUNTER 2020-10-18 09:22 | Observation (INO) | payer OTHER ==
[2020-10-18 09:38] LABS: Absolute Lymphocytes (CBC) 1.1 K/uL (0.7-4.9); Basophils % 0.7 % (0-1.3); Hematocrit 27.2 % (39.6-49.0); Lymphocytes % 17.3 % (15.3-44.8); MPV 7.8 fL (7.6-11.3); RBC Red Blood Cell Count 2.98 M/uL (4.33-5.43)
[2020-10-18 10:27] LABS: Potassium 4.7 mmol/L (3.5-5.1)
[2020-10-18] MEDS ORDERED: NA CHLORIDE 0.9% 1,000 ML ONE (10:30)
[2020-10-18] MEDS ORDERED: CEFAZOLIN/SWI 1gm 2 GM/20 ML SYR ONE (10:30)
[2020-10-18] MEDS: BUPIVACAINE 0.5% PF 10 ML VIAL ONE ×2 (14:06→14:10)
[2020-10-18] MEDS: LIDOCAINE 1% W/EPI 1:100,000 10 ML VIAL ONE ×2 (14:10→14:13)
[2020-10-18] MEDS ORDERED: EPHEDRINE SULF 50 MG/ML VIAL ONE ×2 (14:34→14:35)
[2020-10-18] MEDS ORDERED: BACITRACIN OINTMENT 15 GM TUBE TOP ONE (15:29)
--- OUTSIDE RECORDS SUMMARY | 2020-10-18 18:11 | XMS REPORT | Continuity of Care Document ---
:1950 Author Organization [facility] t Address [address] [place] [address] Dr. Munoz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 2019-[address] by by 07-09 Sadie - Dr.Livesay Ramos 00:00: Me dical 05/09/20 05/09/20 00 Center PAD PAD Disease Active 2019-[address] [facility] (periphera (periphera 07-06 Sahra kes - l artery l artery 00:00: Medica l disease) disease) 00 Center Uncontroll Uncontroll Disease Active 2019-[address] ed type 2 ed type 2 07-06 [facility] - diabetes diabetes 00:00: Medica l mellitus mellitus 00 Center with with hyperglyce hyperglyce helena helena Coronary Coronary Disease Active 2019-06 [facility] artery artery 07-05 [facility] - disease disease 00:00: Medical 00 [...] [facility] - adverse 00:00: Medical reaction 00 Center s Social History Social Habit Start Date Stop Date Quantity Comments Source Sex Assigned At [facility] Medications Ordered Filled Start Stop Current Ordering Indication Dosage Frequency Signature Comments Components Source Medication Medication Date Date Medication? Clinician (SIG) Name Name aspirin 81 2019-06- No 81mg QD Take [address] [facility] [address] MG EC 07-19 11-25 tablet (81 [facility] - tablet 00:00: 23:59 mg total) Medic al 00 :00 by mouth Center daily. gabapentin 2019-06 Yes 300mg [id number] Take [address] (NEURONTIN) 1-24 [id number] mg by L ukes - 300 MG 15:43: 3D mouth 3 Medical capsule 43 (three) Center times daily. liothyronin 2019-06 Yes 5ug QD Take [address] e (CYTOMEL) 1-24 by mouth Luke s - 5 MCG 15:43: daily. Medical tablet 43 Center midodrine 2019-06 Yes 10mg [id number] Take [address] (PROAMATINE 1-24 [id number] by mouth 3 [facility] - ) 10 [...] .1mg QD Take [address] sone -18 05-24 tablet [facility] - (FLORINEF) 00:00: 23:59 (0.1 [...] Max Daily Amount: 12 tablets ondansetron 2019-06- 4mg Take [address] (ZOFRAN-ODT 07-18 [...] Source Heart rate 2020-05-18 14:37:00 86 /min [facility] Body temperature 2020-05-18 14:37:00 36.22 Sneha [facility] Respiratory rate 2020-05-18 14:37:00 18 /min [facility] Oxygen saturation in 2020-05-18 14:37:00 95 /min [facility] Arterial blood by Medical Ce nter Pulse oximetry Systolic blood 2020-05-18 14:37:00 138 mm[Hg] [facility] Diastolic blood 2020-05-18 14:37:00 67 mm[Hg] [facility] S [facility] Body weight 2020-05-16 06:39:00 72.349 kg [facility] BMI 2020-05-16 06:39:00 22.25 kg/m2 [facility] Body height 2020-05-04 23:43:00 180.3 cm [facility] Procedures Procedure Date / Time Performed Performing Clinician Miguel muller POCT-GLUCOSE METER 2020-05-18 11:38:00 Jericho Espinosa [facility] POCT-GLUCOSE METER 2020-05-18 07:18:00 Jericho Espinosa [facility] POCT-GLUCOSE METER 2020-05-18 04:41:00 Jericho Espinosa [facility] POCT-GLUCOSE METER 2020-05-17 20:43:00 Jericho Espinosa [facility] POCT-GLUCOSE METER 2020-05-17 16:34:00 Jericho Espinosa [facility] POCT-GLUCOSE METER 2020-05-17 11:21:00 Jericho Espinosa [facility] POCT-GLUCOSE METER 2020-05-17 07:54:00 Jericho Espinosa [facility] BASIC METABOLIC PANEL (7) 2020-05-17 04:56:00 Jesús, Jericho Gr [facility] CBC (HEMOGRAM ONLY) 2020-05-17 04:56:00 Jesús, Jericho Marquez [facility] MAGNESIUM 2020-05-17 04:56:00 Jericho Espinosa [facility] POCT-GLUCOSE METER 2020-05-16 18:06:00 Jericho Espinosa [facility] POCT-GLUCOSE METER 2020-05-16 17:17:00 Jericho Espinosa [facility] POCT-GLUCOSE METER 2020-05-16 11:57:00 Jericho Espinosa [facility] POCT-GLUCOSE METER 2020-05-16 07:55:00 Jericho Espinosa [facility] BASIC METABOLIC PANEL (7) 2020-05-16 06:16:00 Jesús Jericho Gr [facility] CBC (HEMOGRAM ONLY) 2020-05-16 06:16:00 Jericho Espinosa [facility] MAGNESIUM 2020-05-16 06:16:00 Jericho Espinosa [facility] POCT-GLUCOSE METER 2020-05-15 21:13:00 Jericho Espinosa [facility] POCT-GLUCOSE METER 2020-05-15 16:59:00 Jericho Espinosa [facility] BASIC METABOLIC PANEL (7) 2020-05-15 11:00:00 Jesús Jericho Prateek [facility] CBC (HEMOGRAM ONLY) 2020-05-15 11:00:00 Jesús, Jericholubna Marquez [facility] MAGNESIUM 2020-05-15 11:00:00 [facility] POCT-GLUCOSE METER 2020-05-15 07:28:00 [facility] POCT-GLUCOSE METER 2020-05-14 21:56:00 [facility] POCT-GLUCOSE METER 2020-05-14 15:49:00 [facility] XR CHEST 1 VIEW 2020-05-14 14:49:00 [facility] PORTABLE/BEDSIDE [facility] CBC (HEMOGRAM ONLY) 2020-05-14 13:13:00 [facility] POCT-GLUCOSE METER 2020-05-14 12:38:00 [facility] BASIC METABOLIC PANEL (7) 2020-05-14 11:13:00 My Sharma CH, I [facility] ECG 12-LEAD 2020-05-14 10:34:15 [facility] POCT-GLUCOSE METER 2020-05-14 07:48:00 [facility] POCT-GLUCOSE METER 2020-05-13 20:02:00 [facility] POCT-GLUCOSE METER 2020-05-13 16:58:00 [facility] SARS-COV2/RT-PCR ([facility] & 2020-05-13 16:46:00 Josh Ellison [facility]ST 1 VIEW 2020-05-13 13:18:00 [facility] PORTABLE/[facility] POCT-GLUCOSE METER 2020-05-13 12:33:00 [facility] POCT-GLUCOSE METER 2020-05-13 07:42:00 [facility] POCT-GLUCOSE METER 2020-05-12 20:52:00 [facility] URINE CULTURE 2020-05-12 17:07:00 [facility] SODIUM, RANDOM URINE 2020-05-12 17:07:00 [facility] CREATININE, RANDOM URINE 2020-05-12 17:07:00 [facility] Jericholubna riggins [facility] URINALYSIS W/ REFLEX 2020-05-12 17:07:00 Jes[facility]sJericho [facility] URINE CULTURE [facility] OSMOLALITY, URINE 2020-05-12 17:07:00 [facility] POCT-GLUCOSE METER 2020-05-12 17:02:00 [facility] POCT-GLUCOSE METER 2020-05-12 12:25:00 [facility] CBC (HEMOGRAM ONLY) 2020-05-12 09:15:00 [facility] COMPREHENSIVE METABOLIC 2020-05-12 09:15:00 [facility] CORTISOL 2020-05-12 09:14:00 Jayce Carranza [facility] POCT-GLUCOSE METER 2020-05-12 07:19:00 [facility] CALCIUM, IONIZED 2020-05-12 04:41:00 Celeste Cornelius [facility] XR CHEST 1 VIEW 2020-05-12 04:33:00 Josh Ellison [facility] ukes PORTABLE/BEDSIDE [facility] POCT-GLUCOSE METER 2020-05-11 21:18:00 [facility] POCT-GLUCOSE METER 2020-05-11 17:41:00 [facility] SARS-COV2/RT-PCR ([facility] & 2020-05-11 16:14:00 Agueda Mae [facility] - REF LABS) [facility] POCT-GLUCOSE METER 2020-05-11 11:30:00 [facility] XR CHEST 1 VIEW 2020-05-11 09:00:00 Lisa Gilliland [facility] St L ukes - PORTABLE/BEDSIDE [facility] POCT-GLUCOSE METER 2020-05-11 08:45:00 Clayton Reeder [facility] BASIC METABOLIC PANEL (7) 2020-05-11 04:44:00 TerraJosh haideri fam [facility] MAGNESIUM 2020-05-11 04:44:00 TerraKaelh Néstor [facility] PHOSPHORUS 2020-05-11 04:44:00 Terra [facility] CBC (HEMOGRAM ONLY) 2020-05-11 04:44:00 Terra [facility] CALCIUM, IONIZED 2020-05-11 04:44:00 Celeste Cornelius [facility] PREPARE RBC 2020-05-10 23:54:00 [facility] PREPARE PLASMA 2020-05-10 23:54:00 [facility] POCT-GLUCOSE METER 2020-05-10 21:22:00 [facility] POCT-GLUCOSE METER 2020-05-10 16:24:00 [facility] CALCIUM, IONIZED 2020-05-10 14:39:00 Celeste Cornelius [facility] POCT-GLUCOSE METER 2020-05-10 11:19:00 Edith, [facility] PROTHROMBIN TIME/INR 2020-05-10 08:06:00 Julio Mcintyre [facility] APTT 2020-05-10 08:06:00 Julio Mcintyre [facility] FIBRINOGEN 2020-05-10 08:06:00 Julio Mcintyre [facility] PLATELET COUNT 2020-05-10 08:06:00 Julio Mcintyre [facility] POCT-GLUCOSE METER 2020-05-10 08:05:00 Edith [facility] BASIC METABOLIC PANEL (7) 2020-05-10 03:45:00 Clayton Reeder I [facility] CBC W/PLT COUNT & AUTO 2020-05-10 03:45:00 Clayton [facility] MAGNESIUM 2020-05-10 03:45:00 [facility] PHOSPHORUS 2020-05-10 03:45:00 Terra [facility] CALCIUM, IONIZED 2020-05-10 03:45:00 Celeste Cornelius [facility] BLOOD GAS, ARTERIAL 2020-05-10 03:45:00 Celeste Cornelius [facility] TYPE AND SCREEN, 2020-05-10 03:45:00 [facility] AUTOMATED [facility] XR CHEST 1 VIEW 2020-05-10 01:12:00 [facility] Center BLOOD GAS, ARTERIAL 2020-05-09 21:12:00 Celeste Cornelius [facility] SODIUM NA-STAT LAB 2020-05-09 21:12:00 Celeste Cornelius [facility] POTASSIUM-STAT LAB 2020-05-09 21:12:00 [facility] GLU[facility] 2020-05-09 21:12:00 Celeste Cornelius [facility] HGB/HCT (H&H) - STAT LAB 2020-05-09 21:12:00 Celeste Corn[facility]ius [facility] BASIC METABOLIC PANEL (7) 2020-05-09 21:12:00 Celeste Cornelius Ther ganesh [facility] MAGNESIUM 2020-05-09 21:12:00 [facility] PHOS[facility]US 2020-05-09 21:12:00 Celeste Cornelius [facility] CALCIUM, IONIZED 2020-05-09 21:12:00 Celeste Cornelius [facility] POCT-GLUCOSE METER 2020-05-09 20:04:00 Clayton Reeder [facility] BLOOD GAS, ARTERIAL 2020-05-09 19:01:00 Janet Lamar [facility] POCT-GLUCOSE METER 2020-05-09 18:47:00 Merchant [facility] POCT-GLUCOSE METER 2020-05-09 16:25:00 Merchant [facility] XR CHEST 1 VIEW 2020-05-09 15:46:00 Chilango Angel [facility] PORTABLE/BEDSIDE [facility] CBC W/PLT COUNT & AUTO 2020-05-09 15:32:00 Chilango Angel [facility] BASIC METABOLIC PANEL (7) 2020-05-09 15:30:00 Faheem Morales [facility] BLOOD GAS, ARTERIAL 2020-05-09 15:30:00 Faheem Morales [facility] MAGNESIUM 2020-05-09 15:30:00 Chilango Angel [facility] PHOSPHORUS 2020-05-09 15:30:00 Chilango Angel [facility] APTT 2020-05-09 15:30:00 Chilango Angel [facility] PROTHROMBIN TIME/INR 2020-05-09 15:30:00 Chilango Angel [facility] OXYGEN SATURATION, 2020-05-09 15:30:00 Chilango Angel [facility] LACTIC ACID, ARTERIAL 2020-05-09 15:30:00 Chilango Angel [facility] CALCIUM, IONIZED 2020-05-09 15:29:00 Chilango Angel [facility] TRANSFUSE PLASMA 2020-05-09 13:53:44 Damon Reeves [facility] TRANSFUSE LEUKO-REDUCED 2020-05-09 13:53:28 Damon Reeves [facility] RED BLOOD CELLS [facility] POCT-ACT 2020-05-09 13:41:00 Clayton Reeder [facility] BLOOD GAS, ARTERIAL 2020-05-09 13:34:52 Damon Reeves [facility] PT/APTT 2020-05-09 13:34:52 Damon Reeves [facility] FIBRINOGEN 2020-05-09 13:34:52 Damon Reeves [facility] PLATELET COUNT 2020-05-09 13:34:52 Damon Reeves [facility] SODIUM NA-STAT LAB 2020-05-09 13:34:52 Damon Reeves [facility] POTASSIUM-STAT LAB 2020-05-09 13:34:52 Damon Reeves [facility] GLUCOSE-STAT LAB 2020-05-09 13:34:52 Damon Reeves [facility] HGB/HCT (H&H) - STAT LAB 2020-05-09 13:34:52 Damon Reeves [facility] CBC W/PLT COUNT & AUTO 2020-05-09 13:34:00 Faheem Morales [facility] TRANSFUSE PLASMA 2020-05-09 13:19:27 Damon Reeves [facility] POCT-ACT 2020-05-09 13:16:00 [facility] BLOOD GAS, ARTERIAL 2020-05-09 13:13:55 Terra [facility] SODIUM NA-STAT LAB 2020-05-09 13:13:55 [facility] 2020-05-09 13:13:55 Edith [facility] GLUCOSE-STAT LAB 2020-05-09 13:13:55 [facility] HGB/HCT (H&H) - STAT LAB 2020-05-09 13:13:55 Edith [facility] POCT-ACT 2020-05-09 12:50:00 [facility] BLOOD GAS, ARTERIAL 2020-05-09 12:45:36 Terra [facility] SODIUM NA-STAT LAB 2020-05-09 12:45:36 Edith [facility] POTASSIUM-STAT LAB 2020-05-09 12:45:36 Edith [facility] GLUCOSE-STAT LAB 2020-05-09 12:45:36 Edith [facility] HGB/HCT (H&H) - STAT LAB 2020-05-09 12:45:36 Edith [facility] TRANSFUSE LEUKO-REDUCED 2020-05-09 12:29:[address] [facility] CELLS [facility] POCT-ACT 2020-05-09 12:11:00 [facility] BLOOD GAS, VENOUS 2020-05-09 12:07:08 Edith [facility] BLOOD GAS, ARTERIAL 2020-05-09 12:07:02 Josh Elilson [facility] SODIUM NA-STAT LAB 2020-05-09 12:07:02 Edith [facility] POTASSIUM-STAT LAB 2020-05-09 12:07:02 Edith [facility] GLUCOSE-STAT LAB 2020-05-09 12:07:02 Edith [facility] HGB/HCT (H&H) - STAT LAB 2020-05-09 12:07:02 Edith [facility] TRANSFUSE LEUKO-REDUCED 2020-05-09 12:03:12 Damon Reeves [facility] POCT-ACT 2020-05-09 11:35:00 Merchant, Clayton [facility] BLOOD GAS, ARTERIAL 2020-05-09 10:40:19 Damon Reeves [facility] SODIUM NA-STAT LAB 2020-05-09 10:40:19 Damon Reeves [facility] POTASSIUM-STAT LAB 2020-05-09 10:40:19 Damon Reeves [facility] GLUCOSE-STAT LAB 2020-05-09 10:40:19 Damon Reeves [facility] HGB/HCT (H&H) - STAT LAB 2020-05-09 10:40:19 Damon Reeves Perfe[facility] to [facility] TRANSFUSE LEUKO-REDUCED 2020-05-09 10:36:34 Damon Reeves [facility] RED BLOOD CELLS [facility] BYPASS,AORTO CORONARY 2020-05-09 09:04:00 Edith [facility] SELMA/[facility] ENDOSCOPIC HARVEST,VEIN 2020-05-09 09:04:00 Edith [facility] SAMSON 2020-05-09 09:04:00 Edith, [facility] PLATELET AGGREGATION: 2020-05-09 08:22:00 Mariana Gallardo [facility] FUNCTION SCREEN [facility] BASIC METABOLIC PANEL (7) 2020-05-09 08:22:00 [facility] CBC W/PLT COUNT & AUTO 2020-05-09 08:22:00 [facility] DIFFERENTIAL [facility] MAGNESIUM 2020-05-09 08:22:00 Faheem Morales [facility] PHOSPHORUS 2020-05-09 08:22:00 Faheem Morales [facility] POCT-GLUCOSE METER 2020-05-09 07:20:00 [facility] POCT-GLUCOSE METER 2020-05-08 21:15:00 [facility] POCT-GLUCOSE METER 2020-05-08 15:54:00 [facility] POCT-GLUCOSE METER 2020-05-08 12:12:00 [facility] PLATELET AGGREGATION: 2020-05-08 11:40:00 [facility] FUNCTION SCREEN [facility] BASIC METABOLIC PANEL (7) 2020-05-08 11:40:00 [facility] CBC W/PLT COUNT & AUTO 2020-05-08 11:40:[address] [facility] POCT-GLUCOSE METER 2020-05-08 08:11:00 Merchant [facility] POCT-GLUCOSE METER 2020-05-07 21:01:00 [facility] HEMOGLOBIN A1C 2020-05-07 18:17:00 [facility] POCT-GLUCOSE METER 2020-05-07 17:15:00 Merchant [facility] ECG 12-LEAD 2020-05-07 17:02:29 [facility] PROTHROMBIN TIME/INR 2020-05-07 16:16:00 [facility] APTT 2020-05-07 16:16:00 [facility] POCT-GLUCOSE METER 2020-05-07 12:38:00 [facility] BASIC METABOLIC PANEL (7) 2020-05-07 06:36:00 Raul Magaña [facility] MAGNESIUM 2020-05-07 06:36:00 Raul Magaña [facility] CBC W/PLT COUNT & AUTO 2020-05-07 06:36:00 [facility] LIPID PANEL 2020-05-07 06:36:00 [facility] PLATELET AGGREGATION: 2020-05-07 06:35:00 Mariana Gallardo [facility] FUNCTION SCREEN [facility] C. DIFFICILE GDH TOXIN 2020-05-06 21:48:00 [facility] POCT-GLUCOSE METER 2020-05-06 21:03:00 [facility] SARS-COV2/RT-PCR ([facility] & 2020-05-06 20:41:00 Josh Ellison [facility] - REF LABS) Medical Center ABORH, MANUAL 2020-05-06 20:41:00 Nadege Biswas [facility] POCT-GLUCOSE METER 2020-05-06 18:13:00 Clayton Reeder [facility] XR CHEST 2 VIEWS 2020-05-06 17:14:00 My Sharma [facility] HC ARTERIAL DOPPLER LEGS 2020-05-06 17:00:00 Sriram Denis CH I [facility] - INGA [facility] HC CAROTID DOPPLER INGA 2020-05-06 17:00:00 Gregory Bacon [facility] HC VENOUS DOPPLER EXT INGA 2020-05-06 17:00:00 Gregory Bacon [facility] HC ARTERIAL(NICOLE W 2020-05-06 15:57:00 Sriram Denis [facility] - DOPPLER)ONLY [facility] HEMOGLOBIN A1C 2020-05-06 13:01:00 Edith [facility] TYPE AND SCREEN, 2020-05-06 13:01:00 Mariana Gallardo [facility] POCT-GLUCOSE METER 2020-05-06 11:40:00 [facility] POCT-GLUCOSE METER 2020-05-06 08:47:00 [facility] BASIC METABOLIC PANEL (7) 2020-05-06 06:05:00 Raul Magaña [facility] MAGNESIUM 2020-05-06 06:05:00 Raul Magaña [facility] CBC W/PLT COUNT & AUTO 2020-05-06 06:05:[address] [facility] POCT-GLUCOSE METER 2020-05-05 20:59:00 Merchant [facility] PLATELET AGGREGATION: 2020-05-05 20:42:00 Sriram Denis [facility] - FUNCTION SCREEN [facility] ECG 12-LEAD 2020-05-05 18:39:47 Sriram Denis [facility] - [facility] POCT-GLUCOSE METER 2020-05-05 16:54:00 Clayton Redeer [facility] 2D ECHO W/ DOPPLER 2020-05-05 13:16:31 Raul Magaña [facility] (CW/PW/COLOR) [facility] POCT-GLUCOSE METER 2020-05-05 11:57:00 Clayton Reeder [facility] 2D ECHO W/ DOPPLER 2020-05-05 11:33:22 Kendall Denisherme [facility] - (CW/PW/COLOR) [facility] BASIC METABOLIC PANEL (7) 2020-05-05 05:20:00 Raul Magaña [facility] MAGNESIUM 2020-05-05 05:20:00 Raul Magaña [facility] LIPID PANEL 2020-05-05 05:20:00 Raul Magaña [facility] HEMOGLOBIN A1C 2020-05-05 05:20:00 Raul Magaña [facility] PROTHROMBIN TIME/INR 2020-05-05 05:20:00 Raul Magaña [facility] I [facility] CBC W/PLT COUNT & AUTO 2020-05-05 05:20:00 Raul Mag[facility] VASCULAR DIAGRAM -SCAN 2020-05-04 00:00:00 ProviderMuna [facility] Plan of Care Planned Activity Planned Date Details Comments Source Future Scheduled 2020-08-07 Hemoglobin A1c [facility] St Sahra kes - Test 00:00:00 [facility] (procedure) [code = 09716615] Future Scheduled 2020-06-[address] [...] 00:00:00 (1 of 1 - Medical Center [id number] PCV13) [code = PNEUMOCOCCAL 65+ YRS (1 of 1 - [id number] PCV13)] Future Scheduled 1999 SHINGLES VACCINES (1 [...] 00:00:00 examination Medical Center (regime/therapy) [code = 235875155] Future Scheduled 1959 Urine screening for [facility] - Test 00:00:00 protein (procedure) Medical Center [code = 131258976] Future Scheduled [address] [facility] - Test 00:00:00 [facility] ([facility]) [code = 676282487] Results Test Description Test Time Test Comments Results Result Sourc e Comments VASCULAR DIAGRAM 2020-05-24 [facility] -SCAN 13:12:38 unspecified - Medical provider. Center POC-Glucose meter 2020-05-18 11:50:00 Test Item Value Reference Range Interpretation Comme nts POC-Glucose Meter (test code = 236 mg/dL 70-110 H : TESTED AT [facility] [address]) [facility], [facility] 30: [employer] Professor/Techni josephine ID = [id number] for Huan GONZALEZ Lab Interpretation (test code = Abnormal 30685-9) [facility] [id number] 11:50:00 Test Item Value Reference Range Interpretation Comments POC-GLUCOSE METER 236 mg/dL 70-110 H : TESTED A T [facility] [address] (DELFINA) (test code = [facility], 153) [address]: [employer] Professor/Techni josephine ID = [id number] for ALLI LEEANNA Raul Sherri POCT-GLUCOSE [id number] 08:12:00 Test Item Value Reference Range Interpretation Comments POC-GLUCOSE METER 82 mg/dL 70-110 : TESTED A T [facility] [address] (BEAKER) (test code = [facility], 1538) [address]1447: [employer] Professor/Techni josephine ID = [id number] for SIMONA IGIULIANASI POCT-GLUCOSE [id number] 07:30:00 Test Item Value Reference Range Interpretation Comments POC-GLUCOSE METER 156 mg/dL 70-110 H : TESTED A T [facility] [address] (BEAKER) (test code = [facility], 153) [address]143: [employer] Professor/Techni josephine ID = [id number] for TATIANNA REDDY POCT-GLUCOSE [id number] 00:04:00 Test Item Value Reference Range Interpretation Comments POC-GLUCOSE METER 104 mg/dL 70-110 : TESTED A T [facility] [address] (BEAKER) (test code = [facility], 153) 12734: [employer] Professor/Techni josephine ID = [id number] for TAO HUDSON POCT-GLUCOSE [id number] 16:45:00 Test Item Value Reference Range Interpretation Comments POC-GLUCOSE METER 161 mg/dL 70-110 H : TESTED A T [facility] 67[address] (BEAKER) (test code = [facility], 1538) 28968: [employer] Professor/Techni josephine ID = [id number] for ERNESTO-CARTER, S HIKARA POCT-GLUCOSE [id number] 12:54:00 Test Item Value Reference Range Interpretation Comments POC-GLUCOSE METER 160 mg/dL 70-110 H : TESTED A T [facility] 6720 (BEAKER) (test code = [facility], 153) 14808: Practical Ministries Professor/Techni josephine ID = [id number] for ERNESTO-CARTER, S HIKARA POCT-GLUCOSE [id number] 12:54:00 Test Item Value Reference Range Interpretation Comments POC-GLUCOSE METER 103 mg/dL 70-110 : TESTED A T [facility] 6720 (BEAKER) (test code = [facility], 1538) 35541: [employer] Professor/Techni josephine ID = [id number] for Adam WHEAT Basic Metabolic [id number] 05:59:00 Test Item Value Reference Range Interpretation [...] (test code = 7.9 mg/dL 8.4-10.2 L 84081-5) EGFR (test code = 103 mL/min/1.73 sq m [facility] [place] [address]-2) NOT ACCURATE CREATININE CLEARANCE IN PREDICTING GLOMERULAR FILTRATION RATE . ESTIMATED GFR I S NOT APPLICABLE FOR DIALYSIS PATIENTS. BARRON (test code = BARRON) [employer] Ministries Professor ID - SUE L Lab Interpretation Abnormal (test code = 88963-4) [facility]00 Test Item Value Reference Range Interpretation Comments Magnesium (test code = 1.8 mg/dL 1.6-2.6 91212-2) BARRON (test code = BARRON) [employer] Professor ID - SUE L Lab Interpretation (test Normal code = 81471-5) [facility] 05:59[facility]00 Test Item Value Reference Range Interpretation Comments MAGNESIUM (BEAKER) (test code = 1.8 mg/dL 1.6-2.6 627) [employer] Professor ID - SUE BOSSASIC METABOLIC [id number] 05:59:00 Test Item Value Reference Range Interpretation [...] S NOT APPLICABLE FOR DIALYSIS PATIEN TS. [employer] Professor ID - PIAYA LCBC (Hemogram only)2020-05-17 05:38:00 Test Item Value Reference Range Interpretation Comments WBC (test code = 6690-2) 7.0 See_Comment [A utomated message] The system [employer] generated this result transmitted ref erence range: 3.5 - 10 .5 K/L. The refe rence range was not u sed to interpret this result as normal/abnor mal. RBC (test code = 789-8) 3.39 See_Comment L [Au tomated message] The system [employer] generated this result transmitted ref erence range: 4.63 - 6 .08 M/L. The refe rence range was not u sed to interpret this result as normal/abnor mal. MCHC (test code = 786-4) 32.2 See_Comment L [A utomated message] The system [employer] generated this result transmitted ref erence range: [...] See_Comment [Aut omated message] 777-3) The system [employer] generated this result transmitted ref erence range: 150 - 45 0 K/CU MM. The referen ce range was not u sed to interpret this result as normal/abnor mal. MPV (test code = 9.1 fL 9.4-12.4 L 70809-3) nRBC (test code = 413) 0 See_Comment [Aut omated message] The system [employer] generated this result transmitted ref erence range: 0 - 0 /1 00 WBC. The refere nce range was not u sed to interpret this result as normal/abnor mal. Lab Interpretation (test Abnormal code = 11524-1) [facility] (HEMOGRAM ONLY)2020-05-17 05:38:00 Test Item Value [...] 0-0 (BEAKER) (test code = 413) POCT-GLUCOSE [id number] 18:18:00 Test Item Value Reference Range Interpretation Comments POC-GLUCOSE METER 97 mg/dL 70-110 : TESTED A T [facility] 6720 (BEAKER) (test code = [facility] Denny [facility], 1538) 16666: [employer] Professor/Techni josephine ID = [id number] for GABE LEE POCT-GLUCOSE [id number] 17:29:00 Test Item Value Reference Range Interpretation Comments POC-GLUCOSE METER 66 mg/dL 70-110 L : Notified RN/MD: TESTED (BEAKER) (test code = [facility] 6720 [facility] 1538) [facility], 770 30: P[employer] Minist[employer] Professor/Techni josephine ID = [id number] for GABE LEE POCT-GLUCOSE [id number] 12:11:00 Test Item Value Reference Range Interpretation Comments POC-GLUCOSE METER 124 mg/dL 70-110 H : TESTED A T [facility] 6720 (BEAKER) (test code = [facility] Denny [facility], 1538) 02510: [employer] Professor/Techni josephine ID = [id number] for GABE MILLS POCT-GLUCOSE [id number] 08:07:00 Test Item Value Reference Range Interpretation Comments POC-GLUCOSE METER 141 mg/dL 70-110 H : TESTED A T [facility] 6720 (BEAKER) (test code = [facility], 1538) 12727: [employer] Professor/Techni josephine ID = [id number] for GABE MILLS BASIC METABOLIC [id number] 06:56:00 Test Item Value Reference Range Interpretation [...] S NOT APPLICABLE FOR DIALYSIS PATIEN TS. [employer] Professor ID - SUE [id number] 06:56:00 Test Item Value Reference Range Interpretation Comments MAGNESIUM (BEAKER) (test code = 1.8 mg/dL 1.6-2.6 627) [employer] Professor ID - SUE LCBC (HEMOGRAM ONLY)2020-05-16 06:35:00 [...] 0-0 (BEAKER) (test code = 413) POCT-GLUCOSE [id number] 21:25:00 Test Item Value Reference Range Interpretation Comments POC-GLUCOSE METER 253 mg/dL 70-110 H : TESTED A T [facility] 6720 (BEAKER) (test code = [place], 1538) 29868: [employer] Professor/Techni josephine ID = [id number] for ROSS GUTHRIE POCT-GLUCOSE [id number] 17:11:00 Test Item Value Reference Range Interpretation Comments POC-GLUCOSE METER 310 mg/dL 70-110 H : TESTED A T [facility] 6720 (BEAKER) (test code = [place], 1538) 50338: [employer] Professor/Techni josephine ID = [id number] for Lindsay Cid ECG 12 [id number] 16:15:17Interface, External Ris In - 05/15/2020 4:15 PM CSTVentricular Rate 78 BPMAtrial Rate 78 BPMP-R Interval 152 msQRS Duration 78 msQ-T Interval 376 msQTC Calculation(Bazett) 428 msP [place] 22 degreesR [place] 35 degreesT [place] 11 degreesNormal sinus rhythmLow voltage QRSAbnormal ECGWhen compared with ECG of 07-MAY-2020 17:02,Significant changes have occurredConfirmed by MD Guido Roberto ([id number]) on 05/15/2020 4:15:12 PM [facility] [id number] 11:51:00 Test Item Value Reference Range Interpretation [...] S NOT APPLICABLE FOR DIALYSIS PATIEN TS. [employer] Professor ID - PATRICIA [id number] 11:51:00 Test Item Value Reference Range Interpretation Comments MAGNESIUM (BEAKER) (test code = 1.7 mg/dL 1.6-2.6 627) P[employer] Professor ID - PATRICIA CCBC (HEMOGRAM ONLY)2020-05-15 11:26:00 [...] 0-0 (BEAKER) (test code = 413) POCT-GLUCOSE [id number] 07:40:00 Test Item Value Reference Range Interpretation Comments POC-GLUCOSE METER 223 mg/dL 70-110 H : TESTED A T [facility] 6720 (BEAKER) (test code = [facility], 1538) 66122: P[employer] Professor/Techni josephine ID = [id number] for Genet Cidiana POCT-GLUCOSE [id number] 22:08:00 Test Item Value Reference Range Interpretation Comments POC-GLUCOSE METER 148 mg/dL 70-110 H : TESTED A T [facility] 6720 (BEAKER) (test code = [facility], 1538) 89181: [employer] Professor/Techni josephine ID = [id number] for Debbie Flynn SARS-CoV2/RT-PCR (Asymptomatic ONLY)2020-05-14 16:01:00 Test Item Value Reference Range Interpretation Comments SARS-COV2/RT-PCR Negative Not Detected, (test code = Negative, See 83617-4) external report for linked test SARS-COV-2 [facility] PERFORMING LAB (test code = 19220-8) BARRON (test code = Negative result for [...] the Act. Testing was performed using the [employer] SARS-CoV-2 assay. Fact Sheet for Healthcare Providers:https://www.rosa short.bello/robyn/RT_SA SB-TqI-6_JGD_Ijto_Bxdjq_ 51-071849.pdf Fact Sheet for Healthcare Patients:https://www.padmini cabezas.bello/robyn/RT_SAR Z-UrH-0_Vzfvjup_Sgam_Rbu et_EN_51-053161Z1.pdf Performing Laboratory:[facility] [place] [address] [facility] HospitalPOCT-GLUCOSE [id number] 16:01:00 Test Item Value Reference Range Interpretation Comments POC-GLUCOSE METER 189 mg/dL 70-110 H : TESTED A T [facility] 6720 (DELFINA) (test code = [facility] [place] [facility], 1538) 00269: P[employer] Professor/Techni josephine ID = [id number] for Lindsay Cid SARS-COV2/RT-PCR ([facility])2020-05-14 16:01:00 Test Item Value Reference Range Interpretation Comments SARS-COV2/RT-PCR (test Negative Not Detected, Negative, code = 8361002) See external report for linked test SARS-COV-2 PERFORMING LAB [facility] (test code = 6361218) Negative result for this test determines that [...] the Bello SARS-CoV-2 assay.Fact Sheet for Healthcare Providers:https://www.[employer].bello/robyn/ WE_QPWY-HjD-0_MOA_Fgqv_Ttecl_61-087056.pdfFact Sheet for Healthcare Patients:https://www.[employer].PulseOn froilan/robyn/CQ_TWVG-NhY-1_Dlginxf_Gkfq_Xfqms_EM_89-881615D9.pdfPerforming Laboratory:[facility] [place] [address] RAD, CHEST, 1 VIEW, NON [id number] 15:49:00Reason for exam:->chest painShould this be performed at the bedside?->Yes [facility] 1950 Sex: MFINAL REPORT CLINICAL HISTORY: chest pain TECHNIQUE: 1 view of the chest. COMPARISON: 05/13/2020 IMPRESSION: There is no definitive evidence for pneumothorax. Bilateral lower lung opacities have decreased. A small left pleural effusion appears decreased. The cardiomediastinal silhouette is magnified by technique with sternotomy wires. Signed: Elaine Beckeport Verified Date/Time: 05/14/2020 15:49:04 Reading Location: [facility] Radiology Reading Room XR chest 1 view portable / [id number] 15:49:00 Interface, External Ris In - 05/14/2020 3:51 PM CSTFINAL REPORT CLINICAL HISTORY: chest pain TECHNIQUE: 1 view of the chest. COMPARISON: 05/13/2020 IMPRESSION: There is no definitive evidence for pneumothorax. Bilateral lower lung opacities have decreased. A small left pleuraleffusion appears decreased. The cardiomediastinal silhouette is magnified by technique with sternotomy wires. Signed: Elaine Beck MDReport Verified Date/Time: 05/14/2020 15:49:04 Reading Location: [facility] Radiology Reading Room [facility] (HEMOGRAM ONLY)2020-05-14 13:33:00 Test Item [...] 0-0 (BEAKER) (test code = 413) POCT-GLUCOSE [id number] 12:50:00 Test Item Value Reference Range Interpretation Comments POC-GLUCOSE METER 179 mg/dL 70-110 H : TESTED A T [facility] 6720 (BEAKER) (test code = [facility], 153) 19113: [employer] Professor/Techni josephine ID = [id number] for Palak, Lindsay BASIC METABOLIC [id number] 11:45:00 Test Item Value Reference Range Interpretation [...] S NOT APPLICABLE FOR DIALYSIS PATIEN TS. [employer] Professor ID - PAZIANGPOCT-GLUCOSE [id number] 08:00:00 Test Item Value Reference Range Interpretation Comments POC-GLUCOSE METER 211 mg/dL 70-110 H : TESTED A T [facility] 6720 (BEAKER) (test code = [facility], 153) 04677: P[employer] Professor/Techni josephine ID = [id number] for Palak, Lindsay POCT-GLUCOSE [id number] 20:13:00 Test Item Value Reference Range Interpretation Comments POC-GLUCOSE METER 181 mg/dL 70-110 H : TESTED A T [facility] 6720 (BEAKER) (test code = [facility], 153) 43194: [employer] Professor/Techni josephine ID = [id number] for Re yes, iry POCT-GLUCOSE [id number] 17:11:00 Test Item Value Reference Range Interpretation Comments POC-GLUCOSE METER 247 mg/dL 70-110 H : TESTED A T [facility] 6720 (BEAKER) (test code = [facility] [place] [facility], 1538) 84218: [employer] Professor/Techni josephine ID = [id number] for OR JOSE MANUEL VELASCO RAD, CHEST, 1 VIEW, NON [id number] 14:31:00Reason for exam:- >HypoxiaShould this be performed at the bedside?->Yes [facility] 1950 Sex: MFINAL REPORT CLINICAL HISTORY: Hypoxia TECHNIQUE: 1 view of the chest. COMPARISON: 05/12/2020 IMPRESSION: There is a trace left apical pneumothorax. Left greater than rightlower lung opacities are again seen along with a small left pleural effusion. The cardiomediastinal silhouette is magnified by technique with sternotomy wires. Signed: Elaine Beck Verified Date/Time: 05/13/2020 14:31:31 Reading Location: [facility] Radiology Reading Room POCT-GLUCOSE [id number] 12:44:00 Test Item Value Reference Range Interpretation Comments POC-GLUCOSE METER 350 mg/dL 70-110 H : TESTED A T [facility] 6720 (DELFINA) (test code = [place], 1538) 18945: P[employer] Professor/Techni josephine ID = [id number] for OR JOSE MANUEL VELASCO POCT-GLUCOSE [id number] 07:56:00 Test Item Value Reference Range Interpretation Comments POC-GLUCOSE METER 218 mg/dL 70-110 H : TESTED A T [facility] 6720 (BEAKER) (test code = [facility] [place] [facility], 1538) 83537: P[employer] Professor/Techni josephine ID = [id number] for OR JOSE MANUEL VELASCO POCT-GLUCOSE [id number] 21:04:00 Test Item Value Reference Range Interpretation Comments POC-GLUCOSE METER 262 mg/dL 70-110 H : TESTED A T [facility] 6720 (BEAKER) (test code = [facility] [place] [facility], 1538) 99032: P[employer] Professor/Techni josephine ID = [id number] for Re yes, Sairy Creatinine, random [id number] 17:27:00 Test Item Value Reference Range Interpretation Comments Creatinine, Ur 119.5 mg/dL (test code = 2161-8) BARRON (test code = Reference Range: No BARRON) NormalsOperator ID - BS [facility] [id number] 17:27:00 Test Item Value Reference Range Interpretation Comments Sodium Urine (test 29 meq/L code = 2955-3) BARRON (test code = Reference Range: No BARRON) NormalsOperator ID - BS [facility] HospitalCREATININE, RANDOM [id number] 17:27:00 Test Item Value Reference Range Interpretation Comments CREATININE URINE (BEAKER) (test 119.5 mg/dL code = 375) Reference Range: No NormalsOperator ID - BSSODIUM, RANDOM [id number] 17:27:00 Test Item Value Reference Range Interpretation Comments SODIUM URINE (BEAKER) (test code = 29 meq/L 243) Reference Range: No NormalsOperator ID - BSUrinalysis w/Microscopic + Reflex to [id number] 17:22:00 Test Item Value Reference Range Interpretation Comments Color, UA (test code Yellow = 5778-6) Clarity, UA (test Hazy code = 5767-9) Specific [place], UA 1.029 1.001-1.035 (test code = 5811-5) pH, UA (test code = 6.0 5.0-8.0 5803-2) Protein, UA (test 30 mg/dL Negative A code = 92567-0) Glucose, UA (test >1000 mg/dL Negative A code = 365) Ketones, UA (test 10 mg/dL Negative A code = 2514-8) Bilirubin, UA (test Negative Negative code = 64723-9) Blood, UA (test code Negative Negative = 91799-8) Nitrite, UA (test Negative Negative code = 5802-4) Leukocytes, UA (test Negative Negative code = 5799-2) Urobilinogen, UA 0.2 mg/dL 0.2-1 (test code = 22827-0) RBC, UA (test code = 31 See_Comment [Autom ated 48534-9) message] The system which generated this result [...] Rare 8247-9) Yeast (test code = Many 12249-7) Specimen Source (test code = 2795) BARRON (test code = BARRON) [employer] Professor ID - [auto]Practical Ministries Professor ID - tech Lab Interpretation Abnormal (test code = 00192-8) [facility] HospitalURINALYSIS W/ REFLEX URINE [id number] 17:22:00 Test Item Value Reference Range Interpretation [...] 1585) Many SOURCE(BEAKER) (test code = 2795) [employer] Professor ID - [auto][employer] Professor ID - techOsmolality, [id number] 17:20:00 Test Item Value Reference Range Interpretation Comments Osmolality, Ur (test code 744 See_Comment [ Automated message] = 2695-5) The system [employer] generated this result transmitted ref erence range: 50-1,200 mOsm/kg mOsm/kg . The reference range was not used to int erpret this result as normal/abnormal . Lab Interpretation (test Normal code = 12022-5) [facility] HospitalOSMOLALITY, [id number] 17:20:00 Test Item Value Reference Range Interpretation Comments OSMOLALITY URINE (BEAKER) (test 744 mOsm/kg 50-1,200 mOsm/kg code = 614) POCT-GLUCOSE [id number] 17:14:00 Test Item Value Reference Range Interpretation Comments POC-GLUCOSE METER 272 mg/dL 70-110 H : TESTED A T [facility] 6720 (BEAKER) (test code = [facility], 1538) 52086: [employer] Professor/Techni josephine ID = [id number] for OR PHEY, JOSE MANUEL POCT-GLUCOSE [id number] 12:37:00 Test Item Value Reference Range Interpretation Comments POC-GLUCOSE METER 341 mg/dL 70-110 H : TESTED A T [facility] 6720 (BEAKER) (test code = [facility], 1538) 24180: [employer] Professor/Techni josephine ID = [id number] for OR PHEY, JOSE MANUEL SARS-COV2/RT-PCR ([facility])2020-05-12 11:22:00 Test Item Value Reference Range Interpretation Comments SARS-COV2/RT-PCR (test Negative Not Detected, Negative, code = 4199308) See external report for linked test SARS-COV-2 [facility] (test code = 3269767) Negative result for this test determines that [...] 564(g) of the Act.Fact Sheet for Healthcare Providers:https://www.trustedsafe.PackLate.com/sites/default/files/product/documents/Fact_Shee z_UV_Ybzcunweo_Vhoa_JJHE-AjJ-5.pdfFact Sheet for Healthcare Patients:https://www.trustedsafe.com/sites/default/files/product/ documents/Hdax_Guwks_Apfvciso_Lowz_SMBO-NnB-9.pdfPerforming Laboratory:[facility], [place] [address]LMS, CHEST, 1 VIEW, NON [id number] 10:47:00Reason for exam:->s/p ACBShould this be performed at the bedside?->Yes [facility] 1950 Sex: MFINAL REPORT CLINICAL HISTORY: s/p ACB TECHNIQUE: 1 view of the chest. COMPARISON: 05/11/2020 IMPRESSION: Left lung base pleural parenchymal opacity is unchanged. There are mildly increased lung markings elsewhere. The cardiomediastinal silhouette is magnified by technique with sternotomy wires. Signed: Elaine Beck MDReport Verified Date/Time: 05/12/2020 10:47:12 Reading Location: [facility] Radiology Reading Room Electronically signed by: ELAINE [...] (test code = 2.8 g/dL 3.5-5 L 35250-6) Alkaline Phosphatase 91 U/L 40-150 (test code = 6768-6) Total Bilirubin (test 0.7 mg/dL 0.2-1.2 code = 1975-2) Sodium (test code = 129 meq/L 136-145 L 2951-2) Potassium (test code 4.3 meq/L 3.5-5.1 = 2823-3) Chloride (test code = 93 meq/L 98-107 L 5-0) CO2 (test code = 26 meq/L 22-29 8-9) BUN (test code = 18 mg/dL 7- 3094-0) Creatinine (test code 1.13 mg/dL 0.57-1.25 = 2160-0) Glucose (test code = 322 mg/dL 70-105 H 2345-7) Calcium (test code = 8.5 mg/dL 8.4-10.2 97727-2) AST (test code = 13 U/L 5-34 1920-8) ALT (test code = 14 U/L 6-55 1742-6) EGFR (test code = 64 mL/min/1.73 [place] [address]-7) NOT ACCURATE CREATININE CLEARANCE IN PREDICTING GLOMERULAR FILTRATION RATE . ESTIMATED GFR I S NOT APPLICABLE FOR DIALYSIS PATIEN TS. MART (test code = BARRON) [employer] Professor ID - PATRICIA C Lab Interpretation Abnormal (test code = 34746-0) [facility] HospitalCOMPREHENSIVE METABOLIC [id number] 10:24:00 Test Item Value Reference Range Interpretation [...] S NOT APPLICABLE FOR DIALYSIS PATIEN TS. [employer] Professor ID - PATRICIA [id number] 10:13:00 Test Item Value Reference Range Interpretation Comments Cortisol, Total (test code 16.9 ug/dL 3.7-19.4 = 2755) BARRON (test code = BARRON) [employer] Professor ID - PATRICIA C Lab Interpretation (test Normal code = 54053-8) [facility] HospitalCORTISOL2020-11-18 10:13:00 Test Item Value Reference Range Interpretation Comments CORTISOL, TOTAL (BEAKER) (test 16.9 ug/dL 3.7-19.4 code = 2755) [employer] Professor ID - PATRICIA CCBC (HEMOGRAM ONLY)2020-05-12 09:43:00 [...] 0-0 (BEAKER) (test code = 413) POCT-GLUCOSE [id number] 07:33:00 Test Item Value Reference Range Interpretation Comments POC-GLUCOSE METER 282 mg/dL 70-110 H : TESTED A T [facility] 6720 (BEAKER) (test code = [facility], 153) 15074: [employer] Professor/Techni josephine ID = [id number] for OR JOSE MANUEL VELASCO Calcium, [id number] 05:09:00 Test Item Value Reference Range Interpretation Comments Calcium, Ion (test code = 1.09 mmol/L 1.12-1.27 L 1993-) pH, Blood (test code = 7.41 38239-4) BARRON (test code = BARRON) Check serum Ionized Calcium level after 4 hours after IV Calcium replacement. Lab Interpretation (test Abnormal code = 07569-3) [facility] HospitalCALCIUM, [id number] 05:09:00 Test Item Value Reference Range Interpretation Comments CALCIUM IONIZED (BEAKER) (test 1.09 mmol/L 1.12-1.27 L code = 698) PH, BLOOD (BEAKER) (test code = 7.41 1810) Check serum Ionized Calcium level after 4 hours after IV Calcium replacement. POCT-GLUCOSE [id number] 21:31:00 Test Item Value Reference Range Interpretation Comments POC-GLUCOSE METER 330 mg/dL 70-110 H : TESTED A T [facility] 6720 (BEAKER) (test code = [facility], 153) 41868: P[employer] Professor/Techni josephine ID = [id number] for RO CARLOTA DEEO POCT-GLUCOSE [id number] 17:53:00 Test Item Value Reference Range Interpretation Comments POC-GLUCOSE METER 279 mg/dL 70-110 H : TESTED A T [facility] 6720 (BEAKER) (test code = [facility], 153) 98668: [employer] Professor/Techni josephine ID = [id number] for Lindsay Cid RAD, CHEST, 1 VIEW, NON [id number] 13:06:00Reason for exam:->post-chest tube removalShould this be performed at the bedside?->Yes [facility] : 1950 Sex: MFINAL [...] sternotomy wires. Signed: Elaine Beckeport Verified Date/Time: 05/11/2020 13:06:14 Reading Location: [facility] Radiology Reading Room 01:06 PMPOCT-GLUCOSE METER 2020-05-11 12:37:00 Test Item Value Reference Range Interpretation Comments POC-GLUCOSE METER 291 mg/dL 70-110 H : TESTED A T [facility] 6720 (BEAKER) (test code = [facility], 1538) 82983: [employer] Professor/Techni josephine ID = [id number] for Mindy Winkler mra POCT-GLUCOSE [id number] 12:37:00 Test Item Value Reference Range Interpretation Comments POC-GLUCOSE METER 257 mg/dL 70-110 H : TESTED A T [facility] 6720 (BEAKER) (test code = [facility], 1538) 20718: [employer] Professor/Techni josephine ID = [id number] for GABE MILLS BASIC METABOLIC [id number] 06:27:00 Test Item Value Reference Range Interpretation [...] S NOT APPLICABLE FOR DIALYSIS PATIEN TS. [employer] Professor ID - [id number] 06:22:00 Test Item Value Reference Range Interpretation Comments Phosphorus (test code = 2.4 mg/dL 2.3-4.7 2777-1) BARRON (test code = BARRON) [employer] Professor ID - EDASI Lab Interpretation (test Normal code = 71496-8) [facility] HospitalMAGNESIUM2020-11-17 06:22:00 Test Item Value Reference Range Interpretation Comments MAGNESIUM (BEAKER) (test code = 2.2 mg/dL 1.6-2.6 627) [employer] Professor ID - [id number] 06:22:00 Test Item Value Reference Range Interpretation Comments PHOSPHORUS (BEAKER) (test code = 2.4 mg/dL 2.3-4.7 604) [employer] Professor ID - EDASICALCIUM, [id number] 05:51:00 Test Item Value Reference Range Interpretation [...] CELLS (BEAKER) (test code = 413) Prepare [id number] 23:54:00 Test Item Value Reference Range Interpretation Comments CROSSMATCH (test code = COMPATIBLE 2264) Unit ABO (test code = A Pos 8806333) UNIT NUMBER (test code = [id number] 934-0) Status (test code = RETURNED FROM ISSUE 1031399) Blood Bank Product (test RED BLOOD CELLS code = 2263) PRODUCT CODE (test code = G5455S08 933-2) [facility] HospitalPrepare [id number] 23:54:00 Test Item Value Reference Range Interpretation Comments Unit ABO (test code = 1361574) A Pos UNIT NUMBER (test code = [id number] 934-0) Status (test code = 2050111) [place]_TIMEINCHART Blood Bank Product (test code FFP = 2263) PRODUCT CODE (test code = H9435Z46 933-2) [facility] HospitalPOCT-GLUCOSE [id number] 21:34:00 Test Item Value Reference Range Interpretation Comments POC-GLUCOSE METER 190 mg/dL 70-110 H : TESTED A T [facility] 6720 (BEAKER) (test code = [facility], 1538) [address]: [employer] Professor/Techni josephine ID = [id number] for ROSS GUTHRIE POCT-GLUCOSE [id number] 16:44:00 Test Item Value Reference Range Interpretation Comments POC-GLUCOSE METER 129 mg/dL 70-110 H : TESTED A T [facility] 6720 (BEAKER) (test code = [facility], 1538) 854[address]: [employer] Professor/Techni josephine ID = [id number] for Sara Herring CALCIUM, [id number] 14:52:00 Test Item Value Reference Range Interpretation Comments CALCIUM IONIZED (BEAKER) (test 1.11 mmol/L 1.12-1.27 L code = 698) PH, BLOOD (BEAKER) (test code = 7.35 1810) POCT-GLUCOSE [id number] 12:03:00 Test Item Value Reference Range Interpretation Comments POC-GLUCOSE METER 205 mg/dL 70-110 H : TESTED A T [facility] 6720 (BEAKER) (test code = [facility], 153) 77267: [employer] Professor/Techni josephine ID = [id number] for Sara Herring Platelet Aggregation: Function [id number] 10:23:00 Test Item Value Reference Range Interpretation Comments Pathologist: (test Ted Lynch MD code = 2622) (electronic signature) Platelets (test code 275 See_Comment [Autom ated = 2676) message] The system which generated this result transmitted reference range : 150 - 430 K/CU MM. The referen ce range was not used to interpr et this result as normal/abnormal . ADP (test code = 68 % 62-100 11899-7) Platelet Rich Plasma 297 See_Comment [Autom ated [...] be falsely low with platelet counts<75,000/cu mm. [facility]REGATION: FUNCTION [id number] 10:23:00 Test Item Value Reference Range Interpretation Comments [id number] Tde Lynch MD (BEAKER) (test code = (electronic [...] be falsely low with platelet counts<75,000/cu mm.Platelet [id number] 09:01:00 Test Item Value Reference Range Interpretation Comments Platelets (test code 160 See_Comment [Autom ated = 777-3) message] The system which generated this result transmit leslie reference range : 150 - 450 K/CU MM. The reference range was not u sed to interpret th is result as normal/abnormal . BARRON (test code = BARRON) [employer] Professor ID - [id number] ID - [id number] ID - [id number] Lab Interpretation Normal (test code = 42750-0) [facility] [id number] 09:01:00 Test Item Value Reference Range Interpretation Comments PLATELET COUNT (BEAKER) (test 160 K/CU MM 150-450 code = 756) [employer] Professor ID - 6000Operator ID - 6000Operator ID - [id number] 08:44:00 Test Item Value Reference Range Interpretation Comments PTT (test code = 75.3 See_Comment H [Automated message] 83802-6) The system [employer] generated this result transmitted ref erence range: 22.5 - 3 6.0 seconds. The reference range was not used to int erpret this result as normal/abnormal . Lab Interpretation (test Abnormal code = 16613-0) [facility]APTT[facility] 08:44:00 Test Item Value Reference Range Interpretation Comments PARTIAL THROMBOPLASTIN TIME 75.3 seconds 22.5-36.0 H (BEAKER) (test code = 760) [id number] 08:42:00 Test Item Value Reference Range Interpretation Comments Fibrinogen (test code = 3255-7) 427 mg/dl 225-434 Lab Interpretation (test code = Normal 57255-6) [facility] HospitalFIB[facility]INOGEN2020-11-16 08:42:00 Test Item Value Reference Range Interpretation Comments FIBRINOGEN LEVEL (BEAKER) (test 427 mg/dl 225-434 code = 658) Prothromin time/[id number] 08:41:00 Test Item Value Reference Interpretation Comments [...] valves. Lab Interpretation Abnormal (test code = 14859-9) [facility] HospitalPROTHROMBIN TIME/[id number] 08:41:00 Test Item Value Reference Range Interpretation [...] is2.5-3.5 for patients wiht mechanical heart valves.POCT-GLUCOSE [id number] 08:19:00 Test Item Value Reference Range Interpretation Comments POC-GLUCOSE METER 183 mg/dL 70-110 H : TESTED A T [facility] 6720 (BEAKER) (test code = [facility] [place], 1538) [address]: [employer] Professor/Techni josephine ID = [id number] for Ro mikaelaon, Sara Type and screen, [id number] 04:51:00 Test Item Value Reference Range Interpretation Comments ABO/RH AUTOMATED (BEAKER) (test A POSITIVE code = 2260) Ab Scrn (test code = 890-4) NEGATIVE [facility] [id number] 04:49:00 Test Item Value Reference Range Interpretation [...] S NOT APPLICABLE FOR DIALYSIS PATIEN TS. [employer] Professor ID - [id number] 04:44:00 Test Item Value Reference Range Interpretation Comments MAGNESIUM (BEAKER) (test code = 2.3 mg/dL 1.6-2.6 627) [employer] Professor ID - [id number] 04:44:00 Test Item Value Reference Range Interpretation Comments PHOSPHORUS (BEAKER) (test code = 2.8 mg/dL 2.3-4.7 604) [employer] Professor ID - EDASICALCIUM, [id number] 04:25:00 Test Item Value Reference Range Interpretation Comments CALCIUM IONIZED (BEAKER) (test 1.02 mmol/L 1.12-1.27 L code = 698) PH, BLOOD (BEAKER) (test code = 7.41 1810) Check serum Ionized Calcium level after 4 hours after IV Calcium replacement.Check serum Ionized Calcium level after 4 hours after IV Calcium replacement.CBC with platelet count + automated [id number] 04:23:00 Test Item Value Reference Range Interpretation Comments WBC (test code = 6690-2) 11.1 See_Comment H [A utomated message] The system [employer] generated this result transmitted ref erence range: 3.5 - 10 .5 K/L. The refe rence range was not u sed to interpret this result as normal/abnor mal. RBC (test code = 789-8) 3.24 See_Comment L [Au tomated message] The system [employer] generated this result transmitted ref erence range: 4.63 - 6 .08 M/L. The refe rence range was not u sed to interpret this result as normal/abnor mal. MCHC (test code = 786-4) 35.1 See_Comment L [A utomated message] The system [employer] generated this result transmitted ref erence range: [...] L [Aut omated message] 777-3) The system [employer] generated this result transmitted ref erence range: 150 - 45 0 K/CU MM. The referen ce range was not u sed to interpret this result as normal/abnor mal. MPV (test code = 9.5 fL 9.4-12.4 26742-4) nRBC (test code = 413) 0 See_Comment [Aut omated message] The system [employer] generated this result transmitted ref erence range: [...] H [Aut omated message] 670) The system [employer] generated this result transmitted ref erence range: 1.78 - 5 .38 K/L. The refe rence range was not u sed to interpret this result as normal/abnor mal. # Lymphs (test code = 0.72 See_Comment L [Auto mated message] 414) The system [employer] generated this result transmitted ref erence range: 1.32 - 3 .57 K/L. The refe rence range was not u sed to interpret this result as normal/abnor mal. # Monos (test code = 0.73 See_Comment [Autom ated message] 415) The system [employer] generated this result transmitted ref erence range: 0.30 - 0 .82 K/L. The refe rence range was not u sed to interpret this result as normal/abnor mal. # Eos (test code = 416) 0.03 See_Comment L [Au tomated message] The system [employer] generated this result transmitted ref erence range: 0.04 - 0 .54 K/L. The refe rence range was not u sed to interpret this result as normal/abnor mal. # Baso (test code = 417) 0.04 See_Comment [A utomated message] The system [employer] generated this result transmitted ref erence range: 0.01 - 0 .08 K/L. The refe rence range was not u sed to interpret this result as normal/abnor mal. Immature 1 % 0-1 Granulocytes-Relative (test code = 2801) Lab Interpretation (test Abnormal code = 08969-5) [facility] W/PLT COUNT & AUTO [id number] 04:23:00 Test Item Value Reference Range Interpretation [...] (BEAKER) (test code = 2801) Blood gas, [id number] 04:22:00 Test Item Value Reference Range Interpretation Comments pH, Arterial (test code 7.41 7.35-7.45 = 2744-1) pCO2, Arterial (test 39 See_Comment [Autom ated message] code = 2019-8) The system [facility] generated this result transmit leslie reference range : 35 - 45 mm Hg. The reference range was not used to interpret this result as normal/abnormal . pO2, Arterial (test 183 See_Comment H [Automa leslie message] code = 2703-7) The system [facility] generated this result transmit leslie reference range [...] 36 Lab Interpretation Abnormal (test code = 61759-2) [facility] HospitalBLOOD GAS, [id number] 04:22:00 Test Item Value Reference Range Interpretation [...] 1819) 36.0 RAD, CHEST, 1 VIEW, NON [id number] 01:32:00Reason for exam:->s/p ACBShould this be performed at the bedside?->Yes [facility] : 1950 Sex: MFINAL [...] Ja Hickey MDReport Verified Date/Time: 05/10/2020 01:32:03 [id number] 21:38:00 Test Item Value Reference Range Interpretation Comments MAGNESIUM (BEAKER) 2.5 mg/dL 1.6-2.6 Specimen slightly (test code = 627) hemolyzed [employer] Professor ID - [id number] 21:38:00 Test Item Value Reference Range Interpretation Comments PHOSPHORUS (BEAKER) 3.1 mg/dL 2.3-4.7 Specimen slightly (test code = 604) hemolyzed [employer] Professor ID - EDASIBASIC METABOLIC [id number] 21:38:00 Test Item Value Reference Range Interpretation [...] S NOT APPLICABLE FOR DIALYSIS PATIEN TS. [employer] Professor ID - EDASIBLOOD GAS, [id number] 21:20:00 Test Item Value Reference Range Interpretation Comments PH ARTERIAL (BEAKER) 7.43 7.35-7.45 (test code = 383) PCO2 ARTERIAL (BEAKER) 43 mm Hg 35-45 (test code = 384) PO2 ARTERIAL (BEAKER) 143 mm Hg 80-90 H This i s a corrected (test code = 385) result. Pr evious result was 144 mm Hg on 05/09/2020 a t 2117 RESOLUTION EXPERT O2 SATURATION ARTERIAL 98.9 % 96.0-97.0 H (BEAKER) (test code = 386) HCO3 ARTERIAL (BEAKER) 28 mmol/L 21-29 (test code = 388) BASE EXCESS ARTERIAL 3.1 mmol/L -2.0-3.0 H (BEAKER) (test code = 387) PATIENT TEMPERATURE 36.8 This is a corrected (BEAKER) (test code = result . Previous 1817) result was 37.0 on 05/09/2020 at 2 117 RESOLUTION EXPERT FIO2 (BEAKER) (test 36.0 This is a corrected code = 1819) result. Previou s result was 100. 0 on 05/09/2020 at 2 117 RESOLUTION EXPERT HGB/HCT (H&H)-Stat [id number] 21:17:00 Test Item Value Reference Range Interpretation Comments Hemoglobin (test code = 11.5 See_Comment L [Au tomated message] 786-4) The system [employer] generated this result transmitted ref erence range: 13.0 - 1 6.8 GM/DL. The refe rence range was not u sed to interpret this result as normal/abnor mal. Hematocrit (test code = 34.0 % 40-50 L 4544-3) Lab Interpretation (test Abnormal code = 80462-4) [facility] (H&H) - STAT [id number] 21:17:00 Test Item Value Reference Range Interpretation Comments HEMOGLOBIN (BEAKER) (test code = 11.5 GM/DL 13.0-16.8 L 410) HEMATOCRIT (BEAKER) (test code = 34.0 % 40.0-50.0 L 411) CALCIUM, [id number] 21:17:00 Test Item Value Reference Range Interpretation Comments CALCIUM IONIZED (BEAKER) (test 1.01 mmol/L 1.12-1.27 L code = 698) PH, BLOOD (BEAKER) (test code = 7.43 1810) Glucose-Stat [id number] 21:16:00 Test Item Value Reference Range Interpretation Comments Glucose (test code = 2345-7) 108 mg/dL 70-110 Lab Interpretation (test code = Normal 75303-6) [facility] [id number] 21:16:00 Test Item Value Reference Range Interpretation Comments Sodium (test code = 2951-2) 135 meq/L 136-145 L Lab Interpretation (test code = Abnormal 89561-6) [facility] HospitalPotassium-Stat [id number] 21:16:00 Test Item Value Reference Range Interpretation Comments Potassium (test code = 2823-3) 3.8 meq/L 3.6-5.5 Lab Interpretation (test code = Normal 77373-9) [facility] HospitalGLUCOSE-STAT [id number] 21:16:00 Test Item Value Reference Range Interpretation Comments GLUCOSE RANDOM (BEAKER) (test code 108 mg/dL 70-110 = 652) SODIUM NA-STAT [id number] 21:16:00 Test Item Value Reference Range Interpretation Comments SODIUM (BEAKER) (test code = 381) 135 meq/L 136-145 L POTASSIUM-STAT [id number] 21:16:00 Test Item Value Reference Range Interpretation Comments POTASSIUM (BEAKER) (test code = 3.8 meq/L 3.6-5.5 379) POCT-GLUCOSE [id number] 20:20:00 Test Item Value Reference Range Interpretation Comments POC-GLUCOSE METER 88 mg/dL 70-110 : TESTED A T [facility] 6720 (BEAKER) (test code = [facility], 153) [address]24: [employer] Professor/Techni josephine ID = [id number] for TORSTEN JUÁREZ BLOOD GAS, [id number] 19:23:00 Test Item Value Reference Range Interpretation [...] (BEAKER) (test code = 1819) 40.0 POCT-GLUCOSE [id number] 18:59:00 Test Item Value Reference Range Interpretation Comments POC-GLUCOSE METER 134 mg/dL 70-110 H : Notified RN/MD: (BEAKER) (test code = TESTED AT [facility] 6720 1538) [facility], [address]: [employer] Professor/Techni josephine ID = [id number] for STUART ACEVES POCT-GLUCOSE [id number] 16:41:00 Test Item Value Reference Range Interpretation Comments POC-GLUCOSE METER 211 mg/dL 70-110 H : TESTED A T [facility] 6720 (BEAKER) (test code = [facility], 153) [address]: [employer] Professor/Techni josephine ID = [id number] for STUART ACEVES BASIC METABOLIC [id number] 16:12:00 Test Item Value Reference Range Interpretation [...] S NOT APPLICABLE FOR DIALYSIS PATIEN TS. [employer] Professor ID - EDASIRAD, CHEST, 1 VIEW, NON [id number] 16:11:00while patient is intubated or has chest tubes.Reason for exam:->Status post CV SurgeryShould thisbe performed at the bedside?->Yes [facility] : 1950 Sex: MFINAL [...] My Patrick Verified Date/Time:05/09/2020 16:11:13 Reading Location: [address] Body Reading Room [id number] 16:02:00 Test Item Value Reference Range Interpretation Comments MAGNESIUM (BEAKER) (test code = 1.7 mg/dL 1.6-2.6 627) [employer] Professor ID - [id number] 16:02:00 Test Item Value Reference Range Interpretation Comments PHOSPHORUS (BEAKER) (test code = 1.7 mg/dL 2.3-4.7 L 604) [employer] Professor ID - EDASILactic Acid, [id number] 15:57:00 Test Item Value Reference Range Interpretation Comments Lactate, Art (test 0.7 mmol/L 0.5-2.2 Specimen code = 2874) slightly hemolyzed BARRON (test code = BARRON) [employer] Professor ID - EDASI Lab Interpretation Normal (test code = 11649-5) [facility]APTT[facility] 15:57:00 Test Item Value Reference Range Interpretation Comments PARTIAL THROMBOPLASTIN TIME 67.0 seconds 22.5-36.0 H (BEAKER) (test code = 760) LACTIC ACID, [id number] 15:57:00 Test Item Value Reference Range Interpretation Comments LACTATE BLOOD 0.7 mmol/L 0.5-2.2 Specimen sligh tly ARTERIAL (2) (BEAKER) hemoly zed (test code = 2874) [employer] Professor ID - EDASIPROTHROMBIN TIME/[id number] 15:56:00 Test Item Value Reference Range Interpretation [...] mechanical heart valves.CBC W/PLT COUNT & AUTO [id number] 15:42:00 Test Item Value Reference Range Interpretation [...] (BEAKER) (test code = 2801) BLOOD GAS, [id number] 15:38:00 Test Item Value Reference Range Interpretation [...] (BEAKER) (test code = 1819) 50.0 CALCIUM, [id number] 15:38:00 Test Item Value Reference Range Interpretation Comments CALCIUM IONIZED (BEAKER) (test 1.04 mmol/L 1.12-1.27 L code = 698) PH, BLOOD (BEAKER) (test code = 7.59 1810) Oxygen saturation, [id number] 15:37:00 Test Item Value Reference Range Interpretation Comments O2 Saturation (Measured) (test code = 64.4 % 67087-5) [facility] HospitalOXYGEN SATURATION, [id number] 15:37:00 Test Item Value Reference Range Interpretation Comments O2 SATURATION (MEASURED) (BEAKER) 64.4 % (test code = 1455) CBC W/PLT COUNT & AUTO [id number] 15:33:00 Test Item Value Reference Range Interpretation [...] 0-1 PERCENT (BEAKER) (test code = 2801) [id number] 14:50:00 Test Item Value Reference Range Interpretation Comments MAGNESIUM (BEAKER) (test code = 1.9 mg/dL 1.6-2.6 627) [employer] Professor ID - [id number] 14:50:00 Test Item Value Reference Range Interpretation Comments PHOSPHORUS (BEAKER) (test code = 2.4 mg/dL 2.3-4.7 604) [employer] Professor ID - EDASIPOC ACTIVATED CLOTTING [id number] 14:42:00 Test Item Value Reference Range Interpretation Comments Activated Clotting Time 125 sec : 74 -137 seconds, (test code = 441) Baseline: TESTED AT [address], [address]: [employer] Professor/Techni josephine ID = [id number] for EDWAR SANDOVAL N [facility] HospitalPOCT-[id number] 14:42:00 Test Item Value Reference Range Interpretation Comments ACTIVATED CLOTTING TIME 125 sec : 74 -137 seconds, (BEAKER) (test code = Baseli ne: TESTED AT 441) [address], [address]: [employer] Professor/Techni josephine ID = [id number] for LORI, EDWAR N [id number] 14:42:00 Test Item Value Reference Range Interpretation Comments ACTIVATED CLOTTING TIME 466 sec : 74 -137 seconds, (BEAKER) (test code = Baseli ne: TESTED AT 441) [address], [address]: [employer] Professor/Techni josephine ID = [id number] for LORI, EDWAR N [id number] 14:42:00 Test Item Value Reference Range Interpretation Comments ACTIVATED CLOTTING TIME 593 sec : 74 -137 seconds, (BEAKER) (test code = Baseli ne: TESTED AT 441) [address], [address]: [employer] Professor/Techni josephine ID = [id number] for LORI, EDWAR N [id number] 14:42:00 Test Item Value Reference Range Interpretation Comments ACTIVATED CLOTTING TIME 577 sec : 74 -137 seconds, (BEAKER) (test code = Baseli ne: TESTED AT 441) [address], [address]: [employer] Professor/Techni josephine ID = [id number] for EDWAR SANDOVAL [id number] 14:41:00 Test Item Value Reference Range Interpretation Comments ACTIVATED CLOTTING TIME 538 sec : 74 -137 seconds, (BEAKER) (test code = Ember ne: TESTED AT 441) [facility] 6720 [facility] [place], [address]: [employer] Professor/Techni josephine ID = [id number] for EDWAR SANDOVAL [id number] 14:02:00 Test Item Value Reference Interpretation Comments Range Protime (test code = 19.8 See_Comment H [Autom ated 5902-2) message] The system which generated this result transmitted reference range : 11.9 - 14.2 seconds. The reference range was not used to interpret this result as normal/abnormal . INR (test code = 1.73 See_Comment [Automated 6471-6) message] The system which generated this result transmitted reference range : <=5.90. The reference range was not used to interpret this result as normal/abnormal . PTT (test code = 35.8 See_Comment [Automated 64507-5) message] The system which generated this result [...] valves. Lab Interpretation Abnormal (test code = 07119-7) [facility] HospitalFIBRINOGEN2020-11-15 14:02:00 Test Item Value Reference Range Interpretation Comments FIBRINOGEN LEVEL (BEAKER) (test 317 mg/dl 225-434 code = 658) [id number] 14:02:00 Test Item Value Reference Range Interpretation [...] is2.5-3.5 for patients wiht mechanical heart valves.PLATELET [id number] 13:59:00 Test Item Value Reference Range Interpretation Comments PLATELET COUNT (BEAKER) (test code 94 K/CU MM 150-450 L = 756) [employer] Professor ID - [id number] GAS, [id number] 13:47:00 Test Item Value Reference Range Interpretation [...] (test code = 1819) 100.0 SODIUM NA-STAT [id number] 13:47:00 Test Item Value Reference Range Interpretation Comments SODIUM (BEAKER) (test code = 381) 131 meq/L 136-145 L GLUCOSE-STAT [id number] 13:47:00 Test Item Value Reference Range Interpretation Comments GLUCOSE RANDOM (BEAKER) (test code 258 mg/dL 70-110 H = 652) HGB/HCT (H&H) - STAT [id number] 13:47:00 Test Item Value Reference Range Interpretation Comments HEMOGLOBIN (BEAKER) (test code = 8.8 GM/DL 13.0-16.8 L 410) HEMATOCRIT (BEAKER) (test code = 26.0 % 40.0-50.0 L 411) POTASSIUM-STAT [id number] 13:46:00 Test Item Value Reference Range Interpretation Comments POTASSIUM (BEAKER) (test code = 4.3 meq/L 3.6-5.5 379) HGB/HCT (H&H) - STAT [id number] 13:17:00 Test Item Value Reference Range Interpretation Comments HEMOGLOBIN (BEAKER) (test code = 9.1 GM/DL 13.0-16.8 L 410) HEMATOCRIT (BEAKER) (test code = 27.0 % 40.0-50.0 L 411) POTASSIUM-STAT [id number] 13:17:00 Test Item Value Reference Range Interpretation Comments POTASSIUM (BEAKER) (test code = 4.7 meq/L 3.6-5.5 379) BLOOD GAS, [id number] 13:17:00 Test Item Value Reference Range Interpretation [...] (test code = 1819) 60.0 SODIUM NA-STAT [id number] 13:17:00 Test Item Value Reference Range Interpretation Comments SODIUM (BEAKER) (test code = 381) 132 meq/L 136-145 L GLUCOSE-STAT [id number] 13:17:00 Test Item Value Reference Range Interpretation Comments GLUCOSE RANDOM (BEAKER) (test code 266 mg/dL 70-110 H = 652) GLUCOSE-STAT [id number] 12:55:00 Test Item Value Reference Range Interpretation Comments GLUCOSE RANDOM (BEAKER) (test code 266 mg/dL 70-110 H = 652) SODIUM NA-STAT [id number] 12:55:00 Test Item Value Reference Range Interpretation Comments SODIUM (BEAKER) (test code = 381) 127 meq/L 136-145 L HGB/HCT (H&H) - STAT [id number] 12:55:00 Test Item Value Reference Range Interpretation Comments HEMOGLOBIN (BEAKER) (test code = 9.2 GM/DL 13.0-16.8 L 410) HEMATOCRIT (BEAKER) (test code = 27.0 % 40.0-50.0 L 411) BLOOD GAS, [id number] 12:55:00 Test Item Value Reference Range Interpretation [...] (BEAKER) (test code = 1819) 50.0 POTASSIUM-STAT [id number] 12:54:00 Test Item Value Reference Range Interpretation Comments POTASSIUM (BEAKER) (test code = 5.2 meq/L 3.6-5.5 379) Blood gas, [id number] 12:14:00 Test Item Value Reference Range Interpretation [...] code = 48 See_Comment H [Auto mated 4825-2) message] The sy stem which generated this result transmitted reference range : 25 - 40 mm Hg. The reference range was not used to interpret this result as normal/abnormal . O2 Sat, Blaze (test code 88.9 % 40-70 H = 2711-0) HCO3, Blaze (test code = 24 mmol/L 21-29 62106-2) Base Excess, Blaze (test -2.6 mmol/L -2-3 L code = 1927-3) Patient Temperature 32.9 (test code = 8310-5) FIO2 (test code = 1819) 60 Lab Interpretation Abnormal (test code = 55383-5) [facility] HospitalBL[facility], [id number] 12:14:00 Test Item Value Reference Range Interpretation [...] (test code = 1819) 60.0 BLOOD GAS, [id number] 12:14:00 Test Item Value Reference Range Interpretation [...] (test code = 1819) 60.0 SODIUM NA-STAT [id number] 12:14:00 Test Item Value Reference Range Interpretation Comments SODIUM (BEAKER) (test code = 381) 131 meq/L 136-145 L GLUCOSE-STAT [id number] 12:14:00 Test Item Value Reference Range Interpretation Comments GLUCOSE RANDOM (BEAKER) (test code 257 mg/dL 70-110 H = 652) HGB/HCT (H&H) - STAT [id number] 12:14:00 Test Item Value Reference Range Interpretation Comments HEMOGLOBIN (BEAKER) (test code = 8.0 GM/DL 13.0-16.8 L 410) HEMATOCRIT (BEAKER) (test code = 24.0 % 40.0-50.0 L 411) POTASSIUM-STAT [id number] 12:13:00 Test Item Value Reference Range Interpretation Comments POTASSIUM (BEAKER) (test code = 4.7 meq/L 3.6-5.5 379) BLOOD GAS, [id number] 10:48:00 Test Item Value Reference Range Interpretation [...] (test code = 1819) 100.0 SODIUM NA-STAT [id number] 10:48:00 Test Item Value Reference Range Interpretation Comments SODIUM (BEAKER) (test code = 381) 132 meq/L 136-145 L GLUCOSE-STAT [id number] 10:48:00 Test Item Value Reference Range Interpretation Comments GLUCOSE RANDOM (BEAKER) (test code 203 mg/dL 70-110 H = 652) HGB/HCT (H&H) - STAT [id number] 10:48:00 Test Item Value Reference Range Interpretation Comments HEMOGLOBIN (BEAKER) (test code = 9.0 GM/DL 13.0-16.8 L 410) HEMATOCRIT (BEAKER) (test code = 26.0 % 40.0-50.0 L 411) POTASSIUM-STAT [id number] 10:47:00 Test Item Value Reference Range Interpretation Comments POTASSIUM (BEAKER) (test code = 3.5 meq/L 3.6-5.5 L 379) CBC W/PLT COUNT & AUTO [id number] 08:57:00 Test Item Value Reference Range Interpretation [...] (BEAKER) (test code = 2801) BASIC METABOLIC [id number] 08:52:00 Test Item Value Reference Range Interpretation [...] S NOT APPLICABLE FOR DIALYSIS PATIEN TS. [employer] Professor ID - EDASIPOCT-GLUCOSE [id number] 07:58:00 Test Item Value Reference Range Interpretation Comments POC-GLUCOSE METER 230 mg/dL 70-110 H : [facility] 67[facility] (BEAKER) (test code = WAQAS DUNN, 1538) 09203: [employer] Professor/Techni josephine ID = [id number] for OR JOSE MANUEL VELASCO PLATELET AGGREGATION: FUNCTION [id number] 06:17:00 Test Item Value Reference Range Interpretation Comments [id number] Nadege Biswas MD (BEAKER) (test code = (electronic 2622) signature) PLATELET COUNT AGG 202 K/CU MM 150-450 (BEAKER) (test code = 2656) ADP (BEAKER) (test code 63 % 62-100 = 4214) PLATELET RICH 271 k/cu mm 200-300 PLASMA(BEAKER) (test code = 2135) PLATELET FUNCTION SCREEN Normal aggregation INTERPRETATION (BEAKER) results with ADP. No (test code = 4650) evidence of platelet dysfunction or P2Y12 inhibitor effect. Platelet Function Screen results may be falsely low with platelet counts<75,000/cu mm.[employer] Professor ID- [id number]-GLUCOSE [id number] 21:26:00 Test Item Value Reference Range Interpretation Comments POC-GLUCOSE METER 270 mg/dL 70-110 H : TESTED A T [facility] 6720 (BEAKER) (test code = [facility], 153) 66548: [employer] Professor/Techni josephine ID = [id number] for Re yesSairy POCT-GLUCOSE [id number] 16:06:00 Test Item Value Reference Range Interpretation Comments POC-GLUCOSE METER 253 mg/dL 70-110 H : TESTED A T [facility] 6720 (BEAKER) (test code = [facility], 1538) 86330: [employer] Professor/Techni josephine ID = [id number] for Palak, Lindsay POCT-GLUCOSE [id number] 12:24:00 Test Item Value Reference Range Interpretation Comments POC-GLUCOSE METER 183 mg/dL 70-110 H : TESTED A T [facility] 6720 (BEAKER) (test code = [facility], 153) 23584: [employer] Professor/Techni josephine ID = [id number] for Palak, Lindsay BASIC METABOLIC [id number] 12:17:00 Test Item Value Reference Range Interpretation [...] S NOT APPLICABLE FOR DIALYSIS PATIEN TS. [employer] Professor ID - DAVID FCBC W/PLT COUNT & AUTO [id number] 11:55:00 Test Item Value Reference Range Interpretation [...] PERCENT (BEAKER) (test code = 2801) Hemoglobin [id number] 08:36:00 Test Item Value Reference Range Interpretation Comments Hemoglobin A1C (test code = 4548-4) 13.8 % 4.3-6.1 H Lab Interpretation (test code = Abnormal 52832-1) [facility] Hospital[facility]MO[facility] [id number] 08:36:00 Test Item Value Reference Range Interpretation Comments HEMOGLOBIN A1C (BEAKER) (test code = 13.8 % 4.3-6.1 H 368) POCT-GLUCOSE [id number] 08:24:00 Test Item Value Reference Range Interpretation Comments POC-GLUCOSE METER 176 mg/dL 70-110 H : TESTED A T [facility] 6720 (BEAKER) (test code = [facility], 153) 62311: [employer] Professor/Techni josephine ID = [id number] for Palak, Lindsay POCT-GLUCOSE [id number] 21:13:00 Test Item Value Reference Range Interpretation Comments POC-GLUCOSE METER 300 mg/dL 70-110 H : TESTED A T [facility] 6720 (BEAKER) (test code = [facility], 153) 78993: [employer] Professor/Techni josephine ID = [id number] for Re yes, Sairy POCT-GLUCOSE [id number] 17:34:00 Test Item Value Reference Range Interpretation Comments POC-GLUCOSE METER 279 mg/dL 70-110 H : TESTED A T [facility] 6720 (BEAKER) (test code = [facility], 153) 69132: [employer] Professor/Techni josephine ID = [id number] for OR JOSE MANUEL VELASCO [id number] 16:35:00 Test Item Value Reference Range Interpretation Comments PARTIAL THROMBOPLASTIN TIME 30.4 seconds 22.5-36.0 (BEAKER) (test code = 760) PROTHROMBIN [id number] 16:34:00 Test Item Value Reference Range Interpretation [...] is2.5-3.5 for patients wiht mechanical heart valves.Lipid [id number] 16:11:00 Test Item Value Reference Range Interpretation Comments Triglycerides (test 129 mg/dL code = 2571-8) Cholesterol (test code 148 mg/dL = 2093-3) HDL (test code = 30 mg/dL 5-9) LDL Calculated (test 92 mg/dL code = 33377-4) BARRON (test code = BARRON) Triglyceride Reference Range: Low Risk <150 Borderline 150-199 High Risk 200-499 Very High Risk >=500 Cholesterol Reference Range: Low Risk <200 Borderline 200-239 High Risk >240 HDL Cholesterol Reference Range: Low Risk >=60 High Risk <40 LDL Cholesterol Reference Range: Optimal <100 Near Optimal 100-129 Borderline 130-159 High 160-189 Very High >=190 [employer] Professor ID - ADMIN [facility] HospitalLIPID [id number] 16:11:00 Test Item Value Reference Range Interpretation [...] Borderline 130-159 High 160-189 Very High >=190 [employer] Professor ID - ADMINPOCT-GLUCOSE [id number] 12:53:00 Test Item Value Reference Range Interpretation Comments POC-GLUCOSE METER 129 mg/dL 70-110 H : TESTED A T [facility] 6720 (BEAKER) (test code = [facility] [place], 1538) 30098: [employer] Professor/Techni josephine ID = [id number] for OR KRISTA JOSE MANUEL BASIC METABOLIC [id number] 10:42:00 Test Item Value Reference Range Interpretation [...] S NOT APPLICABLE FOR DIALYSIS PATIEN TS. [employer] Professor ID - PATRICIA [id number] 10:42:00 Test Item Value Reference Range Interpretation Comments MAGNESIUM (BEAKER) (test code = 1.9 mg/dL 1.6-2.6 627) [employer] Professor ID - PATRICIA CPLATELET AGGREGATION: FUNCTION [id number] 10:06:00 Test Item Value Reference Range Interpretation Comments [id number] Ted Lynch MD (BEAKER) (test code = (electronic 2622) signature) PLATELET COUNT AGG 156 K/CU MM 150-450 (BEAKER) (test code = 2656) ADP (BEAKER) (test code 54 % 62-100 L = 4984) PLATELET RICH 228 k/cu mm 200-300 PLASMA(BEAKER) (test code = 2134) PLATELET FUNCTION SCREEN Decreased aggregation INTERPRETATION (BEAKER) with ADP which (test code = 8775) indicates platelet dysfunction that may be due to medication effect, uremia, or other platelet function disorders. Clinical correlation is required. Platelet Function Screen results may be falsely low with platelet counts<75,000/cu mm.[employer] Professor ID- [id number]'s Only(Ankle/Brachial Index) 2020-05-07 08:24:13[facility]ART[facility] MKCKESSON CPACSRight Impression1. The posterior [...] of Study 05/06/2020 Age 70 Visit Number [id number] Gender Male Accession Number [id number] Date of 1950 Referring [facility] Room Number 1142 Physician Joyce Hydraulic Technician Mariola Guzman [facility] Interpreting Physician CAPRI Zuluaga ProcedureType of [...] cm/s ; Diameters are measured in [facility] Hospital[facility] Mapping Legs [id number] 08:23:53Ejection [facility] ECHO HEARTLAB MKCKESSON CPACSRight Impression1. There is [...] of Study 05/06/2020 Age 70 Visit Number [id number] Gender Male Date of 1950 Referring [facility] Room Number 1142 Physician Hydraulic Technician Ame Engle, Interpreting Bettina Haas T Physician [...] + + + + + + + +[facility] HospitalArterial doppler legs [id number] 08:23:35Ejection FractionSLE ECHO HEARTLAB MKCKESSON CPACSRight Impression1. The common [...] + + + + + + !Prox HYPO SPLASHER ! !57.4 ! ! ! !33 ! ! ! + + + + + + + + + + !Mid HYPO SPLASHER ! !107 ! ! ! !31.4 ! ! ! + + + ---------+ + + + + + + !Dist HYPO SPLASHER ! !56.9 ! ! ! !29.1 ! [...] of Study 05/06/2020 Age 70 Visit Number [id number] Gender Male Accession Number [id number] Date of 1950 [facility] Room Number 1142 Physician Joyce Hydraulic Technician Ame Engle, Interpreting Bettina Haas T Physician [...] + + +------- + + + !Prox HYPO SPLASHER ! !57.4 ! ! ! !33 ! ! ! + + + + + + + + + + !Mid HYPO SPLASHER ! !107 ! ! ! !31.4 ! ! ! + + + + + + + + + + !Dist HYPO SPLASHER ! !56.9 ! ! ! !29.1 ! [...] + + + + + + +[facility] Hospital[facility]otid doppler [id number] 08:23:10Ejection FractionSLEH ECHO HEARTLAB MKCKESSON CPACSRight Impression1. [...] of Study 05/06/2020 Age 70 Visit Number [id number] Gender Male Accession Number [id number] Date of 1950 Referring [facility] Room Number 1142 Physician Hydraulic Technician Ame Engle, Interpreting Bettina Haas T Physician [...] + + + - Additional Measurements:ICAPSV/CCAPSV 0.81.ICAEDV/CCAEDV 1.26.[facility] HospitalClostridium difficile GDH [id number] 08:20:00 Test Item Value Reference Range Interpretation Comments C. Difficle Toxin Negative Negative (test code = 6386182615) C. Difficile GDH Negative Negative No indicati on of Antigen (test code = Clostri dium 2792747973) difficile infection and n o colonization. Discontinue enteric isolati on and therapy. BARRON (test code = Testing performed BARRON) by [employer] Rapid Cassette Assay. For GDH, published sensitivity of the assay is 98.7% compared to cytotoxicity testing. For Toxin AB, published sensitivity is 87.8% and specificity 99.4% compared to cytotoxicity testing.Verificati on of kit performance was done by the [facility] Microbiology Lab prior to clinical use. Lab Interpretation Normal (test code = 70586-3) [facility] HospitalC. DIFFICILE GDH [id number] 08:20:00 Test Item Value Reference Range Interpretation Comments CDT TOXIN (test code Negative Negative = 4681893126) CDT GDH ANTIGEN (test Negative Negative No ind ication of code = 6875730063) Clostridi um difficile infection and n o colonization. Discontinue ent luis felipe isolation and t herapy. Testing performed by [employer] Rapid Cassette Assay. For GDH, published sensitivity of the assay is 98.7% compared to cytotoxicity testing. For Toxin AB, published sensitivity is 87.8% and specificity 99.4% compared to cytotoxicity testing.Verification of kit performance was done by the [facility] Microbiology Lab prior to clinical use.CBC W/PLT COUNT & AUTO [id number] 06:51:00 Test Item Value Reference Range Interpretation [...] (test code = 2801) RAD, CHEST, 2 [id number] 23:11:00Reason for exam:->pneumoniaShould this be performed at the bedside?->No [facility] : 1950 Sex: MFINAL [...] outside prior exams. Signed: Luis Felipe Sanches MDReport Verified Date/Time: 05/06/2020 23:11:10 Reading Location: [address] Reading Room XR chest 2 [id number] 23:11:00 Interface, External Ris In - 05/06/2020 [...] Sanches Verified Date/Time: 05/06/2020 23:11:10 Reading Location: [facility] B1 C013T Transitional Reading Room [facility] SARS-COV2/RT-PCR ([facility])2020-05-06 22:20:00 Test Item Value Reference Range Interpretation Comments SARS-COV2/RT-PCR (test code Negative Not Detected, Negative, = 3283940) See external report for linked test SARS-COV-2 PERFORMING LAB [facility] (test code = 7388308) Negative results do not preclude SARS-CoV-2 infection [...] of the Act.Fact Sheet for Healthcare Pro viders:https://www.CENX.com/Documents/Xpert%20Xpress%20SARS%20CoV-2/Fact%20Sh eets/302-3802%40SXWT-OHU-9%20HEALTHCARE%20PROVIDERS%20FACT%20SHEET.pdfFact Sheet for Healthcare Patients:https://www.iGoOn s.r.l..PackLate.com/Documents/Xpert%20Xpress%20SARS%20CoV-2/Fact%20Sheets/302-3801%20SARS-COV -2%20PATIENT%20FACT%20SHEET.pdfPerforming Laboratory:[facility], [place] [address]ITBV-TFDWHAR [id number] 21:15:00 Test Item Value Reference Range Interpretation Comments POC-GLUCOSE METER 326 mg/dL 70-110 H : TESTED A T [facility] 6720 (BEAKER) (test code = [facility], 1538) 17443: [employer] Professor/Techni josephine ID = [id number] for ROSS GUTHRIE, [id number] 21:11:00 Test Item Value Reference Range Interpretation Comments ABO Grouping (test code = 2588) A Rh Factor (test code = 2589) [facility] HospitalPOCT-GLU[facility] [id number] 18:25:00 Test Item Value Reference Range Interpretation Comments POC-GLUCOSE METER 212 mg/dL 70-110 H : TESTED A T [facility] 6720 (BEAKER) (test code = [facility], 153) 60615: [employer] Professor/Techni josephine ID = [id number] for GABE MILLS HEMOGLOBIN [id number] 14:50:00 Test Item Value Reference Range Interpretation Comments HEMOGLOBIN A1C (BEAKER) (test code = 13.8 % 4.3-6.1 H 368) POCT-GLUCOSE [id number] 11:52:00 Test Item Value Reference Range Interpretation Comments POC-GLUCOSE METER 231 mg/dL 70-110 H : TESTED A T [facility] 6720 (BEAKER) (test code = [facility], 1538) 10844: [employer] Professor/Techni josephine ID = [id number] for GABE MILLS PLATELET AGGREGATION: FUNCTION [id number] 11:25:00 Test Item Value Reference Range Interpretation Comments [id number] Nadege Biswas MD (BEAKER) (test code = (electronic 6312) signature) PLATELET COUNT AGG 147 K/CU MM 150-450 L (BEAKER) (test code = 1946) ADP (BEAKER) (test code 42 % 62-100 L = 4654) PLATELET RICH 170 k/cu mm 200-300 L PLASMA(BEAKER) (test code = 2134) PLATELET FUNCTION SCREEN Decreased aggregation INTERPRETATION (BEAKER) with ADP which (test code = 1447) indicates platelet dysfunction that may be due to medication effect, uremia, or other platelet function disorders. Clinical correlation is required. Platelet Function Screen results may be falsely low with platelet counts<75,000/cu mm.[employer] Professor ID- [id number]-GLUCOSE [id number] 09:00:00 Test Item Value Reference Range Interpretation Comments POC-GLUCOSE METER 162 mg/dL 70-110 H : TESTED A T [facility] 6720 (BEAKER) (test code = [place], 1538) 59115: [employer] Professor/Techni josephine ID = [id number] for GABE MILLS BASIC METABOLIC [id number] 07:13:00 Test Item Value Reference Range Interpretation [...] S NOT APPLICABLE FOR DIALYSIS PATIEN TS. [employer] Professor ID - LEVI [id number] 07:13:00 Test Item Value Reference Range Interpretation Comments MAGNESIUM (BEAKER) (test code = 1.8 mg/dL 1.6-2.6 627) [employer] Professor ID - LEVI MCBC W/PLT COUNT & AUTO [id number] 06:25:00 Test Item Value Reference Range Interpretation [...] of Study 05/05/2020 Gender Male Visit Number [id number] Race Unknown Room Number 1142 Number Date of 1950 Referring Physician Sriram Denis MD Age 70 year(s) Hydraulic Technician Bina Serrano Threshing Operator Rachel Dixon Interpreting MD Nhi Holderolafam Physician Procedure Type of Study TTE procedure:2DECHO [...] CO: 5.67 l/min LVOT CI: 2.75 l/min/m^2[facility] HospitalPOCT-GLUCOSE [id number] 21:11:00 Test Item Value Reference Range Interpretation Comments POC-GLUCOSE METER 223 mg/dL 70-110 H : TESTED A T [facility] 6720 ([employer]) (test code = [facility] [employer] [facility], 153) 81710: [employer] Professor/Techni josephine ID = [id number] for LATASHA TORREYSORIN POCT-GLUCOSE [id number] 17:06:00 Test Item Value Reference Range Interpretation Comments POC-GLUCOSE METER 248 mg/dL 70-110 H : TESTED A T [facility] 6720 ([employer]) (test code = [facility] [employer] [facility], 153) 07735: [employer] Professor/Techni josephine ID = [id number] for GENET MONACOMADI GABE POCT-GLUCOSE [id number] 12:10:00 Test Item Value Reference Range Interpretation Comments POC-GLUCOSE METER 113 mg/dL 70-110 H : TESTED A T [facility] 6720 ([employer]) (test code = [facility] [employer] [facility], 153) 68935: [employer] Professor/Techni josephine ID = [id number] for GABE MILLS HEMOGLOBIN [id number] 10:27:00 Test Item Value Reference Range Interpretation Comments HEMOGLOBIN A1C (BEAKER) (test code = 14.2 % 4.3-6.1 H 368) BASIC METABOLIC [id number] 06:21:00 Test Item Value Reference Range Interpretation [...] S NOT APPLICABLE FOR DIALYSIS PATIEN TS. [employer] Professor ID - [id number] 06:21:00 Test Item Value Reference Range Interpretation Comments MAGNESIUM (BEAKER) (test code = 1.7 mg/dL 1.6-2.6 627) [employer] Professor ID - BSLIPID [id number] 06:21:00 Test Item Value Reference Range Interpretation [...] Borderline 130-159 High 160-189 Very High >=190 [employer] Professor ID - BSCBC W/PLT COUNT & AUTO [id number] 06:00:00 Test Item Value Reference Range Interpretation [...] PERCENT (BEAKER) (test code = 2801) PROTHROMBIN [id number] 05:50:00 Test Item Value Reference Range Interpretation [...]
[2020-10-18] MEDS: CEFAZOLIN/SWI 2gm 2 GM/20 ML SYR IVP SCH (19:52)
[2020-10-18] MEDS ORDERED: ACETAMINOPHEN 500 MG TAB PO PRN (19:53)
[2020-10-18] MEDS: INSULIN -REGULAR HUMAN 50 UNIT/0.5 ML ML SQ SCH (21:00)
[2020-10-18] MEDS: MORPHINE 2 MG/ML SYR IV PRN (21:44)
[2020-10-18] MEDS: ONDANSETRON 4 MG/2 ML VIAL IV PRN (21:50)
--- NOTE | 2020-10-18 22:39 | OP ---
Date of Procedure: 10/18/2020 Surgeon: MEHREEN BYERS Preoperative Diagnosis: Digital gangrene, right index finger. Postoperative Diagnoses: 1.Digital gangrene, right index finger. 2.Purulent tenosynovitis, right index finger. Procedure: Right index finger ray amputation. [id number] Anesthesia: General. Iv Fluids: 700. Ebl: 20. Urine Output: Not recorded. Findings: Full-thickness dry eschar at ulnar aspect of PIP joint extended down on to joint capsule. There was some purulent material overlying the middle phalanx but that did not extend proximally int o the hand. Indication: Scott Mederos is a 70-year-old right-hand dominant male who incurred a right index finge r P1 fracture on August 22 after a fall. He underwent closed reduction and percutaneous pinning a week later, and it was unfortunately complicated by a full-thickness wound underlying the pin site at the level of the PIP joint. Because of this, his pins were removed at 3 weeks. He had been perform ing local wound care with Betadine pain, however the wound failed to progress and showed evidence of cellulitis. Given the patient's multiple comorbidities, we discussed that digit salvage would not be achievable, thus we discussed a ray amputation. We discussed the risks and benefits including bleed ing, infection, injury to surrounding structures, scarring, recurrence, and need for additional proce dures. After thorough discussion of the risks and benefits, the patient was deemed an appropriate greene rgical candidate. Procedure In Detail: After written consent, the patient was brought to the operating room. Pressure points were padded. SCDs were turned on. IV antibiotics were given and the patient was then placed under general anesthesia. A time-out was then performed. A right upper extremity tourniquet was pl aced in the arm with an armboard and the bed turned 90 degrees. The arm was then prepped and draped in the usual fashion. First a doppler was used to evaluate the radial and ulnar arteries. They did have a signal, however they were biphasic and soft. The palmar arch was very faint and non-discernib le at the level of digital arteries. After this, the hand was turned over and incisions were marked via a fishmouth at the level of P1 extending proximally over the second metacarpal. An Esmarch was u sed to exsanguinate the arm and then the tourniquet was inflated to 250 mmHg. After this, all incisi ons were made and extended proximally. The extensor tendons were incised and the second metacarpal w as scored of periosteum approximately 2 cm from the articulation with the carpus. It was circumferen tially elevated and freed from eriosteum and interosseous. Hohmanns were then placed, and using a sa gittal saw, an osteotomy was performed full-thickness through with care not to injure any surrounding structures. After this, the metacarpal was carefully dissected free from the underlying interossei and removed at the level of the MCP joint and sent off the back table. Next, the digit was slowly an d carefully freed. The neurovascular bundles were identified and transected and the entire digit wit h proximal phalanx included was taken off to the back table. Next, the neurovascular bundles were di ssected free. The digital nerves were excised proximally to prevent neuroma and very small and dimin utive digital arteries were cauterized. Next, the osteotomized bone was rasped and smoothed down to prevent palpability. Next, it was copiously irrigated and the deep soft tissue interossei, was appr oximated with 4-0 Monocryl. After this, the tourniquet was taken down to assess for bleeding. There was fairly decent bleeding to the site. All excessive bleeding was electrocauterized. Then, the vo lar palmar base flap was rotated dorsally and tailor tacked into place. Additional soft tissue was e xcised for contour. The skin was then closed with 4-0 nylon in an interrupted fashion. After this, a median ulnar and dorsal radial nerve block was performed with a mixture of 1% lidocaine with epinep hrine and 0.25% Marcaine. The hand was then cleaned and dried. Incision was dressed with bacitracin and xeroform and lose Kerlix wrap. The patient tolerated procedure well. All instrument counts and laparotomy pads were counted for at the end of the procedure. Of note, a finger was dissected on th e back table. The necrotic wound over the PIP joint was indeed full-thickness and went joint through joint capsule. The fracture site was not yet healed and had some purulent material surrounding it. Complications: None. Disposition: To postanesthesia care unit, and he will be admitted under the care of Internal Medicin e for 1 day for IV antibiotics. JULIO CESAR/JERONIMO Voice ID: [id number] Report ID: [id number]
--- NOTE | 2020-10-18 23:47 | P.HP ---
Certification for Inpatient Patient admitted to: Inpatient With expected LOS: >2 Midnights Patient will require the following post-hospital care: None Practitioner: I am a practitioner with admitting privileges, knowledge of patient current condition, hospital course, and medical plan of care. Services: Services provided to patient in accordance with Admission requirements found in Title 42 Section 412.3 of the Code of Federal Regulations Patient History Date of Service: 10/18/20 Reason for admission: Amputation right 2nd digit History of Present Illness: 70-year-old male with history of diabetes mellitus type 2, CAD, hypothyroidism, GERD was directly admitted by his hand surgeon Dr. Terry foreign amputation of the right 2nd finger. Patient reportedly had that finger operated on approximately 3 months prior and was a complication requiring amputation of this digit. Patient went to the operating room today and had successful operation with amputation of the right 2nd digit. And surgery prefers patient admitted to hospitalist service for management of his chronic conditions with consult for further management. Allergies tramadol Allergy (Verified 10/18/20 10:26) Agitation, Tremors acyclovir Adverse Reaction (Verified 10/18/20 10:26) acute renal injury meperidine Adverse Reaction (Verified 10/18/20 10:26) unable to recall reaction vancomycin Adverse Reaction (Verified 10/18/20 10:26) acute kidney injury Home Medications: Ferrous Sulfate 325 mg PO DAILY 02/19/20 Folic Acid 1 mg PO DAILY 02/19/20 Linagliptin [Tradjenta] 5 mg PO DAILY 02/19/20 Liothyronine Sodium [Cytomel] 5 mcg PO [id number] 02/19/20 Midodrine HCl 10 mg PO TID 02/19/20 Mirtazapine 45 mg PO BEDTIME 02/19/20 Pantoprazole [Protonix Tab*] 1 tab PO DAILY 02/19/20 Trazodone [Desyrel*] 150 mg PO BEDTIME 02/19/20 Atorvastatin Calcium [Lipitor] 80 mg PO BEDTIME #30 tab 05/28/20 Apixaban [Eliquis] 2.5 mg PO BID #60 tablet 05/30/20 Gabapentin 1,200 mg PO BID #60 tablet 05/30/20 Fludrocortisone [Florinef *] 0.2 mg PO DAILY 08/27/20 Levothyroxine [Synthroid] 75 mcg PO [id number] 08/27/20 Insulin Aspart [Novolog] See Protocol SQ AC 10/18/20 Smz./Tmp. [Bactrim Ds 800 MG/160 MG] 1 tab PO BID 10/18/20 - Past Medical/Surgical History Diabetic: Yes -: Hx Throat CA -: HTN -: Diabetes mellitus type 2 non-insulin dependent -: GERD -: Hypothyroidism -: Hyperlipidemia -: Peripheral vascular disease, prior arterial stent -: Former tobacco use -: Chronic renal disease -: Peripheral artery disease -: Shingles, trigeminal neuralgia -: Constipation -: bilateral cataract removal -: Toe amputation, Left Foot:2 -: Arterial stent to the left lower extremity -: 4th Finger left hand, partial amputation -: Right index finger sx r/t fx Psychosocial/ Personal History: - Family History Father -: Heart disease Mother -: Hypertension Brother -: Hypertension Sister -: Hypertension, Stroke - Social History Smoking Status: Former smoker Alcohol use: No CD- Drugs: No Caffeine use: Yes Place of Residence: Home Review of Systems 10-point ROS is otherwise unremarkable Musculoskeletal: Hand Pain Physical Examination - Vital Signs Temperature: 97.1 F Blood Pressure: 164/60 Pulse: 78 Respirations: 17 Pulse Ox (%): 95 - Physical Exam General: Alert, In no apparent distress HEENT: Atraumatic, PERRLA, Mucous membr. moist/pink Neck: Supple, 2+ carotid pulse no bruit, No LAD Respiratory: Clear to auscultation bilaterally, Normal air movement Cardiovascular: Regular rate/rhythm, Normal S1 S2 Gastrointestinal: Normal bowel sounds, No tenderness Musculoskeletal: No tenderness, Other (Dressing in place to right hand, dressing is dry and intact.) Integumentary: No rashes Neurological: Normal speech, Normal strength at 5/5 x4 extr, Normal tone, Normal affect - Studies Laboratory Data (last 24 hrs) 10/18/20 09:57: Sodium 138, Potassium 4.7, BUN 29 H, Creatinine 1.03, Glucose 137 H 10/18/20 09:17: WBC 6.40, Hgb 9.3 L, Hct 27.2 L, Plt Count 219 Assessment and Plan - Plan Assessment Operative Amputation of the right 2nd digit Diabetes mellitus type 2 Hypertension History of coronary artery disease GERD Hypothyroidism Plan Operative Amputation of the right 2nd digit : To be managed by hand surgery. Continue with IV Ancef, pain medications as needed. Dressing currently dry and intact, pain assistant track coach probe with this time. Continue with SCDs, will initiate patient's Eliquis when approved by surgery. Diabetes mellitus type 2: A.c. HS Accu-Cheks, sliding scale insulin therapy. A1c with morning labs. Hypertension: Obtain and continue home medications as appropriate. History of coronary artery disease: Obtain and continue home medications as appropriate GERD: Continue Protonix Hypothyroidism: Thyroid panel morning labs, continue home meds. Discharge Plan: Home Plan to discharge in: 48 Hours - Advance Directives Does patient have a Living Will: No Does patient have a Durable POA for Healthcare: No - Code Status/Comfort Care Code Status Assessed: Yes (Full code) Critical Care: No Time Spent Managing Pts Care (In Minutes): 55
[2020-10-19] MEDS ORDERED: GABAPENTIN 300 MG CAP PO ONE (01:18)
[2020-10-19] MEDS: MORPHINE 2 MG/ML SYR IV PRN (01:29)
[2020-10-19] MEDS: CEFAZOLIN/SWI 2gm 2 GM/20 ML SYR IVP SCH ×2 (01:41→08:13)
[2020-10-19 02:47] VITALS: BMI 21.6
[2020-10-19] MEDS: ONDANSETRON 4 MG/2 ML VIAL IV PRN (03:27)
[2020-10-19] MEDS: HYDROMORPHONE HCL 0.5 MG/0.5 ML INJ IV PRN ×2 (03:27→08:13)
[2020-10-19 03:57] LABS: Absolute Lymphocytes (CBC) 0.7 K/uL (0.7-4.9); Basophils % 0.4 % (0-1.3); Hematocrit 26.8 % (39.6-49.0); MPV 8.3 fL (7.6-11.3); RBC Red Blood Cell Count 2.89 M/uL (4.33-5.43)
[2020-10-19 04:48] LABS: Albumin 3.2 g/dL (3.4-5.0); Bilirubin Total 0.2 mg/dL (0.2-1.0); Magnesium 2.2 mg/dL (1.8-2.4); Potassium 5.1 mmol/L (3.5-5.1); Protein, Total 6.8 g/dL (6.4-8.2)
[2020-10-19 04:49] LABS: Thyroid Stimulating Hormone 14.1 uIU/mL (0.360-3.740)
[2020-10-19] MEDS: INSULIN -REGULAR HUMAN 50 UNIT/0.5 ML ML SQ SCH (05:38)
[2020-10-19] MEDS ORDERED: HYDROCODONE/APAP 10/325 TAB PO PRN (05:55)
[2020-10-19] MEDS ORDERED: LIOTHYRONINE SOD 5 MCG TAB PO SCH (06:00)
[2020-10-19] MEDS ORDERED: LEVOTHYROXINE SOD 0.075 MG TAB PO SCH (06:00)
[2020-10-19] MEDS ORDERED: NA CHLORIDE 0.9% 500 ML IV ONE (06:10)
[2020-10-19] MEDS ORDERED: PANTOPRAZOLE 40MG TABLET PO SCH (07:30)
[2020-10-19 08:02] VITALS: O2SAT 96
[2020-10-19 08:07] VITALS: BP 128/62; TEMP 98.1
--- NOTE | 2020-10-19 08:54 | P.DS ---
Admission Date: 10/18/20 Discharge Date: 10/19/20 Primary Care Provider: Plastic Surgery-Dr. Byers Disposition: ROUTINE DISCHARGE Discharge Condition: GOOD Reason for Admission: Amputation right 2nd digit Consultations: Plastic Surgery-Dr. Byers Procedures: COVID: Negative Surgery: Date of Procedure: 10/18/2020 Surgeon: MEHREEN BYERS Preoperative Diagnosis: Digital gangrene, right index finger. Postoperative Diagnoses: 1. Digital gangrene, right index finger. 2. Purulent tenosynovitis, right index finger. Procedure: Right index finger ray amputation. Anesthesia: Findings: Full-thickness dry eschar at ulnar aspect of PIP joint extended down on to joint capsule. There was some purulent material overlying the middle phalanx but that did not extend proximally into the hand. Medical problem list: Digital gangrene with purulent tenosynovitis of the right index finger status right index finger ray amputation Diabetes mellitus type 2 Hypertension History of coronary artery disease GERD Hypothyroidism Anemia of chronic disease Peripheral vascular disease Orthostatic hypotension Brief History of Present Illness: 70-year-old male with history of diabetes mellitus type 2, CAD, hypothyroidism, GERD was admitted for observation due to digital gangrene with purulent tenosynovitis of the right index finger. Patient was seen by plastic surgery Dr. Byers. Patient had right index ray amputation. Patient was started on IV to buttock therapy. Hospital Course: Patient presented with digital gangrene with purulent tenosynovitis of the right index finger. Patient was admitted for treatment. Patient was seen by plastic surgery and followed postoperatively. Patient had right index finger ray amputation. Patient was admitted overnight for observation. Patient has done well. Patient has done well. Pain seen and evaluated by plastic surgery. At this time plastic surgery plans to discharge patient on Bactrim DS, Tylenol 3 as needed for pain. Patient will follow up with plastic surgery as an outpatient next Sunday. Patient will continue with current wound care. Plastic surgery recommends to restart Eliquis on . Further instructions to come from plastic surgery. Patient with underlying diabetes, hypertension, CAD, GERD, hypothyroidism, anemia of chronic disease, orthostatic hypotension and adrenal insufficiency. At discharge patient will resume his home medications. As mentioned above Eliquis will be reinitiated on . Recommend follow-up with his PCP to further monitor and address. Vital Signs/Physical Exam: Temp Pulse Resp BP Pulse Ox 98.1 F 75 18 128/62 96 10/19/20 08:00 10/19/20 08:00 10/19/20 08:13 10/19/20 08:00 10/19/20 08:13 General: Alert, In no apparent distress, Oriented x3, Cooperative HEENT: Atraumatic Neck: Supple Respiratory: Clear to auscultation bilaterally, Normal air movement Cardiovascular: Normal pulses, Regular rate/rhythm Gastrointestinal: Normal bowel sounds, Soft and benign, Non-distended, No masses, No rebound, No guarding Integumentary: Other (Postsurgical changes noted to the right hand. No erythema,. Pain under control.) Neurological: Normal speech, Normal strength at 5/5 x4 extr, Normal tone, Normal affect Laboratory Data at Discharge: WBC 8.50 K/uL (4.3-10.9) D 10/19/20 03:05 Hgb 8.9 g/dL (13.6-17.9) L 10/19/20 03:05 Hct 26.8 % (39.6-49.0) L 10/19/20 03:05 Plt Count 161 K/uL (152-406) D 10/19/20 03:05 Sodium 137 mmol/L (136-145) 10/19/20 03:05 Potassium 5.1 mmol/L (3.5-5.1) 10/19/20 03:05 BUN 29 mg/dL (7-18) H 10/19/20 03:05 Creatinine 1.30 mg/dL (0.55-1.3) 10/19/20 03:05 Glucose 361 mg/dL (74-106) H 10/19/20 03:05 Magnesium 2.2 mg/dL (1.8-2.4) 10/19/20 03:05 Total Bilirubin 0.2 mg/dL (0.2-1.0) 10/19/20 03:05 AST 17 U/L (15-37) 10/19/20 03:05 ALT 27 U/L (12-78) 10/19/20 03:05 Alkaline Phosphatase 93 U/L (45-117) 10/19/20 03:05 Home Medications: Ferrous Sulfate 325 mg PO DAILY 02/19/20 Folic Acid 1 mg PO DAILY 02/19/20 Linagliptin [Tradjenta] 5 mg PO DAILY 02/19/20 Liothyronine Sodium [Cytomel] 5 mcg PO [id number] 02/19/20 Midodrine HCl 10 mg PO TID 02/19/20 Mirtazapine 45 mg PO BEDTIME 02/19/20 Pantoprazole [Protonix Tab*] 1 tab PO DAILY 02/19/20 Trazodone [Desyrel*] 150 mg PO BEDTIME 02/19/20 Atorvastatin Calcium [Lipitor] 80 mg PO BEDTIME #30 tab 05/28/20 Apixaban [Eliquis *] 2.5 mg PO BID #60 tablet 05/30/20 Gabapentin 1,200 mg PO BID #60 tablet 05/30/20 Fludrocortisone [Florinef *] 0.2 mg PO DAILY 08/27/20 Levothyroxine [Synthroid*] 75 mcg PO [id number] 08/27/20 Insulin Aspart [Novolog] See Protocol SQ AC 10/18/20 Smz./Tmp. [Bactrim Ds 800 MG/160 MG*] 1 tab PO BID 10/18/20 Physician Discharge Instructions: Patient presented with digital gangrene with purulent tenosynovitis of the right index finger. Patient was admitted for treatment. Patient was seen by plastic surgery and followed postoperatively. Patient had right index finger ray amputation. Patient was admitted overnight for observation. Patient has done well. Patient has done well. Pain seen and evaluated by plastic surgery. At this time plastic surgery plans to discharge patient on Bactrim DS, Tylenol 3 as needed for pain. Patient will follow up with plastic surgery as an outpatient next Sunday. Patient will continue with current wound care. Plastic surgery recommends to restart Eliquis on . Further instructions to come from plastic surgery. Patient with underlying diabetes, hypertension, CAD, GERD, hypothyroidism, anemia of chronic disease, orthostatic hypotension and adrenal insufficiency. At discharge patient will resume his home medications. As mentioned above Eliquis will be reinitiated on . Recommend follow-up with his PCP to further monitor and address. Diet: ADA Activity: Ad sandi Time spent managing pt's care (in minutes): 55
[2020-10-19] MEDS ORDERED: PNEUMOCOCCAL VACCINE 0.5 ML IMVAC ONE (09:00)
[2020-10-19] MEDS ORDERED: FOLIC ACID 1 MG TABLET PO SCH (09:00)
[2020-10-19] MEDS ORDERED: MIDODRINE HCL 5 MG TABLET PO SCH (09:00)
[2020-10-19] MEDS ORDERED: FERROUS SULFATE 325 MG TAB PO SCH (09:00)
[2020-10-19] MEDS ORDERED: FLUDROCORTISONE 0.1 MG TAB PO SCH (09:00)
[2020-10-19] MEDS ORDERED: GABAPENTIN 300 MG CAP PO SCH (09:00)
[2020-10-19] MEDS ORDERED: TRAZODONE 150 MG TAB PO SCH (21:00)
[2020-10-19] MEDS ORDERED: MIRTAZAPINE 15 MG TAB PO SCH (21:00)
[2020-10-19] MEDS ORDERED: ATORVASTATIN 80 MG TAB PO SCH (21:00)
== END 2020-10-19 10:57 | disposition home health service (06) ==
LOC: OR 09:22 → 4TH 18:03
PROVIDERS: ADMIT Family Medicine; ATTEND Family Medicine
PROC: 0X6N0Z0 Detachment at Right Index Finger, Complete, Open Approach (ICD-10-PCS; principal; 2020-10-18 12:30)
DX: I96 Gangrene, not elsewhere classified (principal); M65.141 Other infective (teno)synovitis, right hand; E11.52 Type 2 diabetes mellitus with diabetic peripheral angiopathy with gangrene; Z20.822 Contact with and (suspected) exposure to COVID-19; Z95.1 Presence of aortocoronary bypass graft; Z79.4 Long term (current) use of insulin; I25.10 Atherosclerotic heart disease of native coronary artery without angina pectoris; K21.9 Gastro-esophageal reflux disease without esophagitis; E03.9 Hypothyroidism, unspecified; D63.8 Anemia in other chronic diseases classified elsewhere; I95.1 Orthostatic hypotension; Z85.819 Personal history of malignant neoplasm of unspecified site of lip, oral cavity, and pharynx; Z87.891 Personal history of nicotine dependence; Z89.422 Acquired absence of other left toe(s); Z89.022 Acquired absence of left finger(s); I12.9 Hypertensive chronic kidney disease with stage 1 through stage 4 chronic kidney disease, or unspecified chronic kidney disease; N18.9 Chronic kidney disease, unspecified
CPT/HCPCS: 26951; 87070 ×2; 85025 ×2; 80048; 36415 ×2; 86900; 83735; 86850; 87205 ×3; 86901; 82947 ×5; 88305; 87075; 84443; 87077 ×2; 87186 ×2; 83036; 84439; 87176; 80053; U0003; J2270 ×2; J1170 ×2; J0690 ×2; J7040; J7030; J2405 ×3; G0378; G0379; J2704; J3010

== ENCOUNTER 2022-03-08 10:32 | Emergency (ER) | payer OTHER ==
--- OUTSIDE RECORDS SUMMARY | 2022-03-08 10:37 | XMS REPORT | Continuity of Care Document ---
:1950 Author Organization [facility] t Address [address] [place] [address] Care Team Providers Name Role Phone DEGROOT, VEDA SMITH Attending Clinician Unavailable MY MCKEON Attending Clinician Unavailable DEGROOT, VEDA SMITH Admitting Clinician Unavailable HARRIS HINKLE Admitting Clinician Unavailable Payers Payer Name Policy Type Policy Number Effective Date Expiration Date S huma MEDICARE A B [id number] 2014 00:00:00 [employer] INDEMNITY [id number] 1610-09-01 NON CONTR 00:00:00 Problems Condition Condition Condition Status Onset Resolution Last Treating Co mments Source Name Details Category Date Date Treatment Clinician Date s/p ACB x4 s/p ACB x4 Disease Active 2019-[address] by by 07-09 Sadie Ramos 00:00: Me dical 05/09/20 05/09/20 00 Center PAD PAD Disease Active 2019-[address] [facility] (periphera (periphera 07-06 Sahra kes l artery l artery 00:00: Medica l disease) disease) 00 Center Uncontroll Uncontroll Disease Active 2019-[address] ed type 2 ed type 2 07-06 [place] [facility] diabetes diabetes 00:00: Medica l mellitus mellitus 00 Center with with hyperglyce hyperglyce helena helena Coronary Coronary Disease Active 2019[facility] artery artery 07-05 [facility] disease disease 00:00: Medical 00 Center Acute Acute Disease Active [facility] respirator respirator Sahra kes y y Medical insufficie insufficie Ce nter ncy ncy Acute Acute Disease Active [facility] post-opera post-opera Sahra kes tive pain tive pain [facility] Hypothyroi Hypothyroi Disease Active [facility] dism, dism, [facility] unspecifie unspecifie Me dical d type d type Center Allergies, Adverse Reactions, Alerts Allergy Allergy Status Severity Reaction(s) Onset Inactive Treating Comm ents Source Name Type Date Date Clinician Acyclovi Propensi Active 2019-[address] [facility] [address] [facility] ty to 1-10 [facility] adverse 00:00: Medical s reaction 00 Center s Meperidi Propensi Active 2019-[address] ne ty to 1-10 [facility] adverse 00:00: Medical reaction 00 Center s Vancomyc Propensi Active 2019-[address] in ty to 1-10 [facility] adverse 00:00: Medical s reaction 00 Center s VANCOMYC Allergy Active 2019-[address] IN 1-10 [facility] ANALOGUE 00:00: Medical S 00 Center ACYCLOVI Allergy Active 2019-[address] R 1-10 [facility] ANALOGUE 00:00: Medical S 00 Center MEPERIDI Allergy Active 2019-[address] NE 1-10 [facility] 00:00: Medical 00 Center Social History Social Habit Start Date Stop Date Quantity Comments Source Sex Assigned At [address] Sahra kes 00:00:00 00:00:00 Medical Center Medications Ordered Filled Start Stop Current Ordering Indication Dosage Frequency Signature Comments Components Source Medication Medication Date Date Medication? Clinician (SIG) Name Name aspirin 81 2019-06- No 81mg QD Take [address] [facility] MG EC 07-19-25 tablet (81 [facility] tablet 00:00: 23:59 mg total) Medic al 00 :00 by mouth Center daily. gabapentin 2019-06 Yes 300mg Q.[id number] Take [address] (NEURONTIN) - [id number] mg by L ukes 300 MG 15:43: 3D mouth 3 Medical capsule 43 (three) Center times daily. liothyronin 2019-06 Yes 5ug QD Take [address] e (CYTOMEL) -24 by mouth Luke s 5 MCG 15:43: daily. Medical tablet 43 Center midodrine 2019-06 Yes 10mg Q.86406087 Take [address] (PROAMATINE -24 [id number] by mouth 3 [facility] ) 10 MG 15:43: 3D (three) Medical tablet 43 times Center daily. levothyroxi 2019-06 Yes 50ug Take [address] [facility] ne 1-24 mcg by [facility] (SYNTHROID, 15:43: mouth Medic al LEVOTHROID) 43 Every Center 50 MCG morning on tablet an empty stomach. insulin 2019-06 Yes 15U QD Inject 15 [facility] glargine 1-24 Units [facility] (LANTUS) 00:00: subcutaneo Med ical 100 unit/mL 00 usly Center (3 mL) InPn nightly. atorvastati 2019-06- No 80mg QD Take [address] n (LIPITOR) 1-24 11-24 tablet (80 L u[facility] 80 MG 00:00: 23:59 mg total) Medica l tablet 00 :00 by mouth Center nightly. fludrocorti 2019-06 No .1mg QD Take [address] sone 1-24 11-24 tablet [facility] (FLORINEF) 00:00: 23:59 (0.1 mg Med ical 0.1 mg 00 :00 total) by Center tablet mouth daily. insulin 2019-06 No 6U Inject 6 [facility] t lispro 1-24 11-24 Units [facility] (HumaLOG) 00:00: 23:59 subcutaneo M edical 100 unit/mL 00 :00 usly 3 Center injection (three) times daily before meals. Vital Signs Vital Name Observation Time Observation Value Comments Source WEIGHT 2020-05-16 06:39:00 72.349 kg WEIGHT 2020-05-09 15:27:00 70.1 kg HEIGHT 2020-05-04 23:43:00 180.3 cm WEIGHT 2020-05-16 06:39:00 72.349 kg WEIGHT 2020-05-09 15:27:00 70.1 kg HEIGHT 2020-05-04 23:43:00 180.3 cm Procedures This patient has no known procedures. Plan of Care Planned Activity Planned Date Details Comments Source Future Scheduled 2022-02-23 INFLUENZA VACCINE (#1) [facility] 00:00:00 [code = INFLUENZA Medical Ce nter VACCINE (#1)] Future Scheduled 2021-06-[address] [facility] Test 00:00:00 (12+) [code = Medical Center DEPRESSION SCREENING (12+)] Future Scheduled 2021-06-25 FALLS RISK SCREENING [facility] Test 00:00:00 [code = FALLS RISK Medical C enter SCREENING] Future Scheduled 2020-08-[address] Sahra kes Test 00:00:00 measurement (procedure) [facility] [code = 86183308] Future Scheduled 2015-03-[address] [facility] Test 00:00:00 WELLNESS (YEAR 2 or Medical Center FIRST YEAR if no IPPE) [code = MEDICARE ANNUAL WELLNESS (YEAR 2 or FIRST YEAR if no IPPE)] Future Scheduled 1999 SHINGLES VACCINES ([address] [facility] Test 00:00:00 2) [code = SHINGLES Medical Center VACCINES (1 of 2)] Future Scheduled 1968 DTAP/TDAP/TD VACCINES [facility] 00:00:00 (1 - Tdap) [code = Medical C enter DTAP/TDAP/TD VACCINES (1 - Tdap)] Future Scheduled 1967 HEPATITIS C SCREENING [facility] 00:00:00 [code = HEPATITIS C Medical Center SCREENING] Future Scheduled 1959 DIABETIC EYE EXAM [code [facility] 00:00:00 = DIABETIC EYE EXAM] Medical Center Future Scheduled [address] [facility] Test 00:00:00 examination Medical Center (regime/therapy) [code = 359115098] Future Scheduled 1959 Urine screening for [facility] Test 00:00:00 protein (procedure) Medical Center [code = 582978628] Future Scheduled 1955 PNEUMOCOCCAL 65+ YRS ([address] [facility] Test 00:00:00 - PCV) [code = Medical Cente r PNEUMOCOCCAL 65+ YRS (1 - PCV)] Future Scheduled 1949 COVID-19 VACCINE (#1) [facility] Test 00:00:00 [code = COVID-[address] VACCINE (#1)] Future Scheduled 1949 CT Colonography (combo) [facility] Test 00:00:00 [code = CT Colonography [facility] (combo)] Future Scheduled 1949 Screening for malignant [facility] Test 00:00:00 neoplasm of colon Medical Ce nter (procedure) [code = 873134130] Future Scheduled 1949 Screening for malignant [facility] Test 00:00:00 neoplasm of colon Medical Ce nter (procedure) [code = 459540352] Future Scheduled 1949 Screening for malignant [facility] Test 00:00:00 neoplasm of colon Medical Ce nter (procedure) [code = 219486506] Future Scheduled 1949 Screening for malignant [facility] Test 00:00:00 neoplasm of colon Medical Ce nter (procedure) [code = 348819774] Future Scheduled 1950 Sigmoidoscopy [code = [facility] Test 00:00:00 Sigmoidoscopy] Medical Cente r Encounters Start End Encounter Admission Attending Care Care Encounter Source Date/Time Date/Time Type Type Clinicians Facility Department ID 2021-03-31 Inpatient UR DEGROOT, [facility] Cardiology [id number] SLE 11:05:53 VEDA 2020-06-03 2020-06-03 Outpatient [facility], [facility] [id number] SLE 00:00:00 00:00:00 MY Results Test Description Test Time Test Comments Results Result Comments Source POCT-GLUCOSE METER 2020-05-18 11:50:00 Test Item Value Reference Range Interpretation Comme nts POC-GLUCOSE METER ([facility]) 236 mg/dL 70-110 H : TESTED AT [address] (test code = 1538) [facility] X, [address]: Grocery Sacker/Techni josephine ID = [id number] for Huan GONZALEZ POCT-GLUCOSE [id number] 08:12:00 Test Item Value Reference Range Interpretation Comments POC-GLUCOSE METER 82 mg/dL 70-110 : [facility] (test code = [facility], 153) [address]: Grocery Sacker/Techni josephine ID = [id number] for SIMONA Alex RICARDO POCT-GLUCOSE [id number] 07:30:00 Test Item Value Reference Range Interpretation Comments POC-GLUCOSE METER 156 mg/dL 70-110 H : [facility] (test code = [facility], 153) [address]: Grocery Sacker/Techni josephine ID = [id number] for TATIANNA REDDY POCT-GLUCOSE [id number] 00:04:00 Test Item Value Reference Range Interpretation Comments POC-GLUCOSE METER 104 mg/dL 70-110 : TESTED A T [facility] 6720 (BEAKER) (test code = [facility], 1538) 056[address]: Grocery Sacker/Techni josephine ID = [id number] for TAO HUDSON POCT-GLUCOSE [id number] 16:45:00 Test Item Value Reference Range Interpretation Comments POC-GLUCOSE METER 161 mg/dL 70-110 H : TESTED A T [facility] 6720 (BEAKER) (test code = [facility], 1538) 15154: Grocery Sacker/Techni josephine ID = [id number] for ERNESTO-CARTER, S HIKARA POCT-GLUCOSE [id number] 12:54:00 Test Item Value Reference Range Interpretation Comments POC-GLUCOSE METER 160 mg/dL 70-110 H : TESTED A T [facility] 6720 (BEAKER) (test code = [facility], 1538) 93236: Grocery Sacker/Techni josephine ID = [id number] for ERNESTO-CARTER, S HIKARA POCT-GLUCOSE [id number] 12:54:00 Test Item Value Reference Range Interpretation Comments POC-GLUCOSE METER 103 mg/dL 70-110 : TESTED A T [facility] 6720 (BEAKER) (test code = [facility], 1538) 44637: Grocery Sacker/Techni josephine ID = [id number] for ERNESTO-CARTER, S HIKARA [id number] 05:59:00 Test Item Value Reference Range Interpretation Comments MAGNESIUM (BEAKER) (test code = 1.8 mg/dL 1.6-2.6 627) Grocery Sacker ID - PIAYA LBASIC METABOLIC [id number] 05:59:00 Test Item Value Reference Range Interpretation [...] S NOT APPLICABLE FOR DIALYSIS PATIEN TS. Grocery Sacker ID - PIAYA LCBC (HEMOGRAM ONLY)2020-05-17 05:38:00 Test Item Value Reference [...] 0-0 (BEAKER) (test code = 413) POCT-GLUCOSE [id number] 18:18:00 Test Item Value Reference Range Interpretation Comments POC-GLUCOSE METER 97 mg/dL 70-110 : TESTED A T [facility] 6720 (BEAKER) (test code = [place], 1538) [address]: Grocery Sacker/Techni josephine ID = [id number] for GABE LEE POCT-GLUCOSE [id number] 17:29:00 Test Item Value Reference Range Interpretation Comments POC-GLUCOSE METER 66 mg/dL 70-110 L : Notified RN/MD: TESTED (BEAKER) ([facility] [address] [facility] 1538) [facility], 770 30: Grocery Sacker/Techni josephine ID = [id number] for GABE LEE POCT-GLUCOSE [id number] 12:11:00 Test Item Value Reference Range Interpretation Comments POC-GLUCOSE METER 124 mg/dL 70-110 H : TESTED A T [facility] 6720 ([facility]) (test code = [facility], 1538) 86631: Grocery Sacker/Techni josephine ID = [id number] for GABE MILLS POCT-GLUCOSE [id number] 08:07:00 Test Item Value Reference Range Interpretation Comments POC-GLUCOSE METER 141 mg/dL 70-110 H : TESTED A T [facility] 6720 (BEAKER) (test code = [facility], 1538) [address]: Grocery Sacker/Techni josephine ID = [id number] for GABE MILLS BASIC METABOLIC [id number] 06:56:00 Test Item Value Reference Range Interpretation [...] S NOT APPLICABLE FOR DIALYSIS PATIEN TS. Grocery Sacker ID - SUE [id number] 06:56:00 Test Item Value Reference Range Interpretation Comments MAGNESIUM (BEAKER) (test code = 1.8 mg/dL 1.6-2.6 627) Grocery Sacker ID - SUE LCBC (HEMOGRAM ONLY)2020-05-16 06:35:00 [...] 0-0 (BEAKER) (test code = 413) POCT-GLUCOSE [id number] 21:25:00 Test Item Value Reference Range Interpretation Comments POC-GLUCOSE METER 253 mg/dL 70-110 H : TESTED A T [facility] 6720 (BEAKER) (test code = [place], 1538) 574[address]: Grocery Sacker/Techni josephine ID = [id number] for CARLOTA GUTHRIEO POCT-GLUCOSE [id number] 17:11:00 Test Item Value Reference Range Interpretation Comments POC-GLUCOSE METER 310 mg/dL 70-110 H : TESTED A T [facility] 6720 (BEAKER) (test code = [place], 1538) [address]: Grocery Sacker/Techni josephine ID = [id number] for Lindsay Cid BASIC METABOLIC [id number] 11:51:00 Test Item Value Reference Range Interpretation [...] S NOT APPLICABLE FOR DIALYSIS PATIEN TS. Grocery Sacker ID - PATRICIA [id number] 11:51:00 Test Item Value Reference Range Interpretation Comments MAGNESIUM (BEAKER) (test code = 1.7 mg/dL 1.6-2.6 627) Grocery Sacker ID - PATRICIA CCBC (HEMOGRAM ONLY)2020-05-15 11:26:00 [...] 0-0 (BEAKER) (test code = 413) POCT-GLUCOSE [id number] 07:40:00 Test Item Value Reference Range Interpretation Comments POC-GLUCOSE METER 223 mg/dL 70-110 H : TESTED A T [facility] 6720 (BEAKER) (test code = [facility], 1538) 47015: Grocery Sacker/Techni josephine ID = [id number] for Palak, Lindsay POCT-GLUCOSE [id number] 22:08:00 Test Item Value Reference Range Interpretation Comments POC-GLUCOSE METER 148 mg/dL 70-110 H : TESTED A T [facility] 6720 (BEAKER) (test code = [facility], 153) 81349: Grocery Sacker/Techni josephine ID = [id number] for Le rma, Debbie POCT-GLUCOSE [id number] 16:01:00 Test Item Value Reference Range Interpretation Comments POC-GLUCOSE METER 189 mg/dL 70-110 H : TESTED A T [facility] 6720 (BEAKER) (test code = [facility], 153) 45350: Grocery Sacker/Techni josephine ID = [id number] for Palak, Lindsay SARS-COV2/RT-PCR ([facility])2020-05-14 16:01:00 Test Item Value Reference Range Interpretation Comments SARS-COV2/RT-PCR (test Negative Not Detected, Negative, code = 7833423) See external report for linked test SARS-COV-[address] [facility] (test code = 2017259) Negative result for this test determines that [...] justifying the authorization of the emergency use ofin vitro diagnostic tests for detection and/or diagnosis of COVID-19 is terminated under Section 564(b)(2) of the Act or the EUA is revoked under Section 564(g) of the Act.Testing was performed using the Bello SARS-CoV-2 assay.Fact Sheet for Healthcare Providers:https://www.Payfirma.bello/robyn/RT_SAR J-IwP-2_LFI_Wphr_Hvbhh_51-246178.pdfFact Sheet for Healthcare Patients:https://www.[employer].bello/s al/SK_UPXN-DuV-6_Sbkjwzi_Fgsn_Foesj_PJ_66-132886N0.pdfPerforming Laboratory:[facility] [place] [address] RAD, CHEST, 1 VIEW, NON [id number] 15:49:00Reason for exam:->chest painShould this be performed at the bedside?->Yes [facility] 1950 Sex: MFINAL REPORT CLINICAL HISTORY: chest pain TECHNIQUE: 1 view of the chest. COMPARISON: 05/13/2020 IMPRESSION: There is no definitive evidence for pneumothorax. Bilateral lower lung opacities have decreased. A small left pleural effusion appears decreased. The cardiomediastinal silhouette is m agnified by technique with sternotomy wires. Signed: Elaine Boogie MDReport Verified Date/Time: 05/14/2020 15:49:04 Reading Location: [facility] Radiology Reading Room CBC (HEMOGRAM ONLY)2020-05-14 13:33:00 Test Item Value Reference [...] 0-0 (BEAKER) (test code = 413) POCT-GLUCOSE [id number] 12:50:00 Test Item Value Reference Range Interpretation Comments POC-GLUCOSE METER 179 mg/dL 70-110 H : TESTED A T [facility] 6720 (BEAKER) (test code = [facility], 1538) 89[address]: Grocery Sacker/Techni josephine ID = [id number] for Palak Lindsay BASIC METABOLIC [id number] 11:45:00 Test Item Value Reference Range Interpretation [...] S NOT APPLICABLE FOR DIALYSIS PATIEN TS. Grocery Sacker ID - NADINEGPOCT-GLUCOSE [id number] 08:00:00 Test Item Value Reference Range Interpretation Comments POC-GLUCOSE METER 211 mg/dL 70-110 H : TESTED A T [facility] 6720 (BEAKER) (test code = [facility], 153) 20739: Grocery Sacker/Techni josephine ID = [id number] for Palak, Lindsay POCT-GLUCOSE [id number] 20:13:00 Test Item Value Reference Range Interpretation Comments POC-GLUCOSE METER 181 mg/dL 70-110 H : TESTED A T [facility] 6720 ([facility]) (test code = [place], 1538) [address]: Grocery Sacker/Techni josephine ID = [id number] for Re yes, Sairy POCT-GLUCOSE [id number] 17:11:00 Test Item Value Reference Range Interpretation Comments POC-GLUCOSE METER 247 mg/dL 70-110 H : TESTED A T [facility] [address] ([facility]) (test code = [place] [facility], 1538) [address]: Grocery Sacker/Techni josephine ID = [id number] for OR KRISTA JOSE MANUEL RAD, CHEST, 1 VIEW, NON [id number] 14:31:00Reason for exam:- >HypoxiaShould this be performed at the bedside?->Yes [facility] : 1950 Sex: MFINAL REPORT CLINICAL HISTORY: Hypoxia TECHNIQUE: 1 view of the chest. COMPARISON: 05/12/2020 IMPRESSION: There is a trace left apical pneumothorax. Left greater than right lower lung opacities are again seen along with a small left pleural effusion. The cardiomediastinal silhouette is magnified by technique with sternotomy wires. Signed: Elaine Boogieort Verified Date/Time: 05/13/2020 14:31:31 Reading Location: [facility] Radiology Reading Room POCT- GLUCOSE [id number] 12:44:00 Test Item Value Reference Range Interpretation Comments POC-GLUCOSE METER 350 mg/dL 70-110 H : TESTED A T [facility] 6720 (BEAKER) (test code = [facility], 1538) 24877: Grocery Sacker/Techni josephine ID = [id number] for OR PHEY, JOSE MANUEL POCT-GLUCOSE [id number] 07:56:00 Test Item Value Reference Range Interpretation Comments POC-GLUCOSE METER 218 mg/dL 70-110 H : TESTED A T [facility] 6720 (BEAKER) (test code = [facility], 1538) 52245: Grocery Sacker/Techni josephine ID = [id number] for OR PHEY, JOSE MANUEL POCT-GLUCOSE [id number] 21:04:00 Test Item Value Reference Range Interpretation Comments POC-GLUCOSE METER 262 mg/dL 70-110 H : TESTED A T [facility] 6720 (BEAKER) (test code = [facility], 1538) 63464: Grocery Sacker/Techni josephine ID = [id number] for Re yes, Sairy CREATININE, RANDOM [id number] 17:27:00 Test Item Value Reference Range Interpretation Comments CREATININE URINE (BEAKER) (test 119.5 mg/dL code = 375) Reference Range: No NormalsOperator ID - BSSODIUM, RANDOM [id number] 17:27:00 Test Item Value Reference Range Interpretation Comments SODIUM URINE (BEAKER) (test code = 29 meq/L 243) Reference Range: No NormalsOperator ID - BSURINALYSIS W/ REFLEX URINE CULTURE 2020-05-12 17:22:00 Test Item Value Reference Range Interpretation [...] 1585) Many SOURCE(BEAKER) (test code = 2795) Grocery Sacker ID - [auto]Grocery Sacker ID - techOSMOLALITY, [id number] 17:20:00 Test Item Value Reference Range Interpretation Comments OSMOLALITY URINE (BEAKER) (test 744 mOsm/kg 50-1,200 mOsm/kg code = 614) POCT-GLUCOSE [id number] 17:14:00 Test Item Value Reference Range Interpretation Comments POC-GLUCOSE METER 272 mg/dL 70-110 H : [facility] (BEAKER) (test code = [facility], 1538) 65477: Grocery Sacker/Techni josephine ID = [id number] for OR PHEY, JOSE MANUEL POCT-GLUCOSE [id number] 12:37:00 Test Item Value Reference Range Interpretation Comments POC-GLUCOSE METER 341 mg/dL 70-110 H : [facility] (BEAKER) (test code = [facility], 1538) 73419: Grocery Sacker/Techni josephine ID = [id number] for OR PHEY, JOSE MANUEL SARS-COV2/RT-PCR ([facility])2020-05-12 11:22:00 Test Item Value Reference Range Interpretation Comments SARS-COV2/RT-PCR (test Negative Not Detected, Negative, code = 0444827) See external report for linked test SARS-COV-[address] [facility] (test code = 2434893) Negative result for this test determines that [...] justifying the authorization of the emergency use ofin vitro diagnostic tests for detection and/or diagnosis of COVID-19 is terminated under Section 564(b)(2) of the Act or the EUA is revoked under Section 564(g) of the Act.Fact Sheet for Healthcare Prov iders:https://www.[employer].Udex/sites/default/files/product/documents/Fact_Sheet_HC _Wasihdgsx_Dqwj_HUFM-ZvP-2.pdfFact Sheet for Healthcare Patients:https://www.[employer].Udex/sites/default/files/product/docume nts/Dzlf_Mudmo_Hapsgsbq_Fzbo_HPBF-DlU-8.pdfPerforming Laboratory:[facility], [place] [address]IBN, CHEST, 1 VIEW, NON [id number] 10:47:00Reason for exam:->s/p ACBShould this be performed at the bedside?->Yes [facility] : 1950 Sex: MFINAL REPORT CLINICAL HISTORY: s/p ACB TECHNIQUE: 1 view of the chest. COMPARISON: 05/11/2020 IMPRESSION: Left lung base pleural parenchymal opacity is unchanged. There are mildly increased lung markings elsewhere. The cardiomediastinal silhouette is magnified by technique with sternotomy wires. Signed: Elaine Boogie MDReport Verified Date/Time: 05/12/2020 10:47:12 Reading Location: [facility] Radiology Reading Room COMPREHENSIVE METABOLIC [id number] 10:24:00 Test Item Value Reference Range Interpretation [...] S NOT APPLICABLE FOR DIALYSIS PATIEN TS. Grocery Sacker ID - PATRICIA [id number] 10:13:00 Test Item Value Reference Range Interpretation Comments CORTISOL, TOTAL (BEAKER) (test 16.9 ug/dL 3.7-19.4 code = 2755) Grocery Sacker ID - PATRICIA CCBC (HEMOGRAM ONLY)2020-05-12 09:43:00 [...] 0-0 (BEAKER) (test code = 413) POCT-GLUCOSE [id number] 07:33:00 Test Item Value Reference Range Interpretation Comments POC-GLUCOSE METER 282 mg/dL 70-110 H : TESTED A T [facility] 6720 (BEAKER) (test code = [facility], 1538) 10555: Grocery Sacker/Techni josephine ID = [id number] for OR JOSE MANUEL VELASCO CALCIUM, [id number] 05:09:00 Test Item Value Reference Range Interpretation Comments CALCIUM IONIZED (BEAKER) (test 1.09 mmol/L 1.12-1.27 L code = 698) PH, BLOOD ([facility]) (test code = 7.41 1810) Check serum Ionized Calcium level after 4 hours after IV Calcium replacement. POCT-GLUCOSE [id number] 21:31:00 Test Item Value Reference Range Interpretation Comments POC-GLUCOSE METER 330 mg/dL 70-110 H : TESTED A T [facility] 6720 (BEAKER) (test code = [facility], 1538) 34891: Grocery Sacker/Techni josephine ID = [id number] for RO CARLOTA DEEO POCT-GLUCOSE [id number] 17:53:00 Test Item Value Reference Range Interpretation Comments POC-GLUCOSE METER 279 mg/dL 70-110 H : TESTED A T [facility] 6720 (AKER) (test code = [facility], 1538) 26162: Grocery Sacker/Techni josephine ID = [id number] for Lindsay Cid RAD, CHEST, 1 VIEW, NON [id number] 13:06:00Reason for exam:->post-chest tube removalShould this be performed at the bedside?->Yes [facility] : 1950 Sex: MFINAL REPORT CLINICAL HISTORY: post-chest tube removal TECHNIQUE: 1 view of the chest. COMPARISON: 05/10/2020 IMPRESSION: The supporting lines and tubes have been removed. There is no pneumothorax. Left lower lung pleural parenchymal opacity has decreased. There is no focal right lung consolidation. The cardiomediastinal silhouette is magnified by technique with sternotomy wires. Signed: Elaine Boogie MDReport Verified Date/Time: 05/11/2020 13:06:14 Reading Location: [facility] Radiology Reading Room POCT-GLUCOSE [id number] 12:37:00 Test Item Value Reference Range Interpretation Comments POC-GLUCOSE METER 291 mg/dL 70-110 H : TESTED A T [facility] 6720 (BEAKER) (test code = [employer] [facility], 1538) 08682: Grocery Sacker/Techni josephine ID = [id number] for Mindy Winkler mra POCT-GLUCOSE [id number] 12:37:00 Test Item Value Reference Range Interpretation Comments POC-GLUCOSE METER 257 mg/dL 70-110 H : TESTED A T [facility] 6720 (BEAKER) (test code = [employer] [facility], 1538) 98976: Grocery Sacker/Techni josephine ID = [id number] for GABE MILLS BASIC METABOLIC [id number] 06:27:00 Test Item Value Reference Range Interpretation [...] S NOT APPLICABLE FOR DIALYSIS PATIEN TS. Grocery Sacker ID - [id number] 06:22:00 Test Item Value Reference Range Interpretation Comments MAGNESIUM (BEAKER) (test code = 2.2 mg/dL 1.6-2.6 627) Grocery Sacker ID - [id number] 06:22:00 Test Item Value Reference Range Interpretation Comments PHOSPHORUS (BEAKER) (test code = 2.4 mg/dL 2.3-4.7 604) Grocery Sacker ID - EDASICALCIUM, [id number] 05:51:00 Test Item Value Reference Range Interpretation [...] 0-0 CELLS (BEAKER) (test code = 413) POCT-GLUCOSE [id number] 21:34:00 Test Item Value Reference Range Interpretation Comments POC-GLUCOSE METER 190 mg/dL 70-110 H : TESTED A T [facility] 6720 (BEAKER) (test code = [facility], 1538) [address]: Grocery Sacker/Techni josephine ID = [id number] for ROSS GUTHRIE POCT-GLUCOSE [id number] 16:44:00 Test Item Value Reference Range Interpretation Comments POC-GLUCOSE METER 129 mg/dL 70-110 H : TESTED A T [facility] 6720 ([facility]) (test code = [facility], 1538) [address]: Grocery Sacker/Techni josephine ID = [id number] for Sara Herring CALCIUM, [id number] 14:52:00 Test Item Value Reference Range Interpretation Comments CALCIUM IONIZED (BEAKER) (test 1.11 mmol/L 1.12-1.27 L code = 698) PH, BLOOD (BEAKER) (test code = 7.35 1810) POCT-GLUCOSE [id number] 12:03:00 Test Item Value Reference Range Interpretation Comments POC-GLUCOSE METER 205 mg/dL 70-110 H : TESTED A T [facility] 6720 (BEAKER) (test code = [facility], 1538) [address]: Grocery Sacker/Techni josephine ID = [id number] for Sara Herring PLATELET AGGREGATION: FUNCTION [id number] 10:23:00 Test Item Value Reference Range Interpretation Comments [id number] Ted Lynch MD (BEAKER) (test code = (electronic 2622) signature) PLATELET COUNT AGG 275 K/CU MM 150-430 (BEAKER) (test code = 0376) ADP (BEAKER) (test code 68 % 62-100 = 2417) PLATELET RICH 297 k/cu mm 200-300 PLASMA(BEAKER) (test code = 2132) PLATELET FUNCTION SCREEN Normal aggregation INTERPRETATION (BEAKER) results with ADP. No (test code = 3760) evidence of platelet dysfunction or P2Y12 inhibitor effect. Platelet Function Screen results may be falsely low with platelet counts<75,000/cu mm.PLATELET [id number] 09:01:00 Test Item Value Reference Range Interpretation Comments PLATELET COUNT (BEAKER) (test 160 K/CU MM 150-450 code = 756) Grocery Sacker ID - [id number] ID - [id number] ID - [id number] 08:44:00 Test Item Value Reference Range Interpretation Comments PARTIAL THROMBOPLASTIN TIME 75.3 seconds 22.5-36.0 H (BEAKER) (test code = 760) [id number] 08:42:00 Test Item Value Reference Range Interpretation Comments FIBRINOGEN LEVEL (BEAKER) (test 427 mg/dl 225-434 code = 658) PROTHROMBIN [id number] 08:41:00 Test Item Value Reference Range Interpretation [...] is 2.5-3.5 for patients wiht mechanical heart valves.POCT-GLUCOSE [id number] 08:19:00 Test Item Value Reference Range Interpretation Comments POC-GLUCOSE METER 183 mg/dL 70-110 H : TESTED A T [facility] 6720 (BEAKER) (test code = [place], 1538) [address]: Grocery Sacker/Techni josephine ID = [id number] for Sara Herring BASIC METABOLIC [id number] 04:49:00 Test Item Value Reference Range Interpretation [...] S NOT APPLICABLE FOR DIALYSIS PATIEN TS. Grocery Sacker ID - [id number] 04:44:00 Test Item Value Reference Range Interpretation Comments MAGNESIUM (BEAKER) (test code = 2.3 mg/dL 1.6-2.6 627) Grocery Sacker ID - [id number] 04:44:00 Test Item Value Reference Range Interpretation Comments PHOSPHORUS (BEAKER) (test code = 2.8 mg/dL 2.3-4.7 604) Grocery Sacker ID - EDASICALCIUM, [id number] 04:25:00 Test Item Value Reference Range Interpretation Comments CALCIUM IONIZED (BEAKER) (test 1.02 mmol/L 1.12-1.27 L code = 698) PH, BLOOD (BEAKER) (test code = 7.41 1810) Check serum Ionized Calcium level after 4 hours after IV Calcium replacement.Check serum Ionized Calcium level after 4 hours after IV Calcium replacement.CBC W/PLT COUNT & AUTO [id number] 04:23:00 Test Item Value Reference Range Interpretation [...] (BEAKER) (test code = 2801) BLOOD GAS, [id number] 04:22:00 Test Item Value Reference Range Interpretation [...] 1819) 36.0 RAD, CHEST, 1 VIEW, NON [id number] 01:32:00Reason for exam:->s/p ACBShould this be performed at the bedside?->Yes [facility] 1950 Sex: MFINAL REPORT Chest one view. Clinical history: s/p ACB Comparison: Chest radiograph 05/09/2020. Technique: A single frontal view of the chest was obtained. Findings: There has been interval removal of endotracheal and feeding tubes. Other support lines and tubes are in satisfactory positions.The patient is status post median sternotomy and CABG. There are airspace opacities in the left lung base which may represent atelectasis and/or pneumonia. A small left pleural effusion may be present. There is no pulmonary edema or pneumothorax.The cardiomediastinal contours are stable. Signed: Ja Nichols Verified Date/Time: 05/10/2020 01:32:03 [id number] 21:38:00 Test Item Value Reference Range Interpretation Comments MAGNESIUM (BEAKER) 2.5 mg/dL 1.6-2.6 Specimen slightly (test code = 627) hemolyzed Grocery Sacker ID - [id number] 21:38:00 Test Item Value Reference Range Interpretation Comments PHOSPHORUS (BEAKER) 3.1 mg/dL 2.3-4.7 Specimen slightly (test code = 604) hemolyzed Grocery Sacker ID - EDASIBASIC METABOLIC [id number] 21:38:00 Test Item Value Reference Range Interpretation [...] S NOT APPLICABLE FOR DIALYSIS PATIEN TS. Grocery Sacker ID - EDASIBLOOD GAS, [id number] 21:20:00 Test Item Value Reference Range Interpretation Comments PH ARTERIAL (BEAKER) 7.43 7.35-7.45 (test code = 383) PCO2 ARTERIAL (BEAKER) 43 mm Hg 35-45 (test code = 384) PO2 ARTERIAL (BEAKER) 143 mm Hg 80-90 H This i s a corrected (test code = 385) result. Pr evious result was 144 mm Hg on 05/09/2020 a t 2117 VAT SKIMMER O2 SATURATION ARTERIAL 98.9 % 96.0-97.0 H (BEAKER) (test code = 386) HCO3 ARTERIAL (BEAKER) 28 mmol/L 21-29 (test code = 388) BASE EXCESS ARTERIAL 3.1 mmol/L -2.0-3.0 H (BEAKER) (test code = 387) PATIENT TEMPERATURE 36.8 This is a corrected (BEAKER) (test code = result . Previous 1817) result was 37.0 on 05/09/2020 at 2 117 [employer] SK[employer]MER FIO2 (BEAKER) (test 36.0 This is a corrected code = 1819) result. Previou s result was 100. 0 on 05/09/2020 at 2 117 [employer] SKIMMER HGB/HCT (H&H) - STAT [id number] 21:17:00 Test Item Value Reference Range Interpretation Comments HEMOGLOBIN (BEAKER) (test code = 11.5 GM/DL 13.0-16.8 L 410) HEMATOCRIT (BEAKER) (test code = 34.0 % 40.0-50.0 L 411) CALCIUM, [id number] 21:17:00 Test Item Value Reference Range Interpretation Comments CALCIUM IONIZED (BEAKER) (test 1.01 mmol/L 1.12-1.27 L code = 698) PH, BLOOD (BEAKER) (test code = 7.43 0) GLUCOSE-STAT [id number] 21:16:00 Test Item Value Reference Range Interpretation Comments GLUCOSE RANDOM (BEAKER) (test code 108 mg/dL 70-110 = 652) SODIUM NA-STAT [id number] 21:16:00 Test Item Value Reference Range Interpretation Comments SODIUM (BEAKER) (test code = 381) 135 meq/L 136-145 L POTASSIUM-STAT [id number] 21:16:00 Test Item Value Reference Range Interpretation Comments POTASSIUM (BEAKER) (test code = 3.8 meq/L 3.6-5.5 379) POCT-GLUCOSE [id number] 20:20:00 Test Item Value Reference Range Interpretation Comments POC-GLUCOSE METER 88 mg/dL 70-110 : TESTED A T [facility] 6720 (BEAKER) (test code = [place], 1538) [address]: Grocery Sacker/Techni josephine ID = [id number] for FRANCK ENMODEG BLOOD GAS, [id number] 19:23:00 Test Item Value Reference Range Interpretation [...] (BEAKER) (test code = 1819) 40.0 POCT-GLUCOSE [id number] 18:59:00 Test Item Value Reference Range Interpretation Comments POC-GLUCOSE METER 134 mg/dL 70-110 H : Notified RN/MD: ([facility]) (test code = TESTED AT [facility] 6720 1538) [facility], [address]: Grocery Sacker/Techni ojsephine ID = [id number] for STUART ACEVES POCT-GLUCOSE [id number] 16:41:00 Test Item Value Reference Range Interpretation Comments POC-GLUCOSE METER 211 mg/dL 70-110 H : TESTED A T [facility] 67 ([facility]) (test code = [facility], 1538) [address]: Grocery Sacker/Techni josephine ID = [id number] for STUART ACEVES BASIC METABOLIC [id number] 16:12:00 Test Item Value Reference Range Interpretation [...] S NOT APPLICABLE FOR DIALYSIS PATIEN TS. Grocery Sacker ID - EDASIRAD, CHEST, 1 VIEW, NON [id number] 16:11:00while patient is intubated or has chest tubes.Reason for exam:->Status post CV SurgeryShould thisbe performed at the bedside?->Yes [facility] : 1950 Sex: MFINAL REPORT AP view of the chest dated 05/09/2020 COMPARISON: May 06, 2020 CLINICALINFORMATION: Status post CV Surgery Comment: Patient is status post sternotomy. Heart is normal in size. Subsegmental atelectasis is seen in the left lower lobe. The rest of the lungs are clear. Endotracheal tube, mediastinal tube, nasogastric tube, right IJ centimeters catheter, and right chest tube present. No pneumothorax is seen. Signed: My Patrick Verified Date/Time: 05/09/2020 16:11:13 Reading Location: [address] Body Reading Room Electronically signed by: MY PATRICK M.D. on05/09/2020 04:11 PM [id number] 16:02:00 Test Item Value Reference Range Interpretation Comments MAGNESIUM (BEAKER) (test code = 1.7 mg/dL 1.6-2.6 627) Grocery Sacker ID - [id number] 16:02:00 Test Item Value Reference Range Interpretation Comments PHOSPHORUS (BEAKER) (test code = 1.7 mg/dL 2.3-4.7 L 604) Grocery Sacker ID - [id number] 15:57:00 Test Item Value Reference Range Interpretation Comments PARTIAL THROMBOPLASTIN TIME 67.0 seconds 22.5-36.0 H (BEAKER) (test code = 760) LACTIC ACID, [id number] 15:57:00 Test Item Value Reference Range Interpretation Comments LACTATE BLOOD 0.7 mmol/L 0.5-2.2 Specimen sligh tly ARTERIAL (2) (BEAKER) hemoly zed (test code = 2874) Grocery Sacker ID - EDASIPROTHROMBIN [id number] 15:56:00 Test Item Value Reference Range Interpretation [...] is 2.5-3.5 for patients wiht mechanical heart valves.CBC W/PLT COUNT & AUTO [id number] 15:42:00 Test Item Value Reference Range Interpretation [...] (BEAKER) (test code = 2801) BLOOD GAS, [id number] 15:38:00 Test Item Value Reference Range Interpretation [...] (BEAKER) (test code = 1819) 50.0 CALCIUM, [id number] 15:38:00 Test Item Value Reference Range Interpretation Comments CALCIUM IONIZED (BEAKER) (test 1.04 mmol/L 1.12-1.27 L code = 698) PH, BLOOD (BEAKER) (test code = 7.59 1810) OXYGEN SATURATION, [id number] 15:37:00 Test Item Value Reference Range Interpretation Comments O2 SATURATION (MEASURED) (BEAKER) 64.4 % (test code = 1455) CBC W/PLT COUNT & AUTO [id number] 15:33:00 Test Item Value Reference Range Interpretation [...] 0-1 PERCENT (BEAKER) (test code = 2801) [id number] 14:50:00 Test Item Value Reference Range Interpretation Comments MAGNESIUM (BEAKER) (test code = 1.9 mg/dL 1.6-2.6 627) Grocery Sacker ID - [id number] 14:50:00 Test Item Value Reference Range Interpretation Comments PHOSPHORUS (BEAKER) (test code = 2.4 mg/dL 2.3-4.7 604) Grocery Sacker ID - [id number] 14:42:00 Test Item Value Reference Range Interpretation Comments ACTIVATED CLOTTING TIME 125 sec : 74 -137 seconds, (BEAKER) (test code = Baseli ne: TESTED AT 441) [address], [facility] 30: Grocery Sacker/Techni josephine ID = [id number] for LORI, EDWAR N [id number] 14:42:00 Test Item Value Reference Range Interpretation Comments ACTIVATED CLOTTING TIME 466 sec : 74 -137 seconds, (BEAKER) (test code = Baseli ne: TESTED AT 441) [address], [facility] 30: Grocery Sacker/Techni josephine ID = [id number] for LORI, EDWAR N [id number] 14:42:00 Test Item Value Reference Range Interpretation Comments ACTIVATED CLOTTING TIME 593 sec : 74 -137 seconds, (BEAKER) (test code = Baseli ne: TESTED AT 441) [address], [facility] 30: Grocery Sacker/Techni josephine ID = [id number] for YOUNGMARY ANN, EDWAR N [id number] 14:42:00 Test Item Value Reference Range Interpretation Comments ACTIVATED CLOTTING TIME 577 sec : 74 -137 seconds, (BEAKER) (test code = Baselyamileth ne: TESTED AT 441) [facility] 6720 [facility], 770 30: Grocery Sacker/Techni josephine ID = [id number] for EDWAR SANDOVAL [id number] 14:41:00 Test Item Value Reference Range Interpretation Comments ACTIVATED CLOTTING TIME 538 sec : 74 -137 seconds, (BEAKER) (test code = Ember ne: TESTED AT 441) [facility] 6720 [facility], 770 30: Grocery Sacker/Techni josephine ID = [id number] for EDWAR SANDOVAL [id number] 14:02:00 Test Item Value Reference Range Interpretation Comments FIBRINOGEN LEVEL (BEAKER) (test 317 mg/dl 225-434 code = 658) [id number] 14:02:00 Test Item Value Reference Range Interpretation [...] is 2.5-3.5 for patients wiht mechanical heart valves.PLATELET [id number] 13:59:00 Test Item Value Reference Range Interpretation Comments PLATELET COUNT (BEAKER) (test code 94 K/CU MM 150-450 L = 756) Grocery Sacker ID - 6000BLOOD GAS, [id number] 13:47:00 Test Item Value Reference Range Interpretation [...] (test code = 1819) 100.0 SODIUM NA-STAT [id number] 13:47:00 Test Item Value Reference Range Interpretation Comments SODIUM (BEAKER) (test code = 381) 131 meq/L 136-145 L GLUCOSE-STAT [id number] 13:47:00 Test Item Value Reference Range Interpretation Comments GLUCOSE RANDOM (BEAKER) (test code 258 mg/dL 70-110 H = 652) HGB/HCT (H&H) - STAT [id number] 13:47:00 Test Item Value Reference Range Interpretation Comments HEMOGLOBIN (BEAKER) (test code = 8.8 GM/DL 13.0-16.8 L 410) HEMATOCRIT (BEAKER) (test code = 26.0 % 40.0-50.0 L 411) POTASSIUM-STAT [id number] 13:46:00 Test Item Value Reference Range Interpretation Comments POTASSIUM (BEAKER) (test code = 4.3 meq/L 3.6-5.5 379) POTASSIUM-STAT [id number] 13:17:00 Test Item Value Reference Range Interpretation Comments POTASSIUM (BEAKER) (test code = 4.7 meq/L 3.6-5.5 379) BLOOD GAS, [id number] 13:17:00 Test Item Value Reference Range Interpretation [...] (test code = 1819) 60.0 SODIUM NA-STAT [id number] 13:17:00 Test Item Value Reference Range Interpretation Comments SODIUM (BEAKER) (test code = 381) 132 meq/L 136-145 L GLUCOSE-STAT [id number] 13:17:00 Test Item Value Reference Range Interpretation Comments GLUCOSE RANDOM (BEAKER) (test code 266 mg/dL 70-110 H = 652) HGB/HCT (H&H) - STAT [id number] 13:17:00 Test Item Value Reference Range Interpretation Comments HEMOGLOBIN (BEAKER) (test code = 9.1 GM/DL 13.0-16.8 L 410) HEMATOCRIT (BEAKER) (test code = 27.0 % 40.0-50.0 L 411) GLUCOSE-STAT [id number] 12:55:00 Test Item Value Reference Range Interpretation Comments GLUCOSE RANDOM (BEAKER) (test code 266 mg/dL 70-110 H = 652) SODIUM NA-STAT [id number] 12:55:00 Test Item Value Reference Range Interpretation Comments SODIUM (BEAKER) (test code = 381) 127 meq/L 136-145 L HGB/HCT (H&H) - STAT [id number] 12:55:00 Test Item Value Reference Range Interpretation Comments HEMOGLOBIN (BEAKER) (test code = 9.2 GM/DL 13.0-16.8 L 410) HEMATOCRIT (BEAKER) (test code = 27.0 % 40.0-50.0 L 411) BLOOD GAS, [id number] 12:55:00 Test Item Value Reference Range Interpretation [...] (BEAKER) (test code = 1819) 50.0 POTASSIUM-STAT [id number] 12:54:00 Test Item Value Reference Range Interpretation Comments POTASSIUM (BEAKER) (test code = 5.2 meq/L 3.6-5.5 379) BLOOD GAS, [id number] 12:14:00 Test Item Value Reference Range Interpretation [...] (test code = 1819) 60.0 BLOOD GAS, [id number] 12:14:00 Test Item Value Reference Range Interpretation [...] (test code = 1819) 60.0 SODIUM NA-STAT [id number] 12:14:00 Test Item Value Reference Range Interpretation Comments SODIUM (BEAKER) (test code = 381) 131 meq/L 136-145 L GLUCOSE-STAT [id number] 12:14:00 Test Item Value Reference Range Interpretation Comments GLUCOSE RANDOM (BEAKER) (test code 257 mg/dL 70-110 H = 652) HGB/HCT (H&H) - STAT [id number] 12:14:00 Test Item Value Reference Range Interpretation Comments HEMOGLOBIN (BEAKER) (test code = 8.0 GM/DL 13.0-16.8 L 410) HEMATOCRIT (BEAKER) (test code = 24.0 % 40.0-50.0 L 411) POTASSIUM-STAT [id number] 12:13:00 Test Item Value Reference Range Interpretation Comments POTASSIUM (BEAKER) (test code = 4.7 meq/L 3.6-5.5 379) BLOOD GAS, [id number] 10:48:00 Test Item Value Reference Range Interpretation [...] (test code = 1819) 100.0 SODIUM NA-STAT [id number] 10:48:00 Test Item Value Reference Range Interpretation Comments SODIUM (BEAKER) (test code = 381) 132 meq/L 136-145 L GLUCOSE-STAT [id number] 10:48:00 Test Item Value Reference Range Interpretation Comments GLUCOSE RANDOM (BEAKER) (test code 203 mg/dL 70-110 H = 652) HGB/HCT (H&H) - STAT [id number] 10:48:00 Test Item Value Reference Range Interpretation Comments HEMOGLOBIN (BEAKER) (test code = 9.0 GM/DL 13.0-16.8 L 410) HEMATOCRIT (BEAKER) (test code = 26.0 % 40.0-50.0 L 411) POTASSIUM-STAT [id number] 10:47:00 Test Item Value Reference Range Interpretation Comments POTASSIUM (BEAKER) (test code = 3.5 meq/L 3.6-5.5 L 379) CBC W/PLT COUNT & AUTO [id number] 08:57:00 Test Item Value Reference Range Interpretation [...] (BEAKER) (test code = 2801) BASIC METABOLIC [id number] 08:52:00 Test Item Value Reference Range Interpretation [...] S NOT APPLICABLE FOR DIALYSIS PATIEN TS. Grocery Sacker ID - EDASIPOCT-GLUCOSE [id number] 07:58:00 Test Item Value Reference Range Interpretation Comments POC-GLUCOSE METER 230 mg/dL 70-110 H : TESTED A T [facility] 6720 (BEAKER) (test code = [place], 1538) [address]: Grocery Sacker/Techni josephine ID = [id number] for OR JOSE MANUEL VELASCO PLATELET AGGREGATION: FUNCTION [id number] 06:17:00 Test Item Value Reference Range Interpretation Comments [id number] Nadege Biswas MD (BEAKER) (test code = (electronic 2622) signature) PLATELET COUNT AGG 202 K/CU MM 150-450 (BEAKER) (test code = 2656) ADP (BEAKER) (test code 63 % 62-100 = 5014) PLATELET RICH 271 k/cu mm 200-300 PLASMA(BEAKER) (test code = 2134) PLATELET FUNCTION SCREEN Normal aggregation INTERPRETATION (BEAKER) results with ADP. No (test code = 4651) evidence of platelet dysfunction or P2Y12 inhibitor effect. Platelet Function Screen results may be falsely low with platelet counts<75,000/cu mm.Grocery Sacker ID- 6000POCT-GLUCOSE [id number] 21:26:00 Test Item Value Reference Range Interpretation Comments POC-GLUCOSE METER 270 mg/dL 70-110 H : TESTED A T [facility] 6720 (BEAKER) (test code = [facility], 153) [address]: Grocery Sacker/Techni josephine ID = [id number] for Re yes, Sairy POCT-GLUCOSE [id number] 16:06:00 Test Item Value Reference Range Interpretation Comments POC-GLUCOSE METER 253 mg/dL 70-110 H : TESTED A T [facility] 6720 (BEAKER) (test code = [facility], 1538) [address]: Grocery Sacker/Techni josephine ID = [id number] for Palak, Lindsay POCT-GLUCOSE [id number] 12:24:00 Test Item Value Reference Range Interpretation Comments POC-GLUCOSE METER 183 mg/dL 70-110 H : TESTED A T [facility] 6720 (BEAKER) (test code = [facility], 1538) [address]: Grocery Sacker/Techni josephine ID = [id number] for Palak, Lindsay BASIC METABOLIC [id number] 12:17:00 Test Item Value Reference Range Interpretation [...] S NOT APPLICABLE FOR DIALYSIS PATIEN TS. Grocery Sacker ID - [place] FCBC W/PLT COUNT & AUTO [id number] 11:55:00 Test Item Value Reference Range Interpretation [...] 0-1 PERCENT (BEAKER) (test code = 2801) HEMOGLOBIN [id number] 08:36:00 Test Item Value Reference Range Interpretation Comments HEMOGLOBIN A1C (BEAKER) (test code = 13.8 % 4.3-6.1 H 368) POCT-GLUCOSE [id number] 08:24:00 Test Item Value Reference Range Interpretation Comments POC-GLUCOSE METER 176 mg/dL 70-110 H : TESTED A T [facility] 6720 (BEAKER) (test code = [facility], 1538) [address]: Grocery Sacker/Techni josephine ID = [id number] for Palak, Lindsay POCT-GLUCOSE [id number] 21:13:00 Test Item Value Reference Range Interpretation Comments POC-GLUCOSE METER 300 mg/dL 70-110 H : TESTED A T [facility] 6720 (BEAKER) (test code = [facility], 1538) [address]: Grocery Sacker/Techni josephine ID = [id number] for Re yes, Sairy POCT-GLUCOSE [id number] 17:34:00 Test Item Value Reference Range Interpretation Comments POC-GLUCOSE METER 279 mg/dL 70-110 H : TESTED A T [facility] 6720 (BEAKER) (test code = [facility], 1538) [address]: Grocery Sacker/Techni josephine ID = [id number] for OR JOSE MANUEL VELASCO [id number] 16:35:00 Test Item Value Reference Range Interpretation Comments PARTIAL THROMBOPLASTIN TIME 30.4 seconds 22.5-36.0 (BEAKER) (test code = 760) PROTHROMBIN [id number] 16:34:00 Test Item Value Reference Range Interpretation [...] is 2.5-3.5 for patients wiht mechanical heart valves.LIPID [id number] 16:11:00 Test Item Value Reference Range Interpretation Comments TRIGLYCERIDES (BEAKER) (test code = 129 mg/dL 540) CHOLESTEROL (BEAKER) (test code = 148 mg/dL 631) HDL CHOLESTEROL (BEAKER) (test code 30 mg/dL = 976) LDL CHOLESTEROL CALCULATED (BEAKER) 92 mg/dL (test code = 633) Triglyceride Reference Range: Low Risk <150 Borderline 150-199 High Risk 200- 499 Very High Risk >=500Cholesterol Reference Range: Low Risk <200 Borderline 200-239 High Risk >240HDL Cholesterol Reference Range: Low Risk >=60 High Risk <40LDL Cholesterol Reference Range: Optimal <100 Near Optimal 100-129 Borderline 130-159 High 160-189 Very High >=190 Grocery Sacker ID - ADMINPOCT-GLUCOSE [id number] 12:53:00 Test Item Value Reference Range Interpretation Comments POC-GLUCOSE METER 129 mg/dL 70-110 H : TESTED A T [facility] 6720 (BEAKER) (test code = [place], 1538) [address]: Grocery Sacker/Techni josephine ID = [id number] for OR JOSE MANUEL VELASCO BASIC METABOLIC [id number] 10:42:00 Test Item Value Reference Range Interpretation [...] S NOT APPLICABLE FOR DIALYSIS PATIEN TS. Grocery Sacker ID - PATRICIA [id number] 10:42:00 Test Item Value Reference Range Interpretation Comments MAGNESIUM (BEAKER) (test code = 1.9 mg/dL 1.6-2.6 627) Grocery Sacker ID - PATRICIA CPLATELET AGGREGATION: FUNCTION [id number] 10:06:00 Test Item Value Reference Range Interpretation Comments [id number] Ted Lynch MD (BEAKER) (test code = (electronic 2622) signature) PLATELET COUNT AGG 156 K/CU MM 150-450 (BEAKER) (test code = 2656) ADP (BEAKER) (test code 54 % 62-100 L = 4654) PLATELET RICH 228 k/cu mm 200-300 PLASMA(BEAKER) (test code = 2134) PLATELET FUNCTION SCREEN Decreased aggregation INTERPRETATION (BEAKER) with ADP which (test code = 7475) indicates platelet dysfunction that may be due to medication effect, uremia, or other platelet function disorders. Clinical correlation is required. Platelet Function Screen results may be falsely low with platelet counts<75,000/cu mm.[employer] ID- [id number]. DIFFICILE GDH [id number] 08:20:00 Test Item Value Reference Range Interpretation Comments CDT TOXIN (test code Negative Negative = [id number]) CDT GDH ANTIGEN (test Negative Negative No ind ication of code = [id number]) Clostridi um difficile infection and n o colonization. Discontinue ent luis felipe isolation and t herapy. Testing performed by [employer] Rapid Cassette Assay. For GDH, published sensitivity of the assay is 98.7% compared to cytotoxicity testing. For Toxin AB, published sensitivity is 87.8% and specificity 99.4% compared to cytotoxicity testing.Verification of kit performance was done by the [facility] prior to clinical use.CBC W/PLT COUNT & AUTO [id number] 06:51:00 Test Item Value Reference Range Interpretation [...] (test code = 2801) RAD, CHEST, 2 [id number] 23:11:00Reason for exam:->pneumoniaShould this be performed at the bedside?->No [facility] 1950 Sex: MFINAL [...] PA and lateral chest radiographs after a courseof treatment to ensure resolution or compare with any recent outside prior exams. Signed: Roseann Winters Verified Date/Time: 05/06/2020 23:11:10 Reading Location: [address] ReadingRoom SARS-COV2/RT-PCR ([facility]) 2020-05-06 22:20:00 Test Item Value Reference Range Interpretation Comments SARS-COV2/RT-PCR (test code Negative Not Detected, Negative, = 3032088) See external report for linked test SARS-COV-[address] [facility] (test code = 5545609) Negative results do not preclude SARS-CoV-2 infection [...] of the Act.Fact Sheet for Healthcare Pro viders:https://www.[employer].Udex/Documents/Xpert%20Xpress%20SARS%20CoV-2/Fact%20Sh eets/3023802%69BCNZ-BSC-2%20HEALTHCARE%20PROVIDERS%20FACT%20SHEET.pdfFact Sheet for Healthcare Patients:https://www.[employer].Udex/Documents/Xpert%20Xpress%20SARS%20CoV-2/Fact%20Sheets/3023801%20SARS-COV -2%20PATIENT%20FACT%20SHEET.pdfPerforming Laboratory:[facility], [place] [address]JIIH-ITCCDKS [id number] 21:15:00 Test Item Value Reference Range Interpretation Comments POC-GLUCOSE METER 326 mg/dL 70-110 H : [facility] (BEAKER) (test code = [facility], 153) [address]: Grocery Sacker/Techni josephine ID = [id number] for ROSS GUTHRIE POCT-GLUCOSE [id number] 18:25:00 Test Item Value Reference Range Interpretation Comments POC-GLUCOSE METER 212 mg/dL 70-110 H : TESTED A T [facility] 6720 (BEAKER) (test code = [facility], 153) 03551: Grocery Sacker/Techni josephine ID = [id number] for GABE MILLS HEMOGLOBIN [id number] 14:50:00 Test Item Value Reference Range Interpretation Comments HEMOGLOBIN A1C (BEAKER) (test code = 13.8 % 4.3-6.1 H 368) POCT-GLUCOSE [id number] 11:52:00 Test Item Value Reference Range Interpretation Comments POC-GLUCOSE METER 231 mg/dL 70-110 H : TESTED A T [facility] 6720 (BEAKER) (test code = [facility], 153) 98638: Grocery Sacker/Techni josephine ID = [id number] for GABE MILLS PLATELET AGGREGATION: FUNCTION [id number] 11:25:00 Test Item Value Reference Range Interpretation Comments [id number] Naedge Biswas MD (BEAKER) (test code = (electronic 3122) signature) PLATELET COUNT AGG 147 K/CU MM 150-450 L (BEAKER) (test code = 9796) ADP (BEAKER) (test code 42 % 62-100 L = 4654) PLATELET RICH 170 k/cu mm 200-300 L PLASMA(BEAKER) (test code = 2134) PLATELET FUNCTION SCREEN Decreased aggregation INTERPRETATION (BEAKER) with ADP which (test code = 8625) indicates platelet dysfunction that may be due to medication effect, uremia, or other platelet function disorders. Clinical correlation is required. Platelet Function Screen results may be falsely low with platelet counts<75,000/cu mm.Grocery Sacker ID- [id number]-GLUCOSE [id number] 09:00:00 Test Item Value Reference Range Interpretation Comments POC-GLUCOSE METER 162 mg/dL 70-110 H : TESTED A T [facility] 6720 (BEAKER) (test code = [facility], 1538) 23644: Grocery Sacker/Techni josephine ID = [id number] for GABE MILLS BASIC METABOLIC [id number] 07:13:00 Test Item Value Reference Range Interpretation [...] S NOT APPLICABLE FOR DIALYSIS PATIEN TS. Grocery Sacker ID - LEVI [id number] 07:13:00 Test Item Value Reference Range Interpretation Comments MAGNESIUM (BEAKER) (test code = 1.8 mg/dL 1.6-2.6 627) Grocery Sacker ID - LEVI [facility]BC W/PLT COUNT & AUTO [id number] 06:25:00 Test Item Value Reference Range Interpretation [...] 0-1 PERCENT (BEAKER) (test code = 2801) POCT-GLUCOSE [id number] 21:11:00 Test Item Value Reference Range Interpretation Comments POC-GLUCOSE METER 223 mg/dL 70-110 H : TESTED A T [facility] 6720 (BEAKER) (test code = [facility] [place] [address]90: Grocery Sacker/Techni josephine ID = [id number] for SORIN NOBLES POCT-GLUCOSE [id number] 17:06:00 Test Item Value Reference Range Interpretation Comments POC-GLUCOSE METER 248 mg/dL 70-110 H : TESTED A T [facility] 6720 (BEAKER) (test code = [place], 1538) [address]: Grocery Sacker/Techni josephine ID = [id number] for GABE MILLS POCT-GLUCOSE [id number] 12:10:00 Test Item Value Reference Range Interpretation Comments POC-GLUCOSE METER 113 mg/dL 70-110 H : TESTED A T [facility] 6720 (BEAKER) (test code = [facility], 1538) 12888: Grocery Sacker/Techni josephine ID = [id number] for GABE MILLS HEMOGLOBIN [id number] 10:27:00 Test Item Value Reference Range Interpretation Comments HEMOGLOBIN A1C (BEAKER) (test code = 14.2 % 4.3-6.1 H 368) BASIC METABOLIC [id number] 06:21:00 Test Item Value Reference Range Interpretation [...] S NOT APPLICABLE FOR DIALYSIS PATIEN TS. Grocery Sacker ID - [id number] 06:21:00 Test Item Value Reference Range Interpretation Comments MAGNESIUM (BEAKER) (test code = 1.7 mg/dL 1.6-2.6 627) Grocery Sacker ID - BSLIPID [id number] 06:21:00 Test Item Value Reference Range Interpretation Comments TRIGLYCERIDES (BEAKER) (test code = 144 mg/dL 540) CHOLESTEROL (BEAKER) (test code = 170 mg/dL 631) HDL CHOLESTEROL (BEAKER) (test code 33 mg/dL = 976) LDL CHOLESTEROL CALCULATED (BEAKER) 108 mg/dL (test code = 633) Triglyceride Reference Range: Low Risk <150 Borderline 150-199 High Risk 200- 499 Very High Risk >=500Cholesterol Reference Range: Low Risk <200 Borderline 200-239 High Risk >240HDL Cholesterol Reference Range: Low Risk >=60 High Risk <40LDL Cholesterol Reference Range: Optimal <100 Near Optimal 100-129 Borderline 130-159 High 160-189 Very High >=190 Grocery Sacker ID - BSCBC W/PLT COUNT & AUTO [id number] 06:00:00 Test Item Value Reference Range Interpretation [...] PERCENT (BEAKER) (test code = 2801) PROTHROMBIN TIME/[id number] 05:50:00 Test Item Value Reference Range Interpretation [...]
[2022-03-08] MEDS ORDERED: NA CHLORIDE 0.9% 500 ML ONE ×2 (11:17→15:16)
[2022-03-08 11:48] LABS: Absolute Lymphocytes (CBC) 0.6 K/uL (0.7-4.9); Hematocrit 35.6 % (39.6-49.0); MCV 92.7 fL (80-100); MPV 7.7 fL (7.6-11.3); RBC Red Blood Cell Count 3.84 M/uL (4.33-5.43)
[2022-03-08 12:05] LABS: Albumin 3.9 g/dL (3.4-5.0); Bilirubin Total 0.5 mg/dL (0.2-1.0); Potassium 3.9 mmol/L (3.5-5.1); Protein, Total 7.7 g/dL (6.4-8.2)
--- NOTE | 2022-03-08 12:13 | RAD REPORT ---
EXAM DESCRIPTION: RAD - Chest Single View - 03/08/2022 11:53 am CLINICAL HISTORY: FEVER COMPARISON: Portable study 08/27/2020 TECHNIQUE: AP portable chest image was obtained 03/08/2022 11:53 am . FINDINGS: No large or dense consolidation identifiable. There is some patchy interstitial and alveol ar opacification in the right upper lobe. The prior study demonstrated a right upper lobe pneumonia. The current findings could be a small recurrent pneumonia in this region. The possibility of postinfe ctious scarring as a source for the opacification possible as well. Sternotomy wires are in place. Trachea is midline. Heart and vasculature are normal. No measurable pl eural effusion and no pneumothorax. No acute bony abnormality seen. No acute aortic findings suspecte d. IMPRESSION: Patchy right upper lobe opacification is present. This could be a small pneumonia or pos sibly remnant scarring from a prior pneumonia in this region August 2020.
--- NOTE | 2022-03-08 15:24 | ER ---
Nurse's Notes [facility] Name: Scott Mederos Age: 71 yrs Sex: Male : 1950 Arrival Date: 03/08/2022 Time: 10:34 Bed 8 Private MD: Diagnosis: Coronavirus infection, unspecified Presentation: 03/08 10:34 Chief complaint: EMS states: pt from home. tested + for COVID approx 1 week ago. fever tw2 of 101.5 and chills. pt c/o feeling weak. we gave 1 gm Tylenol PO GRANT MANAGER. BGL 204 mg/dL. Coronavirus screen: fatigue, fever, Client presents with at least one sign or symptom that may indicate coronavirus-19. Standard/surgical mask placed on the client. Provider contacted for isolation considerations. Ebola Screen: Patient denies travel to an Ebola-affected area in the 21 days before illness onset. Initial Sepsis Screen: Does the patient meet any 2 criteria? HR > 90 bpm. No. Patient's initial sepsis screen is negative. Does the patient have a suspected source of infection? No. Patient's initial sepsis screen is negative. Risk Assessment: Do you want to hurt yourself or someone else? Patient reports no desire to harm self or others. Onset of symptoms was March 08, 2022. Care prior to arrival: Medication(s) given: Tylenol, 1000 mg. 10:34 Method Of Arrival: EMS: [facility] tw2 10:34 Acuity: LUIS 3 tw2 10:52 Initial Sepsis Screen: Does the patient meet any 2 criteria?. tw2 Triage Assessment: 10:34 General: Appears in no apparent distress. well groomed, Behavior is calm, cooperative, tw2 appropriate for age. Pain: Denies pain. Neuro: Reports weakness and fatigue. Cardiovascular: Patient's skin is warm and dry. Respiratory: Airway is patent Respiratory effort is even, unlabored, Respiratory pattern is regular, symmetrical. GI: No signs and/or symptoms were reported involving the gastrointestinal system. Derm: Reports fever with chills. Musculoskeletal: Reports weakness in "all over, i just cant sit up". Historical: - Allergies: 10:37 acyclovir; tw2 10:37 Demerol; tw2 10:37 meperidine; tw2 10:37 Vancomycin; tw2 10:37 tramadol; tw2 - Home Meds: 10:37 levothyroxine 125 mcg oral cap [Active]; donepezil 10 mg oral tab 1 tab once daily tw2 [Active]; pantoprazole 40 mg oral grps 1 packet once daily [Active]; mirtazapine 45 mg Oral tab once daily [Active]; fludrocortisone 0.1 mg oral tab 1 tab once daily [Active]; midodrine 10 mg Oral tab 3 times per day [Active]; trazodone 150 mg Oral tab nightly [Active]; liothyronine 5 mcg Oral tab once daily [Active]; gabapentin 600 mg Oral tab 3 times per day [Active]; memantine 10 mg oral tab 1 tab 2 times per day [Active]; Aptiom 400 mg oral tab 1 tab once daily [Active]; ferrous sulfate 325 mg (65 mg iron) Oral tab daily [Active]; Eliquis 2.5 mg oral tab 1 tab 2 times per day [Active]; atorvastatin 80 mg oral tab 1 tab once daily [Active]; - PMHx: 10:37 Diabetes - IDDM; Renal Disease; Neck/Throat Cancer; hypotension; Hypertension; GERD; tw2 High Cholesterol; Hypothyroidism; - Immunization history:: Adult Immunizations. - Social history:: Smoking status: . Screenin:51 Abuse screen: Denies threats or abuse. Nutritional screening: No deficits noted. tw2 Tuberculosis screening: No symptoms or risk factors identified. Fall Risk Secondary diagnosis (15 points) impaired mobility. Assessment: 10:52 Reassessment: see triage assessment. tw2 11:37 Reassessment: No changes from previously documented assessment. Patient and/or family tw2 updated on plan of care and expected duration. Pain level reassessed. 12:51 Reassessment: Patient appears in no apparent distress at this time. Patient and/or tw2 family updated on plan of care and expected duration. Pain level reassessed. 13:56 Reassessment: Patient appears in no apparent distress at this time. No changes from tw2 previously documented assessment. Patient and/or family updated on plan of care and expected duration. Pain level reassessed. 14:55 Reassessment: pt states "im ready to go home", provider notified. still pending flu tw2 results. 15:26 Reassessment: provider at bedside going over results with pt and pts spouse at this tw2 time. 16:05 Reassessment: Patient appears in no apparent distress at this time. No changes from tw2 previously documented assessment. Patient and/or family updated on plan of care and expected duration. Pain level reassessed. Vital Signs: 10:34 BP 159 / 62; Pulse 98; Resp 22; Temp 100.6(O); Pulse Ox 95% on R/A; Weight 79.38 kg tw2 (R); Height 6 ft. 0 in. (182.88 cm); 11:32 BP 165 / 100; Pulse 89; Resp 19; Temp 102.3(O); Pulse Ox 98% on R/A; tw2 12:47 BP 128 / 51; Pulse 69; Resp 17; Temp 99.4(O); Pulse Ox 91% on R/A; tw2 12:47 Pulse Ox 97% on 1.5 lpm NC; tw2 13:56 BP 169 / 90; Pulse 71; Resp 17; Pulse Ox 97% on 1.5 lpm NC; tw2 14:54 BP 178 / 84; Pulse 82; Resp 14; Pulse Ox 100% on R/A; tw2 15:47 BP 188 / 78; Pulse 87; Resp 19; Pulse Ox 100% on 1 lpm NC; tw2 10:34 Body Mass Index 23.73 (79.38 kg, 182.88 cm) tw2 11:32 provider notified. tw2 12:47 pt placed on o2 via nc at 1.5 L will continue to monitor, provider notified. tw2 ED Course: 10:34 Patient arrived in ED. tw2 10:34 Bed in low position. Call light in reach. Side rails up X2. Adult w/ patient. Cardiac tw2 monitor on. Pulse ox on. NIBP on. 10:37 Triage completed. tw2 10:38 Jerrod Mei NP is PHCP. pm1 10:38 Marlon Springer MD is Attending Physician. pm1 10:50 Tomeka Kramer RN is Primary Nurse. tw2 10:50 Arm band placed on. tw2 11:28 Missed attempt(s): 20 gauge in right antecubital area. Bleeding controlled, band aid tw2 applied, catheter tip intact. Inserted saline lock: 20 gauge in right antecubital area, using aseptic technique. Blood collected. 11:32 Flu Sent. tw2 11:32 Strep Sent. tw2 11:40 COVID-19 SARS RT PCR (Document "Date of Onset" if Symptomatic) Sent. kc6 11:54 Chest Single View XRAY In Process Unspecified. EDMS 15:27 Awaiting: completion of IV fluids prior to discharge. tw2 16:04 No provider procedures requiring assistance completed. IV discontinued, intact, tw2 bleeding controlled, No redness/swelling at site. Pressure dressing applied. Administered Medications: 11:28 Drug: NS 0.9% 500 ml Route: IV; Rate: bolus; Site: right antecubital; tw2 12:40 Follow up: Response: No adverse reaction; IV Status: Completed infusion; IV Intake: tw2 500ml 15:10 Drug: NS 0.9% 500 ml Route: IV; Rate: bolus; Site: right antecubital; tw2 15:55 Follow up: Response: No adverse reaction; IV Status: Completed infusion; IV Intake: tw2 500ml 15:23 Drug: Rocephin (cefTRIAXone) 1 grams Route: IV; Rate: calculated rate; Site: right tw2 antecubital; 15:26 Follow up: Response: No adverse reaction; IV Status: Completed infusion; IV Intake: [id number] 15:23 Drug: Zithromax (azithromycin) 1 grams Route: PO; tw2 15:55 Follow up: Response: No adverse reaction tw2 Medication: 10:52 VIS not applicable for this client. tw2 Intake: 12:40 IV: 500ml; Total: 500ml. tw2 15:26 IV: 10ml; Total: 510ml. tw2 15:55 IV: 500ml; Total: 1010ml. tw2 Outcome: 15:24 Discharge ordered by MD. pm1 16:04 Discharged to home via wheelchair, with significant other. tw2 16:04 Condition: stable 16:04 Discharge instructions given to patient, significant other, Instructed on discharge instructions, follow up and referral plans. medication usage, Demonstrated understanding of instructions, follow-up care, medications, Prescriptions given X 1. 16:05 Patient left the ED. tw2 Signatures: Dispatcher [employer] EDMS Jerrod Mei NP PENCIL INSPECTOR pm1 Tomeka Kramer RN RN tw2 Fanny Jacobo kc6 Corrections: (The following items were deleted from the chart) 15:26 15:26 Reassessment: provider at bedside going over results at this time. tw2 tw2
--- NOTE | 2022-03-08 15:25 | EDPHYS ---
Physician Documentation [facility] Name: Scott Mederos Age: 71 yrs Sex: Male : 1950 Arrival Date: 03/08/2022 Time: 10:34 Bed 8 Private MD: ED Physician Marlon Springer HPI: 03/08 11:05 This 71 yrs old Male presents to ER via EMS with complaints of Fever, General Weakness. pm1 11:05 The patient reports fever, that was measured at 101.5 degrees Fahrenheit. Onset: The pm1 symptoms/episode began/occurred yesterday. Modifying factors: Took home tests of COVID and result came back positive. Associated signs and symptoms: Pertinent positives: Body aches and generalized weakness, Pertinent negatives: chest pain, cough, headache, shortness of breath. Severity of symptoms: in the emergency department the symptoms are unchanged. The patient has not experienced similar symptoms in the past. The patient has not recently seen a physician. 11:05 Patient reports good p.o. intake of food and fluids. Negative for nausea or vomiting pm1 and diarrhea. Historical: - Allergies: 10:37 acyclovir; tw2 10:37 Demerol; tw2 10:37 meperidine; tw2 10:37 Vancomycin; tw2 10:37 tramadol; tw2 - Home Meds: 10:37 levothyroxine 125 mcg oral cap [Active]; donepezil 10 mg oral tab 1 tab once daily tw2 [Active]; pantoprazole 40 mg oral grps 1 packet once daily [Active]; mirtazapine 45 mg Oral tab once daily [Active]; fludrocortisone 0.1 mg oral tab 1 tab once daily [Active]; midodrine 10 mg Oral tab 3 times per day [Active]; trazodone 150 mg Oral tab nightly [Active]; liothyronine 5 mcg Oral tab once daily [Active]; gabapentin 600 mg Oral tab 3 times per day [Active]; memantine 10 mg oral tab 1 tab 2 times per day [Active]; Aptiom 400 mg oral tab 1 tab once daily [Active]; ferrous sulfate 325 mg (65 mg iron) Oral tab daily [Active]; Eliquis 2.5 mg oral tab 1 tab 2 times per day [Active]; atorvastatin 80 mg oral tab 1 tab once daily [Active]; - PMHx: 10:37 Diabetes - IDDM; Renal Disease; Neck/Throat Cancer; hypotension; Hypertension; GERD; tw2 High Cholesterol; Hypothyroidism; - Immunization history:: Adult Immunizations. - Social history:: Smoking status: . ROS: 11:05 Eyes: Negative for injury, pain, redness, and discharge, ENT: Negative for injury, pm1 pain, and discharge, Cardiovascular: Negative for chest pain, palpitations, and edema, Respiratory: Negative for shortness of breath, cough, wheezing, and pleuritic chest pain, Abdomen/GI: Negative for abdominal pain, nausea, vomiting, diarrhea, and constipation, Back: Negative for injury and pain, : Negative for injury, bleeding, discharge, and swelling, MS/Extremity: Negative for injury and deformity, Skin: Negative for injury, rash, and discoloration, Neuro: Negative for headache, weakness, numbness, tingling, and seizure. 11:05 Constitutional: Positive for body aches, fever, Negative for poor PO intake. 11:05 All other systems are negative. Exam: 11:05 Constitutional: This is a well developed, well nourished patient who is awake, alert, pm1 and in no acute distress. Head/Face: Normocephalic, atraumatic. 11:05 Back: No spinal tenderness. No costovertebral tenderness. Full range of motion. Skin: Warm, dry with normal turgor. Normal color with no rashes, no lesions, and no evidence of cellulitis. MS/ Extremity: Pulses equal, no cyanosis. Neurovascular intact. Full, normal range of motion. 11:05 Eyes: Exam is negative for acute changes, Periorbital structures: appear normal, no acute changes, Pupils: no acute changes, Extraocular movements: no acute changes, Conjunctiva: no acute changes, no injection. 11:05 ENT: Exam is negative for acute changes, Mouth: no acute changes, Lips: normal, moist, Oral mucosa: normal, pink and intact, moist. 11:05 Cardiovascular: Exam negative for acute changes, Rate: normal, Rhythm: regular, Pulses: no pulse deficits are appreciated, Heart sounds: normal, normal S1and S2. 11:05 Respiratory: Exam negative for acute changes, respiratory distress, shortness of breath, Breath sounds: are clear throughout. 11:05 Abdomen/GI: Inspection: abdomen appears normal, Palpation: abdomen is soft and non-tender, in all quadrants. 11:05 Neuro: Exam negative for acute changes, Orientation: is normal, Mentation: is normal, Motor: moves all fours, Sensation: no obvious gross deficits. Vital Signs: 10:34 BP 159 / 62; Pulse 98; Resp 22; Temp 100.6(O); Pulse Ox 95% on R/A; Weight 79.38 kg tw2 (R); Height 6 ft. 0 in. (182.88 cm); 11:32 BP 165 / 100; Pulse 89; Resp 19; Temp 102.3(O); Pulse Ox 98% on R/A; tw2 12:47 BP 128 / 51; Pulse 69; Resp 17; Temp 99.4(O); Pulse Ox 91% on R/A; tw2 12:47 Pulse Ox 97% on 1.5 lpm NC; tw2 13:56 BP 169 / 90; Pulse 71; Resp 17; Pulse Ox 97% on 1.5 lpm NC; tw2 14:54 BP 178 / 84; Pulse 82; Resp 14; Pulse Ox 100% on R/A; tw2 15:47 BP 188 / 78; Pulse 87; Resp 19; Pulse Ox 100% on 1 lpm NC; tw2 10:34 Body Mass Index 23.73 (79.38 kg, 182.88 cm) tw2 11:32 provider notified. tw2 12:47 pt placed on o2 via nc at 1.5 L will continue to monitor, provider notified. tw2 MDM: 10:54 Patient medically screened. pm1 15:21 ED course: Patient is feeling better with NS 500 mL bolus. Will give the patient pm1 additional IV fluids. Patient at his baseline chronic renal disease/function, compared to 01/13/2022 labs. Will discharge the patient home with antibiotics due to history and chest x-ray results. 15:22 Data reviewed: vital signs. Data interpreted: Pulse oximetry: on room air is 100 %. pm1 Interpretation: normal. 15:22 Counseling: I had a detailed discussion with the patient and/or guardian regarding: the pm1 historical points, exam findings, and any diagnostic results supporting the discharge/admit diagnosis, lab results, radiology results, the need for outpatient follow up, to return to the emergency department if symptoms worsen or persist or if there are any questions or concerns that arise at home. 03/08 11:05 Order name: CBC with Diff; Complete Time: 11:53 pm1 03/08 11:05 Order name: CMP; Complete Time: 12:36 pm1 03/08 11:05 Order name: COVID-19 SARS RT PCR (Document "Date of Onset" if Symptomatic); Complete pm1 Time: 12:55 03/08 11:05 Order name: Flu; Complete Time: 15:06 pm1 03/08 11:05 Order name: Strep; Complete Time: 12:36 pm1 03/08 12:32 Order name: Throat Culture EDMS 03/08 11:05 Order name: EKG; Complete Time: 11:05 pm1 03/08 11:05 Order name: EKG - Nurse/Tech; Complete Time: 11:40 pm1 03/08 11:05 Order name: Chest Single View XRAY; Complete Time: 12:36 pm1 03/08 11:05 Order name: IV Saline Lock; Complete Time: 11:32 pm1 EC:53 Rate is 86 beats/min. Rhythm is regular, Normal Sinus Rhythm with No ectopy. QRS Brice pm1 is Normal. OH interval is normal. QRS interval is normal. QT interval is normal. No Q waves. T waves are Normal. No ST changes noted. Clinical impression: Normal sinus rhythm, nonspecific ST changes, abnormal EKG. Administered Medications: 11:28 Drug: NS 0.9% 500 ml Route: IV; Rate: bolus; Site: right antecubital; tw2 12:40 Follow up: Response: No adverse reaction; IV Status: Completed infusion; IV Intake: tw2 500ml 15:10 Drug: NS 0.9% 500 ml Route: IV; Rate: bolus; Site: right antecubital; tw2 15:55 Follow up: Response: No adverse reaction; IV Status: Completed infusion; IV Intake: tw2 500ml 15:23 Drug: Rocephin (cefTRIAXone) 1 grams Route: IV; Rate: calculated rate; Site: right tw2 antecubital; 15:26 Follow up: Response: No adverse reaction; IV Status: Completed infusion; IV Intake: 09qudg3 15:23 Drug: Zithromax (azithromycin) 1 grams Route: PO; tw2 15:55 Follow up: Response: No adverse reaction tw2 Disposition Summary: 03/08/22 15:24 Discharge Ordered Location: Home pm1 Problem: new pm1 Symptoms: have improved pm1 Condition: Stable pm1 Diagnosis - Coronavirus infection, unspecified pm1 Followup: pm1 - With: Emergency Department - When: As needed - Reason: Worsening of condition Followup: pm1 - With: Private Physician - When: 2 - 3 days - Reason: Recheck today's complaints, Continuance of care, Re-evaluation by your physician Discharge Instructions: - Discharge Summary Sheet pm1 - Dehydration, Elderly pm1 - COVID-19 pm1 - COVID-19 Frequently Asked Questions pm1 - 10 Things You Can Do to Manage Your COVID-19 Symptoms at Home - [facility] pm1 - Rehydration, Elderly pm1 - COVID-19: Quarantine vs. Isolation - [facility] pm1 Forms: - Medication Reconciliation Form pm1 - Thank You Letter pm1 - Antibiotic Education pm1 - Prescription Opioid Use pm1 Prescriptions: - Zithromax Z-David 250 mg Oral Tablet - take 1 tablet by ORAL route as directed for 5 days Day 1 - take two (2) tablets pm1 one time. Day 2, 3, 4 , 5 take one (1) tablet once daily.; 6 tablet; Refills: 0, Product Selection Permitted Addendum: 03/09/2022 20:10 Co-signature as Attending Physician, Marlon Springer MD. r n Signatures: Dispatcher [employer] Marlon Perez MD MD rn Marinas, Patrick, NP HANDYMAN pm1 Tomeka Kramer RN RN tw2
[2022-03-08] MEDS ORDERED: AZITHROMYCIN 250 MG TAB ONE (15:28)
[2022-03-08] MEDS ORDERED: CEFTRIAXONE 1000 MG/VIAL ONE (15:28)
[2022-03-09 05:23] VITALS: BP 128/51; TEMP 99.4; O2SAT 97
--- NOTE | 2022-03-09 13:37 | EKG ---
Test Date: 2022-03-08 Test Time: 11:33:27 Upset Operator: YOAV MEASUREMENT RESULTS: Intervals: Rate: 86 NV: 164 QRSD: 84 QT: 362 QTc: 433 [place]: P: 76 NV: 164 QRS: 63 T: 74 INTERPRETIVE STATEMENTS: Normal sinus rhythm Nonspecific ST abnormality Abnormal ECG Compared to ECG 08/27/2020 08:39:31 ST (T wave) deviation now present Electronically Signed On 03-09-22 13:35:23 CDT by Messi Huang
== END 2022-03-08 16:05 | disposition home or self-care (01) ==
LOC: ER 10:32
DX: U07.1 COVID-19 (principal); E11.22 Type 2 diabetes mellitus with diabetic chronic kidney disease; N18.9 Chronic kidney disease, unspecified; I10 Essential (primary) hypertension; Z88.3 Allergy status to other anti-infective agents; Z88.5 Allergy status to narcotic agent; Z88.8 Allergy status to other drugs, medicaments and biological substances
CPT/HCPCS: 96361; 93005; 87070; 85025; 36415; 87081; 80053; 87804 ×2; 71045; 96374; 99285; U0003; J7040 ×2